=== PATIENT | male | born 1935 | race Caucasian/White ===

== ENCOUNTER → 2020-08-27 09:53 | Outpatient (BNVA) | payer MEDICARE, SELFPAY | PROVIDERS: PCP Internal Medicine; Visit Provider Hospitalist | DX: Q79.1 Other congenital malformations of diaphragm (principal); J96.10 Chronic respiratory failure, unspecified whether with hypoxia or hypercapnia; J41.0 Simple chronic bronchitis | CPT/HCPCS: 99212 ==

== ENCOUNTER → 2021-05-28 10:08 | Outpatient (BNVA) | payer MEDICARE, OTHER, SELFPAY | PROVIDERS: PCP Internal Medicine; Visit Provider Hospitalist | DX: J98.6 Disorders of diaphragm (principal); J96.11 Chronic respiratory failure with hypoxia; J41.0 Simple chronic bronchitis | CPT/HCPCS: 99212 ==

== ENCOUNTER 2021-11-28 12:28 | Outpatient (REF) | payer MEDICARE, OTHER, SELFPAY ==
--- NOTE | ~2021-11-28 | XR_ITS ---
EXAMINATION: XR CHEST CLINICAL INFORMATION: Disorder of diaphragm COMPARISON: Disorder of diaphragm TECHNIQUE: 2 views of the chest were obtained. FINDINGS: The cardiac and mediastinal contours are normal. There is slight increased density in the right medial upper lobe. This may represent overlapping bony structures, the right clavicular head and posterior fifth rib and vasculature. There is subsegmental atelectasis at the left lung base. The lungs are otherwise clear. There is slight eventration of the anterior right hemidiaphragm. There is no pleural effusion or pneumothorax. There are degenerative changes of the spine. XR/XR chest 2V IMPRESSION: Slight eventration of the anterior right hemidiaphragm. Segmental atelectasis of the left lung base. Increased density in the right medial upper lobe, question representing overlapping bone and vascular structures. Comparison with old outside exams recommended.
== END 2021-11-28 12:29 | disposition home or self-care (01) ==
LOC: HO.XRAY 12:28
PROVIDERS: PCP Internal Medicine; Visit Provider Hospitalist
DX: J98.6 Disorders of diaphragm (principal); J96.11 Chronic respiratory failure with hypoxia; J41.0 Simple chronic bronchitis
CPT/HCPCS: 71046; 99212

== ENCOUNTER → 2022-05-29 13:48 | Outpatient (BNVA) | payer MEDICARE, OTHER, SELFPAY | PROVIDERS: PCP Internal Medicine; Visit Provider Hospitalist | DX: J98.6 Disorders of diaphragm (principal); J96.11 Chronic respiratory failure with hypoxia; J41.0 Simple chronic bronchitis; Z79.899 Other long term (current) drug therapy; Z99.81 Dependence on supplemental oxygen | CPT/HCPCS: 99212 ==

== ENCOUNTER 2022-12-04 12:54 | Outpatient (REF) | payer MEDICARE, OTHER, SELFPAY ==
--- NOTE | ~2022-12-04 | XR_ITS ---
EXAMINATION: XR chest 2V CLINICAL INFORMATION: Reason for Exam J98.6 - Disorders of diaphragm COMPARISON: Chest radiograph 11/28/2021 TECHNIQUE: 2 views of the chest FINDINGS: Redemonstration of focal density in the medial aspect of the right upper lobe. Left retrocardiac hazy opacity may reflect aspiration, atelectasis, or infection. No pneumothorax or pleural effusion. Unchanged cardiomediastinal silhouette. XR/XR chest 2V Impression: Redemonstration of focal density in the medial aspect of the right upper lobe. Left retrocardiac hazy opacity may reflect aspiration, atelectasis, or infection. Recommend follow-up to resolution.
== END 2022-12-04 12:55 | disposition home or self-care (01) ==
LOC: HO.XRAY 12:54
PROVIDERS: PCP Internal Medicine; Visit Provider Hospitalist
DX: J41.0 Simple chronic bronchitis (principal); J98.11 Atelectasis; J98.6 Disorders of diaphragm; J96.11 Chronic respiratory failure with hypoxia; I25.2 Old myocardial infarction; Z99.81 Dependence on supplemental oxygen; Z79.899 Other long term (current) drug therapy
CPT/HCPCS: 71046; 99212

== ENCOUNTER 2023-04-09 12:43 | Outpatient (REF) | payer MEDICARE, OTHER, SELFPAY ==
--- NOTE | ~2023-04-09 | XR_ITS ---
EXAMINATION: XR CHEST CLINICAL INFORMATION: Density seen previously about the right medial upper lobe. COMPARISON: 12/04/2022 and 11/28/2021. TECHNIQUE: 2 views of the chest were obtained. FINDINGS: PA image is rotated making direct comparison difficult. No definite acute parenchymal disease is seen. There is again noted to be some increased density about the right medial upper lobe/superior mediastinum. No destructive bony lesions are identified, and there is question an old healed fracture anterior aspect of the 1st rib which may partially contribute to the density. Heart normal size. Coronary artery stents noted. No pneumothorax. Chronic pleural-parenchymal disease is seen left lung base. There is calcification of the anterior longitudinal ligament with bony bridging at multiple levels consistent with DISH. XR/XR chest 2V IMPRESSION: No acute parenchymal disease. Chronic pleural-parenchymal scarring left base. Right upper lobe medial density again present without definite progression or destructive findings.
== END 2023-04-09 12:44 | disposition home or self-care (01) ==
LOC: HO.XRAY 12:43
PROVIDERS: PCP Internal Medicine; Visit Provider Hospitalist
DX: R93.89 Abnormal findings on diagnostic imaging of other specified body structures (principal)
CPT/HCPCS: 71046

== ENCOUNTER 2024-06-03 14:56 | Outpatient (AMB) | payer MEDICARE, OTHER, SELFPAY ==
--- NOTE | 2024-06-03 15:28 | MHC.OFFVIS ---
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 Back in the springtime he did have an exacerbation with bronchitis. He required medicines including antibiotics at this time. He has been feeling better under trilogy inhaler. The trilogy inhaler has improved his respiratory status where he can actually take breaks from the oxygen. Unfortunately, this [facility] is extremely expensive for him to get. Therefore we have to consider an alternative to the trelegy at this time and therefore will try this the O2 with the Flovent inhaler and see if this is as effective. If it is not effective then we will perform a PA through the [place] system in order to getting the medication that he needs. A big issue is that he was admitted to [facility] back in the summertime in April of 2019 with a heart attack. He was taking care [facility]. He did have a chest x-ray there not take a look at that to make sure that we add that to the documentation. He has been using the oxygen and it has been very helpful and beneficial. 12/04/2022 the patient is here for a pulmonary follow-up visit. Overall the patient continues to do well. The oxygen therapy has been affecting beneficial. He does use it with activity and also with sleep. The patient continues with his respiratory therapy with good effect. We again looked at his previous chest x-ray demonstrating elevation in the diaphragm and also atelectasis. He continues on the Trelegy inhaler with good effect. He needs to monitor closely for any worsening glaucoma. Will follow-up in 12 months with cxr. 06/03/2024 the patient is here for a pulmonary follow-up visit. Overall the patient has been doing well. Continues to have dyspnea on exertion. [id number] severity. He also continues to use the oxygen with good effect. We did review his previous chest x-ray demonstrating some pleural parenchymal scarring. This is likely related to his exposure to asbestos. 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 Subsequently after that after he returned from the he was diagnosed with tuberculosis where he spent 8-9 months in a solitary him. The patient ultimately was released after complete treatment of the disease. And therefore left with some scarring of the lungs as well. He continues uses respiratory therapy with good effect. The patient also has been using the oxygen with good effect. Will have him get a chest x-ray today to see if there is any progression of his underlying pleural parenchymal disease. [facility] Medical History (Updated 06/05/24 @ 22:15 by Phuc Card MD) Tuberculosis Asbestos-induced pleural plaque Abnormal chest x-ray Atelectasis Elevated diaphragm Chronic respiratory failure COPD (chronic obstructive pulmonary disease) Family History (Updated 08/06/20 @ 22:23 by Phuc Card MD) Father No problems noted. Social History (Updated 05/28/21 @ 10:42 by Shanon Boyd Martin) Patient Tobacco Use Status: Former Tobacco user Tobacco use type: Cigarette Years Smoked: Quit 1997 Physical Exam Vital Signs: Last Vital Signs Pulse 73 06/03/24 15:29 BP 128/76 06/03/24 15:29 Pulse Ox 93 06/03/24 15:29 Oxygen Delivery Method Room Air 06/03/24 15:29 BMI result Body Mass Index 27.3 Results Reviewed Results Reviewed: [address] [address] XRay Report Signed Patient: Leonel Maldonado MR#: [id number] : 1935 Acct:[id number] Age/Sex: 87 / M ADM Date: 04/09/23 Loc: [facility] Attending Dr: Phuc Card MD Ordering Physician: Phuc Card MD Date of Service: 04/09/23 Procedure(s): XR chest 2V Accession Number(s): [id number] cc: Phuc Card MD~ EXAMINATION: XR CHEST CLINICAL INFORMATION: Density seen previously about the right medial upper lobe. COMPARISON: 12/04/2022 and 11/28/2021. TECHNIQUE: 2 views of the chest were obtained. FINDINGS: PA image is rotated making direct comparison difficult. No definite acute parenchymal disease is seen. There is again noted to be some increased density about the right medial upper lobe/superior mediastinum. No destructive bony lesions are identified, and there is question an old healed fracture anterior aspect of the 1st rib which may partially contribute to the density. Heart normal size. Coronary artery stents noted. No pneumothorax. Chronic pleural-parenchymal disease is seen left lung base. There is calcification of the anterior longitudinal ligament with bony bridging at multiple levels consistent with DISH. XR/XR chest 2V IMPRESSION: No acute parenchymal disease. Chronic pleural-parenchymal scarring left base. Right upper lobe medial density again present without definite progression or destructive findings. Dictated By: Daniele Mills MD Signed By: <Electronically signed by Daniele Mills MD in [place]> 04/16/23 1044 DD/ 1300 TD/TT: Scientific Manager: GILES Assessment & Plan Assessment & Plan (1) Elevated diaphragm: Comment: chronic Code(s): J98.6 - Disorders of diaphragm Category: Medical Plan: Incentive spirometry (2) Chronic respiratory failure: Comment: Due to chronic stable COPD Code(s): J96.10 - Chronic respiratory failure, unspecified whether with hypoxia or hypercapnia Category: Medical Qualifiers: Respiratory failure complication: hypoxia Qualified Code(s): J96.11 - Chronic respiratory failure with hypoxia Plan: Continue oxygen supplementation 2 L pulse with activity and 2 L at night (3) COPD (chronic obstructive pulmonary disease): Code(s): J44.9 - Chronic obstructive pulmonary disease, unspecified Category: Medical Qualifiers: COPD type: chronic bronchitis Chronic bronchitis type: simple Qualified Code(s): J41.0 - Simple chronic bronchitis Plan: Cont respiratory therapy (4) Asbestos-induced pleural plaque: Code(s): J92.0 - Pleural plaque with presence of asbestos Category: Medical (5) Tuberculosis: Comment: s/p treatment, with persistent RUL fibrosis Code(s): A15.9 - Respiratory tuberculosis unspecified Category: Medical Plan Chest x-ray continue Trelegy inhaler continue oxygen supplementation with activity at 2L/pulse and sleep 2L the patient does have evidence of asbestos disease in addition to his history of tuberculosis likely both related to his time serving in the [employer]. follow-up 12 months Orders: Orders XR chest 2V 06/03/24 J92.0 - Pleural plaque with presence of asbestos Coding Level of Care Code Est Pt Level 4 (65851) Diagnoses Elevated diaphragm J98.6 Chronic respiratory failure with hypoxia J96.11 Respiratory failure complication: hypoxia Simple chronic bronchitis J41.0 COPD type: chronic bronchitis Chronic bronchitis type: simple Asbestos-induced pleural plaque J92.0 Tuberculosis A15.9 Time Spent (min) 18
[2024-06-03 15:29] VITALS: BP 128/76; PULSE 73; O2SAT 93; BMI 27.3
== END 2024-06-03 15:54 | disposition home or self-care (01) ==
PROVIDERS: PCP Internal Medicine; Visit Provider Hospitalist
DX: J98.6 Disorders of diaphragm (principal); J96.11 Chronic respiratory failure with hypoxia; J41.0 Simple chronic bronchitis; J92.0 Pleural plaque with presence of asbestos; A15.9 Respiratory tuberculosis unspecified
CPT/HCPCS: 99214

== ENCOUNTER 2024-06-03 14:56 | Outpatient (REF) | payer MEDICARE, OTHER, SELFPAY ==
--- NOTE | ~2024-06-03 | XR_ITS ---
EXAMINATION: XR CHEST CLINICAL INFORMATION: J92.0 - Pleural plaque with presence of asbestos COMPARISON: X-ray dated April 09, 2023. TECHNIQUE: 2 views of the chest were obtained. FINDINGS: Submitted for interpretation on August 15, 2024. Ill-defined masslike opacity in the medial right upper hemithorax. Pulmonary reticular pattern. Prominence of the interstitial lung markings. Opacity left lower hemithorax with a linear/horizontal morphology pattern. No pneumothorax. Cardiomediastinal silhouette is normal in size with calcified plaque aortic arch. Multilevel thoracic spondylosis. Osteopenia versus osteoporosis. XR/XR chest 2V IMPRESSION: Airspace disease versus malignancy in the right upper hemithorax. Chronic interstitial lung disease. Recommend IV contrast enhanced CT chest for further imaging evaluation. Electronically signed by: Arnulfo Gonzalez MD 08/15/2024 09:06 AM [facility]
== END 2024-06-03 14:57 | disposition home or self-care (01) ==
LOC: HO.XRAY 14:56
PROVIDERS: PCP Internal Medicine; Visit Provider Hospitalist
DX: J92.0 Pleural plaque with presence of asbestos (principal); J98.6 Disorders of diaphragm; J96.11 Chronic respiratory failure with hypoxia; J41.0 Simple chronic bronchitis; A15.9 Respiratory tuberculosis unspecified
CPT/HCPCS: 71046; 99212

== ENCOUNTER → 2024-06-03 16:01 | Outpatient (BNV) | payer MEDICARE, OTHER, SELFPAY | PROVIDERS: PCP Internal Medicine; Visit Provider Radiology Diagnostic Radiology | DX: J92.0 Pleural plaque with presence of asbestos (principal) | CPT/HCPCS: 71046 ==

== ENCOUNTER 2024-09-30 12:25 | Outpatient (REF) | payer MEDICARE, OTHER, SELFPAY ==
--- NOTE | ~2024-09-30 | CT_ITS ---
EXAMINATION: CT CHEST WITHOUT IV CONTRAST INDICATION: R93.89 - Abnormal findings on diagnostic imaging of other specified body... COMPARISON: Correlation is made with PA and lateral views of the chest dated 06/03/2024. TECHNIQUE: Helical CT scan of the chest was performed without intravenous contrast. Coronal and sagittal reformatted images were generated and reviewed. This CT exam was performed with one or more of the following dose reduction techniques: automated exposure control, adjustment of the mA and/or kV according to patient size, use of iterative reconstruction technique. DLP: 223 mGy-cm CHEST: THYROID: There is a 2.1 cm nodule in the right thyroid lobe. LUNGS:There are moderate emphysematous changes. There is subpleural scarring and interstitial prominence bilaterally. No focal airspace opacity or mass is identified to correspond to the abnormality noted on chest x-ray. MEDIASTINUM: There are 10 mm pericarinal lymph nodes. AYAN: Evaluation of the hilar regions is limited by lack of intravenous contrast material. CARDIOVASCULATURE: The heart is normal in size. There is no pericardial effusion. The thoracic aorta is normal in caliber. DEGREE OF CORONARY CALCIFICATION: severe PLEURA: There is no pleural effusion. No pneumothorax. MAIN AIRWAYS: The mainstem bronchi and proximal branches are patent. AXILLA: There is no axillary lymphadenopathy. BONES AND SOFT TISSUES: There is degenerative disc disease of the spine. UPPER ABDOMEN: The visualized portions of the liver, spleen, and adrenals have an unremarkable appearance. CT/CT chest wo IV con IMPRESSION: 1. Moderate emphysema. Subpleural scarring and interstitial prominence. No mass or airspace opacity is seen to correspond to the abnormality noted on chest x-ray from 06/03/2024. This likely represented pneumonia which resolved in the interim. 2. 2.1 cm right thyroid nodule. Thyroid ultrasound is suggested. Electronically signed by: Mario Capps MD 10/03/2024 09:12 AM [facility]
== END 2024-09-30 12:26 | disposition home or self-care (01) ==
LOC: HO.CT 12:25
PROVIDERS: PCP Internal Medicine; Visit Provider Hospitalist
DX: R93.89 Abnormal findings on diagnostic imaging of other specified body structures (principal)
CPT/HCPCS: 71250

== ENCOUNTER → 2024-09-30 12:30 | Outpatient (BNV) | payer MEDICARE, OTHER, SELFPAY | PROVIDERS: PCP Internal Medicine; Visit Provider Radiology Diagnostic Radiology | DX: J43.9 Emphysema, unspecified (principal); E04.1 Nontoxic single thyroid nodule | CPT/HCPCS: 71250 ==

== ENCOUNTER 2024-11-16 09:30 | Outpatient (AMB) | payer MEDICARE, OTHER, SELFPAY ==
[2024-11-16 09:38] VITALS: BP 140/68; PULSE 63; O2SAT 94; BMI 29.0
--- NOTE | 2024-11-16 09:38 | A.OFFVIS_ITS ---
Vital Signs 11/16/24 09:38 Height 6 ft Weight 213 lb 13.574 oz BMI 29.0 BP 140/68 H Blood Pressure Location Rt brachial Position Sitting Pulse 63 Pulse Source Pulse Oximeter Pulse Oximetry (%) 94 Oxygen Delivery Method Room Air Intake Visit Reasons: COPD Allergies Sulfa Drugs Allergy (Intermediate, Uncoded 11/16/24 09:43) Vomiting HPI Comments Details: The patient is an 89-year-old gentleman known COPD and MTB. Back in the springtime he did have an exacerbation with bronchitis. He required medicines including antibiotics at this time. He has been feeling better under trilogy inhaler. The trilogy inhaler has improved his respiratory status where he can actually take breaks from the oxygen. Unfortunately, this inhalers not cover [facility] the [facility] is extremely expensive for him to get. Therefore we have to consider an alternative to the trelegy at this time and therefore will try this the O2 with the Flovent inhaler and see if this is as effective. If it is not effective then we will perform a PA through the [facility] system in order to getting the medication that he needs. A big issue is that he was admitted to [facility] back in the summertime in April of 2019 with a heart attack. He was taking care [facility]. He did have a chest x-ray there not take a look at that to make sure that we add that to the documentation. He has been using the oxygen and it has been very helpful and beneficial. 12/04/2022 the patient is here for a pulmonary follow-up visit. Overall the patient continues to do well. The oxygen therapy has been affecting beneficial. He does use it with activity and also with sleep. The patient continues with his respiratory therapy with good effect. We again looked at his previous chest x-ray demonstrating elevation in the diaphragm and also atelectasis. He continues on the Trelegy inhaler with good effect. He needs to monitor closely for any worsening glaucoma. Will follow-up in 12 months with cxr. 06/03/2024 the patient is here for a pulmonary follow-up visit. Overall the patient has been doing well. Continues to have dyspnea on exertion. [id number] severity. He also continues to use the oxygen with good effect. We did review his previous chest x-ray demonstrating some pleural parenchymal scarring. This is likely related to his exposure to asbestos. 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 Subsequently after that after he returned from the he was diagnosed with tuberculosis where he spent 8-9 months in a solitary him. The patient ultimately was released after complete treatment of the disease. And therefore left with some scarring of the lungs as well. He continues uses respiratory therapy with good effect. The patient also has been using the oxygen with good effect. Will have him get a chest x-ray today to see if there is any progression of his underlying pleural parenchymal disease. 11/16/2024 the patient is here for a pulmonary follow-up visit. Overall he is doing okay. The patient had 1 episode were right-sided chest discomfort. He did take the inhaler and then place him oxygen and he felt better. Has not had any more episodes like that. He does have some reproducible discomfort on the right acromion joint. He also did have a CT scan of the chest on 10/03/2024 that we personally reviewed in the office. No abnormalities to explain the right- sided chest discomfort. Although the patient does have moderate degree of e mphysema, pleural thickening with some small areas of asbestos. In addition to some interstitial lung disease. I do believe that she has his time in the [employer] exposed to asbestos resulted in some of these changes. In addition to this he does have thyroid nodule on the right side. It was recommended that he get an ultrasound. Will go ahead and request the ultrasound at this time and then he should follow-up with either primary care or endocrinology. He will continue with the Trelegy. Will see if we can get the medication from the [place] since it has been working effectively for him. He continues use the oxygen with good effect. Will follow-up in 6 months. [facility] Medical History (Updated 11/16/24 @ 10:00 by Phuc Card MD) Thyroid nodule Tuberculosis Asbestos-induced pleural plaque Abnormal chest x-ray Atelectasis Elevated diaphragm Chronic respiratory failure COPD (chronic obstructive pulmonary disease) Family History (Updated 08/06/20 @ 22:23 by Phuc Card MD) Father No problems noted. Social History Patient Tobacco Use Status: Former Tobacco user Tobacco use type: Cigarette Years Smoked: Quit 1997 Review of Systems Const Denies night sweats Eyes Reports loss of vision ENT Denies change in voice, Denies lip swelling, Denies mouth pain, Reports nasal congestion, Reports nasal discharge and Denies tongue swelling Card Denies chest pain and Reports dyspnea on exertion Resp Reports cough and Reports dyspnea on exertion GI Denies abdominal pain Musc Denies no additional complaints Neuro Denies Neuro-related abnormal movements and Reports loss of vision Psych Denies no additional complaints Russ/Lymph Denies easy bleeding and Denies lymphadenopathy Aller/Immun Denies lip swelling and Denies tongue swelling Physical Exam Vital Signs: Last Vital Signs Pulse 63 11/16/24 09:38 BP 140/68 H 11/16/24 09:38 Pulse Ox 94 11/16/24 09:38 Oxygen Delivery Method Room Air 11/16/24 09:38 BMI result Body Mass Index 29.0 Const General: alert Neck Neck: Yes normal visual inspection, Yes full ROM and Yes no lymphadenopathy Chest Chest palpation & inspection: normal inspection of the chest Resp Auscultation: no rales, no rhonchi, no wheezes and diminished lung sounds Cardio Rate: regular rate Rhythm: regular rhythm Heart sounds: S1 normal heart sound present and S2 normal heart sound present GI Palpation (GI): Soft to palpation and nontender Auscultation: normal bowel sounds General: Yes no CVA tenderness Back/Spine/Pelvis Back: no CVA tenderness Skin General skin exam: rashes and/or lesions noted Assessment & Plan Assessment & Plan (1) Elevated diaphragm: Comment: chronic Code(s): J98.6 - Disorders of diaphragm Category: Medical Plan: Incentive spirometry (2) Chronic respiratory failure: Comment: Due to chronic stable COPD Code(s): J96.10 - Chronic respiratory failure, unspecified whether with hypoxia or hypercapnia Category: Medical Qualifiers: Respiratory failure complication: hypoxia Qualified Code(s): J96.11 - Chronic respiratory failure with hypoxia Plan: Continue oxygen supplementation 2 L pulse with activity and 2 L at night (3) COPD (chronic obstructive pulmonary disease): Code(s): J44.9 - Chronic obstructive pulmonary disease, unspecified Category: Medical Qualifiers: COPD type: chronic bronchitis Chronic bronchitis type: simple Qualified Code(s): J41.0 - Simple chronic bronchitis Plan: Cont respiratory therapy (4) Asbestos-induced pleural plaque: Code(s): J92.0 - Pleural plaque with presence of asbestos Category: Medical (5) Tuberculosis: Comment: s/p treatment, with persistent RUL fibrosis Code(s): A15.9 - Respiratory tuberculosis unspecified Category: Medical (6) Thyroid nodule: Code(s): E04.1 - Nontoxic single thyroid nodule Category: Medical Plan CT chest with pleural thickening and some asbestos, ILD and emphysema continue Trelegy inhaler continue oxygen supplementation with activity at 2L/pulse and sleep 2L the patient does have evidence of asbestos disease in addition to his history of tuberculosis likely both related to his time serving in the [employer]. Thyroid US follow-up 6 months Orders: Orders US thyroid Today E04.1 - Nontoxic single thyroid nodule Medications: Refilled [id number] 100-62.5-25 mcg (Trelegy Ellipta) 1 inh inhalation DAILY 60 ea 11RF 30 days J44.9 - Chronic obstructive pulmonary disease, unspecified Coding Level of Care Code Est Pt Level 4 (45207) Diagnoses Elevated diaphragm J98.6 Chronic respiratory failure with hypoxia J96.11 Respiratory failure complication: hypoxia Simple chronic bronchitis J41.0 COPD type: chronic bronchitis Chronic bronchitis type: simple Asbestos-induced pleural plaque J92.0 Tuberculosis A15.9 Thyroid nodule E04.1 Time Spent (min) 17
--- OUTSIDE RECORDS SUMMARY | 2024-11-16 10:44 | XMS_ITS ---
Author Name [facility] ([place]) Organization [facility] Address [address] [place] [address] Care Team Providers Care Lead Technologist In Cytogenetics Name Role Phone GILES FUENTES Primary Care Provider UnavailBILLIE Lr Unavailable Unavailable MONIKA FUENTES Unavailable Unavailable JACOB DOTSON Unavailable Unavailable FARIDEH HOLLAND Unavailable Unavailable TYLER NICOLE Unavailable UnavailRUDY Wood Unavailable Unavailable JOSE DE JESUS MONTGOMERY Unavailable Unavailable Insurance Providers: All historical and current Section Date Range: From patient's date of to the date document was created. This section includes the names of all active insurance providers for the patient. Insurance Provider Type of Coverage Plan Name Start of Policy Coverage End of Policy Coverage Group Number Member ID Insurance Provider's Telephone Number Policy Mccullough's Name Patient's Relationship to Policy Mccullough CAREMARK PRESCRIPT ION GEHA Sep 14, 2014 [id number] [phone] FANY LEMUS ON PATIENT CAREMARK PRESCRIPT ION SUSI ATKINSON Sep 14, 2014 [id number] [phone] FANY LEMUS ON PATIENT CAREMARK PRESCRIPT ION Sep 14, 2014 [id number] ALLAN,MYR ON PATIENT GEHA (SECONDARY ) PREFERRED PROVIDER ORGANIZAT ION (PPO) HIGH OPTIO N [facility] A&B Sep 14, 2005 [id number] ALLAN,MYR ON PATIENT GEHA (SECONDARY ) PREFERRED PROVIDER ORGANIZAT ION (PPO) GEHA CONNE CTION DENT Sep 14, 2005 [id number] ALLAN,MYR ON PATIENT GEHA FEHB PREFERRED PROVIDER ORGANIZAT ION (PPO) SUSI AL GOV Sep 14, 2005 [id number] [id number] ALLAN,MYR ON PATIENT GEHA FEHB PREFERRED PROVIDER ORGANIZAT ION (PPO) SUSI AL* Sep 14, 1989 [id number] [id number] ALLAN,MYR ON PATIENT GEHA-BEHAV [facility] GEHA HIGH OPTIO N Sep 14, 2021 [id number] ALLAN,MYR ON PATIENT MEDICARE (WNR) MEDICARE (M) PART A May 15, 2000 PART A [id number] ALLAN,MYR ON PATIENT MEDICARE (WNR) MEDICARE (M) PART B May 15, 2000 PART B [id number] ALLAN,MYR ON PATIENT MEDICARE (WNR) MEDICARE (M) PART A May 15, 2000 PART A [id number] ALLAN,MYR ON PATIENT MEDICARE (WNR) MEDICARE (M) PART B May 15, 2000 PART B [id number] ALLAN,MYR ON PATIENT MEDICARE (WNR) MEDICARE (M) PART A May 15, 2000 PART A [id number] ALLAN,MYR ON PATIENT MEDICARE (WNR) MEDICARE (M) PART B May 15, 2000 PART B [id number] ALLAN,MYR ON PATIENT MEDICARE (WNR) MEDICARE (M) PART A May 15, 2000 PART A [id number] FANY LEMUS ON PATIENT MEDICARE (WNR) MEDICARE (M) PART B May 15, 2000 PART B [id number] FANY LEMUS ON PATIENT Selected Encounter This section includes the information on record at [place] for the Encounter. Date/Time Encounter Type Encounter Description Reason Provider Source Nov 09, 2024 04:00 PM SELF CARE MNGMENT TRAINING [facility] Nursing (RN / LP) ICD-10-CM I10 Essential (primary) hypertension FRANSICO MCNAIR E Encounter Template Text not used by [place] Assessments - Encounter Diagnoses This section includes the primary and secondary diagnoses documented for the Encounter. Date/Time Primary/Secondary Diagnosis Diagnosis Name Provider Source Nov 13, 2024 06:19 PM PRIMARY Essential (primary) hypertension FRANSICO MCNAIR [place] [facility] [place] [facility] Nov 13, 2024 06:19 PM SECONDARY Athscl heart disease of [place] coronary artery w/o ang pctrs FRANSICO MCNAIR [place] [facility] [place] [facility] Nov 13, 2024 06:19 PM SECONDARY Carcinoma in situ of prostate VIRGILIO MCNAIRE N [place] [facility] [place] [facility] Nov 13, 2024 06:19 PM SECONDARY Legal blindness, as defined in [place] FRANSICO MCNAIR [place] [facility] [place] [facility] Nov 13, 2024 06:19 PM SECONDARY Other specified chronic obstructive pulmonary disease FRANSICO MCNAIR [place] [facility] [place] [facility] Plan of Treatment: Future Appointments (+ 6 months) and Future Tests (+/- 45 days) The Plan of Treatment section includes future care activities for the patient from all [place] treatmentfacilities. This section includes future appointments and future orders which are active, pending or scheduled. Future Appointments This section includes appointments that were scheduled to occur 6 months from the date of the Encounter, up to a maximum of 20 appointments. The data comes from all [place] treatment facilities. Appointment Date/Time Appointment Type Appointme nt Facility Name Feb 24, 2025 11:30 AM AMBULATORY - MEDICINE [facility] Apr 13, 2025 02:30 PM AMBULATORY - MEDICINE [place] [facility] [place] [facility] Active, Pending, and Scheduled Orders This section includes a listing of several types of active, pending, and scheduled orders, including clinic medications orders, diagnostic test orders, procedure orders and consult orders; where the start date of the order is 45 days before the date of the Encounter or 45 days after the date of theEncounter. The data comes from all [place] treatment facilities. Test Date/Time Test Type Test Details Facility Name Oct 17, 2024 08:00 AM Laboratory - Chemistry Order HEMOGLOBIN A1C PANEL BLOOD (LAV-BLOOD) SP [facility] Lab Results: +/- 30 days of the encounter This section includes the Chemistry and Hematology Lab Results on record with [place] for the patient. Radiology Reports and Pathology Reports are provided separately, in subsequent sections. Lab Results This section contains the Chemistry/Hematology Results that were resulted 30 days before or 30 daysafter the date of the Encounter. Date/Time Source Result Type Result - Unit Interpretation Reference Range Comment Oct 21, 2024 11:05 AM [facility] VITAMIN D (25-OH) Specimen Type: SERUM No comment entered. Ordering Provider: GILES FUENTES Report Released Date/Time: Sep 02, 2024 08:56 AM Reporting Lab: [facility] [address] [facility] [address] Performing Lab: [address] [address] VITAMIN D (25-OH) 39 ng/mL 20-50 Oct 21, 2024 11:05 AM [facility] PTH INTACT Specimen Type: SERUM No comment entered. Ordering Provider: GILES FUENTES Report Released Date/Time: Sep 02, 2024 08:56 AM Reporting Lab: [facility] [address] [address] Performing Lab: [address] [address] PTH INTACT 77.4 pg/mL H 8.7-77.1 Oct 21, 2024 11:05 AM [facility] MICROALBUMIN CREATININE RATIO PANEL Specimen Type: URINE No comment entered. Ordering Provider: GILES FUENTES Report Released Date/Time: Sep 02, 2024 08:56 AM Reporting Lab: [address] [address] Performing Lab: [address] [address] MICROALBUMIN/C REATININE RATIO 11.9 mg/g 0-29.9 MICROALBUMIN,Q UANTITATIVE 2.4 mg/dL RR UNAVAIL CREATININE URINE 202.37 mg/dL Oct 21, 2024 11:05 AM [facility] LIVER FUNCTION Specimen Type: SERUM No comment entered. Ordering Provider: GILES FUENTES Report Released Date/Time: Sep 02, 2024 08:56 AM Reporting Lab: [address] [address] Performing Lab: [address] [address] PROTEIN,TOTAL 7.8 g/dL 6.0-8.3 ALBUMIN 3.9 g/dL 3.5-5.0 ALKALINE PHOSPHATASE 160 U/L H 40-150 AST 22 U/L 5-34 ALT 28 U/L BILIRUBIN, TOTAL 0.8 mg/dL 0.2-1.2 Oct 21, 2024 11:05 AM [facility] BASIC METABOLIC PANEL (non-fasting) Specimen Type: SERUM No comment entered. Ordering Provider: GILES FUENTES Report Released Date/Time: Sep 02, 2024 08:56 AM Reporting Lab: [address] [address] Performing Lab: [address] [address] UREA NITROGEN 32 mg/dL H 7-25 GLUCOSE 122 mg/dL H 65-100 SODIUM 140 mmol/L 135-145 POTASSIUM 4.9 mmol/L 3.5-5.0 CHLORIDE 104 mmol/L 100-110 CO2 27 meq/L 20-30 CREATININE, Serum 1.06 mg/dL 0.50-1.40 eGFR(CKD-EPI 2020) 67 mL/min >60 Oct 21, 2024 11:05 AM [facility] LIPID PANEL, NON FASTING Specimen Type: SERUM No comment entered. Ordering Provider: GILES FUENTES Report Released Date/Time: Sep 02, 2024 08:58 AM Reporting Lab: [facility] [address] [facility] [address] Performing Lab: [address] [address] CHOLESTEROL 139 mg/dL TRIGLYCERIDE 129 mg/dL 0-150 LDL calculated 69 mg/dL 0-129 CHOL/HDL 3.2 HDL CHOLESTEROL 44 mg/dL 40-60 Oct 21, 2024 11:05 AM [facility] CBC Specimen Type: BLOOD No comment entered. Ordering Provider: GILES FUENTES Report Released Date/Time: Sep 02, 2024 08:56 AM Reporting Lab: [address] [address] Performing Lab: [address] [address] WBC 8.46 10*3/uL 4.50-11.00 RBC 4.86 10*6/uL 4.23-5.66 HGB 14.9 g/dL 12.8-17 HCT 45.7 39.2-50.4 MCV 94.0 fL 82-99 MCHC 32.6 g/dL 30.8-35.1 PLT 180 10*3/uL 140-360 RDW-CV 12.9 12.0-16.0 MCH 30.7 pg 26.2-32.6 Oct 21, 2024 11:05 AM [facility] GAMMA-GTP Specimen Type: SERUM No comment entered. Ordering Provider: GILES FUENTES Report Released Date/Time: Oct 21, 2024 03:59 PM Reporting Lab: [address] [address] Performing Lab: [address] [address] GAMMA-GTP 116 U/L H 10-65 Oct 12, 2024 01:30 PM [facility] PSA Specimen Type: SERUM No comment entered. Ordering Provider: GILES FUENTES Report Released Date/Time: Oct 12, 2024 01:21 PM Reporting Lab: [place] [facility] [address] [facility] [address] Performing Lab: [facility] [address] [facility] [address] PSA 36.05 ng/mL H 0.00-4.00 Vital Signs: All taken on the encounter date This section contains inpatient and outpatient Vital Signs collected on the date of the Encounter. Date/Time Temperature Pulse Blood Pressure Respiratory Rate SP02 Pain Height Weight Body Mass Index Source Nov 09, 2024 04:00 PM 96.8 68 110/60 18 96 0 204 29 [facility] Social History: Smoking Status (Most current) and Tobacco Use (All prior to encounter date) This section includes the most current, and the historical, smoking and tobacco- related health factors from the [place] facility where the Encounter took place. Current Smoking Status This section includes the most current smoking, or tobacco-related health factor, from the [place] facility where the Encounter took place. Date/Time Current Smoking Status Comment Facil ity Aug 31, 2024 01:52 PM VA-TOBACCO USE FOR BERNICE CIGARETTES [facility] Tobacco Use History This section includes a history of the smoking, or tobacco-related health factors, that were collected on or before the date of the Encounter. The data comes from the [place] facility where the Encounter took place. Date/Time Smoking Status/Tobacco Use Comment F acility Aug 31, 2024 01:52 PM VA-TOBACCO USE FOR BERNICE CIGARETTES [place] [facility] [place] [facility] Sep 02, 2023 05:30 PM VA-TOBACCO FORMER USER [place] [facility] [place] [facility] Sep 02, 2023 05:30 PM VA-TOBACCO QUIT 15 YRS OR MORE [place] [facility] [place] [facility] Apr 24, 2022 01:00 PM VA-TOBACCO FORMER USER [place] [facility] [place] [facility] Apr 24, 2022 01:00 PM VA-TOBACCO QUIT 15 YRS OR MORE [facility] [place] [facility] Dec 05, 2021 02:00 PM VA-TOBACCO USE DEC LINED TO ANSWER [facility] [place] [facility] Nov 24, 2021 04:05 PM VA-TOBACCO USE DEC LINED TO ANSWER [place] [facility] [place] [facility] Sep 20, 2020 08:40 AM VA-TOBACCO NEVER USED [place] [facility] Advance Directives: All historical and current Section Date Range: From patient's date of to the date document was created. This section includes ALL of a patient's completed or amended [place] Advance and Rescinded Directives. The entries below indicate that a directive exists for the patient, but an actual copy is not included with this document. The data comes from all [place] facilities. Date Advance Directives Provider Source Nov 11, 2016 ADVANCE DIRECTIVE ELROY CHÁVEZ [place] [facility] [place] [facility] Jul 08, 2006 ADVANCE DIRECTIVE [facility] Encounter Notes: All associated encounter notes This section contains the clinical notes associated to the Encounter. Date/Time Encounter Note(s) Provider Source Nov 09, 2024 04:00 PM [facility] NURSING NOTE: LOCAL TITLE: [facility] RN PROGRESS NOTE STANDARD TITLE: [facility] NURSING NOTE DATE OF NOTE: NOV 09, 2024@16:00 ENTRY DATE: NOV 13, 2024@18:02:16 AUTHOR: ADALGISA MCNAIR COSIGNER: URGENCY: STATUS: COMPLETED Nursing Progress Note Active and Recently Outpatient Medications (including Supplies): Active Outpatient Medications Status 1) ALBUTEROL 90MCG (CFC-F) 200D ORAL INHL INHALE 1 TO 2 PUFFS ACTIVE BY MOUTH FOUR TIMES DAILY NEEDED Indication: FOR BRONCHOSPASM 2) AMLODIPINE BESYLATE 10MG TAB TAKE ONE TABLET BY MOUTH ONCE ACTIVE DAILY FOR BLOOD PRESSURE/HEART, DO NOT TAKE WITH GRAPEFRUIT JUICE 3) ASPIRIN 81MG EC TAB TAKE ONE TABLET BY MOUTH ONCE DAILY TO ACTIVE PREVENT STROKE/HEART ATTACK Indication: FOR BLOOD CLOT PREVENTION FOLLOWING PCI 4) ATORVASTATIN CALCIUM 80MG TAB TAKE ONE TABLET BY MOUTH ONCE ACTIVE DAILY FOR CHOLESTEROL 5) BREZTRI 160/9/4.8MCG/ACT 120D ORAL INHL INHALE 2 INHALATIONS ACTIVE BY MOUTH TWICE DAILY -RINSE MOUTH AFTER USE Indication: FOR BRONCHOSPASM PREVENTION WITH COPD 6) BRIMONIDINE 0.2%/BRINZOLAMID 1% OPH SUSP INSTILL 1 DROP INTO ACTIVE EACH EYE TWICE DAILY 7) CARVEDILOL 3.125MG TAB TAKE ONE TABLET BY MOUTH TWICE DAILY ACTIVE Indication: FOR HIGH BLOOD PRESSURE 8) CHOLECALCIF 25MCG (D3-1,000UNIT) TAB TAKE ONE TABLET BY ACTIVE MOUTH ONCE DAILY FOR VITAMIN SUPPLEMENTATION 9) EPLERENONE 25MG TAB TAKE ONE TABLET BY MOUTH ONCE DAILY ACTIVE Indication: FOR HIGH BLOOD PRESSURE 10) KETOCONAZOLE 2% CREAM APPLY A THIN LAYER TOPICALLY TWICE ACTIVE DAILY NEEDED Indication: FOR SEBORRHEIC DERMATITIS 11) LATANOPROST 0.005% OPH SOLN INSTILL 1 DROP INTO EACH EYE AT ACTIVE BEDTIME 12) LOSARTAN 100MG TAB TAKE ONE TABLET BY MOUTH ONCE DAILY FOR ACTIVE BLOOD PRESSURE/HEART Indication: FOR HIGH BLOOD PRESSURE 13) MULTIVIT/OPHTH AREDS2/LUTE/ZEAX CAP/TAB TAKE 1 CAPSULE BY ACTIVE MOUTH TWICE DAILY IN THE MORNING AND EVENING, WITH FOOD 14) PRIMIDONE 50MG TAB TAKE ONE TABLET BY MOUTH THREE TIMES A ACTIVE DAY 15) TIMOLOL MALEATE 0.5% OPH SOLN INSTILL 1 DROP INTO EACH EYE ACTIVE TWICE DAILY 16) TORSEMIDE 20MG TAB TAKE ONE TABLET BY MOUTH ONCE DAILY ACTIVE Inactive Outpatient Medications Status 1) DOCUSATE NA 100MG CAP TAKE ONE CAPSULE BY MOUTH TWICE DAILY NEEDED TO SOFTEN STOOL Indication: FOR CONSTIPATION 2) KETOCONAZOLE 2% SHAMPOO SHAMPOO SMALL AMOUNT TOPICALLY ONCE DAILY Indication: FOR FUNGAL INFECTION OF THE SKIN Active Non-VA Medications Status 1) Non-VA OXYGEN MISCELLANEOUS 2 LITERS VIA NC AT NIGHT ACTIVE DIRECTED NEEDED 19 Total Medications MEDICATION REVIEW Medication review completed during home visit. The was given the opportunity to discuss and ask questions about all prescription medications as well as dietary and herbal supplements, vitamins, OTC medications, etc. Currently the is taking his/her medications as per the active orders in the electronic record. A copy of the active medication list was left in patient's home at time of visit. identified by: Facial Recognition Length of visit in home:45 min Problem addressed for this visit:COPD, Med compliance, blindness, HTN NURSING SUMMARY:Visit made to at home for assessment, med prefill. and Kely present during visit No recent falls, No ER visits, feeling well. In good spirits. Paisley had pulmonology visit and podiatry visit since last visit. was told at last eye appt to use Lubricant Eye gel drops at night for eye dryness, [facility] of chest, has appt next week to go over results. Paisley no longer using Breztri, he stopped as it was too much work to use it twice a day, he also felt more short of breath in the afternoons while on Breztri. Paisley prefers Trelegy. Paisley's blood pressures and heart rate have been wnl. does not have an increase in shortness of breath, denies cough. Using oxygen at night only. had urology visit but his last PSA was never discussed. His last PSA was 36 in September. LAbs were faxed to [facility] prior to their visit. Suggested they follow up with Urology. Meds prefilled for 30 days as ordered. compliant with taking meds. Reviewed refills needed. Using eye drops as ordered, does not need any refills except for the gel drops they are asking for. refuses STRATEGIC PLANNING CONSULTANT referral despite needing one for personal care. He will let this information writer know if he changes his mind. Will continue to offer services. Blood Pressure: 110/60 (11/09/2024 16:00) Pulse: 68 (11/09/2024 16:00) Respiration: 18 (11/09/2024 16:00) Temperature: 96.8 F [36.0 C] (11/09/2024 16:00) Pain Score: 0 (11/09/2024 16:00) EXAMINATION: Lungs: clear Edema: no edema HR: reg, rate in 60's Bowel/Bladder: BM's wnl, urine clear Skin: intact skin, dry over feet and lower legs. Advised to apply lotion/cream a few times a week. Try to keep feet clean and dry. USES WHITE CANE WHEN GOES OUT. 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 auto club travel counselor, cigarettes Yes Comments: Cooks or heats with gas stove No Comments: Open flames, i.e. candles present, wood burning stove or fireplace No Comments: Functioning smoke detector present Yes Comments: Oxygen cylinders either in a stand or lying flat and not stored next to heat source or in a confined space Yes Comments: No smoking sign posted on front exterior door Yes Comments: Does not use oil based products Yes Comments: --- Assessment Results (Check Yes or No for above assessment): Pt./Family/others educated on fire risks related to use of home Oxygen, i.e. oxygen source too close to heat/open flames, tanks stored improperly. Educated on fire risks to other residents and/or neighbors related to unsafe use of home oxygen. Pt./family/other verbalized understanding of education provided. No Deficiencies noted FALLS NO INFECTIONS NO ER/HOSPITALIZATIONS NO Teaching/goals: HAS ONGOING COMPLEX MEDICAL NEEDS. BENEFITS FROM [facility]GOING [facility] INTERDISCIPLINARY MGT. AND MEDICAL OVERSIGHT. AND CAREGIVER ARE INCLUDED IN DECISION MAKING. EDUCATION PROVIDED REGARDING MEDICATIONS, DISEASE MGT. WILL BE FREE FROM FALLS, INFECTIONS AND HOSPITALIZATIONS IN THE NEXT 30 DAYS. Patient verbalizes understanding to above and will call with any concerns or changes in condition. For emergent care call 911. Plan for next visit: 4 WEEKS, ASSESSMENT, MED PREFILL. /esthela/ Adalgisa Mcnair RN HB network systems analyst Signed: 11/13/2024 18:19 ADALGISA MCNAIR [place] [facility]
--- OUTSIDE RECORDS SUMMARY | 2024-11-16 10:45 | XMS_ITS | Encounter Summary ---
Author Name [facility] [place] Address [address] [place] [id number] Care Team Providers Care Equine Internship Name Role Phone GILES FUENTES Primary Care [...] Relationship to Policy Mccullough CAREMARK PRESCRIPT ION GEKEO Sep 14, 2014 [id number] FANY LEMUS ON PATIENT CAREMARK PRESCRIPT ION SUSI ATKINSON Sep 14, 2014 [id number] FANY LEMUS ON PATIENT CAREMARK PRESCRIPT ION Sep 14, 2014 [id number] [phone] ALLAN,MYR ON PATIENT GEHA (SECONDARY ) PREFERRED PROVIDER ORGANIZAT ION (PPO) HIGH OPTIO N MCR A&B Sep 14, 2005 [id number] ALLAN,MYR ON PATIENT GEHA (SECONDARY ) PREFERRED PROVIDER ORGANIZAT ION (PPO) GEHA CONNE CTION DENT Sep 14, 2005 [id number] ALLAN,MYR ON PATIENT GEHA FEHB PREFERRED PROVIDER ORGANIZAT ION (PPO) SUSI AL GOV Sep 14, 2005 [id number] [id number] ALLAN,MYR ON PATIENT GEHA FEHB PREFERRED PROVIDER ORGANIZAT ION (PPO) SUSI AL* Sep 14, 1989 [id number] ALTH [id number] ALLAN,MYR ON PATIENT GEHA-BEHAV [facility] GEHA HIGH OPTIO N Sep 14, 2021 [id number] ALLAN,MYR ON PATIENT MEDICARE (WNR) MEDICARE (M) PART A May 15, 2000 PART A [id number] ALLAN,MYR ON PATIENT MEDICARE (WNR) MEDICARE (M) PART B May 15, 2000 PART B [id number] ALLAN,MYR ON PATIENT MEDICARE (WNR) MEDICARE (M) PART B May 15, 2000 PART B [id number] ALLAN,MYR ON PATIENT MEDICARE (WNR) MEDICARE (M) PART A May 15, 2000 PART A [id number] ALLAN,MYR ON PATIENT MEDICARE (WNR) MEDICARE (M) PART A May 15, 2000 PART A [id number] ALLAN,MYR ON PATIENT MEDICARE (WNR) MEDICARE (M) PART B May 15, 2000 PART B [id number] ALLAN,MYR ON PATIENT MEDICARE (WNR) MEDICARE (M) PART A May 15, 2000 PART A [id number] FANY LEMUS ON PATIENT MEDICARE (WNR) MEDICARE (M) PART B May 15, 2000 PART B [id number] ALLAN,FANY ON PATIENT Selected Encounter This section includes the information on record at [place] for the Encounter. 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 Date/Time Primary/Secondary Diagnosis Diagnosis Name Provider Source Jun 22, 2024 05:01 PM PRIMARY Other nursing home (current) drug therapy [facility] Plan of Treatment: Future Appointments (+ 6 months) and Future Tests (+/- 45 days) The Plan of Treatment section includes future care activities for the patient from all [place] treatmentfacilities. This section includes future appointments and future orders which are active, pending or scheduled. Future Appointments This section includes appointments that were scheduled to occur 6 months from the date of the Encounter, up to a maximum of 20 appointments. The data comes from all [place] treatment facilities. Appointment Date/Time Appointment Type Appointme nt Facility Name Sep 26, 2024 10:00 AM AMBULATORY - REHAB MEDICIN E [facility] Oct 21, 2024 11:30 AM AMBULATORY - MEDICINE [facility] Social History: Smoking Status (Most current) and Tobacco Use (All prior to encounter date) This section includes the most current, and the historical, smoking and tobacco- related health factors from the [place] facility where the Encounter took place. Current Smoking Status This section includes the most current smoking, or tobacco-related health factor, from the [place] facility where the Encounter took place. Date/Time Current Smoking Status Comment Facil ity Sep 02, 2023 05:30 PM VA-TOBACCO FORMER USER [facility] Tobacco Use History This section includes a history of the smoking, or tobacco-related health factors, that were collected on or before the date of the Encounter. The data comes from the [place] facility where the Encounter took place. Date/Time Smoking Status/Tobacco Use Comment F acility Sep 02, 2023 05:30 PM VA-TOBACCO QUIT 15 YRS OR MORE [facility] Apr 24, 2022 01:00 PM VA-TOBACCO FORMER USER [facility] Apr 24, 2022 01:00 PM VA-TOBACCO QUIT 15 YRS OR MORE [facility] [facility] Dec 05, 2021 02:00 PM VA-TOBACCO USE DEC LINED TO ANSWER [facility] Nov 24, 2021 04:05 PM VA-TOBACCO USE DEC LINED TO ANSWER [facility] Sep 20, 2020 08:40 AM VA-TOBACCO NEVER USED [facility] Advance Directives: All historical and current Section Date Range: From patient's date of to the date document was created. This section includes ALL of a patient's completed or amended [place] Advance and Rescinded Directives. The entries below indicate that a directive exists for the patient, but an actual copy is not included with this document. The data comes from all [place] facilities. Date Advance Directives Provider Source Nov 11, 2016 ADVANCE DIRECTIVE ELROY CHÁVEZ [facility] Jul 08, 2006 ADVANCE DIRECTIVE [facility] Encounter Notes: All associated encounter notes This section contains the clinical notes associated to the Encounter. Date/Time Encounter Note(s) Provider Source Jun 10, 2024 08:48 AM ADDENDUM: LOCAL TITLE: Addendum STANDARD TITLE: ADDENDUM DATE OF NOTE: JUN 10, 2024@08:48:10 ENTRY DATE: JUN 10, 2024@08:48:11 AUTHOR: GILES FUENTES COSIGNER: URGENCY: STATUS: COMPLETED Please confirm that he is not using both formulations of timolol as this could contribute to his new onset bradycardia. Thanks! /esthela/ GILES FUENTES [facility] NURSE PRACTITIONER Signed: 06/10/2024 08:48 Receipt Acknowledged By: 06/10/2024 09:03 /esthela/ Adalgisa Pina RN [facility] test center administrator --- Original Document --- 06/07/24 [facility] PHARMAC[facility] MEDICATION REVIEW: Leonel Lemus is an 89 year-old WHITE MALE. 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, hx of hiatal hernia, hx of colonic polyps Alcohol (+): 1-2 drinks monthly or less Tobacco (-): quit over 15 years ago Allergies/ADR: SULFA DRUGS (nausea, vomiting) Active Outpatient Medications Status 1) ACETAMINOPHEN 500MG TAB TAKE TWO TABLETS BY MOUTH ACTIVE THREE TIMES DAILY NEEDED FOR PAIN 2) AMLODIPINE BESYLATE 10MG TAB TAKE ONE TABLET BY MOUTH ACTIVE ONCE DAILY FOR BLOOD PRESSURE/HEART, DO NOT TAKE WITH GRAPEFRUIT JUICE 3) ASPIRIN 81MG EC TAB TAKE ONE TABLET BY MOUTH ONCE ACTIVE DAILY TO PREVENT STROKE/HEART ATTACK 4) ATORVASTATIN CALCIUM 80MG TAB TAKE ONE TABLET BY ACTIVE MOUTH ONCE DAILY FOR CHOLESTEROL 5) BRIMONIDINE 0.2%/BRINZOLAMID 1% OPH SUSP INSTILL 1 ACTIVE DROP INTO EACH EYE TWICE DAILY 6) CARVEDILOL 3.125MG TAB TAKE ONE TABLET BY MOUTH TWICE ACTIVE DAILY FOR HIGH BLOOD PRESSURE 7) CHOLECALCIF 25MCG (D3-1,000UNIT) TAB TAKE ONE TABLET ACTIVE BY MOUTH ONCE DAILY FOR VITAMIN SUPPLEMENTATION 8) DOCUSATE NA 100MG CAP TAKE ONE CAPSULE BY MOUTH TWICE ACTIVE DAILY NEEDED TO SOFTEN STOOL 9) EPLERENONE 25MG TAB TAKE ONE TABLET BY MOUTH ONCE ACTIVE DAILY FOR HIGH BLOOD PRESSURE 10) HYDROPHILIC (EQV AQUAPHOR) TOP OINT APPLY LIBERAL ACTIVE AMOUNT TOPICALLY ONCE DAILY NEEDED FOR SKIN PROTECTION * NEW 11) KETOCONAZOLE 2% SHAMPOO SHAMPOO SMALL AMOUNT ACTIVE TOPICALLY ONCE DAILY 12) LATANOPROST 0.005% OPH SOLN INSTILL 1 DROP INTO EACH ACTIVE EYE AT BEDTIME 13) LOSARTAN 100MG TAB TAKE ONE TABLET BY MOUTH ONCE ACTIVE DAILY FOR BLOOD PRESSURE/HEART 14) MULTIVIT/OPHTH AREDS2/LUTE/ZEAX CAP/TAB TAKE 1 ACTIVE (S) CAPSULE BY MOUTH TWICE DAILY IN THE MORNING AND EVENING, WITH FOOD 15) PRIMIDONE 50MG TAB TAKE ONE TABLET BY MOUTH THREE ACTIVE TIMES A DAY 16) TIMOLOL MALEATE 0.5% OPH GEL APPLY 1 DROP INTO EACH ACTIVE EYE TWICE DAILY 17) TIMOLOL MALEATE 0.5% OPH SOLN INSTILL 1 DROP INTO ACTIVE EACH EYE TWICE DAILY 18) TORSEMIDE 20MG TAB TAKE ONE TABLET BY MOUTH ONCE ACTIVE DAILY Active Non-VA Medications Status 1) Non-VA FLUTICASONE/UMECLID/VILANT (TRELEGY 200) ACTIVE INHL,ORAL BY MOUTH 2) Non-VA OXYGEN MISCELLANEOUS 2 LITERS VIA NC AT NIGHT ACTIVE DIRECTED NEEDED THE ABOVE MEDICATIONS WERE REVIEWED FOR: ADR, potential incompatibilities, compliance, duplication of therapy, and indications on problem list Other Rx/OTC/Herbals: none High Alert Meds: none Look Alike/Sound Alike Meds: acetaminophen, atorvastatin, carvedilol Duplication of Therapy: timolol maleate (eye drops and eye gel) Excessive Duration: none Vitals: ======= Ht: 70 in [177.8 cm] (08/23/2019 10:24) Wt: 201 lb [91.17 kg] (06/01/2024 16:09) BMI: 28.9 BP: 118/60 (06/01/2024 16:09) HR: 54 (06/01/2024 16:09) Pain: 0 (06/01/2024 16:09) Labs: ===== SERUM Na K BUN SCr 12/24/23 141 4.7 30 H 0.84 08/31/23 138 4.2 27 H 0.81 eGFR (CKD-EPI 2020): 83 (12/24/23) CrCl (C&G, SCr 0.84, adj BW): ~68 mL/min M mg/dL (12/24/23) = SERUM AST ALT - 12/24/23 25 34 = BLOOD WBC Hgb Hct MCV Plt - 08/31/23 8.07 13.6 41.8 94.8 221 A1c: 5.7 % (12/24/23) 5.8 % (08/31/23) TSH: 1.4 uIU/mL (12/24/23) Vit B12: 443 pg/mL (12/24/23) = SERUM LDL HDL TG Tot Chol - 12/24/23 56 47 84 120 = Vit D: 41 ng/mL (08/31/23) Ca: 9 mg/dL (08/31/23) Alb: 3.6 g/dL (12/24/23) ASSESSMENT: In the last 90 days: - No falls/hospitalizations/inf ections noted - Per addendum to the 04/04/24 [facility] Pharm[facility] Med Review note, is taking torsemide as directed. Alogliptin discontinued given A1c well within individualized goal. underwent PET scan per Urology recommendations given elevated PSA showing localized prostate cancer. Plan to monitor area with no chemo/radiation at this time. - underwent circumcision procedure on 05/30/24 with recommendations to hold aspirin for 7 days prior to procedure. Med organizer was adjusted. INTERVENTIONS/SUGGESTIONS: 1. Patient's medications were reviewed for significant drug interactions. * primidone/acetaminophen: primidone may increase the metabolism of acetaminophen, specifically the formation of the NAPQI metabolite may be increased; monitor LFTs and avoid overuse of acetaminophen * primidone/amlodipine: concurrent use may reduce the serum concentration of amlodipine * primidone/atorvastatin: concurrent use may decrease the serum concentration of atorvastatin * primidone/eplerenone: concurrent use may decrease serum concentration of eplerenone * eplerenone/losartan: concurrent use may increase risk of hypokalemia; last K WNL * amlodipine/torsemide/epler enone/losartan/carvedilol: concurrent use may increase risk of hypotension; continue to monitor vitals at future visits * amlodipine/atorvastatin: concurrent use may reduce the serum concentration of amlodipine 2. Patient has an estimated creatinine clearance of ~68 mL/min. LFTs WNL. Current medications are dosed appropriately for the patient's renal and hepatic function. 3. Medications reviewed to determine if regimen could contribute to falls. Several agents on 's active medication list may increase fall risk including amlodipine, atorvastatin, carvedilol, eplerenone, losartan, primidone, and torsemide. Also, aspirin use may increase bleeding risk should a fall occur. Last documented fall occurred on ~01/06/24 in the parking lot of a restaurant while using his white cane; he missed the curb falling forward onto his knees resulting in soreness of bilateral knees. To reduce the risk for falls, educate pt re: safe postural transitions and signs/sx of orthostatic hypotension. Also, monitor for dizziness, drowsiness, ataxia, hypotension, bradycardia, dehydration, and muscle pain/weakness given current medication regimen. 4. All medical conditions have appropriate medication treatment. * HTN - on max dose CCB, max dose ARB, aldosterone antagonist, beta cassia, and loop diuretic; BPs well-controlled with HRs mostly in 80s-90s with last HR lower at 54; continue to monitor for bradycardia * COPD - on non-VA ICS/LAMA/LABA, may benefit from PRN JUANCARLOS, followed by non-VA Pulmonology, uses oxygen at night only * DM - alogliptin recently stopped given last A1c 5.7%; metformin previously discontinued given A1c well WNL in the setting of advanced age, comorbidities, and fall risk, last Podiatry f/u in May 2024, last Optometry f/u 03/24/24 - no retinopathy or macular edema * GERD without esophagitis - pantoprazole recently discontinued as was no longer taking; no recent related complaints 5. All medications have an appropriate indication and supporting clinical symptoms. * AREDS 2 - hx of wet ARMD, condition is stable and was recommended to continue vitamin at this time with reassessment at next Optometry f/u * atorvastatin - on high-intensity dosing, hx of HLD and ASCVD with last LDL of 56 and LFTs WNL * primidone - hx of tremor 6. Adherence Concerns: - [facility] RN pre-fills meds * latanoprost - last filled 04/14/24, 11/27/23 (~90-day supply) 7. Health Maintenance: > Immunizations: is due for the following immunizations per chart review and CDC recommendations: * COVID-19 - pt refusal in Apr 2024 * PCV20 (shared decision making) * received PCV13 on 08/13/17 * received PPSV23 in November 2003 > Tobacco/EtOH: * Please continue to periodically reassess alcohol use and encourage minimal intake given older age and history of falls. > Bladder/Bowel: * Inquire about incontinence and severity biannually. > Bone Health: * last vit D WNL on supplementation, hx of deficiency in Dec 2021 * last Ca from Aug 2023 WNL, not on supplementation > Aspirin: * on low-dose aspirin, hx of ASCVD 8. Patient with zero refills on: carvedilol, hydrophilic ointment, cholecalciferol 9. Continue to review quarterly. Recommendations: For [facility] IDT: - recently had 1 lower HR of 54 bpm and was started on carvedilol in February 2024. Please continue to monitor vitals during future visits. May have to consider discontinuation of beta cassia if becomes consistently bradycardic. For Optometry: - [place] has active Rxs for both timolol eye drops and timolol eye gel to be administered BID. Please clarify whether he should discontinue 1 of these agents moving forward. The details of this review were shared with the IDT in order to assist in creating a care plan designed to provide services focused on the health and well being of the patient. Time Spent: 45 min /es/ JOSE DE JESUS [facility]TG[facility] Clinical Pharmacist Practitioner Signed: 06/07/2024 16:34 Receipt Acknowledged By: 06/10/2024 08:48 /es/ GILES FUENTES [facility] NURSE PRACTITIONER 06/08/2024 12:21 /es/ Adalgisa Pian RN [facility] test center administrator 06/07/2024 ADDENDUM STATUS: COMPLETED For Optometry: - [place] has active Rxs for both timolol eye drops and timolol eye gel to be administered BID. Please clarify whether he should discontinue 1 of these agents moving forward. Of note, appears that the drops were recommended by a non-VA provider. /raleigh MONTGOMERY [facility] Clinical Pharmacist Practitioner Signed: 06/07/2024 16:38 Receipt Acknowledged By: 06/08/2024 06:50 /raleigh Lima OD CHIEF OF OPTOMETRY 06/08/2024 ADDENDUM STATUS: COMPLETED Timolol .5% GFS 1 drop twice a day each eye d/d now. /raleigh Lima OD CHIEF OF OPTOMETRY Signed: 06/08/2024 06:51 GINAGILESBRITTANY WALTER [place] [facility] Jun 07, 2024 04:35 PM ADDENDUM: LOCAL TITLE: Addendum STANDARD TITLE: ADDENDUM DATE OF NOTE: JUN 07, 2024@16:35:10 ENTRY DATE: JUN 07, 2024@16:35:11 AUTHOR: JOSE DE JESUS [facility] EXP COSIGNER: URGENCY: STATUS: COMPLETED For Optometry: - [place] has active Rxs for both timolol eye drops and timolol eye gel to be administered BID. Please clarify whether he should discontinue 1 of these agents moving forward. Of note, appears that the drops were recommended by a non-VA provider. /raleigh MONTGOMERY [facility] Clinical Pharmacist Practitioner Signed: 06/07/2024 16:38 Receipt Acknowledged By: 06/08/2024 06:50 /raleigh Lima OD CHIEF OF OPTOMETRY --- Original Document --- 06/07/24 [facility] PH[facility] MEDICATION REVIEW: Leonel Lemus is an 89 year-old WHITE MALE. 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, hx of hiatal hernia, hx of colonic polyps Alcohol (+): 1-2 drinks monthly or less Tobacco (-): quit over 15 years ago Allergies/ADR: SULFA DRUGS (nausea, vomiting) Active Outpatient Medications Status 1) ACETAMINOPHEN 500MG TAB TAKE TWO TABLETS BY MOUTH ACTIVE THREE TIMES DAILY NEEDED FOR PAIN 2) AMLODIPINE BESYLATE 10MG TAB TAKE ONE TABLET BY MOUTH ACTIVE ONCE DAILY FOR BLOOD PRESSURE/HEART, DO NOT TAKE WITH GRAPEFRUIT JUICE 3) ASPIRIN 81MG EC TAB TAKE ONE TABLET BY MOUTH ONCE ACTIVE DAILY TO PREVENT STROKE/HEART ATTACK 4) ATORVASTATIN CALCIUM 80MG TAB TAKE ONE TABLET BY ACTIVE MOUTH ONCE DAILY FOR CHOLESTEROL 5) BRIMONIDINE 0.2%/BRINZOLAMID 1% OPH SUSP INSTILL 1 ACTIVE DROP INTO EACH EYE TWICE DAILY 6) CARVEDILOL 3.125MG TAB TAKE ONE TABLET BY MOUTH TWICE ACTIVE DAILY FOR HIGH BLOOD PRESSURE 7) CHOLECALCIF 25MCG (D3-1,000UNIT) TAB TAKE ONE TABLET ACTIVE BY MOUTH ONCE DAILY FOR VITAMIN SUPPLEMENTATION 8) DOCUSATE NA 100MG CAP TAKE ONE CAPSULE BY MOUTH TWICE ACTIVE DAILY NEEDED TO SOFTEN STOOL 9) EPLERENONE 25MG TAB TAKE ONE TABLET BY MOUTH ONCE ACTIVE DAILY FOR HIGH BLOOD PRESSURE 10) HYDROPHILIC (EQV AQUAPHOR) TOP OINT APPLY LIBERAL ACTIVE AMOUNT TOPICALLY ONCE DAILY NEEDED FOR SKIN PROTECTION * NEW 11) KETOCONAZOLE 2% SHAMPOO SHAMPOO SMALL AMOUNT ACTIVE TOPICALLY ONCE DAILY 12) LATANOPROST 0.005% OPH SOLN INSTILL 1 DROP INTO EACH ACTIVE EYE AT BEDTIME 13) LOSARTAN 100MG TAB TAKE ONE TABLET BY MOUTH ONCE ACTIVE DAILY FOR BLOOD PRESSURE/HEART 14) MULTIVIT/OPHTH AREDS2/LUTE/ZEAX CAP/TAB TAKE 1 ACTIVE (S) CAPSULE BY MOUTH TWICE DAILY IN THE MORNING AND EVENING, WITH FOOD 15) PRIMIDONE 50MG TAB TAKE ONE TABLET BY MOUTH THREE ACTIVE TIMES A DAY 16) TIMOLOL MALEATE 0.5% OPH GEL APPLY 1 DROP INTO EACH ACTIVE EYE TWICE DAILY 17) TIMOLOL MALEATE 0.5% OPH SOLN INSTILL 1 DROP INTO ACTIVE EACH EYE TWICE DAILY 18) TORSEMIDE 20MG TAB TAKE ONE TABLET BY MOUTH ONCE ACTIVE DAILY Active Non-VA Medications Status 1) Non-VA FLUTICASONE/UMECLID/VILANT (TRELEGY 200) ACTIVE INHL,ORAL BY MOUTH 2) Non-VA OXYGEN MISCELLANEOUS 2 LITERS VIA NC AT NIGHT ACTIVE DIRECTED NEEDED THE ABOVE MEDICATIONS WERE REVIEWED FOR: ADR, potential incompatibilities, compliance, duplication of therapy, and indications on problem list Other Rx/OTC/Herbals: none High Alert Meds: none Look Alike/Sound Alike Meds: acetaminophen, atorvastatin, carvedilol Duplication of Therapy: timolol maleate (eye drops and eye gel) Excessive Duration: none Vitals: ======= Ht: 70 in [177.8 cm] (08/23/2019 10:24) Wt: 201 lb [91.17 kg] (06/01/2024 16:09) BMI: 28.9 BP: 118/60 (06/01/2024 16:09) HR: 54 (06/01/2024 16:09) Pain: 0 (06/01/2024 16:09) Labs: ===== SERUM Na K BUN SCr 12/24/23 141 4.7 30 H 0.84 08/31/23 138 4.2 27 H 0.81 eGFR (CKD-EPI 2020): 83 (12/24/23) CrCl (C&G, SCr 0.84, adj BW): ~68 mL/min M mg/dL (12/24/23) = SERUM AST ALT - 12/24/23 25 34 = BLOOD WBC Hgb Hct MCV Plt - 08/31/23 8.07 13.6 41.8 94.8 221 A1c: 5.7 % (12/24/23) 5.8 % (08/31/23) TSH: 1.4 uIU/mL (12/24/23) Vit B12: 443 pg/mL (12/24/23) = SERUM LDL HDL TG Tot Chol - 12/24/23 56 47 84 120 = Vit D: 41 ng/mL (08/31/23) Ca: 9 mg/dL (08/31/23) Alb: 3.6 g/dL (12/24/23) ASSESSMENT: In the last 90 days: - No falls/hospitalizations/inf ections noted - Per addendum to the 04/04/24 [facility] Pharmacy Med Review note, andrés is taking torsemide as directed. Alogliptin discontinued given A1c well within individualized goal. underwent PET scan per Urology recommendations given elevated PSA showing localized prostate cancer. Plan to monitor area with no chemo/radiation at this time. - [place] underwent circumcision procedure on 05/30/24 with recommendations to hold aspirin for 7 days prior to procedure. Med organizer was adjusted. INTERVENTIONS/SUGGESTIONS: 1. Patient's medications were reviewed for significant drug interactions. * primidone/acetaminophen: primidone may increase the metabolism of acetaminophen, specifically the formation of the NAPQI metabolite may be increased; monitor LFTs and avoid overuse of acetaminophen * primidone/amlodipine: concurrent use may reduce the serum concentration of amlodipine * primidone/atorvastatin: concurrent use may decrease the serum concentration of atorvastatin * primidone/eplerenone: concurrent use may decrease serum concentration of eplerenone * eplerenone/losartan: concurrent use may increase risk of hypokalemia; last K WNL * amlodipine/torsemide/epler enone/losartan/carvedilol: concurrent use may increase risk of hypotension; continue to monitor vitals at future visits * amlodipine/atorvastatin: concurrent use may reduce the serum concentration of amlodipine 2. Patient has an estimated creatinine clearance of ~68 mL/min. LFTs WNL. Current medications are dosed appropriately for the patient's renal and hepatic function. 3. Medications reviewed to determine if regimen could contribute to falls. Several agents on 's active medication list may increase fall risk including amlodipine, atorvastatin, carvedilol, eplerenone, losartan, primidone, and torsemide. Also, aspirin use may increase bleeding risk should a fall occur. Last documented fall occurred on ~01/06/24 in the parking lot of a restaurant while using his white cane; he missed the curb falling forward onto his knees resulting in soreness of bilateral knees. To reduce the risk for falls, educate pt re: safe postural transitions and signs/sx of orthostatic hypotension. Also, monitor for dizziness, drowsiness, ataxia, hypotension, bradycardia, dehydration, and muscle pain/weakness given current medication regimen. 4. All medical conditions have appropriate medication treatment. * HTN - on max dose CCB, max dose ARB, aldosterone antagonist, beta cassia, and loop diuretic; BPs well-controlled with HRs mostly in 80s-90s with last HR lower at 54; continue to monitor for bradycardia * COPD - on non-VA ICS/LAMA/LABA, may benefit from PRN JUANCARLOS, followed by non-VA Pulmonology, uses oxygen at night only * DM - alogliptin recently stopped given last A1c 5.7%; metformin previously discontinued given A1c well WNL in the setting of advanced age, comorbidities, and fall risk, last Podiatry f/u in May 2024, last Optometry f/u 03/24/24 - no retinopathy or macular edema * GERD without esophagitis - pantoprazole recently discontinued as was no longer taking; no recent related complaints 5. All medications have an appropriate indication and supporting clinical symptoms. * AREDS 2 - hx of wet ARMD, condition is stable and was recommended to continue vitamin at this time with reassessment at next Optometry f/u * atorvastatin - on high-intensity dosing, hx of HLD and ASCVD with last LDL of 56 and LFTs WNL * primidone - hx of tremor 6. Adherence Concerns: - [facility] RN pre-fills meds * latanoprost - last filled 04/14/24, 11/27/23 (~90-day supply) 7. Health Maintenance: > Immunizations: [place] is due for the following immunizations per chart review and CDC recommendations: * COVID-19 - pt refusal in Apr 2024 * PCV20 (shared decision making) * received PCV13 on 08/13/17 * received PPSV23 in November 2003 > Tobacco/EtOH: * Please continue to periodically reassess alcohol use and encourage minimal intake given older age and history of falls. > Bladder/Bowel: * Inquire about incontinence and severity biannually. > Bone Health: * last vit D WNL on supplementation, hx of deficiency in Dec 2021 * last Ca from Aug 2023 WNL, not on supplementation > Aspirin: * on low-dose aspirin, hx of ASCVD 8. Patient with zero refills on: carvedilol, hydrophilic ointment, cholecalciferol 9. Continue to review quarterly. Recommendations: For [facility] IDT: - Andrés recently had 1 lower HR of 54 bpm and was started on carvedilol in February 2024. Please continue to monitor vitals during future visits. May have to consider discontinuation of beta cassia if becomes consistently bradycardic. For Optometry: - [place] has active Rxs for both timolol eye drops and timolol eye gel to be administered BID. Please clarify whether he should discontinue 1 of these agents moving forward. The details of this review were shared with the IDT in order to assist in creating a care plan designed to provide services focused on the health and well being of the patient. Time Spent: 45 min /esthela/ JOSE DE JESUS MONTGOMERY [facility] Clinical Pharmacist Practitioner Signed: 06/07/2024 16:34 Receipt Acknowledged By: * AWAITING SIGNATURE * GILES FUENTES * AWAITING SIGNATURE * ADALGISA PINA SARAH J [facility] Jun 07, 2024 03:27 PM [facility] MEDICATION MGT NOTE: LOCAL TITLE: [facility] PHARMACY MEDICATION REVIEW STANDARD TITLE: [facility] MEDICATION MGT NOTE DATE OF NOTE: JUN 07, 2024@15:27 ENTRY DATE: JUN 07, 2024@15:28:01 AUTHOR: JOSE DE JESUS MONTGOMERY EXP COSIGNER: URGENCY: STATUS: COMPLETED [facility] PH[facility] MEDICATION REVIEW Has ADDENDA Leonel Lemus is an 89 year-old WHITE MALE. 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, hx of hiatal hernia, hx of colonic polyps Alcohol (+): 1-2 drinks monthly or less Tobacco (-): quit over 15 years ago Allergies/ADR: SULFA DRUGS (nausea, vomiting) Active Outpatient Medications Status 1) ACETAMINOPHEN 500MG TAB TAKE TWO TABLETS BY MOUTH ACTIVE THREE TIMES DAILY NEEDED FOR PAIN 2) AMLODIPINE BESYLATE 10MG TAB TAKE ONE TABLET BY MOUTH ACTIVE ONCE DAILY FOR BLOOD PRESSURE/HEART, DO NOT TAKE WITH GRAPEFRUIT JUICE 3) ASPIRIN 81MG EC TAB TAKE ONE TABLET BY MOUTH ONCE ACTIVE DAILY TO PREVENT STROKE/HEART ATTACK 4) ATORVASTATIN CALCIUM 80MG TAB TAKE ONE TABLET BY ACTIVE MOUTH ONCE DAILY FOR CHOLESTEROL 5) BRIMONIDINE 0.2%/BRINZOLAMID 1% OPH SUSP INSTILL 1 ACTIVE DROP INTO EACH EYE TWICE DAILY 6) CARVEDILOL 3.125MG TAB TAKE ONE TABLET BY MOUTH TWICE ACTIVE DAILY FOR HIGH BLOOD PRESSURE 7) CHOLECALCIF 25MCG (D3-1,000UNIT) TAB TAKE ONE TABLET ACTIVE BY MOUTH ONCE DAILY FOR VITAMIN SUPPLEMENTATION 8) DOCUSATE NA 100MG CAP TAKE ONE CAPSULE BY MOUTH TWICE ACTIVE DAILY NEEDED TO SOFTEN STOOL 9) EPLERENONE 25MG TAB TAKE ONE TABLET BY MOUTH ONCE ACTIVE DAILY FOR HIGH BLOOD PRESSURE 10) HYDROPHILIC (EQV AQUAPHOR) TOP OINT APPLY LIBERAL ACTIVE AMOUNT TOPICALLY ONCE DAILY NEEDED FOR SKIN PROTECTION * NEW 11) KETOCONAZOLE 2% SHAMPOO SHAMPOO SMALL AMOUNT ACTIVE TOPICALLY ONCE DAILY 12) LATANOPROST 0.005% OPH SOLN INSTILL 1 DROP INTO EACH ACTIVE EYE AT BEDTIME 13) LOSARTAN 100MG TAB TAKE ONE TABLET BY MOUTH ONCE ACTIVE DAILY FOR BLOOD PRESSURE/HEART 14) MULTIVIT/OPHTH AREDS2/LUTE/ZEAX CAP/TAB TAKE 1 ACTIVE (S) CAPSULE BY MOUTH TWICE DAILY IN THE MORNING AND EVENING, WITH FOOD 15) PRIMIDONE 50MG TAB TAKE ONE TABLET BY MOUTH THREE ACTIVE TIMES A DAY 16) TIMOLOL MALEATE 0.5% OPH GEL APPLY 1 DROP INTO EACH ACTIVE EYE TWICE DAILY 17) TIMOLOL MALEATE 0.5% OPH SOLN INSTILL 1 DROP INTO ACTIVE EACH EYE TWICE DAILY 18) TORSEMIDE 20MG TAB TAKE ONE TABLET BY MOUTH ONCE ACTIVE DAILY Active Non-VA Medications Status 1) Non-VA FLUTICASONE/UMECLID/VILANT (TRELEGY 200) ACTIVE INHL,ORAL BY MOUTH 2) Non-VA OXYGEN MISCELLANEOUS 2 LITERS VIA NC AT NIGHT ACTIVE DIRECTED NEEDED THE ABOVE MEDICATIONS WERE REVIEWED FOR: ADR, potential incompatibilities, compliance, duplication of therapy, and indications on problem list Other Rx/OTC/Herbals: none High Alert Meds: none Look Alike/Sound Alike Meds: acetaminophen, atorvastatin, carvedilol Duplication of Therapy: timolol maleate (eye drops and eye gel) Excessive Duration: none Vitals: ======= Ht: 70 in [177.8 cm] (08/23/2019 10:24) Wt: 201 lb [91.17 kg] (06/01/2024 16:09) BMI: 28.9 BP: 118/60 (06/01/2024 16:09) HR: 54 (06/01/2024 16:09) Pain: 0 (06/01/2024 16:09) Labs: ===== SERUM Na K BUN SCr 12/24/23 141 4.7 30 H 0.84 08/31/23 138 4.2 27 H 0.81 eGFR (CKD-EPI 2020): 83 (12/24/23) CrCl (C&G, SCr 0.84, adj BW): ~68 mL/min M mg/dL (12/24/23) = SERUM AST ALT - 12/24/23 25 34 = BLOOD WBC Hgb Hct MCV Plt - 08/31/23 8.07 13.6 41.8 94.8 221 A1c: 5.7 % (12/24/23) 5.8 % (08/31/23) TSH: 1.4 uIU/mL (12/24/23) Vit B12: 443 pg/mL (12/24/23) = SERUM LDL HDL TG Tot Chol - 12/24/23 56 47 84 120 = Vit D: 41 ng/mL (08/31/23) Ca: 9 mg/dL (08/31/23) Alb: 3.6 g/dL (12/24/23) ASSESSMENT: In the last 90 days: - No falls/hospitalizations/inf ections noted - Per addendum to the 04/04/24 [facility] Pharmacy Med Review note, is taking torsemide as directed. Alogliptin discontinued given A1c well within individualized goal. underwent PET scan per Urology recommendations given elevated PSA showing localized prostate cancer. Plan to monitor area with no chemo/radiation at this time. - [place] underwent circumcision procedure on 05/30/24 with recommendations to hold aspirin for 7 days prior to procedure. Med organizer was adjusted. INTERVENTIONS/SUGGESTIONS: 1. Patient's medications were reviewed for significant drug interactions. * primidone/acetaminophen: primidone may increase the metabolism of acetaminophen, specifically the formation of the NAPQI metabolite may be increased; monitor LFTs and avoid overuse of acetaminophen * primidone/amlodipine: concurrent use may reduce the serum concentration of amlodipine * primidone/atorvastatin: concurrent use may decrease the serum concentration of atorvastatin * primidone/eplerenone: concurrent use may decrease serum concentration of eplerenone * eplerenone/losartan: concurrent use may increase risk of hypokalemia; last K WNL * amlodipine/torsemide/epler enone/losartan/carvedilol: concurrent use may increase risk of hypotension; continue to monitor vitals at future visits * amlodipine/atorvastatin: concurrent use may reduce the serum concentration of amlodipine 2. Patient has an estimated creatinine clearance of ~68 mL/min. LFTs WNL. Current medications are dosed appropriately for the patient's renal and hepatic function. 3. Medications reviewed to determine if regimen could contribute to falls. Several agents on 's active medication list may increase fall risk including amlodipine, atorvastatin, carvedilol, eplerenone, losartan, primidone, and torsemide. Also, aspirin use may increase bleeding risk should a fall occur. Last documented fall occurred on ~01/06/24 in the parking lot of a restaurant while using his white cane; he missed the curb falling forward onto his knees resulting in soreness of bilateral knees. To reduce the risk for falls, educate pt re: safe postural transitions and signs/sx of orthostatic hypotension. Also, monitor for dizziness, drowsiness, ataxia, hypotension, bradycardia, dehydration, and muscle pain/weakness given current medication regimen. 4. All medical conditions have appropriate medication treatment. * HTN - on max dose CCB, max dose ARB, aldosterone antagonist, beta cassia, and loop diuretic; BPs well-controlled with HRs mostly in 80s-90s with last HR lower at 54; continue to monitor for bradycardia * COPD - on non-VA ICS/LAMA/LABA, may benefit from PRN JUANCARLOS, followed by non-VA Pulmonology, uses oxygen at night only * DM - alogliptin recently stopped given last A1c 5.7%; metformin previously discontinued given A1c well WNL in the setting of advanced age, comorbidities, and fall risk, last Podiatry f/u in May 2024, last Optometry f/u 03/24/24 - no retinopathy or macular edema * GERD without esophagitis - pantoprazole recently discontinued as was no longer taking; no recent related complaints 5. All medications have an appropriate indication and supporting clinical symptoms. * AREDS 2 - hx of wet ARMD, condition is stable and was recommended to continue vitamin at this time with reassessment at next Optometry f/u * atorvastatin - on high-intensity dosing, hx of HLD and ASCVD with last LDL of 56 and LFTs WNL * primidone - hx of tremor 6. Adherence Concerns: - [facility] RN pre-fills meds * latanoprost - last filled 04/14/24, 11/27/23 (~90-day supply) 7. Health Maintenance: > Immunizations: [place] is due for the following immunizations per chart review and CDC recommendations: * COVID-19 - pt refusal in Apr 2024 * PCV20 (shared decision making) * received PCV13 on 08/13/17 * received PPSV23 in November 2003 > Tobacco/EtOH: * Please continue to periodically reassess alcohol use and encourage minimal intake given older age and history of falls. > Bladder/Bowel: * Inquire about incontinence and severity biannually. > Bone Health: * last vit D WNL on supplementation, hx of deficiency in Dec 2021 * last Ca from Aug 2023 WNL, not on supplementation > Aspirin: * on low-dose aspirin, hx of ASCVD 8. Patient with zero refills on: carvedilol, hydrophilic ointment, cholecalciferol 9. Continue to review quarterly. Recommendations: For [facility] IDT: - Andrés recently had 1 lower HR of 54 bpm and was started on carvedilol in February 2024. Please continue to monitor vitals during future visits. May have to consider discontinuation of beta cassia if becomes consistently bradycardic. For Optometry: - [place] has active Rxs for both timolol eye drops and timolol eye gel to be administered BID. Please clarify whether he should discontinue 1 of these agents moving forward. The details of this review were shared with the IDT in order to assist in creating a care plan designed to provide services focused on the health and well being of the patient. Time Spent: 45 min /raleigh MONTGOMERY [facility] Clinical Pharmacist Practitioner Signed: 06/07/2024 16:34 Receipt Acknowledged By: 06/10/2024 08:48 /esthela/ GILES FUENTES [facility] NURSE PRACTITIONER 06/08/2024 12:21 /esthela/ Adalgisa Pina RN [facility] test center administrator 06/07/2024 ADDENDUM STATUS: COMPLETED For Optometry: - [place] has active Rxs for both timolol eye drops and timolol eye gel to be administered BID. Please clarify whether he should discontinue 1 of these agents moving forward. Of note, appears that the drops were recommended by a non-VA provider. /raleigh MONTGOMERY [facility] Clinical Pharmacist Practitioner Signed: 06/07/2024 16:38 Receipt Acknowledged By: 06/08/2024 06:50 /esthela/ Raj Lima OD CHIEF OF OPTOMETRY 06/08/2024 ADDENDUM STATUS: COMPLETED Timolol .5% GFS 1 drop twice a day each eye d/d now. /raleigh Lima OD CHIEF OF OPTOMETRY Signed: 06/08/2024 06:51 06/10/2024 ADDENDUM STATUS: COMPLETED Please confirm that he is not using both formulations of timolol as this could contribute to his new onset bradycardia. Thanks! /raleigh FUENTES [facility] NURSE PRACTITIONER Signed: 06/10/2024 08:48 Receipt Acknowledged By: * AWAITING SIGNATURE * ADALGISA PINA SARAH [facility]
--- OUTSIDE RECORDS SUMMARY | 2024-11-16 10:45 | XMS_ITS | Encounter Summary ---
Author Name [facility] of [facility] ([place]) [facility] Address [address] [place] [address] Care Team Providers Care Mat Man Name Role Phone GILES FUENTES Primary Care [...] Relationship to Policy Mccullough CAREMARK PRESCRIPT ION SREEKANTH Sep 14, 2014 [id number] FANY LEMUS ON PATIENT CAREMARK PRESCRIPT ION SUSI ATKINSON Sep 14, 2014 [id number] [phone] FANY LEMUS ON PATIENT CAREMARK PRESCRIPT ION Sep 14, 2014 [id number] [phone] ALLAN,MYR ON PATIENT GEHA (SECONDARY ) PREFERRED PROVIDER ORGANIZAT ION (PPO) HIGH OPTIO N MCR A&B Sep 14, 2005 [id number] ALLAN,MYR ON PATIENT GEHA (SECONDARY ) PREFERRED PROVIDER ORGANIZAT ION (PPO) GEHA CONNE CTION DENT Sep 14, 2005 [id number] ALLAN,MYR ON PATIENT GEHA FEHB PREFERRED PROVIDER ORGANIZAT ION (PPO) SUSI AL GOV Sep 14, 2005 [id number] [id number] ALLAN,MYR ON PATIENT GEHA FEHB PREFERRED PROVIDER ORGANIZAT ION (PPO) SUSI AL* Sep 14, 1989 [id number] ALTH [id number] ALLAN,MYR ON PATIENT GEHA-BEHAV [facility] GEHA HIGH OPTIO N Sep 14, 2021 [id number] [phone] ALLAN,MYR ON PATIENT MEDICARE (WNR) MEDICARE (M) PART B May 15, 2000 PART B [id number] ALLAN,MYR ON PATIENT MEDICARE (WNR) MEDICARE (M) PART A May 15, 2000 PART A [id number] ALLAN,MYR ON PATIENT MEDICARE (WNR) MEDICARE (M) PART B May 15, 2000 PART B [id number] ALLAN,MYR ON PATIENT MEDICARE (WNR) MEDICARE (M) PART A May 15, 2000 PART A [id number] ALLAN,MYR ON PATIENT MEDICARE (WNR) MEDICARE (M) PART A May 15, 2000 PART A [id number] ALLAN,MYR ON PATIENT MEDICARE (WNR) MEDICARE (M) PART B May 15, 2000 PART B [id number] ALLAN,MYR ON PATIENT MEDICARE (WNR) MEDICARE (M) PART A May 15, 2000 PART A [id number] [phone] FANY LEMUS ON PATIENT MEDICARE (WNR) MEDICARE (M) PART B May 15, 2000 PART B [id number] FANY LEMUS ON PATIENT Selected Encounter This section includes the information on record at [place] for the Encounter. Date/Time Encounter Type Encounter Description Reason Provider Source Mar 31, 2024 11:00 AM OFFICE O/P EST HI 40 MIN LOW VISION CARE ICD-10-CM H54.8 Legal blindness, as defined in [place] ANGELIKA ANDRADE Verito Encounter Template Text not used by [place] Assessments - Encounter Diagnoses This section includes the primary and secondary diagnoses documented for the Encounter. Date/Time Primary/Secondary Diagnosis Diagnosis Name Provider Source Apr 30, 2024 08:50 AM PRIMARY Legal blindness, as defined in [place] ANGELIKA ANDRADE [facility] Apr 30, 2024 08:50 AM SECONDARY Combined forms of age-related cataract, bilateral AN[facility]EL[facility]A [facility]RADE [facility] Apr 30, 2024 08:50 AM SECONDARY Exudative age-rel mclr degn, bilateral, with inactive scar ANGELIKA ANDRADE [facility] Apr 30, 2024 08:50 AM SECONDARY Type 2 diabetes mellitus without complications AN[facility]ELIKA ANDRADE [facility] Plan of Treatment: Future Appointments (+ 6 months) and Future Tests (+/- 45 days) The Plan of Treatment section includes future care activities for the patient from all [place] treatmentfacilities. This section includes future appointments and future orders which are active, pending or scheduled. Future Appointments This section includes appointments that were scheduled to occur 6 months from the date of the Encounter, up to a maximum of 20 appointments. The data comes from all [place] treatment facilities. Appointment Date/Time Appointment Type Appointme nt Facility Name May 04, 2024 01:00 PM AMBULATORY - REHAB MEDICIN E [place] [facility] [place] [facility] Jun 03, 2024 11:30 AM AMBULATORY - MEDICINE [facility] Sep 26, 2024 10:00 AM [facility] [place] [facility] Social History: Smoking Status (Most current) and Tobacco Use (All prior to encounter date) This section includes the most current, and the historical, smoking and tobacco- related health factors from the [place] facility where the Encounter took place. Current Smoking Status This section includes the most current smoking, or tobacco-related health factor, from the [place] facility where the Encounter took place. Date/Time Current Smoking Status Comment Facil ity Sep 02, 2023 05:30 PM VA-TOBACCO [facility] Tobacco Use History This section includes a history of the smoking, or tobacco-related health factors, that were collected on or before the date of the Encounter. The data comes from the [place] facility where the Encounter took place. Date/Time Smoking Status/Tobacco Use Comment F acility Sep 02, 2023 05:30 PM VA-TOBACCO QUIT 15 YRS [facility] Apr 24, 2022 01:00 PM VA-TOBACCO FORMER USER [facility] [place] [facility] Apr 24, 2022 01:00 PM VA-TOBACCO QUIT 15 YRS OR MORE [facility] Dec 05, 2021 02:00 PM VA-TOBACCO USE DEC LINED TO ANSWER [facility] [place] [facility] Nov 24, 2021 04:05 PM VA-TOBACCO USE DEC [facility] Sep 20, 2020 08:40 AM VA-TOBACCO NEVER USED [facility] Advance Directives: All historical and current Section Date Range: From patient's date of to the date document was created. This section includes ALL of a patient's completed or amended [place] Advance and Rescinded Directives. The entries below indicate that a directive exists for the patient, but an actual copy is not included with this document. The data comes from all [place] facilities. Date Advance Directives Provider Source Nov 11, 2016 ADVANCE DIRECTIVE ELROY CHÁVEZ [facility] Jul 08, 2006 ADVANCE DIRECTIVE CHAPARRO DICK [facility] Encounter Notes: All associated encounter notes This section contains the clinical notes associated to the Encounter. Date/Time Encounter Note(s) Provider Source Mar 31, 2024 07:47 AM OPTOMETRY DIAGNOST IC STUDY NOTE: LOCAL TITLE: LOW VISION OPTOMETRY FOLLOW-UP STANDARD TITLE: OPTOMETRY DIAGNOSTIC STUDY NOTE DATE OF NOTE: MAR 31, 2024@07:47 ENTRY DATE: MAR 31, 2024@07:47:53 AUTHOR: ANGELIKA ANDRADE EXP COSIGNER: URGENCY: STATUS: COMPLETED Ocular Diagnosis: (x) Legal blindness, as defined in [place] (ICD-10-CM H54.8) (x) Additional: Exudative ARMD,Left Eye w/ Inactive Scar (ICD-10-CM H35.3233) DM Type 2 w/o Complications (ICD-10-CM E11.9) Combined forms of age-related cataract, bilateral (ICD-10-CM H25.813) Appointment Information: (x) Rieq-gm-nidr Verified two identifications: (x) Full name (x) Date of ()Yes ()No (x)No Family/Friends present - Received verbal permission to speak in front of family/friend from Relationship to : Low Vision Team Meeting with Physician Duration of Meetin minutes Patient Not Present (verified by full name and social security number) Staff present: (x) Low Vision Optometry (LV OD) (x) Blind Rehabilitation Outpatient Specialist (BROS) (x) Visual Impairment Services Cost Accounting Clerk (VIST) () Other Ocular Diagnosis: (x) Legal blindness, as defined in [place] (ICD-10-CM H54.8) () Low Vision, Both Eyes (ICD-10-CM H54.2) () Unqualified visual loss, both eyes (ICD-10-CM H54.3) (x) Additional: see above Chief Complaint(s): 1. [place] reports decrease in vision. Scheduled with Visual Impairment Services Team to address current goals. The following were reviewed during the team meeting: (x) Patient profile/history (x) General health (x) Ocular health and diagnosis (x) Previously issued ocular devices (x) Social/recreational activities (x) Adjustment to sight loss (x) Functional Assessment/concerns (x) Goals () Other: Patient scheduled to meet with the following clinics today: (x) Low Vision Optometry (x) Blind Sock Liner () Visual Impairment Services Cost Accounting Clerk Financial co-pay () Yes (x) No Plan: Meet with providers as scheduled Assist as needed Proceed with Low Vision Evaluation including further training by BROS as indicated and current Case Management with VIST Sohv-mo-Lepr Time documentation: Start time: 11:05am End time: 12:00pm Total time: 55 minutes minus Refraction time: (-) 5 min minus Special procedures time: (-) 0 min = 50 minutes total time spent with patient *Greater than 50% of the visit spent iuet-yc-pdua with patient was used for patient education and counselling. Patient was educated about permanent nature of vision loss and specific visual limitation from patient's specific etiology. Realistic outcomes of exam discussed at length. Patient educated at length on importance of full-time protection and safety concerns with each recommendation. Patient educated on best use of remaining vision and visual prognosis. Patient educated re proper use and purpose of each device and spectacle. Patient educated on purpose of low vision evaluation and that this does not replace ocular health examinations. Further details of specific education as described above.* Coordination of Care: Prolonged time spent on coordination of care. Extensive record review performed in relation to prior ocular, systemic and mental health as well as VIST/BROS records both at this VA facility and all documentation available from outside providers as well as other VA locations to determine any physical, emotional, cognitive and visual events that may impact patient regarding the low vision evaluation and potential device recommendations. Total time spent (not svvc-pr-twxk): 30 minutes Total Time (Direct + Non-Direct): 50 + 30 = 80 minutes Procedure Codes: Established Patient (1 time) 19943 Est Patient (40-54 minutes) Extended time Procedure Codes Established Patients Prolonged Office or other Outpatient Evaluation and Management Service(s) Beyond the Minimum Required Time of the Primary Procedure which has been Selected using Total Time, Requiring Total Time with or without Direct Patient Contact Beyond the Usual Service, on the Date of the Primary Service, each 15 minutes of Total Time (List Separately in addition to Codes 07969, 72697 for Office or other Outpatient Evaluation and Management Services) (2 times) 84137 (70-84 minutes) Other: (1 time) 25822 Refraction (1 time) 29488 Team conference s patient by physician (30 min) Chief Complaint(s): 1. Low Vision History Review 2. Oxkl-ii-Cnif Evaluation a. Habitual Rx c comments b. Visual Acuity c. Static Retinoscopy d. Subjective Refraction e. Final RX f. Near Evaluation: i. Portable Video Magnifier Trial: 3. Ocular Pathology Education 4. Final Recommendations 5. Future LVOD Appointments/RTC Instruction Provided: 1. Low Vision History Review Low Vision Evaluation for: SREEDHAR LEMUS, 88 year old MALE Examiner: Angelika Andrade OD, FAAO Ocular Diagnosis: see above RONY: Location: 03.24.24 [facility] 11.20.[address] Garay Home [facility] (x)[facility] ()[facility]PS Low vision instructor: Brian CHAMBERLAIN Chief Complaint: Reports Dr. Graay discussed his cataracts again yesterday but feels he is doing well with his vision overall. Reports he is still going to his [email or web address] club and verbalizes missing his original Amigo PVM, difficulty with many additional buttons of AmigoHD in past and currently must take stamps home and use CCTV or use strong illuminated HHM but difficulty remains. Originally asking for cash application representative for original amigo, no longer made and batteries also no longer made that were charged in device. Chronology of Vision Loss: see prior reports Adjustment to vision loss: gets frustrated about vision loss and/or blindness? 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 Pt ed to report these symptoms. No olfactory, auditory or gustatory sensation associated. 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 Under care of multiple providers ([facility] [id number]) R25.1 Tremor ([facility] [id number]) H40.20X0 Narrow angle glaucoma ([facility] [id number]) E11.9 Diabetes mellitus ([facility] [id number]) Z87.891 Ex-smoker ([facility] [id number]) I25.9 Chronic ischemic heart disease ([facility] [id number]) I25.10 Coronary artery disease ([facility] [id number]) H35.3230 Exudative age-related macular degeneration ([facility] [id number]) K21.9 Gastroesophageal reflux disease without esophagitis ([facility] [id number]) H91.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 Essential hypertension ([facility] [id number]) E78.5 Hyperlipidemia ([facility] [id number]) M19.91 Osteoarthritis ([facility] [id number]) J44.89 Chronic obstructive lung disease ([facility] [id number]) D07.5 Prostate cancer ([facility] [id number]) H54.8 Legal blindness ([facility] [id number]) Z86.11 H/O: tuberculosis ([facility] [id number]) Z77.090 Asbestosis ([facility] [id number]) Systemic Medications: Active Outpatient Medications (including Supplies): Active Outpatient Medications Status 1) ACETAMINOPHEN 500MG TAB TAKE TWO TABLETS BY MOUTH ACTIVE THREE TIMES DAILY NEEDED FOR PAIN 2) ALOGLIPTIN 25MG TAB TAKE ONE TABLET BY MOUTH ONCE ACTIVE (S) DAILY IN PLACE OF SITAGLIPTIN 3) AMLODIPINE BESYLATE 10MG TAB TAKE ONE TABLET BY MOUTH ACTIVE (S) ONCE DAILY FOR BLOOD PRESSURE/HEART, DO NOT TAKE WITH GRAPEFRUIT JUICE 4) ASPIRIN 81MG EC TAB TAKE ONE TABLET BY MOUTH ONCE ACTIVE DAILY TO PREVENT STROKE/HEART ATTACK 5) ATORVASTATIN CALCIUM 80MG TAB TAKE ONE TABLET BY ACTIVE (S) MOUTH ONCE DAILY FOR CHOLESTEROL 6) BRIMONIDINE 0.2%/BRINZOLAMID 1% OPH SUSP INSTILL 1 ACTIVE DROP INTO EACH EYE TWICE DAILY 7) CARVEDILOL 3.125MG TAB TAKE ONE TABLET BY MOUTH TWICE ACTIVE DAILY FOR HIGH BLOOD PRESSURE 8) CHOLECALCIF 25MCG (D3-1,000UNIT) TAB TAKE ONE TABLET ACTIVE BY MOUTH ONCE DAILY FOR VITAMIN SUPPLEMENTATION 9) DOCUSATE NA 100MG CAP TAKE ONE CAPSULE BY MOUTH TWICE ACTIVE DAILY NEEDED TO SOFTEN STOOL 10) EPLERENONE 25MG TAB TAKE ONE TABLET BY MOUTH ONCE ACTIVE (S) DAILY FOR HIGH BLOOD PRESSURE 11) KETOCONAZOLE 2% SHAMPOO SHAMPOO SMALL AMOUNT ACTIVE TOPICALLY ONCE DAILY 12) LATANOPROST 0.005% OPH SOLN INSTILL 1 DROP INTO EACH ACTIVE (S) EYE AT BEDTIME 13) LOSARTAN 100MG TAB [...] VIA NC AT NIGHT ACTIVE DIRECTED NEEDED 20 Total Medications ALLERGIES: SULFA DRUGS PREVIOUS OPTICAL DEVICES 1. Constant Wear Spec.: How Old: 3 Where From: [facility] OD: +2.25-1.27m335 OS: +2.75-0.30m974 Description: SV Tint: Yellow #1 Subjective Comments: working well *Prior Tints: 80% Transmission Ayse 2. Reading Spec.: 3. Intermediate Spec.: How Old: 09/2019 Where From: [facility] OD: Blackened and Frosted OS: +4.75-0.85m099 Description: SV Tint: 80% Transmission Yellow Subjective Comments: working well per 4. Non-Illuminated HHM: 5. Illuminated HHM: Description: KRIS Ergo-Lux MP Mobil 28D How Old: 2018 Where From: [facility] Subjective Comments: had 7x/24D PowerMag HH bright white in 2018. Has a few at home. Has one he takes to his [email or web address] club but doesn't give the detail he wants to see. 6. Monocular/Binocular Telescopes: 7. Spectacle Mounted Telescopes: How Old: 11/2018 Where From: [facility] OD: Blackened and Frosted OS: +2.75-0.34u450 with 1.7 FDTS on-center Description: SMTS Tint: none Subjective Comments: does not recall device 8. Sunwear: 40% Transmission Baker/Ayse *Prior Tints: 9. Non-optical Devices: Brother Ink Cartridges Talking Atomic Watch Male Voice Black Hands 2023 Extra Large Print Calendar Baker Bump Dots (40 pcs.) 2022 Extra Large Print Calendar Bold appeals writer pens Clasp Band LV Talking Watch Dolomite Cane Mccullough-for support cane Dolimite Rollator Legacy (Standard Width, Handle Height 33 -37 ) autosqueeze eye drop Brother Ink Cartridges Talking Blood Pressure Monitor Pet Wireless 2019 (vChatter/Mac) Oscar TechO Computer Package With Windows 10 (nontouch screen) ZoomText-M/R ZoomText Large Print Keyboard - Yellow Blue Rapids/Black Lettering Expert Mouse Trackball LogicLight USB Keyboard Light - Black Talking Oral Medical Thermometer [place] [id number] Bluetooth Headphones (Black) autosqueeze eye drop autodrop eye drop iPhone XS (64GB Space Parks) (Verizon) Otterbox Defender Series Screenless Edition Case for iPhone XS - Black iPhone XS Screen Protector Glass Guardian Alert Lockbox Guardian Alert Plus Baker Bump Dots (24 pcs.) Innobella High Yield (XL Series) Color Ink Innobella High Yield (XL Series) Black Ink Mixed Dots 80 pcs. Talking Scale WCIB Aluminum Folding Cane Marshmallow Style Roller Tip, Slip-on Prodigy Voice Talking Glucometer Digit-Eyes Audio Scanner and Environmental Services Aide TRHEA Transformer HD/Wi-Fi Zoom Caps Keytop Enlargers (Black Blue Rapids/White Letter) FasterPants Pro 9.7 Silver (32 GB Wi-Fi) ZoomText Keyboard MacCase Premium Leather Case for iPad Air (Black) Apple Lightning to USB Charge & Sync Cable (White, 3.25') ClearReader+ LG BUTTON AMPLIFIED PHONE WITH BACKTALK AND BRAILLE Scrip Talk Station [place] LOW VISION WRITING PAPER Talking Scale [employer] Razor Scanner for OCR Software 10. Other Spectacles or Devices: (x) Optivisor 2D Optivisor with 10D loupe and ava headlamp 5D Optivisor with 10D loupe 7D Optivisor () LuxoMag Lamp () Stand Magnifier (x) CCTV with/without OCR [place] 19 Acrobat (x) Portable Video Magnifier Amigo HD - found device but could not find cash application representative, will discuss with CINTIA Whalne () Head borne Video Magnifier () Other: ILLUMINATION: Indoors/Home: (x) Patient reports lighting in home is comfortable without issue Outdoors: (x) Patient reports vision best on overcast day MOBILITY: In Patient's Home: (x) Patient denies difficulty or recent falls Outdoors: (x) Patient denies difficulty or recent falls INTERESTS/HOBBIES: (x) Reading: using OCR more than CCTV these days (x) Intermediate Tasks: (x) Collections ([place]) Reports/Denies difficulty using current devices (x) Distance Viewing (television, theater, sports, etc.) (x) Television watching: reports he is sitting a bit too far away GOALS (PRIORITIZED): 1. Replacement charging cord for Amigo. No longer made. Would like option to take to [facility] if possible. 2. Byaf-mo-Lsru Evaluation a. Habitual Rx c comments: DVAcc: 03.24.24 r d internship with Dr. Lima OD: HM in temp field OSL 5/100+ DVAcc: LVOD 3..23 OD: +2.25-1.87u709 HM@1' 5 mod-full OS: +2.75-0.27s884 3 mod b. Visual acuity Feinbloom cc Eccentric View: Illumination: OD: HM@1' n/a full OS: +1 3 mod-full Comments: c. Static Retinoscopy OD: neutral OS: neutral d. Subjective Refraction OD: no change OS: no change e. Final RX VA: EV: Illum: OD: +2.25-1.64e140 HM@1' n/a full OS: +2.75-0.29c946 10/140-1+1 3 mod-full Comments: Patient educated extensively that constant wear glasses and sunglasses will reduce glare and provide protection but will not improve clarity from current glasses and that for best clarity must use PRL. Patient educated multiple times on the importance of full-time protective eyewear. Discussed with the patient the realistic expectations and goal of low vision services in maximizing remaining vision to best meet his visual goals. f. Near Evaluation: i. Portable Video Magnifier Trial: Trialed Explore 8 in office for purpose of [employer] but did not have stamps to evaluate. [place] able to read newspaper in office and looked at photo in paper and feels level of detail and simplicity of 3 buttons will be very beneficial at [employer]. 3. Ocular Pathology Education: Patient educated at length regarding natural history of ocular pathology, purpose of treatment, and the impact on functional vision. Patient educated on the importance of continued follow-up with ocular health providers and that low vision rehabilitation in no way replaces ocular health exams. Patient educated on importance of alerting ocular health provider of any changes in vision or new symptoms. Patient educated on permanent nature of vision loss associated with ocular pathology. Patient educated on the differences in refractive error and the impact of ocular pathology. Patient educated on purpose of glasses and adaptive aids. 4. Final Recommendations 1. PVM: Explore 8 5. Future LVOD Appointments/RTC (x)Low vision evaluation completed at this time. Discussion with patient and will place RTC for 1 year Prosthetics Ordered: 1. See Above Next Lesson Objective / Recommendations: 1. A consult has been placed for additional training/follow-up with CINTIA. See BROLuda note for full details. 2. The [place] has been provided large print contact information and is aware that he can contact the LVOD, VIST or BROS with any questions from todays lesson or about his vision loss. Comments: How does the patient/client best learn? (x) Observation (x) Repetition () Large Print Directions () Standard Print Directions (x) Audible Directions Does the patient/client have any cultural and latter day beliefs, emotional barriers, physical or cognitive limitations, and communication barriers which may impact his/her ability to learn? Barrier to Patient Education identified: None() Non-Somali speaking() Cognitive () Hearing Impaired (x) Emotional () Spiritual Practices () Visually Impaired (x) Inability to read () Preferred method of learning: (x)Verbal ()Written ()Demonstration Patient's response: (x)Could repeat significant material (x)Asked pertinent questions (x)Able to demonstrate skills learned Desire and motivation to learn? (x) Excellent () Moderate () Low Not receptive to learning () Patient Education Education provided on the following topics: see above Education provided to: P Response to Education: VU, [place], PI Zepeda Patient P Family F Significant Other SO Verbalizes Understanding VU Returns Demonstration RD Performs Independently PI Lacks Comprehension LC Refused Education RE Not Applicable NA Disclaimer: Because the acuities and bean in this evaluation were taken using special techniques and lighting NOT contained in the [place] Physician Guide Disability Evaluation Examination, they CANNOT be used for rating purposes. Medication Reconciliation: Outpatient: Has the patient been taking medications as documented in the EMLR? YES: The patient has been taking medications as documented in the EMLR. Essential Medication List for Review used to complete this medication reconciliation. INCLUDED IN THIS LIST: Alphabetical list of active outpatient prescriptions dispensed from this [place] (local) and dispensed from another [place] or [facility] facility (remote) as well as inpatient orders (local, pending and active), local clinic medications, locally documented non-VA medications, and local prescriptions that have or been discontinued in the past 90 days. - All changes in medications, including all non-VA/Herbal/OTC medications were entered into CPRS. - If there were any medications the patient should no longer take, they were discontinued. - The patient/caregiver was instructed to update this list, discard old lists, and take this list to the next appointment, whether with a VA or non-VA provider. Medication List: JLV Link Data on this list may not be complete. Please check JLV. Allergies/ADRs (Tool #5) FAC[facility] ALLERGY/ADR -------- [facility] [place] [facility] Med. Reconciliation (Tool #1) INCLUDED IN THIS LIST: Alphabetical list of active outpatient prescriptions dispensed from this [place] (local) and dispensed from another [place] or [facility] facility (remote) as well as inpatient orders (local pending and active), local clinic medications, locally documented non-VA medications, and local prescriptions that have or been discontinued in the past 90 days. Non-VA Meds Last Documented On: Dec 21, 2023 NOTE The display of VA prescriptions dispensed from another [place] or [facility] facility (remote) is limited to active outpatient prescription entries matched to National Drug File at the originating site and may not include some items such as investigational drugs, compounds, etc. NOT INCLUDED IN THIS LIST: Medications self-entered by the patient into personal health records (i.e. [facility]) are NOT included in this list. Non-VA medications documented outside this [place], remote inpatient orders (regardless of status) and remote clinic medications are NOT included in this list. The patient and provider must always discuss medications the patient is taking, regardless of where the medication was dispensed or obtained. OUTPT ACETAMINOPHEN 500MG TAB (Status = Active) TAKE TWO TABLETS BY MOUTH THREE TIMES DAILY NEEDED FOR PAIN Rx# [id number] Last Released: 09/16/23 Qty/Days Supply: 200/34 Rx Expiration Date: 09/15/24 Refills Remainin Indication: FOR PAIN OUTPT ALOGLIPTIN 25MG TAB (Status = Active/Suspended) TAKE ONE TABLET BY MOUTH ONCE DAILY IN PLACE OF SITAGLIPTIN Rx# [id number] Last Released: 01/19/24 Qty/Days Supply: 90/ Rx Expiration Date: 11/06/24 Refills Remainin Indication: FOR TYPE 2 DIABETES MELLITUS OUTPT AMLODIPINE BESYLATE 10MG TAB (Status = Discontinued) TAKE ONE TABLET BY MOUTH ONCE DAILY FOR BLOOD PRESSURE/HEART, DO NOT TAKE WITH GRAPEFRUIT JUICE Rx# [id number] Last Released: 01/25/24 Qty/Days Supply: 90 Rx Expiration Date: 04/20/24 Refills Remainin OUTPT AMLODIPINE BESYLATE 10MG TAB (Status = Active/Suspended) TAKE ONE TABLET BY MOUTH ONCE DAILY FOR BLOOD PRESSURE/HEART, DO NOT TAKE WITH GRAPEFRUIT JUICE Rx# [id number] Last Released: QtyDays Supply: 90 Rx Expiration Date: 03/30/25 Refills Remainin OUTPT ASPIRIN 81MG EC TAB (Status = Active) TAKE ONE TABLET BY MOUTH ONCE DAILY TO PREVENT STROKE/HEART ATTACK Rx# [id number] Last Released: 02/15/24 Qty/Days Supply: 120/90 Rx Expiration Date: 02/10/25 Refills Remainin Indication: FOR BLOOD CLOT PREVENTION FOLLOWING PCI OUTPT ATORVASTATIN CALCIUM 80MG TAB (Status = Active/Suspended) TAKE ONE TABLET BY MOUTH ONCE DAILY FOR CHOLESTEROL Rx# [id number] Last Released: 01/19/24 Qty/Days Supply: 90/ Rx Expiration Date: 10/01/24 Refills Remainin OUTPT BRIMONIDINE 0.2%/BRINZOLAMID 1% OPH SUSP (Status = Active) INSTILL 1 DROP INTO EACH EYE TWICE DAILY Rx# [id number] Last Released: 03/28/24 Qty/Days Supply: Rx Expiration Date: 11/26/24 Refills Remainin OUTPT CARVEDILOL 3.125MG TAB (Status = Active) TAKE ONE TABLET BY MOUTH TWICE DAILY FOR HIGH BLOOD PRESSURE Rx# [id number] Last Released: 03/09/24 Qty/Days Supply: 180/ Rx Expiration Date: 03/09/25 Refills Remainin Indication: FOR HIGH BLOOD PRESSURE OUTPT CHOLECALCIF 25MCG (D3-1,000UNIT) TAB (Status = Active) TAKE ONE TABLET BY MOUTH ONCE DAILY FOR VITAMIN SUPPLEMENTATION Rx# [id number] Last Released: 03/08/24 Qty/Days Supply: 90 Rx Expiration Date: 08/04/24 Refills Remainin OUTPT DOCUSATE NA 100MG CAP (Status = Active) TAKE ONE CAPSULE BY MOUTH TWICE DAILY NEEDED TO SOFTEN STOOL Rx# [id number] Last Released: 11/09/23 Qty/Days Supply: 100/50 Rx Expiration Date: 10/28/24 Refills Remainin Indication: FOR CONSTIPATION OUTPT EPLERENONE 25MG TAB (Status = Active/Suspended) TAKE ONE TABLET BY MOUTH ONCE DAILY FOR HIGH BLOOD PRESSURE Rx# [id number] Last Released: 02/10/24 Qty/Days Supply: 90 Rx Expiration Date: 09/15/24 Refills Remainin Indication: FOR HIGH BLOOD PRESSURE Non-VA FLUTICASONE/UMECLID/VILANT (TRELEGY 200) INHL,ORAL INHALE BY MOUTH ONCE DAILY OUTPT KETOCONAZOLE 2% SHAMPOO (Status = Active) SHAMPOO SMALL AMOUNT TOPICALLY ONCE DAILY Rx# [id number] Last Released: 11/09/23 Qty/Days Supply: 120/90 Rx Expiration Date: 10/28/24 Refills Remainin Indication: FOR FUNGAL INFECTION OF THE SKIN OUTPT LATANOPROST 0.005% OPH SOLN (Status = Discontinued) INSTILL 1 DROP INTO EACH EYE AT BEDTIME Rx# [id number] Last Released: 11/27/23 Qty/Days Supply: 12.5 Rx Expiration Date: 11/26/24 Refills Remainin OUTPT LATANOPROST 0.005% OPH SOLN (Status = Active/Suspended) INSTILL 1 DROP INTO EACH EYE AT BEDTIME Rx# [id number] Last Released: Qty/Days Supply: Rx Expiration Date: 01/11/25 Refills Remainin OUTPT LOSARTAN 100MG TAB (Status = Active) TAKE ONE TABLET BY MOUTH ONCE DAILY FOR BLOOD PRESSURE/HEART Rx# [id number] Last Released: 03/15/24 Qty/Days Supply: Rx Expiration Date: 10/01/24 Refills Remainin Indication: FOR HIGH BLOOD PRESSURE OUTPT MULTIVIT/OPHTH AREDS2/LUTE/ZEAX CAP/TAB (Status = Discontinued) TAKE 1 CAPSULE BY MOUTH TWICE DAILY IN THE MORNING AND EVENING, WITH FOOD Rx# [id number] Last Released: 03/08/24 Qty/Days Supply: 120/60 Rx Expiration Date: 03/25/24 Refills Remainin OUTPT MULTIVIT/OPHTH AREDS2/LUTE/ZEAX CAP/TAB (Status = Active/Suspended) TAKE 1 CAPSULE BY MOUTH TWICE DAILY IN THE MORNING AND EVENING, WITH FOOD Rx# [id number] Last Released: Qty/Days Supply: 120/60 Rx Expiration Date: 03/30/25 Refills Remainin Non-VA OXYGEN MISCELLANEOUS USE 2 LITERS VIA NC AT NIGHT DIRECTED NEEDED Medication prescribed by Non-VA provider. OUTPT POLYETHYLENE GLYCOL 3350 ORAL PWDR (Status = ) TAKE 17 GRAMS(FILL CAP TO 17GM LINE) BY MOUTH ONCE DAILY NEEDED FOR CONSTIPATION [MIX WITH 4 TO 8OZ. OF BEVERAGE] Rx# [id number] Last Released: 11/09/23 Qty/Days Supply: Rx Expiration Date: 01/26/24 Refills Remainin Indication: FOR CONSTIPATION OUTPT PRIMIDONE 50MG TAB (Status = Active) TAKE ONE TABLET BY MOUTH THREE TIMES A DAY Rx# [id number] Last Released: 03/15/24 Qty/Days Supply: Rx Expiration Date: 10/01/24 Refills Remainin OUTPT TIMOLOL MALEATE 0.5% OPH GEL (Status = Active) APPLY 1 DROP INTO EACH EYE TWICE DAILY Rx# [id number] Last Released: 03/28/24 Qty/Days Supply: Rx Expiration Date: 07/14/24 Refills Remainin OUTPT TIMOLOL MALEATE 0.5% OPH SOLN (Status = Active) INSTILL 1 DROP INTO EACH EYE TWICE DAILY Rx# [id number] Last Released: 03/09/24 Qty/Days Supply: Rx Expiration Date: 11/26/24 Refills Remainin OUTPT TORSEMIDE 20MG TAB (Status = Discontinued) TAKE ONE TABLET BY MOUTH ONCE DAILY Rx# [id number] Last Released: 01/19/24 Qty/Days Supply: Rx Expiration Date: 07/20/24 Refills Remainin OUTPT TORSEMIDE 20MG TAB (Status = Active) TAKE ONE TABLET BY MOUTH ONCE DAILY Rx# [id number] Last Released: 03/15/24 Qty/Days Supply: Rx Expiration Date: 02/10/25 Refills Remainin SUPPLIES OUTPT PRODIGY NO CODE (GLUCOSE) TEST STRIP (Status = ) USE 1 STRIP TO TEST BLOOD SUGARS TWICE A WEEK NEEDED Rx# [id number] Last Released: 03/12/23 Qty/Days Supply: Rx Expiration Date: 03/03/24 Refills Remainin PHARMACY TERMS AND POSSIBLE PATIENT ACTIONS INPT = [place] inpatient order IV = [place] intravenous medication OUTPT = [place] outpatient prescription PHARMACY POSSIBLE PATIENT TERMS EXPLANATION ACTIONS -------- ---- ACTIVE A prescription that can be If you have refills, filled at the local [facility] pharmacy. you may request a refill of this prescription from your VA pharmacy. CLINIC A medication you received during If you have questions a visit to a VA clinic or about this medication emergency department. contact your VA healthcare team. DISCONTINUED A prescription your provider has Contact your VA stopped. It is no longer healthcare team if you available to be sent to you or need more of this picked up at the [place] pharmacy medication. window. A prescription which is too old Contact your VA to fill. This does not refer to healthcare team if you the expiration date of the need more of this medication in the container. medication. NON-VA A medication that came from If this medication someplace other than a VA information is pharmacy. This may be a incorrect or out of prescription from either the VA date, please tell your or non VA providers that was VA healthcare team. filled outside the VA. Or, it may be an [id number] (OTC), herbal, dietary supplements or sample medication. ON HOLD An active prescription that will Contact your VA not be filled until pharmacy pharmacy when you need resolves the issue. more of this medication. PARKED An active prescription that will Contact your VA not be filled until the patient pharmacy when you need requests it. this medication. PENDING This prescription order has been If you have been sent to the pharmacy for review instructed to start and is not ready yet. this medication now, contact your VA pharmacy. SUSPENDED An active prescription that is Contact your [place] not scheduled to be filled yet. pharmacy if you need You should receive it before this medication now. you run out. (x) Printed Medication Reconciliation List Offered and Declined by [place] () Medication Reconciliation List Printed for at Exam () Optometry HT Please Print and Mail Copy of Medication Reconciliation List () AMSA Please Print and Mail Copy of Medication Reconciliation List /es/ ANGELIKA ANDRADE OD DIGITAL TRAFFIC COORDINATOR Signed: 04/01/2024 10:25 ANGELIKA ANDRADE [facility]
--- OUTSIDE RECORDS SUMMARY | 2024-11-16 10:45 | XMS_ITS | Encounter Summary ---
Author Name [facility] ([place] Address [address] [place] [id number] Care Team Providers Care Compliance Tester Name Role Phone GILES FUENTES Primary Care [...] CAREMARK PRESCRIPT ION GEHA Sep 14, 2014 [id number] [phone] FANY LEMUS ON PATIENT CAREMARK PRESCRIPT ION SUSI ATKINSON Sep 14, 2014 [id number] [phone] FANY LEMUS ON PATIENT CAREMARK PRESCRIPT ION Sep 14, 2014 [id number] [phone] ALLAN,MYR ON PATIENT GEHA (SECONDARY ) PREFERRED PROVIDER ORGANIZAT ION (PPO) HIGH OPTIO N MCR A&B Sep 14, 2005 [id number] ALLAN,MYR ON PATIENT GEHA (SECONDARY ) PREFERRED PROVIDER ORGANIZAT ION (PPO) GEHA CONNE CTION DENT Sep 14, 2005 [id number] ALLAN,MYR ON PATIENT GEHA FEHB PREFERRED PROVIDER ORGANIZAT ION (PPO) SUSI AL GOV Sep 14, 2005 [id number] ALTH [id number] ALLAN,MYR ON PATIENT GEHA FEHB PREFERRED PROVIDER ORGANIZAT ION (PPO) SUSI AL* Sep 14, 1989 [id number] ALTH [id number] ALLAN,MYR ON PATIENT GEHA-BEHAV [facility] GEHA HIGH OPTIO N Sep 14, 2021 [id number] ALLAN,MYR ON PATIENT MEDICARE (WNR) MEDICARE (M) PART B May 15, 2000 PART B [id number] [id number] ALLAN,MYR ON PATIENT MEDICARE (WNR) MEDICARE () PART A May 15, 2000 PART A [id number] ALLAN,MYR ON PATIENT MEDICARE (WNR) MEDICARE (M) PART B May 15, 2000 PART B [id number] ALLAN,MYR ON PATIENT MEDICARE (WNR) MEDICARE (M) PART A May 15, 2000 PART A [id number] ALLAN,MYR ON PATIENT MEDICARE (WNR) MEDICARE (M) PART A May 15, 2000 PART A [id number] [phone] ALLAN,MYR ON PATIENT MEDICARE (WNR) MEDICARE (M) PART B May 15, 2000 PART B [id number] ALLAN,MYR ON PATIENT MEDICARE (WNR) MEDICARE (M) PART A May 15, 2000 PART A [id number] FANY LEMUS ON PATIENT MEDICARE (WNR) MEDICARE (M) PART B May 15, 2000 PART B [id number] FANY LEMUS ON PATIENT Selected Encounter This section includes the information on record at [place] for the Encounter. Date/Time Encounter Type Encounter Description Reason Provider Source Aug 18, 2024 12:49 PM CASE MANAGEMENT [facility] - FOOD AND DRUG INSPECTOR ICD-10-CM Z65.9 Problem related to unspecified psychosocial circumstances Robin NORTON I[facility] Encounter Template Text not used by [place] Assessments - Encounter Diagnoses This section includes the primary and secondary diagnoses documented for the Encounter. Date/Time Primary/Secondary Diagnosis Diagnosis Name Provider Source Aug 18, 2024 04:01 PM PRIMARY Problem related to unspecified psychosocial circumstances Robin NORTON [facility] Plan of Treatment: Future Appointments (+ 6 months) and Future Tests (+/- 45 days) The Plan of Treatment section includes future care activities for the patient from all [place] [facility]. This section includes future appointments and future orders which are active, pending or scheduled. Future Appointments This section includes appointments that were scheduled to occur 6 months from the date of the Encounter, up to a maximum of 20 appointments. The data comes from all [facility]. Appointment Date/Time Appointment Type Appointme nt Facility Name Sep 26, 2024 10:00 AM AMBULATORY - REHAB MEDICIN E [facility] Oct 21, 2024 11:30 AM AMBULATORY - MEDICINE [facility] Active, Pending, and Scheduled Orders This section includes a listing of several types of active, pending, and scheduled orders, including clinic medications orders, diagnostic test orders, procedure orders and consult orders; where the start date of the order is 45 days before the date of the Encounter or 45 days after the date of theEncounter. The data comes from all [place] treatment [facility]. Test Date/Time Test Type Test Details Facility Name Aug 30, 2024 12:00 AM Laboratory - Chemi stry Order BASIC METABOLIC PANEL (non-fasting) BLOOD (SST-SERUM) [facility] Aug 30, 2024 12:00 AM Laboratory - Chemi stry Order BNP (Natriuretic Peptide Brain) [facility] (LA[facility]ASMA[facility] Social History: Smoking Status (Most current) and Tobacco Use (All prior to encounter date) This section includes the most current, and the historical, smoking and tobacco- related health factors from the [place] facility where the Encounter took place. Current Smoking Status This section includes the most current smoking, or tobacco-related health factor, from the [place] facility where the Encounter took place. Date/Time Current Smoking Status Comment Facil ity Sep 02, 2023 05:30 PM [facility]ACCO [facility] Tobacco Use History This section includes a history of the smoking, or tobacco-related health factors, that were collected on or before the date of the Encounter. The data comes from the [place] facility where the Encounter took place. Date/Time Smoking Status/Tobacco Use Comment F acility Sep 02, 2023 05:30 PM VA-TOBACCO QUIT 15 YRS OR MORE [facility] Apr 24, 2022 01:00 PM VA-TOBACCO FORMER USER [place] [facility] Apr 24, 2022 01:00 PM VA-TOBACCO QUIT 15 YRS OR MORE [place] [facility] [place] [facility] Dec 05, 2021 02:00 PM VA-TOBACCO USE DEC LINED TO ANSWER [facility] Nov 24, 2021 04:05 PM VA-TOBACCO USE DEC LINED TO ANSWER [place] [facility] [place] [facility] Sep 20, 2020 08:40 AM [facility]TOBACCO [facility] Advance Directives: All historical and current Section Date Range: From patient's date of to the date document was created. This section includes ALL of a patient's completed or amended [place] Advance and Rescinded Directives. The entries below indicate that a directive exists for the patient, but an actual copy is not included with this document. The data comes from all [place] facilities. Date Advance Directives Provider Source Nov 11, 2016 ADVANCE DIRECTIVE ELROY KING [place] [facility] [place] [facility] Jul 08, 2006 ADVANCE DIRECTIVE CHAPARRO DICK [facility] Encounter Notes: All associated encounter notes This section contains the clinical notes associated to the Encounter. Date/Time Encounter Note(s) Provider Source Aug 18, 2024 11:00 AM [facility] NOTE: LOCAL TITLE: [facility] SOCIAL WORK ASSESSMENT STANDARD TITLE: [facility] NOTE DATE OF NOTE: AUG 18, 2024@11:00 ENTRY DATE: AUG 18, 2024@12:50 AUTHOR: BILLIE NORTONIGNER: URGENCY: STATUS: COMPLETED WHAT MATTERS What Matters was addressed at this visit. Comment: To wake up in the morning. MENTATION Depression was addressed at this visit. Comment: Negative PHQ-2. MENTATION Dementia was addressed at this visit. Comment: [facility] Exam score of 4 falling WNL. Short term memory impairment reported by [place] and his partner. MENTATION Delirium was addressed at this visit. Comment: No s/s of delirium observed. SOCIAL WORK ASSESSMENT was seen for: [ ] Initial Review [X] Annual Review Admission Date: 08/21/21 identified by: [ ] Full Name [X] Address [ ] [ ] SSN [X] Facial Recognition Patient Demographics: Address: [address] [place] [address] [place] [address] County: [place] Marital Status: Age: 89 Presybeterian: MOSQUE, NO DENOMINATION Sex: MALE Occupation: Period of Service: ERA Branch of Service: [employer] Combat: NO POW: NO Eligibility: [place] LESS THAN 50% Status: VERIFIED Means Test: NO LONGER REQUIRED NOK: KELY KING Relation: [facility] [employer] [facility] [place], [place] Service Connected Disabilities with % Eligibility: [place] LESS THAN 50% VERIFIED Total S/C %: 10 ASBESTOSIS 0% S/C IMPAIRED HEARING 0% S/C TINNITUS 10% S/C Other persons present: Partner Kely Length of visit: 60 minutes CURRENT LIVING ARRANGEMENTS [ ] Own Home [ ] Apartment/rented house [ ] Skilled Nursing Home [ ] Fci [ ] Assisted Living [X] Home of Significant Other [ ] Home of other family members [ ] Home of friends [ ] Other: Patient lives with: [ ] Alone [ ] With Spouse [ ] With Adult Child [X] With Significant Other [ ] With a Friend [X] Other: And partner's granddaughter Home environment: [ ] Cluttered [X] Clean/tidy [ ] Lacks appropriate heating/plumbing/cooking/fo od storage [ ] Unsanitary [ ] Strong Odor [ ] Fall risks [ ] Steps to enter/or inside home [ ] Other: PATIENT'S PRESENTATION/MENTAL STATUS ASSESSMENT: 1. ORIENTATION: Oriented to: [X] Person [X] Place [X] Time [X] Situation [X] Alert [ ] Lethargic [ ] Confused [X] Memory Deficits [ ] Other: 2. BEHAVIORS: [X] Socially appropriate [ ] Aggressive [ ] Yelling [ ] Withdrawn [ ] Delusional [ ] Threatening [ ] Wandering [ ]Other: 3. AFFECT: [X] Full range affect [ ] Euphoric [ ] Flat [ ] Calm [ ] Tense [ ] Anxious [ ] Labile [ ] Hostile [ ] Angry [X] Congruent with mood [ ] Incongruent with mood 4. MOOD: [X] Good [ ] Fair [ ] Irritable [ ] Tearful/crying [ ] Hopeless [ ] Guilty 5. HYGIENE: [ ] Good [ ] Well-groomed [ ] Unkempt [ ] Body odor 6. DRESSED: [X]Casually [ ] Professional casual [ ] Neat [ ] Disheveled 7. EYE CONTACT is: [X] Good [ ] Fair [ ] Intermittent [ ] Direct [ ]Avoidant SUPPORT SYSTEMS Informal supports: [place]' partner assists with IADLs, transportation, medical management, and bill paying. She is his POA. Her granddaughter also assists sometimes with eye drops and IADLs. He is independent with his medication and ADLs. His middle son Cameron takes care of the yard for them and plows the driveway when they have a moderate-severe snowfall. He lives in [place] on the [facility]. His other son Mario lives with Cameron as he's epileptic. The two help one another out. He also has a son Bakari that recently moved from [facility] to [place]. Formal supports: No informal supports at this time. [ ]Homemaker/Home Health Aide [ ]Inpatient/in-home respite [ ]Adult Day Health Care [ ]VNA/Skilled Home Health Care [ ]Elder Services [ ]Meals on Wheels [ ]Transportation [ ]Personal Emergency Response System [ ]Home Oxygen [ ]Other: OXYGEN SAFETY [ ]N/A [X]No unsafe behavior observed [ ]Unsafe behavior observed ([facility] Home Oxygen Safety Checklist must be completed if unsafe behavior observed) SUBSTANCE USE Alcohol use: Occasional drink--last one was for his birthday in May. Nicotine use: None Other: Is [place] interested in substance abuse/smoking cessation treatment? [ ]Yes [X]No PSYCHIATRIC HISTORY: No history of mental health issues or treatment reported. CRIMINAL HISTORY: Do you have a legal history(arrests,incarcerati ons,probation,parole,divorc e,child custody issues)? No I/ADL FUNCTIONAL ASSESSMENT Bender Index of [place] in Activities of Daily Living: Bathing: [X] Independent (1) * Bathes self completely or needs help in bathing only a single part of the body such as the back, genital area or disabled extremity. [ ] Dependent (0) * Needs help with bathing more than one part of the body, getting in or out of the tub or shower. Requires total bathing. Dressing: [X] Independent (1) * Gets clothes from closets and drawers and puts on clothes and outer garments complete with fasteners. May have help tying shoes. [ ] Dependent (0) * Needs help with dressing self or needs to be completely dressed. Toileting: [X] Independent (1) * Goes to toilet, gets on and off, arranges clothes, cleans genital area without help. [ ] Dependent (0) * Needs help transferring to the toilet, cleaning self or uses bedpan or commode. Transferring: [X] Independent (1) * Independent (1) - Moves in and out of bed or chair unassisted. Mechanical transferring aides are acceptable. [ ] Dependent (0) * Needs help in moving from bed to chair or requires a complete transfer. Continence: [X] Independent (1) * Exercises complete self-control over urination and defecation. [ ] Dependent (0) * Is partially or totally incontinent of bowel or bladder. Feeding: [X] Independent (1) * Gets food from plate into mouth without help. Preparation of food may be done by another person. [ ] Dependent (0) * Needs partial or total help with feeding or requires parenteral feeding. Total Points = 6 - Score Explanation: 6 = High (patient independent), 0 = Low (patient very dependent) ANNMARIE-REGINALDO INSTRUMENTAL ACTIVITIES OF DAILY LIVING: Telephone use: [X](1) Operates a telephone via own initiative; looks up and dials numbers, etc. [ ](1) Dials a few well known numbers [ ](1) Answers phone but does not dial [ ](0) Does not use telephone at all Shopping: [ ](1) Takes care of all shopping needs independently [ ](0) Shops independently for small purchases [X](0) Needs to be accompanied on any shopping trip [ ](0) Completely unable to shop Meal Preparation: [ ](1) Plans, prepares, and serves adequate meals independently [ ](0) Prepares adequate meals if supplied with ingredients [X](0) Heats, serves, and prepares meals but does not maintain adequate diet [ ](0) Needs to have all meals prepared and served Housekeeping: [ ](1) Maintains house alone or with occasional assistance [X](1) Performs light daily tasks such as dishwashing, bed making [ ](1) Performs light daily tasks but cannot maintain acceptable level of cleanliness. [ ](1) Needs help with all home maintenance tasks [ ](0) Does not participate in any housekeeping tasks Laundry: [ ](1) Does personal laundry completely [ ](1) Launders small items; rinses stockings, etc. [X](0) All laundry must be done by others Transportation: [ ](1) Travels independently on public transportation or drives own car [ ](1) Arranges own travel via taxi, but not otherwise use public transportation program [X](1) Travels only when accompanied by others [ ](0) Does not travel at all Medication mgmt: [ ](1) Is responsible for taking correct medication in correct dose, at correct time [X](0) Takes responsibility if medication is prepared in advance in separate dosages [ ](0) Is not capable of dispensing medications Financial mgmt: [ ](1) Manages financial matters independently (budgets, writes own checks, pays rent) [X](1) Manages day to day purchases but needs help with banking, major purchases, etc [ ](0) Incapable of handling money Do you have VA contracted Home Health Aide Services?No Agency Providing PROOF TECHNICIAN HELPER Services Are you satisfied with your personal care provided by the agency? Do you feel safe with the personal care services provided by the agency? FINANCIAL STATUS Income sources: [ ] VA pension [ ] Skilled Nursing [X] [place] compensation [ ] [place] State Annuity [ ] Aid & Attendance [ ] [address] [X] SS Skilled Nursing [ ] SS Disability [X] Private pension [ ] SSI [ ] Other: Income amount: Undisclosed Financial hardship reported: [ ] Yes [ ] No Who Manages Finances: Copay status: Outpatient Visits:[X] Exempt [ ] Non-Exempt Medications: [X] Exempt [ ] Non-Exempt Insurance: [ ] Medicare A only [X] Medicare A and B [ ] Medicare HMO: [ ] Medicaid: [ ] Supplemental insurance to Medicare: [ ] Other Private insurance: ADVANCE DIRECTIVE: Does the have: VA Advance directives on file? [X] Yes [ ] No State Authorized Health Care Proxy Document on file? [ ] Yes [X] No If yes, was document reviewed with ? [X] Yes [ ] No [X] Current [ ] Needs to be updated HCP:Kely King If no , were advanced directives discussed with ? [ ] Yes [ ] No Legal guardian? [ ] Yes [X] No Power of Tack Maker? [X] Yes [ ] No Conservator/Fiduciary? [ ] Yes [X] No Is there evidence of abuse or neglect? 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 [ ] Yes [X] No If yes, describe: COGNITIVE ASSESSMENT Is Vet a poor historian ? [X] Yes [ ] No Defers to a caregiver/family member? [X] Yes [ ] No Expresses concern over memory? [ ] Yes [X] No Concerns identified: Presence of difficult behaviors? [ ] Yes [X] No If yes, please describe: Does Vet have a diagnosis of cognitive impairment? [ ] Yes [X] No Dx: Hx of neuropsych testing? If yes, dates/location: Cognitive Screening: [X] Is Indicated [ ] Is Not Indicated [ ] Unable To Complete [ ] Declined by Vet Further cognitive evaluation requested by : [ ] Yes [X] No The Blessed Orientation Memory Concentration (BOMC) Test: SCORE 0 1.) What year is it now? 0 2.) What month is it now? 0 3.) About what time is it? 0 4.) Count backwards 20 to 1. 4 5.) Say the months in reverse order (start with August) 0 6.) Repeat the memory phrase. (1)David (1)Dylon (1) (1)Felicitas (1)Musella Score & Interpretation: 4 -- WNL Some short term memory impairment reported by [place] and partner. CAREGIVER STATUS: Does the [place] have a caregiver who provides substantive assistance on an ongoing basis for the [place] in the [place]'s place of residence? (not including paid professional caregivers) YES = Zarit-Wana Interview: Caregiver Name: Kely Fernando 1. Do you feel that because of the time you spend with your relative, you don't have enough time for yourself? [ ] 0 = Never [ ] 1 = Rarely [X] 2 = Sometimes [ ] 3 = Quite frequently [ ] 4 = Nearly always 2. Do you feel stressed between caring for your relative and trying to meet other responsibilities such as work or family? [ ] 0 = Never [ ] 1 = Rarely [X] 2 = Sometimes [ ] 3 = Quite frequently [ ] 4 = Nearly always 3. Do you feel strained when you are around your relative? [ ] 0 = Never [ ] 1 = Rarely [X] 2 = Sometimes [ ] 3 = Quite frequently [ ] 4 = Nearly always 4. Do you feel unsure about what to do about your relative? [X] 0 = Never [ ] 1 = Rarely [ ] 2 = Sometimes [ ] 3 = Quite frequently [ ] 4 = Nearly always Total score = * A score of 8 or higher reflects high burden and needs further follow-up. Needs identified by caregiver: Caregiver denies need for additional support at this time. She receives respite from her granddaughter if needed. 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 [X] Not eligible for VA contracted correction. Advised shelter care would fall to private pay or Medicaid. [ ] [facility] [ ] Housing: [ ] Assisted Living [ ] Independent Living [ ] Other: [ ] Meals on Wheels [ ] Medicaid/Medicare/Shine for private insurance options [ ] VA Benefits/Compensation [ ] Caregiver support group [ ] Outpatient individual therapy [ ] Other: SENIOR CARE PLANNING [X] Patient to stay at home with assistance. [ ] Patient willing to consider SNF. [ ] Declined to discuss shelter planning. ALTERNATIVE PLACEMENT/EMERGENCY PLAN [ ] VA Contract Correction Respite [ ] In-home Respite [X] Alternative family members providing care [ ] [place] can remain home safely short-term. [ ] is independent and does not require a caregiver. [ ] /Caregiver declined. [facility] will continue education placement plans for urgent/emergent care on an annual basis. ASSESSMENT NARRATIVE: Mr. Lemus is an 89 year old [place] who lives with his partner Kely in her home in [place]. [place]' partner assists with IADLs, transportation, medical management, and bill paying. She is his POA. Her granddaughter also assists [place] sometimes with eye drops and IADLs. He is independent with his medication and ADLs. His middle son Cameron takes care of the yard for them and plows the driveway when they have a moderate-severe snowfall. He lives in [place] [facility]. His other son Mario lives with Cameron as he's epileptic. The two help one another out. He also has a son Bakari that recently moved from [facility] to [place]. [place]'s score improved from last year's [facility] Exam--from a 6 to a 4--both WNL. He and his partner report he does have some short term memory impairment. He is not concerned about it and partner helps manage his medical and financial affairs. The [facility] in [place] assisted with disability claim for asbestos. He had a recent Comp & Pen but an exam couldn't be done since he used oxygen the night before. No one told him this would be an issue and it's necessary he is on it since his SAT falls down to 70%. They should be hearing from [facility] in about a month per partner. Partner and [place] deny any major changes from last year and indicated there are no unmet social work needs at this time. Partner has this senior grant writer's number and stated she will call once they hear back from [facility] regarding his disability claim for asbestos. SOCIAL WORK PLAN OF CARE: --Provide psychosocial support as needed. --Next annual assessment to be conducted August 2025 unless otherwise indicated. Advance Directive Screen MH AD: Patient has an Advance Directive on file at this [facility]. No updates are needed at this time. The patient received education about Advance Directives and written notification of his/her rights. Suicide Screen: C-SSRS Screening [place]-Suicide Severity Rating Scale (C-SSRS Screener) 1. Over the past month, have you wished you were or wished you could go to sleep and not wake up? No 2. Over the past month, have you had any actual thoughts of killing yourself? No 3. Over the past month, have you been thinking about how you might do this? Response not required due to responses to other questions. 4. Over the past month, have you had these thoughts and had some intention of acting on them? Response not required due to responses to other questions. 5. Over the past month, have you started to work out or worked out the details of how to kill yourself? Response not required due to responses to other questions. 6. If yes, at any time in the past month did you intend to carry out this plan? Response not required due to responses to other questions. 7. In your lifetime, have you ever done anything, started to do anything, or prepared to do anything to end your life (for example, collected pills, obtained a gun, gave away valuables, went to the roof but didn't jump)? No 8. If YES, was this within the past 3 months? Response not required due to responses to other questions. Depression Screening: Perform PHQ-2 A PHQ-2 screen was performed. The score was 0 which is a negative screen for depression. Over the past two weeks, how often have you been bothered by the following problems? 1. Little interest or pleasure in doing things Not at all 2. Feeling down, depressed, or hopeless Not at all Alcohol Use Screen (AUDIT-C): Alcohol Screen: SCREEN FOR ALCOHOL (AUDIT-C) An alcohol screening test (AUDIT-C) was negative (score=1). 1. How often did you have a drink containing alcohol in the past year? Consider a drink to be a 12 ounce can or bottle of regular beer, 8 ounces of malt liquor, a 5 ounce glass of table wine, or a 1.5 ounce shot of liquor (like scotch, gin, or vodka). Monthly or less 2. How many drinks containing alcohol did you have on a typical day when you were drinking in the past year? One or two drinks 3. How often did you have six or more drinks on one occasion in the past year? Never RHS Screen: RHS Screen Session Format: Face to Face Environmental Check Screening was not completed at this time due to: Another adult present Homelessness/Food Insecurity Screen: The [place] reports the following: Within the past 12 months, you worried whether your food would run out before you got money to buy more. Never true Within the past 12 months, the food you bought just didn't last and you didn't have money to get more. 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
--- OUTSIDE RECORDS SUMMARY | 2024-11-16 10:45 | XMS_ITS ---
Author Name [facility] Organization [facility] [place] Address [address] [place] [id number] Care Team Providers Care Computer Customer Support Specialist Name Role Phone GILES FUENTES Primary Care [...] CAREMARK PRESCRIPT ION GEKEO Sep 14, 2014 [id number] [phone] FANY MALDONADO ON PATIENT CAREMARK PRESCRIPT ION SUSI ATKINSON Sep 14, 2014 [id number] FANY MALDONADO ON PATIENT CAREMARK PRESCRIPT ION Sep 14, 2014 [id number] [phone] ALLAN,MYR ON PATIENT GEHA (SECONDARY ) PREFERRED PROVIDER ORGANIZAT ION (PPO) HIGH OPTIO N MCR A&B Sep 14, 2005 [id number] ALLAN,MYR ON PATIENT GEHA (SECONDARY ) PREFERRED PROVIDER ORGANIZAT ION (PPO) GEHA CONNE CTION DENT Sep 14, 2005 [id number] ALLAN,MYR ON PATIENT GEHA FEHB PREFERRED PROVIDER ORGANIZAT ION (PPO) SUSI AL GOV Sep 14, 2005 [id number] ALTH [id number] ALLAN,MYR ON PATIENT GEHA FEHB PREFERRED PROVIDER ORGANIZAT ION (PPO) SUSI AL* Sep 14, 1989 [id number] ALTH [id number] [id number] ALLAN,MYR ON PATIENT GEHA-[facility] GEHA HIGH OPTIO N Sep 14, 2021 [id number] ALLAN,MYR ON PATIENT MEDICARE (WNR) MEDICARE (M) PART A May 15, 2000 PART A [id number] ALLAN,MYR ON PATIENT MEDICARE (WNR) MEDICARE (M) PART B May 15, 2000 PART B [id number] ALLAN,MYR ON PATIENT MEDICARE (WNR) MEDICARE (M) PART B May 15, 2000 PART B [id number] ALLAN,MYR ON PATIENT MEDICARE (WNR) MEDICARE (M) PART A May 15, 2000 PART A [id number] ALLAN,MYR ON PATIENT MEDICARE (WNR) MEDICARE (M) PART A May 15, 2000 PART A [id number] ALLAN,MYR ON PATIENT MEDICARE (WNR) MEDICARE (M) PART B May 15, 2000 PART B [id number] [phone] ALLAN,MYR ON PATIENT MEDICARE (WNR) MEDICARE (M) PART A May 15, 2000 PART A [id number] [id number] FANY MALDONADO ON PATIENT MEDICARE (WNR) MEDICARE (M) PART B May 15, 2000 PART B [id number] FANY MALDONADO ON PATIENT Selected Encounter This section includes the information on record at NH for the Encounter. 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 Date/Time Primary/Secondary Diagnosis Diagnosis Name Provider Source Dec 08, 2023 09:35 AM PRIMARY Other [facility] (current) drug therapy JOSE DE JESUS MONTGOM[facility] [place] [facility] [place] [facility] Plan of Treatment: Future Appointments (+ 6 months) and Future Tests (+/- 45 days) The Plan of Treatment section includes future care activities for the patient [facility] This section includes future appointments and future orders which are active, pending or scheduled. Future Appointments This section includes appointments that were scheduled to occur 6 months from the date of the Encounter, up to a maximum of 20 appointments. The data comes from all NH treatment facilities. Appointment Date/Time Appointment Type Appointme nt Facility Name Dec 24, 2023 10:00 AM AMBULATORY - RE[facility] MEDICIN E [facility] [place] [facility] Jan 12, 2024 02:00 PM AMBULATORY - MEDICINE [facility] Mar 24, 2024 01:30 PM AMBULATORY - MEDICINE [place] [facility] [place] [facility] Mar 24, 2024 02:00 PM AMBULATORY - MEDICINE [place] [facility] [place] [facility] Mar 31, 2024 11:00 AM AMBULATORY - REHAB MEDICIN E [facility] [place] [facility] Mar 31, 2024 01:00 PM AMBULATORY - REHAB MEDICIN E [facility] [place] [facility] May 04, 2024 01:00 PM AMBULATORY - REHAB MEDICIN E [facility] [place] [facility] Jun 03, 2024 11:30 [facility] Results[facility] +/- 30 days of the encounter This section includes the Chemistry and Hematology Lab Results on record with NH for the patient. Radiology Reports and Pathology Reports are provided separately, in subsequent sections. Lab Results This section contains the Chemistry/Hematology Results that were resulted 30 days before or 30 daysafter the date of the Encounter. Date/Time Source Result Type Result - Unit Interpretation Reference Range Comment Dec 24, 2023 11:22 AM [facility] VITAMIN B12 Specimen Type: SERUM No comment entered. Ordering Provider: GILES FUENTES Report Released Date/Time: Dec 08, 2023 01:18 PM Reporting Lab: [address] [address] Performing Lab: [address] [address] VITAMIN B12 443 pg/mL 200-900 Dec 24, 2023 11:22 AM [facility] LIPID PANEL, NON FASTING Specimen Type: SERUM No comment entered. Ordering Provider: GILES FUENTES Report Released Date/Time: Dec 08, 2023 01:18 PM Reporting Lab: [address] [address] Performing Lab: [address] [address] CHOLESTEROL 120 mg/dL TRIGLYCERIDE 84 mg/dL 0-150 LDL calculated 56 mg/dL 0-129 CHOL/HDL 2.6 HDL CHOLESTEROL 47 mg/dL 40-60 Dec 24, 2023 11:22 AM [facility] LIVER FUNCTION Specimen Type: SERUM No comment entered. Ordering Provider: GILES FUENTES Report Released Date/Time: Dec 08, 2023 01:18 PM Reporting Lab: [address] [address] Performing Lab: [address] [address] PROTEIN,TOTAL 7.3 g/dL 6.0-8.3 ALBUMIN 3.6 g/dL 3.5-5.0 ALKALINE PHOSPHATASE 170 U/L H 40-150 AST 25 U/L 5-34 ALT 34 U/L BILIRUBIN, TOTAL 0.7 mg/dL 0.2-1.2 Dec 24, 2023 11:22 AM [facility] MAGNESIUM Specimen Type: SERUM No comment entered. Ordering Provider: GILES FUENTES Report Released Date/Time: Dec 08, 2023 01:18 PM Reporting Lab: [facility] [address] [facility] [address] Performing Lab: [address] [address] MAGNESIUM 2.0 mg/dL 1.6-2.6 Dec 24, 2023 11:22 AM [facility] BASIC METABOLIC PANEL (non-fasting) Specimen Type: SERUM No comment entered. Ordering Provider: GILES FUENTES Report Released Date/Time: Dec 08, 2023 01:18 PM Reporting Lab: [facility] [address] [facility] [address] Performing Lab: [facility] [address] [facility] [address] UREA NITROGEN 30 mg/dL H 7-25 GLUCOSE 88 mg/dL 65-100 SODIUM 141 mmol/L 135-145 POTASSIUM 4.7 mmol/L 3.5-5.0 CHLORIDE 106 mmol/L 100-110 CO2 26 meq/L 20-30 CREATININE, Serum 0.84 mg/dL 0.50-1.40 eGFR(CKD-EPI 2020) 83 mL/min >60 Dec 24, 2023 11:21 AM [facility] TSH Specimen Type: SERUM No comment entered. Ordering Provider: GILES FUENTES Report Released Date/Time: Oct 28, 2023 12:29 PM Reporting Lab: [facility] [address] [facility] [address] Performing Lab: [address] [address] TSH 1.40 u[IU]/mL 0.35-5.00 Dec 24, 2023 11:21 [facility] HEMOGLOBIN A1C PANEL Specimen Type: BLOOD Comment: Values obtained from A1C measurements can vary. For atypical A1C assays, a reported value of 7.0 could actually be between 6.72 and 7.28 if measured by a reference method. A reported value of 9.0 could actually be between 8.73 and 9.27. Ref: http://www.ngs p.org/CAPdata. asp Ordering Provider: GILES FUENTES Report Released Date/Time: Oct 06, 2023 10:49 AM Reporting Lab: [facility] [address] [facility] [address] Performing Lab: [facility] [address] [facility] [address] HEMOGLOBIN A1C 5.7 H 4.0-5.6 Social History: Smoking Status (Most current) and Tobacco Use (All prior to encounter date) This section includes the most current, and the historical, smoking and tobacco- related health factors from the NH facility where the Encounter took place. Current Smoking Status This section includes the most current smoking, or tobacco-related health factor, from the NH facility where the Encounter took place. Date/Time Current Smoking Status Comment Facil ity Sep 02, 2023 05:30 PM VA-TOBACCO [facility] Tobacco Use History This section includes a history of the smoking, or tobacco-related health factors, that were collected on or before the date of the Encounter. The data comes from the NH facility where the Encounter took place. Date/Time Smoking Status/Tobacco Use Comment F acility Sep 02, 2023 05:30 PM VA-TOBACCO QUIT 15 YRS OR MORE [facility] [place] [facility] Apr 24, 2022 01:00 PM VA-TOBACCO FORMER USER [facility] [place] [facility] Apr 24, 2022 01:00 PM VA-TOBACCO QUIT 15 YRS OR MORE [facility] [place] [facility] Dec 05, 2021 02:00 PM VA-TOBACCO USE DEC LINED TO ANSWER [facility] [place] [facility] Nov 24, 2021 04:05 PM VA-TOBACCO USE DEC LINED TO ANSWER [facility] [place] [facility] Sep 20, 2020 08:40 AM VA-TOBACCO NEVER USED [facility] Advance Directives: All historical and current Section Date Range: From patient's date of to the date document was created. This section includes ALL of a patient's completed or amended NH Advance and Rescinded Directives. The entries below indicate that a directive exists for the patient, but an actual copy is not included with this document. The data comes from all NH facilities. Date Advance Directives Provider Source Nov 11, 2016 ADVANCE DIRECTIVE ELROY CHÁVEZ [facility] Jul 08, 2006 ADVANCE DIRECTIVE CHAPARRO DICK [facility] Encounter Notes: All associated encounter notes This section contains the clinical notes associated to the Encounter. Date/Time Encounter Note(s) Provider Source Dec 08, 2023 08:19 AM [facility] MEDICATION MG T NOTE: LOCAL TITLE: [facility] PHARMACY MEDICATION REVIEW STANDARD TITLE: [facility] MEDICATION MGT NOTE DATE OF NOTE: DEC 08, 2023@08:19 ENTRY DATE: DEC 08, 2023@08:19:47 AUTHOR: JOSE DE JESUS MONTGOMERY COSIGNER: URGENCY: STATUS: COMPLETED [facility] PHARMACY MEDICATION REVIEW Has ADDENDA Leonel Maldonado is an 88 year-old WHITE MALE. PMH (per problem list): HTN, HLD, DM, CAD s/p bare metal [...] ONE TABLET BY MOUTH ONCE ACTIVE DAILY IN PLACE OF SITAGLIPTIN * NEW 3) AMLODIPINE BESYLATE 10MG TAB TAKE ONE TABLET BY MOUTH ACTIVE ONCE DAILY FOR BLOOD PRESSURE/HEART, DO NOT TAKE WITH GRAPEFRUIT JUICE 4) ATORVASTATIN CALCIUM 80MG TAB TAKE ONE TABLET BY ACTIVE MOUTH ONCE DAILY FOR CHOLESTEROL 5) BRIMONIDINE 0.2%/BRINZOLAMID 1% OPH SUSP INSTILL 1 HOLD DROP INTO EACH EYE TWICE DAILY 6) CHOLECALCIF 25MCG (D3-1,000UNIT) TAB TAKE ONE TABLET ACTIVE BY MOUTH ONCE DAILY FOR VITAMIN SUPPLEMENTATION 7) DOCUSATE NA 100MG CAP TAKE ONE CAPSULE BY MOUTH TWICE ACTIVE DAILY NEEDED TO SOFTEN STOOL * NEW 8) EPLERENONE 25MG TAB TAKE ONE TABLET BY MOUTH ONCE ACTIVE DAILY FOR HIGH BLOOD PRESSURE 9) KETOCONAZOLE 2% SHAMPOO SHAMPOO SMALL AMOUNT ACTIVE TOPICALLY ONCE DAILY * NEW 10) LATANOPROST 0.005% OPH SOLN INSTILL 1 DROP INTO EACH ACTIVE EYE AT BEDTIME * NEW 11) LOSARTAN 100MG TAB TAKE ONE TABLET BY MOUTH ONCE ACTIVE DAILY FOR BLOOD PRESSURE/HEART * DOSE INCREASE from 50mg daily 12) MULTIVIT/OPHTH AREDS2/LUTE/ZEAX CAP/TAB TAKE 1 ACTIVE CAPSULE BY MOUTH TWICE DAILY IN THE MORNING AND EVENING, WITH FOOD 13) PANTOPRAZOLE NA 40MG EC TAB TAKE ONE TABLET BY MOUTH ACTIVE EVERY OTHER DAY FOR EXCESSIVE PRODUCTION OF STOMACH ACID - not taking? 14) POLYETHYLENE GLYCOL 3350 ORAL PWDR TAKE 17 GRAMS(FILL ACTIVE CAP TO 17GM LINE) BY MOUTH ONCE DAILY NEEDED FOR CONSTIPATION [MIX WITH 4 TO 8OZ. OF BEVERAGE] * NEW 15) PRIMIDONE 50MG TAB TAKE ONE TABLET BY MOUTH THREE ACTIVE TIMES A DAY 16) PRODIGY NO CODE (GLUCOSE) TEST STRIP USE 1 STRIP TO ACTIVE TEST BLOOD SUGARS TWICE A WEEK NEEDED 17) TIMOLOL MALEATE 0.5% OPH GEL APPLY 1 DROP INTO EACH ACTIVE EYE TWICE DAILY 18) TIMOLOL MALEATE 0.5% OPH SOLN INSTILL 1 DROP INTO ACTIVE EACH EYE TWICE DAILY * NEW 19) TORSEMIDE 20MG TAB TAKE ONE TABLET BY MOUTH ONCE ACTIVE DAILY * taking 2-3 times weekly per the 11/12/23 [facility] RN note Active Non-VA Medications Status 1) Non-VA ASPIRIN 81MG EC TAB 81MG BY MOUTH ONCE DAILY ACTIVE 2) Non-VA FLUTICASONE/UMECLID/VILANT (TRELEGY 200) ACTIVE INHL,ORAL BY MOUTH 3) Non-VA OXYGEN MISCELLANEOUS 2 LITERS VIA NC WITH ACTIVE EXERTION DIRECTED NEEDED THE ABOVE MEDICATIONS WERE REVIEWED FOR: ADR, potential incompatibilities, compliance, duplication of therapy, and indications on problem list Other Rx/OTC/Herbals: ammonium lactate (exp) High Alert Meds: long-term pantoprazole, alogliptin Look Alike/Sound Alike Meds:acetaminophen, atorvastatin Duplication of Therapy: timolol maleate (eye drops and eye gel) Excessive Duration: ?pantoprazole Vitals: ======= Ht: 70 in [177.8 cm] (08/23/2019 10:24) Wt: 196 lb [88.90 kg] (11/12/2023 16:29) BMI: 28.2 BP: 132/70 (11/12/2023 16:29) HR: 68 (11/12/2023 16:29) Pain: 0 (11/12/2023 16:29) Labs: ===== SERUM Na K BUN SCr 08/31/23 138 4.2 27 H 0.81 eGFR (CKD-EPI 2020): 85 (08/31/23) CrCl (C&G, SCr 0.81, adj BW): ~71 mL/min M mg/dL (11/20/22) SERUM AST ALT 11/14/21 24 30 BLOOD WBC Hgb Hct MCV Plt 08/31/23 8.07 13.6 41.8 94.8 221 A1c: 5.8 % (08/31/23) TSH: 0.97 uIU/mL (03/27/21) Vit B12: 559 pg/mL (03/12/22) SERUM LDL HDL TG Tot Chol 11/14/21 69 46 105 136 Vit D: 41 ng/mL (08/31/23) Ca: 9 mg/dL (08/31/23) Alb: 4 g/dL (11/14/21) ASSESSMENT: In the last 90 days: - No falls/hospitalizations/infect ions noted - Per the 10/02/23 [facility] RN note, metformin was discontinued by [facility] PCP given last A1c well WNL in the setting of advanced age. - Per the 10/28/23 [facility] RN note, 's non-VA provider started him on sitagliptin, but requesting through the [facility] as the Rx was $200. Reporting intermittent constipation he attributes to torsemide. States he does not think he needs pantoprazole and plans to trial off of agent. Alternate DPP-4 inhibitor (formulary-preferred alogliptin) ordered through [facility] and bowel regimen added. - Per the 11/12/23 [facility] RN note, is currently taking torsemide 2-3 times a week. Non-VA provider is aware. INTERVENTIONS/SUGGESTIONS: 1. Patient's medications were reviewed for [...] may decrease serum concentration of eplerenone * amlodipine/torsemide/eplereno ne/losartan: concurrent use may increase risk of hypotension; continue to monitor vitals at future visits 2. Patient has an estimated creatinine clearance of ~71 mL/min. LFTs WNL. Current medications are dosed appropriately for the patient's renal and hepatic function. 3. Medications reviewed to determine if regimen could contribute to falls. Several agents on 's active medication list may increase fall risk including amlodipine, atorvastatin, eplerenone, losartan, pantoprazole, primidone, and torsemide. Also, aspirin use may increase bleeding risk should a fall occur. Last documented fall occurred on 05/30/23 in the bathroom which attributed to his legs giving out. Resulted in neck pain, but was found to have a normal cervical X-ray during ER eval. To reduce the risk for falls, educate pt re: safe postural transitions and signs/sx of orthostatic hypotension. Also, monitor for dizziness, drowsiness, ataxia, hypotension, dehydration, and muscle pain/weakness given current medication regimen. Also of note, long-term use of a PPI may increase risk of fracture should a fall occur. 4. All medical conditions have appropriate medication treatment. * HTN - on max dose CCB, max dose ARB, mineralocorticoid receptor antagonist, and loop diuretic; BPs reasonably well-controlled; taking torsemide 2-3 times weekly per the 11/12/23 [facility] RN note which differs from Rx instructions to take daily * COPD - on non-VA ICS/LAMA/LABA, may benefit from PRN JUANCARLOS, followed by non-VA Pulmonology, uses oxygen at night only * DM - on alogliptin, last A1c 5.8%; metformin discontinued given A1c well WNL in the setting of advanced age, comorbidities, and fall risk, repeat A1c ordered, last Podiatry f/u Sep 2023, last Optometry f/u Jun 2023 - no retinopathy or macular edema 5. All medications have an appropriate indication and supporting clinical symptoms. 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 Adherence Concerns: no concerns at this time 7. Health Maintenance: > Immunizations: [facility] is due for the following immunizations per chart review and CDC recommendations: * PCV20 (shared decision making) > Tobacco/EtOH: * Please continue to periodically reassess alcohol intake and encourage minimal use given advanced age and fall risk > Bladder/Bowel: * Inquire about incontinence and severity biannually. > Bone Health: * last vit D WNL on supplementation, hx of deficiency in Dec 2021 * last Ca from Aug 2023 WNL, not on supplementation > Aspirin: * on low-dose aspirin, hx of ASCVD 8. Patient with zero refills on: polyethylene glycol 9. Continue to review quarterly. Recommendations: - Per the 10/28/23 [facility] RN note, did not think he needed pantoprazole with plan to trial off agent. Please discontinue Rx if he has been tolerating off of agent. Of note, discontinuation would be appropriate to reduce pill burden and associated risks of long-term PPI use (fracture, infection, and Mg/vitamin B12 deficiency) given use for GERD. - [facility]'s Rx for ammonium lactate lotion recently . Please assess whether he needs a new order for dry skin. - Per chart review, it appears andrés missed his Ophthalmology appt in Sep 2023. Would encourage him to schedule f/u with clinic. - Please add an updated lipid panel, LFTs, vit B12, and Mg to pending labwork orders. The details of this review were shared with the IDT in order to assist in creating a care plan designed to provide services focused on the health and well being of the patient. Time Spent: 60 min /esthela/ JOSE DE JESUS MONTGOMERY [facility] Clinical Pharmacist Practitioner Signed: 12/08/2023 09:38 Receipt Acknowledged By: 12/08/2023 12:37 /esthela/ GILES FUENTES [facility] NURSE PRACTITIONER 12/08/2023 11:24 /esthela/ Doris Mcnair RN [facility] supervisor dry paste 12/08/2023 ADDENDUM STATUS: COMPLETED Will continue to follow every 6-12 months for routine medical care and as needed for changes in condition. /esthela/ GILES FUENTES [facility] NURSE PRACTITIONER Signed: 12/08/2023 12:38 [facility]
--- OUTSIDE RECORDS SUMMARY | 2024-11-16 10:45 | XMS_ITS ---
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 Name Role Phone GILES FUENTES Primary Care [...] CAREMARK PRESCRIPT ION GEKEO Sep 14, 2014 [id number] [phone] FANY MALDONADO ON PATIENT CAREMARK PRESCRIPT ION SUSI ATKINSON Sep 14, 2014 [id number] [id number] FANY MALDONADO ON PATIENT CAREMARK PRESCRIPT ION Sep 14, 2014 [id number] [phone] ALLAN,MYR ON PATIENT GEHA (SECONDARY ) PREFERRED PROVIDER ORGANIZAT ION (PPO) HIGH OPTIO N MCR A&B Sep 14, 2005 [id number] [phone] [id number] [phone] ALLAN,MYR ON PATIENT GEHA (SECONDARY ) PREFERRED PROVIDER ORGANIZAT ION (PPO) GEHA CONNE CTION DENT Sep 14, 2005 [id number] [id number] [phone] ALLAN,MYR ON PATIENT GEHA FEHB PREFERRED PROVIDER ORGANIZAT ION (PPO) SUSI AL GOV Sep 14, 2005 [id number] [id number] ALLAN,MYR ON PATIENT GEHA FEHB PREFERRED PROVIDER ORGANIZAT ION (PPO) SUSI AL* Sep 14, 1989 [id number] ALTH [id number] [id number] ALLAN,MYR ON PATIENT GEHA-BEHAV [facility] GEHA HIGH OPTIO N Sep 14, 2021 [id number] [phone] ALLAN,MYR ON PATIENT MEDICARE (WNR) MEDICARE (M) PART B May 15, 2000 PART B [id number] ALLAN,MYR ON PATIENT MEDICARE (WNR) MEDICARE (M) PART A May 15, 2000 PART A [id number] ALLAN,MYR ON PATIENT MEDICARE (WNR) MEDICARE (M) PART B May 15, 2000 PART B [id number] ALLAN,MYR ON PATIENT MEDICARE (WNR) MEDICARE (M) PART A May 15, 2000 PART A [id number] ALLAN,MYR ON PATIENT MEDICARE (WNR) MEDICARE (M) PART A May 15, 2000 PART A [id number] ALLAN,MYR ON PATIENT MEDICARE (WNR) MEDICARE (M) PART B May 15, 2000 PART B [id number] ALLAN,MYR ON PATIENT MEDICARE (WNR) MEDICARE (M) PART A May 15, 2000 PART A [id number] FANY MALDONADO ON PATIENT MEDICARE (WNR) MEDICARE (M) PART B May 15, 2000 PART B [id number] FANY MALDONADO ON PATIENT Selected Encounter This section includes the information on record at [place] for the Encounter. 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 Date/Time Primary/Secondary Diagnosis Diagnosis Name Provider Source Aug 17, 2024 05:12 PM PRIMARY Other prison (current) drug therapy JOSE DE JESUS MONTGOMERY [facility] Plan of Treatment: Future Appointments (+ 6 months) and Future Tests (+/- 45 days) The Plan of Treatment section includes future care activities for the patient from all [place] [facility]. This section includes future appointments and future orders which are active, pending or scheduled. Future Appointments This section includes appointments that were scheduled to occur 6 months from the date of the Encounter, up to a maximum of 20 appointments. The data comes from all [facility]. Appointment Date/Time Appointment Type Appointme nt Facility Name Sep 26, 2024 10:00 AM AMBULATORY - REHAB MEDICIN E [facility] Oct 21, 2024 11:30 AM [facility] Active, Pending, and Scheduled Orders This section includes a listing of several types of active, pending, and scheduled orders, including clinic medications orders, diagnostic test orders, procedure orders and consult orders; where the start date of the order is 45 days before the date of the Encounter or 45 days after the date of theEncounter. The data comes from all [facility]. Test Date/Time Test Type Test Details Facility Name Aug 30, 2024 12:00 AM Laboratory - Chemi stry Order BASIC METABOLIC PANEL (non-fasting) BLOOD (SST-SERUM) SP [facility] Aug 30, 2024 12:00 AM Laboratory - Chemi stry Order BNP (Natriuretic Peptide Brain) BLOOD (LAV-PLASMA) [facility] Social History: Smoking Status (Most current) and Tobacco Use (All prior to encounter date) This section includes the most current, and the historical, smoking and tobacco- related health factors from the [place] facility where the Encounter took place. Current Smoking Status This section includes the most current smoking, or tobacco-related health factor, from the [place] facility where the Encounter took place. Date/Time Current Smoking Status Comment Facil ity Sep 02, 2023 05:30 PM VA-TOBACCO FORMER USER [facility] Tobacco Use History This section includes a history of the smoking, or tobacco-related health factors, that were collected on or before the date of the Encounter. The data comes from the [place] facility where the Encounter took place. Date/Time Smoking Status/Tobacco Use Comment F acility Sep 02, 2023 05:30 PM VA-TOBACCO QUIT 15 YRS OR MORE [facility] Apr 24, 2022 01:00 PM [facility] Apr 24, 2022 01:00 PM VA-TOBACCO QUIT 15 YRS OR MORE [facility] Dec 05, 2021 02:00 PM VA-TOBACCO USE DEC LINED TO ANSWER [facility] Nov 24, 2021 04:05 PM VA-TOBACCO USE DEC LINED TO ANSWER [facility] Sep 20, 2020 08:40 AM VA-TOBACCO NEVER USED [facility] Advance Directives: All historical and current Section Date Range: From patient's date of to the date document was created. This section includes ALL of a patient's completed or amended [place] Advance and Rescinded Directives. The entries below indicate that a directive exists for the patient, but an actual copy is not included with this document. The data comes from all [place] facilities. Date Advance Directives Provider Source Nov 11, 2016 ADVANCE DIRECTIVE ELROY CHÁVEZ [facility] Jul 08, 2006 ADVANCE DIRECTIVE [facility] Encounter Notes: All associated encounter notes This section contains the clinical notes associated to the Encounter. Date/Time Encounter Note(s) Provider Source Aug 17, 2024 03:13 PM [facility] MEDICATION MG T NOTE: LOCAL TITLE: [facility] PHARMACY MEDICATION REVIEW STANDARD TITLE: [facility] MEDICATION MGT NOTE DATE OF NOTE: AUG 17, 2024@15:13 ENTRY DATE: AUG 17, 2024@15:13:42 AUTHOR: JOSE DE JESUS MONTGOMERY COSIGNER: URGENCY: STATUS: COMPLETED Leonel Maldonado is an 89 year-old WHITE MALE. PMH [...] ACTIVE DAILY FOR HIGH BLOOD PRESSURE 10) KETOCONAZOLE 2% SHAMPOO SHAMPOO SMALL AMOUNT ACTIVE TOPICALLY ONCE DAILY 11) LATANOPROST 0.005% OPH SOLN INSTILL 1 DROP INTO EACH ACTIVE EYE AT BEDTIME 12) LOSARTAN 100MG TAB TAKE ONE TABLET BY MOUTH ONCE ACTIVE DAILY FOR BLOOD PRESSURE/HEART 13) MULTIVIT/OPHTH AREDS2/LUTE/ZEAX CAP/TAB TAKE 1 ACTIVE CAPSULE BY MOUTH TWICE DAILY IN THE MORNING AND EVENING, WITH FOOD 14) PRIMIDONE 50MG TAB TAKE ONE TABLET BY MOUTH THREE ACTIVE TIMES A DAY 15) TORSEMIDE 20MG TAB TAKE ONE TABLET BY MOUTH ONCE ACTIVE DAILY Active Non-VA Medications Status 1) Non-VA FLUTICASONE/UMECLID/VILANT (TRELEGY 200) ACTIVE INHL,ORAL BY MOUTH 2) Non-VA OXYGEN MISCELLANEOUS 2 LITERS VIA NC AT NIGHT ACTIVE DIRECTED NEEDED for SOB/wheezing THE ABOVE MEDICATIONS WERE REVIEWED FOR: ADR, potential incompatibilities, compliance, duplication of therapy, and indications on problem list Other Rx/OTC/Herbals: hydrophilic ointment (exp) High Alert Meds: none Look Alike/Sound Alike Meds: acetaminophen, atorvastatin, carvedilol Duplication of Therapy: none Excessive Duration: none Vitals: ======= Ht: 70 in [177.8 cm] (08/23/2019 10:24) Wt: 202 lb [91.63 kg] (08/02/2024 15:00) BMI: 29.0 BP: 156/80 (08/02/2024 15:00) HR: 64 (08/02/2024 15:00) Pain: 0 (08/02/2024 15:00) Labs: ===== SERUM Na K BUN SCr 12/24/23 141 4.7 30 H 0.84 08/31/23 138 4.2 27 H 0.81 eGFR (CKD-EPI 2020): 83 (12/24/23) CrCl (C&G, SCr 0.84, adj BW): ~68 mL/min M mg/dL (12/24/23) SERUM AST ALT 12/24/23 25 34 BLOOD WBC Hgb Hct MCV Plt 08/31/23 8.07 13.6 41.8 94.8 221 A1c: 5.7 % (12/24/23) 5.8 % (08/31/23) TSH: 1.4 uIU/mL (12/24/23) Vit B12: 443 pg/mL (12/24/23) SERUM LDL HDL TG Tot Chol 12/24/23 56 47 84 120 Vit D: 41 ng/mL (08/31/23) Ca: 9 mg/dL (08/31/23) Alb: 3.6 g/dL (12/24/23) ASSESSMENT: In the last 90 days: - No falls/hospitalizations/infe ctions noted - Per the 06/22/24 [facility] RN note, has healed well from circumcision procedure, but urine stream is off to the side so has to sit to void. - went to his non-VA Cardiology f/u visit on 06/24/24. No medication changes. INTERVENTIONS/SUGGESTIONS: 1. Patient's medications were reviewed for [...] risk of hypokalemia; last K WNL * amlodipine/torsemide/eplere none/losartan/carvedilol: concurrent use may increase risk of hypotension; [...] dose CCB, max dose ARB, aldosterone antagonist, low-dose beta cassia, and loop diuretic; recent BPs reasonably well-controlled with last reading higher than normal (156/80) with HRs 54-64; continue to monitor for bradycardia and hypertension; if BPs become consistently elevated could increase dose of eplerenone, would not increase carvedilol dosing given lower HRs; last seen by non-VA Cardiology in Jun 2024 with plan for 6 month f/u) * COPD - on non-VA ICS/LAMA/LABA, may benefit from PRN JUANCARLOS, followed by non-VA Pulmonology, uses oxygen at night only * DM - alogliptin previously stopped given last A1c 5.7%; metformin previously discontinued given A1c well WNL in the setting of advanced age, comorbidities, and fall risk, last Podiatry f/u in May 2024 (upcoming f/u in Oct 2024), last Optometry f/u 03/24/24 - no retinopathy or macular edema * GERD without esophagitis - pantoprazole previously discontinued as was no longer taking; no [...] Concerns: - [facility] RN pre-fills meds * PRN docusate - filled in Oct 2023 * latanoprost - last filled 04/14/24, 11/27/23 (~90-day supply) 7. Health Maintenance: > Immunizations: is due for the following immunizations per chart review and CDC recommendations: * PCV20 (shared decision making, reasonable to offer in this given pulmonary PMH) > Tobacco/EtOH: * Please continue to periodically reassess alcohol use and encourage minimal intake given older age and history of falls. > Bladder/Bowel: * Inquire about incontinence and severity biannually. > Bone Health: * last vit D WNL on supplementation, hx of deficiency in Dec 2021 * last Ca WNL, not on supplementation > Aspirin: * on low-dose aspirin, hx of ASCVD 8. Patient with zero refills on: carvedilol, atorvastatin, losartan, primidone, eplerenone 9. Continue to review quarterly. Recommendations: - For your awareness, will likely be due for a new supply of carvedilol in the next 1-2 weeks and his current Rx is out of refills. Please renew if plan is to continue. - [place] remains on non-VA Trelegy for COPD as recommended by non-VA Pulmonology specialist. Recommend ordering an albuterol MDI for PRN use should require for acute SOB/wheezing symptoms. - Recommend offering the PCV20 (pneumococcal) vaccine during next scheduled visit. The CDC offers this option for patients over 65 years old who received their PCV13 vaccine plus the PPSV23 vaccine at age 65 or older 5 or more years ago to provide additional protection if they are at increased risk. Of note, this has a significant pulmonary PMH (former smoker, COPD, asbestosis, history of tuberculosis). * Of note, if is not interested this does not need to be reassessed as it is not a requirement through the CDC; the additional vaccine is suggested by the CDC based on shared clinical decision making. The details of this review were shared with the IDT in order to assist in creating a care plan designed to provide services focused on the health and well being of the patient. Time Spent: 45 min /esthela/ JOSE DE JESUS MONTGOMERY [facility] Clinical Pharmacist Practitioner Signed: 08/17/2024 17:33 Receipt Acknowledged By: 08/18/2024 07:44 /esthela/ GILES FUENTES [facility] NURSE PRACTITIONER 08/18/2024 12:13 /esthela/ Doris Mcnair RN [facility] electrical accessories assembler JOSE DE JESUS MONTGOMERY [facility]
--- OUTSIDE RECORDS SUMMARY | 2024-11-16 10:45 | XMS_ITS | Continuity of Care Document ---
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 It does not include entries that were removed or entered in error. Problem Status Onset Date Problem Type Date of Resolution Comments Source Coronary artery disease Active 011 Condition Aug 19, 2022 Entered By: LIZBETH NICOLE Comment: Bare metal stents x 2/cardiac cathNov 2010 Entered By: BARB WILLARD Comment: small sub-endoMar 2021 Entered By: TANISHA CADET Comment: Dr Archibald PVCMar 2021 Entered By: TANISHA CADET Comment: De 2021 Entered By: LIZBETH NICOLE Comment: 06/03 echo mild LVH, grade 1 diastolic dysfunction, mildly dialated aortic root 4.1 cm [facility] [place] [facility] Helicobacter Pylori (H. 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) Active Condition [facility] [place] [facility] Chronic obstructive lung disease (SNOMED CT 92305135) Active Condition Dec 07, 2006 Entered By: ORAL ORDONEZ Comment: FU with Dr Hernandes [facility] [place] [facility] Chronic Obstructive Pulmonary Disease Active Condition [facility] Dependence on nocturnal oxygen therapy Active Condition [place] Diabetes mellitus Active Condition [facility] Essential hypertension (SNOMED CT 92513975) Active Condition Nov 23, 2008 Entered By: ORAL ORDONEZ Comment: Dr Garcia is private primary [facility] [place] [facility] Ex-smoker Active Condition [place] Exudative age-related macular degeneration (SNOMED CT 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 Randolph Campuzano at [facility] for L eye prob [facility] Legal blindness, as defined in [place] Active Condition [facility] Narrow angle glaucoma Active Condition [place] Obesity Active Condition [facility] [place] [facility] Osteoarthritis (SNOMED CT 539811206) Active Condition Dec 08, 2005 Entered By: ORAL ORDONEZ Comment: knees and fingers [facility] [place] [facility] Osteoarthrosis, unspecified whether generalized or localized, involving unspecif Active Condition [facility] Personal History of Colonic Polyps Active Condition Dec 07 Entered By: ORAL ORDONEZ Comment: Dr Velasquez Colonosocpy Jun 03 no polyps EGD same dayNov 29, 2007 Entered By: ORAL ORDONEZ Comment: Hiatial hernia on UGI 06/17/07Nov 29, 2007 Entered By: ORAL ORDONEZ Comment: Tubular adenoma 12/15 [facility] [place] [facility] Prostate cancer (SNOMED CT 964376286) Active Condition Dec 08, 2005 Entered By: ORAL ORDONEZ Comment: prostatectomy 02/2004 Dr Martinez 2021 Entered By: TANISHA CADET Comment: last urology appt 12/2020, Dr. Botello PSA 1.0, tx recommended, f/u 18 monthsJul 2023 Entered By: GILES FUENTES Comment: 02/2024, PET scan due to PSA>20, localized area of recurrent prostate CA. Opted for monitoring only, f/u 6 mos [facility] [place] [facility] Tremor Active Condition Nov 19 Entered By: LIZBETH NICOLE Comment: Benign familiar tremor on primodone per neuro seen 07/05 f/u 02/03 [place] Under care of multiple providers Active Condition Nov 19 Entered By: LIZBETH NICOLE Comment: neuro: Dr. Babatunde [facility] Hyperglycemia Inactive Condition 08/19/2022 [facility] [place] [facility] Diagnosis: ICD-10-CM I10 Essential (primary) hypertension Active Diagnosis [facility] [place] [facility] Diagnosis: ICD-10-CM 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 Diagnosis [facility] Diagnosis: ICD-10-CM J44.89 Other specified chronic obstructive pulmonary disease Active Diagnosis [facility] [place] [facility] Diagnosis: ICD-10-CM H54.8 Legal blindness, as defined in [place] Active Diagnosis [facility] [place] [facility] Diagnosis: ICD-10-CM Z99.81 Dependence on supplemental oxygen Active Diagnosis [facility] [place] [facility] Diagnosis: ICD-10-CM I25.9 Chronic ischemic heart disease, unspecified Active Diagnosis [facility] [place] [facility] Diagnosis: ICD-10-CM Z65.9 Problem related to unspecified psychosocial circumstances Active Diagnosis [facility] [place] [facility] Diagnosis: ICD-10-CM Z79.899 Other terminal manager (current) drug therapy Active Diagnosis [facility] Diagnosis: ICD-10-CM I25.10 Athscl heart disease of [place] coronary artery w/o ang pctrs Active Diagnosis [facility] Diagnosis: ICD-10-CM E11.9 Type 2 diabetes mellitus without complications Active Diagnosis [facility] Diagnosis: ICD-10-CM H40.033 Anatomical narrow angle, bilateral Active Diagnosis [facility] Diagnosis: ICD-10-CM E66.3 Overweight Active Diagnosis [facility] Diagnosis: ICD-10-CM Z91.148 Patient's other noncompl with meds regimen for other reason Active Diagnosis [facility] Diagnosis: ICD-10-CM R25.1 Tremor, unspecified Active Diagnosis [facility] Diagnosis: ICD-10-CM R26.9 Unspecified abnormalities of gait and mobility Active Diagnosis [facility] Diagnosis: ICD-10-CM Z04.89 Encounter for examination and observation for oth reasons Active Diagnosis [facility] Diagnosis: ICD-10-CM 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 Medication Details Route Status Patient Instructions Prescription Expires Prescription Number Last Dispense Date Ordering Provider Order Date Order Qty Source ACETAMINOPH EN 500MG TAB TAKE TWO TABLETS BY MOUTH THREE TIMES DAILY NEEDED FOR PAIN ORAL 09/15/2024 [id number] RIN FUENTES 2023 200 [facility] ALBUTEROL 90MCG/ACTUA T (CFC-F) INHL,ORAL,8 .5GM DOSE COUNTER INHALE 1 TO 2 PUFFS BY MOUTH FOUR TIMES DAILY NEEDED FOR BRONCHOS PASM RESPIR ATORY (INHAL ATION) ACTIVE 09/01/2025 [id number] RIN FUENTES 2023 3 [facility] ALOGLIPTIN 25MG TAB TAKE ONE TABLET BY MOUTH ONCE DAILY IN PLACE OF SITAGLIP TIN ORAL DISCONT INUED 11/06/2024 [id number] RIN FUENTES 2023 90 [facility] AMLODIPINE BESYLATE 10MG TAB TAKE ONE TABLET BY MOUTH ONCE DAILY FOR BLOOD PRESSURE /HEART, DO NOT TAKE WITH GRAPEFRU IT JUICE ORAL ACTIVE 03/30/2025 [id number] 5 RIN FUENTES 2023 90 [facility] AMLODIPINE BESYLATE 10MG TAB TAKE ONE TABLET BY MOUTH ONCE DAILY FOR BLOOD PRESSURE /HEART, DO NOT TAKE WITH GRAPEFRU IT JUICE ORAL DISCONT INUED 04/20/2024 [id number] 4 RIN FUENTES 2022 90 [facility] ASPIRIN 81MG TAB,EC TAKE ONE TABLET BY MOUTH ONCE DAILY TO PREVENT STROKE/H EART ATTACK ORAL ACTIVE 02/10/2025 [id number] RIN FUENTES 2023 120 [facility] ATORVASTATI N CA 80MG TAB TAKE ONE TABLET BY MOUTH ONCE DAILY FOR CHOLESTE ROL ORAL ACTIVE 08/31/2025 [id number] 5 RIN FUENTES 2024 90 [facility] ATORVASTATI N CA 80MG TAB TAKE ONE TABLET BY MOUTH ONCE DAILY FOR CHOLESTE ROL ORAL DISCONT INUED 10/01/2024 [id number] 4 RIN FUENTES 2023 90 [facility] BRIMONIDINE 0.2%/BRINZO LAMIDE 1% SUSP,OPH INSTILL 1 DROP INTO EACH EYE TWICE DAILY OPHTHA LMIC ACTIVE 10/06/2025 [id number] 5 JUSKO,AND REW 2024 8 [facility] BRIMONIDINE 0.2%/BRINZO LAMIDE 1% SUSP,OPH INSTILL 1 DROP INTO EACH EYE TWICE DAILY OPHTHA LMIC DISCONT INUED 11/26/2024 [id number] 4 JUSKO,AND REW 2023 24 [facility] [place] BRIMONIDINE 0.2%/BRINZO LAMIDE 1% SUSP,OPH INSTILL 1 DROP INTO EACH EYE TWICE DAILY OPHTHA LMIC DISCONT INUED 09/01/2024 [id number] 4 JUSKO,AND REW 2022 8 [facility] BUDESONIDE 160/GLYCOPY R 9/FORMOTER 4.8MCG/ACT INHL,ORAL,1 0.7GM INHALE 2 INHALATI ONS BY MOUTH TWICE DAILY FOR BRONCHOS PASM PREVENTI ON WITH COPD -RINSE MOUTH AFTER USE RESPIR ATORY (INHAL ATION) ACTIVE 09/03/2025 [id number] RIN FUENTES 2023 3 [facility] CARBOXYMETH YLCELLULOSE NA 1% GEL,OPH APPLY 1 DROP INTO EACH EYE TWICE DAILY FOR DRY EYE OPHTHA LMIC ACTIVE 11/15/2025 [id number] 5 RIN FUENTES 2024 15 [facility] CARVEDILOL 3.125MG TAB TAKE ONE TABLET BY MOUTH TWICE DAILY FOR HIGH BLOOD PRESSURE ORAL ACTIVE 08/19/2025 [id number] 5 RIN FUENTES 2023 180 [facility] CARVEDILOL 3.125MG TAB TAKE ONE TABLET BY MOUTH TWICE DAILY FOR HIGH BLOOD PRESSURE ORAL DISCONT INUED 03/09/2025 [id number] 4 [facility]23 180 [facility] CHOLECALCIF TONY 25MCG (1,000UNIT) TAB TAKE ONE TABLET BY MOUTH ONCE DAILY FOR VITAMIN SUPPLEME NTATION ORAL ACTIVE 08/16/2025 [id number] 5 RIN FUENTES 2023 90 [facility] CHOLECALCIF TONY 25MCG (1,000UNIT) TAB TAKE ONE TABLET BY MOUTH ONCE DAILY FOR VITAMIN SUPPLEME NTATION ORAL DISCONT INUED 08/04/2024 [id number] 4 RIN FUENTES 2022 90 [facility] DOCUSATE NA 100MG CAP TAKE ONE CAPSULE BY MOUTH TWICE DAILY NEEDED TO SOFTEN STOOL ORAL 10/28/2024 [id number] 4 RIN FUENTES 2023 100 [facility] EPLERENONE 25MG TAB TAKE ONE TABLET BY MOUTH ONCE DAILY FOR HIGH BLOOD PRESSURE ORAL ACTIVE 08/31/2025 [id number] 5 RIN FUENTES 2024 90 [facility] EPLERENONE 25MG TAB TAKE ONE TABLET BY MOUTH ONCE DAILY FOR HIGH BLOOD PRESSURE ORAL DISCONT INUED 09/15/2024 [id number] RIN FUENTES 2023 90 [facility] HYDROPHILIC (EQV AQUAPHOR) OINT,TOP APPLY LIBERAL AMOUNT TOPICALL Y ONCE DAILY NEEDED FOR SKIN PROTECTI ON TOPICA L 08/16/2024 [id number] 4 RIN FUENTES 2023 454 [facility] KETOCONAZOL E 2% CREAM,TOP APPLY A THIN LAYER TOPICALL Y TWICE DAILY NEEDED FOR SEBORRHE IC DERMATIT IS TOPICA L ACTIVE 09/20/2025 [id number] 5 RIN FUENTES 2024 60 [facility] KETOCONAZOL E 2% SHAMPOO SHAMPOO SMALL AMOUNT TOPICALL Y ONCE DAILY TOPICA L 10/28/2024 [id number] 4 RIN FUENTES 2023 120 [facility] LATANOPROST 0.005% SOLN,OPH INSTILL 1 DROP INTO EACH EYE AT BEDTIME OPHTHA LMIC ACTIVE 10/06/2025 [id number] 5 JUSKO,AND REW 2024 2.5 [facility] LATANOPROST 0.005% SOLN,OPH INSTILL 1 DROP INTO EACH EYE AT BEDTIME OPHTHA LMIC DISCONT INUED 01/11/2025 [id number] 4 JUSKO,AND REW 2023 7.5 [facility] LATANOPROST 0.005% SOLN,OPH INSTILL 1 DROP INTO EACH EYE AT BEDTIME OPHTHA LMIC DISCONT INUED 11/26/2024 [id number] 4 JUSKO,AND REW 2023 12.5 [facility] LOSARTAN 50MG TAB TAKE ONE TABLET BY MOUTH ONCE DAILY FOR BLOOD PRESSURE /HEART ORAL DISCONT INUED (EDIT) 06/23/2024 [id number] RIN FUENTES 2022 90 [facility] [place] POTASSIUM 100MG TAB TAKE ONE TABLET BY MOUTH ONCE DAILY FOR BLOOD PRESSURE /HEART ORAL ACTIVE 08/31/2025 [id number] 5 RIN FUENTES 2024 90 [facility] [place] POTASSIUM 100MG TAB TAKE ONE TABLET BY MOUTH ONCE DAILY FOR BLOOD PRESSURE /HEART ORAL DISCONT INUED 10/01/2024 [id number] RIN FUENTES 2023 90 [facility] MULTIVIT/OP HTH AREDS2/LUTE IN/ZEAXANTH IN CAP/TAB TAKE 1 CAPSULE BY MOUTH TWICE DAILY IN THE MORNING AND EVENING, WITH FOOD ORAL ACTIVE 03/30/2025 [id number] 5 GINA,RIN WALTER 2023 120 [facility] MULTIVIT/OP HTH AREDS2/LUTE IN/ZEAXANTH IN CAP/TAB TAKE 1 CAPSULE BY MOUTH TWICE DAILY IN THE MORNING AND EVENING, WITH FOOD ORAL DISCONT INUED 03/25/2024 [id number] 4 Savannah RENDON 2022 120 [facility] OXYGEN MISCELLANEO US USE 2 LITERS VIA NC AT NIGHT DIRECTED PRN NOT APPLIC ABLE ACTIVE BIBIANA MONTGOMERY 2023 [facility] PANTOPRAZOL E NA 40MG TAB,EC TAKE ONE TABLET BY MOUTH EVERY OTHER DAY FOR EXCESSIV E PRODUCTI ON OF STOMACH ACID ORAL DISCONT INUED BY PROVIDE R 10/06/2024 [id number] RIN FUENTES 2023 45 [facility] ([facility]) POLYETHYLEN E GLYCOL 3350 PWDR,ORAL TAKE 17 GRAMS(FI LL CAP TO 17GM LINE) BY MOUTH ONCE DAILY NEEDED FOR CONSTIPA TION [MIX WITH 4 TO 8OZ. OF BEVERAGE ] ORAL 01/26/2024 [id number] 4 RIN FUENTES 2023 510 [facility] PRIMIDONE 50MG TAB TAKE ONE TABLET BY MOUTH THREE TIMES A DAY ORAL ACTIVE 08/31/2025 [id number] 5 RIN FUENTES 2024 270 [facility] PRIMIDONE 50MG TAB TAKE ONE TABLET BY MOUTH THREE TIMES A DAY ORAL DISCONT INUED 10/01/2024 [id number] 4 RIN FUENTES 2023 270 [facility] SITAGLIPTIN (EQV-ZITUVI O) 100MG TAB TAKE ONE TABLET BY MOUTH ONCE DAILY FOR DIABETES (IN PLACE OF ALOGLIPT IN) ORAL DISCONT INUED BY PROVIDE R 04/29/2025 [id number] RIN FUENTES 2023 90 [facility] TIMOLOL MALEATE 0.5% GEL,OPH APPLY 1 DROP INTO EACH EYE TWICE DAILY OPHTHA LMIC DISCONT INUED BY PROVIDE R 07/14/2024 [id number] 4 Savannah RENDON 2023 15 [facility] TIMOLOL MALEATE 0.5% SOLN,OPH INSTILL 1 DROP INTO EACH EYE TWICE DAILY OPHTHA LMIC ACTIVE 10/06/2025 [id number] 5 JUSKO,AND REW 2024 5 [facility] TIMOLOL MALEATE 0.5% SOLN,OPH INSTILL 1 DROP INTO EACH EYE TWICE DAILY OPHTHA LMIC DISCONT INUED 09/01/2025 [id number] 4 JUSKO,AND REW 2023 15 [facility] TIMOLOL MALEATE 0.5% SOLN,OPH INSTILL 1 DROP INTO EACH EYE TWICE DAILY OPHTHA LMIC DISCONT INUED BY PROVIDE R 11/26/2024 [id number] JUSKO,AND REW 2023 30 [facility] TORSEMIDE 20MG TAB TAKE ONE TABLET BY MOUTH ONCE DAILY ORAL ACTIVE 05/13/2025 [id number] RIN FUENTES 2023 90 [facility] TORSEMIDE 20MG TAB TAKE ONE TABLET BY MOUTH ONCE DAILY ORAL DISCONT INUED 02/10/2025 [id number] 4 RIN FUENTES 2023 30 [facility] TORSEMIDE 20MG TAB TAKE ONE TABLET BY MOUTH ONCE DAILY ORAL DISCONT INUED 07/20/2024 [id number] MARY ELLEN SALVADOR 2022 30 [facility] Allergies, Adverse Reactions, Alerts Combined list of allergies from Department of Defense and Veterans Affairs facilities. It does not include entries that were removed or entered in error. Substance Category Reaction Severity Reaction type Status Date Reported Comments Source INFLUENZA Propensity to adverse reactions to drug (finding) Nausea and vomiting active 6 [facility] SULFA DRUGS Propensity to adverse reactions to drug (finding) Nausea and vomiting active 6 [facility] Immunizations Combined list of available immunizations from the Department of Defense and Veterans Affairs facilities. 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 Status Comments Source COVID-19 (MODERNA), MRNA, LNP-S, PF, 50 MCG/0.5 ML (AGES 12+ YEARS) 2023 FRANSICO PINA RIGHT DELTO ID [id number] 312 complet ed [facility] INFLUENZA, HIGH-DOSE, TRIVALENT, PF 2023 FRANSICO PINA RIGHT [place] ID [id number] 135 complet ed [facility] COVID-19 (MODERNA), MRNA, LNP-S, PF, 50 MCG/0.5 ML (AGES 12+ YEARS) 1 2023 FRANSICO PINA RIGHT DELTO ID [id number] 312 complet ed [facility] RSV, BIVALENT, PROTEIN SUBUNIT RSVPREF, DILUENT RECONSTITUTED , 0.5 ML, PF 1 2022 FRANSICO PINA RIGHT [place] ID [id number] 305 complet ed [facility] INFLUENZA, HIGH-DOSE, QUADRIVALENT 2022 FRANSICO PINA RIGHT [place] ID [id number] 197 complet ed [facility] COVID-19 (MODERNA), MRNA, LNP-S, BIVALENT BOOSTER, PF, 50 MCG/0.5 ML OR 25MCG/0.25 ML DOSE 1 2021 FRANSICO PINA RIGHT [place] ID [id number] 229 complet ed [facility] INFLUENZA VACCINE, QUADRIVALENT, ADJUVANTED 2021 205 complet ed [facility] COVID-19 (MODERNA), MRNA, LNP-S, PF, 100 MCG/0.5ML DOSE OR 50 MCG/0.25ML DOSE 3 2021 207 complet ed MOD; [id number]; 2 [facility] COVID-19 (MODERNA), MRNA, LNP-S, PF, 100 MCG/0.5ML DOSE OR 50 MCG/0.25ML DOSE 3 2020 207 complet ed [facility] INFLUENZA, UNSPECIFIED FORMULATION 2020 88 complet ed [facility] COVID-19 (MODERNA), MRNA, LNP-S, PF, 100 MCG/0.5 ML DOSE 2 2020 207 complet ed MOD; [id number]; 1 [facility] COVID-19 (MODERNA), MRNA, LNP-S, PF, 100 MCG/0.5 ML DOSE 1 2020 207 complet ed MOD; [id number]; 1 [facility] INFLUENZA, UNSPECIFIED FORMULATION 2019 88 complet ed [facility] INFLUENZA, SEASONAL, INJECTABLE 2018 141 complet ed [facility] per patient [facility] ZOSTER RECOMBINANT 2 2018 187 complet ed YES [facility] ZOSTER RECOMBINANT 1 2018 187 complet ed YES [facility] INFLUENZA, SEASONAL, INJECTABLE 2017 141 complet ed [facility] PNEUMOCOCCAL CONJUGATE PCV 13 2016 133 complet ed [place] TDAP 2016 115 complet ed Site: Right Deltoid [place] INFLUENZA, SEASONAL, INJECTABLE 2016 141 complet ed [facility] FLU,3 YRS (HISTORICAL) 2015 88 complet ed Site: Right Deltoid [facility] FLU,3 YRS (HISTORICAL) 2014 88 complet ed [facility] [place] [facility] FLU,3 YRS (HISTORICAL) 2012 88 complet ed [facility] [place] [facility] FLU,3 YRS (HISTORICAL) 2012 88 complet ed Site: Left Deltoid [place] FLU,3 YRS (HISTORICAL) 2011 88 complet ed [facility] ZOSTER LIVE 2011 LISHA HAMMOND 121 comple t ed [place] FLU,3 YRS (HISTORICAL) 2010 88 complet ed Site: Left Deltoid [place] TD(ADULT) UNSPECIFIED FORMULATION 2010 139 complet ed Site: Right Deltoid [place] FLU,3 YRS (HISTORICAL) 2009 88 complet ed [facility] NOVEL INFLUENZA-H1N 1-09, ALL FORMULATIONS 2008 128 complet ed [facility] FLU,3 YRS (HISTORICAL) 2007 88 complet ed Pt went to his local [place] for his vaccine!! [facility] FLU,3 YRS (HISTORICAL) 2006 88 complet ed No reaction tto vaccine per patient. [facility] FLU,3 YRS (HISTORICAL) 2005 88 complet ed Site: Right Deltoid [facility] PNEUMOCOCCAL, UNSPECIFIED FORMULATION 2003 109 complet ed Primary Care Provider [facility] Results Combined list of recent chemistry, hematology and other laboratory results from Department of Defense and Veterans Affairs, ranging from 15 months to all on record, depending upon the facility. Order Name Results Value Reference Range Date Interpretation Specimen Comments Source VITAMIN D (25-OH) 25-HYDROXYV ITAMIN D3 [MASS/VOLUM E] IN SERUM OR PLASMA 39 ng/mL 20 - 50 10/21 Specimen Type: SERUM No comment entered. Ordering Provider: ARIC FUENTES Report Released Date/Time: Sep 02, 2024 08:56 AM Reporting Lab: [facility] [address] [address] Performing Lab: [facility] [address] [address] [facility] PTH INTACT PARATHYRIN. INTACT [MASS/VOLUM E] IN SERUM OR PLASMA 77.4 pg/mL 8.7 - 77.1 10/21 H Specimen Type: SERUM No comment entered. Ordering Provider: ARIC FUENTES Report Released Date/Time: Sep 02, 2024 08:56 AM Reporting Lab: [facility] [place] [facility] [address] [phone] Performing Lab: [facility] [place] [facility] [address] [address] [facility] MICROALBU MIN CREATININ E RATIO PANEL MICROALBUMI N/CREATININ E [MASS RATIO] IN URINE 11.9 mg/g 0 - 29.9 10/21 Specimen Type: URINE No comment entered. Ordering Provider: ARIC FUENTES Report Released Date/Time: Sep 02, 2024 08:56 AM Reporting Lab: [facility] [place] [address] [address] Performing Lab: [facility] [address] [address] [facility] MICROALBU MIN CREATININ E RATIO PANEL MICROALBUMI N [MASS/VOLUM E] IN URINE 2.4 mg/dL 10/21 Specimen Type: URINE No comment entered. Ordering Provider: ARIC FUENTES Report Released Date/Time: Sep 02, 2024 08:56 AM Reporting Lab: [facility] [place] [address] [address] Performing Lab: [facility] [place] [address] [address] [facility] MICROALBU MIN CREATININ E RATIO PANEL CREATININE [MASS/VOLUM E] IN URINE 202.37 mg/dL 10/21 Specimen Type: URINE No comment entered. Ordering Provider: ARIC FUENTES Report Released Date/Time: Sep 02, 2024 08:56 AM Reporting Lab: [facility] [place] [facility] [address] [phone] Performing Lab: [facility] [place] [facility] [address] [facility] [address] [facility] [place] [facility] LIVER FUNCTION PROTEIN [MASS/VOLUM E] IN SERUM OR PLASMA 7.8 g/dL 6.0 - 8.3 10/21 Specimen Type: SERUM No comment entered. Ordering Provider: ARIC FUENTES Report Released Date/Time: Sep 02, 2024 08:56 AM Reporting Lab: [facility] [place] [facility] [address] [facility] [phone] Performing Lab: [facility] [place] [facility] [address] [facility] [address] [facility] [place] [facility] LIVER FUNCTION ALBUMIN [MASS/VOLUM E] IN SERUM OR PLASMA 3.9 g/dL 3.5 - 5.0 10/21 Specimen Type: SERUM No comment entered. Ordering Provider: ARIC FUENTES Report Released Date/Time: Sep 02, 2024 08:56 AM Reporting Lab: [facility] [place] [facility] [address] [facility] [phone] Performing Lab: [facility] [place] [facility] [address] [facility] [phone] [facility] [place] [facility] LIVER FUNCTION ALKALINE PHOSPHATASE [ENZYMATIC ACTIVITY/VO LUME] IN SERUM OR PLASMA 160 U/L 40 - 150 10/21 H Specimen Type: SERUM No comment entered. Ordering Provider: ARIC FUENTES Report Released Date/Time: Sep 02, 2024 08:56 AM Reporting Lab: [facility] [place] [facility] [address] [address] Performing Lab: [facility] [place] [facility] [address] [address] [facility] [place] [facility] LIVER FUNCTION ASPARTATE AMINOTRANSF ERASE [ENZYMATIC ACTIVITY/VO LUME] IN SERUM OR PLASMA 22 U/L 5 - 34 10/21 Specimen Type: SERUM No comment entered. Ordering Provider: ARIC FUENTES Report Released Date/Time: Sep 02, 2024 08:56 AM Reporting Lab: [facility] [place] [facility] [address] [address] Performing Lab: [facility] [place] [facility] [address] [address] [facility] [place] [facility] LIVER FUNCTION ALANINE AMINOTRANSF ERASE [ENZYMATIC ACTIVITY/VO LUME] IN SERUM OR PLASMA 28 U/L 10/21 Specimen Type: SERUM No comment entered. Ordering Provider: ARIC FUENTES Report Released Date/Time: Sep 02, 2024 08:56 AM Reporting Lab: [facility] [place] [facility] [address] [address] Performing Lab: [facility] [place] [facility] [address] [address] [facility] [place] [facility] LIVER FUNCTION BILIRUBIN.T OTAL [MASS/VOLUM E] IN SERUM OR PLASMA 0.8 mg/dL 0.2 - 1.2 10/21 Specimen Type: SERUM No comment entered. Ordering Provider: ARIC FUENTES Report Released Date/Time: Sep 02, 2024 08:56 AM Reporting Lab: [facility] [place] [facility] [address] [address] Performing Lab: [facility] [place] [facility] [address] [address] [facility] [place] [facility] LIPID PANEL, NON FASTING CHOLESTEROL [MASS/VOLUM E] IN SERUM OR PLASMA 139 mg/dL 10/21 Specimen Type: SERUM No comment entered. Ordering Provider: ARIC FUENTES Report Released Date/Time: Sep 02, 2024 08:58 AM Reporting Lab: [facility] [place] [facility] [address] [address] Performing Lab: [facility] [place] [facility] [address] [address] [facility] [place] [facility] LIPID PANEL, NON FASTING TRIGLYCERID E [MASS/VOLUM E] IN SERUM OR PLASMA 129 mg/dL 0 - 150 10/21 Specimen Type: SERUM No comment entered. Ordering Provider: ARIC FUENTES Report Released Date/Time: Sep 02, 2024 08:58 AM Reporting Lab: [facility] [place] [facility] [address] [address] Performing Lab: [facility] [place] [facility] [address] [address] [facility] [place] [facility] LIPID PANEL, NON FASTING CHOLESTEROL IN LDL [MASS/VOLUM E] IN SERUM OR PLASMA BY CALCULATION 69 mg/dL 0 - 129 10/21 Specimen Type: SERUM No comment entered. Ordering Provider: ARIC FUENTES Report Released Date/Time: Sep 02, 2024 08:58 AM Reporting Lab: [facility] [place] [facility] [address] [address] Performing Lab: [facility] [place] [facility] [address] [address] [facility] [place] [facility] LIPID PANEL, NON FASTING CHOLESTEROL .TOTAL/CHOL ESTEROL IN HDL [MASS RATIO] IN SERUM OR PLASMA 3.2 10/21 Specimen Type: SERUM No comment entered. Ordering Provider: ARIC FUENTES Report Released Date/Time: Sep 02, 2024 08:58 AM Reporting Lab: [facility] [place] [facility] [address] [address] Performing Lab: [facility] [place] [facility] [address] [address] [facility] [place] [facility] LIPID PANEL, NON FASTING CHOLESTEROL IN HDL [MASS/VOLUM E] IN SERUM OR PLASMA 44 mg/dL 40 - 60 10/21 Specimen Type: SERUM No comment entered. Ordering Provider: ARIC FUENTES Report Released Date/Time: Sep 02, 2024 08:58 AM Reporting Lab: [facility] [place] [facility] [address] [address] Performing Lab: [facility] [address] [address] [facility] BASIC METABOLIC PANEL (non-fast ing) UREA NITROGEN [MASS/VOLUM E] IN SERUM OR PLASMA 32 mg/dL 7 - 25 10/21 H Specimen Type: SERUM No comment entered. Ordering Provider: ARIC FUENTES Report Released Date/Time: Sep 02, 2024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 YEARS AGO 12/08/2005 HX of tobacco use for approx 40 yrs. [facility] Plan of Care List of future care activities from [facility] facilities. Additional future care activities may be listed in the Assessment and Plan section. Date/Time Care Activity Care Activity Detail [facility] 02/24/2025 AMBULATORY - MEDICINE AMBULATORY - MEDICI [facility] 04/13/2025 AMBULATORY - MEDICINE AMBULATORY - MEDICI [facility] 10/17/2024 Laboratory - Communications Lead ry Order HEMOGLOBIN A1C PANEL BLOOD (LAV-BLOOD) SP [facility] Advance Directives List of completed, amended, or rescinded Advance Directives on record at [facility] facilities. An actual copy of the Directive is not included. Date Advance Directive Provider Source 11/11/2016 ADVANCE DIRECTIVE ELROY CHÁVEZ [facility] 07/08/2006 ADVANCE DIRECTIVE [facility]
--- OUTSIDE RECORDS SUMMARY | 2024-11-16 10:46 | XMS_ITS ---
Author Name [facility] [place] Address [address] [place] [address] Care Team Providers Care Mailer Name Role Phone GILES FUENTES Primary Care [...] CAREMARK PRESCRIPT ION GEHA Sep 14, 2014 [id number] [phone] FANY LEMUS ON PATIENT CAREMARK PRESCRIPT ION SUSI ATKINSON Sep 14, 2014 [id number] [phone] FANY LEMUS ON PATIENT CAREMARK PRESCRIPT ION Sep 14, 2014 [id number] [phone] ALLAN,MYR ON PATIENT GEHA (SECONDARY ) PREFERRED PROVIDER ORGANIZAT ION (PPO) HIGH OPTIO N [facility] A&B Sep 14, 2005 [id number] ALLAN,MYR ON PATIENT GEHA (SECONDARY ) PREFERRED PROVIDER ORGANIZAT ION (PPO) GEHA CONNE CTION DENT Sep 14, 2005 [id number] ALLAN,MYR ON PATIENT GEHA FEHB PREFERRED PROVIDER ORGANIZAT ION (PPO) SUSI AL GOV Sep 14, 2005 [id number] ALTH [id number] ALLAN,MYR ON PATIENT GEHA FEHB PREFERRED PROVIDER ORGANIZAT ION (PPO) SUSI AL* Sep 14, 1989 [id number] ALTH [id number] ALLAN,MYR ON PATIENT GEHA-BEHAV [facility] GEHA HIGH OPTIO N Sep 14, 2021 [id number] ALLAN,MYR ON PATIENT MEDICARE (WNR) MEDICARE (M) PART A May 15, 2000 PART A [id number] ALLAN,MYR ON PATIENT MEDICARE (WNR) MEDICARE (M) PART B May 15, 2000 PART B [id number] ALLAN,MYR ON PATIENT MEDICARE (WNR) MEDICARE (M) PART A May 15, 2000 PART A [id number] [id number] ALLAN,MYR ON PATIENT MEDICARE (WNR) MEDICARE (M) PART B May 15, 2000 PART B [id number] [id number] ALLAN,MYR ON PATIENT MEDICARE (WNR) MEDICARE (M) PART A May 15, 2000 PART A [id number] ALLAN,MYR ON PATIENT MEDICARE (WNR) MEDICARE (M) PART B May 15, 2000 PART B [id number] ALLAN,MYR ON PATIENT MEDICARE (WNR) MEDICARE (M) PART A May 15, 2000 PART A [id number] [id number] FANY LEMUS ON PATIENT MEDICARE (WNR) MEDICARE (M) PART B May 15, 2000 PART B [id number] [id number] [phone] FANY LEMUS ON PATIENT Selected Encounter This section includes the information on record at [place] for the Encounter. Date/Time Encounter Type Encounter Description Reason Provider Source Jun 01, 2024 01:00 PM MEASURE BLOOD OXYGEN LEVEL [facility] Nursing (RN / LP) ICD-10-CM I25.9 Chronic ischemic heart disease, unspecified ANUP PINATCHEN [facility] Encounter Template Text not used by [place] Assessments - Encounter Diagnoses This section includes the primary and secondary diagnoses documented for the Encounter. Date/Time Primary/Secondary Diagnosis Diagnosis Name Provider Source Jun 05, 2024 02:06 PM PRIMARY Chronic ischemic heart disease, unspecified ADL[facility]ISA PINA [facility] Jun 05, 2024 02:06 PM SECONDARY Athscl heart disease of [place] coronary artery w/o ang pctrs [facility] Jun 05, 2024 02:06 PM SECONDARY Legal blindness, as defined in [place] ADALGISA PINA [facility] Jun 05, 2024 02:06 PM SECONDARY Other specified chronic obstructive pulmonary disease [facility] Plan of Treatment: Future Appointments (+ 6 months) and Future Tests (+/- 45 days) The Plan of Treatment section includes future care activities for the patient from all [place] treatmentfacilities. This section includes future appointments and future orders which are active, pending or scheduled. Future Appointments This section includes appointments that were scheduled to occur 6 months from the date of the Encounter, up to a maximum of 20 appointments. The data comes from all [place] treatment facilities. Appointment Date/Time Appointment Type Appointme nt Facility Name Jun 03, 2024 11:30 AM [facility] Sep 26, 2024 10:00 AM AMBUL[facility] Oct 21, 2024 11:30 AM [facility] Vital Signs: All taken on the encounter date This section contains inpatient and outpatient Vital Signs collected on the date of the Encounter. Date/Time Temperature Pulse Blood Pressure Respiratory Rate SP02 Pain Height Weight Body Mass Index Source Jun 01, 2024 04:09 PM 97.7 54 118/60 18 96 0 201 29 [place] [facility] [place] [facility] Social History: Smoking Status (Most current) and Tobacco Use (All prior to encounter date) This section includes the most current, and the historical, smoking and tobacco- related health factors from the [place] facility where the Encounter took place. Current Smoking Status This section includes the most current smoking, or tobacco-related health factor, from the [place] facility where the Encounter took place. Date/Time Current Smoking Status Comment Facil ity Sep 02, 2023 05:30 PM VA-TOBACCO FORMER USER [place] [facility] [place] [facility] Tobacco Use History This section includes a history of the smoking, or tobacco-related health factors, that were collected on or before the date of the Encounter. The data comes from the [place] facility where the Encounter took place. Date/Time Smoking Status/Tobacco Use Comment F acility Sep 02, 2023 05:30 PM VA-TOBACCO QUIT 15 YRS OR MORE [place] [facility] [place] [facility] Apr 24, 2022 01:00 PM VA-TOBACCO FORMER USER [place] [facility] [place] [facility] Apr 24, 2022 01:00 PM VA-TOBACCO QUIT 15 YRS OR MORE [place] [facility] [place] [facility] Dec 05, 2021 02:00 PM VA-TOBACCO USE DEC LINED TO ANSWER [place] [facility] [place] [facility] Nov 24, 2021 04:05 PM VA-TOBACCO USE DEC LINED TO ANSWER [place] [facility] [place] [facility] Sep 20, 2020 08:40 AM VA-TOBACCO NEVER USED [place] [facility] [place] [facility] Advance Directives: All historical and current Section Date Range: From patient's date of to the date document was created. This section includes ALL of a patient's completed or amended [place] Advance and Rescinded Directives. The entries below indicate that a directive exists for the patient, but an actual copy is not included with this document. The data comes from all [place] facilities. Date Advance Directives Provider Source Nov 11, 2016 ADVANCE DIRECTIVE ELROY CHÁVEZ [place] [facility] [place] [facility] Jul 08, 2006 ADVANCE DIRECTIVE CHAPARRO DICKT [facility] Encounter Notes: All associated encounter notes This section contains the clinical notes associated to the Encounter. Date/Time Encounter Note(s) Provider Source Jun 09, 2024 03:47 PM ADDENDUM: LOCAL TITLE: Addendum STANDARD TITLE: ADDENDUM DATE OF NOTE: JUN 09, 2024@15:47:27 ENTRY DATE: JUN 09, 2024@15:47:27 AUTHOR: ADALGISA PINA COSIGNER: URGENCY: STATUS: COMPLETED Telephone call to today to see if RN visit is needed , spoke with Kely , reviewed recent BP/P readings. She reports they checked heart rate a few times, has not checked BP. Heart rate 48, 52, 54 and 70. feeling well. No changes since RN visit. She denies need for RN visit today. Reviewed changes in heart rate with [facility] FILE CONVERSION OPERATOR. Plan to ask [facility] to do EKG. has appt there on Jun 24. Left message with [facility] requesting EKG appt. and reviewed the above concerns. Awaiting call back. Spoke with TUSHAR Schaffer in [facility] office,notified of changes in 's heart rate, verified medications. she will review with and call this senior technical writer back if they want to see sooner and/or order EKG. Advised Kely to continue to monitor heart rate and also to check BP. We reviewed reasons [place] should be seen in ER or call 911. Kely verbalizes understanding. /esthela/ Adalgisa Pina RN [facility] fitting room maintenance mechanic Signed: 06/09/2024 15:49 Receipt Acknowledged By: 06/13/2024 08:04 /esthela/ GILES FUENTES [facility] NURSE PRACTITIONER --- Original Document --- 06/01/24 [facility] RN PROGRESS NOTE: Nursing Progress Note Active and Recently Outpatient [...] TOPICALLY ONCE DAILY NEEDED FOR SKIN PROTECTION 11) KETOCONAZOLE 2% SHAMPOO SHAMPOO SMALL AMOUNT ACTIVE TOPICALLY ONCE DAILY 12) LATANOPROST 0.005% OPH SOLN INSTILL 1 DROP INTO EACH ACTIVE EYE AT BEDTIME 13) LOSARTAN 100MG TAB TAKE ONE TABLET BY MOUTH ONCE ACTIVE DAILY FOR BLOOD PRESSURE/HEART 14) MULTIVIT/OPHTH AREDS2/LUTE/ZEAX CAP/TAB TAKE 1 ACTIVE CAPSULE [...] NIGHT ACTIVE DIRECTED NEEDED 20 Total Medications MEDICATION REVIEW Medication review completed [...] by: Facial Recognition Length of visit in home:60 min Problem addressed for this visit:Blindness, Med Compliance, CAD, COPD NURSING SUMMARY:Visit made to [place] at home for assessment, med prefill. [place] and sig.other Kely present during visit. [place] has been doing well. Had circumcision done a few days ago at [facility], went well, no complications. Area is tender, but tolerable, did not want this senior technical writer to look at the area. Applying bacitracin a few times a day as advised by urologist. He is voiding without difficulty. Medications prefilled for 3 weeks as ordered. No recent changes to meds. Noted decrease in heart rate, [place] has been running in 88-94 range, now he is low 50's. [place] has no sx's. Remains on Carvedilol 3.125mg BID. Call placed to [facility], appt was given for 06/22. [place] will monitor heart rate, BP and O2 sats, this senior technical writer will revisit next week. We discussed reasons to be seek medical attention sooner. [place] has had no falls. No ER visits. had a birthday, went out to eat with family. Kely remains supportive, takes [place] to appt's and oversees his medical care. High dose flu vaccine given right deltoid, tolerated well. Blood Pressure: 118/60 (06/01/2024 16:09) Pulse: 54 (06/01/2024 16:09) Respiration: 18 (06/01/2024 16:09) Temperature: 97.7 F [36.5 C] (06/01/2024 16:09) Pain Score: 0 (06/01/2024 16:09) EXAMINATION: Lungs:clear, O2 at 2l at night Edema:no edema HR:reg, see above note. Bowel/Bladder:BM's wnl, urine clear Skin:intact skin Home Safety HOME OXYGEN: Vet has home oxygen at a rate of 2l at night only and prn delivered via [place] Oxygen orders are on active medication list:Yes NAME and telephone number of O2 Company:[employer] NO INFECTIONS NO ER/HOSPITALIZATIONS NO Teaching/goals:Continue with ongoing [facility] plan of care and medical oversight. Monitor heart rate. Reviewed medications and dosages. Reviewed topical skin care to circumcision site. Patient verbalizes understanding to above and will call with any concerns or changes in condition. For emergent care call 911. Plan for next visit:one week, cardiac assessment. Nida garnica. /esthela/ Adalgisa Pina RN [facility] fitting room maintenance mechanic Signed: 06/05/2024 14:06 ADALGISA PINA [facility] Jun 01, 2024 01:00 PM [facility] NURSING NOTE: LOCAL TITLE: [facility] RN PROGRESS NOTE STANDARD TITLE: [facility] NURSING NOTE DATE OF NOTE: JUN 01, 2024@13:00 ENTRY DATE: JUN 01, 2024@16:12:35 AUTHOR: ADALGISA PINA EXP COSIGNER: URGENCY: STATUS: COMPLETED [facility] RN PROGRESS NOTE Has ADDENDA Nursing Progress Note Active and Recently Outpatient [...] TOPICALLY ONCE DAILY NEEDED FOR SKIN PROTECTION 11) KETOCONAZOLE 2% SHAMPOO SHAMPOO SMALL AMOUNT ACTIVE TOPICALLY ONCE DAILY 12) LATANOPROST 0.005% OPH SOLN INSTILL 1 DROP INTO EACH ACTIVE EYE AT BEDTIME 13) LOSARTAN 100MG TAB TAKE ONE TABLET BY MOUTH ONCE ACTIVE DAILY FOR BLOOD PRESSURE/HEART 14) MULTIVIT/OPHTH AREDS2/LUTE/ZEAX CAP/TAB TAKE 1 ACTIVE CAPSULE [...] NIGHT ACTIVE DIRECTED NEEDED 20 Total Medications MEDICATION REVIEW Medication review completed [...] by: Facial Recognition Length of visit in home:60 min Problem addressed for this visit:Blindness, Med Compliance, CAD, COPD NURSING SUMMARY:Visit made to [place] at home for assessment, med prefill. and sig.other Kely present during visit. [place] has been doing well. Had circumcision done a few days ago at [facility], went well, no complications. Area is tender, but tolerable, did not want this senior technical writer to look at the area. Applying bacitracin a few times a day as advised by urologist. He is voiding without difficulty. Medications prefilled for 3 weeks as ordered. No recent changes to meds. Noted decrease in heart rate, [place] has been running in 88-94 range, now he is low 50's. [place] has no sx's. Remains on Carvedilol 3.125mg BID. Call placed to [facility], appt was given for 06/22. [place] will monitor heart rate, BP and O2 sats, this senior technical writer will revisit next week. We discussed reasons to be seek medical attention sooner. [place] has had no falls. No ER visits. [place] had a birthday, went out to eat with family. Kely remains supportive, takes [place] to appt's and oversees his medical care. High dose flu vaccine given right deltoid, tolerated well. Blood Pressure: 118/60 (06/01/2024 16:09) Pulse: 54 (06/01/2024 16:09) Respiration: 18 (06/01/2024 16:09) Temperature: 97.7 F [36.5 C] (06/01/2024 16:09) Pain Score: 0 (06/01/2024 16:09) EXAMINATION: Lungs:clear, O2 at 2l at night Edema:no edema HR:reg, see above note. Bowel/Bladder:BM's wnl, urine clear Skin:intact skin Home Safety HOME OXYGEN: Vet has home oxygen at a rate of 2l at night only and prn delivered via [place] Oxygen orders are on active medication list:Yes NAME and telephone number of O2 Company:[employer] NO INFECTIONS NO ER/HOSPITALIZATIONS NO Teaching/goals:Continue with ongoing [facility] plan of care and medical oversight. Monitor heart rate. Reviewed medications and dosages. Reviewed topical skin care to circumcision site. Patient verbalizes understanding to above and will call with any concerns or changes in condition. For emergent care call 911. Plan for next visit:one week, cardiac assessment. Covid injection. /esthela/ Adalgisa Pina RN [facility] fitting room maintenance mechanic Signed: 06/05/2024 14:06 06/09/2024 ADDENDUM STATUS: COMPLETED Telephone call to today to see if RN visit is needed , spoke with Kely , reviewed recent BP/P readings. She reports they checked heart rate a few times, has not checked BP. Heart rate 48, 52, 54 and 70. [place] feeling well. No changes since RN visit. She denies need for RN visit today. Reviewed changes in heart rate with [facility] FILE CONVERSION OPERATOR. Plan to ask [facility] to do EKG. has appt there on Jun 24. Left message with [facility] requesting EKG appt. and reviewed the above concerns. Awaiting call back. Spoke with TUSHAR Schaffer in [facility] office,notified of changes in [place]'s heart rate, verified medications. she will review with and call this senior technical writer back if they want to see sooner and/or order EKG. Advised Kely to continue to monitor heart rate and also to check BP. We reviewed reasons should be seen in ER or call 911. Kely verbalizes understanding. /esthela/ Adalgisa Pina RN [facility] fitting room maintenance mechanic Signed: 06/09/2024 15:49 Receipt Acknowledged By: * AWAITING SIGNATURE * GILES FUENTES [facility]
--- OUTSIDE RECORDS SUMMARY | 2024-11-16 10:46 | XMS_ITS | Encounter Summary ---
Author Name [place] Organization [facility] [place] Address [address] [place] [address] Care Team Providers Care Keg Raiser Name Role Phone GILES FUENTES Primary Care [...] CAREMARK PRESCRIPT ION [place] Sep 14, 2014 [id number] FANY LEMUS ON PATIENT CAREMARK PRESCRIPT ION SUSI ATKINSON Sep 14, 2014 [id number] FANY LEMUS ON PATIENT CAREMARK PRESCRIPT ION Sep 14, 2014 [id number] [phone] ALLAN,MYR ON PATIENT GEHA (SECONDARY ) PREFERRED PROVIDER ORGANIZAT ION (PPO) HIGH OPTIO N MCR A&B Sep 14, 2005 [id number] ALLAN,MYR ON PATIENT GEHA (SECONDARY ) PREFERRED PROVIDER ORGANIZAT ION (PPO) GEHA CONNE CTION DENT Sep 14, 2005 [id number] ALLAN,MYR ON PATIENT GEHA FEHB PREFERRED PROVIDER ORGANIZAT ION (PPO) SUSI AL GOV Sep 14, 2005 [id number] ALTH [id number] ALLAN,MYR ON PATIENT GEHA FEHB PREFERRED PROVIDER ORGANIZAT ION (PPO) SUSI AL* Sep 14, 1989 [id number] ALTH [id number] [id number] ALLAN,MYR ON PATIENT GEHA-BEHAV [facility] GEHA HIGH OPTIO N Sep 14, 2021 [id number] [phone] ALLAN,MYR ON PATIENT MEDICARE (WNR) MEDICARE (M) PART B May 15, 2000 PART B [id number] ALLAN,MYR ON PATIENT MEDICARE (WNR) MEDICARE (M) PART A May 15, 2000 PART A [id number] ALLAN,MYR ON PATIENT MEDICARE (WNR) MEDICARE (M) PART B May 15, 2000 PART B [id number] [id number] 00 ALLAN,MYR ON PATIENT MEDICARE (WNR) MEDICARE (M) PART A May 15, 2000 PART A [id number] [id number] ALLAN,MYR ON PATIENT MEDICARE (WNR) MEDICARE (M) PART A May 15, 2000 PART A [id number] [id number] [phone] ALLAN,MYR ON PATIENT MEDICARE (WNR) MEDICARE (M) PART B May 15, 2000 PART B [id number] ALLAN,MYR ON PATIENT MEDICARE (WNR) MEDICARE (M) PART A May 15, 2000 PART A [id number] [id number] FANY LEMUS ON PATIENT MEDICARE (WNR) MEDICARE (M) PART B May 15, 2000 PART B [id number] [id number] FANY LEMUS ON PATIENT Selected Encounter This section includes the information on record at [place] for the Encounter. Date/Time Encounter Type Encounter Description Reason Provider Source Mar 24, 2024 02:00 PM CMPTR OPHTH DX IMG ANT SEGMT OPTOMETRY ICD-10-CM H40.033 Anatomical narrow angle, bilateral GEORGIANA LIMA [facility] Encounter Template Text not used by [place] Assessments - Encounter Diagnoses This section includes the primary and secondary diagnoses documented for the Encounter. Date/Time Primary/Secondary Diagnosis Diagnosis Name Provider Source Apr 22, 2024 11:35 AM PRIMARY Anatomical narrow angle, bilateral [place]NA LIMA [facility] Plan of Treatment: Future Appointments (+ 6 months) and Future Tests (+/- 45 days) The Plan of Treatment section includes future care activities for the patient from all [place] treatmentfacilities. This section includes future appointments and future orders which are active, pending or scheduled. Future Appointments This section includes appointments that were scheduled to occur 6 months from the date of the Encounter, up to a maximum of 20 appointments. The data comes from all [place] treatment facilities. Appointment Date/Time Appointment Type Appointme nt Facility Name Mar 31, 2024 11:00 AM [facility] Mar 31, 2024 01:00 PM [facility] May 04, 2024 01:00 PM [facility] [place] [facility] Jun 03, 2024 11:30 AM AMBULATORY - MEDICINE [facility] [place] Vital Signs: All taken on the encounter date This section contains inpatient and outpatient Vital Signs collected on the date of the Encounter. Date/Time Temperature Pulse Blood Pressure Respiratory Rate SP02 Pain Height Weight Body Mass Index Source Mar 24, 2024 11:00 AM 97.1 94 118/70 18 92 0 197.6 28 [facility] Social History: Smoking Status (Most current) and Tobacco Use (All prior to encounter date) This section includes the most current, and the historical, smoking and tobacco- related health factors from the [place] facility where the Encounter took place. Current Smoking Status This section includes the most current smoking, or tobacco-related health factor, from the [place] facility where the Encounter took place. Date/Time Current Smoking Status Comment Emily ity Sep 02, 2023 05:30 PM VA-TOBACCO [facility]ER [facility] Tobacco Use History This section includes a history of the smoking, or tobacco-related health factors, that were collected on or before the date of the Encounter. The data comes from the [place] facility where the Encounter took place. Date/Time Smoking Status/Tobacco Use Comment F acility Sep 02, 2023 05:30 PM VA-TOBACCO QUIT 15 YRS OR MORE [place] [facility] Apr 24, 2022 01:00 PM VA-TOBACCO FORMER USER [place] [facility] [place] [facility] Apr 24, 2022 01:00 PM VA-TOBACCO QUIT 15 YRS OR MORE [facility] Dec 05, 2021 02:00 PM VA-TOBACCO USE DEC LINED TO ANSWER [place] [facility] [place] [facility] Nov 24, 2021 04:05 PM VA-TOBACCO USE DEC LINED TO ANSWER [place] [facility] [place] [facility] Sep 20, 2020 08:40 AM VA-TOBACCO NEVER USED [facility] Advance Directives: All historical and current Section Date Range: From patient's date of to the date document was created. This section includes ALL of a patient's completed or amended [place] Advance and Rescinded Directives. The entries below indicate that a directive exists for the patient, but an actual copy is not included with this document. The data comes from all [place] facilities. Date Advance Directives Provider Source Nov 11, 2016 ADVANCE DIRECTIVE ELROY CHÁVEZ [place] [facility] Jul 08, 2006 ADVANCE DIRECTIVE [facility] Encounter Notes: All associated encounter notes This section contains the clinical notes associated to the Encounter. 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 OD: Left angle 21 degree, right angle 17 degrees OS: Left angle 5 degrees, right angle 15 degrees Angles are narrow OU, OS>OD. Angles not likely occludable. 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 Narrow but likely not excludable angles. He is followed by a community water resource engineer who is indicating he does not feel he requires laser iridotomy's at present. Keep scheduled follow-up with Dr. Garay. /esthela/ Raj Lima OD CHIEF OF OPTOMETRY Signed: 03/28/2024 07:58 TIKA DAVIES [facility]
--- OUTSIDE RECORDS SUMMARY | 2024-11-16 10:46 | XMS_ITS | Clinical Summary ---
Author Organization [address] Address [address] [place] [id number] Phone Care Team Providers Care V Belt Builder Name Role Phone Bakari Akhtar MD Primary Care Provider Encounters Date Type Department Care Team Description 09/22/2024 Lab Requisition [facility] Lab [address] [facility] [place] [address] Troy Butcher PA Chronic obstructive pulmonary disease, unspecified (CMS/HCC); Type 2 diabetes mellitus without complications (CMS/HCC) from Last 3 Months Surgical History Surgery Date Site/Laterality Comments PROSTATE SURGERY PROCEDURE: HISTORICAL PROSTATE SURGERY; COMMENT: Cancer TOTAL KNEE ARTHROPLASTY PROCEDURE: HISTORICAL TOTAL KNEE REPLACE Social History Tobacco Use Types Packs/Day Years Used Date Smoking Tobacco: Former Cigarettes Q uit: 09/14/1996 Smokeless Tobacco: Never Alcohol Use Standard Drinks/Week Comments Yes 0 (1 standard drink = 0.6 oz pur e alcohol) Sex and Gender Information Value Date Recorded Sex Assigned at Not on file Legal Sex Male 7:45 AM EST Gender Identity Not on file Sexual Orientation Not on file Obstetrics History Last Filed Vital Signs Vital Sign Reading Time Taken Comments Blood Pressure 146/76 06/24/2024 9:49 AM EDT Pulse 71 06/24/2024 9:49 AM EDT Temperature - - Respiratory Rate - - Oxygen Saturation - - Inhaled Oxygen Concentration - - Weight 90.7 kg (200 lb) 06/24/2024 9:49 AM EDT Height 182.9 cm (6') 06/24/2024 9:49 AM EDT Body Mass Index 27.12 06/24/2024 9:49 AM EDT Plan of Treatment Health Maintenance Due Date Last Done Comments Diabetes: Annual Foot Exam 1945 Diabetes: Annual Retina Eye Exam 1945 Depression Screening 08/17/2022 Falls Risk Assessment 08/17/2022 Social Influencers of Health Screening 08/17/2022 Medicare Annual Wellness Visit 02/20/2024 02/19/2023 Diabetes: Blood Sugar Control Test (HGBA1C) 02/01/2025 08/04/2024 Hypertension/CHF/CAD Annual BMP Blood Test 09/22/2025 09/22/2024 DTaP,Tdap,and Td Vaccines (3 - Td or Tdap) 08/13/2027 08/13/2017, 07/28/2011 Cholesterol Screening (Lipid Panel) 09/22/2029 09/22/2024, 09/22/2024 Zoster Vaccines Completed 02/27/2019, 11/12, 02/18/2012 Pneumococcal Vaccine: 50+ Years Completed 07/03/2021, 08/13/2017, 11/13/2003 RSV Immunization Patients 60+ Years Old Completed 07/30/2023 Influenza Vaccine Completed 06/01/2024, , 05/27/2023, Additional history exists COVID-19 Vaccine Completed 06/22/2024, , 08/05/2022, Additional history exists HIB Vaccines Aged Out No longer eligi ble based on patient's age to complete this topic HPV Vaccines Aged Out No longer eligi ble based on patient's age to complete this topic Hepatitis A Vaccines Aged Out No long er eligible based on patient's age to complete this topic Hepatitis B Vaccines Aged Out No long er eligible based on patient's age to complete this topic IPV Vaccines Aged Out No longer eligi ble based on patient's age to complete this topic MMR Vaccines Aged Out No longer eligi ble based on patient's age to complete this topic Meningococcal ACWY Vaccine Aged Out N o longer eligible based on patient's age to complete this topic Meningococcal B Vacine Aged Out No lo nger eligible based on patient's age to complete this topic RSV Immunization Patients Under 20 months Aged Out No longer eligible based on patient's age to complete this topic Varicella Vaccines Aged Out No longer eligible based on patient's age to complete this topic Procedures Procedure Name Priority Date/Time Associated Diagnosis Comments SST - GOLD Routine 09/22/2024 12:00 AM EST Chronic obstructive pulmonary disease, unspecified (CMS/HCC) Type 2 diabetes mellitus without complications (CMS/HCC) CBC WITH AUTO DIFFERENTIAL Routine 09/22/2024 12:00 AM EST Chronic obstructive pulmonary disease, unspecified (CMS/HCC) Type 2 diabetes mellitus without complications (CMS/HCC) PROSTATE SPECIFIC ANTIGEN SCREEN Routine 09/22/2024 12:00 AM EST Chronic obstructive pulmonary disease, unspecified (CMS/HCC) Type 2 diabetes mellitus without complications (CMS/HCC) MAGNESIUM Routine 09/22/2024 12:00 AM EST Chronic obstructive pulmonary disease, unspecified (CMS/HCC) Type 2 diabetes mellitus without complications (CMS/HCC) CBC AND DIFFERENTIAL Routine 09/22/2024 12:00 AM EST Chronic obstructive pulmonary disease, unspecified (CMS/HCC) Type 2 diabetes mellitus without complications (CMS/HCC) B-TYPE NATRIURETIC PEPTIDE Routine 09/22/2024 12:00 AM EST Chronic obstructive pulmonary disease, unspecified (CMS/HCC) Type 2 diabetes mellitus without complications (CMS/HCC) VITAMIN B12 Routine 09/22/2024 12:00 AM EST Chronic obstructive pulmonary disease, unspecified (CMS/HCC) Type 2 diabetes mellitus without complications (CMS/HCC) LDL CHOLESTEROL, DIRECT Routine 09/22/2024 12:00 AM EST Chronic obstructive pulmonary disease, unspecified (CMS/HCC) Type 2 diabetes mellitus without complications (CMS/HCC) VITAMIN D 25 HYDROXY Routine 09/22/2024 12:00 AM EST Chronic obstructive pulmonary disease, unspecified (CMS/HCC) Type 2 diabetes mellitus without complications (CMS/HCC) LIPID PANEL WITH REFLEX TO DIRECT LDL Routine 09/22/2024 12:00 AM EST Chronic obstructive pulmonary disease, unspecified (CMS/HCC) Type 2 diabetes mellitus without complications (CMS/HCC) COMPREHENSIVE METABOLIC PANEL Routine 09/22/2024 12:00 AM EST Chronic obstructive pulmonary disease, unspecified (CMS/HCC) Type 2 diabetes mellitus without complications (CMS/HCC) HEMOGLOBIN A1C Routine 08/04/2024 4:02 PM EST Diabetes mellitus (CMS/HCC) from Last 3 Months or Most Recently Relevant to Health Maintenance Results * (ABNORMAL) Prostate specific antigen screen (09/22/2024 12:00 AM EST) PSA 27.54(H) 0.00 - 4.00 ng/mL LAB CHEMISTRY METHOD 09/22/2024 8:21 PM EST [facility] Blood Venous blood specimen / Unknown 09/22/2024 09/22/2024 6:24 PM EST Narrative [facility] - 09/22/2024 8:21 PM EST The Siemens Advia Centaur Chemiluminescent Immunoassay is used. Results obtained with different assay methods or kits cannot be used interchangeably. Results cannot be interpreted as absolute evidence of the presence or absence of malignant disease. Troy GAR LAB BLOOD ORDERABLES Final Res ult [facility] [address] [place] [address], [place] [phone] * SST tube (09/22/2024 12:00 AM EST) Extra Tube Hold for add-ons. 09/22/2024 8:01 PM EST [facility] Comment:Auto resulted. Blood Venous blood specimen / Unknown 09/22/2024 09/22/2024 6:24 PM EST Troy GAR LAB BLOOD ORDERABLES Final Res ult [facility] [address] [place] [address], [place] [phone] * Lipid panel with reflex to direct LDL (09/22/2024 12:00 AM EST) Pathologist [facility] Cholesterol 122 0 - 200 mg/dL LAB CHEMISTRY METHOD 09/22/2024 8:34 PM EST [facility] Triglycerides 90 0 - 150 mg/dL LAB CHEMISTRY METHOD 09/22/2024 8:34 PM EST [facility] HDL 56 >=40 mg/dL LAB CHEMISTRY METHOD 09/22/2024 8:34 PM EST [facility] LDL Calculated 48 0 - 100 mg/dL LAB CHEMISTRY METHOD 09/22/2024 8:34 PM EST [facility] VLDL Cholesterol Jaya 18 mg/dL LAB CHEMISTRY METHOD 09/22/2024 8:34 PM EST [facility] Non HDL Chol. (LDL+VLDL) 66 <145 mg/dL LAB CHEMISTRY METHOD 09/22/2024 8:34 PM EST [facility] Chol/HDL Ratio 2.2 0.0 - 4.4 LAB CHEMISTRY METHOD 09/22/2024 8:34 PM EST [facility] Blood Venous blood specimen / Unknown 09/22/2024 09/22/2024 6:24 PM EST Troy GAR LAB BLOOD ORDERABLES Final Res ult Performing Organization Address City/[facility]/ZIP Co de Phone Number [facility] [address] [place] [address], [place] [phone] * (ABNORMAL) CBC auto differential (09/22/2024 12:00 AM EST) Pathologist [facility] WBC 8.9 4.8 - 10.8 K/mcL LAB HEMETOLOGY METHOD 09/22/2024 7:40 PM EST [facility] RBC 4.70 4.50 - 5.50 M/mcL LAB HEMETOLOGY METHOD 09/22/2024 7:40 PM [facility] Hemoglobin 14.7 13.5 - 17.5 g/dL LAB HEMETOLOGY METHOD 09/22/2024 7:40 PM [facility] Hematocrit 45.8 42.0 - 54.0 % LAB HEMETOLOGY METHOD 09/22/2024 7:40 PM [facility] MCV 97.9 79.0 - 98.0 FL LAB HEMETOLOGY METHOD 09/22/2024 7:40 PM [facility] MCH 31.4 27.0 - 32.0 pcg LAB HEMETOLOGY METHOD 09/22/2024 7:40 PM [facility] MCHC 32.1 32.0 - 37.0 g/dL LAB HEMETOLOGY METHOD 09/22/2024 7:40 PM [facility] RDW 13.3 11.0 - 15.0 % LAB HEMETOLOGY METHOD 09/22/2024 7:40 PM [facility] Platelets 151 130 - 400 K/mcL LAB HEMETOLOGY METHOD 09/22/2024 7:40 PM [facility] MPV 12.4(H) 7.0 - 11.0 FL LAB HEMETOLOGY METHOD 09/22/2024 7:40 PM [facility] NRBC 0.0 <1.0 % LAB HEMETOLOGY METHOD 09/22/2024 7:40 PM [facility] NRBC Absolute 0.00 <0.10 K/mcL LAB HEMETOLOGY METHOD 09/22/2024 7:40 PM [facility] Neutrophils Relative 65.2 % LAB HEMETOLOGY METHOD 09/22/2024 7:40 PM [facility] Lymphocytes Relative 23.1 % LAB HEMETOLOGY METHOD 09/22/2024 7:40 PM [facility] Monocytes Relative 9.5 % LAB HEMETOLOGY METHOD 09/22/2024 7:40 PM [facility] Eosinophils Relative 1.4 % LAB HEMETOLOGY METHOD 09/22/2024 7:40 PM [facility] Basophils Relative 0.6 % LAB HEMETOLOGY METHOD 09/22/2024 7:40 PM [facility] Immature Granulocytes Relative 0.2 % LAB HEMETOLOGY METHOD 09/22/2024 7:40 PM [facility] Neutrophils Absolute 5.78 1.50 - 7.00 K/mcL LAB HEMETOLOGY METHOD 09/22/2024 7:40 PM [facility] Lymphocytes Absolute 2.05 1.00 - 5.00 K/mcL LAB HEMETOLOGY METHOD 09/22/2024 7:40 PM [facility] Monocytes Absolute 0.84 0.20 - 1.00 K/mcL LAB HEMETOLOGY METHOD 09/22/2024 7:40 PM [facility] Eosinophils Absolute 0.12 0.00 - 0.50 K/mcL LAB HEMETOLOGY METHOD 09/22/2024 7:40 PM [facility] Basophils Absolute 0.05 0.00 - 0.20 K/mcL LAB HEMETOLOGY METHOD 09/22/2024 7:40 PM [facility] Immature Granulocytes Absolute 0.02 0.00 - 0.03 K/mcL LAB HEMETOLOGY METHOD 09/22/2024 7:40 PM [facility] Blood Venous blood specimen / Unknown 09/22/2024 09/22/2024 6:24 PM EST us Troy GAR LAB BLOOD ORDERABLES Final Res ult [facility] [address] [place] [address], * Vitamin D 25 hydroxy (09/22/2024 12:00 AM EST) Vit D, 25-Hydroxy 30.1 30.0 - 80.0 ng/mL LAB CHEMISTRY METHOD 09/22/2024 8:21 PM EST [facility] Blood Venous blood specimen / Unknown 09/22/2024 09/22/2024 6:24 PM EST Troy GAR LAB BLOOD ORDERABLES Final Res ult [facility] [address] [place] [address], * B-type natriuretic peptide (09/22/2024 12:00 AM EST) BNP 17 <=100 pcg/mL LAB CHEMISTRY METHOD 09/22/2024 8:32 PM EST [facility] Blood Venous blood specimen / Unknown 09/22/2024 09/22/2024 6:24 PM EST Troy GAR LAB BLOOD ORDERABLES Final Res ult Performing Organization Address City/[facility]/ZIP Co de Phone Number [facility] [address] [place] [address], * Magnesium (09/22/2024 12:00 AM EST) Pathologist [facility] Magnesium 2.1 1.9 - 2.6 mg/dL LAB CHEMISTRY METHOD 09/22/2024 8:12 PM EST [facility] Blood Venous blood specimen / Unknown 09/22/2024 09/22/2024 6:24 PM EST us Troy GAR LAB BLOOD ORDERABLES Final Res ult [facility] [address] [place] [address], [place] [phone] * LDL cholesterol, direct (09/22/2024 12:00 AM EST) [facility] LDL Direct 59 <=100 mg/dL LAB CHEMISTRY METHOD 09/22/2024 8:12 PM EST [facility] Blood Venous blood specimen / Unknown 09/22/2024 09/22/2024 6:24 PM EST us Troy GAR LAB BLOOD ORDERABLES Final Res ult [facility] [address] [place] [address], [place] [phone] * Vitamin B12 (09/22/2024 12:00 AM EST) [facility] Vitamin B-12 560 250 - 900 pcg/mL LAB CHEMISTRY METHOD 09/22/2024 8:34 PM EST [facility] Blood Venous blood specimen / Unknown 09/22/2024 09/22/2024 6:24 PM EST us Troy GAR LAB BLOOD ORDERABLES Final Res ult [facility] [address] [place] [address], [place] [phone] * (ABNORMAL) Comprehensive metabolic panel (09/22/2024 12:00 AM EST) [facility] Sodium 141 133 - 145 mmol/L LAB CHEMISTRY METHOD 09/22/2024 8:12 PM EST [facility] Potassium 4.3 3.5 - 5.5 mmol/L LAB CHEMISTRY METHOD 09/22/2024 8:12 PM [facility] Chloride 111(H) 96 - 110 mmol/L LAB CHEMISTRY METHOD 09/22/2024 8:12 PM [facility] CO2 26 21 - 32 mmol/L LAB CHEMISTRY METHOD 09/22/2024 8:12 PM [facility] Anion Gap 4 3 - 11 LAB CHEMISTRY METHOD 09/22/2024 8:12 PM [facility] Glucose 101(H) 70 - 100 mg/dL LAB CHEMISTRY METHOD 09/22/2024 8:12 PM [facility] BUN 20 5 - 25 mg/dL LAB CHEMISTRY METHOD 09/22/2024 8:12 PM [facility] Creatinine 0.93 0.70 - 1.30 mg/dL LAB CHEMISTRY METHOD 09/22/2024 8:12 PM [facility] eGFR 78 >=60 mL/min/1. 73m2 LAB CHEMISTRY METHOD 09/22/2024 8:12 PM [facility] Comment:Calculation based on the??Chronic Kidney Disease Epidemiology Collaboration (CKD-EPI) equation refit??without adjustment for race. BUN/Creatinine Ratio 21.5 LAB CHEMISTRY METHOD 09/22/2024 8:12 PM [facility] Calcium 9.2 8.5 - 10.5 mg/dL LAB CHEMISTRY METHOD 09/22/2024 8:12 PM [facility] AST (SGOT) 22 10 - 42 unit/L LAB CHEMISTRY METHOD 09/22/2024 8:12 PM [facility] ALT (SGPT) 36 10 - 60 unit/L LAB CHEMISTRY METHOD 09/22/2024 8:12 PM [facility] Alkaline Phosphatase 160(H) 42 - 121 unit/L LAB CHEMISTRY METHOD 09/22/2024 8:12 PM [facility] Total Protein 7.1 6.0 - 8.0 g/dL LAB CHEMISTRY METHOD 09/22/2024 8:12 PM [facility] Albumin 3.7 3.2 - 5.0 g/dL LAB CHEMISTRY METHOD 09/22/2024 8:12 PM [facility] Total Bilirubin 0.7 0.0 - 1.4 mg/dL LAB CHEMISTRY METHOD 09/22/2024 8:12 PM EST [facility] Blood Venous blood specimen / Unknown 09/22/2024 09/22/2024 6:24 PM EST Troy GAR LAB BLOOD ORDERABLES Final Res ult [facility] [address] [place] [address], [place] [phone] * Hemoglobin A1c (08/04/2024 4:02 PM EST) Hemoglobin A1C 5.7 <6.5 % LAB CHEMISTRY METHOD 08/04/2024 9:28 PM EST [facility] Mean Bld Glu Estim. 117 mg/dL LAB CHEMISTRY METHOD 08/04/2024 9:28 PM EST [facility] Blood Venous blood specimen / Unknown Venipuncture / Unknown 08/04/2024 4:02 PM EST 08/04/2024 4:32 PM EST Bakari Akhtar MD LAB BLOOD ORDERABLES Final Result Performing Organization Address [facility]/ZIP Co de Phone Number [facility] [address] [place] [address], [place] [phone] from Last 3 Months or Most Recently Relevant to Health Maintenance [place] [id number] MEDICARE [facility] Care Teams V Belt Builder Relationship Specialty Start Date End Date Bakari Akhtar MD [address] [place] [address] PCP - General Internal Medicine 03/11/13
--- OUTSIDE RECORDS SUMMARY | 2024-11-16 10:46 | XMS_ITS ---
Author Name [facility] [place] Organization [facility] [place] Address [address] [place] [address] Care Team Providers Care Parliamentary Librarian Name Role Phone GILES FUENTES Primary Care [...] CAREMARK PRESCRIPT ION SREEKANTH Sep 14, 2014 [id number] [phone] FANY LEMUS ON PATIENT CAREMARK PRESCRIPT ION SUSI ATKINSON Sep 14, 2014 [id number] [phone] FANY LEMUS ON PATIENT CAREMARK PRESCRIPT ION Sep 14, 2014 [id number] [phone] ALALN,MYR ON PATIENT GEHA (SECONDARY ) PREFERRED PROVIDER ORGANIZAT ION (PPO) HIGH OPTIO N MCR A&B Sep 14, 2005 [id number] [id number] ALLAN,MYR ON PATIENT GEHA (SECONDARY ) PREFERRED PROVIDER ORGANIZAT ION (PPO) GEHA CONNE CTION DENT Sep 14, 2005 [id number] ALLAN,MYR ON PATIENT GEHA FEHB PREFERRED PROVIDER ORGANIZAT ION (PPO) SUSI AL GOV Sep 14, 2005 [id number] ALTH [id number] ALLAN,MYR ON PATIENT GEHA FEHB PREFERRED PROVIDER ORGANIZAT ION (PPO) SUSI AL* Sep 14, 1989 [id number] ALTH [id number] ALLAN,MYR ON PATIENT GEHA-BEHAV [facility] GEHA HIGH OPTIO N Sep 14, 2021 [id number] [phone] ALLAN,MYR ON PATIENT MEDICARE (WNR) MEDICARE (M) PART A May 15, 2000 PART A [id number] ALLAN,MYR ON PATIENT MEDICARE (WNR) MEDICARE (M) PART B May 15, 2000 PART B [id number] ALLAN,MYR ON PATIENT MEDICARE (WNR) MEDICARE (M) PART A May 15, 2000 PART A [id number] [phone] ALLAN,MYR ON PATIENT MEDICARE (WNR) MEDICARE (M) PART B May 15, 2000 PART B [id number] ALLAN,MYR ON PATIENT MEDICARE (WNR) MEDICARE (M) PART B May 15, 2000 PART B [id number] [phone] ALLAN,MYR ON PATIENT MEDICARE (WNR) MEDICARE (M) PART A May 15, 2000 PART A [id number] ALLAN,MYR ON PATIENT MEDICARE (WNR) MEDICARE (M) PART A May 15, 2000 PART A [id number] [phone] FANY LEMUS ON PATIENT MEDICARE (WNR) MEDICARE (M) PART B May 15, 2000 PART B [id number] FANY LEMUS ON PATIENT Selected Encounter This section includes the information on record at [place] for the Encounter. Date/Time Encounter Type Encounter Description Reason Provider Source Mar 24, 2024 01:30 PM OFFICE O/P EST MOD 30 MIN OPTOMETRY ICD-10-CM H54.8 Legal blindness, as defined in [place] GEORGIANA LIMA Encounter Template Text not used by [place] Assessments - Encounter Diagnoses This section includes the primary and secondary diagnoses documented for the Encounter. Date/Time Primary/Secondary Diagnosis Diagnosis Name Provider Source Apr 26, 2024 02:59 PM PRIMARY Legal blindness, as defined in [place] RON LIMA [place] [facility] [place] [facility] Apr 26, 2024 02:59 PM SECONDARY Combined forms of age-related cataract, bilateral RON LIMA [place] [facility] [place] [facility] Apr 26, 2024 02:59 PM SECONDARY Exudative age-rel mclr degn, left eye, with inactive scar RON LIMA [place] [facility] [place] [facility] Apr 26, 2024 02:59 PM SECONDARY Exudative age-rel mclr degn, right eye, with inactive scar RON LIMA [place] [facility] [place] [facility] Apr 26, 2024 02:59 PM SECONDARY Type 2 diabetes mellitus without complications [facility] [place] [facility] Plan of Treatment: Future Appointments (+ 6 months) and Future Tests (+/- 45 days) The Plan of Treatment section includes future care activities for the patient from all [place] treatmentfacilities. This section includes future appointments and future orders which are active, pending or scheduled. Future Appointments This section includes appointments that were scheduled to occur 6 months from the date of the Encounter, up to a maximum of 20 appointments. The data comes from all [place] treatment facilities. Appointment Date/Time Appointment Type Appointme nt Facility Name Mar 31, 2024 11:00 AM AMBULATORY - [place] [facility] [place] [facility] Mar 31, 2024 01:00 PM [facility] [place] [place] [facility] [place] [facility] May 04, 2024 01:00 PM AMBULATORY - [facility] [place] [facility] [place] [facility] Jun 03, 2024 11:30 AM AMBULATORY - MEDICINE [facility] Vital Signs: All taken on the encounter date This section contains inpatient and outpatient Vital Signs collected on the date of the Encounter. Date/Time Temperature Pulse Blood Pressure Respiratory Rate SP02 Pain Height Weight Body Mass Index Source Mar 24, 2024 11:00 AM 97.1 94 118/70 18 92 0 197.6 28 [place] [facility] [place] [facility] Social History: Smoking Status (Most current) and Tobacco Use (All prior to encounter date) This section includes the most current, and the historical, smoking and tobacco- related health factors from the [place] facility where the Encounter took place. Current Smoking Status This section includes the most current smoking, or tobacco-related health factor, from the [place] facility where the Encounter took place. Date/Time Current Smoking Status Comment Facil ity Sep 02, 2023 05:30 PM VA-TOBACCO QUIT 15 YRS OR MORE [place] [facility] Tobacco Use History This section includes a history of the smoking, or tobacco-related health factors, that were collected on or before the date of the Encounter. The data comes from the [place] facility where the Encounter took place. Date/Time Smoking Status/Tobacco Use Comment F acility Sep 02, 2023 05:30 PM VA-TOBACCO QUIT 15 YRS OR MORE [place] [facility] [place] [facility] Apr 24, 2022 01:00 PM VA-TOBACCO FORMER USER [place] [facility] [place] [facility] Apr 24, 2022 01:00 PM VA-TOBACCO QUIT 15 YRS OR MORE [place] [facility] [place] [facility] Dec 05, 2021 02:00 PM VA-TOBACCO USE DEC LINED TO ANSWER [place] [facility] [place] [facility] Nov 24, 2021 04:05 PM VA-TOBACCO USE DEC LINED TO ANSWER [place] [facility] [place] [facility] Sep 20, 2020 08:40 AM VA-TOBACCO NEVER USED [place] [facility] [place] [facility] Advance Directives: All historical and current Section Date Range: From patient's date of to the date document was created. This section includes ALL of a patient's completed or amended VA Advance and Rescinded Directives. The entries below indicate that a directive exists for the patient, but an actual copy is not included with this document. The data comes from all [place] facilities. Date Advance Directives Provider Source Nov 11, 2016 ADVANCE DIRECTIVE ELROY CHÁVEZ [place] [facility] Jul 08, 2006 ADVANCE DIRECTIVE [facility] Encounter Notes: All associated encounter notes This section contains the clinical notes associated to the Encounter. Date/Time Encounter Note(s) Provider Source Mar 24, 2024 02:03 PM OPTOMETRY NOTE: LOCAL TITLE: OPTOMETRY NOTE STANDARD TITLE: OPTOMETRY NOTE DATE OF NOTE: MAR 24, 2024@14:03 ENTRY DATE: MAR 24, 2024@14:03:15 AUTHOR: RAJ LIMA COSIGNER: URGENCY: STATUS: COMPLETED I saw this patient in conjunction with the student and agree with stated findings and plan as noted below after reviewing both the history and repeating rosado elements of the physical exam now. 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 He has been noted for several years to some have some component of narrow angle glaucoma as well and previously referred to [facility] for prophylactic laser iridotomy. Dr. Collazo had conferred conferred with his retina specialist at [facility] regarding LPI's with recommendation to monitor and defer laser iridotomy's. Since then he is followed by Dr. Garay who did not feel he required laser iridotomy's and he subsequently underwent SLT laser each eye and 2020. 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 His current glaucoma regimen consists of timolol 0.5% twice a day each eye Simbrinza twice a day each eye as well as latanoprost at bedtime each eye. IOP today each eye shows more than 30% reduction in IOP compared to pretreatment levels on topical therapy after SLT laser x1 each eye. 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 Given extensive fibrotic scarring continuation with retina specialist is currently not required with limited visual potential with repeat treatment or injection. History of diabetes without retinopathy or macular edema. Dilation deferred today due to ongoing community care. 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 Anterior segment OCT obtained today which shows bilateral anatomically narrow angles that do not appear occludable on OCT today. 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 Bilateral brunescent nuclear sclerotic and cortical cataracts with limited retinal view. Cataract surgery has been offered to patient who is declined and prefers continued observation. Plan: Patient education as noted above reviewed exam findings now. He is community care consult for Dr. Garay expires October 13, 2024. Continue all ocular medication as noted above including AREDS 2 twice a day by mouth. Return here in 12 months for repeat ocular health assessment or sooner if need be. He is actively followed by [facility] here as well. Total time spent reviewing previous records, examining patient and entering orders 33 minutes. Medication Reconciliation: Outpatient: Has the patient been taking medications as documented in the EMLR? YES: The patient has been taking medications as documented in the EMLR. Essential Medication List for Review used to complete this medication reconciliation. INCLUDED IN THIS LIST: Alphabetical list of active outpatient prescriptions dispensed from this VA (local) and dispensed from another [place] or [facility] facility (remote) as well as inpatient orders [...] whether with a VA or non-VA provider. JLV Link Data on this list may not be complete. Please check JLV. Allergies/ADRs (Tool #5) FACILITY ALLERGY/ADR -------- [place] [facility] [place] [facility]FA DRUGS [facility] INFLUENZA [facility] SULFA DRUGS Med Recon NoGloary (Tool #1) INCLUDED IN THIS LIST: Alphabetical list of active outpatient prescriptions dispensed from this [place] (local) and dispensed from another [place] or [facility] facility (remote) as well as inpatient orders (local pending and active), local clinic medications, locally documented non-VA medications, and local prescriptions that have or been discontinued in the past 90 days. Non-VA Meds Last Documented On: Dec 21, 2023 NOTE The display of VA prescriptions dispensed from another [place] or [facility] facility (remote) is limited to active outpatient prescription entries matched to National Drug File at the originating site and may not include some items such as investigational drugs, compounds, etc. NOT INCLUDED IN THIS LIST: Medications self-entered by the patient into personal health records (i.e. [facility]) are NOT included in this list. Non-VA medications documented outside this [place], remote inpatient orders (regardless of status) and remote clinic medications are NOT included in this list. The patient and provider must always discuss medications the patient is taking, regardless of where the medication was dispensed or obtained. OUTPT ACETAMINOPHEN 500MG TAB (Status = Active) TAKE TWO TABLETS BY MOUTH THREE TIMES DAILY NEEDED FOR PAIN Rx# [id number] Last Released: 09/16/23 Qty/Days Supply: 200/34 Rx Expiration Date: 09/15/24 Refills Remainin Indication: FOR PAIN OUTPT ALOGLIPTIN 25MG TAB (Status = Active/Suspended) TAKE ONE TABLET BY MOUTH ONCE DAILY IN PLACE OF SITAGLIPTIN Rx# [id number] Last Released: 01/19/24 Qty/Days Supply: Rx Expiration Date: 11/06/24 Refills Remainin Indication: FOR TYPE 2 DIABETES MELLITUS OUTPT AMLODIPINE BESYLATE 10MG TAB (Status = Active) TAKE ONE TABLET BY MOUTH ONCE DAILY FOR BLOOD PRESSURE/HEART, DO NOT TAKE WITH GRAPEFRUIT JUICE Rx# [id number] Last Released: 01/25/24 Qty/Days Supply: Rx Expiration Date: 04/20/24 Refills Remainin OUTPT ASPIRIN 81MG EC TAB (Status = Active) TAKE ONE TABLET BY MOUTH ONCE DAILY TO PREVENT STROKE/HEART ATTACK Rx# [id number] Last Released: 02/15/24 Qty/Days Supply: 120 Rx Expiration Date: 02/10/25 Refills Remainin Indication: FOR BLOOD CLOT PREVENTION FOLLOWING PCI OUTPT ATORVASTATIN CALCIUM 80MG TAB (Status = Active) TAKE ONE TABLET BY MOUTH ONCE DAILY FOR CHOLESTEROL Rx# [id number] Last Released: 01/19/24 Qty/Days Supply: Rx Expiration Date: 10/01/24 Refills Remainin OUTPT BRIMONIDINE 0.2%/BRINZOLAMID 1% OPH SUSP (Status = Active) INSTILL 1 DROP INTO EACH EYE TWICE DAILY Rx# [id number] Last Released: 01/05/24 Qty/Days Supply: Rx Expiration Date: 11/26/24 Refills Remainin OUTPT CARVEDILOL 3.125MG TAB (Status = Active) TAKE ONE TABLET BY MOUTH TWICE DAILY FOR HIGH BLOOD PRESSURE Rx# [id number] Last Released: 03/09/24 Qty/Days Supply: 180 Rx Expiration Date: 03/09/25 Refills Remainin Indication: FOR HIGH BLOOD PRESSURE OUTPT CHOLECALCIF 25MCG (D3-1,000UNIT) TAB (Status = Active) TAKE ONE TABLET BY MOUTH ONCE DAILY FOR VITAMIN SUPPLEMENTATION Rx# [id number] Last Released: 03/08/24 Qty/Days Supply: Rx Expiration Date: 08/04/24 Refills Remainin OUTPT DOCUSATE NA 100MG CAP (Status = Active) TAKE ONE CAPSULE BY MOUTH TWICE DAILY NEEDED TO SOFTEN STOOL Rx# [id number] Last Released: 11/09/23 Qty/Days Supply: 100/50 Rx Expiration Date: 10/28/24 Refills Remainin Indication: FOR CONSTIPATION OUTPT EPLERENONE 25MG TAB (Status = Active) TAKE ONE TABLET BY MOUTH ONCE DAILY FOR HIGH BLOOD PRESSURE Rx# [id number] Last Released: 02/10/24 Qty/Days Supply: 90 Rx Expiration Date: 09/15/24 Refills Remainin Indication: FOR HIGH BLOOD PRESSURE Non-VA FLUTICASONE/UMECLID/VILANT (TRELEGY 200) INHL,ORAL INHALE BY MOUTH ONCE DAILY OUTPT KETOCONAZOLE 2% SHAMPOO (Status = Active) SHAMPOO SMALL AMOUNT TOPICALLY ONCE DAILY Rx# [id number] Last Released: 11/09/23 Qty/Days Supply: 120/90 Rx Expiration Date: 10/28/24 Refills Remainin Indication: FOR FUNGAL INFECTION OF THE SKIN OUTPT LATANOPROST 0.005% OPH SOLN (Status = Discontinued) INSTILL 1 DROP INTO EACH EYE AT BEDTIME Rx# [id number] Last Released: 11/27/23 Qty/Days Supply: 12 Rx Expiration Date: 11/26/24 Refills Remainin OUTPT LATANOPROST 0.005% OPH SOLN (Status = Active/Suspended) INSTILL 1 DROP INTO EACH EYE AT BEDTIME Rx# [id number] Last Released: Qt/Days Supply: Rx Expiration Date: 01/11/25 Refills Remainin OUTPT LOSARTAN 100MG TAB (Status = Active) TAKE ONE TABLET BY MOUTH ONCE DAILY FOR BLOOD PRESSURE/HEART Rx# [id number] Last Released: 03/15/24 Qty/Days Supply: 90 Rx Expiration Date: 10/01/24 Refills Remainin Indication: FOR HIGH BLOOD PRESSURE OUTPT MULTIVIT/OPHTH AREDS2/LUTE/ZEAX CAP/TAB (Status = Active) TAKE 1 CAPSULE BY MOUTH TWICE DAILY IN THE MORNING AND EVENING, WITH FOOD Rx# [id number] Last Released: 03/08/24 Qty/Days Supply: 120/60 Rx Expiration Date: 03/25/24 Refills Remainin Non-VA OXYGEN MISCELLANEOUS USE 2 LITERS VIA NC AT NIGHT DIRECTED NEEDED Medication prescribed by Non-VA provider. OUTPT POLYETHYLENE GLYCOL 3350 ORAL PWDR (Status = ) TAKE 17 GRAMS(FILL CAP TO 17GM LINE) BY MOUTH ONCE DAILY NEEDED FOR CONSTIPATION [MIX WITH 4 TO 8OZ. OF BEVERAGE] Rx# [id number] Last Released: 11/09/23 Qty/Days Supply: Rx Expiration Date: 01/26/24 Refills Remainin Indication: FOR CONSTIPATION OUTPT PRIMIDONE 50MG TAB (Status = Active) TAKE ONE TABLET BY MOUTH THREE TIMES A DAY Rx# [id number] Last Released: 03/15/24 Qty/Days Supply: Rx Expiration Date: 10/01/24 Refills Remainin OUTPT TIMOLOL MALEATE 0.5% OPH GEL (Status = Active) APPLY 1 DROP INTO EACH EYE TWICE DAILY Rx# [id number] Last Released: 10/06/23 Qty/Days Supply: Rx Expiration Date: 07/14/24 Refills Remainin OUTPT TIMOLOL MALEATE 0.5% OPH SOLN (Status = Active) INSTILL 1 DROP INTO EACH EYE TWICE DAILY Rx# [id number] Last Released: 03/09/24 Qty/Days Supply: Rx Expiration Date: 11/26/24 Refills Remainin OUTPT TORSEMIDE 20MG TAB (Status = Discontinued) TAKE ONE TABLET BY MOUTH ONCE DAILY Rx# [id number] Last Released: 01/19/24 Qty/Days Supply: Rx Expiration Date: 07/20/24 Refills Remainin OUTPT TORSEMIDE 20MG TAB (Status = Active) TAKE ONE TABLET BY MOUTH ONCE DAILY Rx# [id number] Last Released: 03/15/24 Qty/Days Supply: Rx Expiration Date: 02/10/25 Refills Remainin SUPPLIES OUTPT PRODIGY NO CODE (GLUCOSE) TEST STRIP (Status = ) USE 1 STRIP TO TEST BLOOD SUGARS TWICE A WEEK NEEDED Rx# [id number] Last Released: 03/12/23 Qty/Days Supply: 50/90 Rx Expiration Date: 03/03/24 Refills Remainin Declines printed copy of medication list now. /esthela/ Raj Lima OD CHIEF OF OPTOMETRY Signed: 03/24/2024 14:15 RAJ LIMA [facility] [place] [facility] Mar 24, 2024 01:15 PM OPTOMETRY NOTE: LOCAL TITLE: OPTOMETRY NOTE STANDARD TITLE: OPTOMETRY NOTE DATE OF NOTE: MAR 24, 2024@13:15 ENTRY DATE: MAR 24, 2024@13:15:47 AUTHOR: TIKA DAVIES EXP COSIGNER: RAJ LIMA URGENCY: STATUS: COMPLETED Active problems - Computerized Problem List is the source for the followin. Dependence on nocturnal oxygen therapy 2. Under care of multiple providers 3. Tremor 4. Narrow angle glaucoma 5. Diabetes mellitus 6. Ex-smoker 7. Chronic ischemic heart disease (SNOMED CT 146420416) 8. Coronary artery disease 9. Exudative age-related macular degeneration (SNOMED CT 319042350) 10. Gastroesophageal reflux disease without esophagitis 11. 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 Personal History of Colonic Polyps 13. Obesity 14. Essential hypertension (SNOMED CT 48027065) 15. Hyperlipidemia (SNOMED CT 65962585) 16. Osteoarthritis (SNOMED CT 267213364) 17. Chronic obstructive lung disease (SNOMED CT 55760007) 18. Prostate cancer (SNOMED CT 693328413) 19. Legal blindness (SNOMED CT 19308352) 20. H/O: tuberculosis 21. Asbestosis (SNOMED CT 47086123) Active Outpatient Medications (including Supplies): Active Outpatient [...] BY ACTIVE MOUTH ONCE DAILY FOR CHOLESTEROL 6) BRIMONIDINE [...] ONCE ACTIVE DAILY FOR HIGH BLOOD PRESSURE 11) KETOCONAZOLE [...] NIGHT ACTIVE DIRECTED NEEDED 20 Total Medications Allergies: SULFA DRUGS All medications including those prescribed by outside VA's, community providers, and all OTC meds were reviewed and reconciled with patient to the best of their abilities. This 88 year old MALE is seen today for IOP check with imaging/Ant-seg OCT. Chief Complaint: Patient reports no major changes. Previously saw Dr Garay 6 months ago. Patient reports taking three drops. Two are twice a day, one is at night before bedtime. Timolol BID, Brimonidine BID and Latanoprost QHS OHx: 1. Type II Diabetes without evidence of retinopathy or macular edema OU 2. Exudative Macular Degeneration OU 3. POAG OU 4. Combined Cataracts 5. Blepharitis OU (-) Pain: (-) CROWLEY: (-) Diplopia: (-) Flashes: (-) Floaters: (-) Amaurosis Fugax/Tia's: (-) Eye Injury: (+) Eye Surgery: SLT OU (-) TBI FOHx: (-) Glaucoma/ARMD/Blindness (-) Smoker/Length of Time/PPD: Current Rx with last BCVA: OD +2.25 -1.00 X180 Hand motion OS +2.75 -0.50 X55 CF @4ft DVA ( )sc ( x )cc OD: hand motion in temporal field OS: 5/100+ with feinbloom Pupils: fixed miotic pupil OS, slow light response OS (-) APD EOMs: SAFE OU, (-)Pain/Diplopia CVF (facial, peripheral): can only see motion in temporal field OD, relatively full OS with counting fingers Subjective Refraction: patient followed in low vision All the above performed by student, reviewed by attending Anterior segment: Performed by student, repeated by attending Lids: dermatochalasis OU Conj: white and quiet OU Cornea: arcus 360 OU with 1-2+ diffuse SPK and poor tear film OU AC: 3x3 OU Iris: flat and clear OU (-) NVI OU Lens: heavy pseudoexfoliation around pupillary margin right eye, 4+ brunescent NS with 4+ PSC and 3+ ACC OD 3-4+ NS with 3+ ACC OS Tonometry: GAT Performed by student, reviewed by attending OD 12 mmHg OS 12 mmHg Time: 1:58pm Last IOP: OD: 11mmHg OS: 12mmHg PreTreatment IOP: OD: 22 mmHg OS: 28 mmHg Pachymetry: 572 OD 541 OS Non dilated: xxx Poor views due to dense cataracts with miotic pupils Assessment/Plan: 1. Type 2 diabetes without evidence of retinopathy or macular edema OU. Patient ed on condition and findings. Stressed importance of strict blood glucose control and attending follow up appointments. Monitor. 2. Exudative macular degeneration with inactive scarring OU. Condition stable to previous. Patient to continue taking AREDS2 BID PO. Patient is legally blind, followed by Dr. Garay twice a year. Monitor. 3. Primary open angle glaucoma OU. Patient followed by Dr Garay for management. Patient to continue with Timolol BID OU, Brimonidine BID OU and Latanoprost QHS OU. Patient previously referred for LPI but was deferred by previous retina specialist. Dr Garay performed SLT OU. Monitor in 1 year with IOP check. 4. Combined cataracts OU, with pseudoexfoliation OD. Cataracts extremely dense and stuck to pupil, preventing dilation and view of posterior segment. Dr Garay told patient surgery was not likely to improve his vision so patient opted to not have surgery. Ant Seg OCT taken today showing narrow angles OU. Defer dilation to follow up care with Dr Garay. Continue to monitor. Return to Clinic 1 year or earlier PRN Patient Education: Diabetes: Patient was educated regarding diabetes and related ocular complications including retinopathy and cataract formation as well as other related systemic complications. The importance of good blood sugar control, blood sugar testing as recommended by their PCP and the importance of timely follow up were all emphasized. Glaucoma: Patient was educated regarding glaucoma/glaucoma suspect as well as the natural history of this diagnosis including prognosis. Stress importance of compliance and persistency with glaucoma medication when prescribed, timely follow up as well as the role of ancillary testing. Exclusion criteria for ancillary testing include significantly reduced acuity, mental status changes affecting the patient's ability to attend to the test or other physical limitations that would prohibit the patient's ability to participate in testing. Macular Degeneration: Patient was educated regarding macular degeneration including both wet and dry varieties as well as the natural history and prognosis of this condition. Education included the role of amsler grid testing , ocular nutraceutical therapy as well as diet and healthy lifestyle choices when applicable. Exclusion criteria includes extremely reduced acuity or cognitive decline for amsler grid testing and other coexisting systemic contraindication for supplements, diet and exercise. /esthela/ TIKA DAVIES OPTOMETRY STUDENT Signed: 03/24/2024 17:01 /esthela/ Raj Lima OD CHIEF OF OPTOMETRY Cosigned: 03/28/2024 07:57 TIKA DAVIES CNTL [facility]
--- OUTSIDE RECORDS SUMMARY | 2024-11-16 10:46 | XMS_ITS | Encounter Summary ---
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 Name Role Phone GILES FUENTES Primary [...] CAREMARK PRESCRIPT ION GEHA Sep 14, 2014 [id number] FANY LEMUS ON PATIENT CAREMARK PRESCRIPT ION SUSI AL EMPLO [place] HEA Sep 14, 2014 [id number] [phone] FANY LEMUS ON PATIENT CAREMARK PRESCRIPT ION Sep 14, 2014 [id number] [phone] FANY LEMUS ON PATIENT GEHA (SECONDARY ) PREFERRED PROVIDER ORGANIZAT ION (PPO) HIGH OPTIO N MCR A&B Sep 14, 2005 [id number] [id number] [phone] ALLAN,MYR ON PATIENT GEHA (SECONDARY ) PREFERRED PROVIDER ORGANIZAT ION (PPO) GEHA CONNE CTION DENT Sep 14, 2005 [id number] [phone] ALLAN,MYR ON PATIENT GEHA FEHB PREFERRED PROVIDER ORGANIZAT ION (PPO) SUSI AL GOV Sep 14, 2005 [id number] [id number] [phone] ALLAN,MYR ON PATIENT GEHA FEHB PREFERRED PROVIDER ORGANIZAT ION (PPO) SUSI AL* Sep 14, 1989 [id number] ALTH [id number] [phone] ALLAN,MYR ON PATIENT GEHA-BEHAV [facility] GEHA HIGH OPTIO N Sep 14, 2021 [id number] [phone] [id number] [phone] ALLAN,MYR ON PATIENT MEDICARE (WNR) MEDICARE (M) PART B May 15, 2000 PART B [id number] ALLAN,MYR ON PATIENT MEDICARE (WNR) MEDICARE (M) PART A May 15, 2000 PART A [id number] ALLAN,MYR ON PATIENT MEDICARE (WNR) MEDICARE (M) PART B May 15, 2000 PART B [id number] ALLAN,MYR ON PATIENT MEDICARE (WNR) MEDICARE (M) PART A May 15, 2000 PART A [id number] ALLAN,MYR ON PATIENT MEDICARE (WNR) MEDICARE (M) PART A May 15, 2000 PART A [id number] ALLAN,MYR ON PATIENT MEDICARE (WNR) MEDICARE (M) PART B May 15, 2000 PART B [id number] ALLAN,MYR ON PATIENT MEDICARE (WNR) MEDICARE (M) PART A May 15, 2000 PART A [id number] ALLAN,MYR ON PATIENT MEDICARE (WNR) MEDICARE (M) PART B May 15, 2000 PART B [id number] FANY LEMUS ON PATIENT Selected Encounter This section includes the information on record at [place] for the Encounter. Date/Time Encounter Type Encounter Description Reason Pro vider Source IHE Encounter Template Text not used by [place] Advance Directives: All historical and current Section Date Range: From patient's date of to the date document was created. This section includes ALL of a patient's completed or amended [place] Advance and Rescinded Directives. The entries below indicate that a directive exists for the patient, but an actual copy is not included with this document. The data comes from all [place] facilities. Date Advance Directives Provider Source Nov 11, 2016 ADVANCE DIRECTIVE ELROY CHÁVEZ [place] [facility] Jul 08, 2006 ADVANCE DIRECTIVE CHAPARRO DICK [facility]
--- OUTSIDE RECORDS SUMMARY | 2024-11-16 10:46 | XMS_ITS ---
Author Name [facility] [facility] [place] [facility] [place] [facility] [place] Address [address] [place] [id number] Care Team Providers Care Robot Programmer Name Role Phone GINAGILES Barfield Primary Care Provider UnavailBILLIE Lr Unavailable Unavailable [...] CAREMARK PRESCRIPT ION SREEKANTH Sep 14, 2014 [id number] FANY LEMUS ON PATIENT CAREMARK PRESCRIPT ION SUSI ATKINSON Sep 14, 2014 [id number] FANY LEMUS ON PATIENT CAREMARK PRESCRIPT ION Sep 14, 2014 [id number] ALLAN,MYR ON PATIENT GEHA (SECONDARY ) PREFERRED PROVIDER ORGANIZAT ION (PPO) HIGH OPTIO N [facility] A&B Sep 14, 2005 [id number] ALLAN,MYR ON PATIENT GEHA (SECONDARY ) PREFERRED PROVIDER ORGANIZAT ION (PPO) GEHA CONNE CTION DENT Sep 14, 2005 [id number] ALLAN,MYR ON PATIENT GEHA FEHB PREFERRED PROVIDER ORGANIZAT ION (PPO) SUSI AL GOV Sep 14, 2005 [id number] [id number] ALLAN,MYR ON PATIENT GEHA FEHB PREFERRED PROVIDER ORGANIZAT ION (PPO) SUSI AL* Sep 14, 1989 [id number] ALTH [id number] ALLAN,MYR ON PATIENT GEHA-BEHAV [facility] GEHA HIGH OPTIO N Sep 14, 2021 [id number] ALLAN,MYR ON PATIENT MEDICARE (WNR) MEDICARE (M) PART A May 15, 2000 PART A [id number] ALLAN,MYR ON PATIENT MEDICARE (WNR) MEDICARE (M) PART B May 15, 2000 PART B [id number] ALLAN,MYR ON PATIENT MEDICARE (WNR) MEDICARE (M) PART B May 15, 2000 PART B [id number] ALLAN,MYR ON PATIENT MEDICARE (WNR) MEDICARE (M) PART A May 15, 2000 PART A [id number] ALLAN,MYR ON PATIENT MEDICARE (WNR) MEDICARE (M) PART A May 15, 2000 PART A [id number] ALLAN,MYR ON PATIENT MEDICARE (WNR) MEDICARE (M) PART B May 15, 2000 PART B [id number] [phone] ALLAN,MYR ON PATIENT MEDICARE (WNR) MEDICARE (M) PART A May 15, 2000 PART A [id number] ALLAN,FANY ON PATIENT MEDICARE (WNR) MEDICARE (M) PART B May 15, 2000 PART B [id number] [id number] ALLAN,FANY ON PATIENT Selected Encounter This section includes the information on record at [place] for the Encounter. 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 Date/Time Primary/Secondary Diagnosis Diagnosis Name Provider Source Sep 02, 2024 09:08 AM PRIMARY Dependence on supplemental oxygen GILES FUENTES [place] [facility] [place] [facility] Sep 02, 2024 09:08 AM SECONDARY Athscl heart disease of [place] coronary artery w/o ang pctrs GILES FUENTES [place] [facility] [place] [facility] Sep 02, 2024 09:08 AM SECONDARY Carcinoma in situ of prostate GILES FUENTES [place] [facility] [place] [facility] Sep 02, 2024 09:08 AM SECONDARY Chronic ischemic heart disease, unspecified GILES FUENTES [place] [facility] [place] [facility] Sep 02, 2024 09:08 AM SECONDARY Contact with and (suspected) exposure to asbestos GILES FUENTES [place] [facility] [place] [facility] Sep 02, 2024 09:08 AM SECONDARY Essential (primary) hypertension GILES FUENTES [place] [facility] [place] [facility] Sep 02, 2024 09:08 AM SECONDARY Exudative age-rel mclr degn, bilateral, stage unspecified GILES FUENTES [place] [facility] [place] [facility] Sep 02, 2024 09:08 AM SECONDARY Gastro-esophageal reflux disease without esophagitis GILES FUENTES [place] [facility] [place] [facility] Sep 02, 2024 09:08 AM SECONDARY Hyperlipidemia, unspecified GILES FUENTES [place] [facility] [place] [facility] Sep 02, 2024 09:08 AM SECONDARY Legal blindness, as defined in [place] GILES FUENTES [place] [facility] [place] [facility] Sep 02, 2024 09:08 AM SECONDARY Other specified chronic obstructive pulmonary disease GILES FUENTES [place] [facility] [place] [facility] Sep 02, 2024 09:08 AM SECONDARY Other specified hearing loss, bilateral GILES FUENTES [place] [facility] [place] [facility] Sep 02, 2024 09:08 AM SECONDARY Primary osteoarthritis, unspecified site GILES FUENTES [place] [facility] [place] [facility] Sep 02, 2024 09:08 AM SECONDARY Tremor, unspecified GILES FUENTES [place] [facility] [place] [facility] Sep 02, 2024 09:08 AM SECONDARY Type 2 diabetes mellitus without complications GILES FUENTES [place] [facility] [place] [facility] Sep 02, 2024 09:08 AM SECONDARY Unsp primary angle-closure glaucoma, stage unspecified GILES FUENTES [place] [facility] [place] [facility] Plan of Treatment: Future Appointments (+ 6 months) and Future Tests (+/- 45 days) The Plan of Treatment section includes future care activities for the patient [facility] [place] [facility] This section includes future appointments and future orders which are active, pending or scheduled. Future Appointments This section includes appointments that were scheduled to occur 6 months from the date of the Encounter, up to a maximum of 20 appointments. The data comes from all [place] treatment facilities. Appointment Date/Time Appointment Type Appointme nt Facility Name Sep 26, 2024 10:00 AM AMBULATORY - REH[facility]IN [facility] [place] [facility] Oct 21, 2024 11:30 AM AMBULATORY - [facility]IC[place] Feb 24, 2025 11:30 AM [facility] Active, Pending, and Scheduled Orders This section includes a listing of several types of active, pending, and scheduled orders, including clinic medications orders, diagnostic test orders, procedure orders and consult orders; where the start date of the order is 45 days before the date of the Encounter or 45 days after the date of theEncounter. The data comes from all [place] treatment facilities. Test Date/Time Test Type Test Details Facility Name Aug 30, 2024 12:00 AM Laboratory - Chemi stry Order BNP (Natriuretic Peptide Brain) BLOOD (LAV-PLASMA) [facility] [place] [facility] Aug 30, 2024 12:00 AM Laboratory - Chemi stry Order BASIC METABOLIC PANEL (non-fasting) BLOOD ([facility]UM[facility] [place] [facility] Vital Signs: All taken on the encounter date This section contains inpatient and outpatient Vital Signs collected on the date of the Encounter. Date/Time Temperature Pulse Blood Pressure Respiratory Rate SP02 Pain Height Weight Body Mass Index Source Aug 31, 2024 01:52 PM 98 67 138/78 18 94 0 [place] [facility] [place] [facility] Social History: Smoking Status (Most current) and Tobacco Use (All prior to encounter date) This section includes the most current, and the historical, smoking and tobacco- related health factors from the [place] facility where the Encounter took place. Current Smoking Status This section includes the most current smoking, or tobacco-related health factor, from the [place] facility where the Encounter took place. Date/Time Current Smoking Status Comment Facil ity Aug 31, 2024 01:52 PM VA-TOBACCO USE FOR BERNICE CIGARETTES [place] [facility] Tobacco Use History This section includes a history of the smoking, or tobacco-related health factors, that were collected on or before the date of the Encounter. The data comes from the [place] facility where the Encounter took place. Date/Time Smoking Status/Tobacco Use Comment F acility Aug 31, 2024 01:52 PM VA-TOBACCO USE FOR BERNICE CIGARETTES [place] [facility] [place] [facility] Sep 02, 2023 05:30 PM VA-TOBACCO FORMER USER [place] [facility] [place] [facility] Sep 02, 2023 05:30 PM VA-TOBACCO QUIT 15 YRS OR MORE [facility] [place] [facility] Apr 24, 2022 01:00 PM VA-TOBACCO FORMER USER [facility] [place] [facility] Apr 24, 2022 01:00 PM VA-TOBACCO QUIT 15 YRS OR MORE [place] [facility] [place] [facility] Dec 05, 2021 02:00 PM VA-TOBACCO USE DEC LINED TO ANSWER [place] [facility] Nov 24, 2021 04:05 PM VA-TOBACCO USE Aug TO ANSWER [place] [facility] Sep 20, 2020 08:40 AM [facility]CO [facility] Advance Directives: All historical and current Section Date Range: From patient's date of to the date document was created. This section includes ALL of a patient's completed or amended [place] Advance and Rescinded Directives. The entries below indicate that a directive exists for the patient, but an actual copy is not included with this document. The data comes from all [place] facilities. Date Advance Directives Provider Source Nov 11, 2016 ADVANCE DIRECTIVE ELROY CHÁVEZ [place] [facility] Jul 08, 2006 ADVANCE DIRECTIVE CHAPARRO DICK [facility] Encounter Notes: All associated encounter notes This section contains the clinical notes associated to the Encounter. Date/Time Encounter Note(s) Provider Source Sep 02, 2024 09:12 AM ADDENDUM: LOCAL TITLE: Addendum STANDARD TITLE: ADDENDUM DATE OF NOTE: SEP 02, 2024@09:12:29 ENTRY DATE: SEP 02, 2024@09:12:30 AUTHOR: GILES UFENTES COSIGNER: URGENCY: STATUS: COMPLETED Mr. Lemus is coming to [facility] in October for podiatry. I requested he get labs then. /esthela/ GILES FUENTES [facility] NURSE PRACTITIONER Signed: 09/02/2024 09:13 Receipt Acknowledged By: 09/02/2024 15:30 /esthela/ Adalgisa Pina RN [facility] air conditioning unit assembler --- Original Document --- 08/31/24 [facility] PROVIDER ASSESSMENT: [place] was seen for: [ ] Initial Review x] Annual Review [ ] Interim Visit Identified by name, , address and facial recognition: Y VVC Ready: Yes [ ] No [x ] HPI:89 yo M seen for annual HB visit. He has no new complaints. PMH as listed below. He is requesting to trial Pola as the cost of Trelegy is a burden. HISTORY: PERIOD OF SERVICE - [id number] FROM Oct TO Apr COMBAT SERVICE INDICATED: No SH: SERVICE CONNECTED % - 10 ASBESTOSIS 0% [place] IMPAIRED HEARING 0% SC TINNITUS 10% [place] MARITAL STATUS - [facility] Providers blind rehab podiatry Non- [facility] Providers [facility] Hospital[facility]- none in >12 mos 05/2024 circucision Social former smoker rare etoh Family History- unknown HM: ( )copy of HCP given (x )Has UTD HCP ( )copy of MOLST given( x)Has UTD MOLST- completed, full code ( )advance directive UTD Recent Falls Y( ) N(x ) Recent Infections Y( ) N(x ) Recent Hospitalizations Y ( ) N(x ) ADLS: Needs assistance with ( )ambulation ( ) dressing ( )toileting ( )transferring ( ) bathing ( ) feeding ( ) transfer ( ) incontinence care Oxygen Safety addressed: yes. Partner noted to have ashtray at kitchen table. Counseled at length regarding risk. She reports only smoking outside. Cognition: No concerns. Counseled on importance of physical activity, healthy diet, socialization and mentally engaging activities to optimize cognitive functioning. Allergies: SULFA DRUGS The following VA and Non-VA meds were reconciled with patient: Active and Recently Outpatient Medications (excluding Supplies): Active Outpatient Medications Status 1) ACETAMINOPHEN 500MG TAB TAKE TWO TABLETS BY MOUTH THREE ACTIVE TIMES DAILY NEEDED Indication: FOR PAIN 2) AMLODIPINE BESYLATE 10MG TAB TAKE ONE TABLET BY MOUTH ONCE ACTIVE (S) DAILY FOR BLOOD PRESSURE/HEART, DO NOT TAKE WITH GRAPEFRUIT JUICE 3) ASPIRIN 81MG EC TAB TAKE ONE TABLET BY MOUTH ONCE DAILY TO ACTIVE PREVENT STROKE/HEART ATTACK Indication: FOR BLOOD CLOT PREVENTION FOLLOWING PCI 4) ATORVASTATIN CALCIUM 80MG TAB TAKE ONE TABLET BY MOUTH ONCE ACTIVE (S) DAILY FOR CHOLESTEROL 5) BRIMONIDINE 0.2%/BRINZOLAMID 1% OPH SUSP INSTILL 1 DROP INTO ACTIVE EACH EYE TWICE DAILY 6) CARVEDILOL 3.125MG TAB TAKE ONE TABLET BY MOUTH TWICE DAILY ACTIVE Indication: FOR HIGH BLOOD PRESSURE 7) CHOLECALCIF 25MCG (D3-1,000UNIT) TAB TAKE ONE TABLET BY ACTIVE MOUTH ONCE DAILY FOR VITAMIN SUPPLEMENTATION 8) DOCUSATE NA 100MG CAP TAKE ONE CAPSULE BY MOUTH TWICE DAILY ACTIVE NEEDED TO SOFTEN STOOL Indication: FOR CONSTIPATION 9) EPLERENONE 25MG TAB TAKE ONE TABLET BY MOUTH ONCE DAILY ACTIVE (S) Indication: FOR HIGH BLOOD PRESSURE 10) KETOCONAZOLE 2% SHAMPOO SHAMPOO SMALL AMOUNT TOPICALLY ONCE ACTIVE DAILY Indication: FOR FUNGAL INFECTION OF THE SKIN 11) LATANOPROST 0.005% OPH SOLN INSTILL 1 DROP INTO EACH EYE AT ACTIVE BEDTIME 12) LOSARTAN 100MG TAB TAKE ONE TABLET BY MOUTH ONCE DAILY FOR ACTIVE (S) BLOOD PRESSURE/HEART Indication: FOR HIGH BLOOD PRESSURE 13) MULTIVIT/OPHTH AREDS2/LUTE/ZEAX CAP/TAB TAKE 1 CAPSULE BY ACTIVE (S) MOUTH TWICE DAILY IN THE MORNING AND EVENING, WITH FOOD 14) PRIMIDONE 50MG TAB TAKE ONE TABLET BY MOUTH THREE TIMES A ACTIVE (S) DAY 15) TORSEMIDE 20MG TAB TAKE ONE TABLET BY MOUTH ONCE DAILY ACTIVE Inactive Outpatient Medications Status 1) HYDROPHILIC (EQV AQUAPHOR) TOP OINT APPLY LIBERAL AMOUNT TOPICALLY ONCE DAILY NEEDED Indication: FOR SKIN PROTECTION Active Non-VA Medications Status 1) Non-VA OXYGEN MISCELLANEOUS 2 LITERS VIA NC AT NIGHT ACTIVE DIRECTED NEEDED 17 Total Medications Active problems - Computerized Problem List is the source for the followin. Dependence on nocturnal oxygen therapy 2. Under care of multiple providers 3. Tremor 4. Narrow angle glaucoma 5. Diabetes mellitus 6. Ex-smoker 7. Chronic ischemic heart disease (SNOMED CT 871700218) 8. Coronary artery disease 9. Exudative age-related macular degeneration (SNOMED CT 117999628) 10. Gastroesophageal reflux disease without esophagitis 11. Hearing loss of right ear caused by noise (SNOMED CT 9456708610225672) 12. Personal History of Colonic Polyps 13. Obesity 14. Essential hypertension (SNOMED CT 67986680) 15. Hyperlipidemia (SNOMED CT 45078121) 16. Osteoarthritis (SNOMED CT 987174210) 17. Chronic obstructive lung disease (SNOMED CT 64688349) 18. Prostate cancer (SNOMED CT 303942098) 19. Legal blindness (SNOMED CT 51959749) 20. H/O: tuberculosis 21. Asbestosis (SNOMED CT 31025673) Review of Systems: CONSTITUTIONAL: No recent weight change, no fever, no loss of appetite HEENT: hearing ok ( )Tinnitus +legally blind no difficulty swallowing CARDIOVASCULAR: No cough, SOB, no chest pain, no palpitations, YEH GASTROINTESTINAL: No abdominal pain, no nausea, no vomiting, bowels ok GENITOURINARY: +frequency, intermittent incontinence DERMATOLOGICAL: No new or changing skin lesions, no rash MUSCULOSKELETAL: No new joint pain, no joint swelling, no muscle pain, no muscle weakness ENDOCRINE: no fatigue PSYCHIATRIC: No anxiety, no trouble sleeping, no depression NEUROLOGIC: No headache, no numbness, no tingling, no weakness, no memory loss, no dizziness VITAL SIGNS: B/P: 138/78 (08/31/2024 13:52) Pulse: 67 (08/31/2024 13:52) Temperature: 98 F [36.7 C] (08/31/2024 13:52) Weight: 210 lb [95.25 kg] (08/24/2024 14:00) Height: 70 in [177.8 cm] (08/23/2019 10:24) BMI: BMI: 30.2 Pain: 0 (08/31/2024 13:52) (0-10 scale) Pulse Ox:Measurement DT POx (L/MIN)(%) 08/31/2024 13:52 94 PE: GENERAL: Pt is appropriately dressed/groomed, good eye contact. NAD HEENT: normalcephalic, thyroid nonpalpable. conj clear, Oropharynx clear, tongue moist, ( )dentures in neck supple, no JVD, no carotid bruits SKIN: warm & dry, no rash CV: RRR, nl s1,s2 no M/G/R LUNGS: Clear to auscultation bilaterally, no use of accessory muscles ABD: obese, NBS, soft, NT, ND, +soft, reproducible umbilical hernia EXTREMITIES: QUAN, warm, no edema, +PP NEURO/PSYCH: A+Ox4, good historian, mood/affect appropriate, thought/speech patterns appropriately conversant without delusional content, CNII-XII grossly intact, /3 word recall Get up and go normal ( )with ( )without assistive device. ( )cane ( ) walker Future Clinic Visits 10/21/2024 11:30 CWM/SO/PODIATRY/KELLEN 04/11/2025 13:30 NHM/OPTOMETRY/JUSTICE * A/P Prostate cancer, recurrence > PET scan 03/2024 for elevated PSA (5.8 to 26), CA found localized to prostate > watchful waiting, Urology f/u with Dr. Herr 10/16/23 HTN with HTN heart disease/HF, HLD, CAD > followed at [facility]. Carvedilol stopped due to bradycardia. Saw [facility] 06/2024, will f/u annually Macular degeneration, legally blind, glaucoma > cont to f/u with community optho COPD, asbestosis, h/o TB, oxygen PRN > on trelegy, heavy out of pocket cost. Willing to trial Breztri via VA. Pulmonary recommends CT scan, appt pending Tremor > table with primidone BID GERD >stable on PPI, check Mg Falls > many trip hazrds in the home, counseling Dm2 > diet controlled. Hgba1c 5.7 in December 2023. Due for urine micro Macular degeneration, glaucoma > chronic, stable. 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 Labs to include: ( )non fasting labs ordered prior to f/u ( )fasting labs ordered prior to f/u ( )no labs needed [place] has complex care needs and will benefit from ongoing interdisciplinary HBPC management. Treatment plan included shared decision making and is confirmed with the /caregiver. All questions answered, education provided regarding medication, including details regarding any changes. All questions answered. Medication Reconciliation: Outpatient: Has the patient been taking medications as documented in the EMLR? No: Discrepencies were identified. See below. Essential Medication List for Review used to complete this medication reconciliation. INCLUDED IN THIS LIST: Alphabetical list of active outpatient prescriptions dispensed from this [facility] (local) and dispensed from another [place] or DoD facility (remote) as well as inpatient orders (local, pending and active), local clinic medications, locally documented non-VA medications, and local prescriptions that have or been discontinued in the past 90 days. - Discrepancies were identified, addressed, and discussed with the patient/caregiver at this encounter. Discrepancies: Timolol gtts fell off list. COnfirmed with Dr. Garay, he should be on it - All changes in medications, including all non-VA/Herbal/OTC medications were entered into CPRS. - If there were any medications the patient should no longer take, they were discontinued. - The patient/caregiver was instructed to update this list, discard old lists, and take this list to the next appointment, whether with a VA or non-VA provider. Tobacco Use Screening: The patient is a former cigarette smoker. The patient has never used other types of tobacco. Home Telehealth (CCHT) Referral: Patient not a candidate for CCHT Program at this time. Reason: conditions well managed Sexual Orientation: The patient thinks of their sexual orientation as: Straight or Heterosexual /es/ GILES FUENTES HB NURSE PRACTITIONER Signed: 09/02/2024 09:12 GILES FUENTES [place] [facility] Aug 31, 2024 01:52 PM [facility] ATTENDING NOTE: LOCAL TITLE: HBPC PROVIDER ASSESSMENT STANDARD TITLE: [facility] ATTENDING NOTE DATE OF NOTE: AUG 31, 2024@13:52 ENTRY DATE: AUG 31, 2024@13:52:56 AUTHOR: GILES FUENTES EXP COSIGNER: URGENCY: STATUS: COMPLETED [facility] PROVIDER ASSESSMENT Has ADDENDA [place] was seen for: [ ] Initial Review x] Annual Review [ ] Interim Visit Identified by name, , address and facial recognition: Y VVC Ready: Yes [ ] No [x ] HPI:89 yo M seen for annual HBPC visit. He has no new complaints. PMH as listed below. He is requesting to trial Bredarientri as the cost of Trelegy is a burden. HISTORY: PERIOD OF SERVICE - [facility] FROM Oct TO Apr COMBAT SERVICE INDICATED: No SH: SERVICE CONNECTED % - 10 ASBESTOSIS 0% SC IMPAIRED HEARING 0% SC TINNITUS 10% SC MARITAL STATUS - [facility] Providers blind rehab podiatry Non- [facility] Providers [facility] Hospitalizations- none in >12 mos 05/2024 circucision Social former smoker rare etoh Family History- unknown HM: ( )copy of HCP given (x )Has UTD HCP ( )copy of MOLST given( x)Has UTD MOLST- completed, full code ( )advance directive UTD Recent Falls Y( ) N(x ) Recent Infections Y( ) N(x ) Recent Hospitalizations Y ( ) N(x ) ADLS: Needs assistance with ( )ambulation ( ) dressing ( )toileting ( )transferring ( ) bathing ( ) feeding ( ) transfer ( ) incontinence care Oxygen Safety addressed: yes. Partner noted to have ashtray at kitchen table. Counseled at length regarding risk. She reports only smoking outside. Cognition: No concerns. Counseled on importance of physical activity, healthy diet, socialization and mentally engaging activities to optimize cognitive functioning. Allergies: SULFA DRUGS The following VA and Non-VA meds were reconciled with patient: Active and Recently Outpatient Medications (excluding Supplies): Active Outpatient Medications Status 1) ACETAMINOPHEN 500MG TAB TAKE TWO TABLETS BY MOUTH THREE ACTIVE TIMES DAILY NEEDED Indication: FOR PAIN 2) AMLODIPINE BESYLATE 10MG TAB TAKE ONE TABLET BY MOUTH ONCE ACTIVE (S) DAILY FOR BLOOD PRESSURE/HEART, DO NOT TAKE WITH GRAPEFRUIT JUICE 3) ASPIRIN 81MG EC TAB TAKE ONE TABLET BY MOUTH ONCE DAILY TO ACTIVE PREVENT STROKE/HEART ATTACK Indication: FOR BLOOD CLOT PREVENTION FOLLOWING PCI 4) ATORVASTATIN CALCIUM 80MG TAB TAKE ONE TABLET BY MOUTH ONCE ACTIVE (S) DAILY FOR CHOLESTEROL 5) BRIMONIDINE 0.2%/BRINZOLAMID 1% OPH SUSP INSTILL 1 DROP INTO ACTIVE EACH EYE TWICE DAILY 6) CARVEDILOL 3.125MG TAB TAKE ONE TABLET BY MOUTH TWICE DAILY ACTIVE Indication: FOR HIGH BLOOD PRESSURE 7) CHOLECALCIF 25MCG (D3-1,000UNIT) TAB TAKE ONE TABLET BY ACTIVE MOUTH ONCE DAILY FOR VITAMIN SUPPLEMENTATION 8) DOCUSATE NA 100MG CAP TAKE ONE CAPSULE BY MOUTH TWICE DAILY ACTIVE NEEDED TO SOFTEN STOOL Indication: FOR CONSTIPATION 9) EPLERENONE 25MG TAB TAKE ONE TABLET BY MOUTH ONCE DAILY ACTIVE (S) Indication: FOR HIGH BLOOD PRESSURE 10) KETOCONAZOLE 2% SHAMPOO SHAMPOO SMALL AMOUNT TOPICALLY ONCE ACTIVE DAILY Indication: FOR FUNGAL INFECTION OF THE SKIN 11) LATANOPROST 0.005% OPH SOLN INSTILL 1 DROP INTO EACH EYE AT ACTIVE BEDTIME 12) LOSARTAN 100MG TAB TAKE ONE TABLET BY MOUTH ONCE DAILY FOR ACTIVE (S) BLOOD PRESSURE/HEART Indication: FOR HIGH BLOOD PRESSURE 13) MULTIVIT/OPHTH AREDS2/LUTE/ZEAX CAP/TAB TAKE 1 CAPSULE BY ACTIVE (S) MOUTH TWICE DAILY IN THE MORNING AND EVENING, WITH FOOD 14) PRIMIDONE 50MG TAB TAKE ONE TABLET BY MOUTH THREE TIMES A ACTIVE (S) DAY 15) TORSEMIDE 20MG TAB TAKE ONE TABLET BY MOUTH ONCE DAILY ACTIVE Inactive Outpatient Medications Status 1) HYDROPHILIC (EQV AQUAPHOR) TOP OINT APPLY LIBERAL AMOUNT TOPICALLY ONCE DAILY NEEDED Indication: FOR SKIN PROTECTION Active Non-VA Medications Status 1) Non-VA OXYGEN MISCELLANEOUS 2 LITERS VIA NC AT NIGHT ACTIVE DIRECTED NEEDED 17 Total Medications Active problems - Computerized Problem List is the source for the followin. Dependence on nocturnal oxygen therapy 2. Under care of multiple providers 3. Tremor 4. Narrow angle glaucoma 5. Diabetes mellitus 6. Ex-smoker 7. Chronic ischemic heart disease (SNOMED CT 739962337) 8. Coronary artery disease 9. Exudative age-related macular degeneration (SNOMED CT 805066262) 10. Gastroesophageal reflux disease without esophagitis 11. Hearing loss of right ear caused by noise (SNOMED CT 4646364480409050) 12. Personal History of Colonic Polyps 13. Obesity 14. Essential hypertension (SNOMED CT 20517264) 15. Hyperlipidemia (SNOMED CT 61726935) 16. Osteoarthritis (SNOMED CT 403017967) 17. Chronic obstructive lung disease (SNOMED CT 83510205) 18. Prostate cancer (SNOMED CT 565822980) 19. Legal blindness (SNOMED CT 90835435) 20. H/O: tuberculosis 21. Asbestosis (SNOMED CT 33421974) Review of Systems: CONSTITUTIONAL: No recent weight change, no fever, no loss of appetite HEENT: hearing ok ( )Tinnitus +legally blind no difficulty swallowing CARDIOVASCULAR: No cough, SOB, no chest pain, no palpitations, YEH GASTROINTESTINAL: No abdominal pain, no nausea, no vomiting, bowels ok GENITOURINARY: +frequency, intermittent incontinence DERMATOLOGICAL: No new or changing skin lesions, no rash MUSCULOSKELETAL: No new joint pain, no joint swelling, no muscle pain, no muscle weakness ENDOCRINE: no fatigue PSYCHIATRIC: No anxiety, no trouble sleeping, no depression NEUROLOGIC: No headache, no numbness, no tingling, no weakness, no memory loss, no dizziness VITAL SIGNS: B/P: 138/78 (08/31/2024 13:52) Pulse: 67 (08/31/2024 13:52) Temperature: 98 F [36.7 C] (08/31/2024 13:52) Weight: 210 lb [95.25 kg] (08/24/2024 14:00) Height: 70 in [177.8 cm] (08/23/2019 10:24) BMI: BMI: 30.2 Pain: 0 (08/31/2024 13:52) (0-10 scale) Pulse Ox:Measurement DT POx (L/MIN)(%) 08/31/2024 13:52 94 PE: GENERAL: Pt is appropriately dressed/groomed, good eye contact. NAD HEENT: normalcephalic, thyroid nonpalpable. conj clear, Oropharynx clear, tongue moist, ( )dentures in neck supple, no JVD, no carotid bruits SKIN: warm & dry, no rash CV: RRR, nl s1,s2 no M/G/R LUNGS: Clear to auscultation bilaterally, no use of accessory muscles ABD: obese, NBS, soft, NT, ND, +soft, reproducible umbilical hernia EXTREMITIES: QUAN, warm, no edema, +PP NEURO/PSYCH: A+Ox4, good historian, mood/affect appropriate, thought/speech patterns appropriately conversant without delusional content, CNII-XII grossly intact, /3 word recall Get up and go normal ( )with ( )without assistive device. ( )cane ( ) walker Future Clinic Visits 10/21/2024 11:30 CWM/SO/PODIATRY/KELLEN 04/11/2025 13:30 NHM/OPTOMETRY/JUSTICE * A/P Prostate cancer, recurrence > PET scan 03/2024 for elevated PSA (5.8 to 26), CA found localized to prostate > watchful waiting, Urology f/u with Dr. Herr 10/16/23 HTN with HTN heart disease/HF, HLD, CAD > followed at [facility]. Carvedilol stopped due to bradycardia. Saw [facility] 06/2024, will f/u annually Macular degeneration, legally blind, glaucoma > cont to f/u with [facility] optho COPD, asbestosis, h/o TB, oxygen PRN > on trelegy, heavy out of pocket cost. Willing to trial Breztri via [facility] Pulmonary recommends CT scan, appt pending Tremor > table with primidone BID GERD >stable on PPI, check Mg Falls > many trip hazrds in the home, counseling Dm2 > diet controlled. Hgba1c 5.7 in December 2023. Due for urine micro Macular degeneration, glaucoma > chronic, stable. 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 Labs to include: ( )non fasting labs ordered prior to f/u ( )fasting labs ordered prior to f/u ( )no labs needed has complex care needs and will benefit from ongoing interdisciplinary HBPC management. Treatment plan included shared decision making and is confirmed with the /caregiver. All questions answered, education provided regarding medication, including details regarding any changes. All questions answered. Medication Reconciliation: Outpatient: Has the patient been taking medications as documented in the EMLR? No: Discrepencies were identified. See below. Essential Medication List for Review used to complete this medication reconciliation. INCLUDED IN THIS LIST: Alphabetical list of active outpatient prescriptions dispensed from this [facility] (local) and dispensed from another [place] or [facility] facility (remote) as well as inpatient orders (local, pending and active), local clinic medications, locally documented non-VA medications, and local prescriptions that have or been discontinued in the past 90 days. - Discrepancies were identified, addressed, and discussed with the patient/caregiver at this encounter. Discrepancies: Timolol gtts fell off list. COnfirmed with Dr. Garay, he should be on it - All changes in medications, including all non-VA/Herbal/OTC medications were entered into CPRS. - If there were any medications the patient should no longer take, they were discontinued. - The patient/caregiver was instructed to update this list, discard old lists, and take this list to the next appointment, whether with a VA or non-VA provider. Tobacco Use Screening: The patient is a former cigarette smoker. The patient has never used other types of tobacco. Home Telehealth (CCHT) Referral: Patient not a candidate for CCHT Program at this time. Reason: conditions well managed Sexual Orientation: The patient thinks of their sexual orientation as: Straight or Heterosexual /esthela/ GILES FU[facility] NURSE PRACTITIONER Signed: 09/02/2024 09:12 09/02/2024 ADDENDUM STATUS: COMPLETED Mr. Lemus is coming to [facility] in October for podiatry. I requested he get labs then. /esthela/ [facility]IL[facility] NURSE PRACTITIONER Signed: 09/02/2024 09:13 Receipt Acknowledged By: * AWAITING SIGNATURE * ADALGISA PINA JESSICA FRANCES [place] [facility]TRL [facility]
--- OUTSIDE RECORDS SUMMARY | 2024-11-16 10:47 | XMS_ITS | Encounter Summary ---
Author Organization [facility] Address [address] [place] [address] Care Team Providers Care Painter Maintenance Name Role Phone Bakari Akhtar MD Primary Care Provider [phone] Encounter Details Date Type Department Care Team (Latest Contact Info) Description 09/22/2024 Lab Requisition [facility] [address] [place] [id number] Troy Butcher PA [address] [place], [place] [id number] Chronic obstructive pulmonary disease, unspecified (CMS/HCC); Type 2 diabetes mellitus without complications (CMS/HCC) Social History Tobacco Use Types Packs/Day Years [...] on file Sexual Orientation Not on file documented as of this encounter Plan of Treatment Not on file documented as of this encounter Procedures Procedure Name Priority Date/Time Associated Diagnosis Comments PROSTATE SPECIFIC ANTIGEN SCREEN Routine 09/22/2024 12:00 AM EST Chronic obstructive pulmonary disease, unspecified (CMS/HCC) Type 2 diabetes mellitus without complications (CMS/HCC) SST - GOLD Routine 09/22/2024 12:00 AM [...] Type 2 diabetes mellitus without complications (CMS/HCC) documented in this encounter Results * SST tube (09/22/2024 12:00 AM EST) [facility] Extra Tube Hold for add-ons. 09/22/2024 8:01 PM EST [facility] Comment:Auto resulted. Blood Venous blood specimen / Unknown 09/22/2024 09/22/2024 6:24 PM EST us Troy GAR LAB BLOOD ORDERABLES Final Res ult [facility] [address] [place] [address], [place] [phone] * (ABNORMAL) CBC auto differential (09/22/2024 12:00 AM EST) [facility] WBC 8.9 4.8 - 10.8 K/mcL LAB HEMETOLOGY METHOD 09/22/2024 7:40 PM [facility] RBC 4.70 4.50 - 5.50 M/[facility] LAB HEMETOLOGY METHOD 09/22/2024 7:40 PM [facility] Hemoglobin 14.7 13.5 - 17.5 g/dL LAB HEMETOLOGY METHOD 09/22/2024 7:40 PM [facility] Hematocrit 45.8 42.0 - 54.0 % LAB HEMETOLOGY METHOD 09/22/2024 7:40 PM [facility] MCV 97.9 79.0 - 98.0 FL LAB HEMETOLOGY METHOD 09/22/2024 7:40 PM [facility] MCH 31.4 27.0 - 32.0 pcg LAB HEMETOLOGY METHOD 09/22/2024 7:40 PM [facility] MCHC 32.1 32.0 - 37.0 g/dL LAB HEMETOLOGY METHOD 09/22/2024 7:40 PM [facility] RDW 13.3 11.0 - 15.0 % LAB HEMETOLOGY METHOD 09/22/2024 7:40 PM [facility] Platelets 151 130 - 400 K/mcL LAB HEMETOLOGY METHOD 09/22/2024 7:40 PM [facility] MPV 12.4(H) 7.0 - 11.0 FL LAB HEMETOLOGY METHOD 09/22/2024 7:40 PM [facility] NRBC 0.0 <1.0 % LAB HEMETOLOGY METHOD 09/22/2024 7:40 PM [facility] NRBC Absolute 0.00 <0.10 K/mcL LAB HEMETOLOGY METHOD 09/22/2024 7:40 PM [facility] Neutrophils Relative 65.2 % LAB HEMETOLOGY METHOD 09/22/2024 7:40 PM [facility] Lymphocytes Relative 23.1 % LAB HEMETOLOGY METHOD 09/22/2024 7:40 PM [facility] Monocytes Relative 9.5 % LAB HEMETOLOGY METHOD 09/22/2024 7:40 PM [facility] Eosinophils Relative 1.4 % LAB HEMETOLOGY METHOD 09/22/2024 7:40 PM [facility] Basophils Relative 0.6 % LAB HEMETOLOGY METHOD 09/22/2024 7:40 PM [facility] Immature Granulocytes Relative 0.2 % LAB HEMETOLOGY METHOD 09/22/2024 7:40 PM [facility] Neutrophils Absolute 5.78 1.50 - 7.00 K/mcL LAB HEMETOLOGY METHOD 09/22/2024 7:40 PM [facility] Lymphocytes Absolute 2.05 1.00 - 5.00 K/mcL LAB HEMETOLOGY METHOD 09/22/2024 7:40 PM [facility] Monocytes Absolute 0.84 0.20 - 1.00 K/mcL LAB HEMETOLOGY METHOD 09/22/2024 7:40 PM [facility] Eosinophils Absolute 0.12 0.00 - 0.50 K/mcL LAB HEMETOLOGY METHOD 09/22/2024 7:40 PM EST [facility] Basophils Absolute 0.05 0.00 - 0.20 K/[facility] HEMETOLOGY METHOD 09/22/2024 7:40 PM EST [facility] Immature Granulocytes Absolute 0.02 0.00 - 0.03 K/[facility] HEMETOLOGY METHOD 09/22/2024 7:40 PM EST [facility] Blood Venous blood specimen / Unknown 09/22/2024 09/22/2024 6:24 PM EST Troy GAR LAB BLOOD ORDERABLES Final Res ult Performing Organization Address [facility] Co de Phone Number [facility] [address] [place] [address], [place] [phone] * (ABNORMAL) Prostate specific antigen screen (09/22/2024 12:00 AM EST) PSA 27.54(H) 0.00 - 4.00 ng/mL LAB CHEMISTRY METHOD 09/22/2024 8:21 PM EST [facility] Blood Venous blood specimen / Unknown 09/22/2024 09/22/2024 6:24 PM EST Narrative [facility] - 09/22/2024 8:21 PM EST The Siemens Advia Centaur Chemiluminescent Immunoassay is used. Results obtained with different assay methods or kits cannot be used interchangeably. Results cannot be interpreted as absolute evidence of the presence or absence of malignant disease. us Troy GAR LAB BLOOD ORDERABLES Final Res ult Performing Organization Address City/[facility]/ZIP Co de Phone Number [facility] [address] [place] [address], [place] [phone] * Magnesium (09/22/2024 12:00 AM EST) Magnesium 2.1 1.9 - 2.6 mg/dL LAB CHEMISTRY METHOD 09/22/2024 8:12 PM EST [facility] Blood Venous blood specimen / Unknown 09/22/2024 09/22/2024 6:24 PM EST us Troy GAR LAB BLOOD ORDERABLES Final Res ult [facility] [address] [place] [address], [place] [phone] * B-type natriuretic peptide (09/22/2024 12:00 AM EST) BNP 17 <=100 pcg/mL LAB CHEMISTRY METHOD 09/22/2024 8:32 PM EST [facility] Blood Venous blood specimen / Unknown 09/22/2024 09/22/2024 6:24 PM EST us Troy GAR LAB BLOOD ORDERABLES Final Res ult Performing Organization Address City/[facility]/ZIP Co de Phone Number [facility] [address] [place] [address], [place] [phone] * Vitamin B12 (09/22/2024 12:00 AM EST) Pathologist [facility] Vitamin B-12 560 250 - 900 pcg/mL LAB CHEMISTRY METHOD 09/22/2024 8:34 PM EST [facility] Blood Venous blood specimen / Unknown 09/22/2024 09/22/2024 6:24 PM EST us Troy GAR LAB BLOOD ORDERABLES Final Res ult Performing Organization Address City/[facility]/ZIP Co de Phone Number [facility] [address] [place] [address], [place] [phone] * LDL cholesterol, direct (09/22/2024 12:00 AM EST) LDL Direct 59 <=100 mg/dL LAB CHEMISTRY METHOD 09/22/2024 8:12 PM EST [facility] Blood Venous blood specimen / Unknown 09/22/2024 09/22/2024 6:24 PM EST us Troy GAR LAB BLOOD ORDERABLES Final Res ult [facility] [address] [place] [address], [place] [phone] * Vitamin D 25 hydroxy (09/22/2024 12:00 AM EST) Pathologist [facility] Vit D, 25-Hydroxy 30.1 30.0 - 80.0 ng/mL LAB CHEMISTRY METHOD 09/22/2024 8:21 PM EST [facility] Blood Venous blood specimen / Unknown 09/22/2024 09/22/2024 6:24 PM EST us Troy GAR LAB BLOOD ORDERABLES Final Res ult Performing Organization Address City/[facility]/ZIP Co de Phone Number [facility] [address] [place] [address], [place] [phone] * Lipid panel with reflex to direct LDL (09/22/2024 12:00 AM EST) Pathologist [facility] Cholesterol 122 0 - 200 mg/dL LAB CHEMISTRY METHOD 09/22/2024 8:34 PM EST [facility] Triglycerides 90 0 - 150 mg/dL LAB CHEMISTRY METHOD 09/22/2024 8:34 PM [facility] HDL 56 >=40 mg/dL LAB CHEMISTRY METHOD 09/22/2024 8:34 PM [facility] LDL Calculated 48 0 - 100 mg/dL LAB CHEMISTRY METHOD 09/22/2024 8:34 PM [facility] VLDL Cholesterol Jaya 18 mg/dL LAB CHEMISTRY METHOD 09/22/2024 8:34 PM EST [facility] Non HDL Chol. (LDL+VLDL) 66 <145 mg/dL LAB CHEMISTRY METHOD 09/22/2024 8:34 PM [facility] Chol/HDL Ratio 2.2 0.0 - 4.4 LAB CHEMISTRY METHOD 09/22/2024 8:34 PM [facility] Blood Venous blood specimen / Unknown 09/22/2024 09/22/2024 6:24 PM EST us Troy GAR LAB BLOOD ORDERABLES Final Res ult [facility] [address] [place] [address], [place] [phone] * (ABNORMAL) Comprehensive metabolic panel (09/22/2024 12:00 AM EST) Sodium 141 133 - 145 mmol/L LAB CHEMISTRY METHOD 09/22/2024 8:12 PM [facility] Potassium 4.3 3.5 - 5.5 mmol/L LAB CHEMISTRY METHOD 09/22/2024 8:12 PM [facility] Chloride 111(H) 96 - 110 mmol/L LAB CHEMISTRY METHOD 09/22/2024 8:12 PM [facility] CO2 26 21 - 32 mmol/L LAB CHEMISTRY METHOD 09/22/2024 8:12 PM [facility] Anion Gap 4 3 - 11 LAB CHEMISTRY METHOD 09/22/2024 8:12 PM [facility] Glucose 101(H) 70 - 100 mg/dL LAB CHEMISTRY METHOD 09/22/2024 8:12 PM [facility] BUN 20 5 - 25 mg/dL LAB CHEMISTRY METHOD 09/22/2024 8:12 PM [facility] Creatinine 0.93 0.70 - 1.30 mg/dL LAB CHEMISTRY METHOD 09/22/2024 8:12 PM [facility] eGFR 78 >=60 mL/min/1. 73m2 LAB CHEMISTRY METHOD 09/22/2024 8:12 PM [facility] Comment:Calculation based on the??Chronic Kidney Disease Epidemiology Collaboration (CKD-EPI) equation refit??without adjustment for race. BUN/Creatinine Ratio 21.5 LAB CHEMISTRY METHOD 09/22/2024 8:12 PM [facility] Calcium 9.2 8.5 - 10.5 mg/dL LAB CHEMISTRY METHOD 09/22/2024 8:12 PM [facility] AST (SGOT) 22 10 - 42 unit/L LAB CHEMISTRY METHOD 09/22/2024 8:12 PM [facility] ALT (SGPT) 36 10 - 60 unit/L LAB CHEMISTRY METHOD 09/22/2024 8:12 PM [facility] Alkaline Phosphatase 160(H) 42 - 121 unit/L LAB CHEMISTRY METHOD 09/22/2024 8:12 PM [facility] Total Protein 7.1 6.0 - 8.0 g/dL LAB CHEMISTRY METHOD 09/22/2024 8:12 PM [facility] Albumin 3.7 3.2 - 5.0 g/dL LAB CHEMISTRY METHOD 09/22/2024 8:12 PM [facility] Total Bilirubin 0.7 0.0 - 1.4 mg/dL LAB CHEMISTRY METHOD 09/22/2024 8:12 PM [facility] Blood Venous blood specimen / Unknown 09/22/2024 09/22/2024 6:24 PM EST us Troy GAR LAB BLOOD ORDERABLES Final Res ult [facility] [address], [place] [address] [phone] documented in this encounter Visit Diagnoses Diagnosis Chronic obstructive pulmonary disease, unspecified (CMS/HCC) Type 2 diabetes mellitus without complications (CMS/HCC) documented in this encounter Care Teams Painter Maintenance Relationship Specialty Start Date End Date Bakari Akhtar MD [address] PCP - General Internal Medicine 03/11/13 documented as of this encounter
--- OUTSIDE RECORDS SUMMARY | 2024-11-16 10:47 | XMS_ITS | Encounter Summary ---
Author Name [facility] (MD[facility] Organization [facility] Address [address] [place] [id number] Care Team Providers Care Tin Recovery Worker Name Role Phone GILES FUENTES Primary Care [...] CAREMARK PRESCRIPT ION GEHA Sep 14, 2014 [id number] FANY LEMUS ON PATIENT CAREMARK PRESCRIPT ION SUSI ATKINSON Sep 14, 2014 [id number] [phone] FANY LEMUS ON PATIENT CAREMARK PRESCRIPT ION Sep 14, 2014 [id number] [phone] ALLAN,MYR ON PATIENT GEHA (SECONDARY ) PREFERRED PROVIDER ORGANIZAT ION (PPO) HIGH OPTIO N MCR A&B Sep 14, 2005 [id number] ALLAN,MYR ON PATIENT GEHA (SECONDARY ) PREFERRED PROVIDER ORGANIZAT ION (PPO) GEHA CONNE CTION DENT Sep 14, 2005 [id number] [phone] ALLAN,MYR ON PATIENT GEHA FEHB PREFERRED PROVIDER ORGANIZAT ION (PPO) SUSI AL GOV Sep 14, 2005 [id number] [id number] ALLAN,MYR ON PATIENT GEHA FEHB PREFERRED PROVIDER ORGANIZAT ION (PPO) SUSI AL* Sep 14, 1989 [id number] ALTH [id number] ALLAN,MYR ON PATIENT GEHA-BEHAV [facility] GEHA HIGH OPTIO N Sep 14, 2021 [id number] ALLAN,MYR ON PATIENT MEDICARE (WNR) MEDICARE (M) PART A May 15, 2000 PART A [id number] ALLAN,MYR ON PATIENT MEDICARE (WNR) MEDICARE (M) PART B May 15, 2000 PART B [id number] ALLAN,MYR ON PATIENT MEDICARE (WNR) MEDICARE () PART A May 15, 2000 PART A [id number] ALLAN,MYR ON PATIENT MEDICARE (WNR) MEDICARE (M) PART B May 15, 2000 PART B [id number] ALLAN,MYR ON PATIENT MEDICARE (WNR) MEDICARE (M) PART A May 15, 2000 PART A [id number] [phone] ALLAN,MYR ON PATIENT MEDICARE (WNR) MEDICARE (M) PART B May 15, 2000 PART B [id number] ALLAN,MYR ON PATIENT MEDICARE (WNR) MEDICARE (M) PART A May 15, 2000 PART A [id number] FANY LEMUS ON PATIENT MEDICARE (WNR) MEDICARE (M) PART B May 15, 2000 PART B [id number] FANY LEMUS ON PATIENT Selected Encounter This section includes the information on record at MD for the Encounter. Date/Time Encounter Type Encounter Description Reason Pro vider Source Oct 21, 2024 01:18 PM Outpatient Encounter TELEPHONE [facility] Encounter Template Text not used by MD Plan of Treatment: Future Appointments (+ 6 months) and Future Tests (+/- 45 days) The Plan of Treatment section includes future care activities for the patient from all MD treatmentfacilities. This section includes future appointments and future orders which are active, pending or scheduled. Future Appointments This section includes appointments that were scheduled to occur 6 months from the date of the Encounter, up to a maximum of 20 appointments. The data comes from all MD treatment facilities. Appointment Date/Time Appointment Type Appointme nt Facility Name Feb 24, 2025 11:30 AM AM[facility]ULATORY [facility] MEDICINE [facility] Apr 13, 2025 02:30 PM [facility]ULATORY - MED[facility]INE [facility] Active, Pending, and Scheduled Orders This section includes a listing of several types of active, pending, and scheduled orders, including clinic medications orders, diagnostic test orders, procedure orders and consult orders; where the start date of the order is 45 days before the date of the Encounter or 45 days after the date of theEncounter. The data comes from all MD treatment facilities. Test Date/Time Test Type Test Details Facility Name Oct 17, 2024 08:00 AM Laboratory - Chemistry Order HEMOGLOBIN A1C PANEL BLOOD (LAV-BLOOD) [facility] Lab Results: +/- 30 days of the encounter This section includes the Chemistry and Hematology Lab Results on record with MD for the patient. Radiology Reports and Pathology Reports are provided separately, in subsequent sections. Lab Results This section contains the Chemistry/Hematology Results that were resulted 30 days before or 30 daysafter the date of the Encounter. Date/Time Source Result Type Result - Unit Interpretation Reference Range Comment Oct 21, 2024 11:05 AM [facility] VITAMIN D (25-OH) Specimen Type: SERUM No comment entered. Ordering Provider: GILES FUENTES Report Released Date/Time: Sep 02, 2024 08:56 AM Reporting Lab: [facility] [place] [facility] [address] [facility] [address] Performing Lab: [facility] [place] [facility] [address] [facility] [address] VITAMIN D (25-OH) 39 ng/mL 20-50 Oct 21, 2024 11:05 AM [facility] [place] [facility] PTH INTACT Specimen Type: SERUM No comment entered. Ordering Provider: GILES FUENTES Report Released Date/Time: Sep 02, 2024 08:56 AM Reporting Lab: [facility] [place] [facility] [address] [facility] [address] Performing Lab: [facility] [place] [facility] [address] [facility] [address] PTH INTACT 77.4 pg/mL H 8.7-77.1 Oct 21, 2024 11:05 AM [facility] [place] [facility] MICROALBUMIN CREATININE RATIO PANEL Specimen Type: URINE No comment entered. Ordering Provider: GILES FUENTES Report Released Date/Time: Sep 02, 2024 08:56 AM Reporting Lab: [facility] [place] [facility] [address] [facility] [address] Performing Lab: [facility] [place] [facility] [address] [facility] [address] MICROALBUMIN/C REATININE RATIO 11.9 mg/g 0-29.9 MICROALBUMIN,Q UANTITATIVE 2.4 mg/dL RR UNAVAIL CREATININE URINE 202.37 mg/dL Oct 21, 2024 11:05 AM [facility] LIVER FUNCTION Specimen Type: SERUM No comment entered. Ordering Provider: GILES FUENTES Report Released Date/Time: Sep 02, 2024 08:56 AM Reporting Lab: [facility] [place] [facility] [address] [facility] [address] Performing Lab: [facility] [place] [address] [address] PROTEIN,TOTAL 7.8 g/dL 6.0-8.3 ALBUMIN 3.9 g/dL 3.5-5.0 ALKALINE PHOSPHATASE 160 U/L H 40-150 AST 22 U/L 5-34 ALT 28 U/L BILIRUBIN, TOTAL 0.8 mg/dL 0.2-1.2 Oct 21, 2024 11:05 AM [facility] LIPID PANEL, NON FASTING Specimen Type: SERUM No comment entered. Ordering Provider: GILES FUENTES Report Released Date/Time: Sep 02, 2024 08:58 AM Reporting Lab: [facility] [address] [facility] [address] Performing Lab: [address] [address] CHOLESTEROL 139 mg/dL TRIGLYCERIDE 129 mg/dL 0-150 LDL calculated 69 mg/dL 0-129 CHOL/HDL 3.2 HDL CHOLESTEROL 44 mg/dL 40-60 Oct 21, 2024 11:05 AM [facility] BASIC METABOLIC PANEL (non-fasting) Specimen Type: SERUM No comment entered. Ordering Provider: GILES FUENTES Report Released Date/Time: Sep 02, 2024 08:56 AM Reporting Lab: [address] [address] Performing Lab: [address] [address] UREA NITROGEN 32 mg/dL H 7-25 GLUCOSE 122 mg/dL H 65-100 SODIUM 140 mmol/L 135-145 POTASSIUM 4.9 mmol/L 3.5-5.0 CHLORIDE 104 mmol/L 100-110 CO2 27 meq/L 20-30 CREATININE, Serum 1.06 mg/dL 0.50-1.40 eGFR(CKD-EPI 2020) 67 mL/min >60 Oct 21, 2024 11:05 AM [facility] CBC Specimen Type: BLOOD No comment entered. Ordering Provider: GILES FUENTES Report Released Date/Time: Sep 02, 2024 08:56 AM Reporting Lab: [address] [address] Performing Lab: [facility] [address] [address] WBC 8.46 10*3/uL 4.50-11.00 RBC 4.86 10*6/uL 4.23-5.66 HGB 14.9 g/dL 12.8-17 HCT 45.7 39.2-50.4 MCV 94.0 fL 82-99 MCHC 32.6 g/dL 30.8-35.1 PLT 180 10*3/uL 140-360 RDW-CV 12.9 12.0-16.0 MCH 30.7 pg 26.2-32.6 Oct 21, 2024 11:05 AM [facility] GAMMA-GTP Specimen Type: SERUM No comment entered. Ordering Provider: GILES FUENTES Report Released Date/Time: Oct 21, 2024 03:59 PM Reporting Lab: [address] [address] Performing Lab: [address] [address] GAMMA-GTP 116 U/L H 10-65 Oct 12, 2024 01:30 PM [facility] PSA Specimen Type: SERUM No comment entered. Ordering Provider: GILES FUENTES Report Released Date/Time: Oct 12, 2024 01:21 PM Reporting Lab: [address] [address] Performing Lab: [address] [address] PSA 36.05 ng/mL H 0.00-4.00 Social History: Smoking Status (Most current) and Tobacco Use (All prior to encounter date) This section includes the most current, and the historical, smoking and tobacco- related health factors from the MD facility where the Encounter took place. Current Smoking Status This section includes the most current smoking, or tobacco-related health factor, from the MD facility where the Encounter took place. Date/Time Current Smoking Status Comment Facil yolanda Aug 31, 2024 01:52 PM VA-TOBACCO USE FOR BERNICE CIGARETTES [facility] Tobacco Use History This section includes a history of the smoking, or tobacco-related health factors, that were collected on or before the date of the Encounter. The data comes from the MD facility where the Encounter took place. Date/Time Smoking Status/Tobacco Use Comment F acility Aug 31, 2024 01:52 PM VA-TOBACCO USE FOR BERNICE CIGARETTES [facility] [place] [facility] Sep 02, 2023 05:30 PM VA-TOBACCO FORMER USER [facility] [place] [facility] Sep 02, 2023 05:30 PM VA-TOBACCO QUIT 15 YRS OR MORE [facility] [place] [facility] Apr 24, 2022 01:00 PM VA-TOBACCO FORMER USER [facility] [place] [facility] Apr 24, 2022 01:00 PM VA-TOBACCO QUIT 15 YRS OR MORE [facility] [place] [facility] Dec 05, 2021 02:00 PM VA-TOBACCO USE DEC LINED TO ANSWER [facility] [place] [facility] Nov 24, 2021 04:05 PM VA-TOBACCO USE DEC LINED TO ANSWER [facility] [place] [facility] Sep 20, 2020 08:40 AM VA-TOBACCO NEVER USED [facility] Advance Directives: All historical and current Section Date Range: From patient's date of to the date document was created. This section includes ALL of a patient's completed or amended MD Advance and Rescinded Directives. The entries below indicate that a directive exists for the patient, but an actual copy is not included with this document. The data comes from all MD facilities. Date Advance Directives Provider Source Nov 11, 2016 ADVANCE DIRECTIVE ELROY CHÁVEZ [facility] [place] [facility] Jul 08, 2006 ADVANCE DIRECTIVE CHAPARRO DICK [facility] Encounter Notes: All associated encounter notes This section contains the clinical notes associated to the Encounter. Date/Time Encounter Note(s) Provider Source Oct 21, 2024 01:18 PM LETTERS: LOCAL TITLE: PATIENT LETTER (B) STANDARD TITLE: LETTERS DATE OF NOTE: OCT 21, 2024@13:18 ENTRY DATE: OCT 21, 2024@13:18:46 AUTHOR: GILES FUENTES EXP COSIGNER: URGENCY: STATUS: COMPLETED == [facility] [address] [place] [address] [phone] * == SREEDHAR LEMUS [address] [place], [place] [address] Date:OCT 21, 2024 Dear SREEDHAR LEMUS, We are pleased to inform you that your labs remain stable. Please continue to follow with your Urologist regarding the elevated PSA, these results were faxed to his office. LAB CHEMISTRY & HEMATOLOGY Collection DT Specimen Test Name Result Units Ref Range 10/21/2024 11:05 BLOOD WBC 8.46 K/cmm 4.50 - 11.00 RBC 4.86 M/cmm 4.23 - 5.66 HGB 14.9 g/dL 12.8 - 17 HCT 45.7 % 39.2 - 50.4 MCV 94.0 fl 82 - 99 MCH 30.7 pg 26.2 - 32.6 MCHC 32.6 g/dL 30.8 - 35.1 RDW-CV 12.9 % 12.0 - 16.0 PLT 180 K/cmm 140 - 360 10/21/2024 11:05 URINE mALB/Cr 11.9 mg/G 0 - 29.9 MicroAl 2.4 mg/dL Ref: RR UNAVAIL CREATININE URINE 202.37 mg/dL 10/21/2024 11:05 SERUM CREATININE, Serum 1.06 mg/dL 0.50 - 1.40 eGFR(CKD-EPI 2020 67 mL/min Ref: >=60 SODIUM 140 mmol/L 135 - 145 POTASSIUM 4.9 mmol/L 3.5 - 5.0 CHLORIDE 104 mmol/L 100 - 110 CO2 27 mEq/L 20 - 30 UREA NITROGEN 32 H mg/dL 7 - 25 GLUCOSE 122 H mg/dL 65 - 100 PROTEIN,TOTAL 7.8 g/dL 6.0 - 8.3 ALBUMIN 3.9 g/dL 3.5 - 5.0 ALK MARV 160 H U/L 40 - 150 AST 22 U/L 5 - 34 BILIRUBIN, TOTAL 0.8 mg/dL 0.2 - 1.2 CHOLESTEROL 139 mg/dL <7 - 199 TRIGLYCERIDE 129 mg/dL 0 - 150 LDL calculated 69 mg/dL 0 - 129 CHOL/HDL 3.2 ALT 28 U/L <6 - 55 HDL CHOLESTEROL 44 mg/dL 40 - 60 10/12/2024 13:30 SERUM PSA 36.05 H ng/mL 0.00 - 4.00 Lipid Profile Collection DT Specimen Test Name Result Units Ref Range 10/21/2024 11:05 SERUM CHOLESTEROL 139 mg/dL <7 - 199 10/21/2024 11:05 SERUM TRIGLYCERIDE 129 mg/dL 0 - 150 10/21/2024 11:05 SERUM HDL CHOLESTEROL 44 mg/dL 40 - 60 10/21/2024 11:05 SERUM LDL calculated 69 mg/dL 0 - 129 10/21/2024 11:05 SERUM CHOL/HDL 3.2 Please call [phone] if you have any questions or concerns. Sincerely, Giles Fuentes Nurse Practitioner [facility] [address] [place] [address] Upcoming Appointments: 02/24/2025 11:30 [facility] PODIATRY 1 04/13/2025 14:30 [facility] OPTOMETRY 2 PM APPOINTMENT ABBREVIATION LOVE ==== (SPOPC OR SO = [address]) (GOPC OR GO = [address]) (NHM or NO = [facility]) (VVC - Video Call) (Tel-X Telephone Visit) ( - Telehealth) G[facility]ES [facility]UENTES [facility]
--- OUTSIDE RECORDS SUMMARY | 2024-11-16 10:47 | XMS_ITS ---
Author Name Department of [facility] Affairs ([place]) Organization [facility] Address [address] [place] [address] Care Team Providers Care Senior Telecommunications Specialist Name Role Phone GILES FUENTES Primary [...] CAREMARK PRESCRIPT ION GEHA Sep 14, 2014 [id number] [phone] FANY LEMUS ON PATIENT CAREMARK PRESCRIPT ION SUSI ATKINSON Sep 14, 2014 [id number] [phone] FANY LEMUS ON PATIENT CAREMARK PRESCRIPT ION Sep 14, 2014 [id number] [phone] ALLAN,MYR ON PATIENT GEHA (SECONDARY ) PREFERRED PROVIDER ORGANIZAT ION (PPO) HIGH OPTIO N [facility] A&B Sep 14, 2005 [id number] ALLAN,MYR ON PATIENT GEHA (SECONDARY ) PREFERRED PROVIDER ORGANIZAT ION (PPO) GEHA CONNE CTION DENT Sep 14, 2005 [id number] ALLAN,MYR ON PATIENT GEHA FEHB PREFERRED PROVIDER ORGANIZAT ION (PPO) SUSI AL GOV Sep 14, 2005 [id number] ALTH [id number] ALLAN,MYR ON PATIENT GEHA FEHB PREFERRED PROVIDER ORGANIZAT ION (PPO) SUSI AL* Sep 14, 1989 [id number] ALTH [id number] ALLAN,MYR ON PATIENT GEHA-BEHAV [facility] GEHA HIGH OPTIO N Sep 14, 2021 [id number] ALLAN,MYR ON PATIENT MEDICARE (WNR) MEDICARE (M) PART B May 15, 2000 PART B [id number] ALLAN,MYR ON PATIENT MEDICARE (WNR) MEDICARE (M) PART A May 15, 2000 PART A [id number] ALLAN,MYR ON PATIENT MEDICARE (WNR) MEDICARE (M) PART B May 15, 2000 PART B [id number] ALLAN,MYR ON PATIENT MEDICARE (WNR) MEDICARE (M) PART A May 15, 2000 PART A [id number] ALLAN,MYR ON PATIENT MEDICARE (WNR) MEDICARE (M) PART A May 15, 2000 PART A [id number] [phone] ALLAN,MYR ON PATIENT MEDICARE (WNR) MEDICARE (M) PART B May 15, 2000 PART B [id number] ALLAN,MYR ON PATIENT MEDICARE (WNR) MEDICARE (M) PART A May 15, 2000 PART A [id number] FANY LEMUS ON PATIENT MEDICARE (WNR) MEDICARE (M) PART B May 15, 2000 PART B [id number] FANY LEMUS ON PATIENT Selected Encounter This section includes the information on record at [place] for the Encounter. Date/Time Encounter Type Encounter Description Reason Provider Source Oct 13, 2024 03:37 PM SELF CARE MNGMENT TRAINING [facility] Nursing (RN / LP) ICD-10-CM J44.89 Other specified chronic obstructive pulmonary disease [facility] Encounter Template Text not used by [place] Assessments - Encounter Diagnoses This section includes the primary and secondary diagnoses documented for the Encounter. Date/Time Primary/Secondary Diagnosis Diagnosis Name Provider Source Oct 13, 2024 08:11 PM PRIMARY Other specified chronic obstructive pulmonary disease [facility] Oct 13, 2024 08:11 PM SECONDARY Carcinoma in situ of prostate [facility] Oct 13, 2024 08:11 PM SECONDARY Legal blindness, as defined in [place] [facility] Plan of Treatment: Future Appointments (+ 6 months) and Future Tests (+/- 45 days) The Plan of Treatment section includes future care activities for the patient from all [place] [facility]. This section includes future appointments and future orders which are active, pending or scheduled. Future Appointments This section includes appointments that were scheduled to occur 6 months from the date of the Encounter, up to a maximum of 20 appointments. The data comes from all [facility]. Appointment Date/Time Appointment Type Appointme nt Facility Name Oct 21, 2024 11:30 AM [facility]BULATORY - [facility]ICINE [facility] Feb 24, 2025 11:30 AM [facility] Active, Pending, and Scheduled Orders This section includes a listing of several types of active, pending, and scheduled orders, including clinic medications orders, diagnostic test orders, procedure orders and consult orders; where the start date of the order is 45 days before the date of the Encounter or 45 days after the date of theEncounter. The data comes from all [place] treatment [facility]. Test Date/Time Test Type Test Details Facility Name Aug 30, 2024 12:00 AM Laboratory - Chemistry Order BASIC METABOLIC PANEL (non-fasting) BLOOD (SST[facility]SERUM) [facility] Aug 30, 2024 12:00 AM Laboratory - Chemistry Order BNP (Natriuretic Peptide Brain) BLOOD (LAV-PLASMA) [facility] Oct 17, 2024 08:00 AM Laboratory - Chemistry Order HEMOGLOBIN A1C PANEL BLOOD (LAV-BLOOD) [facility] Lab Results: +/- 30 days of the encounter This section includes the Chemistry and Hematology Lab Results on record with [place] for the patient. Radiology Reports and Pathology Reports are provided separately, in subsequent sections. Lab Results This section contains the Chemistry/Hematology Results that were resulted 30 days before or 30 daysafter the date of the Encounter. Date/Time Source Result Type Result - Unit Interpretation Reference Range Comment Oct 21, 2024 11:05 AM [facility] VITAMIN D (25-OH) Specimen Type: SERUM No comment entered. Ordering Provider: GILES FUENTES Report Released Date/Time: Sep 02, 2024 08:56 AM Reporting Lab: [address] [address] Performing Lab: [address] [address] VITAMIN D (25-OH) 39 ng/mL 20-50 Oct 21, 2024 11:05 AM [facility] PTH INTACT Specimen Type: SERUM No comment entered. Ordering Provider: GILES FUENTES Report Released Date/Time: Sep 02, 2024 08:56 AM Reporting Lab: [facility] [address] [facility] [address] Performing Lab: [address] [address] PTH INTACT 77.4 pg/mL H 8.7-77.1 Oct 21, 2024 11:05 AM [facility] MICROALBUMIN CREATININE RATIO PANEL Specimen Type: URINE No comment entered. Ordering Provider: GILES FUENTES Report Released Date/Time: Sep 02, 2024 08:56 AM Reporting Lab: [facility] [address] [facility] [address] Performing Lab: [facility] [address] [facility] [address] MICROALBUMIN/C REATININE RATIO 11.9 mg/g 0-29.9 MICROALBUMIN,Q UANTITATIVE 2.4 mg/dL RR UNAVAIL CREATININE URINE 202.37 mg/dL Oct 21, 2024 11:05 AM [facility] LIVER FUNCTION Specimen Type: SERUM No comment entered. Ordering Provider: GILES FUENTES Report Released Date/Time: Sep 02, 2024 08:56 AM Reporting Lab: [facility] [address] [facility] [address] Performing Lab: [address] [address] PROTEIN,TOTAL 7.8 g/dL 6.0-8.3 ALBUMIN 3.9 g/dL 3.5-5.0 ALKALINE PHOSPHATASE 160 U/L H 40-150 AST 22 U/L 5-34 ALT 28 U/L BILIRUBIN, TOTAL 0.8 mg/dL 0.2-1.2 Oct 21, 2024 11:05 AM [facility] LIPID PANEL, NON FASTING Specimen Type: SERUM No comment entered. Ordering Provider: GILES FUENTES Report Released Date/Time: Sep 02, 2024 08:58 AM Reporting Lab: [address] [address] Performing Lab: [address] [address] CHOLESTEROL 139 mg/dL TRIGLYCERIDE 129 mg/dL 0-150 LDL calculated 69 mg/dL 0-129 CHOL/HDL 3.2 HDL CHOLESTEROL 44 mg/dL 40-60 Oct 21, 2024 11:05 AM [facility] BASIC METABOLIC PANEL (non-fasting) Specimen Type: SERUM No comment entered. Ordering Provider: GILES FUENTES Report Released Date/Time: Sep 02, 2024 08:56 AM Reporting Lab: [facility] [address] [facility] [address] Performing Lab: [facility] [address] [facility] [address] UREA NITROGEN 32 mg/dL H 7-25 GLUCOSE 122 mg/dL H 65-100 SODIUM 140 mmol/L 135-145 POTASSIUM 4.9 mmol/L 3.5-5.0 CHLORIDE 104 mmol/L 100-110 CO2 27 meq/L 20-30 CREATININE, Serum 1.06 mg/dL 0.50-1.40 eGFR(CKD-EPI 2020) 67 mL/min >60 Oct 21, 2024 11:05 AM [facility] CBC Specimen Type: BLOOD No comment entered. Ordering Provider: GILES FUENTES Report Released Date/Time: Sep 02, 2024 08:56 AM Reporting Lab: [facility] [address] [facility] [address] Performing Lab: [facility] [address] [address] WBC 8.46 10*3/uL 4.50-11.00 RBC 4.86 10*6/uL 4.23-5.66 HGB 14.9 g/dL 12.8-17 HCT 45.7 39.2-50.4 MCV 94.0 fL 82-99 MCHC 32.6 g/dL 30.8-35.1 PLT 180 10*3/uL 140-360 RDW-CV 12.9 12.0-16.0 MCH 30.7 pg 26.2-32.6 Oct 21, 2024 11:05 AM [facility] GAMMA-GTP Specimen Type: SERUM No comment entered. Ordering Provider: GILES FUENTES Report Released Date/Time: Oct 21, 2024 03:59 PM Reporting Lab: [facility] [address] [address] Performing Lab: [facility] [address] [address] GAMMA-GTP 116 U/L H 10-65 Oct 12, 2024 01:30 PM [facility] PSA Specimen Type: SERUM No comment entered. Ordering Provider: GILES FUENTES Report Released Date/Time: Oct 12, 2024 01:21 PM Reporting Lab: [place] [facility] [address] [facility] [address] Performing Lab: [place] [facility] [address] [facility] [address] PSA 36.05 ng/mL H 0.00-4.00 Social History: [...] 01:52 PM VA-TOBACCO USE FOR BERNICE CIGARETTES [facility] Tobacco Use History This section includes a history of the smoking, or tobacco-related health factors, that were collected on or before the date of the Encounter. The data comes from the [place] facility where the Encounter took place. Date/Time Smoking Status/Tobacco Use Comment F acility Aug 31, 2024 01:52 PM VA-TOBACCO USE FOR BERNICE CIGARETTES [facility] [place] [facility] Sep 02, 2023 05:30 PM VA-TOBACCO FORMER USER [place] [facility] [place] [facility] Sep 02, 2023 05:30 PM VA-TOBACCO QUIT 15 YRS OR MORE [facility] [place] [facility] Apr 24, 2022 01:00 PM VA-TOBACCO FORMER USER [facility] [place] [facility] Apr 24, 2022 01:00 PM VA-TOBACCO QUIT 15 YRS OR MORE [facility] [place] [facility] Dec 05, 2021 02:00 PM VA-TOBACCO USE DEC LINED TO ANSWER [facility] [place] [facility] Nov 24, 2021 04:05 PM VA-TOBACCO USE DEC LINED TO ANSWER [facility] [place] Sep 20, 2020 08:40 AM VA-TOBACCO NEVER USED [facility] Advance Directives: All historical and [...] 11, 2016 ADVANCE DIRECTIVE ELROY CHÁVEZ [facility] Jul 08, 2006 ADVANCE DIRECTIVE [facility] Encounter Notes: All associated encounter notes This section contains the clinical notes associated to the Encounter. Date/Time Encounter Note(s) Provider Source Oct 13, 2024 03:37 PM [facility] NURSING NOTE: LOCAL TITLE: [facility] RN PROGRESS NOTE STANDARD TITLE: [facility] NURSING NOTE DATE OF NOTE: OCT 13, 2024@15:37 ENTRY DATE: OCT 13, 2024@15:37:54 AUTHOR: ADALGISA MCNAIR EXP COSIGNER: URGENCY: STATUS: COMPLETED [facility] RN [...] NEEDED TO SOFTEN STOOL Indication: FOR CONSTIPATION 10) EPLERENONE 25MG TAB TAKE ONE TABLET BY MOUTH ONCE DAILY ACTIVE (S) Indication: FOR HIGH BLOOD PRESSURE 11) KETOCONAZOLE 2% CREAM APPLY A THIN LAYER TOPICALLY TWICE ACTIVE DAILY NEEDED Indication: FOR SEBORRHEIC DERMATITIS 12) KETOCONAZOLE 2% SHAMPOO SHAMPOO SMALL AMOUNT TOPICALLY ONCE ACTIVE DAILY Indication: FOR FUNGAL INFECTION OF THE SKIN 13) LATANOPROST 0.005% OPH SOLN INSTILL 1 DROP INTO EACH EYE AT ACTIVE BEDTIME 14) LOSARTAN 100MG TAB TAKE ONE TABLET BY MOUTH ONCE DAILY FOR ACTIVE BLOOD PRESSURE/HEART Indication: FOR HIGH BLOOD PRESSURE 15) MULTIVIT/OPHTH AREDS2/LUTE/ZEAX CAP/TAB TAKE 1 CAPSULE BY ACTIVE MOUTH TWICE DAILY IN THE MORNING AND EVENING, WITH FOOD 16) PRIMIDONE 50MG TAB TAKE ONE TABLET BY MOUTH THREE TIMES A ACTIVE DAY 17) TIMOLOL MALEATE 0.5% OPH SOLN INSTILL 1 DROP INTO EACH EYE ACTIVE TWICE DAILY 18) TORSEMIDE 20MG TAB TAKE ONE TABLET BY MOUTH ONCE DAILY ACTIVE Inactive Outpatient Medications Status 1) ACETAMINOPHEN 500MG TAB TAKE TWO TABLETS BY MOUTH THREE TIMES DAILY NEEDED Indication: FOR PAIN Active Non-VA Medications Status 1) Non-VA OXYGEN [...] by: Facial Recognition Length of visit in home: 45 min Problem addressed for this visit:Med compliance, blindness, prostate CA, COPD Specimen(s) collected during this visit:PSA Labs collected right hand, tolerated well. Results to be faxed to [facility]. NURSING SUMMARY:VISIT MADE TO ROGELIO AT HOME FOR ASSESSMENT, LABS AND MED PREFILL. ROGELIO HAS BEEN FEELING WELL. NO RECENT FALLS. DENIES PAIN. NO ER VISITS. ROGELIO HAS UROLOGY APPT ON 10/17, PSA DRAWN TODAY, RESULTS TO BE FAXED TO [facility]. ROGELIO REPORTS HE HAS BEEN USING BREZTRI MDI AND HE DOES NOT LIKE IT AND FEELS IT IS NOT EFFECTIVE TRELEGY. ROGELIO AND SOLOMON REPORT FEELS WINDED, SHORT OF BREATH IN THE LATE AFTERNOONS WHICH DID NOT HAPPEN WHEN HE WAS USING TRELEGY. THIS DEXIGRAPH OPERATOR WILL ALERT PCP. ROGELIO HAS PULMONOLOGY APPT NEXT MONTH WITH . WAITING TO HEAR ON CHEST CT RESULTS. COMPLIANT WITH TAKING MEDS. PREFILLED FOR 4 WEEKS IN MED BOXES. ROGELIO WAS SEEN BY , WAS SUGGESTED USE REFRESH GEL DROPS AT NIGHT. ASKING IF THE [place] PCP CAN ORDER THIS. CONT. WITH OXYGEN AT HS ONLY. THIS DEXIGRAPH OPERATOR SUGGESTED WE UTILIZE CLINICAL RESEARCH PHYSICIAN TO ASSIST WITH FOOT CARE, SHOWERS AND SOME HOUSEKEEPING UPSTAIRS. ROGELIO SLEEPS UPSTAIRS AND USES THE UPSTAIRS BATHROOM, HE IS THE ONLY ONE TO USE IT. THE BATHROOM WAS VERY DIRTY, SHOWER , TOILET ETC. SOLOMON REPORTS SHE DOES NOT GO UP THERE VERY OFTEN AND DID NOT OFFER TO GO UP AND CLEAN IT. CANNOT SEE IT THEREFORE HE SAYS HE DOES NOT CARE MUCH. 'S FEET AND LOWER LEGS DRY, FEET ARE SCALY AND COULD USE LOTION MORE OFTEN. REFUSES CLINICAL RESEARCH PHYSICIAN, HE STATES IT IS NOT NECESSARY. THIS DEXIGRAPH OPERATOR WILL CONT. TO OFFER THESE SERVICES. DUE TO SEE PODIATRY IN ONE WEEK. Blood Pressure: 132/70, P78 R18 T 98.2 O2SAT 94% PAIN 0/10 WT 204LB EXAMINATION: Lungs:CLEAR Edema: NO EDEMA HR: REG Bowel/Bladder: URINE CLEAR. BM DAILY. EATING WELL. Skin: DRY SKIN. Home Safety USES WHITE CANE WHEN GOES OUT. 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 BENEFITS FROM ONGOING [facility] INTERDISCIPLINARY MGT. AND MEDICAL OVERSIGHT. AND CAREGIVER ARE INCLUDED IN DECISION MAKING. EDUCATION PROVIDED REGARDING MEDICATIONS, DISEASE MGT. WILL BE FREE FROM FALLS, INFECTIONS AND HOSPITALIZATIONS IN THE NEXT 30 DAYS. FAX PSA RESULTS TO [facility] TOMORROW. Patient verbalizes understanding to above and will call with any concerns or changes in condition. For emergent care call [phone]. Plan for next visit: 4 WEEKS, ASSESSMENT, MED PREFILL. FOLLOW UP ON UROLOGY, PULMONOLOGY VISITS. /esthela/ Adalgisa Mcnair RN [facility] document control specialist Signed: 10/13/2024 20:11 10/13/2024 ADDENDUM STATUS: COMPLETED PSA 36 FROM 10/12, FAXED TO [facility]. WILL HAVE THE OTHER LABS ORDERED DRAWN WHILE HE IS ON [facility] FOR PODIATRY APPT ON 10/21. /raleigh Mcnair RN [facility] document control specialist Signed: 10/13/2024 20:14 ADALGISA MCNAIR [place] [facility]
--- OUTSIDE RECORDS SUMMARY | 2024-11-16 10:47 | XMS_ITS | Encounter Summary ---
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 Role Phone GILES FUENTES Primary Care [...] CAREMARK PRESCRIPT ION GEHA Sep 14, 2014 [id number] [phone] FANY LEMUS ON PATIENT CAREMARK PRESCRIPT ION SUSI AL NAVEENO ONDINA TEIXEIRAA Sep 14, 2014 [id number] [phone] FANY LEMUS ON PATIENT CAREMARK PRESCRIPT ION Sep 14, 2014 [id number] [phone] FANY LEMUS ON PATIENT GEHA (SECONDARY ) PREFERRED PROVIDER ORGANIZAT ION (PPO) HIGH OPTIO N MCR A&B Sep 14, 2005 [id number] ALLAN,MYR ON PATIENT GEHA (SECONDARY ) PREFERRED PROVIDER ORGANIZAT ION (PPO) GEHA CONNE CTION DENT Sep 14, 2005 [id number] ALLAN,MYR ON PATIENT GEHA FEHB PREFERRED PROVIDER ORGANIZAT ION (PPO) SUSI AL GOV Sep 14, 2005 [id number] ALTH [id number] ALLAN,MYR ON PATIENT GEHA FEHB PREFERRED PROVIDER ORGANIZAT ION (PPO) SUSI AL* Sep 14, 1989 [id number] ALTH [id number] ALLAN,MYR ON PATIENT GEHA-BEHAV [facility] GEHA HIGH OPTIO N Sep 14, 2021 [id number] [phone] ALLAN,MYR ON PATIENT MEDICARE (WNR) MEDICARE (M) PART A May 15, 2000 PART A [id number] ALLAN,MYR ON PATIENT MEDICARE (WNR) MEDICARE (M) PART B May 15, 2000 PART B [id number] ALLAN,MYR ON PATIENT MEDICARE (WNR) MEDICARE (M) PART A May 15, 2000 PART A [id number] ALLAN,MYR ON PATIENT MEDICARE (WNR) MEDICARE (M) PART B May 15, 2000 PART B [id number] ALLAN,MYR ON PATIENT MEDICARE (WNR) MEDICARE (M) PART B May 15, 2000 PART B [id number] ALLAN,MYR ON PATIENT MEDICARE (WNR) MEDICARE (M) PART A May 15, 2000 PART A [id number] ALLAN,MYR ON PATIENT MEDICARE (WNR) MEDICARE (M) PART A May 15, 2000 PART A [id number] ALLAN,MYR ON PATIENT MEDICARE (WNR) MEDICARE (M) PART B May 15, 2000 PART B [id number] FANY LEMUS ON PATIENT Selected Encounter This section includes the information on record at [place] for the Encounter. Date/Time Encounter Type Encounter Description Reason Provider Source Oct 21, 2024 11:30 AM OFFICE O/P EST MOD 30 MIN PODIATRY ICD-10-CM L60.3 Nail dystrophy YULISA AGUIAR Verito Encounter Template Text not used by [place] Assessments - Encounter Diagnoses This section includes the primary and secondary diagnoses documented for the Encounter. Date/Time Primary/Secondary Diagnosis Diagnosis Name Provider Source Oct 21, 2024 12:00 PM PRIMARY Nail dystrophy YULISA AGUIAR Oct 21, 2024 12:00 PM SECONDARY Pain in left toe(s) YULISA AGUIAR Oct 21, 2024 12:00 PM SECONDARY Pain in right toe(s) YULISA AGUIAR Oct 21, 2024 12:00 PM SECONDARY Type 2 diabetes w diabetic peripheral angiopath w/o gangrene YULISA AGUIAR Plan of Treatment: Future Appointments (+ 6 months) and Future Tests (+/- 45 days) The Plan of Treatment section includes future care activities [facility] the [facility] [place] [facility] This section includes future appointments and future orders which are active, pending or scheduled. Future Appointments This section includes appointments that were scheduled to occur 6 months from the date of the Encounter, up to a maximum of 20 appointments. The data comes from all [place] treatment facilities. Appointment Date/Time Appointment Type Appointme nt Facility Name Feb 24, 2025 11:30 AM AMBULATORY - MEDICINE [facility] [place] Apr 13, 2025 02:30 PM AM[place]ULATORY - [place]ICINE [place] [facility] [place] [facility] Active, Pending, and Scheduled Orders This section includes a listing of several types of active, pending, and scheduled orders, including clinic medications orders, diagnostic test orders, procedure orders and consult orders; where the start date of the order is 45 days before the date of the Encounter or 45 days after the date of theEncounter. The data comes from all [place] treatment facilities. Test Date/Time Test Type Test Details Facility Name Oct 17, 2024 08:00 AM Laboratory - Chemistry Order HEMOGLOBIN A1C PANEL BLOOD (LAV-BLOOD) SP [facility] Lab Results: +/- 30 days of the encounter This section includes the Chemistry and Hematology Lab Results [facility] record with [facility] for the [facility]. Radiology Reports and Pathology Reports are provided separately, in subsequent sections. Lab Results This section contains the Chemistry/Hematology Results that were resulted 30 days before or 30 daysafter the date of the Encounter. Date/Time Source Result Type Result - Unit Interpretation Reference Range Comment Oct 21, 2024 11:05 AM [facility] VITAMIN D (25-OH) Specimen Type: SERUM No comment entered. Ordering Provider: GILES FUENTES Report Released Date/Time: Sep 02, 2024 08:56 AM Reporting Lab: [address] [address] Performing Lab: [address] [address] VITAMIN D (25-OH) 39 ng/mL 20-50 Oct 21, 2024 11:05 AM [facility] PTH INTACT Specimen Type: SERUM No comment entered. Ordering Provider: GILES FUENTES Report Released Date/Time: Sep 02, 2024 08:56 AM Reporting Lab: [facility] [address] [address] Performing Lab: [address] [address] PTH INTACT 77.4 pg/mL H 8.7-77.1 Oct 21, 2024 11:05 AM [facility] MICROALBUMIN CREATININE RATIO PANEL Specimen Type: URINE No comment entered. Ordering Provider: GILES FUENTES Report Released Date/Time: Sep 02, 2024 08:56 AM Reporting Lab: [address] [address] Performing Lab: [address] [address] MICROALBUMIN/C REATININE RATIO 11.9 mg/g 0-29.9 MICROALBUMIN,Q UANTITATIVE 2.4 mg/dL RR UNAVAIL CREATININE URINE 202.37 mg/dL Oct 21, 2024 11:05 AM [facility] LIVER FUNCTION Specimen Type: SERUM No comment entered. Ordering Provider: GILES FUENTES Report Released Date/Time: Sep 02, 2024 08:56 AM Reporting Lab: [facility] [address] [address] Performing Lab: [address] [address] PROTEIN,TOTAL 7.8 g/dL 6.0-8.3 ALBUMIN 3.9 g/dL 3.5-5.0 ALKALINE PHOSPHATASE 160 U/L H 40-150 AST 22 U/L 5-34 ALT 28 U/L BILIRUBIN, TOTAL 0.8 mg/dL 0.2-1.2 Oct 21, 2024 11:05 AM [facility] LIPID PANEL, NON FASTING Specimen Type: SERUM No comment entered. Ordering Provider: GILES FUENTES Report Released Date/Time: Sep 02, 2024 08:58 AM Reporting Lab: [facility] [address] [address] Performing Lab: [address] [address] CHOLESTEROL 139 mg/dL TRIGLYCERIDE 129 mg/dL 0-150 LDL calculated 69 mg/dL 0-129 CHOL/HDL 3.2 HDL CHOLESTEROL 44 mg/dL 40-60 Oct 21, 2024 11:05 AM [facility] BASIC METABOLIC PANEL (non-fasting) Specimen Type: SERUM No comment entered. Ordering Provider: GILES FUENTES Report Released Date/Time: Sep 02, 2024 08:56 AM Reporting Lab: [address] [address] Performing Lab: [address] [address] UREA NITROGEN 32 mg/dL H 7-25 GLUCOSE 122 mg/dL H 65-100 SODIUM 140 mmol/L 135-145 POTASSIUM 4.9 mmol/L 3.5-5.0 CHLORIDE 104 mmol/L 100-110 CO2 27 meq/L 20-30 CREATININE, Serum 1.06 mg/dL 0.50-1.40 eGFR(CKD-EPI 2020) 67 mL/min >60 Oct 21, 2024 11:05 AM [facility] CBC Specimen Type: BLOOD No comment entered. Ordering Provider: GILES FUENTES Report Released Date/Time: Sep 02, 2024 08:56 AM Reporting Lab: [place] [facility] [place] [facility] [address] [address] Performing Lab: [facility] [address] [address] WBC 8.46 10*3/uL 4.50-11.00 RBC 4.86 10*6/uL 4.23-5.66 HGB 14.9 g/dL 12.8-17 HCT 45.7 39.2-50.4 MCV 94.0 fL 82-99 MCHC 32.6 g/dL 30.8-35.1 PLT 180 10*3/uL 140-360 RDW-CV 12.9 12.0-16.0 MCH 30.7 pg 26.2-32.6 Oct 21, 2024 11:05 AM [facility] GAMMA-GTP Specimen Type: SERUM No comment entered. Ordering Provider: GILES FUENTES Report Released Date/Time: Oct 21, 2024 03:59 PM Reporting Lab: [facility] [address] [address] Performing Lab: [place] [facility] [address] [address] GAMMA-GTP 116 U/L H 10-65 Oct 12, 2024 01:30 PM [facility] PSA Specimen Type: SERUM No comment entered. Ordering Provider: GILES FUETNES Report Released Date/Time: Oct 12, 2024 01:21 PM Reporting Lab: [facility] [address] [address] Performing Lab: [facility] [address] [address] PSA 36.05 ng/mL H 0.00-4.00 Social History: [...] Date/Time Current Smoking Status Comment Emily ity Aug 11, 2018 11:06 AM [place]-TOBACCO QUIT 15 YRS OR MORE WHEELER Tobacco Use History This section includes a history of the smoking, or tobacco-related health factors, that were collected on or before the date of the Encounter. The data comes from the [place] facility where the Encounter took place. Date/Time Smoking Status/Tobacco Use Comment F acility Aug 11, 2018 11:06 AM [place]-TOBACCO QUIT 15 YRS OR MORE WHEEL[facility] January 27, 2018 10:21 AM LIFETIME NON-TOBACCO USER WHEELER Nov 10, 2016 10:18 AM QUIT TOBACCO USE > 7 YEARS AGO quit 20 years ago WHEELER Sep 10, 2015 10:20 AM QUIT TOBACCO USE > 7 YEARS AGO WHEELER Dec 08, 2005 02:29 PM QUIT TOBACCO USE > 7 YEARS AGO HX of tobacco use for approx 40 yrs. WHEELER Advance Directives: All historical and current Section Date Range: From patient's date of to the date document was created. This section includes ALL of a patient's completed or amended [place] Advance and Rescinded Directives. The entries below indicate that a directive exists for the patient, but an actual copy is not included with this document. The data comes from all [facility]. Date Advance Directives Provider Source Nov 11, 2016 ADVANCE DIRECTIVE ELROY CHÁVEZ [place] [facility] Jul 08, 2006 ADVANCE DIRECTIVE [facility] Encounter Notes: All associated encounter notes This section contains the clinical notes associated to the Encounter. Date/Time Encounter Note(s) Provider Source Oct 21, 2024 12:01 PM PODIATRY NOTE: LOCAL TITLE: PODIATRY PAVE FOOT EXAM STANDARD TITLE: PODIATRY NOTE DATE OF NOTE: OCT 21, 2024@12:01 ENTRY DATE: OCT 21, 2024@12:01:04 AUTHOR: ROSS,YULISA F EXP COSIGNER: URGENCY: STATUS: COMPLETED PAVE FOOT EXAM A foot risk level was completed. The following risk level was identified for this patient: +POD RISK SCORE+ *--LEVEL 3 - (HIGH RISK)* ANY of the following: Severe obstructive peripheral arterial disease Ulceration; OR history of ulceration, osteomyelitis, or amputation Charcot joint w/foot deformity Chronic kidney disease, stage 4 or higher (Decreased sensation, foot deformity, and minor foot infection may be present or absent) LEVEL 3 FOOT EDUCATION: 1. Advised patient that extra depth footwear with soft molded inserts and braces may be required. 2. Advised patient not to walk barefoot. Instructed the patient to pay close attention to the style and fit of shoes. 3. Explained the importance of daily foot checks. Explained that loss of sensation leads to callouses. Callouses break down, which result in ulcers that may lead to gangrene and amputation. 4. Stressed the importance of daily foot hygiene. Warm (not hot) bathing of the feet, complete drying and thorough inspection for changes in the condition of the skin constitute daily foot care. Demonstrated how to do a thorough foot check. 5. Emphasized the use of clean, non-restrictive socks/stockings and well fitting shoes. 6. Stressed the importance of immediate follow-up of any foot injuries or ulcers. Explained that he/she should be non-weight bearing whenever there are lesions on the foot, to prevent cellular damage. Level of Understanding: Good Patient/Family Response to Foot Care Teaching Patient walks barefoot: A few times per month Patient/caregiver able to clean feet at least once daily: Yes Patient/caregiver has difficulty examining feet: No /esthela/ YULISA AGUIAR DPM [employer] Signed: 10/21/2024 12:01 YULISA AGUIAR WHEELER Oct 21, 2024 09:24 AM PODIATRY NOTE: LOCAL TITLE: PODIATRY NOTE STANDARD TITLE: PODIATRY NOTE DATE OF NOTE: OCT 21, 2024@09:24 ENTRY DATE: OCT 21, 2024@09:24:53 AUTHOR: YULISA AGUIAR COSIGNER: URGENCY: STATUS: COMPLETED NOTE: HAS RECEIVED BOTH COVID VACCINE DOSES + 4 BOOSTERS AT [facility] LAST SEEN FOR TREATMENT: 06/03/2024 HPI: Pt. is an 89 yo alert WDWN CAUC MALE who presents for initial podiatric examination with Dr. Aguiar for treatment of a presenting complaint of painful THICKENED ingrown toenails. Patient has TYPE II DM & is at risk of injury with self or other non-professional care as wellas being legally blind. Patient has been referred by: DR. CORTEZ Location of symptoms are: NAILS 1-2-3-4-5 BILATERAL Onset of symptoms has been several weeks due to this being a recurrent condition that has been exacerbating over the past few weeks. Duration of symptoms is daily with periods of exacerbation and remission. Description of symptoms is of an aching- nature. Contributing factors are: shoes and increased activity. PMH: Active problems - Computerized Problem List is the source for the following: *NOTE: REVIEWED ABOVE, NOTING NON-CONTRIBUTORY TO THE CC OTHER THAN THE PRESENCE OF TYPE II DM & LEGALLY BLIND *NOTE: REVIEWED ABOVE NOTING NO CHANGES SINCE PREVIOUS VISIT *NOTE: PLEASE SEE PROBLEM LIST TEMPLATE FOR COMPLETE LIST NEEDED. Family History: Non-contributory Social History: N/A *NOTE: DENIES ANY RECENT CHANGES IN MEDS UPON QUESTIONING TODAY-SEE RECONCILIATION PERFOMED THIS DATE BELOW TOBACCO USE =NONE Allergies:SULFA DRUGS Previous Surgery/Hospitalization: N/A TO THE CC *NOTE: A1C= 5.7 (LAST TAKEN: 12/2023) FBS=DNP RISK=2 HEIGHT:199 lb [90.26 kg] (12/18/2023 12:00) WEIGHT:70 in [177.8 cm] (08/23/2019 10:24) REVIEW OF SYSTEMS:DEFERRED BEING NON-CONTRIBUTORY TO THE CC & I HAVE REVIEWED THE PCP NOTES & PMH WELL. O: DERMATOLOGICAL: Exam reveals skin color to be WNL TEXT IS DRY. Temp is diminished warm to cool proximal to distal. There is absence of hair noted. Nails are thickened yellow-brown discolored and displaying flakiness, crumbling, sub-ungual debris and rubor in the affected nail grooves. The affected nails are 1-2-3-4-5 bilat. There are IS A superficial painful hyperkeratotic lesion noted at this time located at MEDIAL LEFT HALLUX. There are no rashes, ulcers, indurations or nodules noted. VASCULAR: Exam reveals DP & PT pulses to be absent non-palpable bilateral. CFT is < sec x 10. There are no superficial varices noted and there is +2 edema noted. MUSCULOSKELETAL: Exam reveals muscle strength and tone to be equal & symmetricalbilaterally & WNL for an individual of this age and present physical- medical condition. There is pain free ROM at all joints distal to and including the ankle. *THERE ARE NO APPARENT BONY ABNORMALITIES NOTED AT THIS TIME. NEUROLOGICAL: Exam reveals S/D, vibratory, light touch & proprioception sensations to be equal & symmetrical bilaterally & diminished for an individual of this age and present physical-medical status. Protective sensation utilizing a [place] lOg monofilament is 10/10 bilateral. *NOTE: *YEARLY COMPLETE PAVE EXAM PERFORMED TODAY - SEE BELOW. BIOMECHANICAL: Exam is deferred at this time as BEING non-contributory to the cc . 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 P: Treatment consists of debridement-reduction of all nails via manual & electric means with excision of the offending nail borders and thinning of the nail plates to the point of imminent bleeding. Additional treatment consists of surgical PARING-debridement of all hyperkeratosis utilizing sharp dissection. All care rendered without complications & the patient is progressing well after podiatric care this date and will be scheduled for periodic podiatric care in an attempt to prevent future complications due to the underlying medical conditions. Treatment by a non-professional could be extremely hazardous to the patient's wellbeing due to the underlying medical conditions. Return to Clinic: 16Weeks (02/24 @ 11:30am) *DISCUSSED NEW PROTOCOLS AND CALLED JOSE DE JESUS TODAY FOR RESCHEDULING I DISCUSSED THE FINDINGS & PLAN WITH PATIENT (UNCHANGED SINCE PREVIOUS VISIT) & PATIENT AGREES AND UNDERSTANDS PLANPATIENT IS LEGALLY BLIND AND MIRROR IS NOT NECESSARY discussed a variety of social topics as well as the weather and he is doing well despite being blind Medication Reconciliation: PERFORMED TODAY - SEE BELOW. Outpatient: Has the patient been taking medications as documented in the EMLR? YES: The patient has been taking medications as documented in the EMLR. Essential Medication List for Review used to complete this medication reconciliation. INCLUDED IN THIS LIST: Alphabetical list of active outpatient prescriptions dispensed from this [place] (local) and dispensed from another [place] or [facility] facility (remote) as well as [...] list may not be complete. Please check JLListen Up. Allergies/ADRs (Tool #5) FACILITY ALLERGY/ADR -------- [facility] [place] SULFA DRUGS [facility] INFLUENZA [facility] SULFA DRUGS Med Recon NoGlossary (Tool #1) INCLUDED IN THIS LIST: Alphabetical list of active outpatient prescriptions dispensed from this [place] (local) and dispensed from another [place] or [facility] facility (remote) as well as inpatient orders (local pending and active), local clinic medications, locally documented non-VA medications, and local prescriptions that have or been discontinued in the past 90 days. Non-VA Meds Last Documented On: Dec 21, 2023 NOTE The display of VA prescriptions dispensed from another [place] or [facility] facility (remote) is limited to active outpatient prescription entries matched to National Drug File at the originating site and may not include some items such as investigational drugs, compounds, etc. NOT INCLUDED IN THIS LIST: Medications self-entered by the patient into personal health records (i.e. FINDING ROVER) are NOT included in this list. Non-VA medications documented outside this [place], remote inpatient orders (regardless of status) and remote clinic medications are NOT included in this list. The patient and provider must always discuss medications the patient is taking, regardless of where the medication was dispensed or obtained. OUTPT ACETAMINOPHEN 500MG TAB (Status = ) TAKE TWO TABLETS BY MOUTH THREE TIMES DAILY NEEDED FOR PAIN Rx# [id number] Last Released: 06/23/24 Qty/Days Supply: 200/34 Rx Expiration Date: 09/15/24 Refills Remainin Indication: FOR PAIN OUTPT ALBUTEROL 90MCG (CFC-F) 200D ORAL INHL (Status = Active) INHALE 1 TO 2 PUFFS BY MOUTH FOUR TIMES DAILY NEEDED FOR BRONCHOSPASM Rx# [id number] Last Released: 09/01/24 Qty/Days Supply: Rx Expiration Date: 09/01/25 Refills Remainin Indication: FOR BRONCHOSPASM OUTPT AMLODIPINE BESYLATE 10MG TAB (Status = Active) TAKE ONE TABLET BY MOUTH ONCE DAILY FOR BLOOD PRESSURE/HEART, DO NOT TAKE WITH GRAPEFRUIT JUICE Rx# [id number] Last Released: 09/28/24 Qty/Days Supply: 90 Rx Expiration Date: 03/30/25 Refills Remainin OUTPT ASPIRIN 81MG EC TAB (Status = Active) TAKE ONE TABLET BY MOUTH ONCE DAILY TO PREVENT STROKE/HEART ATTACK Rx# [id number] Last Released: 07/26/24 Qty/Days Supply: 120/90 Rx Expiration Date: 02/10/25 Refills Remainin Indication: FOR BLOOD CLOT PREVENTION FOLLOWING PCI OUTPT ATORVASTATIN CALCIUM 80MG TAB (Status = Discontinued) TAKE ONE TABLET BY MOUTH ONCE DAILY FOR CHOLESTEROL Rx# [id number] Last Released: 06/30/24 Qty/Days Supply: Rx Expiration Date: 10/01/24 Refills Remainin OUTPT ATORVASTATIN CALCIUM 80MG TAB (Status = Active) TAKE ONE TABLET BY MOUTH ONCE DAILY FOR CHOLESTEROL Rx# [id number] Last Released: 09/28/24 Qty/Days Supply: Rx Expiration Date: 08/31/25 Refills Remainin OUTPT BREZTRI 160/9/4.8MCG/ACT 120D ORAL INHL (Status = Active) INHALE 2 INHALATIONS BY MOUTH TWICE DAILY FOR BRONCHOSPASM PREVENTION WITH COPD -RINSE MOUTH AFTER USE Rx# [id number] Last Released: 09/08/24 Qty/Days Supply: Rx Expiration Date: 09/03/25 Refills Remainin Indication: FOR BRONCHOSPASM PREVENTION WITH COPD OUTPT BRIMONIDINE 0.2%/BRINZOLAMID 1% OPH SUSP (Status = Discontinued) INSTILL 1 DROP INTO EACH EYE TWICE DAILY Rx# [id number] Last Released: 07/18/24 Qty/Days Supply: Rx Expiration Date: 11/26/24 Refills Remainin OUTPT BRIMONIDINE 0.2%/BRINZOLAMID 1% OPH SUSP (Status = Active/Suspended) INSTILL 1 DROP INTO EACH EYE TWICE DAILY Rx# [id number] Last Released: 10/05/24 Qty/Days Supply: 05/13 Rx Expiration Date: 10/06/25 Refills Remainin OUTPT CARVEDILOL 3.125MG TAB (Status = Discontinued) TAKE ONE TABLET BY MOUTH TWICE DAILY FOR HIGH BLOOD PRESSURE Rx# [id number] Last Released: 05/23/24 Qty/Days Supply: Rx Expiration Date: 03/09/25 Refills Remainin Indication: FOR HIGH BLOOD PRESSURE OUTPT CARVEDILOL 3.125MG TAB (Status = Active) TAKE ONE TABLET BY MOUTH TWICE DAILY FOR HIGH BLOOD PRESSURE Rx# [id number] Last Released: 08/22/24 Qty/Days Supply: Rx Expiration Date: 08/19/25 Refills Remainin Indication: FOR HIGH BLOOD PRESSURE OUTPT CHOLECALCIF 25MCG (D3-1,000UNIT) TAB (Status = Discontinued) TAKE ONE TABLET BY MOUTH ONCE DAILY FOR VITAMIN SUPPLEMENTATION Rx# [id number] Last Released: 05/23/24 Qty/Days Supply: Rx Expiration Date: 08/04/24 Refills Remainin OUTPT CHOLECALCIF 25MCG (D3-1,000UNIT) TAB (Status = Active) TAKE ONE TABLET BY MOUTH ONCE DAILY FOR VITAMIN SUPPLEMENTATION Rx# [id number] Last Released: 08/15/24 Qty/Days Supply: Rx Expiration Date: 08/16/25 Refills Remainin OUTPT DOCUSATE NA 100MG CAP (Status = Active) TAKE ONE CAPSULE BY MOUTH TWICE DAILY NEEDED TO SOFTEN STOOL Rx# [id number] Last Released: 11/09/23 Qty/Days Supply: 100/50 Rx Expiration Date: 10/28/24 Refills Remainin Indication: FOR CONSTIPATION OUTPT EPLERENONE 25MG TAB (Status = Discontinued) TAKE ONE TABLET BY MOUTH ONCE DAILY FOR HIGH BLOOD PRESSURE Rx# [id number] Last Released: 08/04/24 Qty/Days Supply: 90 Rx Expiration Date: 09/15/24 Refills Remainin Indication: FOR HIGH BLOOD PRESSURE OUTPT EPLERENONE 25MG TAB (Status = Active/Suspended) TAKE ONE TABLET BY MOUTH ONCE DAILY FOR HIGH BLOOD PRESSURE Rx# [id number] Last Released: Supply: Rx Expiration Date: 08/31/25 Refills Remainin Indication: FOR HIGH BLOOD PRESSURE OUTPT HYDROPHILIC (EQV AQUAPHOR) TOP OINT (Status = ) APPLY LIBERAL AMOUNT TOPICALLY ONCE DAILY NEEDED FOR SKIN PROTECTION Rx# [id number] Last Released: 05/23/24 Qty/Days Supply: 454/90 Rx Expiration Date: 08/16/24 Refills Remainin Indication: FOR SKIN PROTECTION OUTPT KETOCONAZOLE 2% CREAM (Status = Active) APPLY A THIN LAYER TOPICALLY TWICE DAILY NEEDED FOR SEBORRHEIC DERMATITIS Rx# [id number] Last Released: QtDays Supply: 60 Rx Expiration Date: 09/20/25 Refills Remainin Indication: FOR SEBORRHEIC DERMATITIS OUTPT KETOCONAZOLE 2% SHAMPOO (Status = Active) SHAMPOO SMALL AMOUNT TOPICALLY ONCE DAILY Rx# [id number] Last Released: 08/30/24 Qty/Days Supply: 120/90 Rx Expiration Date: 10/28/24 Refills Remainin Indication: FOR FUNGAL INFECTION OF THE SKIN OUTPT LATANOPROST 0.005% OPH SOLN (Status = Discontinued) INSTILL 1 DROP INTO EACH EYE AT BEDTIME Rx# [id number] Last Released: 08/30/24 Qty/Days Supply: 7.5 Rx Expiration Date: 01/11/25 Refills Remainin OUTPT LATANOPROST 0.005% OPH SOLN (Status = Active) INSTILL 1 DROP INTO EACH EYE AT BEDTIME Rx# [id number] Last Released: 10/06/24 Qty/Days Supply: 2.02/10 Rx Expiration Date: 10/06/25 Refills Remainin OUTPT LOSARTAN 100MG TAB (Status = Discontinued) TAKE ONE TABLET BY MOUTH ONCE DAILY FOR BLOOD PRESSURE/HEART Rx# [id number] Last Released: 06/23/24 Qty/Days Supply: 90/ Rx Expiration Date: 10/01/24 Refills Remainin Indication: FOR HIGH BLOOD PRESSURE OUTPT LOSARTAN 100MG TAB (Status = Active) TAKE ONE TABLET BY MOUTH ONCE DAILY FOR BLOOD PRESSURE/HEART Rx# [id number] Last Released: 09/13/24 Qty/Days Supply: 90/ Rx Expiration Date: 08/31/25 Refills Remainin Indication: FOR HIGH BLOOD PRESSURE OUTPT MULTIVIT/OPHTH AREDS2/LUTE/ZEAX CAP/TAB (Status = Active) TAKE 1 CAPSULE BY MOUTH TWICE DAILY IN THE MORNING AND EVENING, WITH FOOD Rx# [id number] Last Released: 10/10/24 Qty/Days Supply: 120/60 Rx Expiration Date: 03/30/25 Refills Remainin Non-VA OXYGEN MISCELLANEOUS USE 2 LITERS VIA NC AT NIGHT DIRECTED NEEDED Medication prescribed by Non-VA provider. OUTPT PRIMIDONE 50MG TAB (Status = Discontinued) TAKE ONE TABLET BY MOUTH THREE TIMES A DAY Rx# [id number] Last Released: 06/28/24 Qty/Days Supply: 270/90 Rx Expiration Date: 10/01/24 Refills Remainin OUTPT PRIMIDONE 50MG TAB (Status = Active) TAKE ONE TABLET BY MOUTH THREE TIMES A DAY Rx# [id number] Last Released: 09/13/24 Qty/Days Supply: Rx Expiration Date: 08/31/25 Refills Remainin OUTPT TIMOLOL MALEATE 0.5% OPH SOLN (Status = Discontinued) INSTILL 1 DROP INTO EACH EYE TWICE DAILY Rx# [id number] Last Released: 09/01/24 Qty/Days Supply: Rx Expiration Date: 09/01/25 Refills Remainin OUTPT TIMOLOL MALEATE 0.5% OPH SOLN (Status = Active) INSTILL 1 DROP INTO EACH EYE TWICE DAILY Rx# [id number] Last Released: 10/05/24 Qty/Days Supply: 02/10 Rx Expiration Date: 10/06/25 Refills Remainin OUTPT TORSEMIDE 20MG TAB (Status = Active) TAKE ONE TABLET BY MOUTH ONCE DAILY Rx# [id number] Last Released: 08/15/24 Qty/Days Supply: Rx Expiration Date: 05/13/25 Refills Remainin SUPPLIES PAVE Foot Check: A complete foot check was completed at this encounter. VISUAL INSPECTION: Includes inspection for skin breaks, deformity, erythema, trauma, pallor on elevation, dependent rubor, nail deformities, extensive callus and pitting edema. Visual exam results: Abnormal Observations: Thickened toenails PEDAL PULSES: Includes palpation of dorsalis and posterior tibial pulses and signs/symptoms of vascular compromise like pain, pallor, parasthesia or paralysis. Absent: Comment: PT PULSES ARE ABSENT NON-PALPABLE BILAT SENSORY CHECK: Includes 10 gram Monofilament ([place]-Negrita) test of sensation. Intact (Greater than or equal to 80% of sites checked) Abnormal (Less than 80% of sites checked): Intact Comment: VIBRATORY & MONOFILAMENT ARE WNL BILAT HIGH-RISK: HIGH RISK INFORMATION PROVIDED: 1. Advised patient that extra depth footwear with soft molded inserts and braces may be required. 2. Advised patient not to walk barefoot. 3. Explained the importance of daily foot checks. 4. Stressed the importance of daily foot hygiene, including bathing, complete drying and thorough inspection for changes. The patient verbalized understanding and was offered a detailed handout on diabetic foot care. Patient is established patient of Podiatry and/or Vascular: Last scheduled appointment: JUN 03, 2024@11:30 SPR PODIATRY 1 Comment: /esthela/ YULISA AGUIAR DPM TECHN[employer] Signed: 10/21/2024 12:00 YULISA AGUIAR
--- OUTSIDE RECORDS SUMMARY | 2024-11-16 10:47 | XMS_ITS ---
Author Name [facility] [place] [facility] [place] [facility] Address [address] [place] [address] Care Team Providers Care Windows Laptop Technician Name Role Phone GILES FUENTES Primary Care [...] CAREMARK PRESCRIPT ION SREEKANTH Sep 14, 2014 [id number] [phone] FANY LEMUS ON PATIENT CAREMARK PRESCRIPT ION SUSI ATKINSON Sep 14, 2014 [id number] [phone] FANY LEMUS ON PATIENT CAREMARK PRESCRIPT ION Sep 14, 2014 [id number] ALLAN,MYR ON PATIENT GEHA (SECONDARY ) PREFERRED PROVIDER ORGANIZAT ION (PPO) HIGH OPTIO N [facility] A&B Sep 14, 2005 [id number] ALLAN,MYR ON PATIENT GEHA (SECONDARY ) PREFERRED PROVIDER ORGANIZAT ION (PPO) GEHA CONNE CTION DENT Sep 14, 2005 [id number] ALLAN,MYR ON PATIENT GEHA FEHB PREFERRED PROVIDER ORGANIZAT ION (PPO) SUSI AL GOV Sep 14, 2005 [id number] ALTH [id number] ALLAN,MYR ON PATIENT GEHA FEHB PREFERRED PROVIDER ORGANIZAT ION (PPO) SUSI AL* Sep 14, 1989 [id number] ALTH [id number] ALLAN,MYR ON PATIENT GEHA-BEHAV [facility] GEHA HIGH OPTIO N Sep 14, 2021 [id number] ALLAN,MYR ON PATIENT MEDICARE (WNR) MEDICARE (M) PART A May 15, 2000 PART A [id number] ALLAN,MYR ON PATIENT MEDICARE (WNR) MEDICARE (M) PART B May 15, 2000 PART B [id number] ALLAN,MYR ON PATIENT MEDICARE (WNR) MEDICARE (M) PART A May 15, 2000 PART A [id number] [phone] ALLAN,MYR ON PATIENT MEDICARE (WNR) MEDICARE (M) PART B May 15, 2000 PART B [id number] ALLAN,MYR ON PATIENT MEDICARE (WNR) MEDICARE (M) PART A May 15, 2000 PART A [id number] [id number] [phone] [id number] ALLAN,MYR ON PATIENT MEDICARE (WNR) MEDICARE (M) PART B May 15, 2000 PART B [id number] [id number] [phone] [id number] ALLAN,MYR ON PATIENT MEDICARE (WNR) MEDICARE (M) PART A May 15, 2000 PART A [id number] [id number] FANY LEMUS ON PATIENT MEDICARE (WNR) MEDICARE (M) PART B May 15, 2000 PART B [id number] [id number] FANY LEMUS ON PATIENT Selected Encounter This section includes the information on record at [place] for the Encounter. Date/Time Encounter Type Encounter Description Reason Pro vider Source Jun 21, 2024 12:40 PM Outpatient Encounter ADMIN PAT ACTIVTIES (MASNONCT) IHE Encounter Template Text not used by [place] Plan of Treatment: Future Appointments (+ 6 months) and Future Tests (+/- 45 days) The Plan of Treatment section includes future care activities for the patient from all [place] treatmentfacilities. This section includes future appointments and future orders which are active, pending or scheduled. Future Appointments This section includes appointments that were scheduled to occur 6 months from the date of the Encounter, up to a maximum of 20 appointments. The data comes from all [place] treatment facilities. Appointment Date/Time Appointment Type Appointme nt Facility Name Sep 26, 2024 10:00 AM AMBULATORY - REHAB MEDICIN E [facility] Oct 21, 2024 11:30 AM AMBULATORY - MEDICINE [facility] Social History: Smoking Status (Most current) and Tobacco Use (All prior to encounter date) This section includes the most current, and the historical, smoking and tobacco- related health factors from the [place] facility where the Encounter took place. Current Smoking Status This section includes the most current smoking, or tobacco-related health factor, from the [place] facility where the Encounter took place. Date/Time Current Smoking Status Comment Facil ity Sep 02, 2023 05:30 PM VA-TOBACCO FORMER USER [facility] Tobacco Use History This section includes a history of the smoking, or tobacco-related health factors, that were collected on or before the date of the Encounter. The data comes from the [place] facility where the Encounter took place. Date/Time Smoking Status/Tobacco Use Comment F acility Sep 02, 2023 05:30 PM [place] QUIT 15 YRS OR MORE [facility] [place] [facility] Apr 24, 2022 01:00 PM [facility] Apr 24, 2022 01:00 PM [place]-TO[place] 15 YRS OR MORE [facility] Dec 05, 2021 02:00 PM VA-TOBACCO USE [facility] Nov 24, 2021 04:05 PM [facility]-TOBACCO [facility] Sep 20, 2020 08:40 AM VA-TOBACCO NEVER USED [facility] Advance Directives: All historical and current Section Date Range: From patient's date of to the date document was created. This section includes ALL of a patient's completed or amended [place] Advance and Rescinded Directives. The entries below indicate that a directive exists for the patient, but an actual copy is not included with this document. The data comes from all [place] facilities. Date Advance Directives Provider Source Nov 11, 2016 ADVANCE DIRECTIVE [facility]OY [facility] Jul 08, 2006 ADVANCE DIRECTIVE CHAPARRO [facility] Encounter Notes: All associated encounter notes This section contains the clinical notes associated to the Encounter. Date/Time Encounter Note(s) Provider Source Jun 17, 2024 12:01 AM CLINICAL WARNING: LOCAL TITLE: COMMUNICATION AUTHORIZATION STANDARD TITLE: CLINICAL WARNING DATE OF NOTE: JUN 17, 2024@00:01 ENTRY DATE: JUN 21, 2024@12:41:11 AUTHOR: THANIA ABBASI COSIGNER: URGENCY: STATUS: COMPLETED Family/Caregiver Name: Primary: SOLOMON CHÁVEZ Secondary: Tertiary: Authorized Clinic & Topics: All Clinic's & Topics: All Care/Coordination, Scheduling Appointments, Prescriptions, Test Results Primary Care: All Care/Coordination, Scheduling Appointments, Prescriptions, Test Results Mental Health: All Care/Coordination, Scheduling Appointments, Prescriptions, Test Results Specialty Care: All Care/Coordination, Scheduling Appointments, Prescriptions, Test Results [id number] Protected Info: [ ] Drug Abuse [ ] Alcohol Abuse [ ] HIV [ ] Sickle Cell Expiration: Date: [ ] At [ ] Through [X] At end of care /esthela/ THANIA ABBASI Signed: 06/21/2024 12:43 TAHNIA ABBASI [facility]
--- OUTSIDE RECORDS SUMMARY | 2024-11-16 10:47 | XMS_ITS | Encounter Summary ---
Author Name [facility] [place] [place] [facility] [place] Address [address] [place] [address] Care Team Providers Care Specialty Development Consultant Name Role Phone GILES FUENTES Primary Care [...] CAREMARK PRESCRIPT ION GEHA Sep 14, 2014 [id number] [phone] FANY LEMUS ON PATIENT CAREMARK PRESCRIPT ION SUSI AL NAVEENO ONDINA TEIXEIRAA Sep 14, 2014 [id number] [phone] FANY LEMUS ON PATIENT CAREMARK PRESCRIPT ION Sep 14, 2014 [id number] [phone] FANY LEMUS ON PATIENT GEHA (SECONDARY ) PREFERRED PROVIDER ORGANIZAT ION (PPO) HIGH OPTIO N MCR A&B Sep 14, 2005 [id number] [id number] ALLAN,MYR ON PATIENT GEHA (SECONDARY ) PREFERRED PROVIDER ORGANIZAT ION (PPO) GEHA CONNE CTION DENT Sep 14, 2005 [id number] ALLAN,MYR ON PATIENT GEHA FEHB PREFERRED PROVIDER ORGANIZAT ION (PPO) SUSI AL GOV Sep 14, 2005 [id number] ALTH [id number] ALLAN,MYR ON PATIENT GEHA FEHB PREFERRED PROVIDER ORGANIZAT ION (PPO) SUSI AL* Sep 14, 1989 [id number] ALTH [id number] ALLAN,MYR ON PATIENT GEHA-BEHAV [facility] GEHA HIGH OPTIO N Sep 14, 2021 [id number] ALLAN,MYR ON PATIENT MEDICARE (WNR) MEDICARE (M) PART A May 15, 2000 PART A [id number] 00 ALLAN,MYR ON PATIENT MEDICARE (WNR) MEDICARE (M) PART B May 15, 2000 PART B [id number] 00 ALLAN,MYR ON PATIENT MEDICARE (WNR) MEDICARE (M) PART A May 15, 2000 PART A [id number] [id number] ALLAN,MYR ON PATIENT MEDICARE (WNR) MEDICARE (M) PART B May 15, 2000 PART B [id number] [id number] 00 ALLAN,MYR ON PATIENT MEDICARE (WNR) MEDICARE (M) PART A May 15, 2000 PART A [id number] [id number] [phone] ALLAN,MYR ON PATIENT MEDICARE (WNR) MEDICARE (M) PART B May 15, 2000 PART B [id number] [id number] ALLAN,MYR ON PATIENT MEDICARE (WNR) MEDICARE (M) PART A May 15, 2000 PART A [id number] [id number] ALLAN,MYR ON PATIENT MEDICARE (WNR) MEDICARE (M) PART B May 15, 2000 PART B [id number] QP12 FANY LEMUS ON PATIENT Selected Encounter This section includes the information on record at [place] for the Encounter. Date/Time Encounter Type Encounter Description Reason Provider Source Jun 03, 2024 11:30 AM OFFICE O/P EST LOW 20 MIN PODIATRY ICD-10-CM L60.3 Nail dystrophy YULISA AGUIAR Verito Encounter Template Text not used by [place] Assessments - Encounter Diagnoses This section includes the primary and secondary diagnoses documented for the Encounter. Date/Time Primary/Secondary Diagnosis Diagnosis Name Provider Source Jun 20, 2024 11:50 AM PRIMARY Nail dystrophy YULISA AGUIAR Jun 20, 2024 11:50 AM SECONDARY Pain in left toe(s) YULISA AGUIAR Jun 20, 2024 11:50 AM SECONDARY Pain in right toe(s) YULISA AGUIAR Jun 20, 2024 11:50 AM SECONDARY Type 2 diabetes w diabetic peripheral angiopath w/o gangrene YULISA AGUIAR Plan of Treatment: Future Appointments (+ 6 months) and Future Tests (+/- 45 days) The Plan of Treatment section includes future care activities for the patient from all [place] treatmentfacilities. This section includes future appointments and future orders which are active, pending or scheduled. Future Appointments This section includes appointments that were scheduled to occur 6 months from the date of the Encounter, up to a maximum of 20 appointments. The data comes from all [place] treatment facilities. Appointment Date/Time Appointment Type Appointme nt Facility Name Sep 26, 2024 10:00 AM AMBULAT[facility] [place] [facility] Oct 21, 2024 11:30 AM [facility] Social History: Smoking Status (Most current) and Tobacco Use (All prior to encounter date) This section includes the most current, and the historical, smoking and tobacco- related health factors from the [place] facility where the Encounter took place. Current Smoking Status This section includes the most current smoking, or tobacco-related health factor, from the [place] facility where the Encounter took place. Date/Time Current Smoking Status Robina guerrero Aug 11, 2018 11:06 AM [place]-TOBACCO QUIT 15 YRS OR MORE [place] Tobacco Use History This section includes a history of the smoking, or tobacco-related health factors, that were collected on or before the date of the Encounter. The data comes from the [place] facility where the Encounter took place. Date/Time Smoking Status/Tobacco Use Comment F david Aug 11, 2018 11:06 AM VA-TOBACCO QUIT 15 YRS OR MORE [place] January 27, 2018 10:21 AM LIFETIME NON-TOBACCO USER [place] Nov 10, 2016 10:18 AM QUIT TOBACCO USE > 7 YEARS AGO quit 20 years ago [place] Sep 10, 2015 10:20 AM QUIT TOBACCO USE > 7 YEARS AGO [place] Dec 08, 2005 02:29 PM QUIT TOBACCO USE > 7 YEARS AGO HX of tobacco use for approx 40 yrs. [place] Advance Directives: All historical and current Section Date Range: From patient's date of to the date document was created. This section includes ALL of a patient's completed or amended [place] Advance and Rescinded Directives. The entries below indicate that a directive exists for the patient, but an actual copy is not included with this document. The data comes from all [place] facilities. Date Advance Directives Provider Source Nov 11, 2016 ADVANCE DIRECTIVE ELROY CHÁVEZ [place] [facility] Jul 08, 2006 ADVANCE DIRECTIVE CHAPARRO DICK [facility] Encounter Notes: All associated encounter notes This section contains the clinical notes associated to the Encounter. Date/Time Encounter Note(s) Provider Source Jun 03, 2024 07:39 AM PODIATRY NOTE: LOCAL TITLE: PODIATRY NOTE STANDARD TITLE: PODIATRY NOTE DATE OF NOTE: JUN 03, 2024@07:39 ENTRY DATE: JUN 03, 2024@07:39:08 AUTHOR: YULISA AGUIAR EXP COSIGNER: URGENCY: STATUS: COMPLETED NOTE: HAS RECEIVED BOTH COVID VACCINE DOSES + 4 BOOSTERS AT [facility] LAST SEEN FOR TREATMENT: 01/12/2024 HPI: Pt. is a 89 yo alert WDWN CAUC MALE who [...] CC *NOTE: A1C= 5.7 (LAST TAKEN: 12/2023) FBS= RISK=2 HEIGHT:199 lb [90.26 kg] (12/18/2023 12:00) [...] strength and tone to be equal & symmetrical bilaterally & WNL for an individual of this age and present physical-medical condition. There is pain free ROM at all joints distal to and including the ankle. *THERE ARE NO APPARENT BONY ABNORMALITIES NOTED AT THIS TIME. NEUROLOGICAL: Exam reveals S/D, vibratory, light touch & proprioception sensations to be equal & symmetrical bilaterally & diminished for an individual of this age and present physical-medical status. Protective sensation utilizing a [place]-Negrita lOg monofilament is 10/10 bilateral. BIOMECHANICAL: Exam is deferred at this time [...] the underlying medical conditions. Return to Clinic: 20Weeks (10/21 @ ?) *DISCUSSED NEW PROTOCOLS AND CALLED JOSE DE JESUS TODAY FOR RESCHEDULING I DISCUSSED THE FINDINGS & PLAN WITH PATIENT (UNCHANGED SINCE PREVIOUS VISIT) & PATIENT AGREES AND UNDERSTANDS PLANPATIENT IOS LEGALLY BLIND AND MIRROR IS NOT NECESSARY Medication Reconciliation: PERFORMED TODAY - SEE BELOW. Outpatient: Has the patient been taking medications as documented in the EMLR? YES: The patient has been taking medications as documented in the EMLR. Essential Medication List for Review used to complete this medication reconciliation. INCLUDED IN THIS LIST: Alphabetical list of active outpatient prescriptions dispensed from this [facility] (local) and dispensed from another VA or [facility] facility (remote) as well as [...] JLV. Allergies/ADRs (Tool #5) FACILITY ALLERGY/ADR -------- [place] [facility] [place] [facility] SULFA DRUGS [facility] [place] INFLUENZA [facility] SULFA DRUGS [facility] ([facility] INCLUDED IN THIS LIST: Alphabetical list of active outpatient prescriptions dispensed from this [place] (local) and dispensed from another [place] or [facility] facility (remote) as well as inpatient orders (local pending and active), local clinic medications, locally documented non-VA medications, and local prescriptions that have or been discontinued in the past 90 days. Non-VA Meds Last Documented On: Dec 21, 2023 NOTE The display of VA prescriptions dispensed from another [place] or [facility] facility (remote) is limited to active outpatient prescription entries matched to National Drug File at the originating site and may not include some items such as investigational drugs, compounds, etc. NOT INCLUDED IN THIS LIST: Medications self-entered by the patient into personal health records (i.e. [facility]) are NOT included in this list. Non-VA medications documented outside this [place], remote inpatient orders (regardless of status) and remote clinic medications are NOT included in this list. The patient and provider must always discuss medications the patient is taking, regardless of where the medication was dispensed or obtained. OUTPT ACETAMINOPHEN 500MG TAB (Status = Active) TAKE TWO TABLETS BY MOUTH THREE TIMES DAILY NEEDED FOR PAIN Rx# [id number] Last Released: 09/16/23 Qty/Days Supply: 200/34 Rx Expiration Date: 09/15/24 Refills Remainin Indication: FOR PAIN OUTPT ALOGLIPTIN 25MG TAB (Status = Discontinued) TAKE ONE TABLET BY MOUTH ONCE DAILY IN PLACE OF SITAGLIPTIN Rx# [id number] Last Released: 01/19/24 Qty/Days Supply: 90 Rx Expiration Date: 11/06/24 Refills Remainin Indication: FOR TYPE 2 DIABETES MELLITUS OUTPT AMLODIPINE BESYLATE 10MG TAB (Status = Discontinued) TAKE ONE TABLET BY MOUTH ONCE DAILY FOR BLOOD PRESSURE/HEART, DO NOT TAKE WITH GRAPEFRUIT JUICE Rx# [id number] Last Released: 01/25/24 Qty/Days Supply: Rx Expiration Date: 04/20/24 Refills Remainin OUTPT AMLODIPINE BESYLATE 10MG TAB (Status = Active) TAKE ONE TABLET BY MOUTH ONCE DAILY FOR BLOOD PRESSURE/HEART, DO NOT TAKE WITH GRAPEFRUIT JUICE Rx# [id number] Last Released: 04/07/24 Qty/Days Supply: Rx Expiration Date: 03/30/25 Refills Remainin OUTPT ASPIRIN 81MG EC TAB (Status = Active) TAKE ONE TABLET BY MOUTH ONCE DAILY TO PREVENT STROKE/HEART ATTACK Rx# [id number] Last Released: 04/27/24 Qty/Days Supply: 120/ Rx Expiration Date: 02/10/25 Refills Remainin Indication: FOR BLOOD CLOT PREVENTION FOLLOWING PCI OUTPT ATORVASTATIN CALCIUM 80MG TAB (Status = Active) TAKE ONE TABLET BY MOUTH ONCE DAILY FOR CHOLESTEROL Rx# [id number] Last Released: 04/07/24 Qty/Days Supply: Rx Expiration Date: 10/01/24 Refills Remainin OUTPT BRIMONIDINE 0.2%/BRINZOLAMID 1% OPH SUSP (Status = Active) INSTILL 1 DROP INTO EACH EYE TWICE DAILY Rx# [id number] Last Released: 03/28/24 Qty/Days Supply: Rx Expiration Date: 11/26/24 Refills Remainin OUTPT CARVEDILOL 3.125MG TAB (Status = Active) TAKE ONE TABLET BY MOUTH TWICE DAILY FOR HIGH BLOOD PRESSURE Rx# [id number] Last Released: 05/23/24 Qty/Days Supply: 180/ Rx Expiration Date: 03/09/25 Refills Remainin Indication: FOR HIGH BLOOD PRESSURE OUTPT CHOLECALCIF 25MCG (D3-1,000UNIT) TAB (Status = Active) TAKE ONE TABLET BY MOUTH ONCE DAILY FOR VITAMIN SUPPLEMENTATION Rx# [id number] Last Released: 05/23/24 Qty/Days Supply: 90/ Rx Expiration Date: 08/04/24 Refills Remainin OUTPT DOCUSATE NA 100MG CAP (Status = Active) TAKE ONE CAPSULE BY MOUTH TWICE DAILY NEEDED TO SOFTEN STOOL Rx# [id number] Last Released: 11/09/23 Qty/Days Supply: 100/50 Rx Expiration Date: 10/28/24 Refills Remainin Indication: FOR CONSTIPATION OUTPT EPLERENONE 25MG TAB (Status = Active) TAKE ONE TABLET BY MOUTH ONCE DAILY FOR HIGH BLOOD PRESSURE Rx# [id number] Last Released: 05/02/24 Qty/Days Supply: 90 Rx Expiration Date: 09/15/24 Refills Remainin Indication: FOR HIGH BLOOD PRESSURE Non-VA FLUTICASONE/UMECLID/VILANT (TRELEGY 200) INHL,ORAL INHALE BY MOUTH ONCE DAILY OUTPT HYDROPHILIC (EQV AQUAPHOR) TOP OINT (Status = Active) APPLY LIBERAL AMOUNT TOPICALLY ONCE DAILY NEEDED FOR SKIN PROTECTION Rx# [id number] Last Released: 05/23/24 Qty/Days Supply: 454/90 Rx Expiration Date: 08/16/24 Refills Remainin Indication: FOR SKIN PROTECTION OUTPT KETOCONAZOLE 2% SHAMPOO (Status = Active) SHAMPOO SMALL AMOUNT TOPICALLY ONCE DAILY Rx# [id number] Last Released: 05/02/24 Qty/Days Supply: 120/90 Rx Expiration Date: 10/28/24 Refills Remainin Indication: FOR FUNGAL INFECTION OF THE SKIN OUTPT LATANOPROST 0.005% OPH SOLN (Status = Active) INSTILL 1 DROP INTO EACH EYE AT BEDTIME Rx# [id number] Last Released: 04/06/24 Qty/Days Supply: 7. Rx Expiration Date: 01/11/25 Refills Remainin OUTPT LOSARTAN 100MG TAB (Status = Active) TAKE ONE TABLET BY MOUTH ONCE DAILY FOR BLOOD PRESSURE/HEART Rx# [id number] Last Released: 03/15/24 Qty/Days Supply: 90/ Rx Expiration Date: 10/01/24 Refills Remainin Indication: FOR HIGH BLOOD PRESSURE OUTPT MULTIVIT/OPHTH AREDS2/LUTE/ZEAX CAP/TAB (Status = Discontinued) TAKE 1 CAPSULE BY MOUTH TWICE DAILY IN THE MORNING AND EVENING, WITH FOOD Rx# [id number] Last Released: 03/08/24 Qty/Days Supply: 120/60 Rx Expiration Date: 03/25/24 Refills Remainin OUTPT MULTIVIT/OPHTH AREDS2/LUTE/ZEAX CAP/TAB (Status = Active) TAKE 1 CAPSULE BY MOUTH TWICE DAILY IN THE MORNING AND EVENING, WITH FOOD Rx# [id number] Last Released: 04/18/24 Qty/Days Supply: 120/60 Rx Expiration Date: 03/30/25 Refills Remainin Non-VA OXYGEN MISCELLANEOUS USE 2 LITERS VIA NC AT NIGHT DIRECTED NEEDED Medication prescribed by Non-VA provider. OUTPT PRIMIDONE 50MG TAB (Status = Active) TAKE ONE TABLET BY MOUTH THREE TIMES A DAY Rx# [id number] Last Released: 03/15/24 Qty/Days Supply: Rx Expiration Date: 10/01/24 Refills Remainin OUTPT SITAGLIPTIN (EQV-ZITUVIO) 100MG TAB (Status = Discontinued) TAKE ONE TABLET BY MOUTH ONCE DAILY FOR DIABETES (IN PLACE OF ALOGLIPTIN) Rx# [id number] Last Released: 04/29/24 Qty/Days Supply: Rx Expiration Date: 04/29/25 Refills Remainin Indication: FOR DIABETES OUTPT TIMOLOL MALEATE 0.5% OPH GEL (Status = Active) APPLY 1 DROP INTO EACH EYE TWICE DAILY Rx# [id number] Last Released: 03/28/24 Qty/Days Supply: Rx Expiration Date: 07/14/24 Refills Remainin OUTPT TIMOLOL MALEATE 0.5% OPH SOLN (Status = Active) INSTILL 1 DROP INTO EACH EYE TWICE DAILY Rx# [id number] Last Released: 03/09/24 Qty/Days Supply: Rx Expiration Date: 11/26/24 Refills Remainin OUTPT TORSEMIDE 20MG TAB (Status = Discontinued) TAKE ONE TABLET BY MOUTH ONCE DAILY Rx# [id number] Last Released: 05/02/24 Qty/Days Supply: Rx Expiration Date: 02/10/25 Refills Remainin OUTPT TORSEMIDE 20MG TAB (Status = Active) TAKE ONE TABLET BY MOUTH ONCE DAILY Rx# [id number] Last Released: 06/01/24 Qty/Days Supply: Rx Expiration Date: 05/13/25 Refills Remainin SUPPLIES /esthela/ YULISA AGUIAR DPM CHEMISTRY TECHNICIAN Signed: 06/03/2024 12:00 YULISA AGUIAR [place]
--- OUTSIDE RECORDS SUMMARY | 2024-11-16 10:47 | XMS_ITS | Encounter Summary ---
Author Name [facility] [place] 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 Operator Name Role Phone GILES FUENTES Primary [...] CAREMARK PRESCRIPT ION GEHA Sep 14, 2014 [id number] [phone] FANY LEMUS ON PATIENT CAREMARK PRESCRIPT ION SUSI AL NAVEENO ONDINA TEIXEIRAA Sep 14, 2014 [id number] [phone] FANY LEMUS ON PATIENT CAREMARK PRESCRIPT ION Sep 14, 2014 [id number] [phone] FANY LEMUS ON PATIENT GEHA (SECONDARY ) PREFERRED PROVIDER ORGANIZAT ION (PPO) HIGH OPTIO N MCR A&B Sep 14, 2005 [id number] [phone] [id number] [phone] ALLAN,MYR ON PATIENT GEHA (SECONDARY ) PREFERRED PROVIDER ORGANIZAT ION (PPO) GEHA CONNE CTION DENT Sep 14, 2005 [id number] [phone] ALLAN,MYR ON PATIENT GEHA FEHB PREFERRED PROVIDER ORGANIZAT ION (PPO) SUSI AL GOV Sep 14, 2005 [id number] ALTH [id number] ALLAN,MYR ON PATIENT GEHA FEHB PREFERRED PROVIDER ORGANIZAT ION (PPO) SUSI AL* Sep 14, 1989 [id number] ALTH [id number] ALLAN,MYR ON PATIENT GEHA-BEHAV [facility] GEHA HIGH OPTIO N Sep 14, 2021 [id number] ALLAN,MYR ON PATIENT MEDICARE (WNR) MEDICARE (M) PART A May 15, 2000 PART A [id number] ALLAN,MYR ON PATIENT MEDICARE (WNR) MEDICARE (M) PART B May 15, 2000 PART B [id number] ALLAN,MYR ON PATIENT MEDICARE (WNR) MEDICARE (M) PART B May 15, 2000 PART B [id number] ALLAN,MYR ON PATIENT MEDICARE (WNR) MEDICARE (M) PART A May 15, 2000 PART A [id number] ALLAN,MYR ON PATIENT MEDICARE (WNR) MEDICARE (M) PART A May 15, 2000 PART A [id number] ALLAN,MYR ON PATIENT MEDICARE (WNR) MEDICARE (M) PART B May 15, 2000 PART B [id number] [phone] ALLAN,MYR ON PATIENT MEDICARE (WNR) MEDICARE (M) PART A May 15, 2000 PART A [id number] ALLAN,MYR ON PATIENT MEDICARE (WNR) MEDICARE (M) PART B May 15, 2000 PART B [id number] FANY LEMUS ON PATIENT Selected Encounter This section includes the information on record at [place] for the Encounter. Date/Time Encounter Type Encounter Description Reason Provider Source Jan 12, 2024 02:00 PM OFFICE O/P EST MOD 30 MIN PODIATRY ICD-10-CM L60.3 Nail dystrophy YULISA AGUIAR Encounter Template Text not used by [place] Assessments - Encounter Diagnoses This section includes the primary and secondary diagnoses documented for the Encounter. Date/Time Primary/Secondary Diagnosis Diagnosis Name Provider Source February 05, 2024 01:32 PM PRIMARY Nail dystrophy YULISA AGUIAR February 05, 2024 01:32 PM SECONDARY Corns and callosities YULISA AGUIAR February 05, 2024 01:32 PM SECONDARY Pain in left toe(s) YULISA AGUIAR February 05, 2024 01:32 PM SECONDARY Pain in right toe(s) YULISA AGUIAR February 05, 2024 01:32 PM SECONDARY Type 2 diabetes w diabetic peripheral angiopath w/o gangrene YULISA AGUIAR Plan of Treatment: Future Appointments (+ 6 months) and Future Tests (+/- 45 days) The Plan of Treatment section includes future care activities for the patient from all [place] [facility]. This section includes future appointments and future orders which are active, pending or scheduled. Future Appointments This section includes appointments that were scheduled to occur 6 months from the date of the Encounter, up to a maximum of 20 appointments. The data comes from all [place] treatment facilities. Appointment Date/Time Appointment Type Appointme nt Facility Name Mar 24, 2024 01:30 PM [facility]ORY [place] [facility] [place] Mar 24, 2024 02:00 PM AM[facility]ULATORY - [facility]IC[facility] [place] [facility] Mar 31, 2024 11:00 AM [facility]UL[facility] [place] [facility] Mar 31, 2024 01:00 PM AMBULATORY - [facility] MEDICIN [facility] [place] [facility] May 04, 2024 01:00 PM AMBULATORY - [facility] MEDICIN E [facility] [place] [facility] Jun 03, 2024 11:30 AM AMBULATORY - MEDICINE [facility] Lab Results: +/- 30 days of the encounter This section includes the Chemistry and Hematology Lab Results on record with [place] for the patient. Radiology Reports and Pathology Reports are provided separately, in subsequent sections. Lab Results This section contains the Chemistry/Hematology Results that were resulted 30 days before or 30 daysafter the date of the Encounter. Date/Time Source Result Type Result - Unit Interpretation Reference Range Comment Dec 24, 2023 11:22 AM [facility] VITAMIN B12 Specimen Type: SERUM No comment entered. Ordering Provider: GILES FUENTES Report Released Date/Time: Dec 08, 2023 01:18 PM Reporting Lab: [address] [address] Performing Lab: [address] [address] VITAMIN B12 443 pg/mL 200-900 Dec 24, 2023 11:22 AM [facility] LIPID PANEL, NON FASTING Specimen Type: SERUM No comment entered. Ordering Provider: GILES FUENTES Report Released Date/Time: Dec 08, 2023 01:18 PM Reporting Lab: [address] [address] Performing Lab: [address] [address] CHOLESTEROL 120 mg/dL TRIGLYCERIDE 84 mg/dL 0-150 LDL calculated 56 mg/dL 0-129 CHOL/HDL 2.6 HDL CHOLESTEROL 47 mg/dL 40-60 Dec 24, 2023 11:22 AM [facility] LIVER FUNCTION Specimen Type: SERUM No comment entered. Ordering Provider: GILES FUENTES Report Released Date/Time: Dec 08, 2023 01:18 PM Reporting Lab: [address] [address] Performing Lab: [address] [address] PROTEIN,TOTAL 7.3 g/dL 6.0-8.3 ALBUMIN 3.6 g/dL 3.5-5.0 ALKALINE PHOSPHATASE 170 U/L H 40-150 AST 25 U/L 5-34 ALT 34 U/L BILIRUBIN, TOTAL 0.7 mg/dL 0.2-1.2 Dec 24, 2023 11:22 AM [facility] MAGNESIUM Specimen Type: SERUM No comment entered. Ordering Provider: GILES FUENTES Report Released Date/Time: Dec 08, 2023 01:18 PM Reporting [facility] [address] [address] Performing Lab: [facility] [address] [address] MAGNESIUM 2.0 mg/dL 1.6-2.6 Dec 24, 2023 11:22 AM [facility] BASIC METABOLIC PANEL (non-fasting) Specimen Type: SERUM No comment entered. Ordering Provider: GILES FUENTES Report Released Date/Time: Dec 08, 2023 01:18 PM Reporting Lab: [facility] [address] [address] Performing Lab: [facility] [address] [address] UREA NITROGEN 30 mg/dL H 7-25 GLUCOSE 88 mg/dL 65-100 SODIUM 141 mmol/L 135-145 POTASSIUM 4.7 mmol/L 3.5-5.0 CHLORIDE 106 mmol/L 100-110 CO2 26 meq/L 20-30 CREATININE, Serum 0.84 mg/dL 0.50-1.40 eGFR(CKD-EPI 2020) 83 mL/min >60 Dec 24, 2023 11:21 AM [facility] TSH Specimen Type: SERUM No comment entered. Ordering Provider: GILES FUENTES Report Released Date/Time: Oct 28, 2023 12:29 PM Reporting Lab: [facility] [address] [address] Performing Lab: [address] [address] TSH 1.40 u[IU]/mL 0.35-5.00 Dec 24, 2023 11:21 AM [facility] HEMOGLOBIN A1C PANEL Specimen Type: BLOOD Comment: [...] Oct 06, 2023 10:49 AM Reporting Lab: [facility] [address] [address] Performing Lab: [address] [address] HEMOGLOBIN A1C 5.7 H 4.0-5.6 Social History: Smoking Status (Most current) and Tobacco Use (All prior to encounter date) This section includes the most current, and the historical, smoking and tobacco- related health factors from the [place] facility where the Encounter took place. Current Smoking Status This section includes the most current smoking, or tobacco-related health factor, from the [place] facility where the Encounter took place. Date/Time Current Smoking Status Comment Emily ity Aug 11, 2018 11:06 AM [place]-TOBACCO QUIT 15 YRS OR MORE [facility] Tobacco Use History This section includes a history of the smoking, or tobacco-related health factors, that were collected on or before the date of the Encounter. The data comes from the [place] facility where the Encounter took place. Date/Time Smoking Status/Tobacco Use Comment F acility Aug 11, 2018 11:06 AM [place]-TOBACCO QUIT 15 YRS OR MORE [facility] January 27, 2018 10:21 AM LIFETIME NON-TOBACCO USER [facility] Nov 10, 2016 10:18 AM QUIT TOBACCO USE > 7 YEARS AGO quit 20 years ago [facility] Sep 10, 2015 10:20 AM QUIT TOBACCO USE > 7 YEARS AGO [facility] Dec 08, 2005 02:29 PM QUIT TOBACCO USE > 7 YEARS AGO HX of tobacco use for approx 40 yrs. [facility] Advance Directives: All historical and current Section Date Range: From patient's date of to the date document was created. This section includes ALL of a patient's completed or amended [place] Advance and Rescinded Directives. The entries below indicate that a directive exists for the patient, but an actual copy is not included with this document. The data comes from all [place] facilities. Date Advance Directives Provider Source Nov 11, 2016 ADVANCE DIRECTIVE ELROY CHÁVEZ [facility] Jul 08, 2006 ADVANCE DIRECTIVE [facility] Encounter Notes: All associated encounter notes This section contains the clinical notes associated to the Encounter. Date/Time Encounter Note(s) Provider Source Jan 12, 2024 10:48 AM PODIATRY NOTE: LOCAL TITLE: PODIATRY NOTE STANDARD TITLE: PODIATRY NOTE DATE OF NOTE: JAN 12, 2024@10:48 ENTRY DATE: JAN 12, 2024@10:48:41 AUTHOR: YULISA AGUIAR COSIGNER: URGENCY: STATUS: COMPLETED NAME: SREEDHAR LEMUS DATE: JAN 12, 2024 : May PCP: GILES FUENTES NOTE: HAS RECEIVED BOTH COVID VACCINE DOSES + 4 BOOSTERS AT [facility] LAST SEEN: INITIAL CONSULT VISIT TODAY(WITH DR. AGUIAR) LAST SEEN BY DR. CORTEZ 10/06/2023) HPI: Pt. is a 88 yo alert WDWN CAUC MALE who presents [...] Contributing factors are: shoes and increased activity. Previous treatment: DR. CORTEZ 10/06/2023 PMH: Active problems - Computerized Problem List is the source for the followin. Dependence on nocturnal oxygen therapy 2. Under care of multiple providers 3. Tremor 4. Narrow angle glaucoma 5. Diabetes mellitus 6. Ex-smoker 7. Chronic ischemic heart disease (SNOMED CT 796693350) 8. Coronary artery disease 9. Exudative age-related macular degeneration (SNOMED CT 521428749) 10. Gastroesophageal reflux disease without esophagitis 11. 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 Personal History of Colonic Polyps 13. Obesity 14. Essential hypertension (SNOMED CT 41954667) 15. Hyperlipidemia (SNOMED CT 72745016) 16. Osteoarthritis (SNOMED CT 318565835) 17. Chronic obstructive lung disease (SNOMED CT 08391548) 18. Prostate cancer (SNOMED CT 835571401) 19. Legal blindness (SNOMED CT 12856093) 20. H/O: tuberculosis 21. Asbestosis (SNOMED CT 86195112) *NOTE: REVIEWED ABOVE, NOTING NON-CONTRIBUTORY TO THE CC OTHER THAN THE PRESENCE OF TYPE II DM & LEGALLY BLIND Family History: Non-contributory Social History: N/A Current medications: Active Outpatient Medications (including Supplies): *NOTE: DENIES ANY RECENT CHANGES IN MEDS UPON QUESTIONING TODAY-SEE RECONCILIATION PERFOMED THIS DATE BELOW TOBACCO USE =NONE Active Outpatient Medications Status = 1) ACETAMINOPHEN 500MG TAB TAKE TWO TABLETS BY MOUTH ACTIVE THREE TIMES DAILY NEEDED FOR PAIN 2) ALOGLIPTIN 25MG TAB TAKE ONE TABLET BY MOUTH ONCE ACTIVE DAILY IN PLACE OF SITAGLIPTIN 3) AMLODIPINE [...] TWICE ACTIVE DAILY NEEDED TO SOFTEN STOOL 8) EPLERENONE 25MG TAB TAKE ONE TABLET BY MOUTH ONCE ACTIVE DAILY FOR HIGH BLOOD PRESSURE 9) KETOCONAZOLE 2% SHAMPOO SHAMPOO SMALL AMOUNT ACTIVE TOPICALLY ONCE DAILY 10) LATANOPROST 0.005% OPH SOLN INSTILL 1 DROP INTO EACH ACTIVE (S) EYE AT BEDTIME 11) LOSARTAN 100MG TAB TAKE ONE TABLET BY MOUTH ONCE ACTIVE (S) DAILY FOR BLOOD PRESSURE/HEART 12) MULTIVIT/OPHTH AREDS2/LUTE/ZEAX CAP/TAB TAKE 1 ACTIVE CAPSULE BY MOUTH TWICE DAILY IN THE MORNING AND EVENING, WITH FOOD 13) POLYETHYLENE GLYCOL 3350 ORAL PWDR TAKE 17 GRAMS(FILL ACTIVE CAP TO 17GM LINE) BY MOUTH ONCE DAILY NEEDED FOR CONSTIPATION [MIX WITH 4 TO 8OZ. OF BEVERAGE] 14) PRIMIDONE 50MG TAB TAKE ONE TABLET BY MOUTH THREE ACTIVE TIMES A DAY 15) PRODIGY NO CODE (GLUCOSE) TEST STRIP USE 1 STRIP TO ACTIVE TEST BLOOD SUGARS TWICE A WEEK NEEDED 16) TIMOLOL MALEATE 0.5% OPH GEL APPLY 1 DROP INTO EACH ACTIVE EYE TWICE DAILY 17) TIMOLOL MALEATE 0.5% OPH SOLN INSTILL 1 DROP INTO ACTIVE EACH EYE TWICE DAILY 18) TORSEMIDE 20MG TAB TAKE ONE TABLET BY MOUTH ONCE ACTIVE DAILY Active Non-VA Medications Status = 1) Non-VA ASPIRIN 81MG EC TAB 81MG BY MOUTH ONCE DAILY ACTIVE 2) Non-VA CARVEDILOL 3.125MG TAB 3.125MG BY MOUTH TWICE ACTIVE DAILY 3) Non-VA FLUTICASONE/UMECLID/VILANT (TRELEGY 200) ACTIVE INHL,ORAL BY MOUTH 4) Non-VA OXYGEN MISCELLANEOUS 2 LITERS VIA NC AT NIGHT ACTIVE DIRECTED NEEDED 22 Total Medications Allergies:SULFA DRUGS Previous Surgery/Hospitalization: N/A TO THE CC *NOTE: A1C= 5.7 (LAST TAKEN: 12/2023) FBS= RISK=2 HEIGHT:199 lb [90.26 kg] (12/18/2023 12:00) WEIGHT:70 in [177.8 cm] (08/23/2019 10:24) REVIEW OF SYSTEMS: O: DERMATOLOGICAL: Exam reveals skin color to [...] present physical-medical status. Protective sensation utilizing a Mcgregor-Negrita lOg monofilament is 10/10 bilateral. BIOMECHANICAL: Exam is deferred at this time as BEING non-contributory to the cc . 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 [...] underlying medical conditions. Return to Clinic: 20Weeks (06/02 @ 1:30PM) *DISCUSSED NEW PROTOCOLS AND CALLED JOSE DE JESUS TODAY FOR RESCHEDULING I DISCUSSED THE FINDINGS & PLAN WITH PATIENT (UNCHANGED SINCE PREVIOUS VISIT) & PATIENT AGREES AND UNDERSTANDS PLAN Medication Reconciliation: PERFORMED TODAY - SEE BELOW. Outpatient: Has the patient been taking medications as documented in the EMLR? YES: The patient has been taking medications as documented in the EMLR. Essential Medication List for Review used to complete this medication reconciliation. INCLUDED IN THIS LIST: Alphabetical list of active outpatient prescriptions dispensed from this [place] (local) and dispensed from another [place] or [facility] facility (remote) [...] whether with a VA or non-VA provider. /esthela/ YULISA GAUIAR DPM ELECTRONICS ENGINEER Signed: 01/12/2024 14:24 YULISA AGUIAR
--- OUTSIDE RECORDS SUMMARY | 2024-11-16 10:47 | XMS_ITS | Encounter Summary ---
Author Name [facility] [place] [facility] [place] [facility] [place] [facility] [place] Address [address] [place] [id number] Care Team Providers Care Outside Plant Field Engineer Name Role Phone GILES FUENTES Primary Care [...] CAREMARK PRESCRIPT ION GEKEO Sep 14, 2014 [id number] FANY LEMUS ON PATIENT CAREMARK PRESCRIPT ION SUSI ATKINSON Sep 14, 2014 [id number] [phone] FANY LEMUS ON PATIENT CAREMARK PRESCRIPT ION Sep 14, 2014 [id number] [phone] ALLAN,MYR ON PATIENT GEHA (SECONDARY ) PREFERRED PROVIDER ORGANIZAT ION (PPO) HIGH OPTIO N [facility] A&B Sep 14, 2005 [id number] ALLAN,MYR ON PATIENT GEHA (SECONDARY ) PREFERRED PROVIDER ORGANIZAT ION (PPO) GEHA CONNE CTION DENT Sep 14, 2005 [id number] ALLAN,MYR ON PATIENT GEHA FEHB PREFERRED PROVIDER ORGANIZAT ION (PPO) SUSI AL GOV Sep 14, 2005 [id number] ALTH [id number] ALLAN,MYR ON PATIENT GEHA FEHB PREFERRED PROVIDER ORGANIZAT ION (PPO) SUSI AL* Sep 14, 1989 [id number] ALTH [id number] ALLAN,MYR ON PATIENT GEHA-[facility] GEHA HIGH OPTIO N Sep 14, 2021 [id number] [phone] ALLAN,MYR ON PATIENT MEDICARE (WNR) MEDICARE (M) PART A May 15, 2000 PART A [id number] ALLAN,MYR ON PATIENT MEDICARE (WNR) MEDICARE (M) PART B May 15, 2000 PART B [id number] ALLAN,MYR ON PATIENT MEDICARE (WNR) MEDICARE (M) PART A May 15, 2000 PART A [id number] ALLAN,MYR ON PATIENT MEDICARE (WNR) MEDICARE (M) PART B May 15, 2000 PART B [id number] ALLAN,MYR ON PATIENT MEDICARE (WNR) MEDICARE (M) PART A May 15, 2000 PART A [id number] ALLAN,MYR ON PATIENT MEDICARE (WNR) MEDICARE (M) PART B May 15, 2000 PART B [id number] ALLAN,MYR ON PATIENT MEDICARE (WNR) MEDICARE (M) PART A May 15, 2000 PART A [id number] FANY LEMUS ON PATIENT MEDICARE (WNR) MEDICARE (M) PART B May 15, 2000 PART B [id number] FANY LEMUS ON PATIENT Selected Encounter This section includes the information on record at [place] for the Encounter. 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 Current Smoking Status This section includes the most current smoking, or tobacco-related health factor, from the [place] facility where the Encounter took place. Date/Time Current Smoking Status Comment Emily guerrero Sep 02, 2023 05:30 PM VA-TOBACCO FORMER USER [facility] Tobacco Use History This section includes a history of the smoking, or tobacco-related health factors, that were collected on or before the date of the Encounter. The data comes from the [place] facility where the Encounter took place. Date/Time Smoking Status/Tobacco Use Comment F acility Sep 02, 2023 05:30 PM VA-TOBACCO QUIT 15 YRS OR MORE [place] [facility] [place] [facility] Apr 24, 2022 01:00 PM VA-TOBACCO FORMER USER [place] [facility] [place] [facility] Apr 24, 2022 01:00 PM VA-TOBACCO QUIT 15 YRS OR MORE [place] [facility] [place] [facility] Dec 05, 2021 02:00 PM VA-TOBACCO USE DEC LINED TO ANSWER [place] [facility] [place] [facility] Nov 24, 2021 04:05 PM VA-TOBACCO USE DEC LINED TO ANSWER [place] [facility] Sep 20, 2020 08:40 AM VA-TOBACCO NEVER [facility]ED [facility] Advance Directives: All historical and current Section Date Range: From patient's date of to the date document was created. This section includes ALL of a patient's completed or amended [place] Advance and Rescinded Directives. The entries below indicate that a directive exists for the patient, but an actual copy is not included with this document. The data comes from all [place] facilities. Date Advance Directives Provider Source Nov 11, 2016 ADVANCE DIRECTIVE ELROY CHÁVEZ [place] [facility] [place] [facility] Jul 08, 2006 ADVANCE DIRECTIVE CHAPARRO DICK [facility] Encounter Notes: All associated encounter notes This section contains the clinical notes associated to the Encounter. Date/Time Encounter Note(s) Provider Source May 12, 2024 12:44 PM ADDENDUM: LOCAL TITLE: Addendum STANDARD TITLE: ADDENDUM DATE OF NOTE: MAY 12, 2024@12:44:44 ENTRY DATE: MAY 12, 2024@12:44:45 AUTHOR: JOSE DE JESUS MONTGOMERY COSIGNER: URGENCY: STATUS: COMPLETED Appropriate to stop DPP-4 inhibitor (sitagliptin) to decrease pill burden as 's A1c is well within goal. This parts data writer to discontinue Rx at this time. /esthela/ JOSE DE JESUS MONTGOM[facility] Clinical Pharmacist Practitioner Signed: 05/12/2024 12:46 Receipt Acknowledged By: 05/12/2024 15:05 /es/ GILES FUENTES [facility] NURSE PRACTITIONER 05/12/2024 19:49 /es/ Adalgisa Pina RN [facility] supervisor shop --- Original Document --- 04/04/24 [facility] PHARMACY MEDICATION REVIEW: Leonel Lemus is a 88 year-old WHITE MALE. PMH (per problem list/chart [...] TWICE ACTIVE DAILY FOR HIGH BLOOD PRESSURE * NEW 8) CHOLECALCIF 25MCG (D3-1,000UNIT) TAB TAKE ONE [...] TABLET BY MOUTH ONCE ACTIVE DAILY * not currently taking? Active Non-VA Medications Status 1) Non-VA FLUTICASONE/UMECLID/VILANT (TRELEGY 200) ACTIVE INHL,ORAL BY MOUTH 2) Non-VA OXYGEN MISCELLANEOUS 2 LITERS VIA NC AT NIGHT ACTIVE DIRECTED NEEDED THE ABOVE MEDICATIONS WERE REVIEWED FOR: ADR, potential incompatibilities, compliance, duplication of therapy, and indications on problem list Other Rx/OTC/Herbals: polyethylene glycol (exp) High Alert Meds: alogliptin Look Alike/Sound Alike Meds: acetaminophen, atorvastatin, carvedilol Duplication of Therapy: timolol maleate (eye drops and eye gel) Excessive Duration: none Vitals: ======= Ht: 70 in [177.8 cm] (08/23/2019 10:24) Wt: 197.6 lb [89.63 kg] (03/24/2024 11:00) BMI: 28.4 BP: 118/70 (03/24/2024 11:00) HR: 94 (03/24/2024 11:00) Pain: 0 (03/24/2024 11:00) Labs: ===== SERUM Na K BUN SCr [...] g/dL (12/24/23) ASSESSMENT: In the last 90 days - No falls/hospitalizations/infec tions noted - Per the 12/18/23 [facility] RN, non-VA provider started andrés on low-dose carvedilol given elevated HRs. Andrés has not been taking torsemide as it makes him urinate too much. - Andrés sustained a fall ~01/06/24 (please see #3 below for additional details). - Per the 01/22/24 [facility] RN note, andrés agreeable to [facility] RN doing prefills. 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 - Andrés was seen by [facility] on 01/29/24. PSA significantly increased. PET scan ordered. INTERVENTIONS/SUGGESTIONS: 1. Patient's medications were reviewed for [...] risk of hypokalemia; last K WNL * amlodipine/torsemide/epleren one/losartan/carvedilol: concurrent use may increase risk of hypotension; [...] CCB, max dose ARB, aldosterone antagonist, beta cassia (recently added), and loop diuretic; BPs reasonably well-controlled with HRs in 70s-90s; not taking torsemide recently as it causes him to urinate too much * COPD - on non-VA ICS/LAMA/LABA, may benefit from PRN JUANCARLOS, followed by non-VA Pulmonology, uses oxygen at night only * DM - on alogliptin, last A1c 5.7%; metformin discontinued given A1c well WNL in the setting of advanced age, comorbidities, and fall risk, last Podiatry f/u 01/12/24, last Optometry f/u 03/24/24 - no retinopathy [...] - hx of tremor 6. Adherence Concerns: no concerns at this time * [facility] RN pre-fills meds 7. Health Maintenance: > Immunizations: [place] is due for the following immunizations per chart review and CDC recommendations: * COVID-19 - received a dose of the [id number] formulation on 10/08/23; due for a booster dose - Per Oct 2023 CDC update, adults ages 65 years and older are now recommended to receive an additional updated 8921-9235 COVID-19 vaccine dose in an effort to restore protection that has waned. Adults 65 years and older are disproportionately impacted by COVID-19, with more than half of COVID-19 hospitalizations during June 2023 to August 2023 occurring in this age group. Guidance suggests the booster dose be received at least four months after the previous 2022- 2023 COVID-19 vaccination. * PCV20 (shared decision making) * received PCV13 on 08/13/17 * received PPSV23 in November 2003 > Tobacco/EtOH: * Ongoing counseling to quit > Bladder/Bowel: * Inquire about incontinence and severity biannually. > Bone Health: * last vit D WNL on supplementation, hx of deficiency in Dec 2021 * last Ca from Aug 2023 WNL, not on supplementation > Aspirin: * on low-dose aspirin, hx of ASCVD 8. Patient has at least 1 refill remaining on all chronic VA Rxs. 9. Continue to review quarterly. Recommendations: - Would consider discontinuation of alogliptin to reduce pill burden given last A1c of 5.7% with less stringent A1c goal in the setting of advanced age, comorbidities, and fall risk. - Per chart review, had not been taking torsemide as it makes him urinate too much, but has recently been allowing [facility] RN to prefill meds. Please clarify how this medication is being prefilled, if at all. - Andrés's Rx for polyethylene glycol recently . Please assess whether he needs a new order for constipation, and enter if appropriate. - Of note, andrés is due for an additional COVID-19 vaccine starting given older age (please see additional details re: CDC update in #7 - Health Maintenance section). The details of this review were shared with the IDT in order to assist in creating a care plan designed to provide services focused on the health and well being of the patient. Time Spent: 60 min /esthela/ JOSE DE JESUS [facility]TG[facility] Clinical Pharmacist Practitioner Signed: 04/05/2024 16:10 Receipt Acknowledged By: 04/08/2024 13:48 /esthela/ GILES FUENTES [facility] NURSE PRACTITIONER 04/05/2024 20:16 /esthela/ Adalgisa Pina RN [facility] supervisor shop 04/05/2024 ADDENDUM STATUS: COMPLETED Andrés is taking Torsemide 20mg daily for the past few months. Andrés is not taking miralax or colace. [place] had EKG done due to concerns of this parts data writer at last RN visit, increase in heart rate, irreg rhythm. Holter monitor ordered for 04/04 by . Andrés had PET scan last week ordered by Urology for increase in PSA, results show prostate cancer localized to the area where his prostate used to be, he had prostatectomy years ago. It has not spread. Plan is to monitor the area, no chemo/radiation planned at this time. Urology notes and cardiology notes have been received for Andrés's records. Alogliptin was originally ordered by community PCP . This parts data writer can review ?of discontinuing the medication at next visit. /esthela/ Adalgisa Pina RN [facility] supervisor shop Signed: 04/05/2024 20:22 Receipt Acknowledged By: 04/06/2024 08:01 /raleigh MOTNGOMERY [facility] Clinical Pharmacist Practitioner 04/07/2024 15:32 /esthela/ GILES FUENTES [facility] NURSE PRACTITIONER 04/07/2024 ADDENDUM STATUS: COMPLETED Would advise Mr. Lemus to d/c alogliptin. In the past, he has been resistant to getting rid of meds for his diabetes despite being well under a1c goal. I can d/c but wondering if he is still getting from his outside PCP? /esthela/ GILES FUENTES [facility] NURSE PRACTITIONER Signed: 04/07/2024 15:35 Receipt Acknowledged By: 04/08/2024 08:58 /esthela/ JOSE DE JESUS [facility] Clinical Pharmacist Practitioner 05/12/2024 ADDENDUM STATUS: COMPLETED [place] had received notification that his alogliptin is being changed to sitagliptin, see pharmacy note from 04/28. This parts data writer reviewed [facility] Pharmacy note from 04/04 indicating it would be reasonable to stop alogliptin. Last A1C 5.20 December 2023. Is it ok to stop the alogliptin? and avoid starting sitagliptin. The sitagliptin cannot be mixed with his other medications in his pill boxes which would make it difficult for [place]. /esthela/ Adalgisa Pina RN [facility] supervisor shop Signed: 05/12/2024 12:30 Receipt Acknowledged By: 05/12/2024 15:05 /esthela/ GILES FUENTES [facility] NURSE PRACTITIONER 05/12/2024 12:43 /esthela/ JOSE DE JESUS [facility]TG[facility] Clinical Pharmacist Practitioner [facility] [place] [facility] [place] [facility] May 12, 2024 12:24 PM ADDENDUM: LOCAL TITLE: Addendum STANDARD TITLE: ADDENDUM DATE OF NOTE: MAY 12, 2024@12:24:33 ENTRY DATE: MAY 12, 2024@12:24:36 AUTHOR: ADALGISA PINA EXP COSIGNER: URGENCY: STATUS: COMPLETED [place] had received notification that his alogliptin is being changed to sitagliptin, see pharmacy note from 04/28. This parts data writer reviewed [facility] Pharmacy note from 04/04 indicating it would be reasonable to stop alogliptin. Last A1C 5.20 December 2023. Is it ok to stop the alogliptin? and avoid starting sitagliptin. The sitagliptin cannot be mixed with his other medications in his pill boxes which would make it difficult for . /esthela/ Adalgisa Pina RN [facility] supervisor shop Signed: 05/12/2024 12:30 Receipt Acknowledged By: 05/12/2024 15:05 /raleigh FUENTES [facility] NURSE PRACTITIONER 05/12/2024 12:43 /es/ JOSE DE JESUS [facility] Clinical Pharmacist Practitioner --- Original Document --- 04/04/24 [facility] PHARMACY MEDICATION REVIEW: Leonel Lemus is a 88 year-old WHITE MALE. PMH (per problem list/chart [...] TWICE ACTIVE DAILY FOR HIGH BLOOD PRESSURE * NEW 8) CHOLECALCIF 25MCG (D3-1,000UNIT) TAB TAKE ONE [...] TABLET BY MOUTH ONCE ACTIVE DAILY * not currently taking? Active Non-VA Medications Status 1) Non-VA FLUTICASONE/UMECLID/VILANT (TRELEGY 200) ACTIVE INHL,ORAL BY MOUTH 2) Non-VA OXYGEN MISCELLANEOUS 2 LITERS VIA NC AT NIGHT ACTIVE DIRECTED NEEDED THE ABOVE MEDICATIONS WERE REVIEWED FOR: ADR, potential incompatibilities, compliance, duplication of therapy, and indications on problem list Other Rx/OTC/Herbals: polyethylene glycol (exp) High Alert Meds: alogliptin Look Alike/Sound Alike Meds: acetaminophen, atorvastatin, carvedilol Duplication of Therapy: timolol maleate (eye drops and eye gel) Excessive Duration: none Vitals: ======= Ht: 70 in [177.8 cm] (08/23/2019 10:24) Wt: 197.6 lb [89.63 kg] (03/24/2024 11:00) BMI: 28.4 BP: 118/70 (03/24/2024 11:00) HR: 94 (03/24/2024 11:00) Pain: 0 (03/24/2024 11:00) Labs: ===== SERUM Na K BUN SCr [...] g/dL (12/24/23) ASSESSMENT: In the last 90 days - No falls/hospitalizations/infec tions noted - Per the 12/18/23 [facility] RN, non-VA provider started andrés on low-dose carvedilol given elevated HRs. Andrés has not been taking torsemide as it makes him urinate too much. - Andrés sustained a fall ~01/06/24 (please see #3 below for additional details). - Per the 01/22/24 [facility] RN note, andrés agreeable to [facility] RN doing prefills. 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 - Andrés was seen by [facility] on 01/29/24. PSA significantly increased. PET scan ordered. INTERVENTIONS/SUGGESTIONS: 1. Patient's medications were reviewed for [...] risk of hypokalemia; last K WNL * amlodipine/torsemide/epleren one/losartan/carvedilol: concurrent use may increase risk of hypotension; [...] CCB, max dose ARB, aldosterone antagonist, beta cassia (recently added), and loop diuretic; BPs reasonably well-controlled with HRs in 70s-90s; not taking torsemide recently as it causes him to urinate too much * COPD - on non-VA ICS/LAMA/LABA, may benefit from PRN JUANCARLOS, followed by non-VA Pulmonology, uses oxygen at night only * DM - on alogliptin, last A1c 5.7%; metformin discontinued given A1c well WNL in the setting of advanced age, comorbidities, and fall risk, last Podiatry f/u 01/12/24, last Optometry f/u 03/24/24 - no retinopathy [...] - hx of tremor 6. Adherence Concerns: no concerns at this time * [facility] RN pre-fills meds 7. Health Maintenance: > Immunizations: [place] is due for the following immunizations per chart review and CDC recommendations: * COVID-19 - received a dose of the [id number] formulation on 10/08/23; due for a booster dose - Per Oct 2023 CDC update, adults ages 65 years and older are now recommended to receive an additional updated 5737-9419 COVID-19 vaccine dose in an effort to restore protection that has waned. Adults 65 years and older are disproportionately impacted by COVID-19, with more than half of COVID-19 hospitalizations during June 2023 to August 2023 occurring in this age group. Guidance suggests the booster dose be received at least four months after the previous 2022- 2023 COVID-19 vaccination. * PCV20 (shared decision making) * received PCV13 on 08/13/17 * received PPSV23 in November 2003 > Tobacco/EtOH: * Ongoing counseling to quit > Bladder/Bowel: * Inquire about incontinence and severity biannually. > Bone Health: * last vit D WNL on supplementation, hx of deficiency in Dec 2021 * last Ca from Aug 2023 WNL, not on supplementation > Aspirin: * on low-dose aspirin, hx of ASCVD 8. Patient has at least 1 refill remaining on all chronic [facility] Rxs. 9. Continue to review quarterly. Recommendations: - Would consider discontinuation of alogliptin to reduce pill burden given last A1c of 5.7% with less stringent A1c goal in the setting of advanced age, comorbidities, and fall risk. - Per chart review, andrés had not been taking torsemide as it makes him urinate too much, but has recently been allowing [facility] RN to prefill meds. Please clarify how this medication is being prefilled, if at all. - [place]'s Rx for polyethylene glycol recently . Please assess whether he needs a new order for constipation, and enter if appropriate. - Of note, is due for an additional COVID-19 vaccine starting given older age (please see additional details re: CDC update in #7 - Health Maintenance section). The details of this review were shared with the IDT in order to assist in creating a care plan designed to provide services focused on the health and well being of the patient. Time Spent: 60 min /esthela/ JOSE DE JESUS [facility]TG[facility] Clinical Pharmacist Practitioner Signed: 04/05/2024 16:10 Receipt Acknowledged By: 04/08/2024 13:48 /esthela/ GILES FUENTES [facility] NURSE PRACTITIONER 04/05/2024 20:16 /esthela/ Adalgisa Pina RN [facility] supervisor shop 04/05/2024 ADDENDUM STATUS: COMPLETED [place] is taking Torsemide 20mg daily for the past few months. is not taking miralax or colace. had EKG done due to concerns of this parts data writer at last RN visit, increase in heart rate, irreg rhythm. Holter monitor ordered for 04/04 by . had PET scan last week ordered by Urology for increase in PSA, results show prostate cancer localized to the area where his prostate used to be, he had prostatectomy years ago. It has not spread. Plan is to monitor the area, no chemo/radiation planned at this time. Urology notes and cardiology notes have been received for 's records. Alogliptin was originally ordered by community PCP . This parts data writer can review ?of discontinuing the medication at next visit. /esthela/ Adalgisa Pina RN [facility] supervisor shop Signed: 04/05/2024 20:22 Receipt Acknowledged By: 04/06/2024 08:01 /esthela/ JOSE DE JESUS [facility] Clinical Pharmacist Practitioner 04/07/2024 15:32 /esthela/ GILES FUENTES [facility] NURSE PRACTITIONER 04/07/2024 ADDENDUM STATUS: COMPLETED Would advise Mr. Lemus to d/c alogliptin. In the past, he has been resistant to getting rid of meds for his diabetes despite being well under a1c goal. I can d/c but wondering if he is still getting from his outside PCP? /esthela/ GILES FUENTES [facility] NURSE PRACTITIONER Signed: 04/07/2024 15:35 Receipt Acknowledged By: 04/08/2024 08:58 /esthela/ JOSE DE JESUS MONTG[facility] Clinical Pharmacist Practitioner 05/12/2024 ADDENDUM STATUS: COMPLETED Appropriate to stop DPP-4 inhibitor (sitagliptin) to decrease pill burden as 's A1c is well within goal. This parts data writer to discontinue Rx at this time. /esthela/ JOSE DE JESUS [facility] Clinical Pharmacist Practitioner Signed: 05/12/2024 12:46 Receipt Acknowledged By: 05/12/2024 15:05 /esthela/ GILES FUENTES [facility] NURSE PRACTITIONER * AWAITING SIGNATURE * ADALGISA PINA GRETCHEN [place] [facility] [place] [facility] Apr 07, 2024 03:33 PM ADDENDUM: LOCAL TITLE: Addendum STANDARD TITLE: ADDENDUM DATE OF NOTE: APR 07, 2024@15:33:11 ENTRY DATE: APR 07, 2024@15:33:12 AUTHOR: GILES FUENTES COSIGNER: URGENCY: STATUS: COMPLETED Would advise Mr. Lemus to d/c alogliptin. In the past, he has been resistant to getting rid of meds for his diabetes despite being well under a1c goal. I can d/c but wondering if he is still getting from his outside PCP? /esthela/ GILES FUENTES [facility] NURSE PRACTITIONER Signed: 04/07/2024 15:35 Receipt Acknowledged By: 04/08/2024 08:58 /esthela/ JOSE DE JESUS [facility]TG[facility] Clinical Pharmacist Practitioner --- Original Document --- 04/04/24 [facility] PHARMACY MEDICATION REVIEW: Leonel Lemus is a 88 year-old WHITE MALE. PMH (per problem list/chart [...] TWICE ACTIVE DAILY FOR HIGH BLOOD PRESSURE * NEW 8) CHOLECALCIF 25MCG (D3-1,000UNIT) TAB TAKE ONE [...] TABLET BY MOUTH ONCE ACTIVE DAILY * not currently taking? Active Non-VA Medications Status 1) Non-VA FLUTICASONE/UMECLID/VILANT (TRELEGY 200) ACTIVE INHL,ORAL BY MOUTH 2) Non-VA OXYGEN MISCELLANEOUS 2 LITERS VIA NC AT NIGHT ACTIVE DIRECTED NEEDED THE ABOVE MEDICATIONS WERE REVIEWED FOR: ADR, potential incompatibilities, compliance, duplication of therapy, and indications on problem list Other Rx/OTC/Herbals: polyethylene glycol (exp) High Alert Meds: alogliptin Look Alike/Sound Alike Meds: acetaminophen, atorvastatin, carvedilol Duplication of Therapy: timolol maleate (eye drops and eye gel) Excessive Duration: none Vitals: ======= Ht: 70 in [177.8 cm] (08/23/2019 10:24) Wt: 197.6 lb [89.63 kg] (03/24/2024 11:00) BMI: 28.4 BP: 118/70 (03/24/2024 11:00) HR: 94 (03/24/2024 11:00) Pain: 0 (03/24/2024 11:00) Labs: ===== SERUM Na K BUN SCr [...] g/dL (12/24/23) ASSESSMENT: In the last 90 days - No falls/hospitalizations/infec tions noted - Per the 12/18/23 [facility] RN, non-VA provider started andrés on low-dose carvedilol given elevated HRs. Andrés has not been taking torsemide as it makes him urinate too much. - [place] sustained a fall ~01/06/24 (please see #3 below for additional details). - Per the 01/22/24 [facility] RN note, andrés agreeable to [facility] RN doing prefills. 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 - Andrés was seen by [facility] on 01/29/24. PSA significantly increased. PET scan ordered. INTERVENTIONS/SUGGESTIONS: 1. Patient's medications were reviewed for [...] risk of hypokalemia; last K WNL * amlodipine/torsemide/epleren one/losartan/carvedilol: concurrent use may increase risk of hypotension; [...] CCB, max dose ARB, aldosterone antagonist, beta cassia (recently added), and loop diuretic; BPs reasonably well-controlled with HRs in 70s-90s; not taking torsemide recently as it causes him to urinate too much * COPD - on non-VA ICS/LAMA/LABA, may benefit from PRN JUANCARLOS, followed by non-VA Pulmonology, uses oxygen at night only * DM - on alogliptin, last A1c 5.7%; metformin discontinued given A1c well WNL in the setting of advanced age, comorbidities, and fall risk, last Podiatry f/u 01/12/24, last Optometry f/u 03/24/24 - no retinopathy [...] - hx of tremor 6. Adherence Concerns: no concerns at this time * [facility] RN pre-fills meds 7. Health Maintenance: > Immunizations: Paterson is due for the following immunizations per chart review and CDC recommendations: * COVID-19 - received a dose of the [id number] formulation on 10/08/23; due for a booster dose - Per Oct 2023 CDC update, adults ages 65 years and older are now recommended to receive an additional updated 3918-2944 COVID-19 vaccine dose in an effort to restore protection that has waned. Adults 65 years and older are disproportionately impacted by COVID-19, with more than half of COVID-19 hospitalizations during June 2023 to August 2023 occurring in this age group. Guidance suggests the booster dose be received at least four months after the previous 2022- 2023 COVID-19 vaccination. * PCV20 (shared decision making) * received PCV13 on 08/13/17 * received PPSV23 in November 2003 > Tobacco/EtOH: * Ongoing counseling to quit > Bladder/Bowel: * Inquire about incontinence and severity biannually. > Bone Health: * last vit D WNL on supplementation, hx of deficiency in Dec 2021 * last Ca from Aug 2023 WNL, not on supplementation > Aspirin: * on low-dose aspirin, hx of ASCVD 8. Patient has at least 1 refill remaining on all chronic [facility] Rxs. 9. Continue to review quarterly. Recommendations: - Would consider discontinuation of alogliptin to reduce pill burden given last A1c of 5.7% with less stringent A1c goal in the setting of advanced age, comorbidities, and fall risk. - Per chart review, andrés had not been taking torsemide as it makes him urinate too much, but has recently been allowing [facility] RN to prefill meds. Please clarify how this medication is being prefilled, if at all. - Andrés's Rx for polyethylene glycol recently . Please assess whether he needs a new order for constipation, and enter if appropriate. - Of note, andrés is due for an additional COVID-19 vaccine starting given older age (please see additional details re: CDC update in #7 - Health Maintenance section). The details of this review were shared with the IDT in order to assist in creating a care plan designed to provide services focused on the health and well being of the patient. Time Spent: 60 min /esthela/ [facility] Clinical Pharmacist Practitioner Signed: 04/05/2024 16:10 Receipt Acknowledged By: * AWAITING SIGNATURE * GILES FUENTES 04/05/2024 20:16 /esthela/ Adalgisa Pina RN [facility] supervisor shop 04/05/2024 ADDENDUM STATUS: COMPLETED is taking Torsemide 20mg daily for the past few months. is not taking miralax or colace. had EKG done due to concerns of this parts data writer at last RN visit, increase in heart rate, irreg rhythm. Holter monitor ordered for 04/04 by . Paterson had PET scan last week ordered by Urology for increase in PSA, results show prostate cancer localized to the area where his prostate used to be, he had prostatectomy years ago. It has not spread. Plan is to monitor the area, no chemo/radiation planned at this time. Urology notes and cardiology notes have been received for Paterson's records. Alogliptin was originally ordered by community PCP . This parts data writer can review ?of discontinuing the medication at next visit. /es/ Adalgisa Pina RN [facility] supervisor shop Signed: 04/05/2024 20:22 Receipt Acknowledged By: 04/06/2024 08:01 /es/ [facility] Clinical Pharmacist Practitioner 04/07/2024 15:32 /es/ GILES FUENTES [facility] NURSE PRACTITIONER GILES FUENTES [facility] Apr 05, 2024 08:16 PM ADDENDUM: LOCAL TITLE: Addendum STANDARD TITLE: ADDENDUM DATE OF NOTE: APR 05, 2024@20:16:07 ENTRY DATE: APR 05, 2024@20:16:09 AUTHOR: ADALGISA PINA EXP COSIGNER: URGENCY: STATUS: COMPLETED Paterson is taking Torsemide 20mg daily for the past few months. is not taking miralax or colace. Paterson had EKG done due to concerns of this parts data writer at last RN visit, increase in heart rate, irreg rhythm. Holter monitor ordered for 04/04 by . had PET scan last week ordered by Urology for increase in PSA, results show prostate cancer localized to the area where his prostate used to be, he had prostatectomy years ago. It has not spread. Plan is to monitor the area, no chemo/radiation planned at this time. Urology notes and cardiology notes have been received for Paterson's records. Alogliptin was originally ordered by community PCP . This parts data writer can review ?of discontinuing the medication at next visit. /es/ Adalgisa Pina RN [facility] supervisor shop Signed: 04/05/2024 20:22 Receipt Acknowledged By: 04/06/2024 08:01 /es/ [facility] Clinical Pharmacist Practitioner 04/07/2024 15:32 /es/ GILES FUENTES [facility] NURSE PRACTITIONER --- Original Document --- 04/04/24 [facility]ARM[facility]Y MEDICATION REVIEW: Leonel Lemus is a 88 year-old WHITE MALE. PMH (per problem list/chart [...] TWICE ACTIVE DAILY FOR HIGH BLOOD PRESSURE * NEW 8) CHOLECALCIF 25MCG (D3-1,000UNIT) TAB TAKE ONE [...] TABLET BY MOUTH ONCE ACTIVE DAILY * not currently taking? Active Non-VA Medications Status 1) Non-VA FLUTICASONE/UMECLID/VILANT (TRELEGY 200) ACTIVE INHL,ORAL BY MOUTH 2) Non-VA OXYGEN MISCELLANEOUS 2 LITERS VIA NC AT NIGHT ACTIVE DIRECTED NEEDED THE ABOVE MEDICATIONS WERE REVIEWED FOR: ADR, potential incompatibilities, compliance, duplication of therapy, and indications on problem list Other Rx/OTC/Herbals: polyethylene glycol (exp) High Alert Meds: alogliptin Look Alike/Sound Alike Meds: acetaminophen, atorvastatin, carvedilol Duplication of Therapy: timolol maleate (eye drops and eye gel) Excessive Duration: none Vitals: ======= Ht: 70 in [177.8 cm] (08/23/2019 10:24) Wt: 197.6 lb [89.63 kg] (03/24/2024 11:00) BMI: 28.4 BP: 118/70 (03/24/2024 11:00) HR: 94 (03/24/2024 11:00) Pain: 0 (03/24/2024 11:00) Labs: ===== SERUM Na K BUN SCr [...] g/dL (12/24/23) ASSESSMENT: In the last 90 days - No falls/hospitalizations/infec tions noted - Per the 12/18/23 [facility] RN, non-VA provider started andrés on low-dose carvedilol given elevated HRs. Andrés has not been taking torsemide as it makes him urinate too much. - sustained a fall ~01/06/24 (please see #3 below for additional details). - Per the 01/22/24 [facility] RN note, agreeable to [facility] RN doing prefills. 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 - Paterson was seen by [facility] on 01/29/24. PSA significantly increased. PET scan ordered. INTERVENTIONS/SUGGESTIONS: 1. Patient's medications were reviewed for [...] risk of hypokalemia; last K WNL * amlodipine/torsemide/epleren one/losartan/carvedilol: concurrent use may increase risk of hypotension; [...] CCB, max dose ARB, aldosterone antagonist, beta cassia (recently added), and loop diuretic; BPs reasonably well-controlled with HRs in 70s-90s; not taking torsemide recently as it causes him to urinate too much * COPD - on non-VA ICS/LAMA/LABA, may benefit from PRN JUANCARLOS, followed by non-VA Pulmonology, uses oxygen at night only * DM - on alogliptin, last A1c 5.7%; metformin discontinued given A1c well WNL in the setting of advanced age, comorbidities, and fall risk, last Podiatry f/u 01/12/24, last Optometry f/u 03/24/24 - no retinopathy [...] - hx of tremor 6. Adherence Concerns: no concerns at this time * [facility] RN pre-fills meds 7. Health Maintenance: > Immunizations: Andrés is due for the following immunizations per chart review and CDC recommendations: * COVID-19 - received a dose of the [id number] formulation on 10/08/23; due for a booster dose - Per Oct 2023 CDC update, adults ages 65 years and older are now recommended to receive an additional updated 7904-9578 COVID-19 vaccine dose in an effort to restore protection that has waned. Adults 65 years and older are disproportionately impacted by COVID-19, with more than half of COVID-19 hospitalizations during June 2023 to August 2023 occurring in this age group. Guidance suggests the booster dose be received at least four months after the previous 2022- 2023 COVID-19 vaccination. * PCV20 (shared decision making) * received PCV13 on 08/13/17 * received PPSV23 in November 2003 > Tobacco/EtOH: * Ongoing counseling to quit > Bladder/Bowel: * Inquire about incontinence and severity biannually. > Bone Health: * last vit D WNL on supplementation, hx of deficiency in Dec 2021 * last Ca from Aug 2023 WNL, not on supplementation > Aspirin: * on low-dose aspirin, hx of ASCVD 8. Patient has at least 1 refill remaining on all chronic [facility] Rxs. 9. Continue to review quarterly. Recommendations: - Would consider discontinuation of alogliptin to reduce pill burden given last A1c of 5.7% with less stringent A1c goal in the setting of advanced age, comorbidities, and fall risk. - Per chart review, had not been taking torsemide as it makes him urinate too much, but has recently been allowing [facility] RN to prefill meds. Please clarify how this medication is being prefilled, if at all. - 's Rx for polyethylene glycol recently . Please assess whether he needs a new order for constipation, and enter if appropriate. - Of note, is due for an additional COVID-19 vaccine starting given older age (please see additional details re: CDC update in #7 - Health Maintenance section). The details of this review were shared with the IDT in order to assist in creating a care plan designed to provide services focused on the health and well being of the patient. Time Spent: 60 min /es/ [facility] Clinical Pharmacist Practitioner Signed: 04/05/2024 16:10 Receipt Acknowledged By: * AWAITING SIGNATURE * GILES FUENTES 04/05/2024 20:16 /es/ Adalgisa Pina RN [facility] supervisor shop ADALGISA PINA [place] [facility] Apr 04, 2024 02:17 PM [facility] MEDICATION MGT NOTE: LOCAL TITLE: [facility]ARM[facility] MEDICATION REVIEW STANDARD TITLE: [facility] MEDICATION MGT NOTE DATE OF NOTE: APR 04, 2024@14:17 ENTRY DATE: APR 04, 2024@14:17:32 AUTHOR: JOSE DE JESUS MONTG[facility] COSIGNER: URGENCY: STATUS: COMPLETED [facility] PHARM[facility] MEDICATION REVIEW Has ADDENDA Leonel Lemus is a 88 year-old WHITE MALE. PMH (per problem list/chart [...] TWICE ACTIVE DAILY FOR HIGH BLOOD PRESSURE * NEW 8) CHOLECALCIF 25MCG (D3-1,000UNIT) TAB TAKE ONE [...] TABLET BY MOUTH ONCE ACTIVE DAILY * not currently taking? Active Non-VA Medications Status 1) Non-VA FLUTICASONE/UMECLID/VILANT (TRELEGY 200) ACTIVE INHL,ORAL BY MOUTH 2) Non-VA OXYGEN MISCELLANEOUS 2 LITERS VIA NC AT NIGHT ACTIVE DIRECTED NEEDED THE ABOVE MEDICATIONS WERE REVIEWED FOR: ADR, potential incompatibilities, compliance, duplication of therapy, and indications on problem list Other Rx/OTC/Herbals: polyethylene glycol (exp) High Alert Meds: alogliptin Look Alike/Sound Alike Meds: acetaminophen, atorvastatin, carvedilol Duplication of Therapy: timolol maleate (eye drops and eye gel) Excessive Duration: none Vitals: ======= Ht: 70 in [177.8 cm] (08/23/2019 10:24) Wt: 197.6 lb [89.63 kg] (03/24/2024 11:00) BMI: 28.4 BP: 118/70 (03/24/2024 11:00) HR: 94 (03/24/2024 11:00) Pain: 0 (03/24/2024 11:00) Labs: ===== SERUM Na K BUN SCr [...] g/dL (12/24/23) ASSESSMENT: In the last 90 days - No falls/hospitalizations/infec tions noted - Per the 12/18/23 [facility] RN, non-VA provider started on low-dose carvedilol given elevated HRs. has not been taking torsemide as it makes him urinate too much. - sustained a fall ~01/06/24 (please see #3 below for additional details). - Per the 01/22/24 [facility] RN note, andrés agreeable to [facility] RN doing prefills. 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 - Andrés was seen by [facility] on 01/29/24. PSA significantly increased. PET scan ordered. INTERVENTIONS/SUGGESTIONS: 1. Patient's medications were reviewed for [...] risk of hypokalemia; last K WNL * amlodipine/torsemide/epleren one/losartan/carvedilol: concurrent use may increase risk of hypotension; [...] CCB, max dose ARB, aldosterone antagonist, beta cassia (recently added), and loop diuretic; BPs reasonably well-controlled with HRs in 70s-90s; not taking torsemide recently as it causes him to urinate too much * COPD - on non-VA ICS/LAMA/LABA, may benefit from PRN JUANCARLOS, followed by non-VA Pulmonology, uses oxygen at night only * DM - on alogliptin, last A1c 5.7%; metformin discontinued given A1c well WNL in the setting of advanced age, comorbidities, and fall risk, last Podiatry f/u 01/12/24, last Optometry f/u 03/24/24 - no retinopathy [...] - hx of tremor 6. Adherence Concerns: no concerns at this time * [facility] RN pre-fills meds 7. Health Maintenance: > Immunizations: [place] is due for the following immunizations per chart review and CDC recommendations: * COVID-19 - received a dose of the [id number] formulation on 10/08/23; due for a booster dose - Per Oct 2023 CDC update, adults ages 65 years and older are now recommended to receive an additional updated 3056-3639 COVID-19 vaccine dose in an effort to restore protection that has waned. Adults 65 years and older are disproportionately impacted by COVID-19, with more than half of COVID-19 hospitalizations during June 2023 to August 2023 occurring in this age group. Guidance suggests the booster dose be received at least four months after the previous 2022- 2023 COVID-19 vaccination. * PCV20 (shared decision making) * received PCV13 on 08/13/17 * received PPSV23 in November 2003 > Tobacco/EtOH: * Ongoing counseling to quit > Bladder/Bowel: * Inquire about incontinence and severity biannually. > Bone Health: * last vit D WNL on supplementation, hx of deficiency in Dec 2021 * last Ca from Aug 2023 WNL, not on supplementation > Aspirin: * on low-dose aspirin, hx of ASCVD 8. Patient has at least 1 refill remaining on all chronic [facility] Rxs. 9. Continue to review quarterly. Recommendations: - Would consider discontinuation of alogliptin to reduce pill burden given last A1c of 5.7% with less stringent A1c goal in the setting of advanced age, comorbidities, and fall risk. - Per chart review, andrés had not been taking torsemide as it makes him urinate too much, but has recently been allowing [facility] RN to prefill meds. Please clarify how this medication is being prefilled, if at all. - Andrés's Rx for polyethylene glycol recently . Please assess whether he needs a new order for constipation, and enter if appropriate. - Of note, andrés is due for an additional COVID-19 vaccine starting given older age (please see additional details re: CDC update in #7 - Health Maintenance section). The details of this review were shared with the IDT in order to assist in creating a care plan designed to provide services focused on the health and well being of the patient. Time Spent: 60 min /es/ [facility] Clinical Pharmacist Practitioner Signed: 04/05/2024 16:10 Receipt Acknowledged By: 04/08/2024 13:48 /es/ GILES FUENTES [facility] NURSE PRACTITIONER 04/05/2024 20:16 /es/ Adalgisa Pina RN [facility] supervisor shop 04/05/2024 ADDENDUM STATUS: COMPLETED Andrés is taking Torsemide 20mg daily for the past few months. Andrés is not taking miralax or colace. Andrés had EKG done due to concerns of this parts data writer at last RN visit, increase in heart rate, irreg rhythm. Holter monitor ordered for 04/04 by . Andrés had PET scan last week ordered by Urology for increase in PSA, results show prostate cancer localized to the area where his prostate used to be, he had prostatectomy years ago. It has not spread. Plan is to monitor the area, no chemo/radiation planned at this time. Urology notes and cardiology notes have been received for Andrés's records. Alogliptin was originally ordered by community PCP . This parts data writer can review ?of discontinuing the medication at next visit. /esthela/ Adalgisa Pina RN [facility] supervisor shop Signed: 04/05/2024 20:22 Receipt Acknowledged By: 04/06/2024 08:01 /esthela/ [facility] Clinical Pharmacist Practitioner 04/07/2024 15:32 /esthela/ GILES FUENTES [facility] NURSE PRACTITIONER 04/07/2024 ADDENDUM STATUS: COMPLETED Would advise Mr. Lemus to d/c alogliptin. In the past, he has been resistant to getting rid of meds for his diabetes despite being well under a1c goal. I can d/c but wondering if he is still getting from his outside PCP? /esthela/ GILES FUENTES [facility] NURSE PRACTITIONER Signed: 04/07/2024 15:35 Receipt Acknowledged By: 04/08/2024 08:58 /esthela/ [facility] Clinical Pharmacist Practitioner 05/12/2024 ADDENDUM STATUS: COMPLETED Paterson had received notification that his alogliptin is being changed to sitagliptin, see pharmacy note from 04/28. This parts data writer reviewed [facility] Pharmacy note from 04/04 indicating it would be reasonable to stop alogliptin. Last A1C 5.20 December 2023. Is it ok to stop the alogliptin? and avoid starting sitagliptin. The sitagliptin cannot be mixed with his other medications in his pill boxes which would make it difficult for Paterson. /esthela/ Adalgisa Pina RN [facility] supervisor shop Signed: 05/12/2024 12:30 Receipt Acknowledged By: * AWAITING SIGNATURE * GILES FUENTES 05/12/2024 12:43 /esthela/ [facility] Clinical Pharmacist Practitioner 05/12/2024 ADDENDUM STATUS: COMPLETED Appropriate to stop DPP-4 inhibitor (sitagliptin) to decrease pill burden as 's A1c is well within goal. This parts data writer to discontinue Rx at this time. /esthela/ [facility] Clinical Pharmacist Practitioner Signed: 05/12/2024 12:46 Receipt Acknowledged By: * AWAITING SIGNATURE * GILES FUENTES * AWAITING SIGNATURE * ADALGISA PINA SARAH J [place] CNTRL [facility]
--- OUTSIDE RECORDS SUMMARY | 2024-11-16 10:47 | XMS_ITS | Encounter Summary ---
Author Name [facility] Organization [facility] ([place]) Address [address] [place] [id number] Care Team Providers Care Network Support Name Role Phone GILES FUENTES Primary Care [...] CAREMARK PRESCRIPT ION GEHA Sep 14, 2014 [id number] FANY LEMUS ON PATIENT CAREMARK PRESCRIPT ION SUSI AL EMPLO [place] HEA Sep 14, 2014 [id number] FANY LEMUS ON PATIENT CAREMARK PRESCRIPT ION Sep 14, 2014 [id number] FANY LEMUS ON PATIENT GEHA (SECONDARY ) PREFERRED PROVIDER ORGANIZAT ION (PPO) HIGH OPTIO N MCR A&B Sep 14, 2005 [id number] ALLAN,MYR ON PATIENT GEHA (SECONDARY ) PREFERRED PROVIDER ORGANIZAT ION (PPO) GEHA CONNE CTION DENT Sep 14, 2005 [id number] ALLAN,MYR ON PATIENT GEHA FEHB PREFERRED PROVIDER ORGANIZAT ION (PPO) SUSI AL GOV Sep 14, 2005 [id number] ALTH [id number] ALLAN,MYR ON PATIENT GEHA FEHB PREFERRED PROVIDER ORGANIZAT ION (PPO) SUSI AL* Sep 14, 1989 [id number] ALTH [id number] ALLAN,MYR ON PATIENT GEHA-[facility]AV [facility] GEHA HIGH OPTIO N Sep 14, 2021 [id number] ALLAN,MYR ON PATIENT MEDICARE (WNR) MEDICARE (M) PART A May 15, 2000 PART A [id number] ALLAN,MYR ON PATIENT MEDICARE (WNR) MEDICARE (M) PART B May 15, 2000 PART B [id number] ALLAN,MYR ON PATIENT MEDICARE (WNR) MEDICARE (M) PART A May 15, 2000 PART A [id number] ALLAN,MYR ON PATIENT MEDICARE (WNR) MEDICARE (M) PART B May 15, 2000 PART B [id number] ALLAN,MYR ON PATIENT MEDICARE (WNR) MEDICARE (M) PART B May 15, 2000 PART B [id number] [phone] ALLAN,MYR ON PATIENT MEDICARE (WNR) MEDICARE (M) PART A May 15, 2000 PART A [id number] ALLAN,MYR ON PATIENT MEDICARE (WNR) MEDICARE (M) PART A May 15, 2000 PART A [id number] ALLAN,MYR ON PATIENT MEDICARE (WNR) MEDICARE (M) PART B May 15, 2000 PART B [id number] FANY LEMUS ON PATIENT Selected Encounter This section includes the information on record at [place] for the Encounter. Date/Time Encounter Type Encounter Description Reason Pro vider Source IHE Encounter Template Text not used by [place] Advance Directives: All historical and current Section Date Range: From patient's date of to the date document was created. This section includes ALL of a patient's completed or amended [place] Advance and Rescinded Directives. The entries below indicate that a directive exists for the patient, but an actual copy is not included with this document. The data comes from all [place] facilities. Date Advance Directives Provider Source Nov 11, 2016 ADVANCE DIRECTIVE ELROY CHÁVEZ [place] [facility]TRL [facility] Jul 08, 2006 ADVANCE DIRECTIVE [facility]
--- OUTSIDE RECORDS SUMMARY | 2024-11-16 10:47 | XMS_ITS | Encounter Summary ---
Author Name [facility] Organization [facility] Address [address] [place] [id number] Care Team Providers Care Mechanical Facilities Technician Name Role Phone GILES FUENTES Primary [...] CAREMARK PRESCRIPT ION GEHA Sep 14, 2014 [id number] [phone] FANY LEMUS ON PATIENT CAREMARK PRESCRIPT ION SUSI ATKINSON Sep 14, 2014 [phone] FANY LEMUS ON PATIENT CAREMARK PRESCRIPT ION Sep 14, 2014 [phone] ALLAN,MYR ON PATIENT GEHA (SECONDARY ) PREFERRED PROVIDER ORGANIZAT ION (PPO) HIGH OPTIO N [facility] A&B Sep 14, 2005 [id number] ALLAN,MYR ON PATIENT GEHA (SECONDARY ) PREFERRED PROVIDER ORGANIZAT ION (PPO) GEHA CONNE CTION DENT Sep 14, 2005 [id number] ALLAN,MYR ON PATIENT GEHA FEHB PREFERRED PROVIDER ORGANIZAT ION (PPO) SUSI AL GOV Sep 14, 2005 [id number] ALTH [id number] [phone] ALLAN,MYR ON PATIENT GEHA FEHB PREFERRED PROVIDER ORGANIZAT ION (PPO) SUSI AL* Sep 14, 1989 [id number] ALTH [id number] ALLAN,MYR ON PATIENT GEHA-[facility] GEHA HIGH OPTIO N Sep 14, 2021 [id number] ALLAN,MYR ON PATIENT MEDICARE (WNR) MEDICARE (M) PART A May 15, 2000 PART A [id number] ALLAN,MYR ON PATIENT MEDICARE (WNR) MEDICARE (M) PART B May 15, 2000 PART B [id number] ALLAN,MYR ON PATIENT MEDICARE (WNR) MEDICARE (M) PART A May 15, 2000 PART A [id number] ALLAN,MYR ON PATIENT MEDICARE (WNR) MEDICARE (M) PART B May 15, 2000 PART B [id number] ALLAN,MYR ON PATIENT MEDICARE (WNR) MEDICARE (M) PART B May 15, 2000 PART B [id number] ALLAN,MYR ON PATIENT MEDICARE (WNR) MEDICARE (M) PART A May 15, 2000 PART A [id number] ALLAN,MYR ON PATIENT MEDICARE (WNR) MEDICARE (M) PART A May 15, 2000 PART A [id number] [phone] FANY LEMUS ON PATIENT MEDICARE (WNR) MEDICARE (M) PART B May 15, 2000 PART B [id number] FANY LEMUS ON PATIENT Selected Encounter This section includes the information on record at [place] for the Encounter. Date/Time Encounter Type Encounter Description Reason Provider Source Apr 21, 2024 02:00 PM MEASURE BLOOD OXYGEN LEVEL [facility] Nursing (RN / LP) ICD-10-CM I25.9 Chronic ischemic heart disease, unspecified ADALGISA MCNAIR Verito Encounter Template Text not used by [place] Assessments - Encounter Diagnoses This section includes the primary and secondary diagnoses documented for the Encounter. Date/Time Primary/Secondary Diagnosis Diagnosis Name Provider Source Apr 22, 2024 12:16 AM PRIMARY Chronic ischemic heart disease, unspecified FRANSICO MCNAIR [place] [facility] Apr 22, 2024 12:16 AM SECONDARY Carcinoma in situ of prostate FRANSICO MCNAIR [place] [facility] [place] [facility] Apr 22, 2024 12:16 AM SECONDARY Essential (primary) hypertension FRANSICO MCNAIR [place] [facility] [place] [facility] Apr 22, 2024 12:16 AM SECONDARY Other specified chronic obstructive pulmonary disease [facility] Plan of Treatment: Future Appointments (+ 6 [...] 01:00 PM AMBULATORY - REHAB MEDICIN E [place] [facility] [place] [facility] Jun 03, 2024 11:30 AM AMBULATORY - MEDICINE [facility] Sep 26, 2024 10:00 AM AMBULATORY - REHAB MEDICIN E [facility] [place] [facility] Oct 21, 2024 11:30 AM AMBULATORY - MEDICINE [facility] Vital Signs: All taken on the encounter date This section contains inpatient and outpatient Vital Signs collected on the date of the Encounter. Date/Time Temperature Pulse Blood Pressure Respiratory Rate SP02 Pain Height Weight Body Mass Index Source Apr 21, 2024 02:00 PM 98.2 88 128/60 18 97 0 [place] [facility] [place] [facility] Social History: Smoking Status (Most [...] Facil ity Sep 02, 2023 05:30 PM [place]-TOBACCO QUIT 15 YRS OR MORE [facility] Tobacco Use History This section includes a history of the smoking, or tobacco-related health factors, that were collected on or before the date of the Encounter. The data comes from the [place] facility where the Encounter took place. Date/Time Smoking Status/Tobacco Use Comment F acility Sep 02, 2023 05:30 PM VA-TOBACCO QUIT 15 YRS OR MORE [facility] [place] [facility] Apr 24, 2022 01:00 PM VA-TOBACCO FORMER USER [place] [facility] [place] [facility] Apr 24, 2022 01:00 PM VA-TOBACCO QUIT 15 YRS OR MORE [facility] [place] [facility] Dec 05, 2021 02:00 PM VA-TOBACCO USE DEC LINED TO ANSWER [facility] [place] [facility] Nov 24, 2021 04:05 PM VA-TOBACCO USE DEC LINED TO ANSWER [facility] [place] [facility] Sep 20, 2020 08:40 AM VA-TOBACCO NEVER USED [facility] [place] [facility] Advance Directives: All historical and current Section [...] ADVANCE DIRECTIVE ELROY CHÁVEZ [place] [facility] [place] [facility] Jul 08, 2006 AD[facility]ANCE [facility]IVE [facility] Encounter Notes: All associated encounter notes This section contains the clinical notes associated to the Encounter. Date/Time Encounter Note(s) Provider Source May 12, 2024 01:10 PM ADDENDUM: LOCAL TITLE: Addendum STANDARD TITLE: ADDENDUM DATE OF NOTE: MAY 12, 2024@13:10:48 ENTRY DATE: MAY 12, 2024@13:10:50 AUTHOR: ADALGISA MCNAIRIGNER: URGENCY: STATUS: COMPLETED needs renewal of Torsemide, he continues to take 20mg daily. Thank you! /es/ Adalgisa Mcnair RN [facility] grader green meat Signed: 05/12/2024 13:13 Receipt Acknowledged By: 05/12/2024 15:09 /es/ GILES FUENTES [facility] NURSE PRACTITIONER --- Original Document --- 04/21/24 [facility] RN PROGRESS NOTE: Nursing Progress Note [...] in patient's home at time of visit. Rogelio identified by: Facial Recognition Length of visit in home:45 MIN Problem addressed for this visit:MED COMPLIANCE, BLINDNESS, SLEEP APNEA NURSING SUMMARY:VISIT MADE TO ROGELIO AT HOME FOR ASSESSMENT, MEDPREFLL. AND SOLOMON PRESENT. ALERT, ORIENTED TALKATIVE. HE HAS BEEN DOING WELL. NO FALLS. NO ER VISITS. ROGELIO WAS SUPPOSED TO HAVE A CIRCUMCISION DONE ON 04/29, IT IS BEING RESCHEDULED DUE TO NEEDING OXYGEN THEREFORE THE SURGERY NEEDS TO BE DONE AT THE HOSPITAL. WAITING FOR NEW DATE. ROGELIO HAS PRE- OP INSTRUCTIONS, TOLD TO HOLD ASA FOR 5 DAYS. SOLOMON CAN REMOVE FROM PILL BOX ONCE THEY HAVE THE DATE. THE CIRCUMCISION WAS ROGELIO'S IDEA, HE FEELS THE AREA GETS IRRITATED, INFECTED AND PAINFUL AT TIMES AND THAT THIS PROCEDURE WOULD IMPROVE THESE ISSUES. ROGELIO BEING TREATED BY [facility]. ROGELIO HAD NO OTHER MD APPT'S SINCE LAST VISIT. CONTINUES TO GO OUT WEEKLY WITH HIS BUDDIES AND WENT TO THE [facility] YESTERDAY WITH SOLOMON FOR DONUTS AND COFFEE. AND SOLOMON APPRECIATE THE ASSISTANCE WITH THE MEDICATIONS THIS HAS TAKEN A STRESS OF THEIR SHOULDERS KEEPING UP WITH THE REFILLS ETC. MEDS PREFILLED FOR 3 WEEKS. Blood Pressure: 128/60 (04/21/2024 14:00) Pulse: 88 (04/21/2024 14:00) Respiration: 18 (04/21/2024 14:00) Temperature: 98.2 F [36.8 C] (04/21/2024 14:00) Pain Score: 0 (04/21/2024 14:00) EXAMINATION: Lungs:CLEAR Edema:TRACE PEDAL HR:RATE IN 85-95 RANGE, RECENT ECHO/EKG WNL. MONITORING BP,PULSE 3-4X A WEEK. Bowel/Bladder:BM'S WNL. URINE CLEAR.URINARY FREQUENCY. RECENT DX OF PROSTATE CA, BEING MONITORED, NO TREATMENT OR INTERVENTION AT THIS TIME. Skin:INTACT SKIN. Home Safety HOME OXYGEN: [facility] has home oxygen at a rate of 2l delivered via [place] PRN during the day, at night continuous. Oxygen orders are on active medication list:yes NAME and telephone number of O2 Company:[employer] [phone] Home Oxygen Safety Checklist Issue YES/NO --- Res 01/29/2015 Does patient smoke No Comments: Does anyone in household smoke Yes Comments: SMOKES OUTSIDE Evidence of smoking material, i.e. ticketer, cigarettes Yes Comments: Cooks or heats with [...] ONGOING COMPLEX MEDICAL NEEDS. BENEFITS FROM ONGOING [facility] INTERDISCIPLINARY MGT. AND MEDICAL OVERSIGHT. AND CAREGIVER ARE INCLUDED IN DECISION MAKING. EDUCATION PROVIDED REGARDING MEDICATIONS, DISEASE MGT. WILL BE FREE FROM FALLS, INFECTIONS AND HOSPITALIZATIONS IN THE NEXT 30 DAYS. Patient verbalizes understanding to above and will call with any concerns or changes in condition. For emergent care call [phone]. Plan for next visit: MAY 21 assessment, med prefill. /esthela/ Adalgisa Mcnair RN [facility] grader green meat Signed: 04/22/2024 00:16 04/22/2024 ADDENDUM STATUS: COMPLETED Home Telehealth (CCHT) Referral: Patient not a candidate for CCHT Program at this time. Reason: [facility] High Risk for HYPOglycemia: Not reported. Comment: DID NOT REPORT ANY LOW BLOOD SUGARS Hypoglycemic screen clinical decision: COVID-19 Immunization: Refused Moderna Monovalent COVID-19 vaccine Immunization: COVID-19 (MODERNA), MRNA, LNP-S, PF, 50 MCG/0.5 ML (AGES 12+ YEARS) Refusal Reason: PATIENT DECISION Patient refuses all immunization(s) in the COVID-19 group Comment: WOULD LIKE TO Wait until the new moderna booster is available. Date Documented: 04/22/24 00:20 RHS Screen: RHS Screen Environmental Check Screening was not completed at this time due to: Another adult present /es/ Adalgisa Mcnair RN [facility] grader green meat Signed: 04/22/2024 00:21 ADALGISA MCNAIR [facility] [place] [facility] Apr 21, 2024 02:00 PM [facility] NURSING NOTE: LOCAL TITLE: [facility] RN PROGRESS NOTE STANDARD TITLE: [facility] NURSING NOTE DATE OF NOTE: APR 21, 2024@14:00 ENTRY DATE: APR 21, 2024@23:18:37 AUTHOR: ADALGISA MCNAIR EXP COSIGNER: URGENCY: STATUS: [...] Facial Recognition Length of visit in home:45 MIN Problem addressed for this visit:MED COMPLIANCE, BLINDNESS, SLEEP APNEA NURSING SUMMARY:VISIT MADE TO ROGELIO AT HOME FOR ASSESSMENT, MEDPREFLL. AND SOLOMON PRESENT. ALERT, ORIENTED TALKATIVE. HE HAS BEEN DOING WELL. NO FALLS. NO ER VISITS. ROGELIO WAS SUPPOSED TO HAVE A CIRCUMCISION DONE ON 04/29, IT IS BEING RESCHEDULED DUE TO NEEDING OXYGEN THEREFORE THE SURGERY NEEDS TO BE DONE AT THE HOSPITAL. WAITING FOR NEW DATE. ROGELIO HAS PRE- OP INSTRUCTIONS, TOLD TO HOLD ASA FOR 5 DAYS. SOLOMON CAN REMOVE FROM PILL BOX ONCE THEY HAVE THE DATE. THE CIRCUMCISION WAS 'S IDEA, HE FEELS THE AREA GETS IRRITATED, INFECTED AND PAINFUL AT TIMES AND THAT THIS PROCEDURE WOULD IMPROVE THESE ISSUES. ROGELIO BEING TREATED BY [facility]. ROGELIO HAD NO OTHER MD APPT'S SINCE LAST VISIT. CONTINUES TO GO OUT WEEKLY WITH HIS BUDDIES AND WENT TO THE [facility] YESTERDAY WITH SOLOMON FOR DONUTS AND COFFEE. ROGELIO AND SOLOMON APPRECIATE THE ASSISTANCE WITH THE MEDICATIONS THIS HAS TAKEN A STRESS OF THEIR SHOULDERS KEEPING UP WITH THE REFILLS ETC. MEDS PREFILLED FOR 3 WEEKS. Blood Pressure: 128/60 (04/21/2024 14:00) Pulse: 88 (04/21/2024 14:00) Respiration: 18 (04/21/2024 14:00) Temperature: 98.2 F [36.8 C] (04/21/2024 14:00) Pain Score: 0 (04/21/2024 14:00) EXAMINATION: Lungs:CLEAR Edema:TRACE PEDAL HR:RATE IN 85-95 RANGE, RECENT ECHO/EKG WNL. MONITORING BP,PULSE 3-4X A WEEK. Bowel/Bladder:BM'S WNL. URINE CLEAR.URINARY FREQUENCY. RECENT DX OF PROSTATE CA, BEING MONITORED, NO TREATMENT OR INTERVENTION AT THIS TIME. Skin:INTACT SKIN. Home Safety HOME OXYGEN: [facility] has home oxygen at a rate of 2l delivered via [place] PRN during the day, at night continuous. Oxygen orders are on active medication list:yes NAME and telephone number of O2 Company:[employer] [phone] Home Oxygen Safety Checklist Issue YES/NO --- Res 01/29/2015 Does patient smoke No Comments: Does anyone in household smoke Yes Comments: SMOKES OUTSIDE Evidence of smoking material, i.e. ticketer, cigarettes Yes Comments: Cooks or heats with [...] ONGOING COMPLEX MEDICAL NEEDS. BENEFITS FROM ONGOING [facility] INTERDISCIPLINARY MGT. AND MEDICAL OVERSIGHT. AND CAREGIVER ARE INCLUDED IN DECISION MAKING. EDUCATION PROVIDED REGARDING MEDICATIONS, DISEASE MGT. WILL BE FREE FROM FALLS, INFECTIONS AND HOSPITALIZATIONS IN THE NEXT 30 DAYS. Patient verbalizes understanding to above and will call with any concerns or changes in condition. For emergent care call 911. Plan for next visit: MAY 21 assessment, med prefill. /esthela/ Adalgisa Mcnair RN HB grader green meat Signed: 04/22/2024 00:16 04/22/2024 ADDENDUM STATUS: COMPLETED Home Telehealth (CCHT) Referral: Patient not a candidate for CCHT Program at this time. Reason: IS NOT INTERESTED IN CCHT. High Risk for HYPOglycemia: Not reported. Comment: DID NOT REPORT ANY LOW BLOOD SUGARS Hypoglycemic screen clinical decision: COVID-19 Immunization: Refused Moderna Monovalent COVID-19 vaccine Immunization: COVID-19 (MODERNA), MRNA, LNP-S, PF, 50 MCG/0.5 ML (AGES 12+ YEARS) Refusal Reason: PATIENT DECISION Patient refuses all immunization(s) in the COVID-19 group Comment: WOULD LIKE TO Wait until the new moderna booster is available. Date Documented: 04/22/24 00:20 RHS Screen: RHS Screen Environmental Check Screening was not completed at this time due to: Another adult present /esthela/ Adalgisa Mcnair RN [facility] grader green meat Signed: 04/22/2024 00:21 05/12/2024 ADDENDUM STATUS: COMPLETED needs renewal of Torsemide, he continues to take 20mg daily. Thank you! /raleigh Mcnair RN [facility] grader green meat Signed: 05/12/2024 13:13 Receipt Acknowledged By: * AWAITING SIGNATURE * GILES FUENTES [facility]
== END 2024-11-16 10:10 | disposition home or self-care (01) ==
PROVIDERS: PCP Internal Medicine; Visit Provider Hospitalist
DX: J98.6 Disorders of diaphragm (principal); J96.11 Chronic respiratory failure with hypoxia; J41.0 Simple chronic bronchitis; J92.0 Pleural plaque with presence of asbestos; A15.9 Respiratory tuberculosis unspecified; E04.1 Nontoxic single thyroid nodule
CPT/HCPCS: 99214

== ENCOUNTER → 2024-11-16 09:30 | Outpatient (BNVA) | payer MEDICARE, SELFPAY | PROVIDERS: PCP Internal Medicine; Visit Provider Hospitalist | DX: J41.0 Simple chronic bronchitis (principal); J98.6 Disorders of diaphragm; J96.11 Chronic respiratory failure with hypoxia; J92.0 Pleural plaque with presence of asbestos; A15.9 Respiratory tuberculosis unspecified; E04.1 Nontoxic single thyroid nodule; Z99.81 Dependence on supplemental oxygen | CPT/HCPCS: 99212 ==

== ENCOUNTER 2024-12-19 09:39 | Outpatient (REF) | payer MEDICARE, SELFPAY ==
--- NOTE | ~2024-12-19 | US_ITS ---
EXAMINATION: US THYROID HISTORY: E04.1 - Nontoxic single thyroid nodule TECHNIQUE: Real-time grayscale ultrasound imaging was performed and images were reviewed. COMPARISON: Correlation is made with an unenhanced chest CT dated 09/30/2024. FINDINGS: SIZE: The right thyroid lobe measures 6.0 x 3.1 x 2.4 cm. The left thyroid lobe measures 3.9 x 2.0 x 2.1 cm. The isthmus measures 6 mm. FLOW: Flow to the gland is normal. ECHOGENICITY: The echotexture of the gland is homogeneous. NODULES: There is a single nodule on the right corresponding to the abnormality seen on CT. Imaging characteristics are as follows: Nodule #: 1 Location: Interpolar region of the right thyroid lobe measuring 2.8 x 2.1 x 2.6 cm. The lesion is predominantly cystic with a small mural nodule. Shape: Wider than tall (0 points) Margins: Smooth (0 points) Echotexture: Hypoechoic (2 points) Composition: Mixed (1 point) Calcifications: None (0 points) Total points: 3 TIRADS: TR3: Mildly suspicious. US/US thyroid IMPRESSION: Mildly suspicious, predominantly cystic nodule in the right thyroid lobe corresponding to the lesion noted on CT. Follow-up is recommended. ACR TI-RADS Guidelines TR1 (0 points): Benign, No follow-up or biopsy required TR2 (2 points): Not Suspicious, No biopsy or follow up indicated TR3 (3 points): Mildly Suspicious, FNA if >= 2.5 cm, Follow if >= 1.5 cm TR4 (4-6 points): Moderately Suspicious, FNA if >= 1.5 cm, Follow if >= 1.0 cm TR5 (>=7 points): Highly Suspicious, FNA if >= 1.0 cm, Follow if >= 0.5 cm Electronically signed by: Mario Capps MD 12/19/2024 10:55 AM EDT
--- OUTSIDE RECORDS SUMMARY | 2024-12-19 11:00 | XMS_ITS | Encounter Summary ---
Author Organization [facility] Address [address] [place] [address] Care Team Providers Care Cracking And Fanning Machine Operator Name Role Phone Troy Butcher Primary Care Provider [phone] Encounter Details Date Type Department Care Team (Latest Contact Info) Description 09/22/2024 Lab Requisition [facility] - Main Lab [address] [facility] [place] [id number] Troy Butcher PA [address] [facility] [address] [place] [address] Chronic obstructive pulmonary disease, unspecified (CMS/HCC); Type 2 diabetes mellitus without complications ([facility]/HCC) Social History Tobacco Use Types Packs/Day Years [...] as of this encounter Plan of Treatment Upcoming Encounters Date Type Department Care Team (Late st Contact Info) Description 02/27/2025 1:30 PM EDT Ancillary Procedure [facility] [address] [place] [address] documented as of this encounter Procedures Procedure [...] * SST tube (09/22/2024 12:00 AM EST) Pathologist [facility] Extra Tube Hold for add-ons. 09/22/2024 8:01 PM EST [facility] Comment:Auto resulted. Blood Venous blood specimen / Unknown 09/22/2024 09/22/2024 6:24 PM EST us Troy GAR LAB BLOOD ORDERABLES Final Res ult [facility] [address] [place] [address], [place] [phone] * (ABNORMAL) CBC auto differential (09/22/2024 12:00 AM EST) [facility] WBC 8.9 4.8 - 10.8 K/mcL LAB HEMETOLOGY METHOD 09/22/2024 7:40 PM [facility] RBC 4.70 4.50 - 5.50 M/mcL LAB HEMETOLOGY METHOD 09/22/2024 7:40 PM [facility] Hemoglobin 14.7 13.5 - 17.5 g/dL LAB HEMETOLOGY METHOD 09/22/2024 7:40 PM [facility] Hematocrit 45.8 42.0 - 54.0 % LAB HEMETOLOGY METHOD 09/22/2024 7:40 PM [facility] MCV 97.9 79.0 - 98.0 FL LAB HEMETOLOGY METHOD 09/22/2024 7:40 PM [facility] MCH 31.4 27.0 - 32.0 pcg LAB HEMETOLOGY METHOD 09/22/2024 7:40 PM [facility] MCHC 32.1 32.0 - 37.0 g/dL LAB HEMETOLOGY METHOD 09/22/2024 7:40 PM [facility] RDW 13.3 11.0 - 15.0 % LAB HEMETOLOGY METHOD 09/22/2024 7:40 PM [facility] Platelets 151 130 - 400 K/mcL LAB HEMETOLOGY METHOD 09/22/2024 7:40 PM [facility] MPV 12.4(H) 7.0 - 11.0 FL LAB HEMETOLOGY METHOD 09/22/2024 7:40 PM [facility] NRBC 0.0 <1.0 % LAB HEMETOLOGY METHOD 09/22/2024 7:40 PM [facility] NRBC Absolute 0.00 <0.10 K/mcL LAB HEMETOLOGY METHOD 09/22/2024 7:40 PM [facility] Neutrophils Relative 65.2 % LAB HEMETOLOGY METHOD 09/22/2024 7:40 PM [facility] Lymphocytes Relative 23.1 % LAB HEMETOLOGY METHOD 09/22/2024 7:40 PM [facility] Monocytes Relative 9.5 % LAB HEMETOLOGY METHOD 09/22/2024 7:40 PM [facility] Eosinophils Relative 1.4 % LAB HEMETOLOGY METHOD 09/22/2024 7:40 PM [facility] Basophils Relative 0.6 % LAB HEMETOLOGY METHOD 09/22/2024 7:40 PM [facility] Immature Granulocytes Relative 0.2 % LAB HEMETOLOGY METHOD 09/22/2024 7:40 PM [facility] Neutrophils Absolute 5.78 1.50 - 7.00 K/mcL LAB HEMETOLOGY METHOD 09/22/2024 7:40 PM [facility] Lymphocytes Absolute 2.05 1.00 - 5.00 K/mcL LAB HEMETOLOGY METHOD 09/22/2024 7:40 PM EST [facility] Monocytes Absolute 0.84 0.20 - 1.00 K/[facility] LAB HEMETOLOGY METHOD 09/22/2024 7:40 PM EST [facility] Eosinophils Absolute 0.12 0.00 - 0.50 K/[facility] LAB HEMETOLOGY METHOD 09/22/2024 7:40 PM EST [facility] Basophils Absolute 0.05 0.00 - 0.20 K/[facility] LAB HEMETOLOGY METHOD 09/22/2024 7:40 PM EST [facility] Immature Granulocytes Absolute 0.02 0.00 - 0.03 K/[facility] HEMETOLOGY METHOD 09/22/2024 7:40 PM EST [facility] Blood Venous blood specimen / Unknown 09/22/2024 09/22/2024 6:24 PM EST Troy GAR LAB BLOOD ORDERABLES Final Res ult [facility] [address] [place] [address], [place] [phone] * (ABNORMAL) Prostate specific antigen screen (09/22/2024 12:00 AM EST) PSA 27.54(H) 0.00 - 4.00 ng/mL LAB CHEMISTRY METHOD 09/22/2024 8:21 PM EST [facility] Blood Venous blood specimen / Unknown 09/22/2024 09/22/2024 6:24 PM EST Narrative [facility] - 09/22/2024 8:21 PM EST The Siemens Advia Centaur Chemiluminescent Immunoassay is used. Results obtained with different assay methods or kits cannot be used interchangeably. Results cannot be interpreted as absolute evidence of the presence or absence of malignant disease. Troy GAR LAB BLOOD ORDERABLES Final Res ult Performing Organization Address [facility]/ZIP Co de Phone Number [facility] [address] [place] [address], [place] [phone] * Magnesium (09/22/2024 12:00 AM EST) Magnesium 2.1 1.9 - 2.6 mg/dL LAB CHEMISTRY METHOD 09/22/2024 8:12 PM EST [facility] Blood Venous blood specimen / Unknown 09/22/2024 09/22/2024 6:24 PM EST us Troy GAR LAB BLOOD ORDERABLES Final Res ult Performing Organization Address [facility] Co de Phone Number [facility] [address] [place] [address], [place] [phone] * B-type natriuretic peptide (09/22/2024 12:00 AM EST) BNP 17 <=100 pcg/mL LAB CHEMISTRY METHOD 09/22/2024 8:32 PM EST [facility] Blood Venous blood specimen / Unknown 09/22/2024 09/22/2024 6:24 PM EST us Troy GAR LAB BLOOD ORDERABLES Final Res ult Performing Organization Address [facility]/ZIP Co de Phone Number [facility] [address] [place] [address], [place] [phone] * Vitamin B12 (09/22/2024 12:00 AM EST) Vitamin B-12 560 250 - 900 pcg/mL LAB CHEMISTRY METHOD 09/22/2024 8:34 PM EST [facility] Blood Venous blood specimen / Unknown 09/22/2024 09/22/2024 6:24 PM EST us Troy GAR LAB BLOOD ORDERABLES Final Res ult Performing Organization Address [facility]/ZIP Co de Phone Number [facility] [address] [place] [address], [place] [phone] * LDL cholesterol, direct (09/22/2024 12:00 AM EST) LDL Direct 59 <=100 mg/dL LAB CHEMISTRY METHOD 09/22/2024 8:12 PM EST [facility] Blood Venous blood specimen / Unknown 09/22/2024 09/22/2024 6:24 PM EST Troy GAR LAB BLOOD ORDERABLES Final Res ult Performing Organization Address [facility] Co de Phone Number [facility] [address] [place] [address], [place] [phone] * Vitamin D 25 hydroxy (09/22/2024 12:00 AM EST) Vit D, 25-Hydroxy 30.1 30.0 - 80.0 ng/mL LAB CHEMISTRY METHOD 09/22/2024 8:21 PM EST [facility] Blood Venous blood specimen / Unknown 09/22/2024 09/22/2024 6:24 PM EST us Troy GAR LAB BLOOD ORDERABLES Final Res ult Performing Organization Address [facility]/ZIP Co de Phone Number [facility] [address] [place] [address], [place] [phone] * Lipid panel with reflex to direct LDL (09/22/2024 12:00 AM EST) Cholesterol 122 0 - 200 mg/dL LAB CHEMISTRY METHOD 09/22/2024 8:34 PM EST [facility] Triglycerides 90 0 - 150 mg/dL LAB CHEMISTRY METHOD 09/22/2024 8:34 PM EST [facility] HDL 56 >=40 mg/dL LAB CHEMISTRY METHOD 09/22/2024 8:34 PM [facility] LDL Calculated 48 0 - 100 mg/dL LAB CHEMISTRY METHOD 09/22/2024 8:34 PM [facility] VLDL Cholesterol Jaya 18 mg/dL LAB CHEMISTRY METHOD 09/22/2024 8:34 PM [facility] Non HDL Chol. (LDL+VLDL) 66 <145 mg/dL LAB CHEMISTRY METHOD 09/22/2024 8:34 PM [facility] Chol/HDL Ratio 2.2 0.0 - 4.4 LAB CHEMISTRY METHOD 09/22/2024 8:34 PM [facility] Blood Venous blood specimen / Unknown 09/22/2024 09/22/2024 6:24 PM EST Troy GAR LAB BLOOD ORDERABLES Final Res ult [facility] [address] [place] [address], [place] [phone] * (ABNORMAL) Comprehensive metabolic panel (09/22/2024 12:00 AM EST) Sodium 141 133 - 145 mmol/L LAB CHEMISTRY METHOD 09/22/2024 8:12 PM [facility] Potassium 4.3 3.5 - 5.5 mmol/L LAB CHEMISTRY METHOD 09/22/2024 8:12 PM [facility] Chloride 111(H) 96 - 110 mmol/L LAB CHEMISTRY METHOD 09/22/2024 8:12 PM [facility] CO2 26 21 - 32 mmol/L LAB CHEMISTRY METHOD 09/22/2024 8:12 PM [facility] Anion Gap 4 3 - 11 LAB CHEMISTRY METHOD 09/22/2024 8:12 PM [facility] Glucose 101(H) 70 - 100 mg/dL LAB CHEMISTRY METHOD 09/22/2024 8:12 PM [facility] BUN 20 5 - 25 mg/dL LAB CHEMISTRY METHOD 09/22/2024 8:12 PM [facility] Creatinine 0.93 0.70 - 1.30 mg/dL LAB CHEMISTRY METHOD 09/22/2024 8:12 PM [facility] eGFR 78 >=60 mL/min/1. 73m2 LAB CHEMISTRY METHOD 09/22/2024 8:12 PM [facility] Comment:Calculation based on the??Chronic Kidney Disease Epidemiology Collaboration (CKD-EPI) equation refit??without adjustment for race. BUN/Creatinine Ratio 21.5 LAB CHEMISTRY METHOD 09/22/2024 8:12 PM [facility] Calcium 9.2 8.5 - 10.5 mg/dL LAB CHEMISTRY METHOD 09/22/2024 8:12 PM [facility] AST (SGOT) 22 10 - 42 unit/L LAB CHEMISTRY METHOD 09/22/2024 8:12 PM [facility] ALT (SGPT) 36 10 - 60 unit/L LAB CHEMISTRY METHOD 09/22/2024 8:12 PM [facility] Alkaline Phosphatase 160(H) 42 - 121 unit/L LAB CHEMISTRY METHOD 09/22/2024 8:12 PM [facility] Total Protein 7.1 6.0 - 8.0 g/dL LAB CHEMISTRY METHOD 09/22/2024 8:12 PM [facility] Albumin 3.7 3.2 - 5.0 g/dL LAB CHEMISTRY METHOD 09/22/2024 8:12 PM [facility] Total Bilirubin 0.7 0.0 - 1.4 mg/dL LAB CHEMISTRY METHOD 09/22/2024 8:12 PM [facility] Blood Venous blood specimen / Unknown 09/22/2024 09/22/2024 6:24 PM EST us Troy GAR LAB BLOOD ORDERABLES Final Res ult [facility] [address] [place] [address], documented in this encounter Visit Diagnoses Diagnosis Chronic obstructive pulmonary disease, unspecified Type 2 diabetes mellitus without complications documented in this encounter Care Teams Cracking And Fanning Machine Operator Relationship Specialty Start Date End Date Troy Butcher PA [address] [address] PCP - General Primary Care 12/09/24 documented as of this encounter
--- OUTSIDE RECORDS SUMMARY | 2024-12-19 11:01 | XMS_ITS | Clinical Summary ---
Author Organization [address] Address [address] [place] [phone] Phone Care Team Providers Care Socially Responsible Investment Adviser Name Role Phone Troy Butcher Primary Care Provider [phone] Allergies Active Allergy Reactions Criticality Noted Date Comments Sulfa (Sulfonamide Antibiotics) Low 05/30/2023 Other Reaction(s): NAUSEATED. Medications alogliptin (NESINA) 25 mg tablet Take 1 tablet (25 mg total) by mouth 1 (one) time each day. Active atorvastatin (LIPITOR) 80 mg tablet Take 1 tablet (80 mg total) by mouth at bedtime. Active losartan (COZAAR) 100 mg tablet Take 1 tablet (100 mg total) by mouth 1 (one) time each day. Active cholecalciferol, vitamin D3, (VITAMIN D3 ORAL) Take by mouth 1 (one) time each day. Active amLODIPine (NORVASC) 10 mg tablet Take 1 tablet (10 mg total) by mouth 1 (one) time each day. Active eplerenone (INSPRA) 25 mg tablet Take 1 tablet (25 mg total) by mouth 1 (one) time each day. Active carvediloL (COREG) 3.125 mg tablet Take 1 tablet (3.125 mg total) by mouth 2 (two) times a day with meals. Active aspirin 81 mg EC tablet Take 1 tablet (81 mg total) by mouth 1 (one) time each day. Active torsemide (DEMADEX) 20 mg tablet Take 1 tablet (20 mg total) by mouth 1 (one) time each day. 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 Randolph Campuzano at [facility] for L eye prob Obesity 12/09/2024 Assessment & Plan (12/09/2024 3:55 PM EDT): The patient has had a weight gain of approximately 14 pounds within the last 5 to 6 months; he does admit that over the holidays he was not eating well. This does not appear to be related to heart failure as he otherwise appears euvolemic. Approaches towards weight loss are discussed, including burning more calories than one takes in by portion control and regular exercise with an emphasis on duration rather than intensity. Osteoarthritis 12/09/2024 Tremor 12/09/2024 Overview (12/09/2024): Nov 19, 2022 Entered By: TYLER NICOLE Comment: Benign familiar tremor on primodone per neuro seen 07/05 f/u 02/03 Type 2 diabetes mellitus 12/09/2024 Unspecified abnormalities of gait and mobility 0 12/09/2024 Aortic root dilation 12/09/2024 Assessment & Plan (12/09/2024 3:55 PM EDT): We will update an echocardiogram for surveillance and readdress as indicated. Blood pressure is favorable on recheck as above. Orders: Transthoracic echocardiogram (TTE) complete with PRN contrast, bubble, strain, and 3D order panel; Future YEH (dyspnea on exertion) 12/09/2024 Assessment & Plan (12/09/2024 3:55 PM EDT): As above, the patient reports shortness of breath but only with significant exertion; this may be multifactorial in nature related to advanced age, deconditioning, obesity, and underlying pulmonary and cardiac conditions. For completeness, we are reevaluating with an echocardiogram as above, although the patient does not feel as though his dyspnea on exertion is overly concerning. Will continue to readdress this as indicated. Orders: Transthoracic echocardiogram (TTE) complete with PRN contrast, bubble, strain, and 3D order panel; Future Coronary artery disease invo lving ot[place] coronary artery of [place] heart without angina pectoris 12/09/2024 Assessment & Plan (12/09/2024 3:55 PM EDT): The patient presents today reporting shortness of breath with exertion only when he feels he is overexerted himself and which resolves quickly after only a brief rest; within his normal day-to-day activities and reduced functional capacity due to his vision issues, he offers no symptoms concerning for underlying ischemia. He has not had any chest pain which she reports is his previous anginal symptom. As such, we will not make any changes to his current guideline directed medical therapies; continue carvedilol, atorvastatin, and daily ASA in addition to amlodipine as an antianginal. We are updating an echocardiogram as below; should there be any new wall motion abnormalities, we will readdress an ischemic workup. The patient was advised to seek emergent medical attention by calling 911 if they were to develop severe dyspnea, chest pain that did not resolve with rest, or if they were to faint. Hyperlipidemia 06/12/2022 Overview (12/09/2024): Last Assessment & Plan: Last lipid panel available to me is from 2019, LDL was 70 at that time. He tells me his PCP just [facility] and follows them. Continue statin. Assessment & Plan (12/09/2024 3:55 PM EDT): LDL goal for this patient who has a history of coronary artery disease as well as diabetes is less than 55; his most recent lipid panel completed September 2024 shows an LDL of 48 which is at goal. Continue atorvastatin 80 mg daily. Diastolic heart failure 06/12/2022 Overview (12/09/2024): Last Assessment & Plan: Appears euvolemic, has no ischemic or heart failure symptoms. Reviewed signs and symptoms of heart failure and educated regarding monitoring weight, diet, and fluid intake. If there is a weight gain of 3 pounds in one day or 5 pounds in a week please call our office or seek medical attention if necessary. Assessment & Plan (12/09/2024 3:55 PM EDT): As above, the patient reports shortness of breath with exertion but only when he is overexerted himself; he has only trace pretibial edema and otherwise appears euvolemic on exam. Within his normal day-to-day activities he denies any symptoms concerning for overt heart failure. Given his shortness of breath with significant exertion, we are updating an echocardiogram as his last one was completed in March 2023. In the interim, we will not make any changes to his GDMT for heart failure; continue beta-blockade, ARB, MRA, and torsemide. Recent labs are stable. We will await results of his echocardiogram and reevaluate this as indicated. I've asked the patient to call if they develop worsening symptoms of heart failure such as increased shortness of breath, new or worsening cough, increased swelling in the legs or ankles, or weight gain of more than 2 pounds in one day or 4 pounds in one week. Orders: Transthoracic echocardiogram (TTE) complete with PRN contrast, bubble, strain, and 3D order panel; Future S/P total knee replacement 10/09/2017 Macular degeneration 10/20/2016 Overview (12/09/2024): Legally blind Primary hypertension 10/20/2016 Overview (12/09/2024): Last Assessment & Plan: Controlled, continue Inspra, ARB, CCB, diuretic, BB Assessment & Plan (12/09/2024 3:55 PM EDT): Blood pressure was slightly elevated on initial check but improved on recheck today. He does have access to blood pressure cuff at home and I have asked him to check his blood pressure from time to time, approximately 1 to 2 hours after morning medications; his [facility] nurse comes once every 4 weeks and have asked him to review these readings with her. Should they be elevated, we will readdress his antihypertensive regimen as indicated. Otherwise, continue amlodipine, carvedilol, eplerenone, losartan, and torsemide. Renal function and electrolytes have been stable on most recent labs 09/2024. Encounters Date Type Department Care Team Description 12/09/2024 2:40 PM EDT Office Visit [facility] - [address] [facility] [address] [place] [id number] Brandi Keating NP Coronary artery disease involving ottawa coronary artery of ottawa heart without angina pectoris (Primary Dx); Chronic diastolic heart failure (CMS/HCC); YEH (dyspnea on exertion); Primary hypertension; Hyperlipidemia, unspecified hyperlipidemia type; Aortic root dilation (CMS/HCC); Class 1 obesity due to excess calories with serious comorbidity and body mass index (BMI) of 31.0 to 31.9 in adult 09/22/2024 Lab Requisition [facility] - [facility] Lab [address] [facility] [place] [id number] Troy Butcher PA Chronic obstructive pulmonary disease, [...] drink = 0.6 oz pur e alcohol) occasional Sex and Gender Information Value Date Recorded Sex Assigned at Not on file Legal Sex Male 7:45 AM EST Gender Identity Not on file Sexual Orientation Not on file Obstetrics History Last Filed Vital Signs Vital Sign Reading Time Taken Comments Blood Pressure 130/66 12/09/2024 3:20 PM EDT Pulse 55 12/09/2024 2:57 PM EDT Temperature - - Respiratory Rate - - Oxygen Saturation 91% 12/09/2024 2:57 PM EDT Inhaled Oxygen Concentration - - Weight 97.1 kg (214 lb) 12/09/2024 2:57 PM EDT Height 175.3 cm (5' 9 ) 12/09/2024 2:57 PM EDT Body Mass Index 31.6 12/09/2024 2:57 PM EDT Plan of Treatment Upcoming Encounters Date Type Department Care Team (Late st Contact Info) Description 02/27/2025 1:30 PM EDT Ancillary Procedure [facility] - [address] [place] [address] Health Maintenance Due Date Last Done Comments [...] Years Completed 07/03/2021, 08/13/2017, 11/13/2003 RSV Immunization Adult Patients Completed 07/30/2023 Influenza Vaccine Completed 06/01/2024, , [...] Res ult [facility] [address] [place] [address], * SST tube (09/22/2024 12:00 AM EST) Extra Tube Hold for add-ons. 09/22/2024 8:01 PM EST [facility] Comment:Auto resulted. Blood Venous blood specimen / Unknown 09/22/2024 09/22/2024 6:24 PM EST Troy GAR LAB BLOOD ORDERABLES Final Res ult [facility] [address] [place] [address], [place] [phone] * Lipid panel with reflex to direct LDL (09/22/2024 12:00 AM EST) Cholesterol 122 0 - 200 mg/dL LAB CHEMISTRY METHOD 09/22/2024 8:34 PM EST [facility] Triglycerides 90 0 - 150 mg/dL LAB CHEMISTRY METHOD 09/22/2024 8:34 PM EST [facility] HDL 56 >=40 mg/dL LAB CHEMISTRY METHOD 09/22/2024 8:34 PM EST [facility] LDL Calculated 48 0 - 100 mg/dL LAB CHEMISTRY METHOD 09/22/2024 8:34 PM EST [facility] VLDL Cholesterol Jaya 18 mg/dL LAB CHEMISTRY METHOD 09/22/2024 8:34 PM EST [facility] Non HDL Chol. (LDL+VLDL) 66 <145 mg/dL LAB CHEMISTRY METHOD 09/22/2024 8:34 PM EST [facility] Chol/HDL Ratio 2.2 0.0 - 4.4 LAB CHEMISTRY METHOD 09/22/2024 8:34 PM EST [facility] Blood Venous blood specimen / Unknown 09/22/2024 09/22/2024 6:24 PM EST Troy GAR LAB BLOOD ORDERABLES Final Res ult [facility] [address] [place] [address], [place] [phone] * (ABNORMAL) CBC auto differential (09/22/2024 12:00 AM EST) WBC 8.9 4.8 - 10.8 K/[facility] LAB HEMETOLOGY METHOD 09/22/2024 7:40 PM [facility] RBC 4.70 4.50 - 5.50 M/mcL LAB HEMETOLOGY METHOD 09/22/2024 7:40 PM [facility] Hemoglobin 14.7 13.5 - 17.5 g/dL LAB HEMETOLOGY METHOD 09/22/2024 7:40 PM [facility] Hematocrit 45.8 42.0 - 54.0 % LAB HEMETOLOGY METHOD 09/22/2024 7:40 PM [facility] MCV 97.9 79.0 - 98.0 FL LAB HEMETOLOGY METHOD 09/22/2024 7:40 PM [facility] MCH 31.4 27.0 - 32.0 pcg LAB HEMETOLOGY METHOD 09/22/2024 7:40 PM [facility] MCHC 32.1 32.0 - 37.0 g/dL LAB HEMETOLOGY METHOD 09/22/2024 7:40 PM [facility] RDW 13.3 11.0 - 15.0 % LAB HEMETOLOGY METHOD 09/22/2024 7:40 PM [facility] Platelets 151 130 - 400 K/[facility] LAB HEMETOLOGY METHOD 09/22/2024 7:40 PM [facility] MPV 12.4(H) 7.0 - 11.0 FL LAB HEMETOLOGY METHOD 09/22/2024 7:40 PM [facility] NRBC 0.0 <1.0 % LAB HEMETOLOGY METHOD 09/22/2024 7:40 PM [facility] NRBC Absolute 0.00 <0.10 K/mcL LAB HEMETOLOGY METHOD 09/22/2024 7:40 PM [facility] Neutrophils Relative 65.2 % LAB HEMETOLOGY METHOD 09/22/2024 7:40 PM [facility] Lymphocytes Relative 23.1 % LAB HEMETOLOGY METHOD 09/22/2024 7:40 PM [facility] Monocytes Relative 9.5 % LAB HEMETOLOGY METHOD 09/22/2024 7:40 PM [facility] Eosinophils Relative 1.4 % LAB HEMETOLOGY METHOD 09/22/2024 7:40 PM [facility] Basophils Relative 0.6 % LAB HEMETOLOGY METHOD 09/22/2024 7:40 PM [facility] Immature Granulocytes Relative 0.2 % LAB HEMETOLOGY METHOD 09/22/2024 7:40 PM [facility] Neutrophils Absolute 5.78 1.50 - 7.00 K/mcL LAB HEMETOLOGY METHOD 09/22/2024 7:40 PM [facility] Lymphocytes Absolute 2.05 1.00 - 5.00 K/mcL LAB HEMETOLOGY METHOD 09/22/2024 7:40 PM [facility] Monocytes Absolute 0.84 0.20 - 1.00 K/mcL LAB HEMETOLOGY METHOD 09/22/2024 7:40 PM [facility] Eosinophils Absolute 0.12 0.00 - 0.50 K/mcL LAB HEMETOLOGY METHOD 09/22/2024 7:40 PM [facility] Basophils Absolute 0.05 0.00 - 0.20 K/mcL LAB HEMETOLOGY METHOD 09/22/2024 7:40 PM [facility] Immature Granulocytes Absolute 0.02 0.00 - 0.03 K/mcL LAB HEMETOLOGY METHOD 09/22/2024 7:40 PM [facility] Blood Venous blood specimen / Unknown 09/22/2024 09/22/2024 6:24 PM EST Troy GAR LAB BLOOD ORDERABLES Final Res ult Performing Organization Address City/State/[facility] Co de Phone Number [facility] [address] [place] [address], [place] [phone] * Vitamin D 25 hydroxy (09/22/2024 12:00 AM EST) Vit D, 25-Hydroxy 30.1 30.0 - 80.0 ng/mL LAB CHEMISTRY METHOD 09/22/2024 8:21 PM EST [facility] Blood Venous blood specimen / Unknown 09/22/2024 09/22/2024 6:24 PM EST us Troy GAR LAB BLOOD ORDERABLES Final Res ult Performing Organization Address [facility] Co de Phone Number [facility] [address] [place] [address], [place] [phone] * B-type natriuretic peptide (09/22/2024 12:00 AM EST) BNP 17 <=100 pcg/mL LAB CHEMISTRY METHOD 09/22/2024 8:32 PM EST [facility] Blood Venous blood specimen / Unknown 09/22/2024 09/22/2024 6:24 PM EST us Troy GAR LAB BLOOD ORDERABLES Final Res ult Performing Organization Address City/[facility]/ZIP Co de Phone Number [facility] [address] [place] [address], [place] [phone] * Magnesium (09/22/2024 12:00 AM EST) Magnesium 2.1 1.9 - 2.6 mg/dL LAB CHEMISTRY METHOD 09/22/2024 8:12 PM EST [facility] Blood Venous blood specimen / Unknown 09/22/2024 09/22/2024 6:24 PM EST us Troy GAR LAB BLOOD ORDERABLES Final Res ult Performing Organization Address [facility]/ZIP Co de Phone Number [facility] [address] [place] [address], [place] [phone] * LDL cholesterol, direct (09/22/2024 12:00 AM EST) Pathologist [facility] LDL Direct 59 <=100 mg/dL LAB CHEMISTRY METHOD 09/22/2024 8:12 PM EST [facility] Blood Venous blood specimen / Unknown 09/22/2024 09/22/2024 6:24 PM EST us Troy GAR LAB BLOOD ORDERABLES Final Res ult Performing Organization Address [facility]/ZIP Co de Phone Number [facility] [address] [place] [address], [place] [phone] * Vitamin B12 (09/22/2024 12:00 AM EST) Pathologist [facility] Vitamin B-12 560 250 - 900 pcg/mL LAB CHEMISTRY METHOD 09/22/2024 8:34 PM EST [facility] Blood Venous blood specimen / Unknown 09/22/2024 09/22/2024 6:24 PM EST us Troy GAR LAB BLOOD ORDERABLES Final Res ult Performing Organization Address [facility]/ZIP Co de Phone Number [facility] [address] [place] [address], [place] [phone] * (ABNORMAL) Comprehensive metabolic panel (09/22/2024 12:00 AM EST) [facility] Sodium 141 133 - 145 mmol/L LAB CHEMISTRY METHOD 09/22/2024 8:12 PM EST [facility] Potassium 4.3 3.5 - 5.5 mmol/L LAB CHEMISTRY METHOD 09/22/2024 8:12 PM EST [facility] Chloride 111(H) 96 - 110 mmol/L LAB CHEMISTRY METHOD 09/22/2024 8:12 PM [facility] CO2 26 21 - 32 mmol/L LAB CHEMISTRY METHOD 09/22/2024 8:12 PM [facility] Anion Gap 4 3 - 11 LAB CHEMISTRY METHOD 09/22/2024 8:12 PM [facility] Glucose 101(H) 70 - 100 mg/dL LAB CHEMISTRY METHOD 09/22/2024 8:12 PM [facility] BUN 20 5 - 25 mg/dL LAB CHEMISTRY METHOD 09/22/2024 8:12 PM [facility] Creatinine 0.93 0.70 - 1.30 mg/dL LAB CHEMISTRY METHOD 09/22/2024 8:12 PM [facility] eGFR 78 >=60 mL/min/1. 73m2 LAB CHEMISTRY METHOD 09/22/2024 8:12 PM [facility] Comment:Calculation based on the??Chronic Kidney Disease Epidemiology Collaboration (CKD-EPI) equation refit??without adjustment for race. BUN/Creatinine Ratio 21.5 LAB CHEMISTRY METHOD 09/22/2024 8:12 PM [facility] Calcium 9.2 8.5 - 10.5 mg/dL LAB CHEMISTRY METHOD 09/22/2024 8:12 PM [facility] AST (SGOT) 22 10 - 42 unit/L LAB CHEMISTRY METHOD 09/22/2024 8:12 PM [facility] ALT (SGPT) 36 10 - 60 unit/L LAB CHEMISTRY METHOD 09/22/2024 8:12 PM [facility] Alkaline Phosphatase 160(H) 42 - 121 unit/L LAB CHEMISTRY METHOD 09/22/2024 8:12 PM [facility] Total Protein 7.1 6.0 - 8.0 g/dL LAB CHEMISTRY METHOD 09/22/2024 8:12 PM [facility] Albumin 3.7 3.2 - 5.0 g/dL LAB CHEMISTRY METHOD 09/22/2024 8:12 PM EST [facility] Total Bilirubin 0.7 0.0 - 1.4 mg/dL LAB CHEMISTRY METHOD 09/22/2024 8:12 PM EST [facility] Blood Venous blood specimen / Unknown 09/22/2024 09/22/2024 6:24 PM EST Troy GAR LAB BLOOD ORDERABLES Final Res ult [facility] [address] [place] [address], [place] [phone] * Hemoglobin A1c (08/04/2024 4:02 PM EST) Hemoglobin A1C 5.7 <6.5 % LAB CHEMISTRY METHOD 08/04/2024 9:28 PM EST [facility] Mean Bld Glu Estim. 117 mg/dL LAB CHEMISTRY METHOD 08/04/2024 9:28 PM EST [facility] Blood Venous blood specimen / Unknown Venipuncture / Unknown 08/04/2024 4:02 PM EST 08/04/2024 4:32 PM EST Bakari Akhtar MD LAB BLOOD ORDERABLES Final Result [facility] [address] [place] [address], [place] [phone] from Last 3 Months or Most Recently Relevant to Health Maintenance Insurance [place] [id number] MEDICARE [facility] Care Teams Socially Responsible Investment Adviser Relationship Specialty Start Date End Date Troy Butcher PA [address] [place] [id number] PCP - General Primary Care 12/09/24
== END 2024-12-19 09:40 | disposition home or self-care (01) ==
LOC: HO.US 09:39
PROVIDERS: Visit Provider Hospitalist
DX: E04.1 Nontoxic single thyroid nodule (principal)
CPT/HCPCS: 76536

== ENCOUNTER → 2024-12-19 09:42 | Outpatient (BNV) | payer MEDICARE, SELFPAY | PROVIDERS: Visit Provider Radiology Diagnostic Radiology | DX: E04.1 Nontoxic single thyroid nodule (principal) | CPT/HCPCS: 76536 ==

== ENCOUNTER 2025-01-04 10:33 | Outpatient (AMB) | payer MEDICARE, SELFPAY ==
--- NOTE | 2025-01-04 10:36 | A.OFFVIS_ITS ---
Vital Signs 01/04/25 10:45 Height 6 ft Weight 215 lb 13.321 oz BMI 29.3 BP 134/72 Blood Pressure Location Rt brachial Position Sitting Pulse 73 Pulse Source Pulse Oximeter Pulse Oximetry (%) 95 Oxygen Delivery Method Room Air Intake Visit Reasons: Nontoxic single thyroid nodule Intake Note: New patient internally referred by Dr. Card for Thyroid Nodule, abnormal Thyroid US. Certified Nurse Midwife Required: No Accompanied by: Significant Other Allergies Sulfa Drugs Allergy (Intermediate, Uncoded 01/04/25 10:46) Vomiting HPI Comments Details: The patient is an 89-year-old male presenting with a thyroid nodule discovered during a prior CAT scan by Dr. Card. He did not have prior knowledge of the nodule and denies symptoms such as trouble swallowing, hoarseness, neck tenderness, or unexplained weight changes related to the thyroid. He reports no difficulty breathing when lying flat, and there is no family history of thyroid cancer. The patient has COPD and attends regular appointments with Dr. Card for its management. He does not have any prior biopsies or history of radiation treatment to the head or neck. Was initially diagnosed with multinodular thyroid in CT Scan with thyroid US revealing R nodule . Currently denies any dysphagia or hoarseness of voice. Denies sensation of swelling in the neck or difficulty breathing while lying flat. Denies any tenderness in the neck. Denies any palpitations, tremors, weight loss, frequent bowel movements. Denies hair loss, dry skin, heat or cold intolerance, weight gain, confusion. Denies any history of head or neck irradiation. Denies any family history of thyroid cancer. Had biopsy of nodules in the past. Thyroid US: 12/19/24 EXAMINATION: US THYROID HISTORY: E04.1 - Nontoxic single thyroid nodule TECHNIQUE: Real-time grayscale ultrasound imaging was performed and images were reviewed. COMPARISON: Correlation is made with an unenhanced chest CT dated 09/30/2024. FINDINGS: SIZE: The right thyroid lobe measures 6.0 x 3.1 x 2.4 cm. The left thyroid lobe measures 3.9 x 2.0 x 2.1 cm. The isthmus measures 6 mm. FLOW: Flow to the gland is normal. ECHOGENICITY: The echotexture of the gland is homogeneous. NODULES: There is a single nodule on the right corresponding to the abnormality seen on CT. Imaging characteristics are as follows: Nodule #: 1 Location: Interpolar region of the right thyroid lobe measuring 2.8 x 2.1 x 2.6 cm. The lesion is predominantly cystic with a small mural nodule. Shape: Wider than tall (0 points) Margins: Smooth (0 points) Echotexture: Hypoechoic (2 points) Composition: Mixed (1 point) Calcifications: None (0 points) Total points: 3 TIRADS: TR3: Mildly suspicious. Labs: [facility] Medical History (Updated 11/16/24 @ 10:00 by Phuc Card MD) Thyroid nodule Tuberculosis Asbestos-induced pleural plaque Abnormal chest x-ray Atelectasis Elevated diaphragm Chronic respiratory failure COPD (chronic obstructive pulmonary disease) Surgical History (Updated 01/04/25 @ 10:50 by NOE Mae) Hx of heart artery stent History of knee replacement History of circumcision Hx of hernia repair History of prostate surgery Family History (Updated 08/06/20 @ 22:23 by Phuc Card MD) Father No problems noted. Social History Patient Tobacco Use Status: Former Tobacco user Tobacco use type: Cigarette Years Smoked: Quit 1997 Physical Exam Vital Signs: BMI result Body Mass Index 29.3 HEENT reveals absence of lid lag , stare or proptosis or eyebrow loss. Thyroid gland measure 1 gms . No nodules or tenderness palpated. There is no cervical adenopathy palpated. Lungs CTA. Heart S1, S2 Reg R/R -M/R/G. Abdominal exam benign. Skin exam reveals absence of dryness or thyroid dermopathy or vitiligo. Nail exam reveals absence of thyroid acropachy or oncholysis. Neurologic exam reveals 2+ reflexes . Muscle Strength is 5/5 proximally. There are no tremors in upper extremities. Assessment & Plan Assessment & Plan (1) Thyroid nodule: Code(s): E04.1 - Nontoxic single thyroid nodule Category: Medical Plan: This 89-year-old white male with a history right thyroid nodule. This was discovered incidentally on CAT scan. Patient appears to be clinically euthyroid Will check TSH and free T4. Assuming above is normal, we will refer patient to Dr. Hou an molding process technician with expertise in ultrasound-guided FNA in our practice 1. Thyroid nodule Further evaluation of the thyroid nodule with planned thyroid function blood tests, discussion of potential fine needle aspiration biopsy if indicated, with Dr. Hou involved in the procedure. Likely benign based on statistics discussed, but confirmed diagnosis would guide potential further action. I explained to the patient that the thyroid nodule is most likely benign, given the commonality of such findings and statistical likelihood. We reviewed the management plan including obtaining thyroid function tests and potential fine needle aspiration biopsy to confirm the nature of the nodule. With regard to biopsy, we discussed possible procedural risks such as bleeding and infection, reviewed that in most cases these nodules are benign, and considered the follow- up should biopsy results differ. We addressed surgical options and the implications considering his age and other comorbidities like COPD. The patient consented to proceed with recommended evaluations and understands the planned follow-up appointment with Dr. Martínez. - Complete the thyroid function blood tests as discussed. - Check out with the front office secretary to schedule an appointment with Dr. Hou for further evaluation. - Follow the clear instructions given for reaching the lab and ensure blood tests are done today if possible. - Monitor health and if any changes or new symptoms occur, seek medical advice promptly. - The patient had an opportunity to ask questions regarding treatment plan. The patient expressed understanding and agreement with the above treatment plan. Patient was informed and verbally consented to the use of an ambient scribe for clinic note documentation during this visit. Orders: Orders Free T4 (Free Thyroxine) Today E04.1 - Nontoxic single thyroid nodule Thyroid Stimulating Hormone Today E04.1 - Nontoxic single thyroid nodule Coding Level of Care Code New Pt Level 4 (86435) Diagnoses Thyroid nodule E04.1
[2025-01-04 10:45] VITALS: BP 134/72; PULSE 73; O2SAT 95; BMI 29.3
--- OUTSIDE RECORDS SUMMARY | 2025-01-04 12:28 | XMS_ITS | Clinical Summary ---
Author Organization [address] Address [address] [place] [id number] Phone Care Team Providers Care Inspector Watch [employer] Name Role Phone Troy Butcher Primary Care Provider [phone] Allergies Active Allergy Reactions Criticality Noted Date [...] Comment: To See Dr. 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 Diastolic heart failure (CMS/HCC V24, CMS/HCC V2 8) 06/12/2022 Overview (12/09/2024): Last Assessment & Plan: [...] 2:40 PM EDT Office Visit [facility] [address] [facility] [address] [place] [address] Brandi Keating NP Coronary artery disease involving [place] coronary artery of [place] heart without angina pectoris (Primary Dx); Chronic diastolic heart failure (CMS/HCC V24, CMS/HCC V28); YEH (dyspnea on exertion); Primary hypertension; Hyperlipidemia, unspecified hyperlipidemia type; Aortic root dilation (CMS/HCC V24); Class 1 obesity due to excess calories with serious comorbidity and body mass index (BMI) of 31.0 to 31.9 in adult from Last 3 Months Surgical History Surgery [...] 1:30 PM EDT Ancillary Procedure [facility] [address] [place] [address] Health Maintenance Due Date Last Done Comments Diabetes: Annual Foot Exam 1945 Diabetes: Annual Retina Eye Exam 1945 Depression Screening 08/17/2022 Falls Risk Assessment 08/17/2022 Social Influencers of Health Screening 08/17/2022 Medicare Annual Wellness Visit 02/20/2024 02/19/2023 COVID-19 Vaccine (9 - Moderna risk season) 2024 06/22/2024, 10/08/2023, 08/05/2022, Additional history exists Diabetes: Blood Sugar Control Test (HGBA1C) 02/01/2025 08/04/2024 Hypertension/CHF/CAD Annual BMP Blood Test 09/22/2025 09/22/2024 DTaP,Tdap,and Td Vaccines (3 - Td or Tdap) 08/13/2027 08/13/2017, 07/28/2011 Cholesterol Screening (Lipid Panel) 09/22/2029 09/22/2024, 09/22/2024 Zoster Vaccines Completed 02/27/2019, 11/12, 02/18/2012 Pneumococcal Vaccine: 50+ Years Completed 07/03/2021, 08/13/2017, 11/13/2003 RSV Immunization Adult Patients Completed 07/30/2023 Influenza Vaccine Completed 06/01/2024, , 05/27/2023, Additional history exists HIB Vaccines Aged Out [...] age to complete this topic Meningococcal B Vaccine Aged Out No l onger eligible based on patient's age to complete this topic RSV Immunization Patients Under 20 months Aged Out No longer eligible based on patient's age to complete this topic Varicella Vaccines Aged Out No longer eligible based on patient's age to complete this topic Procedures Procedure Name Priority Date/Time Associated Diagnosis Comments COMPREHENSIVE METABOLIC PANEL Routine 09/22/2024 12:00 AM EST Chronic obstructive pulmonary disease, unspecified (CMS/HCC) Type 2 diabetes mellitus without complications (CMS/HCC) LIPID PANEL WITH REFLEX TO DIRECT LDL Routine 09/22/2024 12:00 AM EST Chronic obstructive pulmonary disease, unspecified (CMS/HCC) Type 2 diabetes mellitus without complications (CMS/HCC) HEMOGLOBIN A1C Routine 08/04/2024 4:02 PM EST Diabetes mellitus (CMS/HCC V24, CMS/HCC V28) from Last 3 Months or Most Recently Relevant to Health Maintenance Results * Lipid panel with reflex to direct LDL (09/22/2024 12:00 AM EST) Cholesterol 122 0 - 200 mg/dL LAB CHEMISTRY METHOD 09/22/2024 8:[address] [facility] Triglycerides 90 0 - 150 mg/dL LAB CHEMISTRY METHOD 09/22/2024 8:[address] [facility] HDL 56 >=40 mg/dL LAB CHEMISTRY METHOD 09/22/2024 8:[address] [facility] LDL Calculated 48 0 - 100 mg/dL LAB CHEMISTRY METHOD 09/22/2024 8:[address] [facility] VLDL Cholesterol Jaya 18 mg/dL LAB CHEMISTRY METHOD 09/22/2024 8:[address] [facility] Non HDL Chol. (LDL+VLDL) 66 <145 mg/dL LAB CHEMISTRY METHOD 09/22/2024 8:[address] [facility] Chol/HDL Ratio 2.2 0.0 - 4.4 LAB CHEMISTRY METHOD 09/22/2024 8:[address] [facility] Blood Venous blood specimen / Unknown 09/22/2024 09/22/2024 6:24 PM EST us Troy GAR LAB BLOOD ORDERABLES Final Res ult [facility] [address] [place] [address], [place] [phone] * (ABNORMAL) Comprehensive metabolic panel (09/22/2024 12:00 AM EST) Sodium 141 133 - 145 mmol/L LAB CHEMISTRY METHOD 09/22/2024 8:12 PM EST [facility] Potassium 4.3 3.5 - 5.5 mmol/L LAB CHEMISTRY METHOD 09/22/2024 8:[address] [facility] Chloride 111(H) 96 - 110 mmol/L LAB CHEMISTRY METHOD 09/22/2024 8:[address] [facility] CO2 26 21 - 32 mmol/L LAB CHEMISTRY METHOD 09/22/2024 8:[address] [facility] Anion Gap 4 3 - 11 LAB CHEMISTRY METHOD 09/22/2024 8:[address] [facility] Glucose 101(H) 70 - 100 mg/dL LAB CHEMISTRY METHOD 09/22/2024 8:[address] [facility] BUN 20 5 - 25 mg/dL LAB CHEMISTRY METHOD 09/22/2024 8:[address] [facility] Creatinine 0.93 0.70 - 1.30 mg/dL LAB CHEMISTRY METHOD 09/22/2024 8:[address] [facility] eGFR 78 >=60 mL/min/1. 73m2 LAB CHEMISTRY METHOD 09/22/2024 8:[address] [facility] Comment:Calculation based on the??Chronic Kidney Disease Epidemiology Collaboration (CKD-EPI) equation refit??without adjustment for race. BUN/Creatinine Ratio 21.5 LAB CHEMISTRY METHOD 09/22/2024 8:[address] [facility] Calcium 9.2 8.5 - 10.5 mg/dL LAB CHEMISTRY METHOD 09/22/2024 8:[address] [facility] AST (SGOT) 22 10 - 42 unit/L LAB CHEMISTRY METHOD 09/22/2024 8:[address] [facility] ALT (SGPT) 36 10 - 60 unit/L LAB CHEMISTRY METHOD 09/22/2024 8:[address] [facility] Alkaline Phosphatase 160(H) 42 - 121 unit/L LAB CHEMISTRY METHOD 09/22/2024 8:[address] [facility] Total Protein 7.1 6.0 - 8.0 g/dL LAB CHEMISTRY METHOD 09/22/2024 8:[address] [facility] Albumin 3.7 3.2 - 5.0 g/dL LAB CHEMISTRY METHOD 09/22/2024 8:[address] [facility] Total Bilirubin 0.7 0.0 - 1.4 mg/dL LAB CHEMISTRY METHOD 09/22/2024 8:[address] [facility] Blood Venous blood specimen / Unknown 09/22/2024 09/22/2024 6:24 PM EST us Troy GAR LAB BLOOD ORDERABLES Final Res ult [facility] [address] [place] [address], * Hemoglobin A1c (08/04/2024 4:02 PM EST) Hemoglobin A1C 5.7 <6.5 % LAB CHEMISTRY METHOD 08/04/2024 9:[address] [facility] Mean Bld Glu Estim. 117 mg/dL LAB CHEMISTRY METHOD 08/04/2024 9:[address] [facility] Blood Venous blood specimen / Unknown Venipuncture / Unknown 08/04/2024 4:02 PM EST 08/04/2024 4:32 PM EST us Bakari Akhtar MD LAB BLOOD ORDERABLES Final Result [facility] [address] [place] [address], from Last 3 Months or Most Recently Relevant to Health Maintenance Insurance MEDICARE [facility] Care Teams Inspector Watch Parts Relationship Specialty Start Date End Date Troy Butcher PA [phone] [id number] PCP - General Primary Care 12/09/24
--- OUTSIDE RECORDS SUMMARY | 2025-01-04 12:28 | XMS_ITS | Encounter Summary ---
Author Organization [facility] Address [address] [place] [address] Care Team Providers Care Household Appliance Installer Name Role Phone Troy Butcher Primary Care Provider [phone] Encounter Details Date Type Department Care Team (Latest Contact Info) Description 09/22/2024 Lab Requisition [facility] - Main Lab [address] [facility] [place] [id number] Troy Butcher PA [address] [facility] [address] [place] [address] Chronic obstructive pulmonary disease, unspecified (CMS/HCC V24, CMS/HCC V28); Type 2 diabetes mellitus without complications (CMS/HCC V24, CMS/HCC V28) Social History Tobacco Use Types Packs/Day Years [...] Description 02/27/2025 1:30 PM EDT Ancillary Procedure [facility] - [address] [place] [address] documented as of this encounter [...] SST tube (09/22/2024 12:00 AM EST) Pathologist [facility] Extra Tube Hold for add-ons. 09/22/2024 8:01 PM EST [facility] Comment:Auto resulted. Blood Venous blood specimen / Unknown 09/22/2024 09/22/2024 6:24 PM EST us Troy GAR LAB BLOOD ORDERABLES Final Res ult [facility] [address] [place] [address], [place] [phone] * (ABNORMAL) CBC auto differential (09/22/2024 12:00 AM EST) [facility] WBC 8.9 4.8 - 10.8 K/mcL LAB HEMETOLOGY METHOD 09/22/2024 7:40 PM [facility] RBC 4.70 4.50 - 5.50 M/mcL LAB HEMETOLOGY METHOD 09/22/2024 7:40 PM [facility] Hemoglobin 14.7 13.5 - 17.5 g/dL LAB HEMETOLOGY METHOD 09/22/2024 7:40 PM [facility] Hematocrit 45.8 42.0 - 54.0 % LAB HEMETOLOGY METHOD 09/22/2024 7:40 PM [facility] MCV 97.9 79.0 - 98.0 FL LAB HEMETOLOGY METHOD 09/22/2024 7:40 PM [facility] MCH 31.4 27.0 - 32.0 pcg LAB HEMETOLOGY METHOD 09/22/2024 7:40 PM [facility] MCHC 32.1 32.0 - 37.0 g/dL LAB HEMETOLOGY METHOD 09/22/2024 7:40 PM [facility] RDW 13.3 11.0 - 15.0 % LAB HEMETOLOGY METHOD 09/22/2024 7:40 PM [facility] Platelets 151 130 - 400 K/mcL LAB HEMETOLOGY METHOD 09/22/2024 7:40 PM [facility] MPV 12.4(H) 7.0 - 11.0 FL LAB HEMETOLOGY METHOD 09/22/2024 7:40 PM [facility] NRBC 0.0 <1.0 % LAB HEMETOLOGY METHOD 09/22/2024 7:40 PM [facility] NRBC Absolute 0.00 <0.10 K/mcL LAB HEMETOLOGY METHOD 09/22/2024 7:40 PM [facility] Neutrophils Relative 65.2 % LAB HEMETOLOGY METHOD 09/22/2024 7:40 PM [facility] Lymphocytes Relative 23.1 % LAB HEMETOLOGY METHOD 09/22/2024 7:40 PM [facility] Monocytes Relative 9.5 % LAB HEMETOLOGY METHOD 09/22/2024 7:40 PM [facility] Eosinophils Relative 1.4 % LAB HEMETOLOGY METHOD 09/22/2024 7:40 PM [facility] Basophils Relative 0.6 % LAB HEMETOLOGY METHOD 09/22/2024 7:40 PM [facility] Immature Granulocytes Relative 0.2 % LAB HEMETOLOGY METHOD 09/22/2024 7:40 PM [facility] Neutrophils Absolute 5.78 1.50 - 7.00 K/mcL LAB HEMETOLOGY METHOD 09/22/2024 7:40 PM [facility] Lymphocytes Absolute 2.05 1.00 - 5.00 K/mcL LAB HEMETOLOGY METHOD 09/22/2024 7:40 PM EST [facility] Monocytes Absolute 0.84 0.20 - 1.00 K/[facility] LAB HEMETOLOGY METHOD 09/22/2024 7:40 PM EST [facility] Eosinophils Absolute 0.12 0.00 - 0.50 K/[facility] LAB HEMETOLOGY METHOD 09/22/2024 7:40 PM EST [facility] Basophils Absolute 0.05 0.00 - 0.20 K/[facility] LAB HEMETOLOGY METHOD 09/22/2024 7:40 PM EST [facility] Immature Granulocytes Absolute 0.02 0.00 - 0.03 K/[facility] LAB HEMETOLOGY METHOD 09/22/2024 7:40 PM EST [facility] Blood Venous blood specimen / Unknown 09/22/2024 09/22/2024 6:24 PM EST us Troy GAR LAB BLOOD ORDERABLES Final Res ult [facility] [address] [place] [address], * (ABNORMAL) Prostate specific antigen screen (09/22/2024 12:00 AM EST) PSA 27.54(H) 0.00 - 4.00 ng/mL LAB CHEMISTRY METHOD 09/22/2024 8:21 PM EST [facility] Blood Venous blood specimen / Unknown 09/22/2024 09/22/2024 6:24 PM EST Narrative [facility] - 09/22/2024 8:21 PM EST The Siemens Advia Centaur Chemiluminescent Immunoassay is used. Results obtained with different assay methods or kits cannot be used interchangeably. Results cannot be interpreted as absolute evidence of the presence or absence of malignant disease. us Troy GAR LAB BLOOD ORDERABLES Final Res ult Performing Organization Address [facility]/ZIP Co de Phone Number [facility] [address] [place] [address], [place] [phone] * Magnesium (09/22/2024 12:00 AM EST) Magnesium 2.1 1.9 - 2.6 mg/dL LAB CHEMISTRY METHOD 09/22/2024 8:12 PM EST [facility] Blood Venous blood specimen / Unknown 09/22/2024 09/22/2024 6:24 PM EST Troy GAR LAB BLOOD ORDERABLES Final Res ult Performing Organization Address [facility] Co de Phone Number [facility] [address] [place] [address], [place] [phone] * B-type natriuretic peptide (09/22/2024 12:00 AM EST) BNP 17 <=100 pcg/mL LAB CHEMISTRY METHOD 09/22/2024 8:32 PM EST [facility] Blood Venous blood specimen / Unknown 09/22/2024 09/22/2024 6:24 PM EST us Troy GAR LAB BLOOD ORDERABLES Final Res ult Performing Organization Address City/[facility]/ZIP Co de Phone Number [facility] [address] [place] [address], [place] [phone] * Vitamin B12 (09/22/2024 12:00 AM EST) Vitamin B-12 560 250 - 900 pcg/mL LAB CHEMISTRY METHOD 09/22/2024 8:34 PM EST [facility] Blood Venous blood specimen / Unknown 09/22/2024 09/22/2024 6:24 PM EST us Troy GAR LAB BLOOD ORDERABLES Final Res ult Performing Organization Address City/[facility]/ZIP Co de Phone Number [facility] [address] [place] [address], [place] [phone] * LDL cholesterol, direct (09/22/2024 12:00 AM EST) LDL Direct 59 <=100 mg/dL LAB CHEMISTRY METHOD 09/22/2024 8:12 PM EST [facility] Blood Venous blood specimen / Unknown 09/22/2024 09/22/2024 6:24 PM EST us Troy GAR LAB BLOOD ORDERABLES Final Res ult Performing Organization Address [facility] Co de Phone Number [facility] [address] [place] [address], [place] [phone] * Vitamin D 25 hydroxy (09/22/2024 12:00 AM EST) Vit D, 25-Hydroxy 30.1 30.0 - 80.0 ng/mL LAB CHEMISTRY METHOD 09/22/2024 8:21 PM EST [facility] Blood Venous blood specimen / Unknown 09/22/2024 09/22/2024 6:24 PM EST us Troy GAR LAB BLOOD ORDERABLES Final Res ult Performing Organization Address City/[facility]/ZIP Co de Phone Number [facility] [address] [place] [address], [place] [phone] * Lipid panel with reflex to direct LDL (09/22/2024 12:00 AM EST) Cholesterol 122 0 - 200 mg/dL LAB CHEMISTRY METHOD 09/22/2024 8:34 PM EST [facility] Triglycerides 90 0 - 150 mg/dL LAB CHEMISTRY METHOD 09/22/2024 8:34 PM [facility] HDL 56 >=40 mg/dL LAB CHEMISTRY METHOD 09/22/2024 8:34 PM [facility] LDL Calculated 48 0 - 100 mg/dL LAB CHEMISTRY METHOD 09/22/2024 8:34 PM [facility] VLDL Cholesterol Jaya 18 mg/dL LAB CHEMISTRY METHOD 09/22/2024 8:34 PM [facility] Non HDL Chol. (LDL+VLDL) 66 <145 mg/dL LAB CHEMISTRY METHOD 09/22/2024 8:34 PM [facility] Chol/HDL Ratio 2.2 0.0 - 4.4 LAB CHEMISTRY METHOD 09/22/2024 8:34 PM [facility] Blood Venous blood specimen / Unknown 09/22/2024 09/22/2024 6:24 PM EST us Troy GAR LAB BLOOD ORDERABLES Final Res ult [facility] [address] [place] [address], * (ABNORMAL) Comprehensive metabolic panel (09/22/2024 12:00 AM EST) Sodium 141 133 - 145 mmol/L LAB CHEMISTRY METHOD 09/22/2024 8:12 PM [facility] Potassium 4.3 3.5 - 5.5 mmol/L LAB CHEMISTRY METHOD 09/22/2024 8:12 PM [facility] Chloride 111(H) 96 - 110 mmol/L LAB CHEMISTRY METHOD 09/22/2024 8:12 PM [facility] CO2 26 21 - 32 mmol/L LAB CHEMISTRY METHOD 09/22/2024 8:12 PM [facility] Anion Gap 4 3 - 11 LAB CHEMISTRY METHOD 09/22/2024 8:12 PM [facility] Glucose 101(H) 70 - 100 mg/dL LAB CHEMISTRY METHOD 09/22/2024 8:12 PM [facility] BUN 20 5 - 25 mg/dL LAB CHEMISTRY METHOD 09/22/2024 8:12 PM [facility] Creatinine 0.93 0.70 - 1.30 mg/dL LAB CHEMISTRY METHOD 09/22/2024 8:12 PM [facility] eGFR 78 >=60 mL/min/1. 73m2 LAB CHEMISTRY METHOD 09/22/2024 8:12 PM [facility] Comment:Calculation based on the??Chronic Kidney Disease Epidemiology Collaboration (CKD-EPI) equation refit??without adjustment for race. BUN/Creatinine Ratio 21.5 LAB CHEMISTRY METHOD 09/22/2024 8:12 PM [facility] Calcium 9.2 8.5 - 10.5 mg/dL LAB CHEMISTRY METHOD 09/22/2024 8:12 PM [facility] AST (SGOT) 22 10 - 42 unit/L LAB CHEMISTRY METHOD 09/22/2024 8:12 PM [facility] ALT (SGPT) 36 10 - 60 unit/L LAB CHEMISTRY METHOD 09/22/2024 8:12 PM [facility] Alkaline Phosphatase 160(H) 42 - 121 unit/L LAB CHEMISTRY METHOD 09/22/2024 8:12 PM [facility] Total Protein 7.1 6.0 - 8.0 g/dL LAB CHEMISTRY METHOD 09/22/2024 8:12 PM [facility] Albumin 3.7 3.2 - 5.0 g/dL LAB CHEMISTRY METHOD 09/22/2024 8:12 PM [facility] Total Bilirubin 0.7 0.0 - 1.4 mg/dL LAB CHEMISTRY METHOD 09/22/2024 8:12 PM [facility] Blood Venous blood specimen / Unknown 09/22/2024 09/22/2024 6:24 PM EST us Troy GAR LAB BLOOD ORDERABLES Final Res ult [facility] [address] [place] [address], documented in this encounter Visit Diagnoses Diagnosis Chronic obstructive pulmonary disease, unspecified (CMS/HCC V24, CMS/[facility] V28) Type 2 diabetes mellitus without complications (CMS/HCC V24, CMS/[facility] V28) documented in this encounter Care Teams Household Appliance Installer Relationship Specialty Start Date End Date Troy Butcher PA [address] [address] PCP - General Primary Care 12/09/24 documented as of this encounter
== END 2025-01-04 11:24 | disposition home or self-care (01) ==
LOC: HO.ENCR 10:34
PROVIDERS: Visit Provider Internal Medicine Endocrinology, Diabetes & Metabolism
DX: E04.1 Nontoxic single thyroid nodule (principal)
CPT/HCPCS: 99204

== ENCOUNTER 2025-01-04 11:25 | Outpatient (REF) | payer MEDICARE, SELFPAY ==
--- OUTSIDE RECORDS SUMMARY | 2025-01-04 13:49 | XMS_ITS ---
Author Name [facility] [facility] [place] Address [address] [place] [address] Care Team Providers Care Pharmacy Technician Name Role Phone GILES FUENTES Primary [...] CAREMARK PRESCRIPT ION GEKEO Sep 14, 2014 [id number] [phone] FANY MALDONADO ON PATIENT CAREMARK PRESCRIPT ION SUSI ATKINSON Sep 14, 2014 [id number] [phone] FANY MALDONADO ON PATIENT CAREMARK PRESCRIPT ION Sep 14, 2014 [id number] [phone] ALLAN,MYR ON PATIENT GEHA (SECONDARY ) PREFERRED PROVIDER ORGANIZAT ION (PPO) HIGH OPTIO N [facility] A&B Sep 14, 2005 [id number] [phone] ALLAN,MYR ON PATIENT GEHA (SECONDARY ) PREFERRED PROVIDER ORGANIZAT ION (PPO) GEHA CONNE CTION DENT Sep 14, 2005 [id number] [phone] ALLAN,MYR ON PATIENT GEHA FEHB PREFERRED PROVIDER ORGANIZAT ION (PPO) SUSI AL GOV Sep 14, 2005 [id number] ALTH [id number] ALLAN,MYR ON PATIENT GEHA FEHB PREFERRED PROVIDER ORGANIZAT ION (PPO) SUSI AL* Sep 14, 1989 [id number] ALTH [id number] [phone] ALLAN,MYR ON PATIENT GEHA-BEHAV [facility] GEHA HIGH OPTIO N Sep 14, 2021 [id number] ALLAN,MYR ON PATIENT MEDICARE (WNR) MEDICARE (M) PART A May 15, 2000 PART A [id number] ALLAN,MYR ON PATIENT MEDICARE (WNR) MEDICARE (M) PART B May 15, 2000 PART B [id number] ALLAN,MYR ON PATIENT MEDICARE (WNR) MEDICARE (M) PART A May 15, 2000 PART A [id number] ALLAN,MYR ON PATIENT MEDICARE (WNR) MEDICARE (M) PART B May 15, 2000 PART B [id number] ALLAN,MYR ON PATIENT MEDICARE (WNR) MEDICARE (M) PART A May 15, 2000 PART A [id number] ALLAN,MYR ON PATIENT MEDICARE (WNR) MEDICARE (M) PART B May 15, 2000 PART B [id number] [phone] ALLAN,MYR ON PATIENT MEDICARE (WNR) MEDICARE (M) PART A May 15, 2000 PART A [id number] FANY MALDONADO ON PATIENT MEDICARE (WNR) MEDICARE (M) PART B May 15, 2000 PART B [id number] FANY MALDONADO ON PATIENT Selected Encounter This section includes the information on record at [place] for the Encounter. Date/Time Encounter Type Encounter Description Reason Provider Source Aug 17, 2024 02:31 PM QNHP OL DIG ASSMT&MGMT 21+ HBPC - CLINICAL PHARMACIST ICD-10-CM Z79.899 Other intermediate accountant (current) drug therapy JOSE DE JESUS MONTGOMERY E Encounter Template Text not used by [place] Assessments - Encounter Diagnoses This section includes the primary and secondary diagnoses documented for the Encounter. Date/Time Primary/Secondary Diagnosis Diagnosis Name Provider Source Aug 17, 2024 05:12 PM PRIMARY Other mcfp (current) drug therapy JOSE DE JESUS MONTGOMERY [facility] Plan of Treatment: Future Appointments (+ 6 months) and Future Tests (+/- 45 days) The Plan of Treatment section includes future care activities for the patient from all [place] [facility]. This section includes future appointments and future orders which are active, pending or scheduled. Future Appointments This section includes appointments that were scheduled to occur 6 months from the date of the Encounter, up to a maximum of 20 appointments. The data comes from all [facility]. Appointment Date/Time Appointment Type Appointme nt Facility Name Sep 26, 2024 10:00 AM AMBULATORY - REHAB MEDICIN E [facility] Oct 21, 2024 11:30 AM [facility] Active, Pending, and Scheduled Orders This section includes a listing of several types of active, pending, and scheduled orders, including clinic medications orders, diagnostic test orders, procedure orders and consult orders; where the start date of the order is 45 days before the date of the Encounter or 45 days after the date of theEncounter. The data comes from all [facility]. Test Date/Time Test Type Test Details Facility Name Aug 30, 2024 12:00 AM Laboratory - Chemi stry Order BASIC METABOLIC PANEL (non-fasting) BLOOD (SST-SERUM) SP [facility] Aug 30, 2024 12:00 AM Laboratory - Chemi stry Order BNP (Natriuretic Peptide Brain) BLOOD (LAV-PLASMA) [facility] Social History: Smoking Status (Most current) and [...] 02, 2023 05:30 PM VA-TOBACCO FORMER USER [facility] Tobacco Use History This section includes a history of the smoking, or tobacco-related health factors, that were collected on or before the date of the Encounter. The data comes from the [place] facility where the Encounter took place. Date/Time Smoking Status/Tobacco Use Comment F acility Sep 02, 2023 05:30 PM VA-TOBACCO QUIT 15 YRS OR MORE [facility] Apr 24, 2022 01:00 PM [facility]AC[facility] Apr 24, 2022 01:00 PM VA-TOBACCO QUIT 15 YRS OR MORE [facility] Dec 05, 2021 02:00 PM VA-TOBACCO USE DEC LINED TO ANSWER [facility] Nov 24, 2021 04:05 PM VA-TOBACCO USE DEC LINED TO ANSWER [facility] Sep 20, 2020 08:40 AM VA-TOBACCO NEVER USED [facility] Advance Directives: All historical and current [...] Nov 11, 2016 ADVANCE DIRECTIVE ELROY CH[facility]Z [facility] Jul 08, 2006 ADVANCE DIRECTIVE CHAPARRO DICK [facility] Encounter Notes: All associated encounter [...] renew if plan is to continue. - Boyd remains on non-VA Trelegy for COPD as [...] 45 min /esthela/ JOSE DE JESUS MONTGOMERY [facility] Clinical Pharmacist Practitioner Signed: 08/17/2024 17:33 Receipt Acknowledged By: 08/18/2024 07:44 /esthela/ GILES FUENTES [facility] NURSE PRACTITIONER 08/18/2024 12:13 /esthela/ Doris Mcnair RN [facility] chief recordist JOSE DE JESUS MONTG[facility]
--- OUTSIDE RECORDS SUMMARY | 2025-01-04 13:49 | XMS_ITS ---
Author Name [facility] [place] [facility] Address [address] [place] [address] Care Team Providers Care Director Of Laboratory Operations Name Role Phone GILES FUENTES Primary Care [...] CAREMARK PRESCRIPT ION SREEKANTH Sep 14, 2014 [id number] [phone] FANY LEMUS ON PATIENT CAREMARK PRESCRIPT ION SUSI ATKINSON Sep 14, 2014 [id number] [phone] FANY LEMUS ON PATIENT CAREMARK PRESCRIPT ION Sep 14, 2014 [id number] ALLAN,MYR ON PATIENT GEHA (SECONDARY ) PREFERRED PROVIDER ORGANIZAT ION (PPO) HIGH OPTIO N [facility] A&B Sep 14, 2005 [id number] [phone] ALLAN,MYR ON PATIENT GEHA (SECONDARY ) PREFERRED PROVIDER ORGANIZAT ION (PPO) GEHA CONNE CTION DENT Sep 14, 2005 [id number] [phone] [id number] ALLAN,MYR ON PATIENT GEHA FEHB PREFERRED PROVIDER ORGANIZAT ION (PPO) SUSI AL GOV Sep 14, 2005 [id number] ALTH [id number] [phone] ALLAN,MYR ON PATIENT GEHA FEHB PREFERRED PROVIDER ORGANIZAT ION (PPO) SUSI AL* Sep 14, 1989 [id number] ALTH [id number] ALLAN,MYR ON PATIENT GEHA-[facility] GEHA HIGH OPTIO N Sep 14, 2021 [id number] [phone] [id number] ALLAN,MYR ON PATIENT MEDICARE (WNR) MEDICARE (M) PART A May 15, 2000 PART A [id number] ALLAN,MYR ON PATIENT MEDICARE (WNR) MEDICARE (M) PART B May 15, 2000 PART B [id number] ALLAN,MYR ON PATIENT MEDICARE (WNR) MEDICARE (M) PART A May 15, 2000 PART A [id number] ALLAN,MYR ON PATIENT MEDICARE (WNR) MEDICARE (M) PART B May 15, 2000 PART B [id number] ALLAN,MYR ON PATIENT MEDICARE (WNR) MEDICARE (M) PART A May 15, 2000 PART A [id number] ALLAN,MYR ON PATIENT MEDICARE (WNR) MEDICARE (M) PART B May 15, 2000 PART B [id number] ALLAN,MYR ON PATIENT MEDICARE (WNR) MEDICARE (M) PART A May 15, 2000 PART A [id number] [phone] FANY LEMUS ON PATIENT MEDICARE (WNR) MEDICARE (M) PART B May 15, 2000 PART B [id number] FANY LEMUS ON PATIENT Selected Encounter This section includes the information on record at [place] for the Encounter. Date/Time Encounter Type Encounter Description Reason Pro vider Source Dec 02, 2024 10:08 PM Outpatient Encounter ADMIN PAT ACTIVTIES (MASNONCT) IHE Encounter Template Text not used by [place] Plan of Treatment: Future Appointments (+ 6 months) and Future Tests (+/- 45 days) The Plan of Treatment section includes future care activities for the patient from all [place] treatmentfacilities. This section includes future appointments and future orders which are active, pending or scheduled. Future Appointments This section includes appointments that were scheduled to occur 6 months from the date of the Encounter, up to a maximum of 20 appointments. The data comes from all [place] treatment [facility]. Appointment Date/Time Appointment Type Appointme nt Facility Name Feb 24, 2025 11:30 AM [facility] Mar 23, 2025 11:00 AM [facility] Mar 23, 2025 12:00 PM [facility] Apr 13, 2025 02:30 PM [facility] Active, Pending, and Scheduled Orders This section includes a listing of several types of active, pending, and scheduled orders, including clinic medications orders, diagnostic test orders, procedure orders and consult orders; where the start date of the order is 45 days before the date of the Encounter or 45 days after the date of theEncounter. The data comes from all [facility]. Test Date/Time Test Type Test Details Facility Name Dec 13, 2024 12:00 AM Laboratory - Chemistry Order HEMOGLOBIN A1C PANEL BLOOD (LAV-BLOOD) SP [facility] Social History: Smoking Status (Most current) and Tobacco Use (All prior to encounter date) This section includes the most current, and the historical, smoking and tobacco- related health factors from the [place] facility where the Encounter took place. Current Smoking Status This section includes the most current smoking, or tobacco-related health factor, from the [facility] facility where the Encounter took place. Date/Time Current Smoking Status Comment Facil ity Aug 31, 2024 01:52 PM VA-TOBACCO NEVER U SED OTHER TYPE [facility] Tobacco Use History This section includes a history of the smoking, or tobacco-related health factors, that were collected on or before the date of the Encounter. The data comes from the [place] facility where the Encounter took place. Date/Time Smoking Status/Tobacco Use Comment F acility Aug 31, 2024 01:52 PM VA-TOBACCO USE FOR BERNICE CIGARETTES [facility] Sep 02, 2023 05:30 PM VA-TOBACCO [facility] Sep 02, 2023 05:30 PM VA-TOBACCO QUIT 15 YRS OR MORE [facility] Apr 24, 2022 01:00 PM VA-TOBACCO FORMER USER [facility] Apr 24, 2022 01:00 PM VA-TOBACCO QUIT 15 YRS OR MORE [facility] Dec 05, 2021 02:00 PM VA-TOBACCO USE DEC [facility] Nov 24, 2021 04:05 PM VA-TOBACCO USE DEC LINED TO ANSWER [facility] Sep 20, 2020 08:40 AM VA-TOBACCO NEVER USED [facility] Advance Directives: All historical and current Section Date Range: From patient's date of to the date document was created. This section includes ALL of a patient's completed or amended [place] Advance and Rescinded Directives. The entries below indicate that a directive exists for the patient, but an actual copy is not included with this document. The data comes from all [place] facilities. Date Advance Directives Provider Source Nov 11, 2016 ADVANCE DIRECTIVE ELROY CHÁVEZ [facility] [place] [facility] Jul 08, 2006 ADVANCE DIRECTIVE CHAPARRO DICK [facility] Encounter Notes: All associated encounter notes This section contains the clinical notes associated to the Encounter. Date/Time Encounter Note(s) Provider Source Dec 02, 2024 10:08 PM PHARMACY NOTE: LOCAL TITLE: V1 PHARMACY CUSTOMER CARE MEDICATION RENEWAL STANDARD TITLE: PHARMACY NOTE DATE OF NOTE: DEC 02, 2024@22:08 ENTRY DATE: DEC 02, 2024@22:08:32 AUTHOR: LATIA MEDINA I EXP COSIGNER: URGENCY: STATUS: COMPLETED Date: Nov Division: [facility] referred by Pharmacy Call Center for medication renewal: Non-controlled/maintenanc e medication Medications requested: [id number] KETOCONAZOLE 2% SHAMPOO Defer to primary care provider To be mailed . Please review and renew if appropriate. *This note was generated by [facility]/[place] [facility] Customer Care. If you have any questions or need assistance, do not contact this author. Please refer all questions to your local, on-site pharmacy departments. /esthela/ Latia Medina CPhT Photo Intern, [place]/Pharmacy Customer Care Signed: 12/02/2024 22:08 Receipt Acknowledged By: 12/05/2024 12:50 /es/ GILES COOPER NURSE PRACTITIONER 12/03/2024 12:30 /esthela/ Doris Mcnair RN [facility] overlocker LATIA MEDINA I CO [facility]
--- OUTSIDE RECORDS SUMMARY | 2025-01-04 13:50 | XMS_ITS ---
Author Name [facility] ([place]) [facility] Address [address] [place] [address] Care Team Providers Care Ergonomics Technician Name Role Phone GILES FUENTES Primary [...] CAREMARK PRESCRIPT ION SREEKANTH Sep 14, 2014 [id number] [phone] FANY LEMUS ON PATIENT CAREMARK PRESCRIPT ION SUSI ATKINSON Sep 14, 2014 [id number] [phone] FANY LEMUS ON PATIENT CAREMARK PRESCRIPT ION Sep 14, 2014 [id number] [phone] ALLAN,MYR ON PATIENT GEHA (SECONDARY ) PREFERRED PROVIDER ORGANIZAT ION (PPO) HIGH OPTIO N [facility] A&B Sep 14, 2005 [id number] ALLAN,MYR ON PATIENT GEHA (SECONDARY ) PREFERRED PROVIDER ORGANIZAT ION (PPO) GEHA CONNE CTION DENT Sep 14, 2005 [id number] ALLAN,MYR ON PATIENT GEHA FEHB PREFERRED PROVIDER ORGANIZAT ION (PPO) SUSI AL GOV Sep 14, 2005 [id number] ALTH [id number] ALLAN,MYR ON PATIENT GEHA FEHB PREFERRED PROVIDER ORGANIZAT ION (PPO) SUSI AL* Sep 14, 1989 [id number] ALTH [id number] ALLAN,MYR ON PATIENT GEHA-BEHAV [facility] GEHA HIGH OPTIO N Sep 14, 2021 [id number] ALLAN,MYR ON PATIENT MEDICARE (WNR) MEDICARE (M) PART A May 15, 2000 PART A [id number] ALLAN,MYR ON PATIENT MEDICARE (WNR) MEDICARE (M) PART B May 15, 2000 PART B [id number] ALLAN,MYR ON PATIENT MEDICARE (WNR) MEDICARE () PART A May 15, 2000 PART A [id number] [phone] ALLAN,MYR ON PATIENT MEDICARE (WNR) MEDICARE (M) PART B May 15, 2000 PART B [id number] ALLAN,MYR ON PATIENT MEDICARE (WNR) MEDICARE (M) PART A May 15, 2000 PART A [id number] ALLAN,MYR ON PATIENT MEDICARE (WNR) MEDICARE (M) PART B May 15, 2000 PART B [id number] ALLAN,MYR ON PATIENT MEDICARE (WNR) MEDICARE (M) PART A May 15, 2000 PART A [id number] FANY LEMUS ON PATIENT MEDICARE (WNR) MEDICARE (M) PART B May 15, 2000 PART B [id number] [id number] FANY LEMUS ON PATIENT Selected Encounter This section includes the information on record at AL for the Encounter. Date/Time Encounter Type Encounter Description Reason Provider Source Mar 31, 2024 11:00 AM OFFICE O/P EST HI 40 MIN LOW VISION CARE ICD-10-CM H54.8 Legal blindness, as defined in [place] ANGELIKA ANDRADE Verito Encounter Template Text not used by AL Assessments - Encounter Diagnoses This section includes the primary and secondary diagnoses documented for the Encounter. Date/Time Primary/Secondary Diagnosis Diagnosis Name Provider Source Apr 30, 2024 08:50 AM PRIMARY Legal blindness, as defined in [place] ANGELIKA ANDRADE [facility] Apr 30, 2024 08:50 AM SECONDARY Combined forms of age-related cataract, bilateral ANGELIKA ANDRADE [facility] Apr 30, 2024 08:50 AM SECONDARY Exudative age-rel mclr degn, bilateral, with inactive scar ANGELIKA ANDRADE [facility] Apr 30, 2024 08:50 AM SECONDARY Type 2 diabetes mellitus without complications ANGELIKA ANDRADE [facility] Plan of Treatment: Future Appointments (+ 6 months) and Future Tests (+/- 45 days) The Plan of Treatment section includes future care activities for the patient from all AL treatmentfacilities. This section includes future appointments and future orders which are active, pending or scheduled. Future Appointments This section includes appointments that were scheduled to occur 6 months from the date of the Encounter, up to a maximum of 20 appointments. The data comes from all AL treatment facilities. Appointment Date/Time Appointment Type Appointme nt Facility Name May 04, 2024 01:00 PM AMBULATORY - REHAB MEDICIN E [place] [facility] [place] [facility] Jun 03, 2024 11:30 AM AMBULATORY - MEDICINE [facility] Sep 26, 2024 10:00 AM [facility] [place] [facility] Social History: Smoking Status (Most current) and Tobacco Use (All prior to encounter date) This section includes the most current, and the historical, smoking and tobacco- related health factors from the AL facility where the Encounter took place. Current Smoking Status This section includes the most current smoking, or tobacco-related health factor, from the AL facility where the Encounter took place. Date/Time Current Smoking Status Comment Facil ity Sep 02, 2023 05:30 PM VA-TOBACCO QUIT 15 YRS OR MORE [facility] Tobacco Use History This section includes a history of the smoking, or tobacco-related health factors, that were collected on or before the date of the Encounter. The data comes from the AL facility where the Encounter took place. Date/Time Smoking Status/Tobacco Use Comment F acility Sep 02, 2023 05:30 PM VA-TOBACCO QUIT 15 YRS OR MORE [facility] [place] [facility] Apr 24, 2022 01:00 PM VA-TOBACCO FORMER USER [facility] [place] [facility] Apr 24, 2022 01:00 PM VA-TOBACCO QUIT 15 YRS OR MORE [facility] [facility] Dec 05, 2021 02:00 PM VA-TOBACCO USE DEC LINED TO ANSWER [facility] [place] [facility] Nov 24, 2021 04:05 PM VA-TOBACCO USE DEC LINED TO ANSWER [facility] [place] [facility] Sep 20, 2020 08:40 AM VA-TOBACCO [facility] Advance Directives: All historical and current Section Date Range: From patient's date of to the date document was created. This section includes ALL of a patient's completed or amended [place] Advance and Rescinded Directives. The entries below indicate that a directive exists for the patient, but an actual copy is not included with this document. The data comes from all AL facilities. Date Advance Directives Provider Source Nov 11, 2016 ADVANCE DIRECTIVE ELROY CHÁVEZ [facility] Jul 08, 2006 ADVANCE DIRECTIVE HCAPARRO DICK [facility] Encounter Notes: All associated encounter notes This section contains the clinical notes associated to the Encounter. Date/Time Encounter Note(s) Provider Source Mar 31, 2024 07:47 AM OPTOMETRY DIAGNOST IC STUDY NOTE: LOCAL TITLE: LOW VISION OPTOMETRY FOLLOW-UP STANDARD TITLE: OPTOMETRY DIAGNOSTIC STUDY NOTE DATE OF NOTE: MAR 31, 2024@07:47 ENTRY DATE: MAR 31, 2024@07:47:53 AUTHOR: ANGELIKA ANDRADE COSIGNER: URGENCY: STATUS: COMPLETED Ocular Diagnosis: (x) Legal blindness, as defined in [place] (ICD-10-CM H54.8) (x) Additional: Exudative ARMD,Left Eye w/ Inactive Scar (ICD-10-CM H35.3233) DM Type 2 w/o Complications (ICD-10-CM E11.9) Combined forms of age-related cataract, bilateral (ICD-10-CM H25.813) Appointment Information: (x) Nnln-hm-rred Verified two identifications: (x) Full name (x) [...] Outpatient Specialist (BROS) (x) Visual Impairment Services Attacher (VIST) () Other Ocular Diagnosis: (x) Legal blindness, as defined in [place] (ICD-10-CM H54.8) () Low Vision, Both Eyes (ICD-10-CM H54.2) () Unqualified visual loss, both eyes (ICD-10-CM H54.3) (x) Additional: see above Chief Complaint(s): 1. Blythe reports decrease in vision. Scheduled with Visual [...] today: (x) Low Vision Optometry (x) Blind Algebraist () Visual Impairment Services Attacher Financial co-pay () Yes (x) No Plan: Meet with providers as scheduled Assist as needed Proceed with Low Vision Evaluation including further training by BROS as indicated and current Case Management with VIST Mwec-ik-Erci Time documentation: Start time: 11:05am End time: 12:00pm Total time: 55 minutes minus Refraction time: (-) 5 min minus Special procedures time: (-) 0 min = 50 minutes total time spent with patient *Greater than 50% of the visit spent uyjo-kc-nycc with patient was used for patient education [...] potential device recommendations. Total time spent (not piqp-gs-vxso): 30 minutes Total Time (Direct + Non-Direct): 50 + 30 = 80 minutes Procedure Codes: Established Patient (1 time) 21902 Est Patient (40-54 minutes) Extended time Procedure [...] Time (List Separately in addition to Codes 92063, 47428 for Office or other Outpatient Evaluation and Management Services) (2 times) 78286 (70-84 minutes) Other: (1 time) 54024 Refraction (1 time) 40956 Team conference s patient by physician (30 min) Chief Complaint(s): 1. Low Vision History Review 2. Mrnm-zw-Qfxj Evaluation a. Habitual Rx c comments b. Visual Acuity c. Static Retinoscopy d. Subjective Refraction e. Final RX f. Near Evaluation: i. Portable Video Magnifier Trial: 3. Ocular Pathology Education 4. Final Recommendations 5. Future LVOD Appointments/RTC Instruction Provided: 1. Low Vision History Review Low Vision Evaluation for: SREEDHAR LEMUS, 88 year old MALE Examiner: Angelika Andrade, OD, FAAO Ocular Diagnosis: see above RONY: Location: 03[facility]24.24 [facility] (x)[facility] ()[facility] Low vision instructor: Brian CHAMBERLAIN Chief Complaint: Reports Dr. Garay discussed his cataracts again yesterday but feels he is doing well with his vision overall. Reports he is still going to his stamp club and verbalizes missing his original Amigo PVM, difficulty with many additional buttons of AmigoHD in past and currently must take stamps home and use CCTV or use strong illuminated HHM but difficulty remains. Originally asking for logging operations inspector for original amigo, no longer made and batteries also no longer made that were charged in device. Chronology of Vision Loss: see prior reports Adjustment to vision loss: gets frustrated about vision loss and/or blindness? 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 Pt ed to report these symptoms. No olfactory, auditory or gustatory sensation associated. 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 Under care of multiple providers ([facility] [id number]) R25.1 Tremor ([facility] 62032860) H40.20X0 Narrow angle glaucoma ([facility] 460708680) E11.9 Diabetes mellitus ([facility] 25841068) Z87.891 Ex-smoker ([facility] 5090244) I25.9 Chronic ischemic heart disease ([facility] 966650705) I25.10 Coronary artery disease ([facility] 86988475) H35.3230 Exudative age-related macular degeneration ([facility] 830673806) K21.9 Gastroesophageal reflux disease without esophagitis ([facility] 025334668) H91.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 Essential hypertension ([facility] 27737464) E78.5 Hyperlipidemia ([facility] 77573973) M19.91 Osteoarthritis ([facility] 507914561) J44.89 Chronic obstructive lung disease ([facility] 54484453) D07.5 Prostate cancer ([facility] 951035622) H54.8 Legal blindness ([facility] 00586327) Z86.11 H/O: tuberculosis ([facility] 764077544) Z77.090 Asbestosis ([facility] 49349393) Systemic Medications: Active Outpatient Medications (including Supplies): [...] Wear Spec.: How Old: 3 Where From: [facility] OD: +2.25-1.59i017 OS: +2.75-0.34d639 Description: SV Tint: Yellow #1 Subjective Comments: working well *Prior Tints: 80% Transmission Ayse 2. Reading Spec.: 3. Intermediate Spec.: How Old: 09/2019 Where From: [facility] OD: Blackened and Frosted OS: +4.75-0.80j413 Description: SV Tint: 80% Transmission Yellow Subjective Comments: working well per 4. Non-Illuminated HHM: 5. Illuminated HHM: Description: KRIS Ergo-Lux MP Mobil 28D How Old: 2018 Where From: [facility] Subjective Comments: had 7x/24D PowerMag HH bright white in 2018. Has a few at home. Has one he takes to his [employer] club but doesn't give the detail he wants to see. 6. Monocular/Binocular Telescopes: 7. Spectacle Mounted Telescopes: How Old: 11/2018 Where From: [facility] OD: Blackened and Frosted OS: +2.75-0.75d720 with 1.7 FDTS on-center Description: SMTS Tint: none Subjective Comments: does not recall device 8. Sunwear: 40% Transmission [place]/Ayse *Prior Tints: 9. Non-optical Devices: Brother Ink Cartridges Talking Atomic Watch Male Voice Black Hands 2023 Extra Large Print Calendar [place] Bump Dots (40 pcs.) 2022 Extra Large Print Calendar Bold content writer pens Clasp Band LV Talking Watch Dolomite Cane Mccullough-for support cane Dolimite Rollator Legacy (Standard Width, Handle Height 33 -37 ) autosqueeze eye drop Brother Ink Cartridges Talking Blood Pressure Monitor Olive Loom 2019 (Spectralmind/Mac) 3D Control SystemsO Computer Package With Windows 10 (nontouch screen) ZoomText-M/R ZoomText Large Print Keyboard - Yellow [place]/Black Lettering Expert Mouse Trackball LogicLight USB Keyboard Light - Black Talking Oral Medical Thermometer [place] [id number] Bluetooth Headphones (Black) autosqueeze eye drop autodrop eye drop iPhone XS (64GB Space Parks) (Verizon) Otterbox Defender Series Screenless Edition Case for iPhone XS - Black iPhone XS Screen Protector Glass Guardian Alert Lockbox Guardian Alert Plus [place] Bump Dots (24 pcs.) Innobella High Yield (XL Series) Color Ink Innobella High Yield (XL Series) Black Ink Mixed Dots 80 pcs. Talking Scale WCIB Aluminum Folding Cane Marshmallow Style Roller Tip, Slip-on Prodigy Voice Talking Glucometer Digit-Eyes Audio Scanner and Automotive Diagnostic Technician TRHEA Transformer HD/Wi-Fi Zoom Caps Keytop Enlargers (Black [place]/White Letter) MapHazardly Pro 9.7 Silver (32 GB Wi-Fi) ZoomText Keyboard MacCase Premium Leather Case for iPad Air (Black) Apple Lightning to USB Charge & Sync Cable (White, 3.25') ClearReader+ LG BUTTON AMPLIFIED PHONE WITH BACKTALK AND BRAILLE Scrip Talk Station [place] LOW VISION WRITING PAPER Talking Scale Tempo AI Razor Scanner for OCR Software 10. Other Spectacles or Devices: (x) Optivisor 2D Optivisor with 10D loupe and ava headlamp 5D Optivisor with 10D loupe 7D Optivisor () LuxoMag Lamp () Stand Magnifier (x) CCTV with/without OCR [place] 19 Acrobat (x) Portable Video Magnifier Amigo HD - found device but could not find logging operations inspector, will discuss with CINTIA Whalen () Head borne Video Magnifier () Other: ILLUMINATION: Indoors/Home: (x) Patient reports lighting in home is comfortable without issue Outdoors: (x) Patient reports vision best on overcast day MOBILITY: In Patient's Home: (x) Patient denies difficulty or recent falls Outdoors: (x) Patient denies difficulty or recent falls INTERESTS/HOBBIES: (x) Reading: using OCR more than CCTV these days (x) Intermediate Tasks: (x) Collections ([place]) Reports/Denies difficulty using current devices (x) Distance Viewing (television, theater, sports, etc.) (x) Television watching: reports he is sitting a bit too far away GOALS (PRIORITIZED): 1. Replacement charging cord for Amigo. No longer made. Would like option to take to [facility] if possible. 2. Dlez-so-Dbzt Evaluation a. Habitual Rx c comments: DVAcc: 03.24.[address] Lima OD: HM in temp field OSL 5/100+ DVAcc: LVOD 3.9.23 OD: +2.25-1.61s496 HM@1' 5 mod-full OS: +2.75-0.04j620 - 3 mod b. Visual acuity Feinbloom cc Eccentric View: Illumination: OD: HM@1' n/a full OS: +1 3 mod-full Comments: c. Static Retinoscopy OD: neutral OS: neutral d. Subjective Refraction OD: no change OS: no change e. Final RX VA: EV: Illum: OD: +2.25-1.76m195 HM@1' n/a full OS: +2.75-0.48q011 -+1 3 mod-full Comments: Patient educated extensively that [...] Explore 8 in office for purpose of [employer] but did not have stamps to evaluate. Blythe able to read newspaper in office and looked at photo in paper and feels level of detail and simplicity of 3 buttons will be very beneficial at [facility]. 3. Ocular Pathology Education: Patient educated at [...] BROLuda note for full details. 2. The has been provided large print contact information and is aware that he can contact the LVOD, VIST or BROS with any questions from todays lesson or about his vision loss. Comments: How does the patient/client best learn? (x) Observation (x) Repetition () Large Print Directions () Standard Print Directions (x) Audible Directions Does the patient/client have any cultural and denominational beliefs, emotional barriers, physical or cognitive limitations, and communication barriers which may impact his/her ability to learn? Barrier to Patient Education identified: None() Non-Serbian speaking() Cognitive () Hearing Impaired (x) Emotional [...] Education provided to: P Response to Education: ABBI, S[place], PI Zepeda Patient P Family F Significant Other SO Verbalizes Understanding VU Returns Demonstration RD Performs Independently PI Lacks Comprehension LC Refused Education RE Not Applicable NA Disclaimer: Because the acuities and bean in this evaluation were taken using special techniques and lighting NOT contained in the AL Physician Guide Disability Evaluation Examination, they CANNOT be used for rating purposes. Medication Reconciliation: Outpatient: Has the patient been taking medications as documented in the EMLR? YES: The patient has been taking medications as documented in the EMLR. Essential Medication List for Review used to complete this medication reconciliation. INCLUDED IN THIS LIST: Alphabetical list of active outpatient prescriptions dispensed from this AL (local) and dispensed from another [facility] or [facility] facility (remote) as well as inpatient [...] [facility] [place] [facility] SULFA DRUGS Med. Reconciliation (Tool #1) INCLUDED IN THIS LIST: Alphabetical list of active outpatient prescriptions dispensed from this AL (local) and dispensed from another AL or [facility] facility (remote) as well as inpatient orders (local pending and active), local clinic medications, locally documented non-VA medications, and local prescriptions that have or been discontinued in the past 90 days. Non-VA Meds Last Documented On: Dec 21, 2023 NOTE The display of VA prescriptions dispensed from another AL or [facility] facility (remote) is limited to active outpatient prescription entries matched to National Drug File at the originating site and may not include some items such as investigational drugs, compounds, etc. NOT INCLUDED IN THIS LIST: Medications self-entered by the patient into personal health records (i.e. [facility]) are NOT included in this list. Non-VA medications documented outside this AL, remote inpatient orders (regardless of status) and remote clinic medications are NOT included in this list. The patient and provider must always discuss medications the patient is taking, regardless of where the medication was dispensed or obtained. OUTPT ACETAMINOPHEN 500MG TAB (Status = Active) TAKE TWO TABLETS BY MOUTH THREE TIMES DAILY NEEDED FOR PAIN Rx# [id number] Last Released: 09/16/23 Qty/Days Supply: 200/34 Rx Expiration Date: 09/15/24 Refills Remainin Indication: FOR PAIN OUTPT ALOGLIPTIN 25MG TAB (Status = Active/Suspended) TAKE ONE TABLET BY MOUTH ONCE DAILY IN PLACE OF SITAGLIPTIN Rx# [id number] Last Released: 01/19/24 Qty/Days Supply: 90/ Rx Expiration Date: 11/06/24 Refills Remainin Indication: FOR TYPE 2 DIABETES MELLITUS OUTPT AMLODIPINE BESYLATE 10MG TAB (Status = Discontinued) TAKE ONE TABLET BY MOUTH ONCE DAILY FOR BLOOD PRESSURE/HEART, DO NOT TAKE WITH GRAPEFRUIT JUICE Rx# [id number] Last Released: 01/25/24 Qty/Days Supply: 90 Rx Expiration Date: 04/20/24 Refills Remainin OUTPT AMLODIPINE BESYLATE 10MG TAB (Status = Active/Suspended) TAKE ONE TABLET BY MOUTH ONCE DAILY FOR BLOOD PRESSURE/HEART, DO NOT TAKE WITH GRAPEFRUIT JUICE Rx# [id number] Last Released: Qty/Days Supply: 90 Rx Expiration Date: 03/30/25 Refills Remainin OUTPT ASPIRIN 81MG EC TAB (Status = Active) TAKE ONE TABLET BY MOUTH ONCE DAILY TO PREVENT STROKE/HEART ATTACK Rx# [id number] Last Released: 02/15/24 Qty/Days Supply: 120/90 Rx Expiration Date: 02/10/25 Refills Remainin Indication: FOR BLOOD CLOT PREVENTION FOLLOWING PCI OUTPT ATORVASTATIN CALCIUM 80MG TAB (Status = Active/Suspended) TAKE ONE TABLET BY MOUTH ONCE DAILY FOR CHOLESTEROL Rx# [id number] Last Released: 01/19/24 Qty/Days Supply: 90/ Rx Expiration Date: 10/01/24 Refills Remainin OUTPT BRIMONIDINE 0.2%/BRINZOLAMID 1% OPH SUSP (Status = Active) INSTILL 1 DROP INTO EACH EYE TWICE DAILY Rx# [id number] Last Released: 03/28/24 Qty/Days Supply: Rx Expiration Date: 11/26/24 Refills Remainin OUTPT CARVEDILOL 3.125MG TAB (Status = Active) TAKE ONE TABLET BY MOUTH TWICE DAILY FOR HIGH BLOOD PRESSURE Rx# [id number] Last Released: 03/09/24 Qty/Days Supply: 180/ Rx Expiration Date: 03/09/25 Refills Remainin Indication: FOR HIGH BLOOD PRESSURE OUTPT CHOLECALCIF 25MCG (D3-1,000UNIT) TAB (Status = Active) TAKE ONE TABLET BY MOUTH ONCE DAILY FOR VITAMIN SUPPLEMENTATION Rx# [id number] Last Released: 03/08/24 Qty/Days Supply: 90 Rx Expiration Date: 08/04/24 Refills Remainin OUTPT DOCUSATE NA 100MG CAP (Status = Active) TAKE ONE CAPSULE BY MOUTH TWICE DAILY NEEDED TO SOFTEN STOOL Rx# [id number] Last Released: 11/09/23 Qty/Days Supply: 100/50 Rx Expiration Date: 10/28/24 Refills Remainin Indication: FOR CONSTIPATION OUTPT EPLERENONE 25MG TAB (Status = Active/Suspended) TAKE ONE TABLET BY MOUTH ONCE DAILY FOR HIGH BLOOD PRESSURE Rx# [id number] Last Released: 02/10/24 Qty/Days Supply: 90 Rx Expiration Date: 09/15/24 Refills Remainin Indication: FOR HIGH BLOOD PRESSURE Non-VA FLUTICASONE/UMECLID/VILANT (TRELEGY 200) INHL,ORAL INHALE BY MOUTH ONCE DAILY OUTPT KETOCONAZOLE 2% SHAMPOO (Status = Active) SHAMPOO SMALL AMOUNT TOPICALLY ONCE DAILY Rx# [id number] Last Released: 11/09/23 Qty/Days Supply: 120/90 Rx Expiration Date: 10/28/24 Refills Remainin Indication: FOR FUNGAL INFECTION OF THE SKIN OUTPT LATANOPROST 0.005% OPH SOLN (Status = Discontinued) INSTILL 1 DROP INTO EACH EYE AT BEDTIME Rx# [id number] Last Released: 11/27/23 Qty/Days Supply: 12.5/ Rx Expiration Date: 11/26/24 Refills Remainin OUTPT LATANOPROST 0.005% OPH SOLN (Status = Active/Suspended) INSTILL 1 DROP INTO EACH EYE AT BEDTIME Rx# [id number] Last Released: QtDays Supply: Rx Expiration Date: 01/11/25 Refills Remainin OUTPT LOSARTAN 100MG TAB (Status = Active) TAKE ONE TABLET BY MOUTH ONCE DAILY FOR BLOOD PRESSURE/HEART Rx# [id number] Last Released: 03/15/24 Qty/Days Supply: Rx Expiration Date: 10/01/24 Refills Remainin Indication: FOR HIGH BLOOD PRESSURE OUTPT MULTIVIT/OPHTH AREDS2/LUTE/ZEAX CAP/TAB (Status = Discontinued) TAKE 1 CAPSULE BY MOUTH TWICE DAILY IN THE MORNING AND EVENING, WITH FOOD Rx# [id number] Last Released: 03/08/24 Qty/Days Supply: 120/60 Rx Expiration Date: 03/25/24 Refills Remainin OUTPT MULTIVIT/OPHTH AREDS2/LUTE/ZEAX CAP/TAB (Status = Active/Suspended) TAKE 1 CAPSULE BY MOUTH TWICE DAILY IN THE MORNING AND EVENING, WITH FOOD Rx# [id number] Last Released: QtDays Supply: 120/60 Rx Expiration Date: 03/30/25 Refills Remainin Non-VA OXYGEN MISCELLANEOUS USE 2 LITERS VIA NC AT NIGHT DIRECTED NEEDED Medication prescribed by Non-VA provider. OUTPT POLYETHYLENE GLYCOL 3350 ORAL PWDR (Status = ) TAKE 17 GRAMS(FILL CAP TO 17GM LINE) BY MOUTH ONCE DAILY NEEDED FOR CONSTIPATION [MIX WITH 4 TO 8OZ. OF [place]] Rx# [id number] Last Released: 11/09/23 Qty/Days Supply: Rx Expiration Date: 01/26/24 Refills Remainin Indication: FOR CONSTIPATION OUTPT PRIMIDONE 50MG TAB (Status = Active) TAKE ONE TABLET BY MOUTH THREE TIMES A DAY Rx# [id number] Last Released: 03/15/24 Qty/Days Supply: Rx Expiration Date: 10/01/24 Refills Remainin OUTPT TIMOLOL MALEATE 0.5% OPH GEL (Status = Active) APPLY 1 DROP INTO EACH EYE TWICE DAILY Rx# [id number] Last Released: 03/28/24 Qty/Days Supply: Rx Expiration Date: 07/14/24 Refills Remainin OUTPT TIMOLOL MALEATE 0.5% OPH SOLN (Status = Active) INSTILL 1 DROP INTO EACH EYE TWICE DAILY Rx# [id number] Last Released: 03/09/24 Qty/Days Supply: Rx Expiration Date: 11/26/24 Refills Remainin OUTPT TORSEMIDE 20MG TAB (Status = Discontinued) TAKE ONE TABLET BY MOUTH ONCE DAILY Rx# [id number] Last Released: 01/19/24 Qty/Days Supply: Rx Expiration Date: 07/20/24 Refills Remainin OUTPT TORSEMIDE 20MG TAB (Status = Active) TAKE ONE TABLET BY MOUTH ONCE DAILY Rx# [id number] Last Released: 03/15/24 Qty/Days Supply: Rx Expiration Date: 02/10/25 Refills Remainin SUPPLIES OUTPT PRODIGY NO CODE (GLUCOSE) TEST STRIP (Status = ) USE 1 STRIP TO TEST BLOOD SUGARS TWICE A WEEK NEEDED Rx# [id number] Last Released: 03/12/23 Qty/Days Supply: Rx Expiration Date: 03/03/24 Refills Remainin PHARMACY TERMS AND POSSIBLE PATIENT ACTIONS INPT = [place] inpatient order IV = [place] intravenous medication OUTPT = [place] outpatient prescription PHARMACY POSSIBLE PATIENT TERMS EXPLANATION [...] more of this picked up at the [place] pharmacy medication. window. A prescription which is [...] the [facility]. Or, it may be an myiy-smx-hmegurt (OTC), herbal, dietary supplements or sample medication. [...] An active prescription that is Contact your [place] not scheduled to be filled yet. pharmacy if you need You should receive it before this medication now. you run out. (x) Printed Medication Reconciliation List Offered and Declined by () Medication Reconciliation List Printed for at Exam () Optometry HT Please Print and Mail Copy of Medication Reconciliation List () AMSA Please Print and Mail Copy of Medication Reconciliation List /es/ ANGELIKA ANDRADE OD CHUTE PULLER Signed: 04/01/2024 10:25 ANGELIKA ANDRADE [facility]
--- OUTSIDE RECORDS SUMMARY | 2025-01-04 13:50 | XMS_ITS | Encounter Summary ---
Author Name [facility] [place] [place] [facility] [place] Address [address] [place] [id number] Care Team Providers Care Bacteriologist Pharmaceutical Name Role Phone GILES FUENTES Primary Care [...] Policy Mccullough's Name Patient's Relationship to Policy Mcucllough CAREMARK PRESCRIPT ION GEKEO Sep 14, 2014 [id number] [phone] FANY LEMUS ON PATIENT CAREMARK PRESCRIPT ION SUSI ATKINSON Sep 14, 2014 [id number] FANY LEMUS ON PATIENT CAREMARK PRESCRIPT ION Sep 14, 2014 [id number] ALLAN,MYR ON PATIENT GEHA (SECONDARY ) PREFERRED PROVIDER ORGANIZAT ION (PPO) HIGH OPTIO N MCR A&B Sep 14, 2005 [id number] ALLAN,MYR ON PATIENT GEHA (SECONDARY ) PREFERRED PROVIDER ORGANIZAT ION (PPO) GEHA CONNE CTION DENT Sep 14, 2005 [id number] ALLAN,MYR ON PATIENT GEHA FEHB PREFERRED PROVIDER ORGANIZAT ION (PPO) SUSI AL GOV Sep 14, 2005 [id number] [id number] ALLAN,MYR ON PATIENT GEHA FEHB PREFERRED PROVIDER ORGANIZAT ION (PPO) SUSI AL* Sep 14, 1989 [id number] ALTH [id number] ALLAN,MYR ON PATIENT GEHA-BEHAV [facility] GEHA HIGH OPTIO N Sep 14, 2021 [id number] ALLAN,MYR ON PATIENT MEDICARE (WNR) MEDICARE (M) PART A May 15, 2000 PART A [id number] ALLAN,MYR ON PATIENT MEDICARE (WNR) MEDICARE (M) PART B May 15, 2000 PART B [id number] ALLAN,MYR ON PATIENT MEDICARE (WNR) MEDICARE (M) PART A May 15, 2000 PART A [id number] ALLAN,MYR ON PATIENT MEDICARE (WNR) MEDICARE (M) PART B May 15, 2000 PART B [id number] ALLAN,MYR ON PATIENT MEDICARE (WNR) MEDICARE (M) PART B May 15, 2000 PART B [id number] [phone] ALLAN,MYR ON PATIENT MEDICARE (WNR) MEDICARE (M) PART A May 15, 2000 PART A [id number] [phone] ALLAN,MYR ON PATIENT MEDICARE (WNR) MEDICARE (M) PART A May 15, 2000 PART A [id number] FANY LEMUS ON PATIENT MEDICARE (WNR) MEDICARE (M) PART B May 15, 2000 PART B [id number] ALLAN,FANY ON PATIENT Selected Encounter This section includes the information on record at [place] for the Encounter. Date/Time Encounter Type Encounter Description Reason Provider Source Jun 07, 2024 03:27 PM QNHP OL DIG ASSMT&MGMT 21+ HBPC - CLINICAL PHARMACIST ICD-10-CM Z79.899 Other intermediate manager (current) drug therapy JOSE DE JESUS MONTGOMERY [facility] Encounter Template Text not used by [place] Assessments - Encounter Diagnoses This section includes the primary and secondary diagnoses documented for the Encounter. Date/Time Primary/Secondary Diagnosis Diagnosis Name Provider Source Jun 22, 2024 05:01 PM PRIMARY Other fdc (current) drug therapy JOSE DE JESUS MONTGOMERY [facility] Plan of Treatment: Future Appointments (+ 6 months) and Future Tests (+/- 45 days) The Plan of Treatment section includes future care activities for the patient from all [place] treatmentfacilities. This section includes future appointments and [...] 10:00 AM AMBULATORY - REHAB MEDICIN E [facility] Oct 21, 2024 11:30 AM AMBULATORY - MEDICINE [facility] Social History: Smoking Status (Most current) [...] 02, 2023 05:30 PM VA-TOBACCO FORMER USER [facility] Tobacco Use History This section includes a history of the smoking, or tobacco-related health factors, that were collected on or before the date of the Encounter. The data comes from the [place] facility where the Encounter took place. Date/Time Smoking Status/Tobacco Use Comment F acility Sep 02, 2023 05:30 PM VA-TOBACCO QUIT 15 YRS OR MORE [place] [facility] [place] [facility] Apr 24, 2022 01:00 PM VA-TOBACCO FORMER USER [place] [facility] [place] [facility] Apr 24, 2022 01:00 PM VA-TOBACCO QUIT 15 YRS OR MORE [place] [facility] [place] [facility] Dec 05, 2021 02:00 PM VA-TOBACCO USE DEC LINED TO ANSWER [place] [facility] [place] [facility] Nov 24, 2021 04:05 PM VA-TOBACCO USE DEC LINED TO ANSWER [place] [facility] [place] [facility] Sep 20, 2020 08:40 AM VA-TOBACCO NEVER USED [facility] Advance Directives: All historical and [...] ADVANCE DIRECTIVE ELROY CHÁVEZ [place] [facility] Jul 08, 2006 ADVANCE DIRECTIVE CHAPARRO DICK [facility] Encounter Notes: All associated encounter notes This [...] new onset bradycardia. Thanks! /esthela/ GILES FUENTES [facility] NURSE PRACTITIONER Signed: 06/10/2024 08:48 Receipt Acknowledged By: 06/10/2024 09:03 /esthela/ Adalgisa Pina RN [facility] casting machine set up operator --- Original Document --- 06/07/24 [facility] PHARMACY MEDICATION REVIEW: Leonel Lemus is an [...] noted - Per addendum to the 04/04/24 [facility] Pharmacy Med Review note, is taking torsemide as directed. Alogliptin discontinued given A1c well within individualized goal. underwent PET scan per Urology recommendations given elevated PSA showing localized prostate cancer. Plan to monitor area with no chemo/radiation at this time. - Dacono underwent circumcision procedure on 05/30/24 with recommendations [...] (~90-day supply) 7. Health Maintenance: > Immunizations: Dacono is due for the following immunizations per [...] 9. Continue to review quarterly. Recommendations: For [facility] IDT: - Dacono recently had 1 lower HR of 54 bpm and was started on carvedilol in February 2024. Please continue to monitor vitals during future visits. May have to consider discontinuation of beta cassia if becomes consistently bradycardic. For Optometry: - Dacono has active Rxs for both timolol eye [...] 45 min /es/ JOSE DE JESUS MONTGOMERY [facility] Clinical Pharmacist Practitioner Signed: 06/07/2024 16:34 Receipt Acknowledged By: 06/10/2024 08:48 /es/ GILES FUENTES [facility] NURSE PRACTITIONER 06/08/2024 12:21 /es/ Adalgisa Pina RN [facility] casting machine set up operator 06/07/2024 ADDENDUM STATUS: COMPLETED For Optometry: - has active Rxs for both timolol eye drops and timolol eye gel to be administered BID. Please clarify whether he should discontinue 1 of these agents moving forward. Of note, appears that the drops were recommended by a non-VA provider. /raleigh MONTGOMERY [facility] Clinical Pharmacist Practitioner Signed: 06/07/2024 16:38 Receipt Acknowledged By: 06/08/2024 06:50 /raleigh Lima OD CHIEF OF OPTOMETRY 06/08/2024 ADDENDUM STATUS: COMPLETED Timolol .5% GFS 1 drop twice a day each eye d/d now. /raleigh Lima OD CHIEF OF OPTOMETRY Signed: 06/08/2024 06:51 GINAGILESBRITTANY WALTER [place] [facility] Jun 07, 2024 04:35 PM ADDENDUM: LOCAL TITLE: Addendum STANDARD TITLE: ADDENDUM DATE OF NOTE: JUN 07, 2024@16:35:10 ENTRY DATE: JUN 07, 2024@16:35:11 AUTHOR: JOSE DE JESUS MONTGOMERY EXP COSIGNER: URGENCY: STATUS: COMPLETED For Optometry: - Dacono has active Rxs for both timolol eye drops and timolol eye gel to be administered BID. Please clarify whether he should discontinue 1 of these agents moving forward. Of note, appears that the drops were recommended by a non-VA provider. /raleigh MONTGOMERY [facility] Clinical Pharmacist Practitioner Signed: 06/07/2024 16:38 Receipt Acknowledged By: 06/08/2024 06:50 /raleigh Lima OD CHIEF OF OPTOMETRY --- Original Document --- 06/07/24 [facility] PHARMACY MEDICATION REVIEW: Leonel Lemus is an [...] noted - Per addendum to the 04/04/24 [facility] Pharmacy Med Review note, andrés is taking torsemide as directed. Alogliptin discontinued given A1c well within individualized goal. Dacono underwent PET scan per Urology recommendations given elevated PSA showing localized prostate cancer. Plan to monitor area with no chemo/radiation at this time. - Dacono underwent circumcision procedure on 05/30/24 with recommendations [...] (~90-day supply) 7. Health Maintenance: > Immunizations: Dacono is due for the following immunizations per [...] 9. Continue to review quarterly. Recommendations: For [facility] IDT: - Andrés recently had 1 lower HR of 54 bpm and was started on carvedilol in February 2024. Please continue to monitor vitals during future visits. May have to consider discontinuation of beta cassia if becomes consistently bradycardic. For Optometry: - Dacono has active Rxs for both timolol eye [...] 45 min /esthela/ JOSE DE JESUS MONTGOMERY [facility] Clinical Pharmacist Practitioner Signed: 06/07/2024 16:34 Receipt Acknowledged By: * AWAITING SIGNATURE * GILES FUENTES * AWAITING SIGNATURE * ADALGISA PINA SARAH J [place] [facility] Jun 07, 2024 03:27 PM [facility] MEDICATION MGT NOTE: LOCAL TITLE: [facility] PHARMACY MEDICATION REVIEW STANDARD TITLE: [facility] MEDICATION MGT NOTE DATE OF NOTE: JUN 07, 2024@15:27 ENTRY DATE: JUN 07, 2024@15:28:01 AUTHOR: JOSE DE JESUS MONTGOMERY EXP COSIGNER: URGENCY: STATUS: COMPLETED [facility] PHARMACY MEDICATION REVIEW Has ADDENDA [...] noted - Per addendum to the 04/04/24 [facility] Pharmacy Med Review note, is taking torsemide as directed. Alogliptin discontinued given A1c well within individualized goal. Dacono underwent PET scan per Urology recommendations given elevated PSA showing localized prostate cancer. Plan to monitor area with no chemo/radiation at this time. - Dacono underwent circumcision procedure on 05/30/24 with recommendations [...] (~90-day supply) 7. Health Maintenance: > Immunizations: Dacono is due for the following immunizations per [...] if becomes consistently bradycardic. For Optometry: - D[place]o has active Rxs for both timolol eye [...] patient. Time Spent: 45 min /raleigh MONTGOMERY [facility] Clinical Pharmacist Practitioner Signed: 06/07/2024 16:34 Receipt Acknowledged By: 06/10/2024 08:48 /esthela/ GILES FUENTES [facility] NURSE PRACTITIONER 06/08/2024 12:21 /esthela/ Adalgisa Pina RN [facility] casting machine set up operator 06/07/2024 ADDENDUM STATUS: COMPLETED For Optometry: - Andrés has active Rxs for both timolol eye drops and timolol eye gel to be administered BID. Please clarify whether he should discontinue 1 of these agents moving forward. Of note, appears that the drops were recommended by a non-VA provider. /raleigh MONTGOMERY [facility] Clinical Pharmacist Practitioner Signed: 06/07/2024 16:38 Receipt [...] his new onset bradycardia. Thanks! /raleigh FUENTES [facility] NURSE PRACTITIONER Signed: 06/10/2024 08:48 Receipt Acknowledged By: * AWAITING SIGNATURE * ADALGISA PINA SARAH J [place] [facility]
--- OUTSIDE RECORDS SUMMARY | 2025-01-04 13:50 | XMS_ITS | Encounter Summary ---
Author Name Department of [place] Affairs ([place]) Organization [facility] Address [address] [place] [id number] Care Team Providers Care Practical Nursing Teacher Name Role Phone GILES FUENTES Primary Care [...] CAREMARK PRESCRIPT ION GEHA Sep 14, 2014 [id number] FANY LEMUS ON PATIENT CAREMARK PRESCRIPT ION SUSI ATKINSON Sep 14, 2014 [id number] [phone] FANY LEMUS ON PATIENT CAREMARK PRESCRIPT ION Sep 14, 2014 [id number] ALLAN,MYR ON PATIENT GEHA (SECONDARY ) PREFERRED PROVIDER ORGANIZAT ION (PPO) HIGH OPTIO N MCR A&B Sep 14, 2005 [id number] ALLAN,MYR ON PATIENT GEHA (SECONDARY ) PREFERRED PROVIDER ORGANIZAT ION (PPO) GEHA CONNE CTION DENT Sep 14, 2005 [id number] ALLAN,MYR ON PATIENT GEHA FEHB PREFERRED PROVIDER ORGANIZAT ION (PPO) SUSI AL GOV Sep 14, 2005 [id number] ALTH [id number] ALLAN,MYR ON PATIENT GEHA FEHB PREFERRED PROVIDER ORGANIZAT ION (PPO) SUSI AL* Sep 14, 1989 [id number] ALTH [id number] ALLAN,MYR ON PATIENT GEHA-BEHAV [facility] GEHA HIGH OPTIO N Sep 14, 2021 [id number] ALLAN,MYR ON PATIENT MEDICARE (WNR) MEDICARE (M) PART A May 15, 2000 PART A [id number] ALLAN,MYR ON PATIENT MEDICARE (WNR) MEDICARE () PART B May 15, 2000 PART B [id number] 00 ALLAN,MYR ON PATIENT MEDICARE (WNR) MEDICARE () PART A May 15, 2000 PART A [id number] [id number] 00 ALLAN,MYR ON PATIENT MEDICARE (WNR) MEDICARE (M) PART B May 15, 2000 PART B [id number] [id number] 00 ALLAN,MYR ON PATIENT MEDICARE (WNR) MEDICARE (M) PART A May 15, 2000 PART A [id number] [id number] [phone] ALLAN,MYR ON PATIENT MEDICARE (WNR) MEDICARE (M) PART B May 15, 2000 PART B [id number] [id number] [phone] ALLAN,MYR ON PATIENT MEDICARE (WNR) MEDICARE (M) PART A May 15, 2000 PART A [id number] [id number] [phone] FANY LEMUS ON PATIENT MEDICARE (WNR) MEDICARE (M) PART B May 15, 2000 PART B [id number] [id number] FANY LEMUS ON PATIENT Selected Encounter This section includes the information on record at [place] for the Encounter. 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 Date/Time Primary/Secondary Diagnosis Diagnosis Name Provider Source Aug 18, 2024 04:01 PM PRIMARY Problem related to unspecified psychosocial circumstances Robin NORTON [facility] Plan of Treatment: Future Appointments (+ 6 months) and Future Tests (+/- 45 days) The Plan of Treatment section includes future care activities for the patient [facility] This section includes future appointments and future orders which are active, pending or scheduled. Future Appointments This section includes appointments that were scheduled to occur 6 months from the date of the Encounter, up to a maximum of 20 appointments. The data comes from all [facility]. Appointment Date/Time Appointment Type Appointme nt Facility Name Sep 26, 2024 10:00 AM AMBULATORY - REHAB MEDICIN E [facility] Oct 21, 2024 11:30 AM AMBULATORY - [...] of theEncounter. The data comes from all [place] treatment [facility]. Test Date/Time Test Type Test Details Facility Name Aug 30, 2024 12:00 AM Laboratory - Chemi stry Order BASIC METABOLIC PANEL (non-fasting) BLOOD (SST-SERUM) [facility] Aug 30, 2024 12:00 AM Laboratory - Chemi stry Order BNP (Natriuretic Peptide Brain) [facility] Social History: Smoking Status (Most current) and [...] 02, 2023 05:30 PM [facility]CO [facility] Tobacco Use History This section includes a history of the smoking, or tobacco-related health factors, that were collected on or before the date of the Encounter. The data comes from the [place] facility where the Encounter took place. Date/Time Smoking Status/Tobacco Use Comment F acility Sep 02, 2023 05:30 PM VA-TOBACCO QUIT 15 YRS OR MORE [facility] Apr 24, 2022 01:00 PM VA-TOBACCO [facility] [place] [facility] Apr 24, 2022 01:00 PM VA-TOBACCO QUIT 15 YRS OR MORE [place] [facility] [place] [facility] Dec 05, 2021 02:00 PM VA-TOBACCO USE DEC LINED TO ANSWER [facility] Nov 24, 2021 04:05 PM VA-TOBACCO USE DEC LINED TO ANSWER [place] [facility] [facility] Sep 20, 2020 08:40 AM VA-TOBACCO [facility] Advance Directives: All historical and current [...] Nov 11, 2016 ADVANCE DIRECTIVE ELROY KING [place] [facility] [place] [facility] Jul 08, 2006 ADVANCE DIRECTIVE CHAPARRO DICK [facility] Encounter Notes: All associated encounter notes This section contains the clinical notes associated to the Encounter. Date/Time Encounter Note(s) Provider Source Aug 18, 2024 11:00 AM [facility] NOTE: LOCAL TITLE: [facility] SOCIAL WORK ASSESSMENT STANDARD TITLE: [facility] NOTE DATE OF NOTE: AUG 18, 2024@11:00 ENTRY DATE: AUG 18, 2024@12:50 AUTHOR: BILLIE NORTONIGNER: URGENCY: STATUS: COMPLETED WHAT MATTERS What Matters was addressed at this visit. Comment: To wake up in the morning. MENTATION Depression was addressed at this visit. Comment: Negative PHQ-2. MENTATION Dementia was addressed at this visit. Comment: [facility] Exam score of 4 falling WNL. Short term memory impairment reported by and his partner. MENTATION Delirium was addressed at this visit. Comment: No s/s of delirium observed. 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 [employer] Combat: NO POW: NO Eligibility: [place] LESS THAN 50% Status: VERIFIED Means Test: NO LONGER REQUIRED NOK: KELY KING Relation: PARTNER [place] [facility] [place], [place] Service Connected Disabilities with % Eligibility: [place] LESS THAN 50% VERIFIED Total S/C %: 10 ASBESTOSIS 0% S/C IMPAIRED HEARING 0% S/C TINNITUS 10% S/C Other persons present: Partner Kely Length of visit: 60 minutes CURRENT LIVING ARRANGEMENTS [ ] Own Home [ ] Apartment/rented house [ ] Intermediate Home [ ] Mcfp [ ] Assisted Living [X] Home of [...] Direct [ ]Avoidant SUPPORT SYSTEMS Informal supports: [place]' partner assists with IADLs, transportation, medical management, and bill paying. She is his POA. Her granddaughter also assists sometimes with eye drops and IADLs. He is independent with his medication and ADLs. His middle son Cameron takes care of the yard for them and plows the driveway when they have a moderate-severe snowfall. He lives in [place] on the [facility]. His other son Mario lives with Cameron as he's epileptic. The two help one another out. He also has a son Bakari that recently moved from [facility] to [place]. Formal supports: No informal supports at this time. [ ]Homemaker/Home Health Aide [ ]Inpatient/in-home respite [ ]Adult Day Health Care [ ]VNA/Skilled Home Health Care [ ]Elder Services [ ]Meals on Wheels [ ]Transportation [ ]Personal Emergency Response System [ ]Home Oxygen [ ]Other: OXYGEN SAFETY [ ]N/A [X]No unsafe behavior observed [ ]Unsafe behavior observed ([facility] Home Oxygen Safety Checklist must be completed if unsafe behavior observed) SUBSTANCE USE Alcohol use: Occasional drink--last one was for his birthday in May. Nicotine use: None Other: Is interested in substance abuse/smoking cessation treatment? [ ]Yes [X]No PSYCHIATRIC HISTORY: No history of mental health issues or treatment reported. CRIMINAL HISTORY: Do you have a legal history(arrests,incarcerati ons,probation,parole,divorc e,child custody issues)? No I/ADL FUNCTIONAL ASSESSMENT Bender Index of Baker in Activities of Daily Living: Bathing: [X] [...] contracted Home Health Aide Services?No Agency Providing SUPPLY CHAIN PROCUREMENT MANAGER Services Are you satisfied with your personal care provided by the agency? Do you feel safe with the personal care services provided by the agency? FINANCIAL STATUS Income sources: [ ] VA pension [ ] Intermediate [X] [place] compensation [ ] [place] Annuity [ ] Aid & Attendance [ ] [address] [X] SS Intermediate [ ] SS Disability [X] Private pension [...] no , were advanced directives discussed with [place]? [ ] Yes [ ] No Legal guardian? [ ] Yes [X] No Power of Conference Services Manager? [X] Yes [ ] No Conservator/Fiduciary? [ ] Yes [X] No Is there evidence of abuse or neglect? 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 [...] by Vet Further cognitive evaluation requested by [place]: [ ] Yes [X] No The Blessed Orientation Memory Concentration (BOMC) Test: SCORE 0 1.) What year is it now? 0 2.) What month is it now? 0 3.) About what time is it? 0 4.) Count backwards 20 to 1. 4 5.) Say the months in reverse order (start with August) 0 6.) Repeat the memory phrase. (1)David (1)Dylon (1) (1)Felicitas (1)[place] Score & Interpretation: 4 -- WNL Some short term memory impairment reported by [place] and partner. CAREGIVER STATUS: Does the have a caregiver who provides substantive assistance on an ongoing basis for the in the 's place of residence? (not including paid professional caregivers) YES = [place] Interview: Caregiver Name: Kely Fernando 1. Do [...] her granddaughter if needed. SOCIAL WORK SUMMARY: /Caregiver has been provided with information regarding: VA AND COMMUNITY RESOURCES [ ] VA Home Health Aide Services [ ] Elder Care Services [ ] Inpatient/In-Home Respite [ ] Adult Day Health [ ] Hospice [ ] Transportation [ ] Guardian Alert/Personal Emergency Response System [X] Poacher Operator Care: [ ] Eligible for VA contracted care home. [X] Not eligible for VA contracted care home. Advised remote computer terminal operator care would fall to private pay or Medicaid. [ ] [facility] [ ] Housing: [ ] Assisted Living [ ] Independent Living [ ] Other: [ ] Meals on Wheels [ ] Medicaid/Medicare/Shine for private insurance options [ ] VA Benefits/Compensation [ ] Caregiver support group [ ] Outpatient individual therapy [ ] Other: FASHION SUPERVISOR PLANNING [X] Patient to stay at home with assistance. [ ] Patient willing to consider SNF. [ ] Declined to discuss correction planning. ALTERNATIVE PLACEMENT/EMERGENCY PLAN [ ] VA Contract Fci Respite [ ] In-home Respite [X] Alternative family members providing care [ ] can remain home safely short-term. [ ] [place] is independent and does not require a caregiver. [ ] [place]/Caregiver declined. BRANDT will continue education placement plans for urgent/emergent care on an annual basis. ASSESSMENT NARRATIVE: Mr. Lemus is an 89 year old [place] who lives with his partner Kely in her home in [place]. [place]' partner assists with IADLs, transportation, medical management, and bill paying. She is his POA. Her granddaughter also assists [place] sometimes with eye drops and IADLs. He is independent with his medication and ADLs. His middle son Cameron takes care of the yard for them and plows the driveway when they have a moderate-severe snowfall. He lives in [place] the [facility]. His other son Mario lives with Cameron as he's epileptic. The two help one another out. He also has a son Bakari that recently moved from [facility] to [place]. 's score improved from last year's [facility] Exam--from a 6 to a 4--both WNL. He and his partner report he does have some short term memory impairment. He is not concerned about it and partner helps manage his medical and financial affairs. The [facility] in [place] assisted with disability claim for asbestos. He had a recent Comp & Pen but an exam couldn't be done since he used oxygen the night before. No one told him this would be an issue and it's necessary he is on it since his SAT falls down to 70%. They should be hearing from [facility] in about a month per partner. Partner and [place] deny any major changes from last year and indicated there are no unmet social work needs at this time. Partner has this commercial insurance underwriter's number and stated she will call once they hear back from [facility] regarding his disability claim for asbestos. SOCIAL WORK PLAN OF CARE: --Provide psychosocial support as needed. --Next annual assessment to be conducted August 2025 unless otherwise indicated. Advance Directive Screen MH AD: Patient has an Advance Directive on file at this [facility]. No updates are needed at this time. The patient received education about Advance Directives and written notification of his/her rights. Suicide Screen: C-SSRS Screening Rhea-Suicide Severity Rating Scale (C-SSRS Screener) 1. Over [...] Another adult present Homelessness/Food Insecurity Screen: The reports the following: Within the past 12 months, you worried whether your food would run out before you got money to buy more. Never true Within the past 12 months, the food you bought just didn't last and you didn't have money to get more. Never true /esthela/ SHANI FOSTER [facility] Crankshaft Grinder Signed: 08/18/2024 16:02 BILLIE NORTONRRobin [facility]
--- OUTSIDE RECORDS SUMMARY | 2025-01-04 13:50 | XMS_ITS | Encounter Summary ---
Author Name [facility] ([place] Organization Department [facility] ([place]) Address [address] [place] [address] Care Team Providers Care Haunted History Tour Guide Name Role Phone GILES FUENTES Primary Care [...] CAREMARK PRESCRIPT ION GEHA Sep 14, 2014 [id number] [phone] FANY LEMUS ON PATIENT CAREMARK PRESCRIPT ION SUSI AL EMPLO [place] [facility] Sep 14, 2014 [id number] [phone] FANY LEMUS ON PATIENT CAREMARK PRESCRIPT ION Sep 14, 2014 [id number] FANY LEMUS ON PATIENT GEHA (SECONDARY ) PREFERRED PROVIDER ORGANIZAT ION (PPO) HIGH OPTIO N MCR A&B Sep 14, 2005 [id number] ALLAN,MYR ON PATIENT GEHA (SECONDARY ) PREFERRED PROVIDER ORGANIZAT ION (PPO) GEHA CONNE CTION DENT Sep 14, 2005 [id number] ALLAN,MYR ON PATIENT GEHA FEHB PREFERRED PROVIDER ORGANIZAT ION (PPO) SUSI AL GOV Sep 14, 2005 [id number] ALTH [id number] ALLAN,MYR ON PATIENT GEHA FEHB PREFERRED PROVIDER ORGANIZAT ION (PPO) SUSI AL* Sep 14, 1989 [id number] ALTH [id number] ALLAN,MYR ON PATIENT GEHA-BEHAV [facility] GEHA HIGH OPTIO N Sep 14, 2021 [id number] ALLAN,MYR ON PATIENT MEDICARE (WNR) MEDICARE (M) PART A May 15, 2000 PART A [id number] [id number] 00 ALLAN,MYR ON PATIENT MEDICARE (WNR) MEDICARE (M) PART B May 15, 2000 PART B [id number] 00 ALLAN,MYR ON PATIENT MEDICARE (WNR) MEDICARE (M) PART A May 15, 2000 PART A [id number] [id number] 00 ALLAN,MYR ON PATIENT MEDICARE (WNR) MEDICARE (M) PART B May 15, 2000 PART B [id number] [id number] ALLAN,MYR ON PATIENT MEDICARE (WNR) MEDICARE (M) PART B May 15, 2000 PART B [id number] [id number] ALLAN,MYR ON PATIENT MEDICARE (WNR) MEDICARE (M) PART A May 15, 2000 PART A [id number] [id number] [phone] ALLAN,MYR ON PATIENT MEDICARE (WNR) MEDICARE (M) PART A May 15, 2000 PART A [id number] [id number] ALLAN,MYR ON PATIENT MEDICARE (WNR) MEDICARE (M) PART B May 15, 2000 PART B [id number] [id number] FANY LEMUS ON PATIENT Selected Encounter This section includes the information on record at [place] for the Encounter. Date/Time Encounter Type Encounter Description Reason Pro vider Source IHE Encounter Template Text not used by [place] Advance Directives: All historical and current Section [...] Nov 11, 2016 ADVANCE DIRECTIVE ELROY CHÁVEZ [place] [facility] Jul 08, 2006 ADVANCE DIRECTIVE CHAPARRO DICK [facility]
--- OUTSIDE RECORDS SUMMARY | 2025-01-04 13:51 | XMS_ITS | Encounter Summary ---
Author Name Department of [place] Organization [facility] Address [address] [place] [id number] Care Team Providers Care Auth Specialist Name Role Phone GILES FUENTES Primary [...] CAREMARK PRESCRIPT ION [place] Sep 14, 2014 [id number] FANY LEMUS ON PATIENT CAREMARK PRESCRIPT ION SUSI ATKINSON Sep 14, 2014 [id number] [phone] FANY LEMUS ON PATIENT CAREMARK PRESCRIPT ION Sep 14, 2014 [id number] ALLAN,MYR ON PATIENT GEHA (SECONDARY ) PREFERRED PROVIDER ORGANIZAT ION (PPO) HIGH OPTIO N MCR A&B Sep 14, 2005 [id number] [phone] ALLAN,MYR ON PATIENT GEHA (SECONDARY ) PREFERRED PROVIDER ORGANIZAT ION (PPO) GEHA CONNE CTION DENT Sep 14, 2005 [id number] ALLAN,MYR ON PATIENT GEHA FEHB PREFERRED PROVIDER ORGANIZAT ION (PPO) SUSI AL GOV Sep 14, 2005 [id number] ALTH [id number] ALLAN,MYR ON PATIENT GEHA FEHB PREFERRED PROVIDER ORGANIZAT ION (PPO) SUSI AL* Sep 14, 1989 [id number] ALTH [id number] ALLAN,MYR ON PATIENT GEHA-BEHAV [facility] GEHA HIGH OPTIO N Sep 14, 2021 [id number] [phone] ALLAN,MYR ON PATIENT MEDICARE (WNR) MEDICARE (M) PART A May 15, 2000 PART A [id number] 00 ALLAN,MYR ON PATIENT MEDICARE (WNR) MEDICARE (M) PART B May 15, 2000 PART B [id number] ALLAN,MYR ON PATIENT MEDICARE (WNR) MEDICARE (M) PART A May 15, 2000 PART A [id number] [id number] 00 ALLAN,MYR ON PATIENT MEDICARE (WNR) MEDICARE (M) PART B May 15, 2000 PART B [id number] [id number] 00 ALLAN,MYR ON PATIENT MEDICARE (WNR) MEDICARE (M) PART A May 15, 2000 PART A [id number] QP12 [phone] ALLAN,MYR ON PATIENT MEDICARE (WNR) MEDICARE (M) PART B May 15, 2000 PART B [id number] [id number] ALLAN,MYR ON PATIENT MEDICARE (WNR) MEDICARE (M) PART A May 15, 2000 PART A [id number] [id number] [phone] FANY LEMUS ON PATIENT MEDICARE (WNR) MEDICARE (M) PART B May 15, 2000 PART B [id number] [id number] FANY LEMUS ON PATIENT Selected Encounter This section includes the information on record at [place] for the Encounter. 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 Date/Time Primary/Secondary Diagnosis Diagnosis Name Provider Source Apr 22, 2024 11:35 AM PRIMARY Anatomical narrow angle, bilateral [place] [facility] Plan of Treatment: Future Appointments (+ [...] 11:00 AM [facility] Mar 31, 2024 01:00 PM [facility] May 04, 2024 01:00 PM [facility] [place] [facility] Jun 03, 2024 11:30 AM AMBULATORY - MEDICINE [place] Vital Signs: All taken on the encounter date This section contains inpatient and outpatient Vital Signs collected on the date of the Encounter. Date/Time Temperature Pulse Blood Pressure Respiratory Rate SP02 Pain Height Weight Body Mass Index Source Mar 24, 2024 11:00 AM 97.1 94 118/70 18 92 0 197.6 28 [facility] Social History: Smoking Status (Most current) [...] 02, 2023 05:30 PM [facility]AC[facility] Tobacco Use History This section includes a history of the smoking, or tobacco-related health factors, that were collected on or before the date of the Encounter. The data comes from the [place] facility where the Encounter took place. Date/Time Smoking Status/Tobacco Use Comment F acility Sep 02, 2023 05:30 PM VA-TOBACCO QUIT 15 YRS OR MORE [place] [facility] Apr 24, 2022 01:00 PM VA-TOBACCO FORMER USER [place] [facility] [facility] Apr 24, 2022 01:00 PM VA-TOBACCO QUIT 15 YRS OR MORE [facility] Dec 05, 2021 02:00 PM VA-TOBACCO USE DEC LINED TO ANSWER [place] [facility] [facility] Nov 24, 2021 04:05 PM VA-TOBACCO USE DEC LINED TO ANSWER [place] [facility] [facility] Sep 20, 2020 08:40 AM [facility]AC[facility] Advance Directives: All historical and current [...] ADVANCE DIRECTIVE ELROY CHÁVEZ [place] [facility] Jul 08, 2006 [facility] Encounter Notes: All associated encounter notes [...] angles. He is followed by a community j2ee architect who is indicating he does not feel he requires laser iridotomy's at present. Keep scheduled follow-up with Dr. Garay. /esthela/ Raj Lima OD CHIEF OF OPTOMETRY Signed: 03/28/2024 07:58 TIKA DAVIES [facility]
--- OUTSIDE RECORDS SUMMARY | 2025-01-04 13:51 | XMS_ITS ---
Author Name [facility] Address [address] [place] [address] Care Team Providers Care Cosmetologist Apprentice Name Role Phone GILES FUENTES Primary Care [...] CAREMARK PRESCRIPT ION SREEKANTH Sep 14, 2014 [id number] FANY LEMUS ON PATIENT CAREMARK PRESCRIPT ION SUSI ATKINSON Sep 14, 2014 [id number] [phone] FANY LEMUS ON PATIENT CAREMARK PRESCRIPT ION Sep 14, 2014 [id number] [phone] ALLAN,MYR ON PATIENT GEHA (SECONDARY ) PREFERRED PROVIDER ORGANIZAT ION (PPO) HIGH OPTIO N [facility] A&B Sep 14, 2005 [id number] ALLAN,MYR ON PATIENT GEHA (SECONDARY ) PREFERRED PROVIDER ORGANIZAT ION (PPO) GEHA CONNE CTION DENT Sep 14, 2005 [id number] ALLAN,MYR ON PATIENT GEHA FEHB PREFERRED PROVIDER ORGANIZAT ION (PPO) SUSI AL GOV Sep 14, 2005 [id number] [id number] ALLAN,MYR ON PATIENT GEHA FEHB PREFERRED PROVIDER ORGANIZAT ION (PPO) SUSI AL* Sep 14, 1989 [id number] ALTH [id number] ALLAN,MYR ON PATIENT GEHA-BEHAV [facility] GEHA HIGH OPTIO N Sep 14, 2021 [id number] ALLAN,MYR ON PATIENT MEDICARE (WNR) MEDICARE (M) PART A May 15, 2000 PART A [id number] ALLAN,MYR ON PATIENT MEDICARE (WNR) MEDICARE (M) PART B May 15, 2000 PART B [id number] ALLAN,MYR ON PATIENT MEDICARE (WNR) MEDICARE (M) PART A May 15, 2000 PART A [id number] [phone] ALLAN,MYR ON PATIENT MEDICARE (WNR) MEDICARE (M) PART B May 15, 2000 PART B [id number] ALLAN,MYR ON PATIENT MEDICARE (WNR) MEDICARE (M) PART A May 15, 2000 PART A [id number] ALLAN,MYR ON PATIENT MEDICARE (WNR) MEDICARE (M) PART B May 15, 2000 PART B [id number] [phone] ALLAN,MYR ON PATIENT MEDICARE (WNR) MEDICARE (M) PART A May 15, 2000 PART A [id number] [phone] FANY LEMUS ON PATIENT MEDICARE (WNR) MEDICARE (M) PART B May 15, 2000 PART B [id number] FANY LEMUS ON PATIENT Selected Encounter This section includes the information on record at [place] for the Encounter. Date/Time Encounter Type Encounter Description Reason Pro vider Source Jun 21, 2024 12:40 PM Outpatient Encounter ADMIN PAT ACTIVTIES (MASNONCT) IHE Encounter Template Text not used by [place] Plan of Treatment: Future Appointments (+ 6 months) and Future Tests (+/- 45 days) The Plan of Treatment section includes future care activities for the patient from all [place] treatmentfacilities. This section includes future appointments and future orders which are active, pending or scheduled. Future Appointments This section includes appointments that were scheduled to occur 6 months from the date of the Encounter, up to a maximum of 20 appointments. The data comes from all [place] treatment facilities. Appointment Date/Time Appointment Type Appointme nt Facility Name Sep 26, 2024 10:00 AM AMBULATORY - REHAB MEDICIN E [facility] Oct 21, 2024 11:30 AM AMBULATORY - MEDICINE [facility] Social History: Smoking Status (Most current) and Tobacco Use (All prior to encounter date) This section includes the most current, and the historical, smoking and tobacco- related health factors from the [place] facility where the Encounter took place. Current Smoking Status This section includes the most current smoking, or tobacco-related health factor, from the [place] facility where the Encounter took place. Date/Time Current Smoking Status Comment Facil ity Sep 02, 2023 05:30 PM VA-TOBACCO FORMER USER [facility] Tobacco Use History This section includes a history of the smoking, or tobacco-related health factors, that were collected on or before the date of the Encounter. The data comes from the [place] facility where the Encounter took place. Date/Time Smoking Status/Tobacco Use Comment F acility Sep 02, 2023 05:30 PM [place]-TOBACCO QUIT 15 YRS OR MORE [facility] [place] [facility] Apr 24, 2022 01:00 PM [facility] Apr 24, 2022 01:00 PM [place]-TOBACCO QUIT 15 YRS OR MORE [facility] Dec 05, 2021 02:00 PM VA-TOBACCO USE DEC [facility] Nov 24, 2021 04:05 PM VA-TOBACCO USE DEC [facility] Sep 20, 2020 08:40 AM VA-TOBACCO NEVER USED [facility] Advance Directives: All historical and current Section Date Range: From patient's date of to the date document was created. This section includes ALL of a patient's completed or amended [place] Advance and Rescinded Directives. The entries below indicate that a directive exists for the patient, but an actual copy is not included with this document. The data comes from all [place] facilities. Date Advance Directives Provider Source Nov 11, 2016 ADVANCE DIRECTIVE ELROY [facility]VEZ [facility] Jul 08, 2006 ADVANCE DIRECTIVE CHAPARRO DICK [facility] Encounter Notes: All associated encounter notes [...] care /esthela/ THANIA ABBASI Signed: 06/21/2024 12:43 THANIA ABBASI [facility]
--- OUTSIDE RECORDS SUMMARY | 2025-01-04 13:51 | XMS_ITS | Encounter Summary ---
Author Name [facility] ([place] Organization [facility] Address [address] [place] [address] Care Team Providers Care [employer] Person Name Role Phone GILES FUENTES Primary Care [...] CAREMARK PRESCRIPT ION GEHA Sep 14, 2014 [id number] [phone] FANY LEMUS ON PATIENT CAREMARK PRESCRIPT ION SUSI AL NAVEENO ONDINA TEIXEIRAA Sep 14, 2014 [id number] [phone] FANY LEMUS ON PATIENT CAREMARK PRESCRIPT ION Sep 14, 2014 [phone] FANY LEMUS ON PATIENT GEHA (SECONDARY ) PREFERRED PROVIDER ORGANIZAT ION (PPO) HIGH OPTIO N MCR A&B Sep 14, 2005 [id number] ALLAN,MYR ON PATIENT GEHA (SECONDARY ) PREFERRED PROVIDER ORGANIZAT ION (PPO) GEHA CONNE CTION DENT Sep 14, 2005 [id number] ALLAN,MYR ON PATIENT GEHA FEHB PREFERRED PROVIDER ORGANIZAT ION (PPO) SUSI AL GOV Sep 14, 2005 [id number] ALTH [id number] ALLAN,MYR ON PATIENT GEHA FEHB PREFERRED PROVIDER ORGANIZAT ION (PPO) SUSI AL* Sep 14, 1989 [id number] ALTH [id number] ALLAN,MYR ON PATIENT GEHA-BEHAV [facility] GEHA HIGH OPTIO N Sep 14, 2021 [id number] [phone] ALLAN,MYR ON PATIENT MEDICARE (WNR) MEDICARE (M) PART A May 15, 2000 PART A [id number] ALLAN,MYR ON PATIENT MEDICARE (WNR) MEDICARE (M) PART B May 15, 2000 PART B [id number] ALLAN,MYR ON PATIENT MEDICARE (WNR) MEDICARE (M) PART A May 15, 2000 PART A [id number] ALLAN,MYR ON PATIENT MEDICARE (WNR) MEDICARE (M) PART B May 15, 2000 PART B [id number] ALLAN,MYR ON PATIENT MEDICARE (WNR) MEDICARE (M) PART A May 15, 2000 PART A [id number] ALLAN,MYR ON PATIENT MEDICARE (WNR) MEDICARE (M) PART B May 15, 2000 PART B [id number] ALLAN,MYR ON PATIENT MEDICARE (WNR) MEDICARE (M) PART A May 15, 2000 PART A [id number] ALLAN,MYR ON PATIENT MEDICARE (WNR) MEDICARE (M) PART B May 15, 2000 PART B [id number] FANY LEMUS ON PATIENT Selected Encounter This section includes the information on record at [place] for the Encounter. Date/Time Encounter Type Encounter Description Reason Provider Source Oct 21, 2024 11:30 AM OFFICE O/P EST MOD 30 MIN PODIATRY ICD-10-CM L60.3 Nail dystrophy YULISA AGUIAR Verito Encounter Template Text not used by [place] Assessments - Encounter Diagnoses This section includes [...] care activities for the patient from all [place] treatmentfacilities. This section includes future appointments and future orders which are active, pending or scheduled. Future Appointments This section includes appointments that were scheduled to occur 6 months from the date of the Encounter, up to a maximum of 20 appointments. The data comes from all [place] treatment facilities. Appointment Date/Time Appointment Type Appointme nt Facility Name Feb 24, 2025 11:30 AM AMBULATORY - MEDICINE [facility] Mar 23, 2025 11:00 AM [facility] [place] [facility] Mar 23, 2025 12:00 PM AMBULATORY [facility] [place] [facility] Apr 13, 2025 02:30 PM [facility] Active, Pending, and Scheduled Orders This section includes a listing of several types of active, pending, and scheduled orders, including clinic medications orders, diagnostic test orders, procedure orders and consult orders; where the start date of the order is 45 days before the date of the Encounter or 45 days after the date of theEncounter. The data comes from all [place] treatment facilities. Test Date/Time Test Type Test Details Facility Name Oct 17, 2024 08:00 AM Laboratory - Chemistry Order HEMOGLOBIN A1C PANEL BLOOD (LAV-BLOOD) SP [facility] Lab Results: +/- 30 days of the encounter This section includes the Chemistry and Hematology Lab Results on record with [place] for the patient. Radiology Reports and Pathology Reports are provided separately, in subsequent sections. Lab Results This section contains the Chemistry/Hematology Results that were resulted 30 days before or 30 daysafter the date of the Encounter. Date/Time Source Result Type Result - Unit Interpretation Reference Range Specimen Type Comment Oct 21, 2024 11:05 AM [facility] VITAMIN D (25-OH) SERUM Specimen Type: SERUM No comment entered. Ordering Provider: GILES FUENTES Report Released Date/Time: Sep 02, 2024 08:56 AM Reporting Lab: [address] [address] Performing Lab: [address] [address] VITAMIN D (25-OH) 39 ng/mL 20-50 Oct 21, 2024 11:05 AM [facility] PTH INTACT SERUM Specimen Type: SERUM No comment entered. Ordering Provider: GILES FUENTES Report Released Date/Time: Sep 02, 2024 08:56 AM Reporting Lab: [address] [address] Performing Lab: [address] [address] PTH INTACT 77.4 pg/mL H 8.7-77.1 Oct 21, 2024 11:05 AM [facility] MICROALBUMIN CREATININE RATIO PANEL URINE Spe cimen Type: URINE No comment entered. Ordering Provider: GILES FUENTES Report Released Date/Time: Sep 02, 2024 08:56 AM Reporting Lab: [address] [address] Performing Lab: [facility] [address] [facility] [address] MICROALBUMIN/CREATININE RATIO 11.9 mg/g 0-29.9 MICROALBUMIN,QUANTITATIVE 2.4 mg/dL RR U NAVAIL CREATININE URINE 202.37 mg/dL Oct 21, 2024 11:05 AM [facility] LIVER FUNCTION SERUM Specimen Type: SERUM No comment entered. Ordering Provider: GILES FUENTES Report Released Date/Time: Sep 02, 2024 08:56 AM Reporting Lab: [facility] [address] [facility] [address] Performing Lab: [address] [address] PROTEIN,TOTAL 7.8 g/dL 6.0-8.3 ALBUMIN 3.9 g/dL 3.5-5.0 ALKALINE PHOSPHATASE 160 U/L H 40-150 AST 22 U/L 5-34 ALT 28 U/L BILIRUBIN, TOTAL 0.8 mg/dL 0.2-1.2 Oct 21, 2024 11:05 AM [facility] BASIC METABOLIC PANEL (non-fasting) SERUM Spe cimen Type: SERUM No comment entered. Ordering Provider: GILES FUENTES Report Released Date/Time: Sep 02, 2024 08:56 AM Reporting Lab: [address] [address] Performing Lab: [address] [address] UREA NITROGEN 32 mg/dL H 7-25 GLUCOSE 122 mg/dL H 65-100 SODIUM 140 mmol/L 135-145 POTASSIUM 4.9 mmol/L 3.5-5.0 CHLORIDE 104 mmol/L 100-110 CO2 27 meq/L 20-30 CREATININE, Serum 1.06 mg/dL 0.50-1.40 eGFR(CKD-EPI 2020) 67 mL/min >60 Oct 21, 2024 11:05 AM [facility] LIPID PANEL, NON FASTING SERUM Specimen Type: SERUM No comment entered. Ordering Provider: GILES FUENTES Report Released Date/Time: Sep 02, 2024 08:58 AM Reporting Lab: [facility] [address] [facility] [address] Performing Lab: [facility] [address] [address] CHOLESTEROL 139 mg/dL TRIGLYCERIDE 129 mg/dL 0-150 LDL calculated 69 mg/dL 0-129 CHOL/HDL 3.2 HDL CHOLESTEROL 44 mg/dL 40-60 Oct 21, 2024 11:05 AM [facility] CBC BLOOD Specimen Type: BLOOD No comment entered. Ordering Provider: GILES FUENTES Report Released Date/Time: Sep 02, 2024 08:56 AM Reporting [facility]: [facility] [address] [address] Performing Lab: [address] [address] WBC 8.46 10*3/uL 4.50-11.00 RBC 4.86 10*6/uL 4.23-5.66 HGB 14.9 g/dL 12.8-17 HCT 45.7 39.2-50.4 MCV 94.0 fL 82-99 MCHC 32.6 g/dL 30.8-35.1 PLT 180 10*3/uL 140-360 RDW-CV 12.9 12.0-16.0 MCH 30.7 pg 26.2-32.6 Oct 21, 2024 11:05 AM [facility] GAMMA-GTP SERUM Specimen Type: SERUM No comment entered. Ordering Provider: GILES FUENTES Report Released Date/Time: Oct 21, 2024 03:59 PM Reporting Lab: [address] [address] Performing Lab: [facility] [address] [address] GAMMA-GTP 116 U/L H 10-65 Oct 12, 2024 01:30 PM [facility] PSA SERUM Specimen Type: SERUM No comment entered. Ordering Provider: GILES FUENTES Report Released Date/Time: Oct 12, 2024 01:21 PM Reporting Lab: [facility] [address] [facility] [address] Performing Lab: [facility] [address] [facility] [address] PSA 36.05 ng/mL H 0.00-4.00 Social History: Smoking Status (Most current) and Tobacco Use (All prior to encounter date) This section includes the most current, and the historical, smoking and tobacco- related health factors from the [place] facility where the Encounter took place. Current Smoking Status This section includes the most current smoking, or tobacco-related health factor, from the [place] facility where the Encounter took place. Date/Time Current Smoking Status Comment Facil ity Aug 11, 2018 11:[facility] Tobacco Use History This section includes a history of the smoking, or tobacco-related health factors, that were collected on or before the date of the Encounter. The data comes from the [place] facility where the Encounter took place. Date/Time Smoking Status/Tobacco Use Comment F acility Aug 11, 2018 11:06 AM [place]-TOBACCO QUIT 15 YRS OR MORE [facility] January 27, 2018 10:21 AM LIFETIME NON-TOBACCO USER [facility] Nov 10, 2016 10:18 AM QUIT TOBACCO USE > 7 YEARS AGO quit 20 years ago [facility] Sep 10, 2015 10:20 AM QUIT TOBACCO USE > 7 YEARS AGO [facility] Dec 08, 2005 02:29 PM QUIT TOBACCO USE > 7 YEARS AGO HX of tobacco use for approx 40 yrs. [facility] Advance Directives: All historical and current Section Date Range: From patient's date of to the date document was created. This section includes ALL of a patient's completed or amended [place] Advance and Rescinded Directives. The entries below indicate that a directive exists for the patient, but an actual copy is not included with this document. The data comes from all [facility]. Date Advance Directives Provider Source Nov 11, 2016 ADVANCE DIRECTIVE ELROY CHÁVEZ [facility] Jul 08, 2006 ADVANCE DIRECTIVE CHAPARRO DICK [facility] Encounter Notes: All associated encounter notes This section contains the clinical notes associated to the Encounter. Date/Time Encounter Note(s) Provider Source Oct 21, 2024 12:01 PM PODIATRY NOTE: LOCAL TITLE: PODIATRY PAVE FOOT EXAM STANDARD TITLE: PODIATRY NOTE DATE OF NOTE: OCT 21, 2024@12:01 ENTRY DATE: OCT 21, 2024@12:01:04 AUTHOR: YULISA AGUIAR COSIGNER: URGENCY: STATUS: COMPLETED PAVE FOOT EXAM [...] Yes Patient/caregiver has difficulty examining feet: No /es/ YULISA AGUIAR DPM FIELD ARTILLERY CREWMEMBER Signed: 10/21/2024 12:01 YULISA AGUIARFIELD Oct 21, 2024 09:24 AM PODIATRY NOTE: LOCAL TITLE: PODIATRY NOTE STANDARD TITLE: PODIATRY NOTE DATE OF NOTE: OCT 21, 2024@09:24 ENTRY DATE: OCT 21, 2024@09:24:53 AUTHOR: YULISA AGUIAR EXP COSIGNER: URGENCY: STATUS: COMPLETED NOTE: HAS RECEIVED BOTH COVID VACCINE DOSES + 4 BOOSTERS AT [facility] LAST SEEN FOR TREATMENT: 06/03/2024 HPI: Pt. [...] present physical-medical status. Protective sensation utilizing a Bonaparte-Negrita lOg monofilament is 10/10 bilateral. *NOTE: *YEARLY [...] of active outpatient prescriptions dispensed from this [place] (local) and dispensed from another [place] or [facility] facility (remote) as well as [...] next appointment, whether with a VA or non-[place] provider. JLV Link Data on this list may not be complete. Please check JLV. Allergies/ADRs (Tool #5) FACILITY ALLERGY/ADR -------- [facility] [place] [facility] INFLUENZA [facility] SULFA DRUGS Med Recon NoGlossary (Tool #1) INCLUDED IN THIS LIST: Alphabetical list of active outpatient prescriptions dispensed from this [place] (local) and dispensed from another [place] or [facility] facility (remote) as well as inpatient orders (local pending and active), local clinic medications, locally documented non-VA medications, and local prescriptions that have or been discontinued in the past 90 days. Non-VA Meds Last Documented On: Dec 21, 2023 NOTE The display of VA prescriptions dispensed from another [place] or [facility] facility (remote) is limited to active outpatient prescription entries matched to National Drug File at the originating site and may not include some items such as investigational drugs, compounds, etc. NOT INCLUDED IN THIS LIST: Medications self-entered by the patient into personal health records (i.e. [employer]) are NOT included in this list. Non-VA medications documented outside this [place], remote inpatient orders (regardless of status) and remote clinic medications are NOT included in this list. The patient and provider must always discuss medications the patient is taking, regardless of where the medication was dispensed or obtained. OUTPT ACETAMINOPHEN 500MG TAB (Status = ) TAKE TWO TABLETS BY MOUTH THREE TIMES DAILY NEEDED FOR PAIN Rx# [id number] Last Released: 06/23/24 Qty/Days Supply: 200/34 Rx Expiration Date: 09/15/24 Refills Remainin Indication: FOR PAIN OUTPT ALBUTEROL 90MCG (CFC-F) 200D ORAL INHL (Status = Active) INHALE 1 TO 2 PUFFS BY MOUTH FOUR TIMES DAILY NEEDED FOR BRONCHOSPASM Rx# [id number] Last Released: 09/01/24 Qty/Days Supply: Rx Expiration Date: 09/01/25 Refills Remainin Indication: FOR BRONCHOSPASM OUTPT AMLODIPINE BESYLATE 10MG TAB (Status = Active) TAKE ONE TABLET BY MOUTH ONCE DAILY FOR BLOOD PRESSURE/HEART, DO NOT TAKE WITH GRAPEFRUIT JUICE Rx# [id number] Last Released: 09/28/24 Qty/Days Supply: Rx Expiration Date: 03/30/25 Refills Remainin OUTPT ASPIRIN 81MG EC TAB (Status = Active) TAKE ONE TABLET BY MOUTH ONCE DAILY TO PREVENT STROKE/HEART ATTACK Rx# [id number] Last Released: 07/26/24 Qty/Days Supply: Rx Expiration Date: 02/10/25 Refills Remainin Indication: FOR BLOOD CLOT PREVENTION FOLLOWING PCI OUTPT ATORVASTATIN CALCIUM 80MG TAB (Status = Discontinued) TAKE ONE TABLET BY MOUTH ONCE DAILY FOR CHOLESTEROL Rx# [id number] Last Released: 06/30/24 Qty/Days Supply: Rx Expiration Date: 10/01/24 Refills Remainin OUTPT ATORVASTATIN CALCIUM 80MG TAB (Status = Active) TAKE ONE TABLET BY MOUTH ONCE DAILY FOR CHOLESTEROL Rx# [id number] Last Released: 09/28/24 Qty/Days Supply: Rx Expiration Date: 08/31/25 Refills Remainin OUTPT BREZTRI 160/9/4.8MCG/ACT 120D ORAL INHL (Status = Active) INHALE 2 INHALATIONS BY MOUTH TWICE DAILY FOR BRONCHOSPASM PREVENTION WITH COPD -RINSE MOUTH AFTER USE Rx# [id number] Last Released: 09/08/24 Qty/Days Supply: Rx Expiration Date: 09/03/25 Refills Remainin Indication: FOR BRONCHOSPASM PREVENTION WITH COPD OUTPT BRIMONIDINE 0.2%/BRINZOLAMID 1% OPH SUSP (Status = Discontinued) INSTILL 1 DROP INTO EACH EYE TWICE DAILY Rx# [id number] Last Released: 07/18/24 Qty/Days Supply: Rx Expiration Date: 11/26/24 Refills Remainin OUTPT BRIMONIDINE 0.2%/BRINZOLAMID 1% OPH SUSP (Status = Active/Suspended) INSTILL 1 DROP INTO EACH EYE TWICE DAILY Rx# [id number] Last Released: 10/05/24 Qty/Days Supply: 05/13 Rx Expiration Date: 10/06/25 Refills Remainin OUTPT CARVEDILOL 3.125MG TAB (Status = Discontinued) TAKE ONE TABLET BY MOUTH TWICE DAILY FOR HIGH BLOOD PRESSURE Rx# [id number] Last Released: 05/23/24 Qty/Days Supply: Rx Expiration Date: 03/09/25 Refills Remainin Indication: FOR HIGH BLOOD PRESSURE OUTPT CARVEDILOL 3.125MG TAB (Status = Active) TAKE ONE TABLET BY MOUTH TWICE DAILY FOR HIGH BLOOD PRESSURE Rx# [id number] Last Released: 08/22/24 Qty/Days Supply: 180/ Rx Expiration Date: 08/19/25 Refills Remainin Indication: FOR HIGH BLOOD PRESSURE OUTPT CHOLECALCIF 25MCG (D3-1,000UNIT) TAB (Status = Discontinued) TAKE ONE TABLET BY MOUTH ONCE DAILY FOR VITAMIN SUPPLEMENTATION Rx# [id number] Last Released: 05/23/24 Qty/Days Supply: Rx Expiration Date: 08/04/24 Refills Remainin OUTPT CHOLECALCIF 25MCG (D3-1,000UNIT) TAB (Status = Active) TAKE ONE TABLET BY MOUTH ONCE DAILY FOR VITAMIN SUPPLEMENTATION Rx# [id number] Last Released: 08/15/24 Qty/Days Supply: Rx Expiration Date: 08/16/25 Refills Remainin OUTPT DOCUSATE NA 100MG CAP (Status = Active) TAKE ONE CAPSULE BY MOUTH TWICE DAILY NEEDED TO SOFTEN STOOL Rx# [id number] Last Released: 11/09/23 Qty/Days Supply: 100/50 Rx Expiration Date: 10/28/24 Refills Remainin Indication: FOR CONSTIPATION OUTPT EPLERENONE 25MG TAB (Status = Discontinued) TAKE ONE TABLET BY MOUTH ONCE DAILY FOR HIGH BLOOD PRESSURE Rx# [id number] Last Released: 08/04/24 Qty/Days Supply: 90 Rx Expiration Date: 09/15/24 Refills Remainin Indication: FOR HIGH BLOOD PRESSURE OUTPT EPLERENONE 25MG TAB (Status = Active/Suspended) TAKE ONE TABLET BY MOUTH ONCE DAILY FOR HIGH BLOOD PRESSURE Rx# [id number] Last Released: Qt Supply: Rx Expiration Date: 08/31/25 Refills Remainin Indication: FOR HIGH BLOOD PRESSURE OUTPT HYDROPHILIC (EQV AQUAPHOR) TOP OINT (Status = ) APPLY LIBERAL AMOUNT TOPICALLY ONCE DAILY NEEDED FOR SKIN PROTECTION Rx# [id number] Last Released: 05/23/24 Qty/Days Supply: 454/90 Rx Expiration Date: 08/16/24 Refills Remainin Indication: FOR SKIN PROTECTION OUTPT KETOCONAZOLE 2% CREAM (Status = Active) APPLY A THIN LAYER TOPICALLY TWICE DAILY NEEDED FOR SEBORRHEIC DERMATITIS Rx# [id number] Last Released: Qty/Days Supply: 60 Rx Expiration Date: 09/20/25 Refills Remainin Indication: FOR SEBORRHEIC DERMATITIS OUTPT KETOCONAZOLE 2% SHAMPOO (Status = Active) SHAMPOO SMALL AMOUNT TOPICALLY ONCE DAILY Rx# [id number] Last Released: 08/30/24 Qty/Days Supply: 120/90 Rx Expiration Date: 10/28/24 Refills Remainin Indication: FOR FUNGAL INFECTION OF THE SKIN OUTPT LATANOPROST 0.005% OPH SOLN (Status = Discontinued) INSTILL 1 DROP INTO EACH EYE AT BEDTIME Rx# [id number] Last Released: 08/30/24 Qty/Days Supply: 7. Rx Expiration Date: 01/11/25 Refills Remainin OUTPT LATANOPROST 0.005% OPH SOLN (Status = Active) INSTILL 1 DROP INTO EACH EYE AT BEDTIME Rx# [id number] Last Released: 10/06/24 Qty/Days Supply: 2 Rx Expiration Date: 10/06/25 Refills Remainin OUTPT LOSARTAN 100MG TAB (Status = Discontinued) TAKE ONE TABLET BY MOUTH ONCE DAILY FOR BLOOD PRESSURE/HEART Rx# [id number] Last Released: 06/23/24 Qty/Days Supply: 90/ Rx Expiration Date: 10/01/24 Refills Remainin Indication: FOR HIGH BLOOD PRESSURE OUTPT LOSARTAN 100MG TAB (Status = Active) TAKE ONE TABLET BY MOUTH ONCE DAILY FOR BLOOD PRESSURE/HEART Rx# [id number] Last Released: 09/13/24 Qty/Days Supply: 90/90 Rx Expiration Date: 08/31/25 Refills Remainin Indication: FOR HIGH BLOOD PRESSURE OUTPT MULTIVIT/OPHTH AREDS2/LUTE/ZEAX CAP/TAB (Status = Active) TAKE 1 CAPSULE BY MOUTH TWICE DAILY IN THE MORNING AND EVENING, WITH FOOD Rx# [id number] Last Released: 10/10/24 Qty/Days Supply: 120/60 Rx Expiration Date: 03/30/25 Refills Remainin Non-VA OXYGEN MISCELLANEOUS USE 2 LITERS VIA NC AT NIGHT DIRECTED NEEDED Medication prescribed by Non-VA provider. OUTPT PRIMIDONE 50MG TAB (Status = Discontinued) TAKE ONE TABLET BY MOUTH THREE TIMES A DAY Rx# [id number] Last Released: 06/28/24 Qty/Days Supply: Rx Expiration Date: 10/01/24 Refills Remainin OUTPT PRIMIDONE 50MG TAB (Status = Active) TAKE ONE TABLET BY MOUTH THREE TIMES A DAY Rx# [id number] Last Released: 09/13/24 Qty/Days Supply: Rx Expiration Date: 08/31/25 Refills Remainin OUTPT TIMOLOL MALEATE 0.5% OPH SOLN (Status = Discontinued) INSTILL 1 DROP INTO EACH EYE TWICE DAILY Rx# [id number] Last Released: 09/01/24 Qty/Days Supply: Rx Expiration Date: 09/01/25 Refills Remainin OUTPT TIMOLOL MALEATE 0.5% OPH SOLN (Status = Active) INSTILL 1 DROP INTO EACH EYE TWICE DAILY Rx# [id number] Last Released: 10/05/24 Qty/Days Supply: 02/10 Rx Expiration Date: 10/06/25 Refills Remainin OUTPT TORSEMIDE 20MG TAB (Status = Active) TAKE ONE TABLET BY MOUTH ONCE DAILY Rx# [id number] Last Released: 08/15/24 Qty/Days Supply: Rx Expiration [...] BILAT SENSORY CHECK: Includes 10 gram Monofilament (Bonaparte-Negrita) test of sensation. Intact (Greater than or [...] PODIATRY 1 Comment: /esthela/ YULISA AGUIAR DPM FIELD ARTILLERY CREWMEMBER Signed: 10/21/2024 12:00 YULISA AGUIAR
--- OUTSIDE RECORDS SUMMARY | 2025-01-04 13:51 | XMS_ITS | Clinical Summary ---
Author Organization [address] Address [address] [place] [phone] Phone Care Team Providers Care Exhaust Equipment Operator Name Role Phone Troy Butcher Primary Care Provider [phone] Allergies Active Allergy Reactions Criticality Noted Date [...] Comment: To See Dr. Randolph Campuzano at 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 12/09/2024 Assessment & [...] Description 12/09/2024 2:40 PM EDT Office Visit [facility] - [facility] [address] [facility] [address] [place] [address] Brandi Keating NP 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 (Primary Dx); Chronic [...] Description 02/27/2025 1:30 PM EDT Ancillary Procedure [facility] [address] [place] [address] Health Maintenance Due Date Last [...] LAB CHEMISTRY METHOD 09/22/2024 8:34 PM [facility] Triglycerides 90 0 - 150 mg/dL LAB CHEMISTRY METHOD 09/22/2024 8:34 PM [facility] HDL 56 >=40 mg/dL LAB CHEMISTRY METHOD 09/22/2024 8:34 PM [facility] LDL Calculated 48 0 - 100 mg/dL LAB CHEMISTRY METHOD 09/22/2024 8:34 PM [facility] VLDL Cholesterol Jaya 18 mg/dL LAB CHEMISTRY METHOD 09/22/2024 8:34 PM [facility] Non HDL Chol. (LDL+VLDL) 66 <145 mg/dL LAB CHEMISTRY METHOD 09/22/2024 8:34 PM [facility] Chol/HDL Ratio 2.2 0.0 - 4.4 LAB CHEMISTRY METHOD 09/22/2024 8:34 PM [facility] Blood Venous blood specimen / Unknown 09/22/2024 09/22/2024 6:24 PM EST us Troy GAR LAB BLOOD ORDERABLES Final Res ult [facility] [address] [place] [address], [place] [phone] * (ABNORMAL) Comprehensive metabolic panel (09/22/2024 12:00 AM EST) Sodium 141 133 - 145 mmol/L LAB CHEMISTRY METHOD 09/22/2024 8:12 PM EST [facility] Potassium 4.3 3.5 - 5.5 mmol/L LAB CHEMISTRY METHOD 09/22/2024 8:12 PM [facility] Chloride 111(H) 96 - 110 mmol/L LAB CHEMISTRY METHOD 09/22/2024 8:12 PM [facility] CO2 26 21 - 32 mmol/L LAB CHEMISTRY METHOD 09/22/2024 8:12 PM [facility] Anion Gap 4 3 - 11 LAB CHEMISTRY METHOD 09/22/2024 8:12 PM [facility] Glucose 101(H) 70 - 100 mg/dL LAB CHEMISTRY METHOD 09/22/2024 8:12 PM [facility] BUN 20 5 - 25 mg/dL LAB CHEMISTRY METHOD 09/22/2024 8:12 PM [facility] Creatinine 0.93 0.70 - 1.30 mg/dL LAB CHEMISTRY METHOD 09/22/2024 8:12 PM [facility] eGFR 78 >=60 mL/min/1. 73m2 LAB CHEMISTRY METHOD 09/22/2024 8:12 PM [facility] Comment:Calculation based on the??Chronic Kidney Disease Epidemiology Collaboration (CKD-EPI) equation refit??without adjustment for race. BUN/Creatinine Ratio 21.5 LAB CHEMISTRY METHOD 09/22/2024 8:12 PM [facility] Calcium 9.2 8.5 - 10.5 mg/dL LAB CHEMISTRY METHOD 09/22/2024 8:12 PM [facility] AST (SGOT) 22 10 - 42 unit/L LAB CHEMISTRY METHOD 09/22/2024 8:12 PM [facility] ALT (SGPT) 36 10 - 60 unit/L LAB CHEMISTRY METHOD 09/22/2024 8:12 PM [facility] Alkaline Phosphatase 160(H) 42 - 121 unit/L LAB CHEMISTRY METHOD 09/22/2024 8:12 PM [facility] Total Protein 7.1 6.0 - 8.0 g/dL LAB CHEMISTRY METHOD 09/22/2024 8:12 PM [facility] Albumin 3.7 3.2 - 5.0 g/dL LAB CHEMISTRY METHOD 09/22/2024 8:12 PM [facility] Total Bilirubin 0.7 0.0 - 1.4 mg/dL LAB CHEMISTRY METHOD 09/22/2024 8:12 PM [facility] Blood Venous blood specimen / Unknown 09/22/2024 09/22/2024 6:24 PM EST us Troy GAR LAB BLOOD ORDERABLES Final Res ult [facility] [address] [place] [address], * Hemoglobin A1c (08/04/2024 4:02 PM EST) Hemoglobin A1C 5.7 <6.5 % LAB CHEMISTRY METHOD 08/04/2024 9:28 PM [facility] Mean Bld Glu Estim. 117 mg/dL LAB CHEMISTRY METHOD 08/04/2024 9:28 PM [facility] Blood Venous blood specimen / Unknown Venipuncture / Unknown 08/04/2024 4:02 PM EST 08/04/2024 4:32 PM EST us Bakari Akhtar MD LAB BLOOD ORDERABLES Final Result [facility] [address] [place] [address], from Last 3 Months or Most Recently Relevant to Health Maintenance Insurance [facility] Care Teams Exhaust Equipment Operator Relationship Specialty Start Date End Date Troy Butcher PA [address] [address] PCP - General Primary Care 12/09/24
--- OUTSIDE RECORDS SUMMARY | 2025-01-04 13:51 | XMS_ITS ---
Author Name [facility] Organization [facility] ([place]) Address [address] [place] [address] Care Team Providers Care Photo Lab Technician Name Role Phone GILES FUENTES Primary [...] CAREMARK PRESCRIPT ION SREEKANTH Sep 14, 2014 [id number] FANY LEMUS ON PATIENT CAREMARK PRESCRIPT ION SUSI ATKINSON Sep 14, 2014 [id number] [phone] FANY LEMSU ON PATIENT CAREMARK PRESCRIPT ION Sep 14, 2014 [id number] ALLAN,MYR ON PATIENT GEHA (SECONDARY ) PREFERRED PROVIDER ORGANIZAT ION (PPO) HIGH OPTIO N [facility] A&B Sep 14, 2005 [id number] ALLAN,MYR ON PATIENT GEHA (SECONDARY ) PREFERRED PROVIDER ORGANIZAT ION (PPO) GEHA CONNE CTION DENT Sep 14, 2005 [id number] ALLAN,MYR ON PATIENT GEHA FEHB PREFERRED PROVIDER ORGANIZAT ION (PPO) SUSI AL GOV Sep 14, 2005 [id number] ALTH [id number] ALLAN,MYR ON PATIENT GEHA FEHB PREFERRED PROVIDER ORGANIZAT ION (PPO) SUSI AL* Sep 14, 1989 [id number] ALTH [id number] ALLAN,MYR ON PATIENT GEHA-BEHAV [facility] GEHA HIGH OPTIO N Sep 14, 2021 [id number] ALLAN,MYR ON PATIENT MEDICARE (WNR) MEDICARE (M) PART A May 15, 2000 PART A [id number] ALLAN,MYR ON PATIENT MEDICARE (WNR) MEDICARE (M) PART B May 15, 2000 PART B [id number] ALLAN,MYR ON PATIENT MEDICARE (WNR) MEDICARE () PART A May 15, 2000 PART A [id number] [phone] ALLAN,MYR ON PATIENT MEDICARE (WNR) MEDICARE (M) PART B May 15, 2000 PART B [id number] ALLAN,MYR ON PATIENT MEDICARE (WNR) MEDICARE (M) PART A May 15, 2000 PART A [id number] [phone] ALLAN,MYR ON PATIENT MEDICARE (WNR) MEDICARE (M) PART B May 15, 2000 PART B [id number] ALLAN,MYR ON PATIENT MEDICARE (WNR) MEDICARE (M) PART A May 15, 2000 PART A [id number] [phone] FANY LEMUS ON PATIENT MEDICARE (WNR) MEDICARE (M) PART B May 15, 2000 PART B [id number] FANY LEMUS ON PATIENT Selected Encounter This section includes the information on record at [place] for the Encounter. Date/Time Encounter Type Encounter Description Reason Provider Source Mar 24, 2024 01:30 PM OFFICE O/P EST MOD 30 MIN OPTOMETRY ICD-10-CM H54.8 Legal blindness, as defined in [place] [facility] Encounter Template Text not used by [place] Assessments - Encounter Diagnoses This section includes the primary and secondary diagnoses documented for the Encounter. Date/Time Primary/Secondary Diagnosis Diagnosis Name Provider Source Apr 26, 2024 02:59 PM PRIMARY Legal blindness, as defined in [place] RON [facility] [facility] [place] [facility] Apr 26, 2024 02:59 PM SECONDARY Combined forms of age-related cataract, bilateral RON [facility]A [place] [facility] [place] [facility] Apr 26, 2024 02:59 PM SECONDARY Exudative age-rel mclr degn, left eye, with inactive scar RON [facility] [place] [facility] [place] [facility] Apr 26, 2024 02:59 PM SECONDARY Exudative age-rel mclr degn, right eye, with inactive scar RON [facility] [place] [facility] [place] [facility] Apr 26, 2024 02:59 PM SECONDARY Type 2 diabetes mellitus without complications [facility] Plan of Treatment: Future Appointments (+ 6 months) and Future Tests (+/- 45 days) The Plan of Treatment section includes future care activities for the patient from all [place] treatmentfacilities. This section includes future appointments and future orders which are active, pending or scheduled. Future Appointments This section includes appointments that were scheduled to occur 6 months from the date of the Encounter, up to a maximum of 20 appointments. The data comes from all [place] treatment facilities. Appointment Date/Time Appointment Type Appointme nt Facility Name Mar 31, 2024 11:00 AM AMBULATORY - REHAB MEDICIN E [place] [facility] [place] [facility] Mar 31, 2024 01:00 PM AMBULATORY - REHAB MEDICIN E [facility] [place] [facility] May 04, 2024 01:00 PM AMBULATORY - REHAB MEDICIN E [facility] [place] [facility] Jun 03, 2024 11:30 AM [facility] Vital Signs: All taken on the encounter date This section contains inpatient and outpatient Vital Signs collected on the date of the Encounter. Date/Time Temperature Pulse Blood Pressure Respiratory Rate SP02 Pain Height Weight Body Mass Index Source Mar 24, 2024 11:00 AM 97.1 94 118/70 18 92 0 197.6 28 [place] [facility] [place] [facility] Social History: Smoking Status (Most current) and Tobacco Use (All prior to encounter date) This section includes the most current, and the historical, smoking and tobacco- related health factors from the [place] facility where the Encounter took place. Current Smoking Status This section includes the most current smoking, or tobacco-related health factor, from the [place] facility where the Encounter took place. Date/Time Current Smoking Status Comment Facil ity Sep 02, 2023 05:30 PM VA-TOBACCO FORMER USER [facility] Tobacco Use History This section includes a history of the smoking, or tobacco-related health factors, that were collected on or before the date of the Encounter. The data comes from the [place] facility where the Encounter took place. Date/Time Smoking Status/Tobacco Use Comment F acility Sep 02, 2023 05:30 PM VA-TOBACCO QUIT 15 YRS OR MORE [place] [facility] [place] [facility] Apr 24, 2022 01:00 PM VA-TOBACCO FORMER USER [facility] [place] [facility] Apr 24, 2022 01:00 PM VA-TOBACCO QUIT 15 YRS OR MORE [facility] [place] [facility] Dec 05, 2021 02:00 PM VA-TOBACCO USE DEC LINED TO ANSWER [facility] [place] [facility] Nov 24, 2021 04:05 PM VA-TOBACCO USE DEC LINED TO ANSWER [facility] [place] [facility] Sep 20, 2020 08:40 AM VA-TOBACCO NEVER USED [place] [facility] [place] [facility] Advance Directives: All historical and current Section Date Range: From patient's date of to the date document was created. This section includes ALL of a patient's completed or amended VA Advance and Rescinded Directives. The entries below indicate that a directive exists for the patient, but an actual copy is not included with this document. The data comes from all [place] facilities. Date Advance Directives Provider Source Nov 11, 2016 ADVANCE DIRECTIVE ELROY CHÁVEZ [place] [facility] Jul 08, 2006 ADVANCE DIRECTIVE CHAPARRO DICK [facility] Encounter Notes: All associated encounter notes [...] glaucoma as well and previously referred to [facility] for prophylactic laser iridotomy. Dr. Collazo had conferred conferred with his retina specialist at [facility] regarding LPI's with recommendation to monitor and [...] JLV. Allergies/ADRs (Tool #5) FACILITY ALLERGY/ADR -------- [place] [facility] [place] [facility]FA DRUGS [facility] INFLUENZA [facility] SULFA DRUGS [facility] ([facility] INCLUDED IN THIS LIST: Alphabetical list of active outpatient prescriptions dispensed from this [place] (local) and dispensed from another [place] or [facility] facility (remote) as well as inpatient orders (local pending and active), local clinic medications, locally documented non-VA medications, and local prescriptions that have or been discontinued in the past 90 days. Non-VA Meds Last Documented On: Dec 21, 2023 NOTE The display of VA prescriptions dispensed from another [place] or [facility] facility (remote) is limited to active outpatient prescription entries matched to National Drug File at the originating site and may not include some items such as investigational drugs, compounds, etc. NOT INCLUDED IN THIS LIST: Medications self-entered by the patient into personal health records (i.e. [employer] are NOT included in this list. Non-VA medications documented outside this [place], remote inpatient orders (regardless of status) and remote clinic medications are NOT included in this list. The patient and provider must always discuss medications the patient is taking, regardless of where the medication was dispensed or obtained. OUTPT ACETAMINOPHEN 500MG TAB (Status = Active) TAKE TWO TABLETS BY MOUTH THREE TIMES DAILY NEEDED FOR PAIN Rx# [id number] Last Released: 09/16/23 Qty/Days Supply: 200/34 Rx Expiration Date: 09/15/24 Refills Remainin Indication: FOR PAIN OUTPT ALOGLIPTIN 25MG TAB (Status = Active/Suspended) TAKE ONE TABLET BY MOUTH ONCE DAILY IN PLACE OF SITAGLIPTIN Rx# [id number] Last Released: 01/19/24 Qty/Days Supply: Rx Expiration Date: 11/06/24 Refills Remainin Indication: FOR TYPE 2 DIABETES MELLITUS OUTPT AMLODIPINE BESYLATE 10MG TAB (Status = Active) TAKE ONE TABLET BY MOUTH ONCE DAILY FOR BLOOD PRESSURE/HEART, DO NOT TAKE WITH GRAPEFRUIT JUICE Rx# [id number] Last Released: 01/25/24 Qty/Days Supply: Rx Expiration Date: 04/20/24 Refills Remainin OUTPT ASPIRIN 81MG EC TAB (Status = Active) TAKE ONE TABLET BY MOUTH ONCE DAILY TO PREVENT STROKE/HEART ATTACK Rx# [id number] Last Released: 02/15/24 Qty/Days Supply: 120 Rx Expiration Date: 02/10/25 Refills Remainin Indication: FOR BLOOD CLOT PREVENTION FOLLOWING PCI OUTPT ATORVASTATIN CALCIUM 80MG TAB (Status = Active) TAKE ONE TABLET BY MOUTH ONCE DAILY FOR CHOLESTEROL Rx# [id number] Last Released: 01/19/24 Qty/Days Supply: Rx Expiration Date: 10/01/24 Refills Remainin OUTPT BRIMONIDINE 0.2%/BRINZOLAMID 1% OPH SUSP (Status = Active) INSTILL 1 DROP INTO EACH EYE TWICE DAILY Rx# [id number] Last Released: 01/05/24 Qty/Days Supply: Rx Expiration Date: 11/26/24 Refills Remainin OUTPT CARVEDILOL 3.125MG TAB (Status = Active) TAKE ONE TABLET BY MOUTH TWICE DAILY FOR HIGH BLOOD PRESSURE Rx# [id number] Last Released: 03/09/24 Qty/Days Supply: 180 Rx Expiration Date: 03/09/25 Refills Remainin Indication: FOR HIGH BLOOD PRESSURE OUTPT CHOLECALCIF 25MCG (D3-1,000UNIT) TAB (Status = Active) TAKE ONE TABLET BY MOUTH ONCE DAILY FOR VITAMIN SUPPLEMENTATION Rx# [id number] Last Released: 03/08/24 Qty/Days Supply: Rx Expiration Date: 08/04/24 Refills Remainin OUTPT DOCUSATE NA 100MG CAP (Status = Active) TAKE ONE CAPSULE BY MOUTH TWICE DAILY NEEDED TO SOFTEN STOOL Rx# [id number] Last Released: 11/09/23 Qty/Days Supply: 100/50 Rx Expiration Date: 10/28/24 Refills Remainin Indication: FOR CONSTIPATION OUTPT EPLERENONE 25MG TAB (Status = Active) TAKE ONE TABLET BY MOUTH ONCE DAILY FOR HIGH BLOOD PRESSURE Rx# [id number] Last Released: 02/10/24 Qty/Days Supply: 90 Rx Expiration Date: 09/15/24 Refills Remainin Indication: FOR HIGH BLOOD PRESSURE Non-VA FLUTICASONE/UMECLID/VILANT (TRELEGY 200) INHL,ORAL INHALE BY MOUTH ONCE DAILY OUTPT KETOCONAZOLE 2% SHAMPOO (Status = Active) SHAMPOO SMALL AMOUNT TOPICALLY ONCE DAILY Rx# [id number] Last Released: 11/09/23 Qty/Days Supply: 120/90 Rx Expiration Date: 10/28/24 Refills Remainin Indication: FOR FUNGAL INFECTION OF THE SKIN OUTPT LATANOPROST 0.005% OPH SOLN (Status = Discontinued) INSTILL 1 DROP INTO EACH EYE AT BEDTIME Rx# [id number] Last Released: 11/27/23 Qty/Days Supply: 12 Rx Expiration Date: 11/26/24 Refills Remainin OUTPT LATANOPROST 0.005% OPH SOLN (Status = Active/Suspended) INSTILL 1 DROP INTO EACH EYE AT BEDTIME Rx# [id number] Last Released: Qty/Days Supply: Rx Expiration Date: 01/11/25 Refills Remainin OUTPT LOSARTAN 100MG TAB (Status = Active) TAKE ONE TABLET BY MOUTH ONCE DAILY FOR BLOOD PRESSURE/HEART Rx# [id number] Last Released: 03/15/24 Qty/Days Supply: 9090 Rx Expiration Date: 10/01/24 Refills Remainin Indication: FOR HIGH BLOOD PRESSURE OUTPT MULTIVIT/OPHTH AREDS2/LUTE/ZEAX CAP/TAB (Status = Active) TAKE 1 CAPSULE BY MOUTH TWICE DAILY IN THE MORNING AND EVENING, WITH FOOD Rx# [id number] Last Released: 03/08/24 Qty/Days Supply: 120/60 Rx Expiration Date: 03/25/24 Refills Remainin Non-VA OXYGEN MISCELLANEOUS USE 2 LITERS VIA NC AT NIGHT DIRECTED NEEDED Medication prescribed by Non-VA provider. OUTPT POLYETHYLENE GLYCOL 3350 ORAL PWDR (Status = ) TAKE 17 GRAMS(FILL CAP TO 17GM LINE) BY MOUTH ONCE DAILY NEEDED FOR CONSTIPATION [MIX WITH 4 TO 8OZ. OF BEVERAGE] Rx# [id number] Last Released: 11/09/23 Qty/Days Supply: Rx Expiration Date: 01/26/24 Refills Remainin Indication: FOR CONSTIPATION OUTPT PRIMIDONE 50MG TAB (Status = Active) TAKE ONE TABLET BY MOUTH THREE TIMES A DAY Rx# [id number] Last Released: 03/15/24 Qty/Days Supply: Rx Expiration Date: 10/01/24 Refills Remainin OUTPT TIMOLOL MALEATE 0.5% OPH GEL (Status = Active) APPLY 1 DROP INTO EACH EYE TWICE DAILY Rx# [id number] Last Released: 10/06/23 Qty/Days Supply: Rx Expiration Date: 07/14/24 Refills Remainin OUTPT TIMOLOL MALEATE 0.5% OPH SOLN (Status = Active) INSTILL 1 DROP INTO EACH EYE TWICE DAILY Rx# [id number] Last Released: 03/09/24 Qty/Days Supply: Rx Expiration Date: 11/26/24 Refills Remainin OUTPT TORSEMIDE 20MG TAB (Status = Discontinued) TAKE ONE TABLET BY MOUTH ONCE DAILY Rx# [id number] Last Released: 01/19/24 Qty/Days Supply: Rx Expiration Date: 07/20/24 Refills Remainin OUTPT TORSEMIDE 20MG TAB (Status = Active) TAKE ONE TABLET BY MOUTH ONCE DAILY Rx# [id number] Last Released: 03/15/24 Qty/Days Supply: Rx Expiration Date: 02/10/25 Refills Remainin SUPPLIES OUTPT PRODIGY NO CODE (GLUCOSE) TEST STRIP (Status = ) USE 1 STRIP TO TEST BLOOD SUGARS TWICE A WEEK NEEDED Rx# [id number] Last Released: 03/12/23 Qty/Days Supply: 50/90 Rx Expiration Date: 03/03/24 Refills Remainin Declines printed copy of medication list now. /esthela/ Raj Lima OD CHIEF OF OPTOMETRY Signed: 03/24/2024 14:15 RAJ [facility] [place] [facility] Mar 24, 2024 01:15 PM OPTOMETRY [...] 7. Chronic ischemic heart disease (SNOMED CT 859067181) 8. Coronary artery disease 9. Exudative age-related macular degeneration (SNOMED CT 554758965) 10. Gastroesophageal reflux disease without esophagitis 11. 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 Personal History of Colonic Polyps 13. Obesity 14. Essential hypertension (SNOMED CT 45583113) 15. Hyperlipidemia (SNOMED CT 98296013) 16. Osteoarthritis (SNOMED CT 020085946) 17. Chronic obstructive lung disease (SNOMED CT 98326709) 18. Prostate cancer (SNOMED CT 068186897) 19. Legal blindness (SNOMED CT 72617491) 20. H/O: tuberculosis 21. Asbestosis (SNOMED CT 24250414) Active Outpatient Medications (including Supplies): Active Outpatient [...] OF OPTOMETRY Cosigned: 03/28/2024 07:57 TIKA DAVIES [facility]
--- OUTSIDE RECORDS SUMMARY | 2025-01-04 13:51 | XMS_ITS | Encounter Summary ---
Author Organization [facility] Address [address] [place] [address] Care Team Providers Care Photo Checker Name Role Phone Troy Butcher Primary Care Provider [phone] Encounter Details Date Type Department Care Team (Latest Contact Info) Description 09/22/2024 Lab Requisition [facility] - Main Lab [address] [facility] [place] [id number] Troy Butcher PA 299 [facility] [address] [place] [address] Chronic obstructive pulmonary disease, unspecified (CMS/HCC V24, [...] Description 02/27/2025 1:30 PM EDT Ancillary Procedure [facility] - [address] [place] [address] documented as of this encounter [...] SST tube (09/22/2024 12:00 AM EST) Pathologist [facility] Extra Tube Hold for add-ons. 09/22/2024 8:[address] [facility] Comment:Auto resulted. Blood Venous blood specimen / Unknown 09/22/2024 09/22/2024 6:24 PM EST us Troy GAR LAB BLOOD ORDERABLES Final Res ult [facility] [address] [place] [address], [place] [phone] * (ABNORMAL) CBC auto differential (09/22/2024 12:00 AM EST) [facility] WBC 8.9 4.8 - 10.8 [...] LAB HEMETOLOGY METHOD 09/22/2024 7:[address] [facility] Monocytes Absolute 0.84 0.20 - 1.00 K/[facility] LAB HEMETOLOGY METHOD 09/22/2024 7:[address] [facility] Eosinophils Absolute 0.12 0.00 - 0.50 K/[facility] LAB HEMETOLOGY METHOD 09/22/2024 7:[address] [facility] Basophils Absolute 0.05 0.00 - 0.20 K/[facility] HEMETOLOGY METHOD 09/22/2024 7:[address] [facility] Immature Granulocytes Absolute 0.02 0.00 - 0.03 K/[facility] HEMETOLOGY METHOD 09/22/2024 7:[address] [facility] Blood Venous blood specimen / Unknown 09/22/2024 09/22/2024 6:24 PM EST us Troy GAR LAB BLOOD ORDERABLES Final Res ult [facility] [address] [place] [address], * (ABNORMAL) Prostate specific antigen screen (09/22/2024 12:00 AM EST) PSA 27.54(H) 0.00 - 4.00 ng/mL LAB CHEMISTRY METHOD 09/22/2024 8:[address] [facility] Blood Venous blood specimen / Unknown 09/22/2024 09/22/2024 6:[address] [facility] - 09/22/2024 8:21 PM EST The Siemens Advia Centaur Chemiluminescent Immunoassay is used. Results obtained with different assay methods or kits cannot be used interchangeably. Results cannot be interpreted as absolute evidence of the presence or absence of malignant disease. us Troy GAR LAB BLOOD ORDERABLES Final Res ult Performing Organization Address [facility] [address]/ZIP Co de Phone Number [facility] [address] [place] [address], [place] [phone] * Magnesium (09/22/2024 12:00 AM EST) Magnesium 2.1 1.9 - 2.6 mg/dL LAB CHEMISTRY METHOD 09/22/2024 8:[address] [facility] Blood Venous blood specimen / Unknown 09/22/2024 09/22/2024 6:24 PM EST Troy GAR LAB BLOOD ORDERABLES Final Res ult Performing Organization Address [facility] [address]/[facility] Co de Phone Number [facility] [address] [place] [address], [place] [phone] * B-type natriuretic peptide (09/22/2024 12:00 AM EST) BNP 17 <=100 pcg/mL LAB CHEMISTRY METHOD 09/22/2024 8:[address] [facility] Blood Venous blood specimen / Unknown 09/22/2024 09/22/2024 6:24 PM EST us Troy GAR LAB BLOOD ORDERABLES Final Res ult Performing Organization Address City/[facility] [address]/ZIP Co de Phone Number [facility] [address] [place] [address], [place] [phone] * Vitamin B12 (09/22/2024 12:00 AM EST) Vitamin B-12 560 250 - 900 pcg/mL LAB CHEMISTRY METHOD 09/22/2024 8:[address] [facility] Blood Venous blood specimen / Unknown 09/22/2024 09/22/2024 6:24 PM EST us Troy GAR LAB BLOOD ORDERABLES Final Res ult Performing Organization Address City/[facility] [address]/ZIP Co de Phone Number [facility] [address] [place] [address], [place] [phone] * LDL cholesterol, direct (09/22/2024 12:00 AM EST) LDL Direct 59 <=100 mg/dL LAB CHEMISTRY METHOD 09/22/2024 8:[address] [facility] Blood Venous blood specimen / Unknown 09/22/2024 09/22/2024 6:24 PM EST us Troy GAR LAB BLOOD ORDERABLES Final Res ult Performing Organization Address [facility] [address]/[facility] Co de Phone Number [facility] [address] [place] [address], [place] [phone] * Vitamin D 25 hydroxy (09/22/2024 12:00 AM EST) Vit D, 25-Hydroxy 30.1 30.0 - 80.0 ng/mL LAB CHEMISTRY METHOD 09/22/2024 8:[address] [facility] Blood Venous blood specimen / Unknown 09/22/2024 09/22/2024 6:24 PM EST us Troy GAR LAB BLOOD ORDERABLES Final Res ult Performing Organization Address City/[facility] [address]/ZIP Co de Phone Number [facility] [address] [place] [address], [place] [phone] * Lipid panel with reflex to direct LDL (09/22/2024 12:00 AM EST) Cholesterol 122 0 - 200 mg/dL LAB CHEMISTRY METHOD 09/22/2024 8:[address] [facility] Triglycerides 90 0 - 150 mg/dL LAB CHEMISTRY METHOD 09/22/2024 8:34 PM [facility] HDL 56 >=40 mg/dL LAB CHEMISTRY METHOD 09/22/2024 8:34 PM [facility] LDL Calculated 48 0 - 100 mg/dL LAB CHEMISTRY METHOD 09/22/2024 8:34 PM [facility] VLDL Cholesterol Jaya 18 mg/dL LAB CHEMISTRY METHOD 09/22/2024 8:34 PM [facility] Non HDL Chol. (LDL+VLDL) 66 <145 mg/dL LAB CHEMISTRY METHOD 09/22/2024 8:34 PM [facility] Chol/HDL Ratio 2.2 0.0 - 4.4 LAB CHEMISTRY METHOD 09/22/2024 8:34 PM [facility] Blood Venous blood specimen / Unknown 09/22/2024 09/22/2024 6:24 PM EST us Troy GAR LAB BLOOD ORDERABLES Final Res ult [facility] [address] [place] [address], * (ABNORMAL) Comprehensive metabolic panel (09/22/2024 12:00 AM EST) Sodium 141 133 - 145 mmol/L LAB CHEMISTRY METHOD 09/22/2024 8:12 PM [facility] Potassium 4.3 3.5 - 5.5 mmol/L LAB CHEMISTRY METHOD 09/22/2024 8:12 PM [facility] Chloride 111(H) 96 - 110 [...] 09/22/2024 8:12 PM [facility] Total Bilirubin 0.7 0.0 - 1.4 mg/dL LAB CHEMISTRY METHOD 09/22/2024 8:12 PM [facility] Blood Venous blood specimen / Unknown 09/22/2024 09/22/2024 6:24 PM EST us Troy GAR LAB BLOOD ORDERABLES Final Res ult [facility] [address] [place] [address], documented in this encounter Visit Diagnoses Diagnosis Chronic obstructive pulmonary disease, unspecified (CMS/HCC V24, CMS/[facility] V28) Type 2 diabetes mellitus without complications (CMS/HCC V24, CMS/[facility] V28) documented in this encounter Care Teams Photo Checker Relationship Specialty Start Date End Date Troy Butcher PA [address] [address] PCP - General Primary Care 12/09/24 documented as of this encounter
--- OUTSIDE RECORDS SUMMARY | 2025-01-04 13:51 | XMS_ITS ---
Author Name [facility] Organization [facility] Address [address] [place] [address] Care Team Providers Care Building Rigger Name Role Phone GINAGILES Barfield Primary Care [...] CAREMARK PRESCRIPT ION SREEKANTH Sep 14, 2014 [id number] [phone] FANY LEMUS ON PATIENT CAREMARK PRESCRIPT ION SUSI ATKINSON Sep 14, 2014 [id number] [phone] FANY LEMUS ON PATIENT CAREMARK PRESCRIPT ION Sep 14, 2014 [id number] ALLAN,MYR ON PATIENT GEHA (SECONDARY ) PREFERRED PROVIDER ORGANIZAT ION (PPO) HIGH OPTIO N [facility] A&B Sep 14, 2005 [id number] ALLAN,MYR ON PATIENT GEHA (SECONDARY ) PREFERRED PROVIDER ORGANIZAT ION (PPO) GEHA CONNE CTION DENT Sep 14, 2005 [id number] ALLAN,MYR ON PATIENT GEHA FEHB PREFERRED PROVIDER ORGANIZAT ION (PPO) SUSI AL GOV Sep 14, 2005 [id number] ALTH [id number] ALLAN,MYR ON PATIENT GEHA FEHB PREFERRED PROVIDER ORGANIZAT ION (PPO) SUSI AL* Sep 14, 1989 [id number] ALTH [id number] ALLAN,MYR ON PATIENT GEHA-BEHAV [facility] GEHA HIGH OPTIO N Sep 14, 2021 [id number] ALLAN,MYR ON PATIENT MEDICARE (WNR) MEDICARE (M) PART A May 15, 2000 PART A [id number] ALLAN,MYR ON PATIENT MEDICARE (WNR) MEDICARE (M) PART B May 15, 2000 PART B [id number] ALLAN,MYR ON PATIENT MEDICARE (WNR) MEDICARE (M) PART A May 15, 2000 PART A [id number] ALLAN,MYR ON PATIENT MEDICARE (WNR) MEDICARE (M) PART B May 15, 2000 PART B [id number] ALLAN,MYR ON PATIENT MEDICARE (WNR) MEDICARE (M) PART A May 15, 2000 PART A [id number] [phone] [id number] ALLAN,MYR ON PATIENT MEDICARE (WNR) MEDICARE (M) PART B May 15, 2000 PART B [id number] ALLAN,MYR ON PATIENT MEDICARE (WNR) MEDICARE (M) PART A May 15, 2000 PART A [id number] ALLAN,FANY ON PATIENT MEDICARE (WNR) MEDICARE (M) PART B May 15, 2000 PART B [id number] [id number] ALLAN,FANY ON PATIENT Selected Encounter This section includes the information on record at OR for the Encounter. Date/Time Encounter Type Encounter Description Reason Provider Source Aug 31, 2024 01:52 PM Outpatient Encounter [facility] PHYSIC EXTND(DIRECTOR APPAREL,JEWEL LATHE OPERATOR,PA) ICD-10-CM Z99.81 Dependence on supplemental oxygen GILES FUENTES Verito Encounter Template Text not used by OR Assessments - Encounter Diagnoses This section includes the primary and secondary diagnoses documented for the Encounter. Date/Time Primary/Secondary Diagnosis Diagnosis Name Provider Source Sep 02, 2024 09:08 AM PRIMARY Dependence on supplemental oxygen GILES FUENTES [place] [facility] [place] [facility] Sep 02, 2024 09:08 AM SECONDARY Athscl heart disease of [place] coronary artery w/o ang pctrs GILES FUENTES [place] [facility] [place] [facility] Sep 02, 2024 09:08 AM SECONDARY Carcinoma in situ of prostate GILES FUENTES [place] [facility] [place] [facility] Sep 02, 2024 09:08 AM SECONDARY Chronic ischemic heart disease, unspecified GILES FUENTES [place] [facility] [place] [facility] Sep 02, 2024 09:08 AM SECONDARY Contact with and (suspected) exposure to asbestos GILES FUENTES [facility] [place] [facility] Sep 02, 2024 09:08 AM SECONDARY Essential (primary) hypertension GILES FUENTES [facility] [place] [facility] Sep 02, 2024 09:08 AM SECONDARY Exudative age-rel mclr degn, bilateral, stage unspecified GILES FUENTES [place] [facility] [place] [facility] Sep 02, 2024 09:08 AM SECONDARY Gastro-esophageal reflux disease without esophagitis GILES FUENTES [place] [facility] [place] [facility] Sep 02, 2024 09:08 AM SECONDARY Hyperlipidemia, unspecified GILES FUENTSE [place] [facility] [place] [facility] Sep 02, 2024 09:08 AM SECONDARY Legal blindness, as defined in [place] GILES FUENTES [place] [facility] [place] [facility] Sep 02, 2024 09:08 AM SECONDARY Other specified chronic obstructive pulmonary disease GILES FUENTES [place] [facility] [place] [facility] Sep 02, 2024 09:08 AM SECONDARY Other specified hearing loss, bilateral GILES FUENTES [place] [facility] [place] [facility] Sep 02, 2024 09:08 AM SECONDARY Primary osteoarthritis, unspecified site GILES FUENTES [facility] [place] [facility] Sep 02, 2024 09:08 AM SECONDARY Tremor, unspecified GILES FUENTES [place] [facility] [place] [facility] Sep 02, 2024 09:08 AM SECONDARY Type 2 diabetes mellitus without complications GILES FUENTES [place] [facility] [place] [facility] Sep 02, 2024 09:08 AM SECONDARY Unsp primary angle-closure glaucoma, stage unspecified GILES FUENTES [place] [facility] [place] [facility] Plan of Treatment: Future Appointments (+ 6 months) and Future Tests (+/- 45 days) The Plan of Treatment section includes future care activities for the patient [facility] This section includes future appointments and future orders which are active, pending or scheduled. Future Appointments This section includes appointments that were scheduled to occur 6 months from the date of the Encounter, up to a maximum of 20 appointments. The data comes from all [facility] facilities. Appointment Date/Time Appointment Type Appointme nt Facility Name Sep 26, 2024 10:00 AM AMBULATORY - REHAB MEDICIN E [facility] [place] [facility] Oct 21, 2024 11:30 AM AMBULATORY - MEDICINE [place] Feb 24, 2025 11:30 [facility] Active, Pending, and Scheduled Orders This section includes a listing of several types of active, pending, and scheduled orders, including clinic medications orders, diagnostic test orders, procedure orders and consult orders; where thestart date of the order is 45 days before the date of the Encounter or 45 days after the date of the Encounter. The data comes from all [place] treatment facilities. Test Date/Time Test Type Test Details Facility Name Aug 30, 2024 12:00 AM Laboratory - Chemi stry Order BASIC METABOLIC PANEL (non-fasting) BLOOD (SST-SERUM) [facility] [place] [facility] Aug 30, 2024 12:00 AM Laboratory - Chemi stry Order BNP (Natriuretic Peptide Brain) BLOOD (LAV-PLASMA) [facility] Vital Signs: All taken on the encounter date This section contains inpatient and outpatient Vital Signs collected on the date of the Encounter. Date/Time Temperature Pulse Blood Pressure Respiratory Rate SP02 Pain Height Weight Body Mass Index Source Aug 31, 2024 01:52 PM 98 67 138/78 18 94 0 [place] [facility] [place] [facility] Social History: Smoking Status (Most current) and Tobacco Use (All prior to encounter date) This section includes the most current, and the historical, smoking and tobacco- related health factors from the OR facility where the Encounter took place. Current Smoking Status This section includes the most current smoking, or tobacco-related health factor, from the OR facility where the Encounter took place. Date/Time Current Smoking Status Comment Facil ity Aug 31, 2024 01:52 PM VA-TOBACCO USE FOR BERNICE CIGARETTES [facility] Tobacco Use History This section includes a history of the smoking, or tobacco-related health factors, that were collected on or before the date of the Encounter. The data comes from the OR facility where the Encounter took place. Date/Time Smoking Status/Tobacco Use Comment F acility Aug 31, 2024 01:52 PM VA-TOBACCO USE FOR BERNICE CIGARETTES [place] [facility] [place] [facility] Sep 02, 2023 05:30 PM VA-TOBACCO FORMER USER [place] [facility] [place] [facility] Sep 02, 2023 05:30 PM VA-TOBACCO QUIT 15 YRS OR MORE [facility] [place] [facility] Apr 24, 2022 01:00 PM VA-TOBACCO FORMER USER [place] [facility] [place] [facility] Apr 24, 2022 01:00 PM VA-TOBACCO QUIT 15 YRS OR MORE [place] [facility] [place] [facility] Dec 05, 2021 02:00 PM VA-TOBACCO USE DEC LINED TO ANSWER [facility] Nov 24, 2021 04:05 PM [facility] Sep 20, 2020 08:40 AM [facility]ACCO [facility] Advance Directives: All historical and current Section Date Range: From patient's date of to the date document was created. This section includes ALL of a patient's completed or amended OR Advance and Rescinded Directives. The entries below indicate that a directive exists for the patient, but an actual copy is not included with this document. The data comes from all OR facilities. Date Advance Directives Provider Source Nov 11, 2016 ADVANCE DIRECTIVE ELROY [facility]Z [facility] Jul 08, 2006 ADVANCE DIRECTIVE CHAPARRO DICK [facility] Encounter Notes: All associated encounter notes This section contains the clinical notes associated to the Encounter. Date/Time Encounter Note(s) Provider Source Sep 02, 2024 09:12 AM ADDENDUM: LOCAL TITLE: Addendum STANDARD TITLE: ADDENDUM DATE OF NOTE: SEP 02, 2024@09:12:29 ENTRY DATE: SEP 02, 2024@09:12:30 AUTHOR: GILES FUENTES COSIGNER: URGENCY: STATUS: COMPLETED Mr. Lemus is coming to [facility] in October for podiatry. I requested he get labs then. /esthela/ GILES FUENTES [facility] NURSE PRACTITIONER Signed: 09/02/2024 09:13 Receipt Acknowledged By: 09/02/2024 15:30 /esthela/ Adalgisa Pina RN HB neurology physician --- Original Document --- 08/31/24 [facility] PROVIDER ASSESSMENT: [place] was seen for: [ ] Initial Review [...] a burden. HISTORY: PERIOD OF SERVICE - [facility] FROM Oct TO Apr COMBAT SERVICE INDICATED: No SH: SERVICE CONNECTED % - 10 ASBESTOSIS 0% SC IMPAIRED HEARING 0% SC TINNITUS 10% SC MARITAL STATUS - [facility] Providers blind rehab podiatry Non- [facility] Providers PV cardiology Nephrology [facility] Hospitalizations- none in >12 mos 05/2024 circucision [...] 7. Chronic ischemic heart disease (SNOMED CT 412468926) 8. Coronary artery disease 9. Exudative age-related macular degeneration (SNOMED CT 507344549) 10. Gastroesophageal reflux disease without esophagitis 11. 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 Personal History of Colonic Polyps 13. Obesity 14. Essential hypertension (SNOMED CT 39508341) 15. Hyperlipidemia (SNOMED CT 44316030) 16. Osteoarthritis (SNOMED CT 020737458) 17. Chronic obstructive lung disease (SNOMED CT 79730697) 18. Prostate cancer (SNOMED CT 637637429) 19. Legal blindness (SNOMED CT 10272276) 20. H/O: tuberculosis 21. Asbestosis (SNOMED CT 59155592) Review of Systems: CONSTITUTIONAL: No recent weight [...] and managed with tylenol Podiatry appt at [facility] 10/2023, advised to get labs done * [...] decision making and is confirmed with the [place]/caregiver. All questions answered, education provided regarding medication, [...] this VA (local) and dispensed from another OR or DoD facility (remote) as well as [...] NURSE PRACTITIONER Signed: 09/02/2024 09:12 GILES FUENTES [facility] Aug 31, 2024 01:52 PM [facility] ATTENDING NOTE: LOCAL TITLE: [facility] PROVIDER ASSESSMENT STANDARD TITLE: [facility] ATTENDING NOTE DATE OF NOTE: AUG 31, 2024@13:52 ENTRY DATE: AUG 31, 2024@13:52:56 AUTHOR: GILES FUENTES EXP COSIGNER: URGENCY: STATUS: COMPLETED [facility] PROVIDER ASSESSMENT Has ADDENDA [place] was seen for: [ ] Initial Review x] Annual Review [ ] Interim Visit Identified by name, , address and facial recognition: Y VVC Ready: Yes [ ] No [x ] HPI:89 yo M seen for annual [facility] visit. He has no new complaints. PMH as listed below. He is requesting to trial Héctortri as the cost of Trelegy is a burden. HISTORY: PERIOD OF SERVICE - [facility] FROM Oct TO Apr COMBAT SERVICE INDICATED: No SH: SERVICE CONNECTED % - 10 ASBESTOSIS 0% SC IMPAIRED HEARING 0% SC TINNITUS 10% SC MARITAL STATUS - [facility] Providers blind rehab podiatry Non- [facility] Providers PV cardiology Nephrology [facility] Hospitalizations- none in >12 mos 05/2024 circucision [...] 7. Chronic ischemic heart disease (SNOMED CT 629973711) 8. Coronary artery disease 9. Exudative age-related macular degeneration (SNOMED CT 939512053) 10. Gastroesophageal reflux disease without esophagitis 11. 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 Personal History of Colonic Polyps 13. Obesity 14. Essential hypertension (SNOMED CT 71349594) 15. Hyperlipidemia (SNOMED CT 15399191) 16. Osteoarthritis (SNOMED CT 375892350) 17. Chronic obstructive lung disease (SNOMED CT 29658616) 18. Prostate cancer (SNOMED CT 787496010) 19. Legal blindness (SNOMED CT 44804349) 20. H/O: tuberculosis 21. Asbestosis (SNOMED CT 88445877) Review of Systems: CONSTITUTIONAL: No recent weight [...] blind, glaucoma > cont to f/u with count includes the [facility] optho COPD, asbestosis, h/o TB, oxygen PRN [...] and managed with tylenol Podiatry appt at [facility] 10/2023, advised to get labs done * [...] this VA (local) and dispensed from another OR or [facility] facility (remote) as well as inpatient [...] as: Straight or Heterosexual /esthela/ GILES FUENTES [facility] NURSE PRACTITIONER Signed: 09/02/2024 09:12 09/02/2024 ADDENDUM STATUS: COMPLETED Mr. Lemus is coming to [facility] in October for podiatry. I requested he get labs then. /esthela/ GILES FUENTES [facility] NURSE PRACTITIONER Signed: 09/02/2024 09:13 Receipt Acknowledged By: * AWAITING SIGNATURE * ADALGISA PINA JESSICA FRANCES [facility]
--- OUTSIDE RECORDS SUMMARY | 2025-01-04 13:51 | XMS_ITS | Encounter Summary ---
Author Name [facility] [place] [facility] Address [address] [place] [address] Care Team Providers Care Telephone Answerer Name Role Phone GILES FUENTES Primary Care [...] CAREMARK PRESCRIPT ION GEHA Sep 14, 2014 [id number] FANY LEMUS ON PATIENT CAREMARK PRESCRIPT ION SUSI AL NAVEENO ONDINA TEIXEIRAA Sep 14, 2014 [id number] [phone] FANY LEMUS ON PATIENT CAREMARK PRESCRIPT ION Sep 14, 2014 [id number] [phone] FANY LEMUS ON PATIENT GEHA (SECONDARY ) PREFERRED PROVIDER ORGANIZAT ION (PPO) HIGH OPTIO N MCR A&B Sep 14, 2005 [id number] ALLAN,MYR ON PATIENT GEHA (SECONDARY ) PREFERRED PROVIDER ORGANIZAT ION (PPO) GEHA CONNE CTION DENT Sep 14, 2005 [id number] ALLAN,MYR ON PATIENT GEHA FEHB PREFERRED PROVIDER ORGANIZAT ION (PPO) SUSI AL GOV Sep 14, 2005 [id number] ALTH [id number] ALLAN,MYR ON PATIENT GEHA FEHB PREFERRED PROVIDER ORGANIZAT ION (PPO) SUSI AL* Sep 14, 1989 [id number] ALTH [id number] ALLAN,MYR ON PATIENT GEHA-BEHAV [facility] GEHA HIGH OPTIO N Sep 14, 2021 [id number] ALLAN,MYR ON PATIENT MEDICARE (WNR) MEDICARE (M) PART A May 15, 2000 PART A [id number] ALLAN,MYR ON PATIENT MEDICARE (WNR) MEDICARE (M) PART B May 15, 2000 PART B [id number] ALLAN,MYR ON PATIENT MEDICARE (WNR) MEDICARE (M) PART A May 15, 2000 PART A [id number] LALAN,MYR ON PATIENT MEDICARE (WNR) MEDICARE (M) PART B May 15, 2000 PART B [id number] ALLAN,MYR ON PATIENT MEDICARE (WNR) MEDICARE (M) PART A May 15, 2000 PART A [id number] ALLAN,MYR ON PATIENT MEDICARE (WNR) MEDICARE (M) PART B May 15, 2000 PART B [id number] [phone] ALLAN,MYR ON PATIENT MEDICARE (WNR) MEDICARE (M) PART A May 15, 2000 PART A [id number] [id number] [phone] ALLAN,MYR ON PATIENT MEDICARE (WNR) MEDICARE (M) PART B May 15, 2000 PART B [id number] [id number] FANY LEMUS ON PATIENT Selected Encounter This section includes the information on record at [place] for the Encounter. Date/Time Encounter Type Encounter Description Reason Provider Source Jan 12, 2024 02:00 PM OFFICE O/P EST MOD 30 MIN PODIATRY ICD-10-CM L60.3 Nail dystrophy YULISA FOREMAN Encounter Template Text not used by [place] Assessments - Encounter Diagnoses This section includes the primary and secondary diagnoses documented for the Encounter. Date/Time Primary/Secondary Diagnosis Diagnosis Name Provider Source February 05, 2024 01:32 PM PRIMARY Nail dystrophy YULISA FOREMAN February 05, 2024 01:32 PM SECONDARY Corns and callosities YULISA FOREMAN February 05, 2024 01:32 PM SECONDARY Pain in left toe(s) YULISA FOREMAN February 05, 2024 01:32 PM SECONDARY Pain in right toe(s) YULISA FOREMAN February 05, 2024 01:32 PM SECONDARY Type 2 diabetes w diabetic peripheral angiopath w/o gangrene YULISA FOREMAN Plan of Treatment: Future Appointments (+ 6 months) and Future Tests (+/- 45 days) The Plan of Treatment section includes future care activities for the patient from all [place] [facility]. This section includes future appointments and future orders which are active, pending or scheduled. Future Appointments This section includes appointments that were scheduled to occur 6 months from the date of the Encounter, up to a maximum of 20 appointments. The data comes from all [place] treatment facilities. Appointment Date/Time Appointment Type Appointme nt Facility Name Mar 24, 2024 01:30 PM AMBULATORY - MEDICINE [place] [facility] [place] [facility] Mar 24, 2024 02:00 PM AMBULATORY - MEDICINE [place] [facility] [place] [place] [facility] Mar 31, 2024 11:00 AM AMBULATORY - REHAB MEDICIN [facility] [place] [facility] Mar 31, 2024 01:00 PM AMBULATORY - REHAB MEDICIN E [facility] [place] [facility] May 04, 2024 01:00 PM AMBULATORY - REHAB MEDICIN E [place] [facility] [place] [facility] Jun 03, 2024 11:30 AM AM[facility]ULATORY - MEDICINE [facility] Lab Results: +/- 30 days of the encounter This section includes the Chemistry and Hematology Lab Results on record with [place] for the patient. Radiology Reports and Pathology Reports are provided separately, in subsequent sections. Lab Results This section contains the Chemistry/Hematology Results that were resulted 30 days before or 30 daysafter the date of the Encounter. Date/Time Source Result Type Result - Unit Interpretation Reference Range Specimen Type Comment Dec 24, 2023 11:22 AM [facility] VITAMIN B12 SERUM Specimen Type: SERUM No comment entered. Ordering Provider: GILES FUENTES Report Released Date/Time: Dec 08, 2023 01:18 PM Reporting Lab: [address] [address] Performing Lab: [address] [address] VITAMIN B12 443 pg/mL 200-900 Dec 24, 2023 11:22 AM [facility] LIPID PANEL, NON FASTING SERUM Specimen Type: SERUM No comment entered. Ordering Provider: GILES FUENTES Report Released Date/Time: Dec 08, 2023 01:18 PM Reporting Lab: [facility] [address] [address] Performing Lab: [address] [address] CHOLESTEROL 120 mg/dL TRIGLYCERIDE 84 mg/dL 0-150 LDL calculated 56 mg/dL 0-129 CHOL/HDL 2.6 HDL CHOLESTEROL 47 mg/dL 40-60 Dec 24, 2023 11:22 AM [facility] BASIC METABOLIC PANEL (non-fasting) SERUM Spe cimen Type: SERUM No comment entered. Ordering Provider: GILES FUENTES Report Released Date/Time: Dec 08, 2023 01:18 PM Reporting Lab: [facility] [address] [address] Performing Lab: [address] [address] UREA NITROGEN 30 mg/dL H 7-25 GLUCOSE 88 mg/dL 65-100 SODIUM 141 mmol/L 135-145 POTASSIUM 4.7 mmol/L 3.5-5.0 CHLORIDE 106 mmol/L 100-110 CO2 26 meq/L 20-30 CREATININE, Serum 0.84 mg/dL 0.50-1.40 eGFR(CKD-EPI 2020) 83 mL/min >60 Dec 24, 2023 11:22 AM [facility] MAGNESIUM SERUM Specimen Type: SERUM No comment entered. Ordering Provider: GILES FUENTES Report Released Date/Time: Dec 08, 2023 01:18 PM Reporting Lab: [address] [address] Performing Lab: [address] [address] MAGNESIUM 2.0 mg/dL 1.6-2.6 Dec 24, 2023 11:22 AM [facility] LIVER FUNCTION SERUM Specimen Type: SERUM No comment entered. Ordering Provider: GILES FUENTES Report Released Date/Time: Dec 08, 2023 01:18 PM Reporting Lab: [facility] [address] [address] Performing Lab: [address] [address] PROTEIN,TOTAL 7.3 g/dL 6.0-8.3 ALBUMIN 3.6 g/dL 3.5-5.0 ALKALINE PHOSPHATASE 170 U/L H 40-150 AST 25 U/L 5-34 ALT 34 U/L BILIRUBIN, TOTAL 0.7 mg/dL 0.2-1.2 Dec 24, 2023 11:21 AM [facility] HEMOGLOBIN A1C PANEL BLOOD Specimen Type: BLO OD Comment: Values obtained from A1C measurements can vary. For atypical A1C assays, a reported value of 7.0 could actually be between 6.72 and 7.28 if measured by a reference method. A reported value of 9.0 could actually be between 8.73 and 9.27. Ref: http://www.ngsp.org/CAPdata.asp Ordering Provider: GILES FUENTES Report Released Date/Time: Oct 06, 2023 10:49 AM Reporting [facility]: [facility] [place] [place] [facility] [address] [address] Performing Lab: [facility] [address] [address] HEMOGLOBIN A1C 5.7 H 4.0-5.6 Dec 24, 2023 11:21 AM [facility] TSH SERUM Specimen Type: SERUM No comment entered. Ordering Provider: GILES FUENTES Report Released Date/Time: Oct 28, 2023 12:29 PM Reporting Lab: [facility] [address] [address] Performing Lab: [facility] [address] [address] TSH 1.40 u[IU]/mL 0.35-5.00 Social History: Smoking Status (Most current) and Tobacco Use (All prior to encounter date) This section includes the most current, and the historical, smoking and tobacco- related health factors from the [place] facility where the Encounter took place. Current Smoking Status This section includes the most current smoking, or tobacco-related health factor, from the [place] facility where the Encounter took place. Date/Time Current Smoking Status Comment Emily guerrero Aug 11, 2018 11:06 AM [facility] 15 Y[facility] Tobacco Use History This section includes a history of the smoking, or tobacco-related health factors, that were collected on or before the date of the Encounter. The data comes from the [place] facility where the Encounter took place. Date/Time Smoking Status/Tobacco Use Comment Clark achéctor Aug 11, 2018 11:06 AM [place]-TOBACCO QUIT 15 YRS OR MORE [facility] January 27, 2018 10:21 AM LIFETIME NON-TOBACCO USER [facility] Nov 10, 2016 10:18 AM QUIT TOBACCO USE > 7 YEARS AGO quit 20 years ago [facility] Sep 10, 2015 10:20 AM QUIT TOBACCO USE > 7 YEARS AGO [facility] Dec 08, 2005 02:29 PM QUIT TOBACCO USE > 7 YEARS AGO HX of tobacco use for approx 40 yrs. [facility] Advance Directives: All historical and current Section Date Range: From patient's date of to the date document was created. This section includes ALL of a patient's completed or amended [place] Advance and Rescinded Directives. The entries below indicate that a directive exists for the patient, but an actual copy is not included with this document. The data comes from all [place] facilities. Date Advance Directives Provider Source Nov 11, 2016 ADVANCE DIRECTIVE KYLERELROY YUSUF [place] [facility] [place] [facility] Jul 08, 2006 ADVANCE DIRECTIVE CHAPARRO D[facility] Encounter Notes: All associated encounter notes This section contains the clinical notes associated to the Encounter. Date/Time Encounter Note(s) Provider Source Jan 12, 2024 10:48 AM PODIATRY NOTE: LOCAL TITLE: PODIATRY NOTE STANDARD TITLE: PODIATRY NOTE DATE OF NOTE: JAN 12, 2024@10:48 ENTRY DATE: JAN 12, 2024@10:48:41 AUTHOR: YULISA FOREMAN COSIGNER: URGENCY: STATUS: COMPLETED NAME: SREEDHAR LEMUS DATE: JAN 12, 2024 : May PCP: GILES FUENTES NOTE: HAS RECEIVED BOTH COVID VACCINE DOSES + 4 BOOSTERS AT [facility] LAST SEEN: INITIAL CONSULT VISIT TODAY(WITH DR. FOREMAN) LAST SEEN BY DR. CORTEZ 10/06/2023) HPI: Pt. is a 88 yo alert WDWN CAUC MALE who presents for initial podiatric examination with Dr. Foreman for treatment of a presenting complaint of [...] 7. Chronic ischemic heart disease (SNOMED CT 955352182) 8. Coronary artery disease 9. Exudative age-related macular degeneration (SNOMED CT 416714548) 10. Gastroesophageal reflux disease without esophagitis 11. 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 Personal History of Colonic Polyps 13. Obesity 14. Essential hypertension (SNOMED CT 74035414) 15. Hyperlipidemia (SNOMED CT 77555052) 16. Osteoarthritis (SNOMED CT 086952252) 17. Chronic obstructive lung disease (SNOMED CT 96231881) 18. Prostate cancer (SNOMED CT 289782656) 19. Legal blindness (SNOMED CT 58147489) 20. H/O: tuberculosis 21. Asbestosis (SNOMED CT 61888047) *NOTE: REVIEWED ABOVE, NOTING NON-CONTRIBUTORY TO THE [...] present physical-medical status. Protective sensation utilizing a Woodward-Negrita lOg monofilament is 10/10 bilateral. BIOMECHANICAL: Exam [...] of active outpatient prescriptions dispensed from this [place] (local) and dispensed from another [place] or [facility] facility (remote) as well as inpatient [...] a VA or non-VA provider. /esthela/ YULISA FOREMAN DPM ENERGY EFFICIENT SITE MANAGER Signed: 01/12/2024 14:24 YULISA FOREMAN
--- OUTSIDE RECORDS SUMMARY | 2025-01-04 13:51 | XMS_ITS ---
Author Name [facility] of [facility] Affairs ([place]) Organization [facility] Address [address] [place] [id number] Care Team Providers Care Fishing Guide Name Role Phone GILES FUENTES Primary [...] CAREMARK PRESCRIPT ION GEHA Sep 14, 2014 [id number] [phone] FANY LEMUS ON PATIENT CAREMARK PRESCRIPT ION SUSI ATKINSON Sep 14, 2014 [id number] [phone] FANY LEMUS ON PATIENT CAREMARK PRESCRIPT ION Sep 14, 2014 [id number] [phone] ALLAN,MYR ON PATIENT GEHA (SECONDARY ) PREFERRED PROVIDER ORGANIZAT ION (PPO) HIGH OPTIO N MCR A&B Sep 14, 2005 [id number] ALLAN,MYR ON PATIENT GEHA (SECONDARY ) PREFERRED PROVIDER ORGANIZAT ION (PPO) GEHA CONNE CTION DENT Sep 14, 2005 [id number] ALLAN,MYR ON PATIENT GEHA FEHB PREFERRED PROVIDER ORGANIZAT ION (PPO) SUSI AL GOV Sep 14, 2005 [id number] ALTH [id number] ALLAN,MYR ON PATIENT GEHA FEHB PREFERRED PROVIDER ORGANIZAT ION (PPO) SUSI AL* Sep 14, 1989 [id number] ALTH [id number] ALLAN,MYR ON PATIENT GEHA-[facility] GEHA HIGH OPTIO N Sep 14, 2021 [id number] ALLAN,MYR ON PATIENT MEDICARE (WNR) MEDICARE (M) PART A May 15, 2000 PART A [id number] ALLAN,MYR ON PATIENT MEDICARE (WNR) MEDICARE () PART B May 15, 2000 PART B [id number] ALLAN,MYR ON PATIENT MEDICARE (WNR) MEDICARE () PART A May 15, 2000 PART A [id number] ALLAN,MYR ON PATIENT MEDICARE (WNR) MEDICARE (M) PART B May 15, 2000 PART B [id number] ALLAN,MYR ON PATIENT MEDICARE (WNR) MEDICARE (M) PART A May 15, 2000 PART A [id number] ALLAN,MYR ON PATIENT MEDICARE (WNR) MEDICARE (M) PART B May 15, 2000 PART B [id number] [phone] ALLAN,MYR ON PATIENT MEDICARE (WNR) MEDICARE (M) PART A May 15, 2000 PART A [id number] [phone] FANY LEMUS ON PATIENT MEDICARE (WNR) MEDICARE (M) PART B May 15, 2000 PART B [id number] FANY LEMUS ON PATIENT Selected Encounter This section includes the information on record at DC for the Encounter. Date/Time Encounter Type Encounter Description Reason Provider Source Dec 30, 2024 11:00 AM CASE MANAGEMENT [facility] Nursing (RN / LP) ICD-10-CM R53.1 Amanda ADALGISA PINA Verito Encounter Template Text not used by DC Assessments - Encounter Diagnoses This section includes the primary and secondary diagnoses documented for the Encounter. Date/Time Primary/Secondary Diagnosis Diagnosis Name Provider Source Jan 03, 2025 10:36 PM PRIMARY Weakness ADALGISA PINA [place] [facility] [place] [facility] Jan 03, 2025 10:36 PM SECONDARY Legal blindness, as defined in [place] BRIDGERANUP MORAADALGISA DC [facility] [place] [facility] Plan of Treatment: Future Appointments (+ 6 months) and Future Tests (+/- 45 days) The Plan of Treatment section includes future care activities for the patient [facility] This section includes future appointments and future orders which are active, pending or scheduled. Future Appointments This section includes appointments that were scheduled to occur 6 months from the date of the Encounter, up to a maximum of 20 appointments. The data comes from all [facility] facilities. Appointment Date/Time Appointment Type Appointme nt Facility Name Feb 24, 2025 11:30 AM AMBULATORY - MEDICINE [facility] Mar 23, 2025 11:00 AM AMBULATORY - REHAB MEDICIN E [place] [facility] [place] [facility] Mar 23, 2025 12:00 PM AMBULATORY - REHAB MEDICIN E [place] [facility] [place] [facility] Apr 13, 2025 02:30 PM [facility] Active, Pending, and Scheduled Orders This section includes a listing of several types of active, pending, and scheduled orders, including clinic medications orders, diagnostic test orders, procedure orders and consult orders; where the start date of the order is 45 days before the date of the Encounter or 45 days after the date of theEncounter. The data comes from all [place] treatment facilities. Test Date/Time Test Type Test Details Facility Name Dec 13, 2024 12:00 AM Laboratory - Chemistry Order HEMOGLOBIN A1C PANEL BLOOD (LAV-BLOOD) SP DC [facility] [place] [facility] Vital Signs: All taken on the encounter date This section contains inpatient and outpatient Vital Signs collected on the date of the Encounter. Date/Time Temperature Pulse Blood Pressure Respiratory Rate SP02 Pain Height Weight Body Mass Index Source Dec 30, 2024 11:00 AM 97.6 74 118/70 18 97 0 206 30 [place] [facility] [place] [facility] Social History: Smoking Status (Most current) and Tobacco Use (All prior to encounter date) This section includes the most current, and the historical, smoking and tobacco- related health factors from the DC facility where the Encounter took place. Current Smoking Status This section includes the most current smoking, or tobacco-related health factor, from the [place] facility where the Encounter took place. Date/Time Current Smoking Status Comment Facil ity Aug 31, 2024 01:52 PM VA-TOBACCO USE FOR BERNICE CIGARETTES [facility] Tobacco Use History This section includes a history of the smoking, or tobacco-related health factors, that were collected on or before the date of the Encounter. The data comes from the [place] facility where the Encounter took place. Date/Time Smoking Status/Tobacco Use Comment F acility Aug 31, 2024 01:52 PM VA-TOBACCO USE FOR BERNICE CIGARETTES [facility] [place] [facility] Sep 02, 2023 05:30 PM VA-TOBACCO FORMER USER DC [facility] [place] [facility] Sep 02, 2023 05:30 PM VA-TOBACCO QUIT 15 YRS OR MORE [facility] [place] [facility] Apr 24, 2022 01:00 PM VA-TOBACCO FORMER USER [facility] [place] [facility] Apr 24, 2022 01:00 PM VA-TOBACCO QUIT 15 YRS OR MORE [facility] [place] [facility] Dec 05, 2021 02:00 PM VA-TOBACCO USE DEC LINED TO ANSWER [facility] [place] [facility] Nov 24, 2021 04:05 PM VA-TOBACCO USE DEC LINED TO ANSWER [facility] [place] [facility] Sep 20, 2020 08:40 AM VA-TOBACCO NEVER USED DC [facility] [place] [facility] Advance Directives: All historical and current Section Date Range: From patient's date of to the date document was created. This section includes ALL of a patient's completed or amended DC Advance and Rescinded Directives. The entries below indicate that a directive exists for the patient, but an actual copy is not included with this document. The data comes from all [place] facilities. Date Advance Directives Provider Source Nov 11, 2016 ADVANCE DIRECTIVE ELROY CHÁVEZ DC [facility] Jul 08, 2006 ADVANCE DIRECTIVE CHAPARRO DICK [facility] Encounter Notes: All associated encounter notes This section contains the clinical notes associated to the Encounter. Date/Time Encounter Note(s) Provider Source Dec 30, 2024 11:00 AM HB NURSING NOTE: LOCAL TITLE: [facility] RN PROGRESS NOTE STANDARD TITLE: HB NURSING NOTE DATE OF NOTE: DEC 30, 2024@11:00 ENTRY DATE: JAN 03, 2025@22:16:16 AUTHOR: ADALGISA PINA EXP COSIGNER: URGENCY: STATUS: COMPLETED Nursing Progress Note [...] MOUTH ONCE ACTIVE DAILY FOR CHOLESTEROL 5) BRIMONIDINE 0.2%/BRINZOLAMID 1% OPH SUSP INSTILL 1 DROP INTO ACTIVE EACH EYE TWICE DAILY 6) CARBOXYMETHYLCELLULOSE NA 1% OPH GEL APPLY 1 DROP INTO EACH ACTIVE EYE TWICE DAILY Indication: FOR DRY EYE 7) CARVEDILOL 3.125MG TAB TAKE ONE TABLET [...] DAILY NEEDED Indication: FOR SEBORRHEIC DERMATITIS 11) KETOCONAZOLE 2% SHAMPOO SHAMPOO SMALL AMOUNT TOPICALLY ONCE ACTIVE DAILY Indication: FOR FUNGAL INFECTION OF THE SKIN 12) LATANOPROST 0.005% OPH SOLN INSTILL 1 DROP INTO EACH EYE AT ACTIVE BEDTIME 13) LOSARTAN 100MG TAB TAKE ONE TABLET BY MOUTH ONCE DAILY FOR ACTIVE BLOOD PRESSURE/HEART Indication: FOR HIGH BLOOD PRESSURE 14) MULTIVIT/OPHTH AREDS2/LUTE/ZEAX CAP/TAB TAKE 1 CAPSULE BY ACTIVE MOUTH TWICE DAILY IN THE MORNING AND EVENING, WITH FOOD 15) PRIMIDONE 50MG TAB TAKE ONE TABLET BY MOUTH THREE TIMES A ACTIVE DAY 16) TIMOLOL MALEATE 0.5% OPH SOLN INSTILL 1 DROP INTO EACH EYE ACTIVE TWICE DAILY 17) TORSEMIDE 20MG TAB TAKE ONE TABLET BY MOUTH ONCE DAILY ACTIVE 18) TRELEGY ELLIPTA 200/62.5/25MCG INH 30D INHALE 1 INHALATION ACTIVE BY MOUTH ONCE DAILY Indication: FOR COPD Active Non-VA Medications Status 1) Non-VA OXYGEN [...] home: 45 min Problem addressed for this visit:Weakness, Blindness, Med compliance NURSING SUMMARY:Visit made to [place] at home for assessment, med prefill. and Kely present. [place] feeling well. No recent sx's of illness. Had a fall in the front yard while trying to fix the flag on the flag pole. Lost balance and fell into the vila which broke his fall, he landed on the sidewalk on his buttocks. Denies injury. Son came over and was able to pick him up. Israel was advised to avoid doing these types of jobs around the house due to him falling outside quite often. [place] insists on doing these as he feels they are simple and he usually does not fall. [place] is otherwise doing well. They have gone to [employer] 1-2x a week for lunch and [place] enjoys this, he meets people and talks a lot about his experience etc. Kely reports he really enjoys going there. [place] was seen by his community PCP, no med changes. This was his yearly visit. has retired, he has a new provider. [place] only plans to go there once a year. [place] has endocrine appt next week, was told he had a growth on his thyroid. [place] has follow up appt with urology scheduled in the next month and was seen by Cardiology 2 months ago. [place] was seen by bulk tank car unloader last month, he had follow up chest CT scan, this is how the nodule on thyroid was found. No changes to medications. To cont. on oxygen at night and as needed during the day. [place] sleeping in his recliner. He does not want to put the heat on upstairs. He plans to go upstairs in the nicer weather. 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 Kely wishes he would accept some help, but he refuses. Will continue to offer services. Medications prefilled for 2 weeks as ordered. Blood Pressure: 118/70 (12/30/2024 11:00) Pulse: 74 (12/30/2024 11:00) Respiration: 18 (12/30/2024 11:00) Temperature: 97.6 F [36.4 C] (12/30/2024 11:00) Pain Score: 0 (12/30/2024 11:00) EXAMINATION: Lungs: clear Edema: no edema HR: reg, denies chest pain Bowel/Bladder: urine clear, occ incontinence. BM's every day or every other day Skin: intact skin If pain score is above 0/10: Are you having any new pain or worsening chronic pain? No Are you satisfied with your current pain management plan? Home Safety USES WHITE CANE WHEN GOES OUT. Home Oxygen Safety Checklist Issue YES/NO Res 01/29/2015 Does patient smoke No Comments: Does anyone in household smoke Yes Comments: SMOKES OUTSIDE Evidence of smoking material, i.e. bulldozer mechanic, cigarettes Yes Comments: Cooks or heats with [...] not use oil based products Yes Comments: Assessment Results (Check Yes or No for above assessment): Pt./Family/others educated on fire risks related to use of home Oxygen, i.e. oxygen source too close to heat/open flames, tanks stored improperly. Educated on fire risks to other residents and/or neighbors related to unsafe use of home oxygen. Pt./family/other verbalized understanding of education provided. No Deficiencies noted FALLS yes, see Falls note INFECTIONS NO ER/HOSPITALIZATIONS NO Teaching/goals: HAS ONGOING COMPLEX MEDICAL NEEDS. BENEFITS FROM ONGOING [facility] INTERDISCIPLINARY MGT. AND MEDICAL OVERSIGHT. AND CAREGIVER ARE INCLUDED IN DECISION MAKING. EDUCATION PROVIDED REGARDING MEDICATIONS, DISEASE MGT. WILL BE FREE FROM FALLS, INFECTIONS AND HOSPITALIZATIONS IN THE NEXT 30 DAYS. Patient verbalizes understanding to above and will call with any concerns or changes in condition. For emergent care call 911. Plan for next visit: January, ASSESSMENT, MED PREFILL. /esthela/ Adalgisa DALY staff trainer Signed: 01/03/2025 22:36 ADALGISA PINA DC [facility]
--- OUTSIDE RECORDS SUMMARY | 2025-01-04 13:51 | XMS_ITS ---
Author Name [facility] [place] [facility] [place] Address [address] [place] [id number] Care Team Providers Care [employer] Structural Engineer Name Role Phone GILES FUENTES Primary [...] CAREMARK PRESCRIPT ION GEHA Sep 14, 2014 [id number] [phone] FANY LEMUS ON PATIENT CAREMARK PRESCRIPT ION SUSI ATKINSON Sep 14, 2014 [id number] [phone] FANY LEMUS ON PATIENT CAREMARK PRESCRIPT ION Sep 14, 2014 [id number] [phone] ALLAN,MYR ON PATIENT GEHA (SECONDARY ) PREFERRED PROVIDER ORGANIZAT ION (PPO) HIGH OPTIO N [facility] A&B Sep 14, 2005 [id number] ALLAN,MYR ON PATIENT GEHA (SECONDARY ) PREFERRED PROVIDER ORGANIZAT ION (PPO) GEHA CONNE CTION DENT Sep 14, 2005 [id number] ALLAN,MYR ON PATIENT GEHA FEHB PREFERRED PROVIDER ORGANIZAT ION (PPO) SUSI AL GOV Sep 14, 2005 [id number] ALTH [id number] [phone] ALLAN,MYR ON PATIENT GEHA FEHB PREFERRED PROVIDER ORGANIZAT ION (PPO) SUSI AL* Sep 14, 1989 [id number] ALTH [id number] ALLAN,MYR ON PATIENT GEHA-[facility] GEHA HIGH OPTIO N Sep 14, 2021 [id number] ALLAN,MYR ON PATIENT MEDICARE (WNR) MEDICARE (M) PART A May 15, 2000 PART A [id number] ALLAN,MYR ON PATIENT MEDICARE (WNR) MEDICARE (M) PART B May 15, 2000 PART B [id number] ALLAN,MYR ON PATIENT MEDICARE (WNR) MEDICARE (M) PART A May 15, 2000 PART A [id number] ALLAN,MYR ON PATIENT MEDICARE (WNR) MEDICARE (M) PART B May 15, 2000 PART B [id number] ALLAN,MYR ON PATIENT MEDICARE (WNR) MEDICARE (M) PART A May 15, 2000 PART A [id number] [phone] ALLAN,MYR ON PATIENT MEDICARE (WNR) MEDICARE (M) PART B May 15, 2000 PART B [id number] ALLAN,MYR ON PATIENT MEDICARE (WNR) MEDICARE (M) PART A May 15, 2000 PART A [id number] [phone] FANY LEMUS ON PATIENT MEDICARE (WNR) MEDICARE (M) PART B May 15, 2000 PART B [id number] FANY LEMUS ON PATIENT Selected Encounter This section includes the information on record at [place] for the Encounter. Date/Time Encounter Type Encounter Description Reason Provider Source Jun 01, 2024 01:00 PM MEASURE BLOOD OXYGEN LEVEL [facility] Nursing (RN / LP) ICD-10-CM I25.9 Chronic ischemic heart disease, unspecified [facility] Encounter Template Text not used by [place] Assessments - Encounter Diagnoses This section includes the primary and secondary diagnoses documented for the Encounter. 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 Jun 05, 2024 02:06 PM SECONDARY Other specified chronic obstructive pulmonary disease [facility] Plan of Treatment: Future Appointments (+ 6 months) and Future Tests (+/- 45 days) The Plan of Treatment section includes future care activities for the patient from all [place] treatmentfacilities. This section includes future appointments and future orders which are active, pending or scheduled. Future Appointments This section includes appointments that were scheduled to occur 6 months from the date of the Encounter, up to a maximum of 20 appointments. The data comes from all [place] treatment facilities. Appointment Date/Time Appointment Type Appointme nt Facility Name Jun 03, 2024 11:30 AM AMBULATORY - MEDIC[facility] Sep 26, 2024 10:00 AM AMBULATORY - REHAB [facility] Oct 21, 2024 11:30 AM AMBULATORY - MED[facility] Vital Signs: All taken on the encounter date This section contains inpatient and outpatient Vital Signs collected on the date of the Encounter. Date/Time Temperature Pulse Blood Pressure Respiratory Rate SP02 Pain Height Weight Body Mass Index Source Jun 01, 2024 04:09 PM 97.7 54 118/60 18 96 0 201 29 [place] [facility] [place] [facility] Social History: Smoking Status (Most current) and Tobacco Use (All prior to encounter date) This section includes the most current, and the historical, smoking and tobacco- related health factors from the [place] facility where the Encounter took place. Current Smoking Status This section includes the most current smoking, or tobacco-related health factor, from the [place] facility where the Encounter took place. Date/Time Current Smoking Status Comment Facil ity Sep 02, 2023 05:30 PM VA-TOBACCO FORMER USER [place] [facility] [place] [facility] Tobacco Use History This section includes a history of the smoking, or tobacco-related health factors, that were collected on or before the date of the Encounter. The data comes from the [place] facility where the Encounter took place. Date/Time Smoking Status/Tobacco Use Comment F acility Sep 02, 2023 05:30 PM VA-TOBACCO QUIT 15 YRS OR MORE [place] [facility] [place] [facility] Apr 24, 2022 01:00 PM VA-TOBACCO FORMER USER [place] [facility] [place] [facility] Apr 24, 2022 01:00 PM VA-TOBACCO QUIT 15 YRS OR MORE [place] [facility] [place] [facility] Dec 05, 2021 02:00 PM VA-TOBACCO USE DEC LINED TO ANSWER [place] [facility] [place] [facility] Nov 24, 2021 04:05 PM VA-TOBACCO USE DEC LINED TO ANSWER [place] [facility] [place] [facility] Sep 20, 2020 08:40 AM VA-TOBACCO NEVER USED [place] [facility] [place] [facility] Advance Directives: All historical and current Section Date Range: From patient's date of to the date document was created. This section includes ALL of a patient's completed or amended [place] Advance and Rescinded Directives. The entries below indicate that a directive exists for the patient, but an actual copy is not included with this document. The data comes from all [place] facilities. Date Advance Directives Provider Source Nov 11, 2016 ADVANCE DIRECTIVE ELROY CHÁVEZ [place] [facility] [place] [facility] Jul 08, 2006 ADVANCE DIRECTIVE CHAPARRO DICKT [facility] Encounter Notes: All associated encounter notes This section contains the clinical notes associated to the Encounter. Date/Time Encounter Note(s) Provider Source Jun 09, 2024 03:47 PM ADDENDUM: LOCAL TITLE: Addendum STANDARD TITLE: ADDENDUM DATE OF NOTE: JUN 09, 2024@15:47:27 ENTRY DATE: JUN 09, 2024@15:47:27 AUTHOR: ADALGISA PINA COSIGNER: URGENCY: STATUS: COMPLETED Telephone call to [place] today to see if RN visit is needed , spoke with Kely , reviewed recent BP/P readings. She reports they checked heart rate a few times, has not checked BP. Heart rate 48, 52, 54 and 70. Tucker feeling well. No changes since RN visit. She denies need for RN visit today. Reviewed changes in heart rate with [facility] MACHINE SILVER STRIPPER. Plan to ask [facility] to do EKG. Tucker has appt there on Jun 24. Left message with [facility] requesting EKG appt. and reviewed the above concerns. Awaiting call back. Spoke with TUSHAR Schaffer in [facility] office,notified of changes in 's heart rate, verified medications. she will review with and call this sheet writer back if they want to see Tucker sooner and/or order EKG. Advised Kely to continue to monitor heart rate and also to check BP. We reviewed reasons Tucker should be seen in ER or call 911. Kely verbalizes understanding. /esthela/ Adalgisa Pina RN [facility] production supply equipment tender Signed: 06/09/2024 15:49 Receipt Acknowledged By: 06/13/2024 08:04 /esthela/ GILES FUENTES [facility] NURSE PRACTITIONER --- Original Document --- 06/01/24 [...] [place] at home for assessment, med prefill. Tucker and sig.other Kely present during visit. [place] has been doing well. Had circumcision done a few days ago at [facility], went well, no complications. Area is tender, but tolerable, did not want this sheet writer to look at the area. Applying bacitracin a few times a day as advised by urologist. He is voiding without difficulty. Medications prefilled for 3 weeks as ordered. No recent changes to meds. Noted decrease in heart rate, [place] has been running in 88-94 range, now he is low 50's. [place] has no sx's. Remains on Carvedilol 3.125mg BID. Call placed to [facility], appt was given for 06/22. [place] will monitor heart rate, BP and O2 sats, this sheet writer will revisit next week. We discussed [...] Nida garnica. /esthela/ Adalgisa Pina RN [facility] production supply equipment tender Signed: 06/05/2024 14:06 ADALGISA PINA [place] [facility] Jun 01, 2024 01:00 PM [facility] NURSING [...] in patient's home at time of visit. [place] identified by: Facial Recognition Length of visit in home:60 min Problem addressed for this visit:Blindness, Med Compliance, CAD, COPD NURSING SUMMARY:Visit made to [place] at home for assessment, med prefill. and sig.other Kely present during visit. [place] has been doing well. Had circumcision done a few days ago at [facility], went well, no complications. Area is tender, but tolerable, did not want this sheet writer to look at the area. Applying bacitracin a few times a day as advised by urologist. He is voiding without difficulty. Medications prefilled for 3 weeks as ordered. No recent changes to meds. Noted decrease in heart rate, [place] has been running in 88-94 range, now he is low 50's. [place] has no sx's. Remains on Carvedilol 3.125mg BID. Call placed to [facility], appt was given for 06/22. [place] will monitor heart rate, BP and O2 sats, this sheet writer will revisit next week. We discussed [...] INFECTIONS NO ER/HOSPITALIZATIONS NO Teaching/goals:Continue with ongoing [facility] plan of care and medical oversight. Monitor heart rate. Reviewed medications and dosages. Reviewed topical skin care to circumcision site. Patient verbalizes understanding to above and will call with any concerns or changes in condition. For emergent care call 911. Plan for next visit:one week, cardiac assessment. Covid injection. /esthela/ Adalgisa Pina RN [facility] production supply equipment tender Signed: 06/05/2024 14:06 06/09/2024 ADDENDUM STATUS: COMPLETED Telephone call to today to see if RN visit is needed , spoke with Kely , reviewed recent BP/P readings. She reports they checked heart rate a few times, has not checked BP. Heart rate 48, 52, 54 and 70. Tucker feeling well. No changes since RN visit. She denies need for RN visit today. Reviewed changes in heart rate with [facility] MACHINE SILVER STRIPPER. Plan to ask [facility] to do EKG. Tucker has appt there on Jun 24. Left message with [facility] requesting EKG appt. and reviewed the above concerns. Awaiting call back. Spoke with TUSHAR Schaffer in [facility] office,notified of changes in Tucker's heart rate, verified medications. she will review with and call this sheet writer back if they want to see Tucker sooner and/or order EKG. Advised Kely to continue to monitor heart rate and also to check BP. We reviewed reasons Tucker should be seen in ER or call 911. Kely verbalizes understanding. /esthela/ Adalgisa Pina RN [facility] production supply equipment tender Signed: 06/09/2024 15:49 Receipt Acknowledged By: * AWAITING SIGNATURE * GILES FUENTES [facility]
--- OUTSIDE RECORDS SUMMARY | 2025-01-04 13:52 | XMS_ITS ---
Author Name [facility] of [facility] ([place] Organization [facility] Address [address] [place] [address] Care Team Providers Care Special Education Aide Name Role Phone GILES FUENTES Primary Care [...] Policy Mccullough's Name Patient's Relationship to Policy Mcculolugh CAREMARK PRESCRIPT ION GEHA Sep 14, 2014 [id number] [phone] FANY LEMUS ON PATIENT CAREMARK PRESCRIPT ION SUSI ATKINSON Sep 14, 2014 [id number] [phone] FANY LEMUS ON PATIENT CAREMARK PRESCRIPT ION Sep 14, 2014 [id number] ALLAN,MYR ON PATIENT GEHA (SECONDARY ) PREFERRED PROVIDER ORGANIZAT ION (PPO) HIGH OPTIO N [facility] A&B Sep 14, 2005 [id number] ALLAN,MYR ON PATIENT GEHA (SECONDARY ) PREFERRED PROVIDER ORGANIZAT ION (PPO) GEHA CONNE CTION DENT Sep 14, 2005 [id number] ALLAN,MYR ON PATIENT GEHA FEHB PREFERRED PROVIDER ORGANIZAT ION (PPO) SUSI AL GOV Sep 14, 2005 [id number] ALTH [id number] ALLAN,MYR ON PATIENT GEHA FEHB PREFERRED PROVIDER ORGANIZAT ION (PPO) SUSI AL* Sep 14, 1989 [id number] ALTH [id number] ALLAN,MYR ON PATIENT GEHA-BEHAV [facility] HEALTH GEHA HIGH OPTIO N Sep 14, 2021 [id number] ALLAN,MYR ON PATIENT MEDICARE (WNR) MEDICARE (M) PART B May 15, 2000 PART B [id number] ALLAN,MYR ON PATIENT MEDICARE (WNR) MEDICARE (M) PART A May 15, 2000 PART A [id number] ALLAN,MYR ON PATIENT MEDICARE (WNR) MEDICARE (M) PART A May 15, 2000 PART A [id number] ALLAN,MYR ON PATIENT MEDICARE (WNR) MEDICARE (M) PART B May 15, 2000 PART B [id number] ALLAN,MYR ON PATIENT MEDICARE (WNR) MEDICARE (M) PART A May 15, 2000 PART A [id number] ALLAN,MYR ON PATIENT MEDICARE (WNR) MEDICARE (M) PART B May 15, 2000 PART B [id number] ALLAN,MYR ON PATIENT MEDICARE (WNR) MEDICARE (M) PART A May 15, 2000 PART A [id number] FANY LEMUS ON PATIENT MEDICARE (WNR) MEDICARE (M) PART B May 15, 2000 PART B [id number] FANY LEMUS ON PATIENT Selected Encounter This section includes the information on record at [place] for the Encounter. Date/Time Encounter Type Encounter Description Reason Provider Source Oct 13, 2024 03:37 PM SELF CARE MNGMENT TRAINING [facility] Nursing (RN / LP) ICD-10-CM J44.89 Other specified chronic obstructive pulmonary disease ANUP MCNAIRTCHEN [facility] Encounter Template Text not used by [place] Assessments - Encounter Diagnoses This section includes the primary and secondary diagnoses documented for the Encounter. 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 This section includes future appointments and future orders which are active, pending or scheduled. Future Appointments This section includes appointments that were scheduled to occur 6 months from the date of the Encounter, up to a maximum of 20 appointments. The data comes from all [place] treatment facilities. Appointment Date/Time Appointment Type Appointme nt Facility Name Oct 21, 2024 11:30 AM AMBULATORY - MEDICINE [facility] Feb 24, 2025 11:30 AM AMBULATORY - MEDICINE [facility] Mar 23, 2025 11:00 AM AMBULATORY - [facility] Mar 23, 2025 12:00 PM AMBULATORY - [facility] MED[facility] Active, Pending, and Scheduled Orders This section includes a listing of several types of active, pending, and scheduled orders, including clinic medications orders, diagnostic test orders, procedure orders and consult orders; where the start date of the order is 45 days before the date of the Encounter or 45 days after the date of theEncounter. The data comes from all [place] treatment facilities. Test Date/Time Test Type Test Details Facility Name Aug 30, 2024 12:00 AM Laboratory - Chemistry Order BNP (Natriuretic Peptide Brain) BLOOD (LAV-PLASMA) [facility] Aug 30, 2024 12:00 AM Laboratory - Chemistry Order BASIC METABOLIC PANEL (non-fasting) BLOOD (SST-SERUM) [facility] Oct 17, 2024 08:00 AM Laboratory - Chemistry Order HEMOGLOBIN A1C PANEL BLOOD (LAV-BLOOD) [facility] Lab Results: +/- 30 days of the encounter This section includes the Chemistry and Hematology Lab Results on record with [place] for the patient. Radiology Reports and Pathology Reports are provided separately, in subsequent sections. Lab Results This section contains the Chemistry/Hematology Results that were resulted 30 days before or 30 daysafter the date of the Encounter. Date/Time Source Result Type Result - Unit Interpretation Reference Range Specimen Type Comment Oct 21, 2024 11:05 AM [facility] VITAMIN D (25-OH) SERUM Specimen Type: SERUM No comment entered. Ordering Provider: GILES FUENTES Report Released Date/Time: Sep 02, 2024 08:56 AM Reporting Lab: [facility] [address] [facility] [address] Performing Lab: [address] [address] VITAMIN D (25-OH) 39 ng/mL -50 Oct 21, 2024 11:05 AM [facility] PTH INTACT SERUM Specimen Type: SERUM No comment entered. Ordering Provider: GILES FUENTES Report Released Date/Time: Sep 02, 2024 08:56 AM Reporting Lab: [facility] [address] [facility] [facility] [address] Performing Lab: [address] [address] PTH INTACT 77.4 pg/mL H 8.7-77.1 Oct 21, 2024 11:05 AM [facility] MICROALBUMIN CREATININE RATIO PANEL URINE Spe cimen Type: URINE No comment entered. Ordering Provider: GILES FUENTES Report Released Date/Time: Sep 02, 2024 08:56 AM Reporting Lab: [facility] [address] [facility] [facility] [address] Performing Lab: [facility] [address] [facility] [facility] [address] MICROALBUMIN/CREATININE RATIO 11.9 mg/g 0-29.9 MICROALBUMIN,QUANTITATIVE 2.4 mg/dL RR U NAVAIL CREATININE URINE 202.37 mg/dL Oct 21, 2024 11:05 AM [facility] LIVER FUNCTION SERUM Specimen Type: SERUM No comment entered. Ordering Provider: GILES FUENTES Report Released Date/Time: Sep 02, 2024 08:56 AM Reporting Lab: [facility] [address] [facility] [address] Performing Lab: [facility] [address] [facility] [address] PROTEIN,TOTAL 7.8 g/dL 6.0-8.3 ALBUMIN 3.9 g/dL 3.5-5.0 ALKALINE PHOSPHATASE 160 U/L H 40-150 AST 22 U/L 5-34 ALT 28 U/L BILIRUBIN, TOTAL 0.8 mg/dL 0.2-1.2 Oct 21, 2024 11:05 AM [facility] LIPID PANEL, NON FASTING SERUM Specimen Type: SERUM No comment entered. Ordering Provider: GILES FUENTES Report Released Date/Time: Sep 02, 2024 08:58 AM Reporting Lab: [facility] [address] [facility] [address] Performing Lab: [facility] [address] [facility] [facility] [address] CHOLESTEROL 139 mg/dL TRIGLYCERIDE 129 mg/dL 0-150 LDL calculated 69 mg/dL 0-129 CHOL/HDL 3.2 HDL CHOLESTEROL 44 mg/dL 40-60 Oct 21, 2024 11:05 AM [facility] BASIC METABOLIC PANEL (non-fasting) SERUM Spe cimen Type: SERUM No comment entered. Ordering Provider: GILES FUENTES Report Released Date/Time: Sep 02, 2024 08:56 AM Reporting Lab: [facility] [address] [facility] [facility] [address] Performing Lab: [address] [address] UREA NITROGEN 32 mg/dL H 7-25 GLUCOSE 122 mg/dL H 65-100 SODIUM 140 mmol/L 135-145 POTASSIUM 4.9 mmol/L 3.5-5.0 CHLORIDE 104 mmol/L 100-110 CO2 27 meq/L 20-30 CREATININE, Serum 1.06 mg/dL 0.50-1.40 eGFR(CKD-EPI 2020) 67 mL/min >60 Oct 21, 2024 11:05 AM [facility] CBC BLOOD Specimen Type: BLOOD No comment entered. Ordering Provider: GILES FUENTES Report Released Date/Time: Sep 02, 2024 08:56 AM Reporting Lab: [address] [address] Performing Lab: [address] [address] WBC 8.46 10*3/uL 4.50-11.00 RBC 4.86 10*6/uL 4.23-5.66 HGB 14.9 g/dL 12.8-17 HCT 45.7 39.2-50.4 MCV 94.0 fL 82-99 MCHC 32.6 g/dL 30.8-35.1 PLT 180 10*3/uL 140-360 RDW-CV 12.9 12.0-16.0 MCH 30.7 pg 26.2-32.6 Oct 21, 2024 11:05 AM [facility] GAMMA-GTP SERUM Specimen Type: SERUM No comment entered. Ordering Provider: GILES FUENTES Report Released Date/Time: Oct 21, 2024 03:59 PM Reporting Lab: [address] [place] [address] Performing Lab: [place] [facility] [place] [facility] [address] [facility] [facility] [address] GAMMA-GTP 116 U/L H 10-65 Oct 12, 2024 01:30 PM [facility] PSA SERUM Specimen Type: SERUM No comment entered. Ordering Provider: GILES FUENTES Report Released Date/Time: Oct 12, 2024 01:21 PM Reporting Lab: [place] [facility] [place] [facility] [address] [facility] [address] Performing Lab: [place] [facility] [address] [facility] [facility] [address] PSA 36.05 ng/mL H 0.00-4.00 Social History: Smoking Status (Most current) and Tobacco Use (All prior to encounter date) This section includes the most current, and the historical, smoking and tobacco- related health factors from the [place] facility where the Encounter took place. Current Smoking Status This section includes the most current smoking, or tobacco-related health factor, from the [place] facility where the Encounter took place. Date/Time Current Smoking Status Comment Facil ity Aug 31, 2024 01:52 PM VA-TOBACCO USE FOR BERNICE CIGARETTES [facility] Tobacco Use History This section includes a history of the smoking, or tobacco-related health factors, that were collected on or before the date of the Encounter. The data comes from the [place] facility where the Encounter took place. Date/Time Smoking Status/Tobacco Use Comment F acility Aug 31, 2024 01:52 PM VA-TOBACCO USE FOR BERNICE CIGARETTES [place] [facility] [place] [facility] Sep 02, 2023 05:30 PM VA-TOBACCO FORMER USER [place] [facility] [place] [facility] Sep 02, 2023 05:30 PM VA-TOBACCO QUIT 15 YRS OR MORE [place] [facility] [place] [facility] Apr 24, 2022 01:00 PM VA-TOBACCO FORMER USER [place] [facility] [place] [facility] Apr 24, 2022 01:00 PM VA-TOBACCO QUIT 15 YRS OR MORE [place] [facility] [place] [facility] Dec 05, 2021 02:00 PM VA-TOBACCO USE DEC LINED TO ANSWER [place] [facility] [place] [facility] Nov 24, 2021 04:05 PM VA-TOBACCO USE DEC LINED TO ANSWER [facility] Sep 20, 2020 08:40 AM VA-TOBACCO NEVER USED [facility] Advance Directives: All historical and current Section Date Range: From patient's date of to the date document was created. This section includes ALL of a patient's completed or amended [place] Advance and Rescinded Directives. The entries below indicate that a directive exists for the patient, but an actual copy is not included with this document. The data comes from all [place] facilities. Date Advance Directives Provider Source Nov 11, 2016 ADVANCE DIRECTIVE ELROY CHÁVEZ [facility] Jul 08, 2006 ADVANCE DIRECTIVE [...] OCT 13, 2024@15:37:54 AUTHOR: ADALGISA MCNAIR EXP KEARAIGNER: URGENCY: STATUS: COMPLETED [facility] RN PROGRESS NOTE [...] tolerated well. Results to be faxed to [facility]. NURSING SUMMARY:VISIT MADE TO ROGELIO AT HOME FOR ASSESSMENT, LABS AND MED PREFILL. HAS BEEN FEELING WELL. NO RECENT FALLS. DENIES PAIN. NO ER VISITS. ROGELIO HAS UROLOGY APPT ON 10/17, PSA DRAWN TODAY, RESULTS TO BE FAXED TO U. ROGELIO REPORTS HE HAS BEEN USING BREZTRI MDI AND HE DOES NOT LIKE IT AND FEELS IT IS NOT EFFECTIVE TRELEGY. ROGELIO AND SOLOMON REPORT FEELS WINDED, SHORT OF BREATH IN THE LATE AFTERNOONS WHICH DID NOT HAPPEN WHEN HE WAS USING TRELEGY. THIS [employer]OR AND [employer]OY[employer] WILL ALERT PCP. ROGELIO HAS PULMONOLOGY APPT NEXT MONTH WITH . WAITING TO HEAR ON CHEST CT RESULTS. COMPLIANT WITH TAKING MEDS. PREFILLED FOR 4 WEEKS IN MED BOXES. WAS SEEN BY , WAS SUGGESTED USE REFRESH GEL DROPS AT NIGHT. ASKING IF THE HI PCP CAN ORDER THIS. CONT. WITH OXYGEN AT HS ONLY. THIS LABOR AND EM[employer]OY[employer] SUGGESTED WE UTILIZE MEDIA RELATIONS DIRECTOR TO ASSIST WITH FOOT CARE, SHOWERS AND SOME HOUSEKEEPING UPSTAIRS. SLEEPS UPSTAIRS AND USES THE UPSTAIRS BATHROOM, [...] AND COULD USE LOTION MORE OFTEN. REFUSES MEDIA RELATIONS DIRECTOR, HE STATES IT IS NOT NECESSARY. THIS [employer] WILL CONT. TO OFFER THESE SERVICES. DUE [...] SMOKES OUTSIDE Evidence of smoking material, i.e. 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 BENEFITS FROM ONGOING HB INTERDISCIPLINARY MGT. AND MEDICAL OVERSIGHT. AND CAREGIVER [...] PULMONOLOGY VISITS. /esthela/ Adalgisa Mcnair RN [facility] airline customer service agent Signed: 10/13/2024 20:11 10/13/2024 ADDENDUM STATUS: COMPLETED PSA 36 FROM 10/12, FAXED TO [facility] UROLOGY. WILL HAVE THE OTHER LABS ORDERED DRAWN WHILE HE IS ON [facility] APPT ON 10/21. /esthela/ Adalgisa DALY airline customer service agent Signed: 10/13/2024 20:14 ADALGISA MCNAIR [facility]
--- OUTSIDE RECORDS SUMMARY | 2025-01-04 13:52 | XMS_ITS | Encounter Summary ---
Author Name [facility] [place] Organization [place] Address [address] [place] [id number] Care Team Providers Care Kiosk Sales Representative Name Role Phone GILES FUENTES Primary Care [...] CAREMARK PRESCRIPT ION GEHA Sep 14, 2014 [id number] FANY LEMUS ON PATIENT CAREMARK PRESCRIPT ION SUSI ATKINSON Sep 14, 2014 [id number] [phone] FANY LEMUS ON PATIENT CAREMARK PRESCRIPT ION Sep 14, 2014 [id number] [phone] ALLAN,MYR ON PATIENT GEHA (SECONDARY ) PREFERRED PROVIDER ORGANIZAT ION (PPO) HIGH OPTIO N [facility] A&B Sep 14, 2005 [id number] ALLAN,MYR ON PATIENT GEHA (SECONDARY ) PREFERRED PROVIDER ORGANIZAT ION (PPO) GEHA CONNE CTION DENT Sep 14, 2005 [id number] ALLAN,MYR ON PATIENT GEHA FEHB PREFERRED PROVIDER ORGANIZAT ION (PPO) SUSI AL GOV Sep 14, 2005 [id number] ALTH [id number] ALLAN,MYR ON PATIENT GEHA FEHB PREFERRED PROVIDER ORGANIZAT ION (PPO) SUSI AL* Sep 14, 1989 [id number] ALTH [id number] [id number] ALLAN,MYR ON PATIENT [facility]HA[facility] GEHA HIGH OPTIO N Sep 14, 2021 [id number] [phone] ALLAN,MYR ON PATIENT MEDICARE (WNR) MEDICARE (M) PART A May 15, 2000 PART A [id number] ALLAN,MYR ON PATIENT MEDICARE (WNR) MEDICARE (M) PART B May 15, 2000 PART B [id number] ALLAN,MYR ON PATIENT MEDICARE (WNR) MEDICARE (M) PART A May 15, 2000 PART A [id number] ALLAN,MYR ON PATIENT MEDICARE (WNR) MEDICARE (M) PART B May 15, 2000 PART B [id number] ALLAN,MYR ON PATIENT MEDICARE (WNR) MEDICARE (M) PART B May 15, 2000 PART B [id number] ALLAN,MYR ON PATIENT MEDICARE (WNR) MEDICARE (M) PART A May 15, 2000 PART A [id number] [phone] [id number] ALLAN,MYR ON PATIENT MEDICARE (WNR) MEDICARE (M) PART A May 15, 2000 PART A [id number] FANY LEMUS ON PATIENT MEDICARE (WNR) MEDICARE (M) PART B May 15, 2000 PART B [id number] FANY LEMUS ON PATIENT Selected Encounter This section includes the information on record at [place] for the Encounter. Date/Time Encounter Type Encounter Description Reason Provider Source Apr 21, 2024 02:00 PM MEASURE BLOOD OXYGEN LEVEL [facility] Nursing (RN / LP) ICD-10-CM I25.9 Chronic ischemic heart disease, unspecified ADALGISA MCNAIR Verito Encounter Template Text not used by [place] Assessments - Encounter Diagnoses This section includes the primary and secondary diagnoses documented for the Encounter. Date/Time Primary/Secondary Diagnosis Diagnosis Name Provider Source Apr 22, 2024 12:16 AM PRIMARY Chronic ischemic heart disease, unspecified FRANSICO MCNAIR [place] [facility] Apr 22, 2024 12:16 AM SECONDARY Carcinoma in situ of prostate FRANSICO MCNAIR [place] [facility] Apr 22, 2024 12:16 AM SECONDARY Essential (primary) hypertension FRANSICO MCNAIR [place] [facility] Apr 22, 2024 12:16 AM SECONDARY Other specified chronic obstructive pulmonary disease [facility] Plan of Treatment: Future Appointments (+ 6 months) and Future Tests (+/- 45 days) The Plan of Treatment section includes future care activities for the patient from all [place] treatmentfacilities. This section includes future appointments and future orders which are active, pending or scheduled. Future Appointments This section includes appointments that were scheduled to occur 6 months from the date of the Encounter, up to a maximum of 20 appointments. The data comes from all [place] treatment facilities. Appointment Date/Time Appointment Type Appointme nt Facility Name May 04, 2024 01:00 PM AMBULATORY - REHAB MEDICIN E [place] [facility] Jun 03, 2024 11:30 AM AMBULATORY - MEDICINE [facility] Sep 26, 2024 10:00 AM AMBULATORY - REHAB MEDICIN E [place] [facility] Oct 21, 2024 11:30 AM AMBULATORY - MEDICINE [facility] Vital Signs: All taken on the encounter date This section contains inpatient and outpatient Vital Signs collected on the date of the Encounter. Date/Time Temperature Pulse Blood Pressure Respiratory Rate SP02 Pain Height Weight Body Mass Index Source Apr 21, 2024 02:00 PM 98.2 88 128/60 18 97 0 [place] [facility] Social History: Smoking Status (Most current) and Tobacco Use (All prior to encounter date) This section includes the most current, and the historical, smoking and tobacco- related health factors from the [place] facility where the Encounter took place. Current Smoking Status This section includes the most current smoking, or tobacco-related health factor, from the [place] facility where the Encounter took place. Date/Time Current Smoking Status Comment Facil ity Sep 02, 2023 05:30 PM VA-TOBACCO FORMER USER [place] [facility] Tobacco Use History This section includes a history of the smoking, or tobacco-related health factors, that were collected on or before the date of the Encounter. The data comes from the [place] facility where the Encounter took place. Date/Time Smoking Status/Tobacco Use Comment F acility Sep 02, 2023 05:30 PM VA-TOBACCO QUIT 15 YRS OR MORE [place] [facility] Apr 24, 2022 01:00 PM VA-TOBACCO FORMER USER [place] [facility] Apr 24, 2022 01:00 PM VA-TOBACCO QUIT 15 YRS OR MORE [place] [facility] Dec 05, 2021 02:00 PM VA-TOBACCO USE DEC LINED TO ANSWER [place] [facility] Nov 24, 2021 04:05 PM VA-TOBACCO USE DEC LINED TO ANSWER [facility] Sep 20, 2020 08:40 AM VA-TOBACCO NEVER USED [place] [facility] Advance Directives: All historical and current Section Date Range: From patient's date of to the date document was created. This section includes ALL of a patient's completed or amended [place] Advance and Rescinded Directives. The entries below indicate that a directive exists for the patient, but an actual copy is not included with this document. The data comes from all [place] facilities. Date Advance Directives Provider Source Nov 11, 2016 ADVANCE DIRECTIVE ELROY CHÁVEZ [place] [facility] Jul 08, 2006 ADVANCE DIRECTIVE [facility]O [facility] Encounter Notes: All associated encounter notes This section contains the clinical notes associated to the Encounter. Date/Time Encounter Note(s) Provider Source May 12, 2024 01:10 PM ADDENDUM: LOCAL TITLE: Addendum STANDARD TITLE: ADDENDUM DATE OF NOTE: MAY 12, 2024@13:10:48 ENTRY DATE: MAY 12, 2024@13:10:50 AUTHOR: ADALGISA MCNAIR COSIGNER: URGENCY: STATUS: COMPLETED [place] needs renewal of Torsemide, he continues to take 20mg daily. Thank you! /es/ Adalgisa Mcnair RN [facility] claim service representative Signed: 05/12/2024 13:13 Receipt Acknowledged By: 05/12/2024 15:09 /es/ GILES FUENTES [facility] NURSE PRACTITIONER --- Original Document --- 04/21/24 [...] in patient's home at time of visit. [place] identified by: Facial Recognition Length of visit in home:45 MIN Problem addressed for this visit:MED COMPLIANCE, BLINDNESS, SLEEP APNEA NURSING SUMMARY:VISIT MADE TO [facility] AT HOME FOR ASSESSMENT, MEDPREFLL. ROGELIO AND SOLOMON PRESENT. ALERT, ORIENTED TALKATIVE. HE [...] WITH HIS BUDDIES AND WENT TO THE [facility] YESTERDAY WITH SOLOMON FOR DONUTS [...] TIME. Skin:INTACT SKIN. Home Safety HOME OXYGEN: Vet has home oxygen at a rate of 2l delivered via [place] PRN during the day, at night continuous. Oxygen orders are on active medication list:yes NAME and telephone number of O2 Company:[employer] [phone] Home Oxygen Safety Checklist Issue YES/NO --- Res 01/29/2015 Does patient smoke No Comments: Does anyone in household smoke Yes Comments: SMOKES OUTSIDE Evidence of smoking material, i.e. mail superintendent, cigarettes Yes Comments: Cooks or heats with [...] ONGOING COMPLEX MEDICAL NEEDS. BENEFITS FROM ONGOING [facility] INTERDISCIPLINARY MGT. AND MEDICAL OVERSIGHT. AND [...] assessment, med prefill. /esthela/ Adalgisa Mcnair RN [facility] claim service representative Signed: 04/22/2024 00:16 04/22/2024 ADDENDUM STATUS: COMPLETED Home Telehealth (CCHT) Referral: Patient not a candidate for CCHT Program at this time. Reason: IS NOT INTERESTED IN [facility]. High Risk for HYPOglycemia: Not reported. Comment: [...] adult present /es/ Adalgisa Mcnair RN [facility] claim service representative Signed: 04/22/2024 00:21 ADALGISA MCNAIR [facility] Apr 21, 2024 02:00 PM [facility] NURSING [...] TO [facility] AT HOME FOR ASSESSMENT, MEDPREFLL. ROGELIO AND SOLOMON PRESENT. ALERT, ORIENTED TALKATIVE. HE HAS BEEN DOING WELL. NO FALLS. NO ER VISITS. [facility] WAS SUPPOSED TO HAVE A CIRCUMCISION DONE ON 04/29, IT IS BEING RESCHEDULED DUE TO [facility] NEEDING OXYGEN THEREFORE THE SURGERY NEEDS TO [...] WITH HIS BUDDIES AND WENT TO THE [facility] YESTERDAY WITH SOLOMON FOR DONUTS [...] list:yes NAME and telephone number of O2 Company:[employer] [phone] Home Oxygen Safety Checklist Issue YES/NO --- Res 01/29/2015 Does patient smoke No Comments: Does anyone in household smoke Yes Comments: SMOKES OUTSIDE Evidence of smoking material, i.e. mail superintendent, cigarettes Yes Comments: Cooks or heats with [...] ONGOING COMPLEX MEDICAL NEEDS. BENEFITS FROM ONGOING [facility] INTERDISCIPLINARY MGT. AND MEDICAL OVERSIGHT. AND [...] med prefill. /esthela/ Adalgisa Mcnair RN [facility] claim service representative Signed: 04/22/2024 00:16 04/22/2024 ADDENDUM STATUS: COMPLETED [...] adult present /esthela/ Adalgisa Mcnair RN [facility] claim service representative Signed: 04/22/2024 00:21 05/12/2024 ADDENDUM STATUS: COMPLETED [place] needs renewal of Torsemide, he continues to take 20mg daily. Thank you! /raleigh Mcnair RN [facility] claim service representative Signed: 05/12/2024 13:13 Receipt Acknowledged By: * AWAITING SIGNATURE * GILES FUENTES GRETCHEN [facility]
--- OUTSIDE RECORDS SUMMARY | 2025-01-04 13:52 | XMS_ITS | Encounter Summary ---
Author Name [facility] [place] Organization [place] Address [address] [place] [address] Care Team Providers Care Commercial Loan Collection Officer Name Role Phone GILES FUENTES Primary Care Provider UnavailBILLIE Lr Unavailable Unavailable MONIKA UFENTES Unavailable Unavailable JACOB DOTSON Unavailable Unavailable FARIDEH [...] CAREMARK PRESCRIPT ION GEHA Sep 14, 2014 [id number] FANY LEMUS ON PATIENT CAREMARK PRESCRIPT ION SUSI AL NAVEENO ONDINA TEIXEIRAA Sep 14, 2014 [id number] [phone] FANY LEMUS ON PATIENT CAREMARK PRESCRIPT ION Sep 14, 2014 [id number] [phone] FANY LEMUS ON PATIENT GEHA (SECONDARY ) PREFERRED PROVIDER ORGANIZAT ION (PPO) HIGH OPTIO N MCR A&B Sep 14, 2005 [id number] ALLAN,MYR ON PATIENT GEHA (SECONDARY ) PREFERRED PROVIDER ORGANIZAT ION (PPO) GEHA CONNE CTION DENT Sep 14, 2005 [id number] ALLAN,MYR ON PATIENT GEHA FEHB PREFERRED PROVIDER ORGANIZAT ION (PPO) SUSI AL GOV Sep 14, 2005 [id number] ALTH [id number] ALLAN,MYR ON PATIENT GEHA FEHB PREFERRED PROVIDER ORGANIZAT ION (PPO) SUSI AL* Sep 14, 1989 [id number] ALTH [id number] ALLAN,MYR ON PATIENT GEHA-[facility] GEHA HIGH OPTIO N Sep 14, 2021 [id number] ALLAN,MYR ON PATIENT MEDICARE (WNR) MEDICARE (M) PART B May 15, 2000 PART B [id number] ALLAN,MYR ON PATIENT MEDICARE (WNR) MEDICARE (M) PART A May 15, 2000 PART A [id number] 00 ALLAN,MYR ON PATIENT MEDICARE (WNR) MEDICARE (M) PART A May 15, 2000 PART A [id number] [id number] 00 ALLAN,MYR ON PATIENT MEDICARE (WNR) MEDICARE (M) PART B May 15, 2000 PART B [id number] [id number] 00 ALLAN,MYR ON PATIENT MEDICARE (WNR) MEDICARE (M) PART A May 15, 2000 PART A [id number] ALLAN,MYR ON PATIENT MEDICARE (WNR) MEDICARE (M) PART B May 15, 2000 PART B [id number] [id number] ALLAN,MYR ON PATIENT MEDICARE (WNR) MEDICARE (M) PART A May 15, 2000 PART A [id number] ALLAN,MYR ON PATIENT MEDICARE (WNR) MEDICARE (M) PART B May 15, 2000 PART B [id number] QP12 FANY LEMUS ON PATIENT Selected Encounter This section includes the information on record at [place] for the Encounter. Date/Time Encounter Type Encounter Description Reason Provider Source Jun 03, 2024 11:30 AM OFFICE O/P EST LOW 20 MIN PODIATRY ICD-10-CM L60.3 Nail dystrophy YULISA AGUIAR Verito Encounter Template Text not used by NH [...] activities for the patient from all [place] treatmentfacilities. This section includes future appointments and [...] REHAB MEDICIN E [facility] [place] [facility] Oct 21, 2024 11:30 AM AMBULATORY - MEDICINE [facility] Social History: Smoking Status (Most current) [...] Robina guerrero Aug 11, 2018 11:06 AM NH-TOBACCO QUIT 15 YRS OR MORE [facility] Tobacco Use History This section includes a history of the smoking, or tobacco-related health factors, that were collected on or before the date of the Encounter. The data comes from the [place] facility where the Encounter took place. Date/Time Smoking Status/Tobacco Use Comment F david Aug 11, 2018 11:06 AM VA-TOBACCO QUIT 15 YRS OR MORE [facility] January 27, 2018 10:21 AM LIFETIME NON-TOBACCO USER [facility] Nov 10, 2016 10:18 AM QUIT TOBACCO USE > 7 YEARS AGO quit 20 years ago [facility] Sep 10, 2015 10:20 AM QUIT TOBACCO USE > 7 YEARS AGO [facility] Dec 08, 2005 02:29 PM QUIT TOBACCO USE > 7 YEARS AGO HX of tobacco use for approx 40 yrs. [facility] Advance Directives: All historical and current Section [...] Nov 11, 2016 ADVANCE DIRECTIVE ELROY CHÁVEZ [place] [facility] Jul 08, 2006 ADVANCE DIRECTIVE CHAPARRO DICK [facility] Encounter Notes: All associated encounter notes This section contains the clinical notes associated to the Encounter. Date/Time Encounter Note(s) Provider Source Jun 03, 2024 07:39 AM PODIATRY NOTE: LOCAL TITLE: PODIATRY NOTE STANDARD TITLE: PODIATRY NOTE DATE OF NOTE: JUN 03, 2024@07:39 ENTRY DATE: JUN 03, 2024@07:39:08 AUTHOR: YULISA AGUIRA EXP COSIGNER: URGENCY: STATUS: COMPLETED NOTE: HAS RECEIVED BOTH COVID VACCINE DOSES + 4 BOOSTERS AT [facility] LAST SEEN FOR TREATMENT: 01/12/2024 HPI: Pt. [...] present physical-medical status. Protective sensation utilizing a Haskell-Negrita lOg monofilament is 10/10 bilateral. BIOMECHANICAL: Exam [...] JLV. Allergies/ADRs (Tool #5) FACILITY ALLERGY/ADR -------- [place] [facility] SULFA DRUGS [facility] [place] INFLUENZA [facility] SULFA DRUGS [facility] ([facility] INCLUDED IN THIS LIST: Alphabetical list of active outpatient prescriptions dispensed from this NH (local) and dispensed from another NH or [facility] facility (remote) as well as inpatient orders (local pending and active), local clinic medications, locally documented non-VA medications, and local prescriptions that have or been discontinued in the past 90 days. Non-VA Meds Last Documented On: Dec 21, 2023 NOTE The display of VA prescriptions dispensed from another NH or [facility] facility (remote) is limited to active outpatient prescription entries matched to National Drug File at the originating site and may not include some items such as investigational drugs, compounds, etc. NOT INCLUDED IN THIS LIST: Medications self-entered by the patient into personal health records (i.e. [employer]Guides) are NOT included in this list. Non-VA medications documented outside this NH, remote inpatient orders (regardless of status) and remote clinic medications are NOT included in this list. The patient and provider must always discuss medications the patient is taking, regardless of where the medication was dispensed or obtained. OUTPT ACETAMINOPHEN 500MG TAB (Status = Active) TAKE TWO TABLETS BY MOUTH THREE TIMES DAILY NEEDED FOR PAIN Rx# [id number] Last Released: 09/16/23 Qty/Days Supply: 200/34 Rx Expiration Date: 09/15/24 Refills Remainin Indication: FOR PAIN OUTPT ALOGLIPTIN 25MG TAB (Status = Discontinued) TAKE ONE TABLET BY MOUTH ONCE DAILY IN PLACE OF SITAGLIPTIN Rx# [id number] Last Released: 01/19/24 Qty/Days Supply: 90 Rx Expiration Date: 11/06/24 Refills Remainin Indication: FOR TYPE 2 DIABETES MELLITUS OUTPT AMLODIPINE BESYLATE 10MG TAB (Status = Discontinued) TAKE ONE TABLET BY MOUTH ONCE DAILY FOR BLOOD PRESSURE/HEART, DO NOT TAKE WITH GRAPEFRUIT JUICE Rx# [id number] Last Released: 01/25/24 Qty/Days Supply: Rx Expiration Date: 04/20/24 Refills Remainin OUTPT AMLODIPINE BESYLATE 10MG TAB (Status = Active) TAKE ONE TABLET BY MOUTH ONCE DAILY FOR BLOOD PRESSURE/HEART, DO NOT TAKE WITH GRAPEFRUIT JUICE Rx# [id number] Last Released: 04/07/24 Qty/Days Supply: Rx Expiration Date: 03/30/25 Refills Remainin OUTPT ASPIRIN 81MG EC TAB (Status = Active) TAKE ONE TABLET BY MOUTH ONCE DAILY TO PREVENT STROKE/HEART ATTACK Rx# [id number] Last Released: 04/27/24 Qty/Days Supply: 120/ Rx Expiration Date: 02/10/25 Refills Remainin Indication: FOR BLOOD CLOT PREVENTION FOLLOWING PCI OUTPT ATORVASTATIN CALCIUM 80MG TAB (Status = Active) TAKE ONE TABLET BY MOUTH ONCE DAILY FOR CHOLESTEROL Rx# [id number] Last Released: 04/07/24 Qty/Days Supply: Rx Expiration Date: 10/01/24 Refills Remainin OUTPT BRIMONIDINE 0.2%/BRINZOLAMID 1% OPH SUSP (Status = Active) INSTILL 1 DROP INTO EACH EYE TWICE DAILY Rx# [id number] Last Released: 03/28/24 Qty/Days Supply: Rx Expiration Date: 11/26/24 Refills Remainin OUTPT CARVEDILOL 3.125MG TAB (Status = Active) TAKE ONE TABLET BY MOUTH TWICE DAILY FOR HIGH BLOOD PRESSURE Rx# [id number] Last Released: 05/23/24 Qty/Days Supply: 180/ Rx Expiration Date: 03/09/25 Refills Remainin Indication: FOR HIGH BLOOD PRESSURE OUTPT CHOLECALCIF 25MCG (D3-1,000UNIT) TAB (Status = Active) TAKE ONE TABLET BY MOUTH ONCE DAILY FOR VITAMIN SUPPLEMENTATION Rx# [id number] Last Released: 05/23/24 Qty/Days Supply: 90/ Rx Expiration Date: 08/04/24 Refills Remainin OUTPT DOCUSATE NA 100MG CAP (Status = Active) TAKE ONE CAPSULE BY MOUTH TWICE DAILY NEEDED TO SOFTEN STOOL Rx# [id number] Last Released: 11/09/23 Qty/Days Supply: 100/50 Rx Expiration Date: 10/28/24 Refills Remainin Indication: FOR CONSTIPATION OUTPT EPLERENONE 25MG TAB (Status = Active) TAKE ONE TABLET BY MOUTH ONCE DAILY FOR HIGH BLOOD PRESSURE Rx# [id number] Last Released: 05/02/24 Qty/Days Supply: 90 Rx Expiration Date: 09/15/24 Refills Remainin Indication: FOR HIGH BLOOD PRESSURE Non-VA FLUTICASONE/UMECLID/VILANT (TRELEGY 200) INHL,ORAL INHALE BY MOUTH ONCE DAILY OUTPT HYDROPHILIC (EQV AQUAPHOR) TOP OINT (Status = Active) APPLY LIBERAL AMOUNT TOPICALLY ONCE DAILY NEEDED FOR SKIN PROTECTION Rx# [id number] Last Released: 05/23/24 Qty/Days Supply: 454/90 Rx Expiration Date: 08/16/24 Refills Remainin Indication: FOR SKIN PROTECTION OUTPT KETOCONAZOLE 2% SHAMPOO (Status = Active) SHAMPOO SMALL AMOUNT TOPICALLY ONCE DAILY Rx# [id number] Last Released: 05/02/24 Qty/Days Supply: 120/90 Rx Expiration Date: 10/28/24 Refills Remainin Indication: FOR FUNGAL INFECTION OF THE SKIN OUTPT LATANOPROST 0.005% OPH SOLN (Status = Active) INSTILL 1 DROP INTO EACH EYE AT BEDTIME Rx# [id number] Last Released: 04/06/24 Qty/Days Supply: 7. Rx Expiration Date: 01/11/25 Refills Remainin OUTPT LOSARTAN 100MG TAB (Status = Active) TAKE ONE TABLET BY MOUTH ONCE DAILY FOR BLOOD PRESSURE/HEART Rx# [id number] Last Released: 03/15/24 Qty/Days Supply: 90/ Rx Expiration Date: 10/01/24 Refills Remainin Indication: FOR HIGH BLOOD PRESSURE OUTPT MULTIVIT/OPHTH AREDS2/LUTE/ZEAX CAP/TAB (Status = Discontinued) TAKE 1 CAPSULE BY MOUTH TWICE DAILY IN THE MORNING AND EVENING, WITH FOOD Rx# [id number] Last Released: 03/08/24 Qty/Days Supply: 120/60 Rx Expiration Date: 03/25/24 Refills Remainin OUTPT MULTIVIT/OPHTH AREDS2/LUTE/ZEAX CAP/TAB (Status = Active) TAKE 1 CAPSULE BY MOUTH TWICE DAILY IN THE MORNING AND EVENING, WITH FOOD Rx# [id number] Last Released: 04/18/24 Qty/Days Supply: 120/60 Rx Expiration Date: 03/30/25 Refills Remainin Non-VA OXYGEN MISCELLANEOUS USE 2 LITERS VIA NC AT NIGHT DIRECTED NEEDED Medication prescribed by Non-VA provider. OUTPT PRIMIDONE 50MG TAB (Status = Active) TAKE ONE TABLET BY MOUTH THREE TIMES A DAY Rx# [id number] Last Released: 03/15/24 Qty/Days Supply: Rx Expiration Date: 10/01/24 Refills Remainin OUTPT SITAGLIPTIN (EQV-ZITUVIO) 100MG TAB (Status = Discontinued) TAKE ONE TABLET BY MOUTH ONCE DAILY FOR DIABETES (IN PLACE OF ALOGLIPTIN) Rx# [id number] Last Released: 04/29/24 Qty/Days Supply: Rx Expiration Date: 04/29/25 Refills Remainin Indication: FOR DIABETES OUTPT TIMOLOL MALEATE 0.5% OPH GEL (Status = Active) APPLY 1 DROP INTO EACH EYE TWICE DAILY Rx# [id number] Last Released: 03/28/24 Qty/Days Supply: Rx Expiration Date: 07/14/24 Refills Remainin OUTPT TIMOLOL MALEATE 0.5% OPH SOLN (Status = Active) INSTILL 1 DROP INTO EACH EYE TWICE DAILY Rx# [id number] Last Released: 03/09/24 Qty/Days Supply: Rx Expiration Date: 11/26/24 Refills Remainin OUTPT TORSEMIDE 20MG TAB (Status = Discontinued) TAKE ONE TABLET BY MOUTH ONCE DAILY Rx# [id number] Last Released: 05/02/24 Qty/Days Supply: Rx Expiration Date: 02/10/25 Refills Remainin OUTPT TORSEMIDE 20MG TAB (Status = Active) TAKE ONE TABLET BY MOUTH ONCE DAILY Rx# [id number] Last Released: 06/01/24 Qty/Days Supply: Rx Expiration Date: 05/13/25 Refills Remainin SUPPLIES /esthela/ YULISA AGUIAR DPM PARTS SALES MANAGER Signed: 06/03/2024 12:00 YULISA AGUIAR [facility]
--- OUTSIDE RECORDS SUMMARY | 2025-01-04 13:52 | XMS_ITS ---
Author Name [facility] Organization [facility] Address [address] [place] [id number] Care Team Providers Care Special Shopper Name Role Phone GILES FUENTES Primary Care [...] CAREMARK PRESCRIPT ION GEKEO Sep 14, 2014 [id number] FANY LEMUS ON PATIENT CAREMARK PRESCRIPT ION SUSI ATKINSON Sep 14, 2014 [id number] FANY LEMUS ON PATIENT CAREMARK PRESCRIPT ION Sep 14, 2014 [id number] ALLAN,MYR ON PATIENT GEHA (SECONDARY ) PREFERRED PROVIDER ORGANIZAT ION (PPO) HIGH OPTIO N MCR A&B Sep 14, 2005 [id number] ALLAN,MYR ON PATIENT GEHA (SECONDARY ) PREFERRED PROVIDER ORGANIZAT ION (PPO) GEHA CONNE CTION DENT Sep 14, 2005 [id number] ALLAN,MYR ON PATIENT GEHA FEHB PREFERRED PROVIDER ORGANIZAT ION (PPO) SUSI AL GOV Sep 14, 2005 [id number] ALTH [id number] ALLAN,MYR ON PATIENT GEHA FEHB PREFERRED PROVIDER ORGANIZAT ION (PPO) SUSI AL* Sep 14, 1989 [id number] ALTH [id number] ALLAN,MYR ON PATIENT GEHA-BEHAV [facility] GEHA HIGH OPTIO N Sep 14, 2021 [id number] [phone] ALLAN,MYR ON PATIENT MEDICARE (WNR) MEDICARE (M) PART A May 15, 2000 PART A [id number] ALLAN,MYR ON PATIENT MEDICARE (WNR) MEDICARE (M) PART B May 15, 2000 PART B [id number] ALLAN,MYR ON PATIENT MEDICARE (WNR) MEDICARE (M) PART A May 15, 2000 PART A [id number] ALLAN,MYR ON PATIENT MEDICARE (WNR) MEDICARE (M) PART B May 15, 2000 PART B [id number] ALLAN,MYR ON PATIENT MEDICARE (WNR) MEDICARE (M) PART B May 15, 2000 PART B [id number] ALLAN,MYR ON PATIENT MEDICARE (WNR) MEDICARE (M) PART A May 15, 2000 PART A [id number] ALLAN,MYR ON PATIENT MEDICARE (WNR) MEDICARE (M) PART A May 15, 2000 PART A [id number] FANY LEMUS ON PATIENT MEDICARE (WNR) MEDICARE (M) PART B May 15, 2000 PART B [id number] FANY LEMUS ON PATIENT Selected Encounter This section includes the information on record at [place] for the Encounter. Date/Time Encounter Type Encounter Description Reason Provider Source Apr 04, 2024 02:17 PM QNHP OL DIG ASSMT&MGMT 21+ [facility] - CLINICAL PHARMACIST ICD-10-CM Z79.899 Other terminal make up operator (current) drug therapy JOSE DE JESUS [facility] Encounter Template Text not used by [place] Assessments - Encounter Diagnoses This section includes the primary and secondary diagnoses documented for the Encounter. Date/Time Primary/Secondary Diagnosis Diagnosis Name Provider Source Apr 05, 2024 04:05 PM PRIMARY Other terminal make up operator (current) drug therapy JOSE DE JESUS MONTGOMERY [facility] Plan of Treatment: Future Appointments (+ 6 months) and Future Tests (+/- 45 days) The Plan of Treatment section includes future care activities for the patient from all [place] treatmentfacilities. This section includes future appointments and [...] 01:00 PM AMBULATORY - REHAB MEDICIN E [facility] Jun 03, 2024 11:30 AM AMBULATORY - MEDICINE [facility] Sep 26, 2024 10:00 AM AMBULATORY - REHAB MEDICIN E [facility] Social History: Smoking Status (Most current) [...] 02, 2023 05:30 PM VA-TOBACCO FORMER USER [facility] Tobacco Use History This section includes a history of the smoking, or tobacco-related health factors, that were collected on or before the date of the Encounter. The data comes from the [place] facility where the Encounter took place. Date/Time Smoking Status/Tobacco Use Comment F acility Sep 02, 2023 05:30 PM VA-TOBACCO QUIT 15 YRS OR MORE [facility] [place] [facility] Apr 24, 2022 01:00 PM VA-TOBACCO FORMER USER [facility] [place] [facility] Apr 24, 2022 01:00 PM VA-TOBACCO QUIT 15 YRS OR MORE [facility] [place] [facility] Dec 05, 2021 02:00 PM VA-TOBACCO USE DEC LINED TO ANSWER [facility] [place] [facility] Nov 24, 2021 04:05 PM VA-TOBACCO USE DEC [facility]SW[facility] Sep 20, 2020 08:40 AM [facility] Advance Directives: All historical and current [...] ADVANCE DIRECTIVE ELROY CHÁVEZ [facility] [place] [facility] Jul 08, 2006 ADVANCE DIRECTIVE CHAPARRO [...] 's A1c is well within goal. This writer technical publications to discontinue Rx at this time. /esthela/ JOSE DE JESUS MONTGOM[facility] Clinical Pharmacist Practitioner Signed: 05/12/2024 12:46 Receipt Acknowledged By: 05/12/2024 15:05 /es/ GILES FUENTES [facility] NURSE PRACTITIONER 05/12/2024 19:49 /es/ Adalgisa Pina RN [facility] box hinge and lock attacher --- Original Document --- 04/04/24 [facility] PHARM[facility] MEDICATION REVIEW: Leonel Lemus is a [...] to trial. - Andrés was seen by [facility] on 01/29/24. PSA significantly increased. PET [...] pre-fills meds 7. Health Maintenance: > Immunizations: Mcconnells is due for the following immunizations per chart review and CDC recommendations: * COVID-19 - received a dose of the [id number] formulation on 10/08/23; due for a booster dose - Per Oct 2023 CDC update, adults ages 65 years and older are now recommended to receive an additional updated 7851-2129 COVID-19 vaccine dose in an effort to [...] 60 min /esthela/ JOSE DE JESUS [facility]TG[facility] Clinical Pharmacist Practitioner Signed: 04/05/2024 16:10 Receipt Acknowledged By: 04/08/2024 13:48 /esthela/ GILES FUENTES [facility] NURSE PRACTITIONER 04/05/2024 20:16 /esthela/ Adalgisa Pina RN [facility] box hinge and lock attacher 04/05/2024 ADDENDUM STATUS: COMPLETED Andrés is taking Torsemide 20mg daily for the past few months. Andrés is not taking miralax or colace. had EKG done due to concerns of this writer technical publications at last RN visit, increase in heart [...] originally ordered by community PCP . This writer technical publications can review ?of discontinuing the medication at next visit. /esthela/ Adalgisa Pina RN [facility] box hinge and lock attacher Signed: 04/05/2024 20:22 Receipt Acknowledged By: 04/06/2024 08:01 /raleigh [facility] Clinical Pharmacist Practitioner 04/07/2024 15:32 /esthela/ GILES FUENTES [facility] NURSE PRACTITIONER 04/07/2024 ADDENDUM STATUS: COMPLETED Would advise Mr. Lemus to d/c alogliptin. In the past, he has been resistant to getting rid of meds for his diabetes despite being well under a1c goal. I can d/c but wondering if he is still getting from his outside PCP? /esthela/ GILES FUENTES [facility] NURSE PRACTITIONER Signed: 04/07/2024 15:35 Receipt Acknowledged By: 04/08/2024 08:58 /esthela/ JOSE DE JESUS [facility] Clinical Pharmacist Practitioner 05/12/2024 ADDENDUM STATUS: COMPLETED Mcconnells had received notification that his alogliptin is being changed to sitagliptin, see pharmacy note from 04/28. This writer technical publications reviewed [facility] Pharmacy note from 04/04 indicating it would be reasonable to stop alogliptin. Last A1C 5.20 December 2023. Is it ok to stop the alogliptin? and avoid starting sitagliptin. The sitagliptin cannot be mixed with his other medications in his pill boxes which would make it difficult for Mcconnells. /esthela/ Adalgisa Pina RN [facility] box hinge and lock attacher Signed: 05/12/2024 12:30 Receipt Acknowledged By: 05/12/2024 15:05 /esthela/ GILES FUENTES [facility] NURSE PRACTITIONER 05/12/2024 12:43 /esthela/ JOSE DE JESUS [facility] Clinical Pharmacist Practitioner JOSE DE JESUS [facility] [place] [facility] May 12, 2024 12:24 PM ADDENDUM: LOCAL TITLE: Addendum STANDARD TITLE: ADDENDUM DATE OF NOTE: MAY 12, 2024@12:24:33 ENTRY DATE: MAY 12, 2024@12:24:36 AUTHOR: ADALGISA PINA EXP COSIGNER: URGENCY: STATUS: COMPLETED had received notification that his alogliptin is being changed to sitagliptin, see pharmacy note from 04/28. This writer technical publications reviewed [facility] Pharmacy note from 04/04 indicating it would be reasonable to stop alogliptin. Last A1C 5.20 December 2023. Is it ok to stop the alogliptin? and avoid starting sitagliptin. The sitagliptin cannot be mixed with his other medications in his pill boxes which would make it difficult for . /esthela/ Adalgisa Pina RN [facility] box hinge and lock attacher Signed: 05/12/2024 12:30 Receipt Acknowledged By: 05/12/2024 15:05 /raleigh FUENTES [facility] NURSE PRACTITIONER 05/12/2024 12:43 /es/ JOSE DE JESUS [facility] Clinical Pharmacist Practitioner --- Original Document --- 04/04/24 [facility] PH[facility] MEDICATION REVIEW: Leonel Lemus is a [...] to trial. - Andrés was seen by [facility] on 01/29/24. PSA significantly increased. PET [...] pre-fills meds 7. Health Maintenance: > Immunizations: Mcconnells is due for the following immunizations per chart review and CDC recommendations: * COVID-19 - received a dose of the [id number] formulation on 10/08/23; due for a booster dose - Per Oct 2023 CDC update, adults ages 65 years and older are now recommended to receive an additional updated 1761-4043 COVID-19 vaccine dose in an effort to [...] is being prefilled, if at all. - Mcconnells's Rx for polyethylene glycol recently . Please [...] 60 min /esthela/ JOSE DE JESUS [facility] Clinical Pharmacist Practitioner Signed: 04/05/2024 16:10 Receipt Acknowledged By: 04/08/2024 13:48 /esthela/ GILES FUENTES [facility] NURSE PRACTITIONER 04/05/2024 20:16 /esthela/ Adalgisa Pina RN [facility] box hinge and lock attacher 04/05/2024 ADDENDUM STATUS: COMPLETED Mcconnells is taking Torsemide 20mg daily for the past few months. Mcconnells is not taking miralax or colace. had EKG done due to concerns of this writer technical publications at last RN visit, increase in heart [...] originally ordered by community PCP . This writer technical publications can review ?of discontinuing the medication at next visit. /esthela/ Adalgisa Pina RN [facility] box hinge and lock attacher Signed: 04/05/2024 20:22 Receipt Acknowledged By: 04/06/2024 08:01 /esthela/ JOSE DE JESUS [facility] Clinical Pharmacist Practitioner 04/07/2024 15:32 /esthela/ GILES FUENTES [facility] NURSE PRACTITIONER 04/07/2024 ADDENDUM STATUS: COMPLETED Would advise Mr. Lemus to d/c alogliptin. In the past, he has been resistant to getting rid of meds for his diabetes despite being well under a1c goal. I can d/c but wondering if he is still getting from his outside PCP? /esthela/ GILES FUENTES [facility] NURSE PRACTITIONER Signed: 04/07/2024 15:35 Receipt Acknowledged By: 04/08/2024 08:58 /esthela/ JOSE DE JESUS [facility] Clinical Pharmacist Practitioner 05/12/2024 ADDENDUM STATUS: COMPLETED Appropriate to stop DPP-4 inhibitor (sitagliptin) to decrease pill burden as 's A1c is well within goal. This writer technical publications to discontinue Rx at this time. /esthela/ JOSE DE JESUS [facility]TG[facility] Clinical Pharmacist Practitioner Signed: 05/12/2024 12:46 Receipt Acknowledged By: 05/12/2024 15:05 /esthela/ GILES FUENTES [facility] NURSE PRACTITIONER * AWAITING SIGNATURE * ADALGISA PINA GRETCHEN [facility] [place] [facility] Apr 07, 2024 03:33 PM ADDENDUM: [...] from his outside PCP? /esthela/ GILES FUENTES [facility] NURSE PRACTITIONER Signed: 04/07/2024 15:35 Receipt Acknowledged By: 04/08/2024 08:58 /esthela/ JOSE DE JESUS [facility] Clinical Pharmacist Practitioner --- Original Document --- 04/04/24 [facility] MEDICATION REVIEW: Leonel Lemus is a [...] to trial. - Andrés was seen by [facility] on 01/29/24. PSA significantly increased. PET [...] pre-fills meds 7. Health Maintenance: > Immunizations: is due for the following immunizations per chart review and CDC recommendations: * COVID-19 - received a dose of the [id number] formulation on 10/08/23; due for a booster dose - Per Oct 2023 CDC update, adults ages 65 years and older are now recommended to receive an additional updated 2688-9918 COVID-19 vaccine dose in an effort to [...] Time Spent: 60 min /esthela/ JOSE DE JEUSS [facility] Clinical Pharmacist Practitioner Signed: 04/05/2024 16:10 Receipt Acknowledged By: * AWAITING SIGNATURE * GILES FUENTES 04/05/2024 20:16 /esthela/ Adalgisa Pina RN [facility] box hinge and lock attacher 04/05/2024 ADDENDUM STATUS: COMPLETED Mcconnells is taking Torsemide 20mg daily for the past few months. Mcconnells is not taking miralax or colace. had EKG done due to concerns of this writer technical publications at last RN visit, increase in heart [...] originally ordered by community PCP . This writer technical publications can review ?of discontinuing the medication at next visit. /es/ Adalgisa Pina RN [facility] box hinge and lock attacher Signed: 04/05/2024 20:22 Receipt Acknowledged By: 04/06/2024 08:01 /es/ JOSE DE JESUS [facility] Clinical Pharmacist Practitioner 04/07/2024 15:32 /es/ GILES FUENTES [facility] NURSE PRACTITIONER GILES FUENTES [facility] Apr 05, 2024 08:16 PM ADDENDUM: LOCAL TITLE: Addendum STANDARD TITLE: ADDENDUM DATE OF NOTE: APR 05, 2024@20:16:07 ENTRY DATE: APR 05, 2024@20:16:09 AUTHOR: ADALGISA PINA EXP COSIGNER: URGENCY: STATUS: COMPLETED Mcconnells is taking Torsemide 20mg daily for the past few months. Mcconnells is not taking miralax or colace. had EKG done due to concerns of this writer technical publications at last RN visit, increase in heart [...] and cardiology notes have been received for Mcconnells's records. Alogliptin was originally ordered by community PCP . This writer technical publications can review ?of discontinuing the medication at next visit. /es/ Adalgisa Pina RN [facility] box hinge and lock attacher Signed: 04/05/2024 20:22 Receipt Acknowledged By: 04/06/2024 08:01 /es/ JOSE DE JESUS [facility] Clinical Pharmacist Practitioner 04/07/2024 15:32 /es/ GILES FUENTES [facility] NURSE PRACTITIONER --- Original Document --- 04/04/24 [facility] MEDICATION REVIEW: Leonel Lemus is a [...] it makes him urinate too much. - Mcconnells sustained a fall ~01/06/24 (please see #3 below for additional details). - Per the 01/22/24 [facility] RN note, agreeable to [facility] RN doing prefills. 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 - Mcconnells was seen by [facility] on 01/29/24. PSA significantly increased. PET [...] COVID-19 - received a dose of the [id number] formulation on 10/08/23; due for a booster dose - Per Oct 2023 CDC update, adults ages 65 years and older are now recommended to receive an additional updated 0271-1645 COVID-19 vaccine dose in an effort to [...] is being prefilled, if at all. - Mcconnells's Rx for polyethylene glycol recently . Please [...] 60 min /es/ JOSE DE JESUS [facility] Clinical Pharmacist Practitioner Signed: 04/05/2024 16:10 Receipt Acknowledged By: * AWAITING SIGNATURE * GILES FUENTES 04/05/2024 20:16 /es/ Adalgisa Pina RN [facility] box hinge and lock attacher ADALGISA PINA [facility] Apr 04, 2024 02:17 PM [facility] MEDICATION MGT NOTE: LOCAL TITLE: [facility] PHARM[facility] MEDICATION REVIEW STANDARD TITLE: [facility] MEDICATION MGT NOTE DATE OF NOTE: APR 04, 2024@14:17 ENTRY DATE: APR 04, 2024@14:17:32 AUTHOR: JOSE DE JESUS [facility] COSIGNER: URGENCY: STATUS: COMPLETED [facility] PH[facility] MEDICATION REVIEW Has ADDENDA Leonel Lemus [...] started on low-dose carvedilol given elevated HRs. Mcconnells has not been taking torsemide as it makes him urinate too much. - Mcconnells sustained a fall ~01/06/24 (please see #3 below for additional details). - Per the 01/22/24 [facility] RN note, andrés agreeable to [facility] RN doing prefills. 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 - Andrés was seen by [facility] on 01/29/24. PSA significantly increased. PET [...] pre-fills meds 7. Health Maintenance: > Immunizations: Mcconnells is due for the following immunizations per chart review and CDC recommendations: * COVID-19 - received a dose of the 9756-3717 formulation on 10/08/23; due for a booster dose - Per Oct 2023 CDC update, adults ages 65 years and older are now recommended to receive an additional updated 2953-8618 COVID-19 vaccine dose in an effort to [...] 60 min /es/ JOSE DE JESUS [facility] Clinical Pharmacist Practitioner Signed: 04/05/2024 16:10 Receipt Acknowledged By: 04/08/2024 13:48 /es/ GILES FUENTES [facility] NURSE PRACTITIONER 04/05/2024 20:16 /es/ Adalgisa Pina RN [facility] box hinge and lock attacher 04/05/2024 ADDENDUM STATUS: COMPLETED Andrés is taking Torsemide 20mg daily for the past few months. Andrés is not taking miralax or colace. Andrés had EKG done due to concerns of this writer technical publications at last RN visit, increase in heart [...] originally ordered by community PCP . This writer technical publications can review ?of discontinuing the medication at next visit. /esthela/ Adalgisa Pina RN [facility] box hinge and lock attacher Signed: 04/05/2024 20:22 Receipt Acknowledged By: 04/06/2024 08:01 /esthela/ JOSE DE JESUS [facility] Clinical Pharmacist Practitioner 04/07/2024 15:32 /esthela/ GILES FUENTES [facility] NURSE PRACTITIONER 04/07/2024 ADDENDUM STATUS: COMPLETED Would advise Mr. Lemus to d/c alogliptin. In the past, he has been resistant to getting rid of meds for his diabetes despite being well under a1c goal. I can d/c but wondering if he is still getting from his outside PCP? /esthela/ GILES FUENTES [facility] NURSE PRACTITIONER Signed: 04/07/2024 15:35 Receipt Acknowledged By: 04/08/2024 08:58 /esthela/ JOSE DE JESUS [facility] Clinical Pharmacist Practitioner 05/12/2024 ADDENDUM STATUS: COMPLETED Mcconnells had received notification that his alogliptin is being changed to sitagliptin, see pharmacy note from 04/28. This writer technical publications reviewed [facility] Pharmacy note from 04/04 indicating it would be reasonable to stop alogliptin. Last A1C 5.20 December 2023. Is it ok to stop the alogliptin? and avoid starting sitagliptin. The sitagliptin cannot be mixed with his other medications in his pill boxes which would make it difficult for . /esthela/ Adalgisa Pina RN [facility] box hinge and lock attacher Signed: 05/12/2024 12:30 Receipt Acknowledged By: * AWAITING SIGNATURE * GILES FUENTES 05/12/2024 12:43 /esthela/ JOSE DE JESUS [facility] Clinical Pharmacist Practitioner 05/12/2024 ADDENDUM STATUS: COMPLETED Appropriate to stop DPP-4 inhibitor (sitagliptin) to decrease pill burden as 's A1c is well within goal. This writer technical publications to discontinue Rx at this time. /esthela/ JOSE DE JESUS [facility] Clinical Pharmacist Practitioner Signed: 05/12/2024 12:46 Receipt Acknowledged By: * AWAITING SIGNATURE * GILES FUENTES * AWAITING SIGNATURE * ADALGISA PINA SARAH J [facility]
--- OUTSIDE RECORDS SUMMARY | 2025-01-04 13:52 | XMS_ITS ---
Author Name [facility] [place] Organization [facility] [place] Address [address] [place] [address] Care Team Providers Care Cap Parts Cutter Name Role Phone GILES FUENTES Primary Care [...] CAREMARK PRESCRIPT ION SREEKANTH Sep 14, 2014 [id number] FANY MALDONADO ON PATIENT CAREMARK PRESCRIPT ION SUSI ATKINSON Sep 14, 2014 [id number] FANY MALDONADO ON PATIENT CAREMARK PRESCRIPT ION Sep 14, 2014 [id number] ALLAN,MYR ON PATIENT GEHA (SECONDARY ) PREFERRED PROVIDER ORGANIZAT ION (PPO) HIGH OPTIO N MCR A&B Sep 14, 2005 [id number] ALLAN,MYR ON PATIENT GEHA (SECONDARY ) PREFERRED PROVIDER ORGANIZAT ION (PPO) GEHA CONNE CTION DENT Sep 14, 2005 [id number] ALLAN,MYR ON PATIENT GEHA FEHB PREFERRED PROVIDER ORGANIZAT ION (PPO) SUSI AL GOV Sep 14, 2005 [id number] ALTH [id number] ALLAN,MYR ON PATIENT GEHA FEHB PREFERRED PROVIDER ORGANIZAT ION (PPO) SUSI AL* Sep 14, 1989 [id number] ALTH [id number] ALLAN,MYR ON PATIENT GEHA[facility] GEHA HIGH OPTIO N Sep 14, 2021 [id number] ALLAN,MYR ON PATIENT MEDICARE (WNR) MEDICARE (M) PART A May 15, 2000 PART A [id number] ALLAN,MYR ON PATIENT MEDICARE (WNR) MEDICARE (M) PART B May 15, 2000 PART B [id number] ALLAN,MYR ON PATIENT MEDICARE (WNR) MEDICARE (M) PART A May 15, 2000 PART A [id number] [id number] ALLAN,MYR ON PATIENT MEDICARE (WNR) MEDICARE (M) PART B May 15, 2000 PART B [id number] [id number] ALLAN,MYR ON PATIENT MEDICARE (WNR) MEDICARE (M) PART A May 15, 2000 PART A [id number] ALLAN,MYR ON PATIENT MEDICARE (WNR) MEDICARE (M) PART B May 15, 2000 PART B [id number] [phone] ALLAN,MYR ON PATIENT MEDICARE (WNR) MEDICARE (M) PART A May 15, 2000 PART A [id number] FANY MALDONADO ON PATIENT MEDICARE (WNR) MEDICARE (M) PART B May 15, 2000 PART B [id number] [id number] FANY MALDONADO ON PATIENT Selected Encounter This section includes the information on record at [place] for the Encounter. Date/Time Encounter Type Encounter Description Reason Provider Source Nov 24, 2024 08:45 AM NQHP OL DIG ASSMT&MGMT 21+ [facility] - CLINICAL PHARMACIST ICD-10-CM Z79.899 Other oil heaterman (current) drug therapy JOSE DE JESUS MONTGOMERY E Encounter Template Text not used by [place] Assessments - Encounter Diagnoses This section includes the primary and secondary diagnoses documented for the Encounter. Date/Time Primary/Secondary Diagnosis Diagnosis Name Provider Source Nov 24, 2024 10:59 AM PRIMARY Other correction (current) drug therapy JOSE DE JESUS MONTGOMERY [facility] Plan of Treatment: Future Appointments (+ 6 months) and Future Tests (+/- 45 days) The Plan of Treatment section includes future care activities for the patient from all [place] [facility] This section includes future appointments and future orders which are active, pending or scheduled. Future Appointments This section includes appointments that were scheduled to occur 6 months from the date of the Encounter, up to a maximum of 20 appointments. The data comes from all [facility]. Appointment Date/Time Appointment Type Appointme nt Facility Name Feb 24, 2025 11:30 AM AMBULATORY - MEDICINE [facility] Mar 23, 2025 11:00 AM AMBULATORY - REHAB MEDICIN E [facility] Mar 23, 2025 12:00 PM [facility] Apr 13, 2025 02:30 PM AMBULATORY - MEDICINE [facility] Active, Pending, and Scheduled Orders This section includes a listing of several types of active, pending, and scheduled orders, including clinic medications orders, diagnostic test orders, procedure orders and consult orders; where the start date of the order is 45 days before the date of the Encounter or 45 days after the date of theEncounter. The data comes from all [place] treatment [facility]. Test Date/Time Test Type Test Details Facility Name Oct 17, 2024 08:00 AM Laboratory - Chemistry Order HEMOGLOBIN A1C PANEL BLOOD (LAV-BLOOD) SP [place] [facility] [place] [facility] Dec 13, 2024 12:00 AM Laboratory - Chemistry Order HEMOGLOBIN A1C PANEL BLOOD (LAV-BLOOD) SP [place] [facility] [place] [facility] Social History: Smoking Status (Most current) and Tobacco Use (All prior to encounter date) This section includes the most current, and the historical, smoking and tobacco- related health factors from the [place] facility where the Encounter took place. Current Smoking Status This section includes the most current smoking, or tobacco-related health factor, from the [place] facility where the Encounter took place. Date/Time Current Smoking Status Comment Facil ity Aug 31, 2024 01:52 PM VA-TOBACCO NEVER U SED OTHER [facility] Tobacco Use History This section includes a history of the smoking, or tobacco-related health factors, that were collected on or before the date of the Encounter. The data comes from the [place] facility where the Encounter took place. Date/Time Smoking Status/Tobacco Use Comment F acility Aug 31, 2024 01:52 PM VA-TOBACCO USE FOR BERNICE CIGARETTES [place] [facility] [place] [facility] Sep 02, 2023 05:30 PM VA-TOBACCO FORMER USER [place] [facility] [place] [facility] Sep 02, 2023 05:30 PM VA-TOBACCO QUIT 15 YRS OR MORE [place] [facility] [place] [facility] Apr 24, 2022 01:00 PM VA-TOBACCO FORMER USER [place] [facility] [place] [facility] Apr 24, 2022 01:00 PM VA-TOBACCO QUIT 15 YRS OR MORE [place] [facility] [place] [facility] Dec 05, 2021 02:00 PM VA-TOBACCO USE DEC LINED TO ANSWER [place] [facility] [place] [facility] Nov 24, 2021 04:05 PM VA-TOBACCO USE DEC LINED TO ANSWER [place] [facility] [place] [facility] Sep 20, 2020 08:40 AM VA-TOBACCO NEVER USED [place] [facility] [place] [facility] Advance Directives: All historical and current Section Date Range: From patient's date of to the date document was created. This section includes ALL of a patient's completed or amended [place] Advance and Rescinded Directives. The entries below indicate that a directive exists for the patient, but an actual copy is not included with this document. The data comes from all [place] facilities. Date Advance Directives Provider Source Nov 11, 2016 ADVANCE DIRECTIVE ELROY CHÁVEZ [place] [facility] [place] [facility] Jul 08, 2006 ADVANCE DIRECTIVE MAYELINCHAPARRO [facility] Encounter Notes: All associated encounter notes This section contains the clinical notes associated to the Encounter. Date/Time Encounter Note(s) Provider Source Nov 24, 2024 08:46 AM [facility] MEDICATION MGT NOTE: LOCAL TITLE: [facility] PHARMACY MEDICATION REVIEW STANDARD TITLE: [facility] MEDICATION MGT NOTE DATE OF NOTE: NOV 24, 2024@08:46 ENTRY DATE: NOV 24, 2024@08:46:19 AUTHOR: JOSE DE JESUS MONTGOMERY: URGENCY: STATUS: COMPLETED Leonel Maldonado is an [...] (nausea, vomiting) Active Outpatient Medications Status 1) ALBUTEROL 90MCG (CFC-F) 200D ORAL INHL INHALE 1 TO 2 PUFFS ACTIVE BY MOUTH FOUR TIMES DAILY NEEDED Indication: FOR BRONCHOSPASM * NEW 2) AMLODIPINE BESYLATE 10MG TAB TAKE ONE [...] USE Indication: FOR BRONCHOSPASM PREVENTION WITH COPD * NEW 6) BRIMONIDINE 0.2%/BRINZOLAMID 1% OPH SUSP INSTILL 1 DROP INTO ACTIVE EACH EYE TWICE DAILY 7) CARBOXYMETHYLCELLULOSE NA 1% OPH GEL APPLY 1 DROP INTO EACH ACTIVE EYE TWICE DAILY Indication: FOR DRY EYE * NEW 8) CARVEDILOL 3.125MG TAB TAKE ONE TABLET BY MOUTH TWICE DAILY ACTIVE Indication: FOR HIGH BLOOD PRESSURE 9) CHOLECALCIF 25MCG (D3-1,000UNIT) TAB TAKE ONE TABLET BY ACTIVE MOUTH ONCE DAILY FOR VITAMIN SUPPLEMENTATION 10) EPLERENONE 25MG TAB TAKE ONE TABLET BY MOUTH ONCE DAILY ACTIVE Indication: FOR HIGH BLOOD PRESSURE 11) KETOCONAZOLE 2% CREAM APPLY A THIN LAYER TOPICALLY TWICE ACTIVE DAILY NEEDED Indication: FOR SEBORRHEIC DERMATITIS * NEW 12) LATANOPROST 0.005% OPH SOLN INSTILL 1 [...] DROP INTO EACH EYE ACTIVE TWICE DAILY * NEW 17) TORSEMIDE 20MG TAB TAKE ONE TABLET BY MOUTH ONCE DAILY ACTIVE Active Non-VA Medications Status 1) Non-VA OXYGEN MISCELLANEOUS 2 LITERS VIA NC AT NIGHT ACTIVE DIRECTED NEEDED for SOB Since last review, 's PRN acetaminophen, ketoconazole shampoo, and PRN docusate Rxs . Also, non-VA Breztri was stopped. THE ABOVE MEDICATIONS WERE REVIEWED FOR: ADR, potential incompatibilities, compliance, duplication of therapy, and indications on problem list Other Rx/OTC/Herbals: ketoconazole shampoo (exp), PRN acetaminophen (exp) High Alert Meds: none Look Alike/Sound Alike Meds: acetaminophen, atorvastatin, carvedilol Duplication of Therapy: none Excessive Duration: none Vitals: ======= Ht: 70 in [177.8 cm] (08/23/2019 10:24) Wt: 204 lb [92.53 kg] (11/09/2024 16:00) BMI: 29.3 BP: 110/60 (11/09/2024 16:00) HR: 68 (11/09/2024 16:00) Pain: 0 (11/09/2024 16:00) Labs: ===== SERUM Na K BUN SCr 10/21/24 140 4.9 32 H 1.06 12/24/23 141 4.7 30 H 0.84 08/31/23 138 4.2 27 H 0.81 eGFR (CKD-EPI 2020): 67 (10/21/24) CrCl (C&G, SCr 1.06, adj BW): ~54 mL/min M mg/dL (12/24/23) Microalbumin/Cr: 11.9 mg/G (10/21/24) PSA: 36.05 H ng/mL (10/12/24) SERUM AST ALT 10/21/24 28 BLOOD WBC Hgb Hct MCV Plt 10/21/24 8.46 14.9 45.7 94 180 08/31/23 8.07 13.6 41.8 94.8 221 A1c: 5.7 % (12/24/23) 5.8 % (08/31/23) TSH: 1.4 uIU/mL (12/24/23) Vit B12: 443 pg/mL (12/24/23) SERUM LDL HDL TG Tot Chol 10/21/24 69 44 129 139 12/24/23 56 47 84 120 Vit D: 39 ng/mL (10/21/24) Ca: 9 mg/dL (08/31/23) Alb: 3.9 g/dL (10/21/24) ASSESSMENT: In the last 90 days: - No falls/hospitalizations/infection s noted - Per the 08/24/24 [facility] regional geodetic advisor note, reports skipping torsemide on days he leaves the home to reduce urination. Was educated to take when he returns home to avoid skipping doses given evidence of fluid overload (lower extremity edema/weight gain). - Per the 08/31/24 [facility] Provider Assessment note, requesting trial of formulary-preferred LAMA/LABA/ICS d/t high cost of Trelegy in the community. Pharmacy consult approved on 09/02/24. - Per the 10/13/24 [facility] RN note, reports worsened pulmonary sx since starting Breztri. - Per the 11/09/24 [facility] RN note, self-discontinued Breztri d/t worsening pulmonary sx and difficulty with BID administration. Recently saw Pulm. INTERVENTIONS/SUGGESTIONS: 1. Patient's medications were reviewed for significant drug interactions. * primidone/amlodipine: concurrent use may reduce the serum concentration of amlodipine * primidone/atorvastatin: concurrent use may decrease the serum concentration of atorvastatin * primidone/eplerenone: concurrent use may decrease serum concentration of eplerenone * eplerenone/losartan: concurrent use may increase risk of hypokalemia; last K WNL * amlodipine/torsemide/eplerenone/ losartan/carvedilol: concurrent use may increase risk of hypotension; continue to monitor vitals at future visits * amlodipine/atorvastatin: concurrent use may reduce the serum concentration of amlodipine 2. Patient has reduced renal function with an estimated creatinine clearance of ~54 mL/min, therefore at risk of accumulation of renally cleared drugs. LFTs WNL. Current medications are dosed appropriately [...] aldosterone antagonist, low-dose beta cassia, and loop diuretic (pt recently reported skipping torsemide dose if he is going out that day, was encouraged to take on a daily basis given evidence of fluid overload); recent BPs reasonably well-controlled with HRs 54-68; continue to monitor vitals; last K on the upper end of normal; last seen by non-VA Cardiology in Jun 2024 with plan for 6 month f/u * COPD - on ICS/LAMA/LABA (recently switched from non-VA Trelegy to VA formulary-preferred Breztri with reported worsening of pulmonary sx and self-discontinued) plus PRN JUANCARLOS (recently started), followed by non-VA Pulmonology (most recent visit in Oct 2024), uses oxygen at night only * T2DM - alogliptin previously stopped given last A1c 5.7%; metformin previously discontinued given A1c well WNL in the setting of advanced age, comorbidities, and fall risk; last Podiatry f/u in Oct 2024, last Optometry f/u 03/24/24 - no retinopathy or macular edema * GERD without esophagitis - pantoprazole previously discontinued as was no longer taking; no recent related complaints * glaucoma - on brimonidine/brinzolamide, latanoprost, and timolol maleate eye drops * prostate cancer - s/p prostatectomy; followed by Urology 5. All medications have an appropriate indication and supporting clinical symptoms. 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 Adherence Concerns: no concerns at this time - [facility] RN pre-fills meds, granddaughter assists with administration of eye drops 7. Health Maintenance: > Immunizations: * [place] is due for the following immunizations per chart review and CDC recommendations: - PCV20 (shared decision making, reasonable to offer in this given pulmonary PMH) > Tobacco/EtOH: * Please continue to periodically reassess alcohol use and encourage minimal intake given older age and history of falls. > Bladder/Bowel: * Inquire about incontinence and severity biannually. > Bone Health: * last vit D WNL on cholecalciferol, hx of deficiency in Dec 2021 * last Ca WNL, not on supplementation > Aspirin: * on low-dose aspirin, hx of ASCVD 8. Patient with zero refills on: carvedilol 9. Continue to review quarterly. Recommendations: - Per the 11/09/24 [facility] RN note, reports worsened pulmonary symptoms since transitioning from non-VA Trelegy to Breztri as well as challenges with BID administration so he self-discontinued. Would consider entering a pharmacy consult to receive Trelegy through the [place] given history of benefit with this agent. - Per chart review, plan was for to follow up with Urology in Oct 2024 given history of prostate cancer and he recently saw Pulm specialist in Oct 2024. Please request documentation for review. - Since last review, 's PRN acetaminophen and ketoconazole shampoo Rxs . Please re-order if still indicated moving forward. - Recommend offering an additional dose of the pneumococcal vaccine during next scheduled visit given older age and his significant pulmonary PMH (former smoker, COPD, asbestosis, history of tuberculosis). The details of this review were shared with the IDT in order to assist in creating a care plan designed to provide services focused on the health and well being of the patient. Time Spent: 60 min /esthela/ JOSE DE JESUS MONTGOMERY [facility] Clinical Pharmacist Practitioner Signed: 11/24/2024 11:20 Receipt Acknowledged By: 11/24/2024 22:37 /esthela/ GILES FUENTES [facility] NURSE PRACTITIONER 11/25/2024 17:17 /esthela/ Doris Mcnair RN [facility] automatic folder seamer JOSE DE JESUS MONTGOMERY [facility]
--- OUTSIDE RECORDS SUMMARY | 2025-01-04 13:52 | XMS_ITS | Encounter Summary ---
Author Name [facility] Organization [facility] ([place]) Address [address] [place] [id number] Care Team Providers Care Dinkey Engine Operator Name Role Phone GILES FUENTES Primary [...] CAREMARK PRESCRIPT ION GEHA Sep 14, 2014 [id number] FANY LEMUS ON PATIENT CAREMARK PRESCRIPT ION SUSI AL EMPLO [place] HEA Sep 14, 2014 [id number] FANY LEMUS ON PATIENT CAREMARK PRESCRIPT ION Sep 14, 2014 [id number] FANY LEMUS ON PATIENT GEHA (SECONDARY ) PREFERRED PROVIDER ORGANIZAT ION (PPO) HIGH OPTIO N MCR A&B Sep 14, 2005 [id number] ALLAN,MYR ON PATIENT GEHA (SECONDARY ) PREFERRED PROVIDER ORGANIZAT ION (PPO) GEHA CONNE CTION DENT Sep 14, 2005 [id number] ALLAN,MYR ON PATIENT GEHA FEHB PREFERRED PROVIDER ORGANIZAT ION (PPO) SUSI AL GOV Sep 14, 2005 [id number] ALTH [id number] ALLAN,MYR ON PATIENT GEHA FEHB PREFERRED PROVIDER ORGANIZAT ION (PPO) SUSI AL* Sep 14, 1989 [id number] ALTH [id number] ALLAN,MYR ON PATIENT GEHA-[facility] GEHA HIGH OPTIO N Sep 14, 2021 [id number] ALLAN,MYR ON PATIENT MEDICARE (WNR) MEDICARE (M) PART A May 15, 2000 PART A [id number] ALLAN,MYR ON PATIENT MEDICARE (WNR) MEDICARE (M) PART B May 15, 2000 PART B [id number] ALLAN,MYR ON PATIENT MEDICARE (WNR) MEDICARE (M) PART A May 15, 2000 PART A [id number] [id number] ALLAN,MYR ON PATIENT MEDICARE (WNR) MEDICARE (M) PART B May 15, 2000 PART B [id number] [id number] ALLAN,MYR ON PATIENT MEDICARE (WNR) MEDICARE (M) PART A May 15, 2000 PART A [id number] [id number] [phone] ALLAN,MYR ON PATIENT MEDICARE (WNR) MEDICARE (M) PART B May 15, 2000 PART B [id number] [id number] ALLAN,MYR ON PATIENT MEDICARE (WNR) MEDICARE (M) PART A May 15, 2000 PART A [id number] ALLAN,MYR ON PATIENT MEDICARE (WNR) MEDICARE (M) PART B May 15, 2000 PART B [id number] [id number] FANY LEMUS ON PATIENT Selected Encounter [...] ADVANCE DIRECTIVE ELROY CHÁVEZ [place] [facility] Jul 08, 2006 ADVANCE DIRECTIVE CHAPARRO DICK [facility]
--- OUTSIDE RECORDS SUMMARY | 2025-01-04 13:52 | XMS_ITS | Continuity of Care Document ---
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 Pylori) Infection Active 006 Condition [facility] H/O: tuberculosis Active 959 Condition Dec 08, 2005 Entered By: ORAL ORDONEZ Comment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 Randolph Campuzano at [facility] for L eye prob [facility] Legal blindness, as defined in [place] Active Condition [facility] Narrow angle glaucoma Active Condition [facility] Obesity Active Condition [facility] [place] [facility] Osteoarthritis (SNOMED CT 605946805) Active Condition Dec 08, 2005 Entered By: ORAL ORDONEZ Comment: knees and fingers [facility] [place] [facility] Osteoarthrosis, unspecified whether generalized or localized, involving unspecif Active Condition [facility] Personal History of Colonic Polyps Active Condition Dec 07 Entered By: ORAL ORDONEZ Comment: Dr Velasquez Colonosocpy Jun 03 no polyps EGD same dayNov 29, 2007 Entered By: ORAL ORDONEZ Comment: Hiatial hernia on UGI 06/17/07Nov 29, 2007 Entered By: ORAL ORDONEZ Comment: Tubular adenoma 12/15 [facility] Prostate cancer (SNOMED CT 461941580) Active Condition Dec 08, 2005 Entered By: [...] primodone per neuro seen 07/05 f/u 02/03 [facility] Under care of multiple providers Active Condition Nov 19 Entered By: LIZBETH NICOLE Comment: neuro: Dr. 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 Active Diagnosis [facility] Diagnosis: ICD-10-CM I10 Essential (primary) hypertension Active Diagnosis [facility] Diagnosis: ICD-10-CM 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 Diagnosis [facility] Diagnosis: ICD-10-CM H54.8 Legal blindness, as defined in [place] Active Diagnosis [facility] Diagnosis: ICD-10-CM I25.9 Chronic ischemic heart disease, unspecified Active Diagnosis [facility] Diagnosis: ICD-10-CM Z65.9 Problem related to unspecified psychosocial circumstances Active Diagnosis [facility] Diagnosis: ICD-10-CM 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 Active Diagnosis [facility] Diagnosis: ICD-10-CM E11.9 Type 2 diabetes mellitus without complications Active Diagnosis [facility] Diagnosis: ICD-10-CM H40.033 Anatomical narrow angle, bilateral Active Diagnosis [facility] Diagnosis: ICD-10-CM E66.3 Overweight Active Diagnosis [facility] Diagnosis: ICD-10-CM Z91.148 Patient's other noncompl with meds regimen for other reason Active Diagnosis [facility] Diagnosis: ICD-10-CM R25.1 Tremor, unspecified Active Diagnosis [facility] Diagnosis: ICD-10-CM R26.9 Unspecified abnormalities of gait and mobility Active Diagnosis [facility] Medications Combined list of outpatient medications from [...] TIMES DAILY NEEDED FOR PAIN ORAL 09/15/2024 [id number] RIN FUENTES 2023 200 [facility] ALBUTEROL 90MCG/ACTUA T (CFC-F) INHL,ORAL,8 .5GM DOSE COUNTER INHALE 1 TO 2 PUFFS BY MOUTH FOUR TIMES DAILY NEEDED FOR BRONCHOS PASM RESPIR ATORY (INHAL ATION) ACTIVE 09/01/2025 [id number] 4 RIN FUENTES 2023 3 [facility] ALOGLIPTIN 25MG TAB TAKE ONE TABLET BY MOUTH ONCE DAILY IN PLACE OF SITAGLIP TIN ORAL DISCONT INUED 11/06/2024 [id number] GINARIN CHAS RODRÍGUEZS 2023 90 [facility] AMLODIPINE BESYLATE 10MG TAB TAKE ONE TABLET BY MOUTH ONCE DAILY FOR BLOOD PRESSURE /HEART, DO NOT TAKE WITH GRAPEFRU IT JUICE ORAL ACTIVE 03/30/2025 [id number] 5 GINARIN CHAS JOSE ANGEL 2023 90 [facility] AMLODIPINE BESYLATE 10MG TAB TAKE ONE TABLET BY MOUTH ONCE DAILY FOR BLOOD PRESSURE /HEART, DO NOT TAKE WITH GRAPEFRU IT JUICE ORAL DISCONT INUED 04/20/2024 [id number] 4 GINARINLuda DOHERTY JOSE ANGEL 2022 90 [facility] ASPIRIN 81MG TAB,EC TAKE ONE TABLET BY MOUTH ONCE DAILY TO PREVENT STROKE/H EART ATTACK ORAL ACTIVE 02/10/2025 [id number] RIN FUENTES JOSE ANGEL 2023 120 [facility] ATORVASTATI N CA 80MG TAB TAKE ONE TABLET BY MOUTH ONCE DAILY FOR CHOLESTE ROL ORAL ACTIVE 08/31/2025 [id number] 5 GINARINLuda DOHERTY JOSE ANGEL 2024 90 [facility] ATORVASTATI N CA 80MG TAB TAKE ONE TABLET BY MOUTH ONCE DAILY FOR CHOLESTE ROL ORAL DISCONT INUED 10/01/2024 [id number] 4 GINARINLuda RODRÍGUEZS 2023 90 [facility] BRIMONIDINE 0.2%/BRINZO LAMIDE 1% SUSP,OPH INSTILL 1 DROP INTO EACH EYE TWICE DAILY OPHTHA LMIC ACTIVE 10/06/2025 [id number] 5 JUSKO,AND REW 2024 8 [facility] BRIMONIDINE 0.2%/BRINZO LAMIDE 1% SUSP,OPH INSTILL 1 DROP INTO EACH EYE TWICE DAILY OPHTHA LMIC DISCONT INUED 11/26/2024 [id number] 4 JUSKO,AND REW 2023 24 [facility] BRIMONIDINE 0.2%/BRINZO LAMIDE 1% SUSP,OPH INSTILL 1 DROP INTO EACH EYE TWICE DAILY OPHTHA LMIC DISCONT INUED 09/01/2024 [id number] 4 JUSKO,AND REW 2022 8 [facility] BUDESONIDE 160/GLYCOPY R 9/FORMOTER 4.8MCG/ACT INHL,ORAL,1 0.7GM INHALE 2 INHALATI ONS BY MOUTH TWICE DAILY FOR BRONCHOS PASM PREVENTI ON WITH COPD -RINSE MOUTH AFTER USE RESPIR ATORY (INHAL ATION) DISCONT INUED BY PROVIDE R 09/03/2025 [id number] 4 RIN FUENTES 2023 3 [facility] CARBOXYMETH YLCELLULOSE NA 1% GEL,OPH APPLY 1 DROP INTO EACH EYE TWICE DAILY FOR DRY EYE OPHTHA LMIC ACTIVE 11/15/2025 [id number] 5 RIN FUENTES 2024 15 [facility] CARVEDILOL 3.125MG TAB TAKE ONE TABLET BY MOUTH TWICE DAILY FOR HIGH BLOOD PRESSURE ORAL ACTIVE 08/19/2025 [id number] 5 RIN FUENTES 2023 180 [facility] CARVEDILOL 3.125MG TAB TAKE ONE TABLET BY MOUTH TWICE DAILY FOR HIGH BLOOD PRESSURE ORAL DISCONT INUED 03/09/2025 [id number] 4 MARY ELLEN SALVADOR 2023 180 [facility] CHOLECALCIF TONY 25MCG (1,000UNIT) TAB TAKE ONE TABLET BY MOUTH ONCE DAILY FOR VITAMIN SUPPLEME NTATION ORAL ACTIVE 08/16/2025 [id number] 5 RIN FUENTES 2023 90 [facility] CHOLECALCIF TONY 25MCG (1,000UNIT) TAB TAKE ONE TABLET BY MOUTH ONCE DAILY FOR VITAMIN SUPPLEME NTATION ORAL DISCONT INUED 08/04/2024 [id number] 4 RIN FUENTES 2022 90 [facility] DOCUSATE NA 100MG CAP TAKE ONE CAPSULE BY MOUTH TWICE DAILY NEEDED TO SOFTEN STOOL ORAL 10/28/2024 [id number] 4 RIN FUENTES 2023 100 [facility] EPLERENONE 25MG TAB TAKE ONE TABLET BY MOUTH ONCE DAILY FOR HIGH BLOOD PRESSURE ORAL SUSPEND ED 08/31/2025 [id number] 5 RIN FUENTES 2024 90 [facility] EPLERENONE 25MG TAB TAKE ONE TABLET BY MOUTH ONCE DAILY FOR HIGH BLOOD PRESSURE ORAL DISCONT INUED 09/15/2024 [id number] RIN FUENTES 2023 90 [facility] FLUTICASONE 200/UMECLID INIUM 62.5/VILANT TONY 25MCG/ACTUA T INH,30 INHALE 1 INHALATI ON BY MOUTH ONCE DAILY FOR COPD RESPIR ATORY (INHAL ATION) ACTIVE 12/02/2025 [id number] 5 RIN FUENTES 2024 3 [facility] HYDROPHILIC (EQV AQUAPHOR) OINT,TOP APPLY LIBERAL AMOUNT TOPICALL Y ONCE DAILY NEEDED FOR SKIN PROTECTI ON TOPICA L 08/16/2024 [id number] 4 RIN FUENTES 2023 454 [facility] KETOCONAZOL E 2% CREAM,TOP APPLY A THIN LAYER TOPICALL Y TWICE DAILY NEEDED FOR SEBORRHE IC DERMATIT IS TOPICA L ACTIVE 09/20/2025 [id number] 5 GINARIN WALTER 2024 60 [facility] KETOCONAZOL E 2% SHAMPOO SHAMPOO SMALL AMOUNT TOPICALL Y ONCE DAILY TOPICA L ACTIVE 12/06/2025 [id number] 5 FIDEL FUENTESLuda WALTER 2024 120 [facility] KETOCONAZOL E 2% SHAMPOO SHAMPOO SMALL AMOUNT TOPICALL Y ONCE DAILY TOPICA L DISCONT INUED 10/28/2024 [id number] 4 RIN FUENTES 2023 120 [facility] LATANOPROST 0.005% SOLN,OPH INSTILL 1 DROP INTO EACH EYE AT BEDTIME OPHTHA LMIC SUSPEND ED 10/06/2025 [id number] 5 JUSKO,AND REW 2024 2.5 [facility] LATANOPROST 0.005% SOLN,OPH INSTILL 1 DROP INTO EACH EYE AT BEDTIME OPHTHA LMIC DISCONT INUED 01/11/2025 [id number] 4 JUSKO,AND REW 2023 7.5 [facility] LATANOPROST 0.005% SOLN,OPH INSTILL 1 DROP INTO EACH EYE AT BEDTIME OPHTHA LMIC DISCONT INUED 11/26/2024 [id number] 4 JUSKO,AND REW 2023 12.5 [facility] [place] POTASSIUM 100MG TAB TAKE ONE TABLET BY MOUTH ONCE DAILY FOR BLOOD PRESSURE /HEART ORAL ACTIVE 08/31/2025 [id number] 5 RIN FUENTES 2024 90 [facility] [place] POTASSIUM 100MG TAB TAKE ONE TABLET BY MOUTH ONCE DAILY FOR BLOOD PRESSURE /HEART ORAL DISCONT INUED 10/01/2024 [id number] RIN FUENTES 2023 90 [facility] MULTIVIT/OP HTH AREDS2/LUTE IN/ZEAXANTH IN CAP/TAB TAKE 1 CAPSULE BY MOUTH TWICE DAILY IN THE MORNING AND EVENING, WITH FOOD ORAL ACTIVE 03/30/2025 [id number] 5 RIN FUENTES 2023 120 [facility] MULTIVIT/OP HTH AREDS2/LUTE IN/ZEAXANTH IN CAP/TAB TAKE 1 CAPSULE BY MOUTH TWICE DAILY IN THE MORNING AND EVENING, WITH FOOD ORAL DISCONT INUED 03/25/2024 [id number] 4 Savannah RENDON 2022 120 [facility] [...] ORAL DISCONT INUED BY PROVIDE R 10/06/2024 [id number] 4 RIN FUENTES 2023 45 [facility] ELD (CBOC) POLYETHYLEN E GLYCOL 3350 PWDR,ORAL TAKE 17 GRAMS(FI LL CAP TO 17GM LINE) BY MOUTH ONCE DAILY NEEDED FOR CONSTIPA TION [MIX WITH 4 TO 8OZ. OF BEVERAGE ] ORAL 01/26/2024 [id number] 4 RIN FUENTES 2023 510 [facility] PRIMIDONE 50MG TAB TAKE ONE TABLET BY MOUTH THREE TIMES A DAY ORAL ACTIVE 08/31/2025 [id number] 5 RIN FUENTES 2024 270 [facility] PRIMIDONE 50MG TAB TAKE ONE TABLET BY MOUTH THREE TIMES A DAY ORAL DISCONT INUED 10/01/2024 [id number] 4 RIN FUENTES 2023 270 [facility] SITAGLIPTIN (EQV-ZITUVI O) 100MG TAB TAKE ONE TABLET BY MOUTH ONCE DAILY FOR DIABETES (IN PLACE OF ALOGLIPT IN) ORAL DISCONT INUED BY PROVIDE R 04/29/2025 [id number] 4 RIN FUENTES 2023 90 [facility] TIMOLOL MALEATE 0.5% GEL,OPH APPLY 1 DROP INTO EACH EYE TWICE DAILY OPHTHA LMIC DISCONT INUED BY PROVIDE R 07/14/2024 [id number] Savannah RENDON 2023 15 [facility] TIMOLOL MALEATE 0.5% SOLN,OPH INSTILL 1 DROP INTO EACH EYE TWICE DAILY OPHTHA LMIC ACTIVE 10/06/2025 [id number] 5 JUSKO,AND REW 2024 5 [facility] TIMOLOL MALEATE 0.5% SOLN,OPH INSTILL 1 DROP INTO EACH EYE TWICE DAILY OPHTHA LMIC DISCONT INUED 09/01/2025 [id number] 4 JUSKO,AND REW 2023 15 [facility] TIMOLOL MALEATE 0.5% SOLN,OPH INSTILL 1 DROP INTO EACH EYE TWICE DAILY OPHTHA LMIC DISCONT INUED BY PROVIDE R 11/26/2024 [id number] JUSKO,AND REW 2023 30 [facility] TORSEMIDE 20MG TAB TAKE ONE TABLET BY MOUTH ONCE DAILY ORAL ACTIVE 05/13/2025 [id number] 5 RIN FUENTES 2023 90 [facility] TORSEMIDE 20MG TAB TAKE ONE TABLET BY MOUTH ONCE DAILY ORAL DISCONT INUED 02/10/2025 [id number] RIN FUENTES 2023 30 [facility] TORSEMIDE 20MG TAB TAKE ONE TABLET BY MOUTH ONCE DAILY ORAL DISCONT INUED 07/20/2024 [id number] 4 MARY ELLEN SALVADOR 2022 30 [facility] Allergies, Adverse Reactions, Alerts Combined list of allergies from Department of [facility] and [facility] facilities. It does not include entries that were removed or entered in error. Substance Category Reaction Severity Reaction type Status Date Reported Comments Source INFLUENZA Propensity to adverse reactions to drug (finding) Nausea and vomiting active 6 [facility] SULFA DRUGS Propensity to adverse reactions to drug (finding) Nausea and vomiting active 6 [facility] Immunizations Combined list of available immunizations from the Department of [facility] and [facility] facilities. Immunization Series Date Given Administered By Site Reaction Lot Number CVX Code Drug Advisor Consultant Status Comments Source COVID-19 (MODERNA), MRNA, LNP-S, PF, 50 MCG/0.5 ML (AGES 12+ YEARS) 2023 FRANSICO PINA RIGHT DELTO ID [id number] 312 complet ed [facility] INFLUENZA, HIGH-DOSE, TRIVALENT, PF 2023 FRANSICO PINA RIGHT [place] ID [id number] 135 complet ed [facility] COVID-19 (MODERNA), MRNA, LNP-S, PF, 50 MCG/0.5 ML (AGES 12+ YEARS) 1 2023 FRANSICO PINA RIGHT [place]TO ID [id number] 312 complet ed [facility] RSV, BIVALENT, PROTEIN SUBUNIT RSVPREF, DILUENT RECONSTITUTED , 0.5 ML, PF 1 2022 FRANSICO PINA RIGHT [place] ID [id number] 305 complet ed [facility] INFLUENZA, HIGH-DOSE, QUADRIVALENT 2022 FRANSICO PINA RIGHT [place] ID [id number] 197 complet ed [facility] COVID-19 (MODERNA), MRNA, LNP-S, BIVALENT BOOSTER, PF, 50 MCG/0.5 ML OR 25MCG/0.25 ML DOSE 1 2021 SILVANAANUPNELY Carolyne RIGHT DELTO ID [id number] 229 complet ed [facility], [facility] INFLUENZA VACCINE, QUADRIVALENT, ADJUVANTED 2021 205 complet ed [facility] COVID-19 (MODERNA), MRNA, LNP-S, PF, 100 MCG/0.5ML DOSE OR 50 MCG/0.25ML DOSE 3 2021 207 complet ed MOD; [id number]; 2 [facility] COVID-19 (MODERNA), MRNA, LNP-S, PF, 100 MCG/0.5ML DOSE OR 50 MCG/0.25ML DOSE 3 2020 207 complet ed [facility] INFLUENZA, UNSPECIFIED FORMULATION 2020 88 complet ed [facility] COVID-19 (MODERNA), MRNA, LNP-S, PF, 100 MCG/0.5 ML DOSE 2 2020 207 complet ed MOD; [id number]; 1 [facility] COVID-19 (MODERNA), MRNA, LNP-S, PF, 100 MCG/0.5 ML DOSE 1 2020 207 complet ed MOD; [id number]; 1 [facility] [...] FLU,3 YRS (HISTORICAL) 2014 88 complet ed [facility] [place] FLU,3 YRS (HISTORICAL) 2012 88 complet ed [facility] FLU,3 [...] ALL FORMULATIONS 2008 128 complet ed [facility] FLU,3 YRS (HISTORICAL) 2007 88 complet ed Pt went to his local [place] for his vaccine!! [facility] FLU,3 YRS (HISTORICAL) 2006 88 complet ed No reaction tto vaccine per patient. [facility] FLU,3 YRS [...] Reference Range Date Interpretation Specimen Comments Source BASIC METABOLIC PANEL (non-fast ing) UREA NITROGEN [MASS/VOLUM E] IN SERUM OR PLASMA 32 mg/dL 7 - 25 10/21 H Specimen Type: SERUM No comment entered. Ordering Provider: ARIC FUENTES Report Released Date/Time: Sep 02, 2024 08:56 AM Reporting Lab: [facility]ENTERTRN [facility]USE[address] [address] Performing Lab: [facility]ITALR WSTRN [facility]USE[address] [address] [facility] BASIC METABOLIC PANEL (non-fast ing) GLUCOSE [MASS/VOLUM E] IN SERUM OR PLASMA 122 mg/dL 65 - 100 10/21 H Specimen Type: SERUM No comment entered. Ordering Provider: ARIC FUENTES Report Released Date/Time: Sep 02, 2024 08:56 AM Reporting Lab: [facility]ITALRSHELBY [facility] CENTERTRN [facility]USE[address] [address] Performing Lab: [facility]OSPITALRL TRN [facility]ENTERUSE[address] [address] [facility] BASIC METABOLIC PANEL (non-fast ing) SODIUM [MOLES/VOLU ME] IN SERUM OR PLASMA 140 mmol/L 135 - 145 10/21 Specimen Type: SERUM No comment entered. Ordering Provider: ARIC FUENTES Report Released Date/Time: Sep 02, 2024 08:56 AM Reporting Lab: [facility]OSPITALRL TRN [facility]SE[address] [address] Performing Lab: [facility]ITALRL TRN [facility]USE[address] [address] [facility]OSPITALRMIZELL MEMORIAL HOSPITALN [facility]ENTERUSE [facility] BASIC METABOLIC PANEL (non-fast ing) POTASSIUM [MOLES/VOLU ME] IN SERUM OR PLASMA 4.9 mmol/L 3.5 - 5.0 10/21 Specimen Type: SERUM No comment entered. Ordering Provider: ARIC FUENTES Report Released Date/Time: Sep 02, 2024 08:56 AM Reporting Lab: [facility]OS[facility]ITALRL TRN [facility]ENTERUSEHARLE[facility] [address] [facility] [address] Performing Lab: [facility]ITALRL WSTRN [facility]ENTERUSEHARLEM [facility] [address] [facility] [address] [facility]R WSTRN [facility]ENTERUSE [facility] BASIC METABOLIC PANEL (non-fast ing) CHLORIDE [MOLES/VOLU ME] IN SERUM OR PLASMA 104 mmol/L 100 - 110 10/21 Specimen Type: SERUM No comment entered. Ordering Provider: ARIC FUENTES Report Released Date/Time: Sep 02, 2024 08:56 AM Reporting Lab: [facility]OSPITALRL TRN [facility] [address] [facility] [address] Performing Lab: [facility]ITALRSHELBY BAPTIST MEDICAL CENTERTRN [address] [address] [facility] BASIC METABOLIC PANEL (non-fast ing) CARBON DIOXIDE, TOTAL [MOLES/VOLU ME] IN SERUM OR PLASMA 27 meq/L 20 - 30 10/21 Specimen Type: SERUM No comment entered. Ordering Provider: ARIC FUENTES Report Released Date/Time: Sep 02, 2024 08:56 AM Reporting Lab: [facility]OSPITALRMIZELL MEMORIAL HOSPITALN [address] [address] Performing Lab: [facility]OSPITALRL TRN [address] [address] [facility] BASIC METABOLIC PANEL (non-fast ing) CREATININE [MASS/VOLUM E] IN SERUM OR PLASMA 1.06 mg/dL 0.50 - 1.40 10/21 Specimen Type: SERUM No comment entered. Ordering Provider: ARIC FUENTES Report Released Date/Time: Sep 02, 2024 08:56 AM Reporting Lab: [facility]OS[facility]ITALRL TRN [facility]ENTERUSE[address] [address] Performing Lab: [facility]OSPITALRL TRN [address] [address] [facility] BASIC METABOLIC PANEL (non-fast ing) GLOMERULAR FILTRATION RATE/1.73 SQ M.PREDICTED [VOLUME RATE/AREA] IN SERUM, PLASMA OR BLOOD BY CREATININE- BASED FORMULA (CKD-EPI 2020) 67 mL/min 60 10/21 Specimen Type: SERUM No comment entered. Ordering Provider: ARIC FUENTES Report Released Date/Time: Sep 02, 2024 08:56 AM Reporting Lab: [facility] [place] [address] [address] Performing Lab: [facility] [address] [address] [facility] CBC LEUKOCYTES [#/VOLUME] IN BLOOD BY AUTOMATED COUNT 8.46 10*3/u L 4.50 - 11.00 10/21 Specimen Type: BLOOD No comment entered. Ordering Provider: ARIC FUENTES Report Released Date/Time: Sep 02, 2024 08:56 AM Reporting Lab: [facility] [place] [address] [address] Performing Lab: [facility] [address] [address] [facility] CBC ERYTHROCYTE S [#/VOLUME] IN BLOOD BY AUTOMATED COUNT 4.86 10*6/u L 4.23 - 5.66 10/21 Specimen Type: BLOOD No comment entered. Ordering Provider: ARIC FUENTES Report Released Date/Time: Sep 02, 2024 08:56 AM Reporting Lab: [facility] [place] [address] [address] Performing Lab: [facility] [place] [address] [address] [facility] CBC HEMOGLOBIN [MASS/VOLUM E] IN BLOOD 14.9 g/dL 12.8 - 17 10/21 Specimen Type: BLOOD No comment entered. Ordering Provider: ARIC FUENTES Report Released Date/Time: Sep 02, 2024 08:56 AM Reporting Lab: [facility] [place] [address] [address] Performing Lab: [facility] [place] [facility] [address] [facility] [address] [facility] CBC HEMATOCRIT [VOLUME FRACTION] OF BLOOD BY AUTOMATED COUNT 45.7 39.2 - 50.4 10/21 Specimen Type: BLOOD No comment entered. Ordering Provider: ARIC FUENTES Report Released Date/Time: Sep 02, 2024 08:56 AM Reporting Lab: [facility] [address] [facility] [address] Performing Lab: [facility] [address] [facility] [address] [facility] CBC MCV [ENTITIC VOLUME] BY AUTOMATED COUNT 94.0 fL 82 - 99 10/21 Specimen Type: BLOOD No comment entered. Ordering Provider: ARIC FUENTES Report Released Date/Time: Sep 02, 2024 08:56 AM Reporting Lab: [facility] [facility] [address] [facility] [address] Performing Lab: [facility] [place] [facility] [address] [facility] [address] [facility] CBC MCHC [MASS/VOLUM E] BY AUTOMATED COUNT 32.6 g/dL 30.8 - 35.1 10/21 Specimen Type: BLOOD No comment entered. Ordering Provider: ARIC FUENTES Report Released Date/Time: Sep 02, 2024 08:56 AM Reporting Lab: [facility] [place] [facility] [address] [facility] [address] Performing Lab: [facility] [place] [facility] [address] [facility] [address] [facility] CBC PLATELETS [#/VOLUME] IN BLOOD BY AUTOMATED COUNT 180 10*3/u L 140 - 360 10/21 Specimen Type: BLOOD No comment entered. Ordering Provider: ARIC FUENTES Report Released Date/Time: Sep 02, 2024 08:56 AM Reporting Lab: [facility] [place] [facility] [address] [facility] [address] Performing Lab: [facility] [place] [facility] [address] [facility] [address] [facility] CBC ERYTHROCYTE DISTRIBUTIO N WIDTH [RATIO] BY AUTOMATED COUNT 12.9 12.0 - 16.0 10/21 Specimen Type: BLOOD No comment entered. Ordering Provider: ARIC FUENTES Report Released Date/Time: Sep 02, 2024 08:56 AM Reporting Lab: [facility] [address] [facility] [address] Performing Lab: [facility] [place] [facility] [address] [facility] [address] [facility] [place] CBC MCH [ENTITIC MASS] BY AUTOMATED COUNT 30.7 pg 26.2 - 32.6 10/21 Specimen Type: BLOOD No comment entered. Ordering Provider: ARIC FUENTES Report Released Date/Time: Sep 02, 2024 08:56 AM Reporting Lab: [facility] [place] [facility] [address] [facility] [address] Performing Lab: [facility] [place] [facility] [address] [facility] [address] [facility] LIPID PANEL, NON FASTING CHOLESTEROL [MASS/VOLUM E] IN SERUM OR PLASMA 139 mg/dL 10/21 Specimen Type: SERUM No comment entered. Ordering Provider: ARIC FUENTES Report Released Date/Time: Sep 02, 2024 08:58 AM Reporting Lab: [facility] [place] [facility] [address] [facility] [address] Performing Lab: [facility] [place] [facility] [address] [facility] [address] [facility] [place] LIPID PANEL, NON FASTING TRIGLYCERID E [MASS/VOLUM E] IN SERUM OR PLASMA 129 mg/dL 0 - 150 10/21 Specimen Type: SERUM No comment entered. Ordering Provider: ARIC FUENTES Report Released Date/Time: Sep 02, 2024 08:58 AM Reporting Lab: [facility] [place] [facility] [address] [facility] [address] Performing Lab: [facility] [place] [facility] [address] [facility] [address] [facility] [place] LIPID PANEL, NON FASTING CHOLESTEROL IN LDL [MASS/VOLUM E] IN SERUM OR PLASMA BY CALCULATION 69 mg/dL 0 - 129 10/21 Specimen Type: SERUM No comment entered. Ordering Provider: ARIC FUENTES Report Released Date/Time: Sep 02, 2024 08:58 AM Reporting Lab: [facility] [place] [facility] [address] [facility] [address] Performing Lab: [facility] [place] [facility] [address] [facility] [address] [facility] LIPID PANEL, NON FASTING CHOLESTEROL .TOTAL/CHOL ESTEROL IN HDL [MASS RATIO] IN SERUM OR PLASMA 3.2 10/21 Specimen Type: SERUM No comment entered. Ordering Provider: ARIC FUENTES Report Released Date/Time: Sep 02, 2024 08:58 AM Reporting Lab: [facility] [place] [facility] [address] [facility] [address] Performing Lab: [facility] [place] [facility] [address] [facility] [address] [facility] LIPID PANEL, NON FASTING CHOLESTEROL IN HDL [MASS/VOLUM E] IN SERUM OR PLASMA 44 mg/dL 40 - 60 10/21 Specimen Type: SERUM No comment entered. Ordering Provider: ARIC FUENTES Report Released Date/Time: Sep 02, 2024 08:58 AM Reporting Lab: [facility] [place] [facility] [address] [facility] [address] Performing Lab: [facility] [place] [facility] [address] [facility] [address] [facility] [place] [facility] LIVER FUNCTION PROTEIN [MASS/VOLUM E] IN SERUM OR PLASMA 7.8 g/dL 6.0 - 8.3 10/21 Specimen Type: SERUM No comment entered. Ordering Provider: ARIC FUENTES Report Released Date/Time: Sep 02, 2024 08:56 AM Reporting Lab: [facility] [address] [facility] [address] Performing Lab: [facility] [address] [facility] [address] [facility] [place] LIVER FUNCTION ALBUMIN [MASS/VOLUM E] IN SERUM OR PLASMA 3.9 g/dL 3.5 - 5.0 10/21 Specimen Type: SERUM No comment entered. Ordering Provider: ARIC FUENTES Report Released Date/Time: Sep 02, 2024 08:56 AM Reporting Lab: [facility] [place] [facility] [address] [facility] [address] Performing Lab: [facility] [place] [facility] [address] [facility] [address] [facility] [place] LIVER FUNCTION ALKALINE PHOSPHATASE [ENZYMATIC ACTIVITY/VO LUME] IN SERUM OR PLASMA 160 U/L 40 - 150 10/21 H Specimen Type: SERUM No comment entered. Ordering Provider: ARIC FUENTES Report Released Date/Time: Sep 02, 2024 08:56 AM Reporting Lab: [facility] [place] [facility] [address] [facility] [address] Performing Lab: [facility] [place] [facility] [address] [facility] [address] [facility] LIVER FUNCTION ASPARTATE AMINOTRANSF ERASE [ENZYMATIC ACTIVITY/VO LUME] IN SERUM OR PLASMA 22 U/L 5 - 34 10/21 Specimen Type: SERUM No comment entered. Ordering Provider: ARIC FUENTES Report Released Date/Time: Sep 02, 2024 08:56 AM Reporting Lab: [facility] [address] [facility] [address] Performing Lab: [facility] [place] [facility] [address] [facility] [address] [facility] [place] LIVER FUNCTION ALANINE AMINOTRANSF ERASE [ENZYMATIC ACTIVITY/VO LUME] IN SERUM OR PLASMA 28 U/L 10/21 Specimen Type: SERUM No comment entered. Ordering Provider: ARIC FUENTES Report Released Date/Time: Sep 02, 2024 08:56 AM Reporting Lab: [facility] [place] [facility] [address] [facility] [address] Performing Lab: [facility] [place] [address] [address] [facility] [place] LIVER FUNCTION BILIRUBIN.T OTAL [MASS/VOLUM E] IN SERUM OR PLASMA 0.8 mg/dL 0.2 - 1.2 10/21 Specimen Type: SERUM No comment entered. Ordering Provider: ARIC FUENTES Report Released Date/Time: Sep 02, 2024 08:56 AM Reporting Lab: [facility] [place] [address] [address] Performing Lab: [facility] [place] [address] [address] [facility] MICROALBU MIN CREATININ E RATIO PANEL MICROALBUMI N/CREATININ E [MASS RATIO] IN URINE 11.9 mg/g 0 - 29.9 10/21 Specimen Type: URINE No comment entered. Ordering Provider: ARIC FUENTES Report Released Date/Time: Sep 02, 2024 08:56 AM Reporting Lab: [facility] [place] [address] [address] Performing Lab: [facility] [place] [facility] [address] [facility] [address] [facility] [place] MICROALBU MIN CREATININ E RATIO PANEL MICROALBUMI N [MASS/VOLUM E] IN URINE 2.4 mg/dL 10/21 Specimen Type: URINE No comment entered. Ordering Provider: ARIC FUENTES Report Released Date/Time: Sep 02, 2024 08:56 AM Reporting Lab: [facility] [place] [address] [address] Performing Lab: [facility] [place] [facility] [address] [facility] [address] [facility] [place] MICROALBU MIN CREATININ E RATIO PANEL CREATININE [MASS/VOLUM E] IN URINE 202.37 mg/dL 10/21 Specimen Type: URINE No comment entered. Ordering Provider: ARIC FUENTES Report Released Date/Time: Sep 02, 2024 08:56 AM Reporting Lab: [facility] [place] [facility] [address] [facility] [address] Performing Lab: [facility] [place] [facility] [address] [facility] [address] [facility] PTH INTACT PARATHYRIN. INTACT [MASS/VOLUM E] IN SERUM OR PLASMA 77.4 pg/mL 8.7 - 77.1 10/21 H Specimen Type: SERUM No comment entered. Ordering Provider: ARIC FUENTES Report Released Date/Time: Sep 02, 2024 08:56 AM Reporting Lab: [facility] [place] [facility] [address] [facility] [address] Performing Lab: [facility] [place] [facility] [address] [facility] [address] [facility] [place] VITAMIN D (25-OH) 25-HYDROXYV ITAMIN D3 [MASS/VOLUM E] IN SERUM OR PLASMA 39 ng/mL 20 - 50 10/21 Specimen Type: SERUM No comment entered. Ordering Provider: ARIC FUENTES Report Released Date/Time: Sep 02, 2024 08:56 AM Reporting Lab: [facility] [place] [facility] [address] [facility] [address] Performing Lab: [facility] [place] [address] [address] [facility] [place] [facility] GAMMA-GTP GAMMA GLUTAMYL TRANSFERASE [ENZYMATIC ACTIVITY/VO LUME] IN SERUM OR PLASMA 116 U/L 10 - 65 10/21 H Specimen Type: SERUM No comment entered. Ordering Provider: ARIC FUENTES Report Released Date/Time: Oct 21, 2024 03:59 PM Reporting Lab: [facility] [place] [facility] [address] [facility] [address] Performing Lab: [facility] [place] [facility] [address] [facility] [address] [facility] [place] [facility] PSA PROSTATE SPECIFIC AG [MASS/VOLUM E] IN SERUM OR PLASMA 36.05 ng/mL 0.00 - 4.00 10/12 H Specimen Type: SERUM No comment entered. Ordering Provider: ARIC FUENTES Report Released Date/Time: Oct 12, 2024 01:21 PM Reporting Lab: [facility] [place] [facility] [address] [facility] [address] Performing Lab: [facility] [place] [facility] [address] [facility] [address] [facility] [place] VITAMIN B12 COBALAMIN (VITAMIN B12) [MASS/VOLUM E] IN SERUM OR PLASMA 443 pg/mL 200 - 900 12/23 Specimen Type: SERUM No comment entered. Ordering Provider: ARIC FUENTES Report Released Date/Time: Dec 08, 2023 01:18 PM Reporting Lab: [facility] [place] [facility] [address] [facility] [address] Performing Lab: [facility] [place] [facility] [address] [facility] [address] [facility] [place] [facility] Vital Signs Combined list of inpatient and outpatient Vital Signs from Department of Defense and Veterans Affairs, ranging from 12 months to all on record, depending upon the facility. Vital Sign Value Date Comments Source SYSTOLIC BLOOD PRESSURE 118 12/31/19 25 11:00:00 [facility] [place] [facility] DIASTOLIC BLOOD PRESSURE 70 025 11:00:00 [facility] [place] [facility] PULSE OXIMETRY 97 12/30/2024 11:00:00 [facility] [place] [facility] WEIGHT 206 12/30/2024 11:00:00 [facility] [place] [facility] BMI 30 kg/m2 12/30/2024 11:00:00 [facility] PAIN 0 12/30/2024 11:00:00 [facility] TEMPERATURE 97.6 12/30/2024 11:00:00 [facility] PULSE 74 12/30/2024 11:00:00 [facility] RESPIRATION 18 12/30/2024 11:00:00 [facility] SYSTOLIC BLOOD PRESSURE 124 12/08/19 25 14:00:00 [facility] DIASTOLIC BLOOD PRESSURE 70 025 14:00:00 [facility] PULSE OXIMETRY 97 12/07/2024 14:00:00 [facility] WEIGHT 211 12/07/2024 14[facility]00:00 [facility] BMI 30 kg/m2 12/07/2024 14:00:00 [facility] PAIN 0 12/07/2024 14:00:00 [facility] TEMPERATURE 98.1 12/07/2024 14:00:00 [facility] PULSE 70 12/07/2024 14:00:00 [facility] RESPIRATION 20 12/07/2024 14:00:00 [facility] SYSTOLIC BLOOD PRESSURE 110 11/09/19 25 16:00:00 [facility] DIASTOLIC BLOOD PRESSURE 60 025 16:00:00 [facility] PULSE OXIMETRY 96 11/09/2024 16:00:00 [facility] WEIGHT 204 11/09/2024 16[facility]00:00 [facility] BMI 29 kg/m2 11/09/2024 16:00:00 [facility] PAIN 0 11/09/2024 16:00:00 [facility] TEMPERATURE 96.8 11/09/2024 16:00:00 [facility] [...] 08/31/2024 13:52:46 [facility] Encounters Combined list of: 1) Encounters from Department of Veterans Affairs facilities going backup to the last 18 months, not all VA inpatient encounters are included; 2) Encounters from the Department of Defense facilities going backup to 280 months. Location Location Details Encounter Type Encounter Number Reason For Visit Attending Provider ADM Date DC Date Status Disposition Source [facility] [place] [facility] HC PRO PHONE CALL 5-10 MIN [id number] Diagnos is: ICD-10- CM H54.8 Legal blindne ss, as defined in [place] MARLENY TIRADO 07/06 [facility] OFFICE O/P EST LOW 20-29 MIN [id number] Diagnos is: ICD-10- CM E11.9 Type 2 diabete s mellitu 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 Kristen CORTEZ 07/08 [facility] [place] [facility] [place] [facility] Outpatient Encounter [id number] 07/13 [facility] [place] [facility] [place] EYE EXAM ESTABLISH PATIENT [id number] Diagnos is: ICD-10- CM H54.8 Legal blindne ss, [place] defined in [place] KULWINDER RENDON 07/14 [facility] [place] [facility] [place] [facility] Outpatient Encounter [id number] 07/19 [facility] [place] [facility] HC PRO PHONE CALL 21-30 MIN [id number] Diagnos is: ICD-10- CM H54.8 Legal blindne ss, as defined in [place] ANGELY NUNEZ 07/22 [facility] [place] [facility] SELF CARE MNGMENT TRAINING [id number] Diagnos is: ICD-10- CM I10 Essenti al (primar y) hyperte nsion ANDRA PINA SHAGGY 07/30 [facility] [place] SELF CARE MNGMENT TRAINING [id number] Diagnos is: ICD-10- CM E11.9 Type 2 diabete s mellitu 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 ANDRA PINA SHAGGY 08/21 [facility] [place] CASE MANAGEMENT [id number] Diagnos is: ICD-10- CM 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 BILLIE He 08/24 [facility] [place] HHCP-SERV OF OT,EA 15 MIN [id number] Diagnos is: ICD-10- CM R26.9 Unspeci fied abnorma lities of gait and mobilit y REINA,CAT HY L 08/25 [facility] [place] [facility] [place] Outpatient Encounter [id number] Diagnos is: ICD-10- CM R25.1 Tremor, unspeci fied GINA,SHANE ICA JOSE ANGEL 08/26 [facility] [place] [facility] [place] RN CARE EA 15 MIN HH/HOSPICE [id number] Diagnos is: ICD-10- CM Z91.148 Patient 's other noncomp l with meds regimen for other reason ANDRA PINA SHAGGY 09/02 [facility] [place] Outpatient Encounter [id number] 09/15 [facility] [place] QNHP OL DIG ASSMT&MGMT 21+ [id number] Diagnos is: ICD-10- CM Z79.899 Other prison (curren t) drug therapy VALENTINAJOSE DE JESUS Doroteo 09/24 [facility] [place] [facility] [place] QNHP OL DIG ASSMT&MGMT 21+ [id number] Diagnos is: ICD-10- CM J44.89 Other specifi ed chronic obstruc tive pulmona ry disease ELVIRA OBANDO 10/02 [place] [facility] SELF CARE MNGMENT TRAINING [id number] Diagnos is: ICD-10- CM Z99.81 Depende nce on supplem ental oxygen ANDRA PINA 10/02 [facility] [place] [facility] [place] OFFICE O/P EST LOW 20 MIN [id number] Diagnos is: ICD-10- CM E11.9 Type 2 diabete s mellitu 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 Kristen CORTEZ 10/06 [facility] [place] [facility] [place] HOME VISIT IM INJECTION [id number] Diagnos is: ICD-10- CM E11.9 Type 2 diabete s mellitu 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 ANDRA PINA 10/08 [facility] [place] [facility] [place] [facility] Outpatient [facility]counter [id number] 10/14 [facility] [place] [facility] [place] SELF CARE MNGMENT TRAINING [id number] Diagnos is: ICD-10- CM E11.9 Type 2 diabete s mellitu 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 ANDRA PINA 10/28 [facility] [place] [facility] [place] MEASURE BLOOD OXYGEN LEVEL [id number] Diagnos is: ICD-10- CM E11.9 Type 2 diabete s mellitu 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 ANDRA PINA [facility] En[facility] [id number] 12/06 [facility] QNHP OL DIG ASSMT&MGMT 21+ [id number] Diagnos is: ICD-10- CM Z79.899 Other prison (curren t) drug therapy JOSE DE JESUS MONTGOMERY 12/07 [facility] SELF CARE MNGMENT TRAINING [id number] Diagnos is: ICD-10- CM 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 , unspeci fied ANDRA PINA 12/17 [facility] En[facility] [id number] 12/22 [facility] FALL RISK ASSESSMENT DOCD [id number] Diagnos is: ICD-10- CM H54.8 Legal blindne ss, as defined [place] MARLENY TIRADO 12/23 [facility] HC PRO PHONE CALL 11-20 MIN [id number] 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 ANDRA PINA 12/29 [facility] En[facility] [id number] 01/06 [facility] [place] OFFICE O/P EST MOD 30 MIN [id number] Diagnos is: ICD-10- CM L60.3 Nail dystrop hy AGUILA FOREMAN ES F 01/11 [place] [facility] SELF CARE MNGMENT TRAINING [id number] 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 ANDRA PINA 01/13 [facility] Out[facility] Encounter [id number] 01/13 [facility] Encounter [id number] 01/13 [facility] SELF CARE MNGMENT TRAINING [id number] Diagnos is: ICD-10- CM H54.8 Legal blindne ss, as defined in [place] ANDRA PINA 01/21 [facility] Out[facility] Encounter [id number] 01/28 [facility] SELF CARE MNGMENT TRAINING [id number] Diagnos is: ICD-10- CM Z99.81 Depende nce on supplem ental oxygen ANDRA PINA 02/03 [facility] Out[facility] Encounter [id number] 02/03 [facility] MED NUTRITION INDIV SUBSEQ [id number] Diagnos is: ICD-10- CM E66.3 Overwei KULWINDER Taveras David 02/09 [facility] MEASURE BLOOD OXYGEN LEVEL [id number] Diagnos is: ICD-10- CM 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 , unspeci fied ANDRA PINA 02/17 [facility] Out[facility]counter [id number] 02/28 [facility] MEASURE BLOOD OXYGEN LEVEL [id number] Diagnos is: ICD-10- CM 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 , unspeci fied ANDRA PINA 03/03 [facility] Out[facility]counter [id number] 03/22 [facility] MEASURE BLOOD OXYGEN LEVEL [id number] Diagnos is: ICD-10- CM 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 , unspeci fied ANDRA PINA 03/23 [facility] OFFICE O/P EST MOD 30 MIN [id number] Diagnos is: ICD-10- CM H54.8 Legal blindne ss, as defined in [place] KULWINDER RENDON 03/24 [facility] CMPTR OPHTH DX IMG ANT SEGMT [id number] Diagnos is: ICD-10- CM 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, bilater al KULWINDER RENDON 03/24 [facility] [place] Out[place] Encounter [id number] 03/28 [facility] Outpatient Encounter [id number] 03/30 [facility] OFFICE O/P EST HI 40 MIN [id number] Diagnos is: ICD-10- CM H54.8 Legal blindne ss, as defined in [place] AUGUSTINA ANDRADE 03/31 [facility] SENSORY INTEGRATIO N [id number] Diagnos is: ICD-10- CM H54.8 Legal blindne ss, [place] defined [place] RAMA TIRADO ISTOPHER T 03/31 [facility] RN CARE EA 15 MIN HH/HOSPICE [id number] Diagnos is: ICD-10- CM 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 , unspeci ANDRA Hunt 04/01 [facility] QNHP OL DIG ASSMT&MGMT 21+ [id number] Diagnos is: ICD-10- CM 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 JOSE DE JESUS MONTGOMERY 04/04 [facility] [place] MEASURE BLOOD OXYGEN LEVEL [id number] Diagnos is: ICD-10- CM 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 , unspeci ANDRA Hunt 04/21 [facility] [place] QNHP OL DIG ASSMT&MGMT 5-10 [id number] Diagnos is: ICD-10- CM E11.9 Type 2 diabete s mellitu 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 ELVIRA OBANDO 04/28 [place] [facility] Outpatient Encounter [id number] 1.05/03 [facility] HLTH BHV ASSMT/REAS SESSMENT [id number] 1. Diagnos is: ICD-10- CM H54.8 Legal blindne ss, [place] RAMA TIRADO ISTOPHER T 05/04 [facility] SELF CARE MNGMENT TRAINING [id number] 1. Diagnos is: ICD-10- CM E11.9 Type 2 diabete s mellitu 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 ANDRA PINA 05/12 [facility] Out[facility] Encounter [id number] 05/31 [facility] IMMUNIZATI [place] ADMIN [id number] ANDRA PINA 06/01 [facility] MEASURE BLOOD OXYGEN LEVEL [id number] Diagnos is: ICD-10- CM 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 , unspeci fied ANDRA PINA 06/01 [facility] [place] OFFICE O/P EST LOW 20 MIN [id number] Diagnos is: ICD-10- CM L60.3 Nail dystrop hy AGUILA FOREMAN ES F 06/03 [place] [facility] [place] Outpatient Encounter [id number] 06/03 [facility] QNHP OL DIG ASSMT&MGMT 21+ [id number] 1. 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 ANDRA PINA 06/09 [facility] [place] Outpatient Encounter [id number] 06/21 [facility] [place] HOME VISIT IM INJECTION [id number] Diagnos is: ICD-10- CM 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 , unspeci ANDRA Hunt 06/22 [facility] [place] SELF CARE MNGMENT TRAINING [id number] Diagnos is: ICD-10- CM 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 , unspeci ANDRA Hunt 06/28 [facility] HC PRO PHONE CALL 5-10 MIN [id number] Diagnos is: ICD-10- CM H54.8 Legal blindne ss, [place] MARLENY TIRADO 07/01 [facility] [place] MEASURE BLOOD OXYGEN LEVEL [id number] Diagnos is: ICD-10- CM 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 , unspeci fied ANDRA PINA COON 07/13 [facility] [place] SELF CARE MNGMENT TRAINING [id number] 1. Diagnos is: ICD-10- CM Z99.81 Depende nce on supplem ental oxygen ANDRA PINA SHAGGY 08/02 [facility] QNHP OL DIG ASSMT&MGMT 21+ [id number] Diagnos is: ICD-10- CM Z79.899 Other prison (curren t) drug therapy JOSE DE JESUS MONTGOMERY 08/17 [facility] CASE MANAGEMENT [id number] 1. 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 Diagnos is: ICD-10- CM 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 , unspeci fied ANDRA PINA COON 08/24 [facility] HHCP-SERV OF OT,EA 15 MIN [id number] . Diagnos is: ICD-10- CM H54.8 Legal blindne ss, [place] KYE LEAVITT 08/26 [facility] [place] Outpatient Encounter [id number] 1. Diagnos is: ICD-10- CM Z99.81 Depende nce on supplem ental oxygen GINA,SHANE ICA JOSE ANGEL 08/31 [facility] OL DIG ASSMT&MGMT 5-10 [id number] Diagnos is: ICD-10- CM J44.89 Other specifi ed chronic obstruc tive pulmona ry disease MAXIMINO,JUNE IE 09/02 [place] [facility] [place] SELF CARE MNGMENT TRAINING [id number] Diagnos is: ICD-10- CM I10 Essenti al (primar y) hyperte nsion SILVANAANUPBereket COON 09/16 [facility] [place] Outpatient Encounter [id number]/23 [facility] [place] FALL RISK ASSESSMENT DOCD [id number] 1. Diagnos is: ICD-10- CM H54.8 Legal blindne ss, [place] defined [place] RAMA TIRADO ISTOPHER T 09/26 [facility] [place] SELF CARE MNGMENT TRAINING [id number] Diagnos is: ICD-10- CM J44.89 Other specifi ed chronic obstruc tive pulmona ry disease ANDRA PINA 10/13 [facility] MOD 30 MIN [id number] Diagnos is: ICD-10- CM L60.3 Nail dystrop hy ROSS,CHARL ES F 10/21 [place] [facility] [place] Outpatient Encounter [id number]/21 [facility] [place] SELF CARE MNGMENT TRAINING [id number] Diagnos is: ICD-10- CM I10 Essenti al (primar y) hyperte nsion ANDRA PINA 11/09 [facility] NQHP OL DIG ASSMT&MGMT 21+ [id number] Diagnos is: ICD-10- CM Z79.899 Other prison (curren t) drug therapy JOSE DE JESUS MONTGOMERY 11/24 [facility] Outpatient Encounter [id number] 11/29 [facility] NQHP OL DIG ASSMT&MGMT 5-10 [id number] Diagnos is: ICD-10- CM J44.89 Other specifi ed chronic obstruc tive pulmona ry disease Doroteo ROY 12/01 [facility] [place] Outpatient Encounter [id number] 12/02 [facility] MEASURE BLOOD OXYGEN LEVEL [id number] Diagnos is: ICD-10- CM Z99.81 Depende nce on supplem ental oxygen ANDRA PINA 12/07 [facility] [place] CASE MANAGEMENT [id number] Diagnos is: ICD-10- CM R53.1 Weaknes s ANDRA PINA 12/30 [facility] [place] Social History Combined list of available smoking, tobacco, and other social history from Department of Defense and Veterans Affairs facilities. Social History Type Response Date Comment Source Tobacco smoking status NHIS VA-TOBACCO USE FORMER CIGARETTES 08/31/20[facility] History of tobacco use VA-TOBACCO NEVER USED OTHER TYPE 08/31/2024 [facility] History of tobacco use VA-TOBACCO FORMER USER 09/02/2023 [facility] History of tobacco use VA-TOBACCO FORMER USER 04/24/2022 [facility] History of tobacco use VA-TOBACCO USE DECLINED TO ANSWER 12/05/2021 [facility] History of tobacco use VA-TOBACCO USE DECLINED TO ANSWER 11/24/2021 [facility] History of tobacco use VA-TOBACCO NEVER USED 09/20/2020 [facility]/11/2018 [facility] History of tobacco use LIFETIME NON-TOBACCO USER 01/27/2018 [facility] History of tobacco use QUIT TOBACCO USE > 7 YEARS AGO 11/10/2016 quit 20 years ago [facility] History of tobacco use QUIT TOBACCO USE > 7 YEARS AGO 09/10/2015 [facility] History of tobacco use QUIT TOBACCO USE > 7 YEARS AGO 10/11/2012 [facility] History of tobacco use QUIT TOBACCO USE > 7 YEARS AGO 04/12/2010 Quit in 1996. [facility] History of tobacco use QUIT TOBACCO USE > 7 YEARS AGO 03/16/2007 [facility] History of tobacco use QUIT TOBACCO USE > 7 YEARS AGO 12/08/2005 HX of tobacco use for approx 40 yrs. [facility] Plan of Care List of future care activities from [facility] of [facility] facilities. Additional future care activities may be listed in the Assessment and Plan section. Date/Time Care Activity Care Activity Detail Facili ty 02/24/2025 AMBULATORY - MEDICINE AMBULATORY - MEDICI NE [facility] Advance Directives List of completed, amended, or rescinded Advance Directives on record at Department of Veterans Affairs facilities. An actual copy of the Directive is not included. Date Advance Directive Provider Source 11/11/2016 ADVANCE DIRECTIVE ELROY CHÁVEZ [facility] 07/08/2006 ADVANCE DIRECTIVE CHAPARRO DICK [place] [facility]
[2025-01-04 14:09] LABS: Free T4 (Free Thyroxine) 1.05 ng/dL (0.71-1.85); Thyroid Stimulating Hormone 1.41 uIU/mL (0.32-4.0)
== END 2025-01-04 11:26 | disposition home or self-care (01) ==
LOC: HO.10HDL 11:25
PROVIDERS: Visit Provider Internal Medicine Endocrinology, Diabetes & Metabolism
DX: E04.1 Nontoxic single thyroid nodule (principal)
CPT/HCPCS: 36415; 84439; 84443; 99202

== ENCOUNTER 2025-02-15 12:58 | Outpatient (AMB) | payer MEDICARE, OTHER, SELFPAY ==
--- NOTE | 2025-02-15 13:01 | MHC.OFFVIS ---
Vital Signs 02/15/25 13:02 Height 6 ft Weight 220 lb 0.341 oz BMI 29.8 BP 160/68 H Blood Pressure Location Rt brachial Position Sitting Pulse 85 Pulse Source Pulse Oximeter Pulse Oximetry (%) 92 Oxygen Delivery Method Room Air Intake Visit Reasons: Nontoxic single thyroid nodule Intake Note: Patient present today for Nontoxic single thyroid nodule office visit. Professional Engineer Required: No Accompanied by: Significant Other Allergies Sulfa Drugs Allergy (Intermediate, Uncoded 02/15/25 13:07) Vomiting Medication List - Last Reconciled 02/15/25 by Crys Hou MD amlodipine 10 mg PO DAILY amoxicillin 2,000 mg PO atorvastatin 80 mg PO DAILY brinzolamide-brimonidine 1-0.2 % drps ophthalmic (eye) carvedilol 25 mg PO BID eplerenone 25 mg PO DAILY hksobxvpxwz-sbwyxpfbi-jcrzqctm 100-62.5-25 mcg (Trelegy Ellipta) 1 inh inhalation DAILY 30 days lansoprazole 30 mg PO latanoprost 0.005% drps ophthalmic (eye) losartan 25 mg PO DAILY pantoprazole 40 mg PO DAILY primidone 50 mg PO BID timolol maleate 0.5% drps ophthalmic (eye) torsemide 20 mg PO DAILY valsartan 320 mg PO DAILY vit C,K-Ag-ktmyf-lutein-zeaxan 250-90-40-1 mg (PreserVision AREDS-2) 1 tab PO BID HPI Comments Details: 89-year-old male coming in today for initial evaluation of solitary thyroid nodule. No prior history of thyroid disease. CT chest done 09/30/2024: Reported a 2.1 cm right-sided thyroid nodule. Ultrasound thyroid done 12/19/2024 I reviewed the images myself which showed a right 2.8 X2.1 X2.6 cm benign cyst with a very small solid component. Per EVERT guidelines there is less than 1% chance of malignancy. Given the size of the nodule we will keep an eye on it with a repeat ultrasound in 1 year from the last 1 which would be in December 2025. Patient currently denies heat or cold intolerance, diarrhea or constipation, hair loss, palpitation, anxiety, weight changes, mood changes, low energy, changes in appearance of eyes or vision changes, tremors, increased diaphoresis or dry skin. ? Patient denies any difficulty swallowing, pain on swallowing or voice changes or difficulty breathing. Patient denies any history of childhood neck radiation. Denies having ever used lithium, amiodarone or biotin supplements. Patient denies any family history of thyroid cancer or thyroid disease. Physical exam General: sitting comfortably in no acute distress HEENT: normocephalic/atraumatic, Neck: supple, symmetrical, no thyromegaly , Cardiac: normal heart sounds Pulm: normal breath sounds B/L, no added breath sounds Abd: not distended, no tenderness Extremities: no edema, no signs of myxedema Laboratory Tests 01/04/25 11:30 TSH 1.41 Free T4 1.05 EXAMINATION: US THYROID HISTORY: E04.1 - Nontoxic single thyroid nodule TECHNIQUE: Real-time grayscale ultrasound imaging was performed and images were reviewed. COMPARISON: Correlation is made with an unenhanced chest CT dated 09/30/2024. FINDINGS: SIZE: The right thyroid lobe measures 6.0 x 3.1 x 2.4 cm. The left thyroid lobe measures 3.9 x 2.0 x 2.1 cm. The isthmus measures 6 mm. FLOW: Flow to the gland is normal. ECHOGENICITY: The echotexture of the gland is homogeneous. NODULES: There is a single nodule on the right corresponding to the abnormality seen on CT. Imaging characteristics are as follows: Nodule #: 1 Location: Interpolar region of the right thyroid lobe measuring 2.8 x 2.1 x 2.6 cm. The lesion is predominantly cystic with a small mural nodule. Shape: Wider than tall (0 points) Margins: Smooth (0 points) Echotexture: Hypoechoic (2 points) Composition: Mixed (1 point) Calcifications: None (0 points) Total points: 3 TIRADS: TR3: Mildly suspicious. US/US thyroid IMPRESSION: Mildly suspicious, predominantly cystic nodule in the right thyroid lobe corresponding to the lesion noted on CT. Follow-up is recommended. EXAMINATION: CT CHEST WITHOUT IV CONTRAST 09/30/24 INDICATION: R93.89 - Abnormal findings on diagnostic imaging of other specified body... COMPARISON: Correlation is made with PA and lateral views of the chest dated 06/03/2024. TECHNIQUE: Helical CT scan of the chest was performed without intravenous contrast. Coronal and sagittal reformatted images were generated and reviewed. This CT exam was performed with one or more of the following dose reduction techniques: automated exposure control, adjustment of the mA and/or kV according to patient size, use of iterative reconstruction technique. DLP: 223 mGy-cm CHEST: THYROID: There is a 2.1 cm nodule in the right thyroid lobe. LUNGS:There are moderate emphysematous changes. There is subpleural scarring and interstitial prominence bilaterally. No focal airspace opacity or mass is identified to correspond to the abnormality noted on chest x-ray. MEDIASTINUM: There are 10 mm pericarinal lymph nodes. AYAN: Evaluation of the hilar regions is limited by lack of intravenous contrast material. CARDIOVASCULATURE: The heart is normal in size. There is no pericardial effusion. The thoracic aorta is normal in caliber. DEGREE OF CORONARY CALCIFICATION: severe PLEURA: There is no pleural effusion. No pneumothorax. MAIN AIRWAYS: The mainstem bronchi and proximal branches are patent. AXILLA: There is no axillary lymphadenopathy. BONES AND SOFT TISSUES: There is degenerative disc disease of the spine. UPPER ABDOMEN: The visualized portions of the liver, spleen, and adrenals have an unremarkable appearance. CT/CT chest wo IV con IMPRESSION: 1. Moderate emphysema. Subpleural scarring and interstitial prominence. No mass or airspace opacity is seen to correspond to the abnormality noted on chest x-ray from 06/03/2024. This likely represented pneumonia which resolved in the interim. 2. 2.1 cm right thyroid nodule. Thyroid ultrasound is suggested. [facility] Medical History (Updated 11/16/24 @ 10:00 by Phuc Card MD) Thyroid nodule Tuberculosis Asbestos-induced pleural plaque Abnormal chest x-ray Atelectasis Elevated diaphragm Chronic respiratory failure COPD (chronic obstructive pulmonary disease) Surgical History Hx of heart artery stent History of knee replacement History of circumcision Hx of hernia repair History of prostate surgery Family History Father No problems noted. Social History Patient Tobacco Use Status: Former Tobacco user Tobacco use type: Cigarette Years Smoked: Quit 1997 Physical Exam Vital Signs: Last Vital Signs Pulse 85 02/15/25 13:02 BP 160/68 H 02/15/25 13:02 Pulse Ox 92 02/15/25 13:02 Oxygen Delivery Method Room Air 02/15/25 13:02 BMI result Body Mass Index 29.8 Assessment & Plan Assessment & Plan (1) Thyroid nodule: Code(s): E04.1 - Nontoxic single thyroid nodule Category: Medical Plan: 89-year-old male with no family history of thyroid cancer with no personal history of head or neck radiation who is coming in today to establish care with me for solitary thyroid nodule. He was previously seen by Dr. Child at the initial visit. 89-year-old male coming in today for initial evaluation of solitary thyroid nodule. No prior history of thyroid disease. CT chest done 09/30/2024: Reported a 2.1 cm right-sided thyroid nodule. Ultrasound thyroid done 12/19/2024 I reviewed the images myself which showed a right 2.8 X2.1 X2.6 cm benign cyst with a very small solid component. Per EVERT guidelines there is less than 1% chance of malignancy. Given the size of the nodule we will keep an eye on it with a repeat ultrasound in 1 year from the last 1 which would be in December 2025. No compressive symptoms, normal TFTs from December 2024. I explained that it is common to have thyroid nodules. About 95% of the time these nodules are benign. However if the nodule is > 1 cm in size or suspicious on ultrasound then a fine need aspiration biopsy is recommended. At this time given this is a cyst, with barely any solid component, this is a benign nodule. No need for FNA at this time. Plan: -ordered thyroid ultrasound to be done in December 2025 prior to follow up in January 2026 -ordered TSH and free T4 to be done prior to follow up in January 2026 -follow up in January 2026 Plan I spent 30 minutes in reviewing the record, seeing the patient and documenting in the medical record. Orders: Orders US thyroid 12/25/25 E04.1 - Nontoxic single thyroid nodule Thyroid Stimulating Hormone 01/01/26 E04.1 - Nontoxic single thyroid nodule Free T4 (Free Thyroxine) 01/01/26 E04.1 - Nontoxic single thyroid nodule Thyroid Stimulating Hormone 01/09/26 E04.1 - Nontoxic single thyroid nodule Free T4 (Free Thyroxine) 01/08/26 E04.1 - Nontoxic single thyroid nodule Patient Instructions: Do ultrasound of the thyroid in December 2025 prior to follow up in January 2026 Do thyroid blood work a few days prior to your appointment with me January 2026 Coding Level of Care Code Est Pt Level 4 (97175) Diagnoses Thyroid nodule E04.1 Time Spent (min) 30
[2025-02-15 13:02] VITALS: BP 160/68; PULSE 85; O2SAT 92; BMI 29.8
--- OUTSIDE RECORDS SUMMARY | 2025-02-15 13:21 | XMS_ITS | Encounter Summary ---
Author Organization [facility] Address [address] [place] [address] Care Team Providers Care Machine Overhauler Name Role Phone Troy Butcher Primary Care Provider [phone] Encounter Details Date Type Department Care Team (Latest Contact Info) Description 09/22/[address] [facility] - Main Lab [address] [facility] [place] [phone] Troy Butcher PA [address] [facility] [address] [place] [address] Chronic obstructive pulmonary disease, unspecified (CMS/HCC V24, [...] Care Team (Late st Contact Info) Description 03/10/2025 8:00 AM EDT Ancillary Procedure [facility] - [address] [place] [address] documented as of this encounter [...] SST tube (09/22/2024 12:00 AM EST) Pathologist [facility] Extra Tube Hold for add-ons. 09/22/2024 8:01 PM EST [facility] Comment:Auto resulted. Blood Venous blood specimen / Unknown 09/22/2024 09/22/2024 6:24 PM EST us Troy GAR LAB BLOOD ORDERABLES Final Res ult [facility] [address] [place] [address], [place] [phone] * (ABNORMAL) CBC auto differential (09/22/2024 12:00 AM EST) [facility] WBC 8.9 4.8 - 10.8 K/mcL LAB HEMETOLOGY METHOD 09/22/2024 7:40 PM [facility] RBC 4.70 4.50 - 5.50 M/mcL LAB HEMETOLOGY METHOD 09/22/2024 7:40 PM [facility] Hemoglobin 14.7 13.5 - 17.5 g/dL LAB HEMETOLOGY METHOD 09/22/2024 7:40 PM [facility] Hematocrit 45.8 42.0 - 54.0 % LAB HEMETOLOGY METHOD 09/22/2024 7:40 PM [facility] MCV 97.9 79.0 - 98.0 FL LAB HEMETOLOGY METHOD 09/22/2024 7:40 PM [facility] MCH 31.4 27.0 - 32.0 pcg LAB HEMETOLOGY METHOD 09/22/2024 7:40 PM [facility] MCHC 32.1 32.0 - 37.0 g/dL LAB HEMETOLOGY METHOD 09/22/2024 7:40 PM [facility] RDW 13.3 11.0 - 15.0 % LAB HEMETOLOGY METHOD 09/22/2024 7:40 PM [facility] Platelets 151 130 - 400 K/mcL LAB HEMETOLOGY METHOD 09/22/2024 7:40 PM [facility] MPV 12.4(H) 7.0 - 11.0 FL LAB HEMETOLOGY METHOD 09/22/2024 7:40 PM [facility] NRBC 0.0 <1.0 % LAB HEMETOLOGY METHOD 09/22/2024 7:40 PM [facility] NRBC Absolute 0.00 <0.10 K/mcL LAB HEMETOLOGY METHOD 09/22/2024 7:40 PM [facility] Neutrophils Relative 65.2 % LAB HEMETOLOGY METHOD 09/22/2024 7:40 PM [facility] Lymphocytes Relative 23.1 % LAB HEMETOLOGY METHOD 09/22/2024 7:40 PM [facility] Monocytes Relative 9.5 % LAB HEMETOLOGY METHOD 09/22/2024 7:40 PM [facility] Eosinophils Relative 1.4 % LAB HEMETOLOGY METHOD 09/22/2024 7:40 PM [facility] Basophils Relative 0.6 % LAB HEMETOLOGY METHOD 09/22/2024 7:40 PM [facility] Immature Granulocytes Relative 0.2 % LAB HEMETOLOGY METHOD 09/22/2024 7:40 PM [facility] Neutrophils Absolute 5.78 1.50 - 7.00 K/mcL LAB HEMETOLOGY METHOD 09/22/2024 7:40 PM [facility] Lymphocytes Absolute 2.05 1.00 - 5.00 K/mcL LAB HEMETOLOGY METHOD 09/22/2024 7:40 PM EST [facility] Monocytes Absolute 0.84 0.20 - 1.00 K/[facility] LAB HEMETOLOGY METHOD 09/22/2024 7:40 PM EST [facility] Eosinophils Absolute 0.12 0.00 - 0.50 K/[facility] LAB HEMETOLOGY METHOD 09/22/2024 7:40 PM EST [facility] Basophils Absolute 0.05 0.00 - 0.20 K/[facility] LAB HEMETOLOGY METHOD 09/22/2024 7:40 PM EST [facility] Immature Granulocytes Absolute 0.02 0.00 - 0.03 K/[facility] LAB HEMETOLOGY METHOD 09/22/2024 7:40 PM EST [facility] Blood Venous blood specimen / Unknown 09/22/2024 09/22/2024 6:24 PM EST us Troy GAR LAB BLOOD ORDERABLES Final Res ult [facility] [address] [place] [address], * (ABNORMAL) Prostate specific antigen screen (09/22/2024 12:00 AM EST) PSA 27.54(H) 0.00 - 4.00 ng/mL LAB CHEMISTRY METHOD 09/22/2024 8:21 PM EST [facility] Blood Venous blood specimen / Unknown 09/22/2024 09/22/2024 6:24 PM EST Narrative [facility] - 09/22/2024 8:21 PM EST The Siemens Advia Centaur Chemiluminescent Immunoassay is used. Results obtained with different assay methods or kits cannot be used interchangeably. Results cannot be interpreted as absolute evidence of the presence or absence of malignant disease. us Troy GAR LAB BLOOD ORDERABLES Final Res ult Performing Organization Address [facility]/ZIP Co de Phone Number [facility] [address] [place] [address], [place] [phone] * Magnesium (09/22/2024 12:00 AM EST) Magnesium 2.1 1.9 - 2.6 mg/dL LAB CHEMISTRY METHOD 09/22/2024 8:12 PM EST [facility] Blood Venous blood specimen / Unknown 09/22/2024 09/22/2024 6:24 PM EST Troy GAR LAB BLOOD ORDERABLES Final Res ult Performing Organization Address [facility] Co de Phone Number [facility] [address] [place] [address], [place] [phone] * B-type natriuretic peptide (09/22/2024 12:00 AM EST) BNP 17 <=100 pcg/mL LAB CHEMISTRY METHOD 09/22/2024 8:32 PM EST [facility] Blood Venous blood specimen / Unknown 09/22/2024 09/22/2024 6:24 PM EST us Troy GAR LAB BLOOD ORDERABLES Final Res ult Performing Organization Address City/[facility]/ZIP Co de Phone Number [facility] [address] [place] [address], [place] [phone] * Vitamin B12 (09/22/2024 12:00 AM EST) Vitamin B-12 560 250 - 900 pcg/mL LAB CHEMISTRY METHOD 09/22/2024 8:34 PM EST [facility] Blood Venous blood specimen / Unknown 09/22/2024 09/22/2024 6:24 PM EST us Troy GAR LAB BLOOD ORDERABLES Final Res ult Performing Organization Address City/[facility]/ZIP Co de Phone Number [facility] [address] [place] [address], [place] [phone] * LDL cholesterol, direct (09/22/2024 12:00 AM EST) LDL Direct 59 <=100 mg/dL LAB CHEMISTRY METHOD 09/22/2024 8:12 PM EST [facility] Blood Venous blood specimen / Unknown 09/22/2024 09/22/2024 6:24 PM EST us Troy GAR LAB BLOOD ORDERABLES Final Res ult Performing Organization Address [facility] Co de Phone Number [facility] [address] [place] [address], [place] [phone] * Vitamin D 25 hydroxy (09/22/2024 12:00 AM EST) Vit D, 25-Hydroxy 30.1 30.0 - 80.0 ng/mL LAB CHEMISTRY METHOD 09/22/2024 8:21 PM EST [facility] Blood Venous blood specimen / Unknown 09/22/2024 09/22/2024 6:24 PM EST us Troy GAR LAB BLOOD ORDERABLES Final Res ult Performing Organization Address City/[facility]/ZIP Co de Phone Number [facility] [address] [place] [address], [place] [phone] * Lipid panel with reflex to direct LDL (09/22/2024 12:00 AM EST) Cholesterol 122 0 - 200 mg/dL LAB CHEMISTRY METHOD 09/22/2024 8:34 PM EST [facility] Triglycerides 90 0 - 150 mg/dL LAB CHEMISTRY METHOD 09/22/2024 8:34 PM [facility] HDL 56 >=40 mg/dL LAB CHEMISTRY METHOD 09/22/2024 8:34 PM [facility] LDL Calculated 48 0 - 100 mg/dL LAB CHEMISTRY METHOD 09/22/2024 8:34 PM [facility] VLDL Cholesterol Jaya 18 mg/dL LAB CHEMISTRY METHOD 09/22/2024 8:34 PM [facility] Non HDL Chol. (LDL+VLDL) 66 <145 mg/dL LAB CHEMISTRY METHOD 09/22/2024 8:34 PM [facility] Chol/HDL Ratio 2.2 0.0 - 4.4 LAB CHEMISTRY METHOD 09/22/2024 8:34 PM [facility] Blood Venous blood specimen / Unknown 09/22/2024 09/22/2024 6:24 PM EST us Troy GAR LAB BLOOD ORDERABLES Final Res ult [facility] [address] [place] [address], * (ABNORMAL) Comprehensive metabolic panel (09/22/2024 12:00 AM EST) Sodium 141 133 - 145 mmol/L LAB CHEMISTRY METHOD 09/22/2024 8:12 PM [facility] Potassium 4.3 3.5 - 5.5 mmol/L LAB CHEMISTRY METHOD 09/22/2024 8:12 PM [facility] Chloride 111(H) 96 - 110 mmol/L LAB CHEMISTRY METHOD 09/22/2024 8:12 PM [facility] CO2 26 21 - 32 mmol/L LAB CHEMISTRY METHOD 09/22/2024 8:12 PM [facility] Anion Gap 4 3 - 11 LAB CHEMISTRY METHOD 09/22/2024 8:12 PM [facility] Glucose 101(H) 70 - 100 mg/dL LAB CHEMISTRY METHOD 09/22/2024 8:12 PM [facility] BUN 20 5 - 25 mg/dL LAB CHEMISTRY METHOD 09/22/2024 8:12 PM [facility] Creatinine 0.93 0.70 - 1.30 mg/dL LAB CHEMISTRY METHOD 09/22/2024 8:12 PM [facility] eGFR 78 >=60 mL/min/1. 73m2 LAB CHEMISTRY METHOD 09/22/2024 8:12 PM [facility] Comment:Calculation based on the??Chronic Kidney Disease Epidemiology Collaboration (CKD-EPI) equation refit??without adjustment for race. BUN/Creatinine Ratio 21.5 LAB CHEMISTRY METHOD 09/22/2024 8:12 PM [facility] Calcium 9.2 8.5 - 10.5 mg/dL LAB CHEMISTRY METHOD 09/22/2024 8:12 PM [facility] AST (SGOT) 22 10 - 42 unit/L LAB CHEMISTRY METHOD 09/22/2024 8:12 PM [facility] ALT (SGPT) 36 10 - 60 unit/L LAB CHEMISTRY METHOD 09/22/2024 8:12 PM [facility] Alkaline Phosphatase 160(H) 42 - 121 unit/L LAB CHEMISTRY METHOD 09/22/2024 8:12 PM [facility] Total Protein 7.1 6.0 - 8.0 g/dL LAB CHEMISTRY METHOD 09/22/2024 8:12 PM [facility] Albumin 3.7 3.2 - 5.0 g/dL LAB CHEMISTRY METHOD 09/22/2024 8:12 PM [facility] Total Bilirubin 0.7 0.0 - 1.4 mg/dL LAB CHEMISTRY METHOD 09/22/2024 8:12 PM [facility] Blood Venous blood specimen / Unknown 09/22/2024 09/22/2024 6:24 PM EST us Troy GAR LAB BLOOD ORDERABLES Final Res ult [facility] [address] [place] [address], documented in this encounter Visit Diagnoses Diagnosis Chronic obstructive pulmonary disease, unspecified (CMS/HCC V24, CMS/[facility] V28) Type 2 diabetes mellitus without complications (CMS/HCC V24, CMS/[facility] V28) documented in this encounter Care Teams Machine Overhauler Relationship Specialty Start Date End Date Troy Butcher PA [address] [address] PCP - General Primary Care 12/09/24 documented as of this encounter
== END 2025-02-15 13:57 | disposition home or self-care (01) ==
LOC: HO.ENCR 12:59
PROVIDERS: Visit Provider Student in an Organized Health Care Education/Training Program
DX: E04.1 Nontoxic single thyroid nodule (principal)
CPT/HCPCS: 99214

== ENCOUNTER → 2025-02-15 12:58 | Outpatient (BNVA) | payer MEDICARE, OTHER, SELFPAY | PROVIDERS: Visit Provider Student in an Organized Health Care Education/Training Program | DX: E04.1 Nontoxic single thyroid nodule (principal) | CPT/HCPCS: 99212 ==

== ENCOUNTER 2025-02-27 13:43 | Outpatient (AMB) | payer MEDICARE, OTHER, SELFPAY ==
[2025-02-27 13:46] VITALS: BP 134/66; PULSE 82; O2SAT 93; BMI 29.4
--- NOTE | 2025-02-27 13:46 | MHC.OFFVIS ---
Vital Signs 02/27/25 13:46 Height 6 ft Weight 217 lb 2.485 oz BMI 29.4 BP 134/66 Blood Pressure Location Lt brachial Position Sitting Pulse 82 Pulse Source Pulse Oximeter Pulse Oximetry (%) 93 Oxygen Delivery Method Room Air Intake Visit Reasons: COPD [employer] Assistant Required: No Accompanied by: Spouse Allergies Sulfa Drugs Allergy (Intermediate, Uncoded 02/15/25 13:07) Vomiting HPI Comments Details: The patient is an 89-year-old gentleman known COPD and MTB. Back in the springtime he did have an exacerbation with bronchitis. He required medicines including antibiotics at this time. He has been feeling better under trilogy inhaler. The trilogy inhaler has improved his respiratory status where he can actually take breaks from the oxygen. Unfortunately, this inhalers not cover through the [place] system is extremely expensive for him to get. Therefore we have to consider an alternative to the trelegy at this time and therefore will try this the O2 with the Flovent inhaler and see if this is as effective. If it is not effective then we will perform a PA through the [place] system in order to getting the medication that he needs. A big issue is that he was admitted to [facility] back in the summertime in April of 2019 with a heart attack. He was taking care [facility]. He did have a chest x-ray there not take a look at that to make sure that we add that to the documentation. He has been using the oxygen and it has been very helpful and beneficial. 12/04/2022 the patient is here for a pulmonary follow-up visit. Overall the patient continues to do well. The oxygen therapy has been affecting beneficial. He does use it with activity and also with sleep. The patient continues with his respiratory therapy with good effect. We again looked at his previous chest x-ray demonstrating elevation in the diaphragm and also atelectasis. He continues on the Trelegy inhaler with good effect. He needs to monitor closely for any worsening glaucoma. Will follow-up in 12 months with cxr. 06/03/2024 the patient is here for a pulmonary follow-up visit. Overall the patient has been doing well. Continues to have dyspnea on exertion. [id number] severity. He also continues to use the oxygen with good effect. We did review his previous chest x-ray demonstrating some pleural parenchymal scarring. This is likely related to his exposure to asbestos. 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 Subsequently after that after he returned from the he was diagnosed with tuberculosis where he spent 8-9 months in a solitary him. The patient ultimately was released after complete treatment of the disease. And therefore left with some scarring of the lungs as well. He continues uses respiratory therapy with good effect. The patient also has been using the oxygen with good effect. Will have him get a chest x-ray today to see if there is any progression of his underlying pleural parenchymal disease. 11/16/2024 the patient is here for a pulmonary follow-up visit. Overall he is doing okay. The patient had 1 episode were right-sided chest discomfort. He did take the inhaler and then place him oxygen and he felt better. Has not had any more episodes like that. He does have some reproducible discomfort on the right acromion joint. He also did have a CT scan of the chest on 10/03/2024 that we personally reviewed in the office. No abnormalities to explain the right-sided chest discomfort. Although the patient does have moderate degree of emphysema, pleural thickening with some small areas of asbestos. In addition to some interstitial lung disease. I do believe that she has his time in the [place] exposed to asbestos resulted in some of these changes. In addition to this he does have thyroid nodule on the right side. It was recommended that he get an ultrasound. Will go ahead and request the ultrasound at this time and then he should follow-up with either primary care or endocrinology. He will continue with the Trelegy. Will see if we can get the medication from the [place] since it has been working effectively for him. He continues use the oxygen with good effect. Will follow-up in 6 months. 02/27/2025 the patient is here for pulmonary follow-up visit. Overall he is doing well from a respiratory status. Did follow-up with Endocrine and currently going to be followed closely for his thyroid findings. But overall good news no interventions required at this time. From a pulmonary standpoint the patient is doing well. He continues use the oxygen at nighttime. We did again review the CT scan of the chest that he had back in September demonstrating the pleural based thickening consistent with the asbestos exposure also has some emphysema in the upper lung zones. As far as his history of tuberculosis he I do not see any sequela of previous tuberculosis at this time which is reassuring as well. Overall the patient is doing well he is going to continue with the current respiratory therapy it will plan to follow-up sometime in early spring with a chest x-ray. If he develops any worsening symptoms prior to this he will call for an earlier assessment. COUNTS INCLUDE 234 BEDS AT THE [facility] Medical History (Updated 02/27/25 @ 22:09 by Phuc Card MD) Thyroid nodule Tuberculosis Asbestos-induced pleural plaque Abnormal chest x-ray Atelectasis Elevated diaphragm Chronic respiratory failure COPD (chronic obstructive pulmonary disease) Surgical History Hx of heart artery stent History of knee replacement History of circumcision Hx of hernia repair History of prostate surgery Family History Father No problems noted. Social History Patient Tobacco Use Status: Former Tobacco user Tobacco use type: Cigarette Years Smoked: Quit 1997 Review of Systems Const Denies night sweats Eyes Reports loss of vision ENT Denies change in voice, Denies lip swelling, Denies mouth pain, Reports nasal congestion, Reports nasal discharge and Denies tongue swelling Card Denies chest pain and Reports dyspnea on exertion Resp Reports cough and Reports dyspnea on exertion GI Denies abdominal pain Musc Denies no additional complaints Neuro Denies Neuro-related abnormal movements and Reports loss of vision Psych Denies no additional complaints Russ/Lymph Denies easy bleeding and Denies lymphadenopathy Aller/Immun Denies lip swelling and Denies tongue swelling Physical Exam Vital Signs: Last Vital Signs Pulse 82 02/27/25 13:46 BP 134/66 02/27/25 13:46 Pulse Ox 93 02/27/25 13:46 Oxygen Delivery Method Room Air 02/27/25 13:46 BMI result Body Mass Index 29.4 Const General: alert Neck Neck: Yes normal visual inspection, Yes full ROM and Yes no lymphadenopathy Chest Chest palpation & inspection: normal inspection of the chest Resp Auscultation: no rales, no rhonchi, no wheezes and diminished lung sounds Cardio Rate: regular rate Rhythm: regular rhythm Heart sounds: S1 normal heart sound present and S2 normal heart sound present GI Palpation (GI): Soft to palpation and nontender Auscultation: normal bowel sounds General: Yes no CVA tenderness Back/Spine/Pelvis Back: no CVA tenderness Skin General skin exam: rashes and/or lesions noted Assessment & Plan Assessment & Plan (1) Elevated diaphragm: Comment: chronic Code(s): J98.6 - Disorders of diaphragm Category: Medical Plan: Incentive spirometry (2) Chronic respiratory failure: Comment: Due to chronic stable COPD Code(s): J96.10 - Chronic respiratory failure, unspecified whether with hypoxia or hypercapnia Category: Medical Qualifiers: Respiratory failure complication: hypoxia Qualified Code(s): J96.11 - Chronic respiratory failure with hypoxia Plan: Continue oxygen supplementation 2 L pulse with activity and 2 L at night (3) COPD (chronic obstructive pulmonary disease): Code(s): J44.9 - Chronic obstructive pulmonary disease, unspecified Category: Medical Qualifiers: COPD type: chronic bronchitis Chronic bronchitis type: simple Qualified Code(s): J41.0 - Simple chronic bronchitis Plan: Cont respiratory therapy (4) Asbestos-induced pleural plaque: Code(s): J92.0 - Pleural plaque with presence of asbestos Category: Medical Plan Repeat CXR Spring 2025 continue Trelegy inhaler continue oxygen supplementation with activity at 2L/pulse and sleep 2L the patient does have evidence of asbestos disease in addition to his history of tuberculosis likely both related to his time serving in the [employer]. follow-up Spring 2025 Orders: Orders XR chest 2V 6 Months J92.0 - Pleural plaque with presence of asbestos Coding Level of Care Code Est Pt Level 4 (68812) Complex EM visit Add On G2211 Diagnoses Elevated diaphragm J98.6 Chronic respiratory failure with hypoxia J96.11 Respiratory failure complication: hypoxia Simple chronic bronchitis J41.0 COPD type: chronic bronchitis Chronic bronchitis type: simple Asbestos-induced pleural plaque J92.0 Time Spent (min) 17
--- OUTSIDE RECORDS SUMMARY | 2025-02-27 15:20 | XMS_ITS | Encounter Summary ---
Author Organization [facility] Address [address] [place] [address] Care Team Providers Care Search Analyst Name Role Phone Troy Butcher Primary Care Provider [phone] Encounter Details Date Type Department Care Team (Latest Contact Info) Description 09/22/2024 Lab Requisition [facility] - Main Lab [address] [facility] [place] [id number] Troy Butcher PA [address] [facility] [address] [place] [address] Chronic obstructive pulmonary disease, unspecified (CMS/HCC V24, [...] Description 03/10/2025 8:00 AM EDT Ancillary Procedure [facility] [address] [place] [address] documented as of this encounter [...] Hold for add-ons. 09/22/2024 8:01 PM EST [facility] Comment:Auto resulted. Blood Venous blood specimen / Unknown 09/22/2024 09/22/2024 6:24 PM EST us Troy GAR LAB BLOOD ORDERABLES Final Res ult [facility] [address] [place] [address], [place] [phone] * (ABNORMAL) CBC auto differential (09/22/2024 12:00 AM EST) [facility] WBC 8.9 4.8 - 10.8 K/mcL LAB HEMETOLOGY METHOD 09/22/2024 7:40 PM [facility] RBC 4.70 4.50 - 5.50 M/mcL LAB HEMETOLOGY METHOD 09/22/2024 7:40 PM [facility] Hemoglobin 14.7 13.5 - 17.5 g/dL LAB HEMETOLOGY METHOD 09/22/2024 7:40 PM [facility] Hematocrit 45.8 42.0 - 54.0 % LAB HEMETOLOGY METHOD 09/22/2024 7:40 PM [facility] MCV 97.9 79.0 - 98.0 FL LAB HEMETOLOGY METHOD 09/22/2024 7:40 PM [facility] MCH 31.4 27.0 - 32.0 pcg LAB HEMETOLOGY METHOD 09/22/2024 7:40 PM [facility] MCHC 32.1 32.0 - 37.0 g/dL LAB HEMETOLOGY METHOD 09/22/2024 7:40 PM [facility] RDW 13.3 11.0 - 15.0 % LAB HEMETOLOGY METHOD 09/22/2024 7:40 PM [facility] Platelets 151 130 - 400 K/mcL LAB HEMETOLOGY METHOD 09/22/2024 7:40 PM [facility] MPV 12.4(H) 7.0 - 11.0 FL LAB HEMETOLOGY METHOD 09/22/2024 7:40 PM [facility] NRBC 0.0 <1.0 % LAB HEMETOLOGY METHOD 09/22/2024 7:40 PM [facility] NRBC Absolute 0.00 <0.10 K/mcL LAB HEMETOLOGY METHOD 09/22/2024 7:40 PM [facility] Neutrophils Relative 65.2 % LAB HEMETOLOGY METHOD 09/22/2024 7:40 PM [facility] Lymphocytes Relative 23.1 % LAB HEMETOLOGY METHOD 09/22/2024 7:40 PM [facility] Monocytes Relative 9.5 % LAB HEMETOLOGY METHOD 09/22/2024 7:40 PM [facility] Eosinophils Relative 1.4 % LAB HEMETOLOGY METHOD 09/22/2024 7:40 PM [facility] Basophils Relative 0.6 % LAB HEMETOLOGY METHOD 09/22/2024 7:40 PM [facility] Immature Granulocytes Relative 0.2 % LAB HEMETOLOGY METHOD 09/22/2024 7:40 PM [facility] Neutrophils Absolute 5.78 1.50 - 7.00 K/mcL LAB HEMETOLOGY METHOD 09/22/2024 7:40 PM [facility] Lymphocytes Absolute 2.05 1.00 - 5.00 K/mcL LAB HEMETOLOGY METHOD 09/22/2024 7:40 PM EST [facility] Monocytes Absolute 0.84 0.20 - 1.00 K/[facility] LAB HEMETOLOGY METHOD 09/22/2024 7:40 PM EST [facility] Eosinophils Absolute 0.12 0.00 - 0.50 K/[facility] LAB HEMETOLOGY METHOD 09/22/2024 7:40 PM EST [facility] Basophils Absolute 0.05 0.00 - 0.20 K/[facility] LAB HEMETOLOGY METHOD 09/22/2024 7:40 PM EST [facility] Immature Granulocytes Absolute 0.02 0.00 - 0.03 K/[facility] LAB HEMETOLOGY METHOD 09/22/2024 7:40 PM EST [facility] Blood Venous blood specimen / Unknown 09/22/2024 09/22/2024 6:24 PM EST us Troy GAR LAB BLOOD ORDERABLES Final Res ult [facility] [address] [place] [address], * (ABNORMAL) Prostate specific antigen screen (09/22/2024 12:00 AM EST) PSA 27.54(H) 0.00 - 4.00 ng/mL LAB CHEMISTRY METHOD 09/22/2024 8:21 PM EST [facility] Blood Venous blood specimen / Unknown 09/22/2024 09/22/2024 6:24 PM EST Narrative [facility] - 09/22/2024 8:21 PM EST The Siemens Advia Centaur Chemiluminescent Immunoassay is used. Results obtained with different assay methods or kits cannot be used interchangeably. Results cannot be interpreted as absolute evidence of the presence or absence of malignant disease. us Troy GAR LAB BLOOD ORDERABLES Final Res ult Performing Organization Address [facility]/ZIP Co de Phone Number [facility] [address] [place] [address], [place] [phone] * Magnesium (09/22/2024 12:00 AM EST) Magnesium 2.1 1.9 - 2.6 mg/dL LAB CHEMISTRY METHOD 09/22/2024 8:12 PM EST [facility] Blood Venous blood specimen / Unknown 09/22/2024 09/22/2024 6:24 PM EST Troy GAR LAB BLOOD ORDERABLES Final Res ult Performing Organization Address [facility]/[place] Co de Phone Number [facility] [address] [place] [address], [place] [phone] * B-type natriuretic peptide (09/22/2024 12:00 AM EST) BNP 17 <=100 pcg/mL LAB CHEMISTRY METHOD 09/22/2024 8:32 PM EST [facility] Blood Venous blood specimen / Unknown 09/22/2024 09/22/2024 6:24 PM EST us Troy GAR LAB BLOOD ORDERABLES Final Res ult Performing Organization Address City/[facility]/ZIP Co de Phone Number [facility] [address] [place] [address], [place] [phone] * Vitamin B12 (09/22/2024 12:00 AM EST) Vitamin B-12 560 250 - 900 pcg/mL LAB CHEMISTRY METHOD 09/22/2024 8:34 PM EST [facility] Blood Venous blood specimen / Unknown 09/22/2024 09/22/2024 6:24 PM EST us Troy GAR LAB BLOOD ORDERABLES Final Res ult Performing Organization Address City/[facility]/ZIP Co de Phone Number [facility] [address] [place] [address], [place] [phone] * LDL cholesterol, direct (09/22/2024 12:00 AM EST) LDL Direct 59 <=100 mg/dL LAB CHEMISTRY METHOD 09/22/2024 8:12 PM EST [facility] Blood Venous blood specimen / Unknown 09/22/2024 09/22/2024 6:24 PM EST us Troy GAR LAB BLOOD ORDERABLES Final Res ult Performing Organization Address [facility]/[place] Co de Phone Number [facility] [address] [place] [address], [place] [phone] * Vitamin D 25 hydroxy (09/22/2024 12:00 AM EST) Vit D, 25-Hydroxy 30.1 30.0 - 80.0 ng/mL LAB CHEMISTRY METHOD 09/22/2024 8:21 PM EST [facility] Blood Venous blood specimen / Unknown 09/22/2024 09/22/2024 6:24 PM EST us Troy GAR LAB BLOOD ORDERABLES Final Res ult Performing Organization Address City/[facility]/ZIP Co de Phone Number [facility] [address] [place] [address], [place] [phone] * Lipid panel with reflex to direct LDL (09/22/2024 12:00 AM EST) Cholesterol 122 0 - 200 mg/dL LAB CHEMISTRY METHOD 09/22/2024 8:34 PM EST [facility] Triglycerides 90 0 - 150 mg/dL LAB CHEMISTRY METHOD 09/22/2024 8:34 PM [facility] HDL 56 >=40 mg/dL LAB CHEMISTRY METHOD 09/22/2024 8:34 PM [facility] LDL Calculated 48 0 - 100 mg/dL LAB CHEMISTRY METHOD 09/22/2024 8:34 PM [facility] VLDL Cholesterol Jaya 18 mg/dL LAB CHEMISTRY METHOD 09/22/2024 8:34 PM [facility] Non HDL Chol. (LDL+VLDL) 66 <145 mg/dL LAB CHEMISTRY METHOD 09/22/2024 8:34 PM [facility] Chol/HDL Ratio 2.2 0.0 - 4.4 LAB CHEMISTRY METHOD 09/22/2024 8:34 PM [facility] Blood Venous blood specimen / Unknown 09/22/2024 09/22/2024 6:24 PM EST us Troy GAR LAB BLOOD ORDERABLES Final Res ult [facility] [address] [place] [address], * (ABNORMAL) Comprehensive metabolic panel (09/22/2024 12:00 AM EST) Sodium 141 133 - 145 mmol/L LAB CHEMISTRY METHOD 09/22/2024 8:12 PM [facility] Potassium 4.3 3.5 - 5.5 mmol/L LAB CHEMISTRY METHOD 09/22/2024 8:12 PM [facility] Chloride 111(H) 96 - 110 mmol/L LAB CHEMISTRY METHOD 09/22/2024 8:12 PM [facility] CO2 26 21 - 32 mmol/L LAB CHEMISTRY METHOD 09/22/2024 8:12 PM [facility] Anion Gap 4 3 - 11 LAB CHEMISTRY METHOD 09/22/2024 8:12 PM [facility] Glucose 101(H) 70 - 100 mg/dL LAB CHEMISTRY METHOD 09/22/2024 8:12 PM [facility] BUN 20 5 - 25 mg/dL LAB CHEMISTRY METHOD 09/22/2024 8:12 PM [facility] Creatinine 0.93 0.70 - 1.30 mg/dL LAB CHEMISTRY METHOD 09/22/2024 8:12 PM [facility] eGFR 78 >=60 mL/min/1. 73m2 LAB CHEMISTRY METHOD 09/22/2024 8:12 PM [facility] Comment:Calculation based on the??Chronic Kidney Disease Epidemiology Collaboration (CKD-EPI) equation refit??without adjustment for race. BUN/Creatinine Ratio 21.5 LAB CHEMISTRY METHOD 09/22/2024 8:12 PM [facility] Calcium 9.2 8.5 - 10.5 mg/dL LAB CHEMISTRY METHOD 09/22/2024 8:12 PM [facility] AST (SGOT) 22 10 - 42 unit/L LAB CHEMISTRY METHOD 09/22/2024 8:12 PM [facility] ALT (SGPT) 36 10 - 60 unit/L LAB CHEMISTRY METHOD 09/22/2024 8:12 PM [facility] Alkaline Phosphatase 160(H) 42 - 121 unit/L LAB CHEMISTRY METHOD 09/22/2024 8:12 PM [facility] Total Protein 7.1 6.0 - 8.0 g/dL LAB CHEMISTRY METHOD 09/22/2024 8:12 PM [facility] Albumin 3.7 3.2 - 5.0 g/dL LAB CHEMISTRY METHOD 09/22/2024 8:12 PM [facility] Total Bilirubin 0.7 0.0 - 1.4 mg/dL LAB CHEMISTRY METHOD 09/22/2024 8:12 PM [facility] Blood Venous blood specimen / Unknown 09/22/2024 09/22/2024 6:24 PM EST us Troy GAR LAB BLOOD ORDERABLES Final Res ult [facility] [address] [place] [address], documented in this encounter Visit Diagnoses Diagnosis Chronic obstructive pulmonary disease, unspecified (CMS/HCC V24, CMS/[facility] V28) Type 2 diabetes mellitus without complications (CMS/HCC V24, CMS/[facility] V28) documented in this encounter Care Teams Search Analyst Relationship Specialty Start Date End Date Troy Butcher PA [address] [address] PCP - General Primary Care 12/09/24 documented as of this encounter
== END 2025-02-27 14:13 | disposition home or self-care (01) ==
LOC: HO.HPS 13:44
PROVIDERS: PCP Internal Medicine; Visit Provider Hospitalist
DX: J98.6 Disorders of diaphragm (principal); J96.11 Chronic respiratory failure with hypoxia; J41.0 Simple chronic bronchitis; J92.0 Pleural plaque with presence of asbestos
CPT/HCPCS: 99214; G2211

== ENCOUNTER → 2025-02-27 13:43 | Outpatient (BNVA) | payer MEDICARE, OTHER, SELFPAY | PROVIDERS: PCP Internal Medicine; Visit Provider Hospitalist | DX: J96.11 Chronic respiratory failure with hypoxia (principal); J98.6 Disorders of diaphragm; J41.0 Simple chronic bronchitis; J92.0 Pleural plaque with presence of asbestos | CPT/HCPCS: 99212 ==